=== PATIENT | female | born 1945 | race Caucasian/White ===

== ENCOUNTER → 2017-12-12 16:00 | Outpatient (CLI) | payer MEDICARE, OTHER, SELFPAY ==
--- NOTE | 2017-12-12 16:06 | RAD_ITS ---
STUDY: X-RAY CHEST REASON FOR EXAM: Female, 72 years old. Flulike symptoms. TECHNIQUE: PA and lateral views of the chest. COMPARISON: CT of the chest dated March 25, 2013. FINDINGS: The lungs are expanded. There is mild prominence of bronchovascular markings. There is no demonstrated pleural abnormality. There is mild cardiac enlargement. Normal mediastinum and maria a. There is prominence of the pulmonary hilar arteries with peripheral pulmonary vascular congestion. There is atherosclerotic tortuosity of the aortic arch and descending thoracic aorta. There is an increased kyphosis of the thoracic spine. There is multilevel spondylosis of the thoracic spine. Normal visualized ribs, clavicles, and shoulders. There is no demonstrated abnormality of the visualized soft tissue structures of the upper abdomen. RAD/Chest PA and Lateral IMPRESSION: Mild cardiomegaly and pulmonary congestion. Electronically Signed: Dulce Maria Wills MD at 10:31 EST , Service support ,
== END ==
PROVIDERS: Family Provider Family Medicine; PCP Family Medicine; Visit Provider Family Medicine
DX: R68.89 Other general symptoms and signs (principal)
CPT/HCPCS: 71046

== ENCOUNTER → 2017-12-22 16:36 | Outpatient (CLI) | payer MEDICARE, OTHER, SELFPAY ==
[2017-12-22 18:41] LABS: Absolute Lymphocyte Count 1.14 X10^3/ul (0.83-4.51); Absolute Neutrophil Count 6.1 X10^3/uL (2.0-7.7); Basophil% 1.2 % (0-1); Eosinophil# 0.29 X10^3/uL; Eosinophils% 3.5 % (0-5); Hematocrit 37.8 % (37-47); Hemoglobin 12.3 g/dl (12.0-15.0); Lymphocyte # 1.14 X10^3/ul (4.0); Lymphocyte % 13.7 % (19-41); Mean Corp Hgb Conc 32.5 g/gl (32-36); Mean Corpuscular Hgb 29.2 pg (27.0-32.0); Mean Corpuscular Volume 89.8 fL (81-99); Mean Platelet Vol. 11.1 fl (6.2-12.0); Monocyte# 0.72 X10^3/uL; Monocyte% 8.7 % (0-10); Neutrophil # 6.05 X10^3/uL (2.7-7.7); Neutrophil % 72.7 % (47-70); Platelet Count 285 K/mm3 (150-450); RBC Distribution Width CV 12.8 % (11.6-14.6); RBC Distribution Width SD 41.3 fl (35.1-43.9); Red Blood Count 4.21 M/mm3 (4.2-5.4); White Blood Count 8.3 K/mm3 (4.4-11.0)
[2017-12-22 18:54] LABS: ALB/GLOB Ratio 0.9 RATIO (0.9-2.4); AST(SGOT) 26 U/L (15-37); Alanine Aminotransfer ALT/SGPT 28 U/L (13-56); Albumin, Serum 3.5 g/dL (3.2-5.0); Alkaline Phosphatase 69 U/L (45-117); Anion Gap 8 (5-15); BUN 22 mg/dL (7-18); CRP 6.82 mg/L (0.0-3.0); Calcium,Total 9.1 mg/dL (8.5-10.1); Chloride 102 mmol/L (98-107); Creatinine, Serum 1.47 mg/dL (0.55-1.02); EST Glomerular Filtration Rate 37 mL/min (>60); Est Glom Filt Rate - Afr Amer 45 mL/min (>60); Globulin 3.8 g/dL (2.2-4.2); Glucose 110 mg/dL (74-106); Potassium 4.2 mmol/L (3.5-5.1); Protein, Total 7.3 g/dL (6.4-8.2); Sodium Level 138 mmol/L (136-145)
[2017-12-22 18:55] LABS: POSITIVE COUNT NO; POSITIVE DIFFERENTIAL NO; POSITIVE MORPHOLOGY NO
[2017-12-22 19:12] LABS: Erythrocyte Sedimentation Rate 68 mm/hr (0-30)
== END ==
PROVIDERS: Family Provider Family Medicine; PCP Family Medicine; Visit Provider Internal Medicine Rheumatology
DX: L40.59 Other psoriatic arthropathy (principal); M79.7 Fibromyalgia; L40.8 Other psoriasis; M15.9 Polyosteoarthritis, unspecified; K21.0 Gastro-esophageal reflux disease with esophagitis; M47.892 Other spondylosis, cervical region; E11.9 Type 2 diabetes mellitus without complications; I10 Essential (primary) hypertension; E78.5 Hyperlipidemia, unspecified; E03.9 Hypothyroidism, unspecified; J45.909 Unspecified asthma, uncomplicated; I89.0 Lymphedema, not elsewhere classified; L71.9 Rosacea, unspecified
CPT/HCPCS: 36415; 80053; 85025; 85652; 86140

== ENCOUNTER → 2018-01-07 13:07 | Outpatient (CLI) | payer MEDICARE, OTHER, SELFPAY ==
--- NOTE | 2018-01-07 14:32 | NEURO ---
NCS and/or EMG Patient Report Ordering Doctor: Randee Driver DATE OF SERVICE: 01/07/18 Tanisha Rutherford is a 72-year-old female presents for electrodiagnostic testing of the right upper limb. She has chief complaint of numbness and tingling in the right hand radiating to the elbow. Electrodiagnostic findings: Significant prolongation of right median motor distal latency with reduced amplitude and conduction velocity. Normal right ulnar motor response, including conduction across the elbow. Prolonged right median F wave. Prolonged right median sensory distal latency. Normal right ulnar and radial sensory responses. On needle EMG, all muscles tested in the right upper limb show no evidence of denervation with normal motor unit action potentials. Electrodiagnostic impression: This is an abnormal study in the right upper limb. 1. Electrodiagnostic findings demonstrate right-sided median mononeuropathy. This is consistent with a severe right carpal tunnel syndrome. 2. No electrodiagnostic evidence for cervical radiculopathy. If there are any further questions, please do not hesitate to contact me.
== END ==
PROVIDERS: Family Provider Family Medicine; PCP Family Medicine; Visit Provider Internal Medicine Rheumatology
DX: M06.4 Inflammatory polyarthropathy (principal); M79.7 Fibromyalgia; M15.9 Polyosteoarthritis, unspecified; K21.0 Gastro-esophageal reflux disease with esophagitis; M47.892 Other spondylosis, cervical region; E11.9 Type 2 diabetes mellitus without complications; I10 Essential (primary) hypertension; E78.5 Hyperlipidemia, unspecified; E03.9 Hypothyroidism, unspecified; H40.9 Unspecified glaucoma; J45.909 Unspecified asthma, uncomplicated; G47.33 Obstructive sleep apnea (adult) (pediatric); I89.0 Lymphedema, not elsewhere classified; L71.9 Rosacea, unspecified
CPT/HCPCS: 95886; 95909

== ENCOUNTER → 2018-01-07 15:12 | Outpatient (CLI) | payer MEDICARE, OTHER, SELFPAY ==
[2018-01-07 17:36] LABS: Absolute Lymphocyte Count 1.04 X10^3/ul (0.83-4.51); Absolute Neutrophil Count 4.3 X10^3/uL (2.0-7.7); Basophil# 0.12 X10^3/uL; Basophil% 1.9 % (0-1); Eosinophil# 0.39 X10^3/uL; Eosinophils% 6.2 % (0-5); Hematocrit 37.4 % (37-47); Hemoglobin 12.1 g/dl (12.0-15.0); Lymphocyte # 1.04 X10^3/ul (4.0); Lymphocyte % 16.5 % (19-41); Mean Corp Hgb Conc 32.4 g/gl (32-36); Mean Corpuscular Hgb 28.7 pg (27.0-32.0); Mean Corpuscular Volume 88.8 fL (81-99); Mean Platelet Vol. 11.2 fl (6.2-12.0); Monocyte# 0.47 X10^3/uL; Monocyte% 7.5 % (0-10); Neutrophil # 4.26 X10^3/uL (2.7-7.7); Neutrophil % 67.7 % (47-70); Platelet Count 259 K/mm3 (150-450); RBC Distribution Width CV 12.7 % (11.6-14.6); RBC Distribution Width SD 40.9 fl (35.1-43.9); Red Blood Count 4.21 M/mm3 (4.2-5.4); White Blood Count 6.3 K/mm3 (4.4-11.0)
[2018-01-07 17:37] LABS: POSITIVE COUNT NO; POSITIVE DIFFERENTIAL NO; POSITIVE MORPHOLOGY NO
[2018-01-07 17:47] LABS: AST(SGOT) 22 U/L (15-37); Alanine Aminotransfer ALT/SGPT 25 U/L (13-56); Albumin, Serum 3.5 g/dL (3.2-5.0); Alkaline Phosphatase 65 U/L (45-117); Anion Gap 9 (5-15); BUN 25 mg/dL (7-18); BUN/Creat Ratio 21.7 RATIO (10-20); Calcium,Total 9.1 mg/dL (8.5-10.1); Chloride 104 mmol/L (98-107); Creatinine, Serum 1.15 mg/dL (0.55-1.02); EST Glomerular Filtration Rate 49 mL/min (>60); Est Glom Filt Rate - Afr Amer 60 mL/min (>60); Globulin 3.5 g/dL (2.2-4.2); Glucose 105 mg/dL (74-106); Potassium 4.4 mmol/L (3.5-5.1); Sodium Level 138 mmol/L (136-145)
== END ==
PROVIDERS: Family Provider Family Medicine; PCP Family Medicine; Visit Provider Internal Medicine Rheumatology
DX: M06.4 Inflammatory polyarthropathy (principal); M79.7 Fibromyalgia; M15.9 Polyosteoarthritis, unspecified; K21.0 Gastro-esophageal reflux disease with esophagitis; M47.892 Other spondylosis, cervical region; E11.9 Type 2 diabetes mellitus without complications; I10 Essential (primary) hypertension; E78.5 Hyperlipidemia, unspecified; E03.9 Hypothyroidism, unspecified; H40.9 Unspecified glaucoma; J45.909 Unspecified asthma, uncomplicated; G47.33 Obstructive sleep apnea (adult) (pediatric); I89.0 Lymphedema, not elsewhere classified; L71.9 Rosacea, unspecified
CPT/HCPCS: 36415; 80053; 85025; 95886; 95909

== ENCOUNTER → 2018-01-15 12:40 | Outpatient (CLI) | payer MEDICARE, OTHER, SELFPAY ==
--- NOTE | 2018-01-15 12:44 | ECHOCS_ITS ---
Reason For Study: CHF Procedure This was a 2D Doppler, Color Flow transthoracic echocardiogram. The study was technically difficult. The study was technically limited. Due to body habitus. Contrast injection was performed. Exam performed in department. Left Ventricle Normal LV size. Mild concentric left ventricular hypertrophy. Left ventricular systolic function is normal. The estimated ejection fraction is 55 %. No regional wall motion abnormalities noted. Right Ventricle Normal RV size. Normal systolic function. Atria The left atrium is mildly enlarged. Normal right atrium. Mitral Valve Mitral valve not well visualized. Tricuspid Valve The tricuspid valve is not well visualized. Mild (1+) tricuspid valve insufficiency. Pulmonary artery systolic pressure is 34 mmHg. Aortic Valve The aortic valve is not well visualized. Pulmonic Valve The pulmonic valve is not well visualized. Great Vessels Normal aortic root. The pulmonary artery is normal size. Normal inferior vena cava. Medication 22 gauge I.V. with prn adaptor inserted into right arm. Diluted definity 4.0ml given slow IV push to enhance endocardial definition. MMode/2D Measurements & Calculations LVIDd: 5.5 cm IVSd: 1.4 cm Ao root diam: 3.1 cm LVIDs: 3.7 cm LVPWd: 1.4 cm LA dimension: 4.5 cm RVDd: 3.1 cm FS: 32.2 % LAV(MOD-bp): 74.4 ml LA A4 area: 22.4 cm2 RA A4 area: 17.9 cm2 LAV(MOD-bp) Indexed: 31.6 ml/m2 LAV(MOD-sp2): 79.5 ml LAV(MOD-sp4): 68.9 ml Time Measurements MV dec time: 0.23 sec Doppler Measurements & Calculations MV E max dionicio: 110.0 cm/sec Lat Peak E' Dionicio: 12.2 cm/sec Med Peak E' Dionicio: 11.1 cm/sec MV A max dionicio: 124.5 cm/sec E/E' lat: 9.1 E/E' med: 9.9 MV E/A: 0.88 Ao V2 max: 168.7 cm/sec LV V1 max: 134.8 cm/sec PA V2 max: 119.4 cm/sec Ao max P.4 mmHg LV V1 max P.3 mmHg TR max dionicio: 267.9 cm/sec TR max P.3 mmHg Interpretation Summary Normal LV size. Mild concentric left ventricular hypertrophy. Left ventricular systolic function is normal. The estimated ejection fraction is 55 %. Mild (1+) tricuspid valve insufficiency. Pulmonary artery systolic pressure is 34 mmHg. Contrast injection was performed. Ordering Physician: Coral Lima Referring Physician: Coral Lima Performed By: Lou Govea RDCS, RVT
== END ==
PROVIDERS: Family Provider Family Medicine; PCP Family Medicine; Visit Provider Family Medicine
DX: I50.9 Heart failure, unspecified (principal); Z79.899 Other long term (current) drug therapy
CPT/HCPCS: 93306; Q9957; A4216; C8929

== ENCOUNTER 2018-02-11 06:31 | Day surgery (SDC) | payer MEDICARE, OTHER, SELFPAY ==
--- NOTE | 2018-02-05 10:58 | HP.PCM_ITS ---
History and Physical DATE OF SURGERY: 02/11/2018 SCHEDULED PROCEDURE: Right carpal tunnel release, trigger release right small finger HISTORY OF PRESENT ILLNESS: This is a 72-year-old female who is been having ongoing bilateral hand pain for approximately 4-5 months. Patient is right-hand dominant. She states the right is greater than the left. Patient reports numbness and tingling into the right index, middle, and ring fingers. She also complains of triggering and catching in the right small finger. She has difficulty with gripping objects. Patient states she drops things secondary to the pain and numbness and tingling. She cannot put on earrings due to this. Patient states the numbness and tingling does wake her up at night. She has tried bracing which has not been helpful. The numbness and tingling is now constant. She reports the left side is mostly at night and this seems to be exacerbated by increased used of the left hand. Patient denies any trauma or injury. After failing conservative measures and discussing all treatment options with Dr. Begum, the patient would like to proceed with a right carpal tunnel release and trigger finger release of the right small finger. Patient currently denies any chest pain, shortness of breath, fevers chills, recent infections. Patient has medical history pertinent for psoriatic arthritis, fibromyalgia, sleep apnea, diabetes. She has currently been taking Otezla in which she has been in a study. She states this is been helping her rheumatoid and psoriatic arthritis. 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 REVIEW OF SYSTEMS: ROS: Const: Denies change in appetite, fever,or weight change. CV: Denies chest pain, heart murmur and irregular heartbeat. Resp: Reports cough, pneumonia, SOB and wheezing, but denies tuberculosis. GI: Reports constipation, but denies diarrhea, difficulty swallowing, heartburn , nausea, bloody stools and vomiting. : . (F Genital Sx) Urinary: denies incontinence. Musculo: Reports limp, trouble walking and weakness, but denies leg swelling. Skin: Denies Raynaud's, history of shingles and tattoo. Neuro: Reports numbness/tingling but denies ambulatory dysfunction, dizziness and tremor. Psych: Reports insomnia, but denies anxiety and stress. Tate/Lymph: Reports anemia, bleeding/bruising tendency and past transfusion. Reviewed and updated. PAST MEDICAL HISTORY: Advance Care Plan: No Advance Directives Effective Date: 01/19/2018 PMH: Medical Problems: Arthritis - Osteo and rheumatoid Asthma, Fibromyalgia Psoriasis - psoriatic arthritis Sleep Apnea, Thyroid Disease, Vision Problems/Blind, Diabetes, Glaucoma Accidents: None Surgical Hx: Appendectomy, Gallbladder, Hysterectomy, Tubal Ligation, Tonsillectomy Anesthesia Complications: Nausea Assistive Devices: Glasses, Contacts, Cane Reviewed and updated. SOCIAL HISTORY: SH: Marital: .Occupation: Not Currently Working Retired.Work Status: Retired.Hand Dominance: Right-handed. Personal Habits: Cigarette Use: Former Cigarette Smoker.Alcohol: Occasionally.Drug Use: Denies Use.Enjoy Exercising: Exercises 1-3 x/month. Reviewed, no changes. VITALS: Ht: 64 Wt: 292lb Wt k.451 BMI: 50.1 BP: 130/80 Pulse: 78 Resp: 16 T: 98.2 T: 36.8C ALLERGIES: Penicillin Ketek MEDICATIONS: Levocetirizine Dihydrochloride 5 mg 1 by mouth every day, Omeprazole 40 mg 1 by mouth every day, Tramadol HCL 50 mg 1-2 by mouth every 6 hours as needed pain, Plaquenil 200 mg 1po bid, Calcium 600 600 mg 1 by mouth QDAY, Januvia 100 mg 1 by mouth every day, Cetirizine HCL 10 mg 1po qday, Montelukast Sodium 10 mg 1 by mouth every day, Co Q10 100 mg 1po qday, Pravastatin Sodium 20 mg daily, Gabapentin 400 mg 1po qday, Synthroid 175 mcg one PO daily except on friday, Otezla 30 mg 1 by mouth every day, Nexium 40 mg 1 by mouth every day, Enalapril Maleate 20 mg one PO daily PRE-OP EXAM: General appearance:NORMAL Other: Eyes: Conjunctivae and lids: NORMAL Pupils: ERR Ears, Nose, Mouth, and Throat: NORMAL Other: Inspection of lips, teeth and gums: NORMAL Other: Neck: Examination of neck: no masses noted. Respiratory: Assessment of respiratory effort: NORMAL Other: Auscultation of lungs: clear to auscultation no wheezes, rhonchi or rales. Cardiovascular: Auscultation of heart: regular rate and rhythm, no murmurs, gallops or rubs. Exam of carotid arteries: NORMAL Other: Gastrointestinal: Exam of abdomen: soft, nontender, nondistended bowel sounds present. PHYSICAL EXAMINATION: Evaluation of the right hand reveals tenderness to palpation over the A1 arturo of the right small finger. She does have active triggering. Remaining A1 pulleys are nontender palpation. She does have some mild thenar atrophy on the right. She has a positive failings, positive Tinel's, and positive carpal compression exam on the right. There is decreased sensation throughout the median nerve distribution. She has good range of motion of the right wrist. IMAGING STUDIES: EMG nerve conduction study exam was performed on January 07, 2018 which does reveal severe carpal tunnel syndrome on the right IMPRESSION: 1. Severe right carpal tunnel syndrome 2. Left carpal tunnel syndrome 3. Type 2 diabetes mellitus 4. Psoriatic and rheumatoid arthritis 5. Asthma 6. Sleep apnea: Currently uses BPAP 7. Thyroid disease 8. Fibromyalgia 9. Glaucoma PLAN: Dr. Begum did discuss and review with the patient all treatment options including surgical versus nonsurgical. Patient wishes to proceed with above- stated procedure. Potential risks, benefits, and complications of this procedure were discussed in detail including but not limited to , infection , nerve and blood vessel damage, persistent pain, numbness, tingling, paresthesias, blood clot, pulmonary embolism, and requirement for further surgery. The patient expressed full understanding has no further questions for the doctor. Patient does agree to proceed with the above-stated procedure and has signed the surgery consent form. ___ I have re-examined the patient. There are no clinical changes since date of exam. ___ See progress notes for changes. ___ Dictated on admission Date: Time: Signature:
[2018-02-11 06:58] VITALS: BP 153/52; PULSE 66; RESP 18; TEMP 36.9; O2SAT 96; BMI 51.2
[2018-02-11 07:15] LABS: Bedside Glucose 89 mg/dL (70-110)
[2018-02-11] MEDS: Clindamycin 900 MG/50 ML BAG 75 MG IV (07:57)
[2018-02-11] MEDS: Bupivacaine Mpf 0.5% 30 ML VIAL (08:15)
[2018-02-11 08:29] VITALS: BP 116/52; BP 153/52; PULSE 72; RESP 16; TEMP 36.9; O2SAT 97
[2018-02-11 08:35] VITALS: BP 119/53; BP 153/52; PULSE 71; RESP 18; O2SAT 97
--- NOTE | 2018-02-11 08:35 | PCM.OPRPT ---
Report of Operation Date of Procedure: 02/11/18 Pre-Operative Diagnosis: Right carpal tunnel syndrome. Right fifth digit trigger finger Post-Operative Diagnosis: Right carpal tunnel syndrome. Right fifth digit trigger finger Surgery/Procedure Performed:: 1. Right carpal tunnel release. 2. 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 After discussing risks and benefits including but not limited to blood loss, DVTs, PEs, neurovascular damage, infection, hematoma and general risk of anesthesia, the patient demonstrated understanding wish to proceed with right open carpal tunnel release Procedure: On the date of the procedure, the patient's right upper extremity was marked in the preoperative area. Patient was taken back to the operating room, where the tourniquet was placed on the right upper extremity. Patient was given light sedation. All bony prominences are identified well-padded. Anesthesia assumed control C-spine and airway and remained in control throughout the remainder the procedure. Abdullahi block was administered by anesthesia. The right upper extremity was prepped in sterile fashion. Surgeon then scrub. Upon reentering the room, the right upper extremity was prepped in a standard orthopedic fashion. A timeout was called and everyone agreed upon the side, the site, the procedure to be performed, patient identity and antibiotics given. The incision was marked out. Incision was taken at the skin subtenons tissue fat down to fascia. Fascia was then lightly tethered until the median nerve was visible. A [place] was placed proximally and distally, and then scissors were placed proximally and distally to release the transverse carpal ligament. During the release the others were never completely closed. The [place] was then placed proximally and distally once more to verify the transverse carpal ligament had been adequately released. The wound was then copiously irrigated out with normal saline. Wound was then closed using 3-0 nylon suture. Attention was then directed towards the fifth digit where the palmar crease was noted. A transverse incision was made in the palmar crease to the skin. Blunt dissection was taken down to subcutaneous tissues fat down to the A1 arturo. Once the A1 arturo was identified it was split longitudinally and a portion of the radial flap was dissected. Once it was completely released finger was taken through range of motion no active triggering was noted. 14 cc of 50-50 mixture of 1% lidocaine and 0.5% Sensorcaine without epinephrine injection was given at the 2 surgical sites. Xeroform dressing was placed, sterile dressing was placed, compressive dressing was placed. Tourniquet was let down. Volar splint was placed. Patient was awakened by anesthesia and transferred to the PACU for recovery. Postoperative plan: The patient will follow up in 2 weeks for removal splint removal sutures. At that time if they are doing well they will follow-up as needed. - Complications none - Admit VTE Documentation VTE Present on Admission: No VTE Mechan Device Prophylaxis: SCD's, Thigh High HARLEY Hose Reason prophylaxis not ordered:: Treatment Not Indicated
[2018-02-11 08:40] VITALS: BP 118/58; BP 153/52; PULSE 85; RESP 16; O2SAT 95
[2018-02-11 08:46] VITALS: BP 121/55; BP 153/52; PULSE 67; RESP 18; TEMP 36.9; O2SAT 94
[2018-02-11 09:30] VITALS: BP 153/52
== END 2018-02-11 09:37 | disposition home or self-care (01) ==
LOC: SDC 06:32 → AC 06:35
PROVIDERS: Family Provider Family Medicine; PCP Family Medicine; Visit Provider Specialist
PROC: (CPT 64721; principal; 2018-02-11 07:45)
DX: G56.01 Carpal tunnel syndrome, right upper limb (principal); M65.351 Trigger finger, right little finger; E11.9 Type 2 diabetes mellitus without complications; Z79.4 Long term (current) use of insulin; E78.00 Pure hypercholesterolemia, unspecified; K21.9 Gastro-esophageal reflux disease without esophagitis; Z79.899 Other long term (current) drug therapy; I10 Essential (primary) hypertension; G47.30 Sleep apnea, unspecified; Z87.891 Personal history of nicotine dependence; J45.909 Unspecified asthma, uncomplicated; M79.7 Fibromyalgia; M19.90 Unspecified osteoarthritis, unspecified site; E07.89 Other specified disorders of thyroid; E66.8 Other obesity; Z68.43 Body mass index [BMI] 50.0-59.9, adult; Z71.3 Dietary counseling and surveillance
CPT/HCPCS: 26055; 64721; 82962; J7120

== ENCOUNTER → 2018-03-11 16:00 | Outpatient (CLI) | payer MEDICARE, OTHER, SELFPAY ==
--- NOTE | 2018-03-11 16:10 | RAD_ITS ---
STUDY: X-RAY - LUMBAR SPINE REASON FOR EXAM: Female, 72 years old. Chronic back pain TECHNIQUE: 3 view(s) of the lumbar spine were obtained. COMPARISON: May 18, 2015 FINDINGS: Normal lumbar lordosis. There is no substantial scoliosis. There is a normal alignment of the vertebrae. There is multilevel endplate spondylosis of the lumbar vertebrae. There is multilevel facet hypertrophy. Normal disc space heights. There is atherosclerotic calcification of the abdominal aorta without a demonstrated aneurysm. RAD/Lumbar Spine 2 or 3 Views IMPRESSION: Degenerative changes of the spine, as detailed above. Electronically Signed: Marimar Heard MD at 23:25 EDT Tel , Service support ,
== END ==
PROVIDERS: Family Provider Family Medicine; PCP Family Medicine; Visit Provider Anesthesiology Pain Medicine
DX: M54.9 Dorsalgia, unspecified (principal); G89.29 Other chronic pain
CPT/HCPCS: 72100

== ENCOUNTER → 2018-04-02 13:09 | Outpatient (CLI) | payer MEDICARE, OTHER, SELFPAY ==
[2018-04-02 14:29] LABS: Absolute Lymphocyte Count 0.93 X10^3/ul (0.83-4.51); Absolute Neutrophil Count 5.4 X10^3/uL (2.0-7.7); Basophil# 0.09 X10^3/uL; Basophil% 1.3 % (0-1); Eosinophil# 0.22 X10^3/uL; Eosinophils% 3.1 % (0-5); Hematocrit 34.3 % (37-47); Hemoglobin 10.8 g/dl (12.0-15.0); Lymphocyte # 0.93 X10^3/ul (4.0); Lymphocyte % 13.1 % (19-41); Mean Corp Hgb Conc 31.5 g/gl (32-36); Mean Corpuscular Hgb 27.7 pg (27.0-32.0); Mean Corpuscular Volume 87.9 fL (81-99); Monocyte# 0.47 X10^3/uL; Monocyte% 6.6 % (0-10); Neutrophil # 5.39 X10^3/uL (2.7-7.7); Neutrophil % 75.8 % (47-70); POSITIVE COUNT NO; POSITIVE DIFFERENTIAL NO; POSITIVE MORPHOLOGY NO; Platelet Count 235 K/mm3 (150-450); RBC Distribution Width SD 44.5 fl (35.1-43.9); White Blood Count 7.1 K/mm3 (4.4-11.0)
[2018-04-02 14:51] LABS: Hemoglobin A1c 5.6 % (4.2-6.3)
[2018-04-02 15:03] LABS: AST(SGOT) 25 U/L (15-37); Alanine Aminotransfer ALT/SGPT 23 U/L (13-56); Albumin, Serum 3.4 g/dL (3.2-5.0); Alkaline Phosphatase 63 U/L (45-117); Anion Gap 6 (5-15); BUN 30 mg/dL (7-18); BUN/Creat Ratio 21.3 RATIO (10-20); Calcium,Total 8.6 mg/dL (8.5-10.1); Chloride 111 mmol/L (98-107); Creatinine, Serum 1.41 mg/dL (0.55-1.02); EST Glomerular Filtration Rate 39 mL/min (>60); Est Glom Filt Rate - Afr Amer 47 mL/min (>60); Globulin 3.3 g/dL (2.2-4.2); Glucose 122 mg/dL (74-106); Protein, Total 6.7 g/dL (6.4-8.2); Sodium Level 143 mmol/L (136-145)
== END ==
PROVIDERS: Family Provider Family Medicine; PCP Family Medicine; Visit Provider Family Medicine
DX: L40.59 Other psoriatic arthropathy (principal); M79.7 Fibromyalgia; L40.8 Other psoriasis; G56.01 Carpal tunnel syndrome, right upper limb; M15.9 Polyosteoarthritis, unspecified; K21.0 Gastro-esophageal reflux disease with esophagitis; M47.892 Other spondylosis, cervical region; E11.9 Type 2 diabetes mellitus without complications; I10 Essential (primary) hypertension; E78.5 Hyperlipidemia, unspecified; E03.9 Hypothyroidism, unspecified; H40.9 Unspecified glaucoma; J45.909 Unspecified asthma, uncomplicated
CPT/HCPCS: 36415; 80053; 83036; 84443; 85025

== ENCOUNTER → 2018-05-25 15:50 | Outpatient (CLI) | payer MEDICARE, OTHER, SELFPAY ==
[2018-05-25 18:07] LABS: Absolute Lymphocyte Count 1.09 X10^3/ul (0.83-4.51); Absolute Neutrophil Count 4.1 X10^3/uL (2.0-7.7); Basophil# 0.12 X10^3/uL; Eosinophil# 0.34 X10^3/uL; Eosinophils% 5.6 % (0-5); Hemoglobin 10.8 g/dl (12.0-15.0); Lymphocyte # 1.09 X10^3/ul (4.0); Lymphocyte % 17.8 % (19-41); Mean Corp Hgb Conc 31.8 g/gl (32-36); Mean Corpuscular Hgb 27.8 pg (27.0-32.0); Mean Corpuscular Volume 87.4 fL (81-99); Mean Platelet Vol. 11.1 fl (6.2-12.0); Monocyte% 8.2 % (0-10); Neutrophil # 4.06 X10^3/uL (2.7-7.7); Neutrophil % 66.2 % (47-70); Platelet Count 236 K/mm3 (150-450); RBC Distribution Width CV 12.4 % (11.6-14.6); RBC Distribution Width SD 38.8 fl (35.1-43.9); Red Blood Count 3.89 M/mm3 (4.2-5.4); White Blood Count 6.1 K/mm3 (4.4-11.0)
[2018-05-25 18:09] LABS: AST(SGOT) 22 U/L (15-37); Alanine Aminotransfer ALT/SGPT 28 U/L (13-56); Albumin, Serum 3.5 g/dL (3.2-5.0); Alkaline Phosphatase 67 U/L (45-117); Anion Gap 10 (5-15); BUN 24 mg/dL (7-18); BUN/Creat Ratio 18.6 RATIO (10-20); Calcium,Total 9.1 mg/dL (8.5-10.1); Chloride 105 mmol/L (98-107); Creatinine, Serum 1.29 mg/dL (0.55-1.02); EST Glomerular Filtration Rate 43 mL/min (>60); Est Glom Filt Rate - Afr Amer 52 mL/min (>60); Globulin 3.4 g/dL (2.2-4.2); Glucose 183 mg/dL (74-106); POSITIVE COUNT NO; POSITIVE DIFFERENTIAL NO; POSITIVE MORPHOLOGY NO; Potassium 4.6 mmol/L (3.5-5.1); Protein, Total 6.9 g/dL (6.4-8.2); Sodium Level 142 mmol/L (136-145)
== END ==
PROVIDERS: Family Provider Family Medicine; PCP Family Medicine; Visit Provider Family Medicine
DX: L40.59 Other psoriatic arthropathy (principal); M79.7 Fibromyalgia; L40.8 Other psoriasis; G56.01 Carpal tunnel syndrome, right upper limb; M15.9 Polyosteoarthritis, unspecified; K21.0 Gastro-esophageal reflux disease with esophagitis; M47.892 Other spondylosis, cervical region; E11.9 Type 2 diabetes mellitus without complications; E78.5 Hyperlipidemia, unspecified; E03.9 Hypothyroidism, unspecified; H40.9 Unspecified glaucoma; J45.909 Unspecified asthma, uncomplicated; I89.0 Lymphedema, not elsewhere classified
CPT/HCPCS: 36415; 80053; 85025

== ENCOUNTER → 2018-07-27 08:46 | Outpatient (CLI) | payer MEDICARE, OTHER, SELFPAY ==
[2018-07-27 10:11] LABS: Absolute Lymphocyte Count 1.24 X10^3/ul (0.83-4.51); Absolute Neutrophil Count 3.7 X10^3/uL (2.0-7.7); Basophil# 0.13 X10^3/uL; Basophil% 2.1 % (0-1); Eosinophil# 0.63 X10^3/uL; Eosinophils% 10.1 % (0-5); Hematocrit 35.8 % (37-47); Hemoglobin 11.4 g/dl (12.0-15.0); Lymphocyte # 1.24 X10^3/ul (4.0); Lymphocyte % 19.8 % (19-41); Mean Corp Hgb Conc 31.8 g/gl (32-36); Mean Corpuscular Hgb 27.1 pg (27.0-32.0); Mean Platelet Vol. 10.8 fl (6.2-12.0); Monocyte# 0.57 X10^3/uL; Monocyte% 9.1 % (0-10); Neutrophil # 3.66 X10^3/uL (2.7-7.7); Neutrophil % 58.6 % (47-70); Platelet Count 271 K/mm3 (150-450); RBC Distribution Width CV 12.5 % (11.6-14.6); RBC Distribution Width SD 38.1 fl (35.1-43.9); Red Blood Count 4.21 M/mm3 (4.2-5.4); White Blood Count 6.3 K/mm3 (4.4-11.0)
[2018-07-27 10:17] LABS: POSITIVE COUNT NO; POSITIVE DIFFERENTIAL NO; POSITIVE MORPHOLOGY NO
== END ==
PROVIDERS: Family Provider Family Medicine; PCP Family Medicine; Visit Provider Dermatology Pediatric Dermatology
DX: D69.2 Other nonthrombocytopenic purpura (principal); L40.59 Other psoriatic arthropathy; L29.8 Other pruritus; L30.9 Dermatitis, unspecified
CPT/HCPCS: 36415; 85025

== ENCOUNTER → 2018-09-30 10:36 | Outpatient (CLI) | payer MEDICARE, OTHER, SELFPAY ==
--- NOTE | 2018-09-30 10:40 | MRI_ITS ---
STUDY: MRI LUMBAR SPINE WITHOUT CONTRAST REASON FOR EXAM: Female, 72 years old. back pain, radiates down both legs. TECHNIQUE: Standardized fat and water weighted pulse sequences were obtained in the sagittal and axial planes. COMPARISON: July 26, 2009 FINDINGS: T12-L1: There is mild disc space narrowing and endplate spondylosis. There is no significant disc herniation, central canal or foraminal stenosis. Normal lumbar lordosis. There is no substantial scoliosis. Normal conus medullaris that terminates at the L1 L1-2: Normal endplates. Normal disc height, hydration and morphology. Normal bilateral facet joints. Normal central canal and bilateral lateral recesses. Normal bilateral intervertebral neural foramina. L2-3: There is minimal disc space narrowing and endplate spondylosis. There is no significant disc herniation, central canal or foraminal stenosis. L3-4: There is minimal disc space narrowing and endplate spondylosis. There is minimal disc bulge and increased moderate facet arthropathy without significant central canal or foraminal stenosis. L4-5: There is now minimal disc space narrowing and endplates spondylosis. There is minimal disc bulge and increased moderate facet arthropathy without significant central canal stenosis. There is mild bilateral foraminal stenosis now. L5-S1: Normal endplates. Normal disc height, hydration and morphology. There is increased now moderate facet thrombus. Normal central canal and bilateral lateral recesses. Normal bilateral intervertebral neural foramina. Normal visualized sacral ala. Normal visualized paraspinous soft tissue structures. MRI/Spine Lumbar (Routine) IMPRESSION: Increased multilevel degenerative changes with facet arthropathy Electronically Signed: Cedrick Dean MD at 11:54 EST Tel , Service support ,
== END ==
PROVIDERS: Family Provider Family Medicine; PCP Family Medicine; Referring Provider Anesthesiology Pain Medicine; Visit Provider Anesthesiology Pain Medicine
DX: M54.9 Dorsalgia, unspecified (principal); M79.606 Pain in leg, unspecified
CPT/HCPCS: 72148

== ENCOUNTER → 2018-12-01 12:53 | Outpatient (CLI) | payer MEDICARE, OTHER, SELFPAY ==
[2018-12-01 15:04] LABS: Amphetamine Urine VISTA NEGATIVE (<1000 ng/mL); Barbiturate Urine VISTA NEGATIVE (< 200 ng/mL); Benzodiazepine Urine VISTA NEGATIVE (< 200 ng/mL); Cocaine Urine VISTA NEGATIVE (< 300 ng/mL); Ecstacy Urine VISTA NEGATIVE (< 500 ng/mL); Methadone Urine VISTA NEGATIVE (< 300 ng/mL); PCP Urine VISTA NEGATIVE (< 25 ng/mL); THC Urine VISTA NEGATIVE (< 50 ng/mL); Vista UDS pH Range 6
--- OUTSIDE RECORDS SUMMARY | 2019-02-02 17:04 | XMS RPT_ITS ---
:1945 Author Organization [place] Support Name Relationship Address Phone R Unavailable Unavailable Unavailable CRISTINA BEATTY Unavailable [address] + [place] [address] R Unavailable Unavailable Unavailable CRISTINA BEATTY Unavailable [address] + [place] [address] R Unavailable Unavailable Unavailable CRISTINA BEATTY Unavailable [address] + [place] [address] R Unavailable Unavailable Unavailable CRISTINA BEATTY Unavailable [address] + [place] [address] R Unavailable Unavailable Unavailable CRISTINA BEATTY Unavailable [address] + [place] [address] R Unavailable Unavailable Unavailable CRISTINA BEATTY Unavailable [address] + [place] [address] R Unavailable Unavailable Unavailable CRISTINA BEATTY Unavailable [address] + [place] [address] R Unavailable Unavailable Unavailable CRISTINA BEATTY Unavailable [address] + [place] [address] R Unavailable Unavailable Unavailable CRISTINA BEATTY Unavailable [address] + [place] [address] R Unavailable Unavailable Unavailable CRISTINA BEATTY Unavailable [address] + [place] [address] R Unavailable Unavailable Unavailable ARTHUR BEATTYE Unavailable [address] + [place] [address] R Unavailable Unavailable Unavailable ARTHUR BEATTYE Unavailable [address] + [place] [address] R Unavailable Unavailable Unavailable ARTHUR BEATTYE Unavailable [address] + [place] [address] Care Team Providers Name Role Phone Basali, Ayman Attending Unavailable Basali, Ayman Referring Unavailable Jolliff, Coral Primary Care Unavailable Jolliff, Coral Attending Unavailable Jolliff, Coral Referring Unavailable Jolliff, Coral Primary Care Unavailable Vellanki, Randee Attending Unavailable Jolliff, Coral Primary Care Unavailable Vellanki, Randee Attending Unavailable Jolliff, Coral Primary Care Unavailable Vellanki, Randee Attending Unavailable Jolliff, Coral Primary Care Unavailable Jolliff, Coral Attending Unavailable Jolliff, Coral Referring Unavailable Jolliff, Coral Primary Care Unavailable Shy, Po Attending Unavailable Jolliff, Ocral Primary Care Unavailable Shy, Po Referring Unavailable Lis, Alexis Attending Unavailable Basali, Ayman Attending Unavailable Basali, Ayman Referring Unavailable Jolliff, Coral Primary Care Unavailable Jolliff, Coral Attending Unavailable Jolliff, Coral Referring Unavailable Jolliff, Coral Primary Care Unavailable Vellanki, Randee Consulting Unavailable Jolliff, Coral Attending Unavailable Jolliff, Coral Referring Unavailable Jolliff, Coral Primary Care Unavailable Vellanki, Randee Consulting Unavailable Chinyere, Kimberlee Attending Unavailable Jolliff, Coral Primary Care Unavailable Basali, Ayman Attending Unavailable Basali, Ayman Referring Unavailable Jolliff, Coral Primary Care Unavailable PROBLEMS PROBLEMS DATE TYPE CONDITION / CODE ATTENDING STATUS SOURCE Unknown F11.20 - Opioid BasalDuarte bui Active [facility] dependence, Community uncomplicated / Hospital F11.20(ICD-10) Repository Unknown D69.2 - Other Kimberlee Whitlock Active [facility] 8 nonthrombocytopenic Community purpura / D69.2(ICD-10) Hospital Repository Unknown M79.7 - Fibromyalgia / Coral Lima Active [facility] M79.7(ICD-10) Community Hospital Repository Unknown K21.0 - Coral Lima Active [facility] 8 Gastro-esophageal reflux Community disease with esophagitis Hospital / K21.0(ICD-10) Repository Unknown M15.9 - Coral Lima Active [facility] 8 Polyosteoarthritis, Community unspecified / Hospital M15.9(ICD-10) Repository Unknown L40.59 - Other psoriatic Coral Lima Active [facility] 8 arthropathy / Community L40.59(ICD-10) Hospital Repository Unknown L40.8 - Other psoriasis Clarence, Coral Active [facility] 8 / L40.8(ICD-10) [facility] Hospital Repository Unknown G56.01 - Carpal tunnel Clarence, Coral Active [facility] 8 syndrome, right upper Community limb / G56.01(ICD-10) Hospital Repository Unknown M47.892 - Other Jolliff, Coral Active [facility] 8 spondylosis, cervical Community region / M47.892(ICD-10) Hospital Repository Unknown E11.9 - Type 2 diabetes Clarence, Coral Active [facility] 8 mellitus without Community complications / Hospital E11.9(ICD-10) Repository Unknown E78.5 - Hyperlipidemia, Clarence, Coral Active [facility] 8 unspecified / Community E78.5(ICD-10) Hospital Repository Unknown E03.9 - Hypothyroidism, Clarence, Coral Active [facility] 8 unspecified / Community E03.9(ICD-10) Hospital Repository Unknown H40.9 - Unspecified Jolliff, Coral Active [facility] 8 glaucoma / H40.9(ICD-10) [facility] Hospital Repository Unknown J45.909 - Unspecified Jolliff, Coral Active [facility] 8 asthma, uncomplicated / Community J45.909(ICD-10) Hospital Repository Unknown I89.0 - Lymphedema, not Jolliff, Coral Active [facility] 8 elsewhere classified / Community I89.0(ICD-10) Hospital Repository Unknown I10 - Essential Jolliff, Coral Active [facility] 8 (primary) hypertension / Community I10(ICD-10) Hospital Repository Unknown M06.4 - Inflammatory Vellanki, 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 UNK TYPE CODE TESTS RESULT OUT OF RANGE REFERENCE UNITS LAB L505.0075 TO BE Normal CONFIRMED Result Comment: CONFIRMATORY TESTING FOR ALL POSITIVE URINE DRUG SCREEN RESULTS WILL ONLY BE SENT OUT UPON PHYSICIAN ORDER. VISTA Urine Drug Screen methods provide only preliminary analytical test results. A more specific alternate chemical method must be used in order to obtain a confirmed analytical result. Gas chromatography/mass spectrometery (GC/MS) is the preferred confirmatory method. Clinical consideration and professional judgement should be applied to any drug of abuse test result, particularly when preliminary positive results are used. URINE TCA TESTING MUST BE ORDERED SEPARATELY. USE TEST MNEMONIC: [facility] LAB L505.5005 VISTA UDS PH 6 Normal LAB L505.5015 <1000 ng/mL AMPHETAMINES Normal NEGATIVE LAB L505.5025 < 200 ng/mL BARBITIURATES Normal NEGATIVE LAB L505.5035 < 200 ng/mL BENZODIAZIPINE Normal NEGATIVE LAB L505.5045 < 300 ng/mL COCAINE Normal NEGATIVE LAB L505.5055 < 500 ng/mL ECSTACY Normal NEGATIVE LAB L505.5065 < 300 ng/mL METHADONE Normal NEGATIVE LAB L505.5075 < 300 ng/mL OPIATES Normal NEGATIVE LAB L505.5085 < 25 ng/mL PCP Normal NEGATIVE LAB L505.5095 < 50 ng/mL THC Normal NEGATIVE Performed By: #### L505.5000 #### [facility] [address] [place], [address] SPINE LUMBAR Observed: 09/30/2018 Status: F Source: [place] (ROUTINE) 10:41 AM [facility] Imaging Services [address] [place] [address] Spine Lumbar (Routine) MR#: [id number] Acct: [id number] Name: TANISHA BEATTY Rep #: [id number] : 1945 F 72 From: Cedrick Dean PCP: Coral Lima MD Status: REG CLI Study: Spine Lumbar (Routine) Date of Exam: 09/30/18 Exam# [id number] Ordering Dr: Duarte Espinal MD STUDY: MRI LUMBAR SPINE WITHOUT CONTRAST REASON FOR EXAM: Female, 72 years old. back pain, radiates down both legs. TECHNIQUE: Standardized fat and water weighted pulse sequences were obtained in the sagittal and axial planes. COMPARISON: July 26, 2009 FINDINGS: T12-L1: There is mild disc space narrowing and endplate spondylosis. There is no significant disc herniation, central canal or foraminal stenosis. Normal lumbar lordosis. There is no substantial scoliosis. Normal conus medullaris that terminates at the L1 L1-2: Normal endplates. Normal disc height, hydration and morphology. Normal bilateral facet joints. Normal central canal and bilateral lateral recesses. Normal bilateral intervertebral neural foramina. L2-3: There is minimal disc space narrowing and endplate spondylosis. There is no significant disc herniation, central canal or foraminal stenosis. L3-4: There is minimal disc space narrowing and endplate spondylosis. There is minimal disc bulge and increased moderate facet arthropathy without significant central canal or foraminal stenosis. L4-5: There is now minimal disc space narrowing and endplates spondylosis. There is minimal disc bulge and increased moderate facet arthropathy without significant central canal stenosis. There is mild bilateral foraminal stenosis now. L5-S1: Normal endplates. Normal disc height, hydration and morphology. There is increased now moderate facet thrombus. Normal central canal and bilateral lateral recesses. Normal bilateral intervertebral neural foramina. Normal visualized sacral ala. Normal visualized paraspinous soft tissue structures. MRI/Spine Lumbar (Routine) IMPRESSION: Increased multilevel degenerative changes with facet arthropathy Electronically Signed: Cedrick Dean MD at 11:54 EST Tel , Service support , CC: Coral Lima MD; Duarte Espinal MD Wharf Hand: Signed CBC W/DIFF, AUTOMATED Collected: 07/27/2018 Status: F Source: [place] 8:47 AM [facility] TYPE CODE TESTS RESULT OUT OF RANGE REFERENCE UNITS LAB L100.1000 4.4-11.0 K/mm3 Normal WBC 6.3 LAB L100.1200 4.2-5.4 M/mm3 Normal RBC 4.21 LAB L100.1300 12.0-15.0 g/dl Low HGB 11.4 LAB L100.1400 37-47 % Low HCT 35.8 LAB L100.1500 81-99 fL Normal MCV 85.0 LAB L100.1600 27.0-32.0 pg Normal MCH 27.1 LAB L100.1700 32-36 g/gl Low MCHC 31.8 LAB L100.1810 11.6-14.6 % Normal RDW CV 12.5 LAB L100.1820 35.1-43.9 fl Normal RDW SD 38.1 LAB L100.1900 150-450 K/mm3 Normal PLT 271 LAB L100.2000 6.2-12.0 fl Normal MPV 10.8 LAB L100.2100 47-70 % Normal NEUT% 58.6 LAB L100.2200 19-41 % Normal LY% 19.8 LAB L100.2300 0-10 % Normal MONO% 9.1 LAB L100.2400 0-5 % High EO% 10.1 LAB L100.2500 0-1 % High BASO% 2.1 LAB L100.2550 0.0-0.9 % Normal IM GRAN % 0.300 Result Comment: IG% - Immature Granulocytes (promyelocytes, myelocytes and metamyelocytes) > 1% indicates that a LEFT SHIFT is Present. LAB L100.2620 2.0-7.7 X10 3/uL Normal Absolute Neut 3.7 LAB L100.2720 0.83-4.51 X10 3/ul Normal Absolute Lymph 1.24 Performed By: #### L100.0100 #### [facility] [address] [place], [place], [id number] COMPREHENSIVE METABOLIC Collected: 05/25/2018 Status: F Source: [place] [facility] 3:57 PM [facility] TYPE CODE TESTS RESULT OUT OF RANGE REFERENCE UNITS LAB L501.0100 74-106 mg/dL High GLU 183 Result Comment: Fasting Glucose result greater than or equal to 126 mg/dL suggests DIABETES MELLITUS per A.D.A. criteria. Please note revised GLUCOSE reference range effective 2017. LAB L501.1000 7-18 mg/dL High BUN 24 LAB L501.1100 0.55-1.02 mg/dL High CREAT,SERUM 1.29 Result Comment: The validity of the calculated GFR AND GFRAA in patients over 70 years has not been determined. Clinical correlation is essential. LAB L501.1110 >60 mL/min Low EST GFR 43 Result Comment: Non- GFR Calc LAB L501.1115 >60 mL/min Low EST GFR - AA 52 Result Comment: GFR Calc LAB L501.1300 10-20 RATIO Normal BUN/CRE 18.6 LAB L501.1500 6.4-8.2 g/dL T Normal PROT 6.9 LAB L501.1800 3.2-5.0 g/dL Normal ALB 3.5 LAB L501.1950 2.2-4.2 g/dL Normal GLOB 3.4 LAB L501.2000 0.9-2.4 RATIO Normal A/G 1.0 LAB L501.2200 8.5-10.1 mg/dL CA Normal 9.1 LAB L501.4100 15-37 U/L Normal AST 22 LAB L501.4305 45-117 U/L Normal ALK P 67 LAB L501.4405 13-56 U/L Normal ALT 28 LAB L501.4600 0.20-1.00 mg/dL T Normal BILI 0.40 LAB L501.5300 136-145 mmol/L NA Normal 142 LAB L501.5600 3.5-5.1 mmol/L K Normal 4.6 LAB L501.5900 98-107 mmol/L CL Normal 105 LAB L501.6100 21.0-32.0 mmol/L Normal CO2 27.0 LAB L501.6200 5-15 Normal GAP 10 Performed By: #### L500.4050 #### [facility] [address] [place], [address] CBC W/DIFF, AUTOMATED Collected: 05/25/2018 Status: F Source: [place] 3:57 PM [facility] TYPE CODE TESTS RESULT OUT OF RANGE REFERENCE UNITS LAB L100.1000 4.4-11.0 K/mm3 Normal WBC 6.1 LAB L100.1200 4.2-5.4 M/mm3 Low RBC 3.89 LAB L100.1300 12.0-15.0 g/dl Low HGB 10.8 LAB L100.1400 37-47 % Low HCT 34.0 LAB L100.1500 81-99 fL Normal MCV 87.4 LAB L100.1600 27.0-32.0 pg Normal MCH 27.8 LAB L100.1700 32-36 g/gl Low MCHC 31.8 LAB L100.1810 11.6-14.6 % Normal RDW CV 12.4 LAB L100.1820 35.1-43.9 fl Normal RDW SD 38.8 LAB L100.1900 150-450 K/mm3 Normal PLT 236 LAB L100.2000 6.2-12.0 fl Normal MPV 11.1 LAB L100.2100 47-70 % Normal NEUT% 66.2 LAB L100.2200 19-41 % Low LY% 17.8 LAB L100.2300 0-10 % Normal MONO% 8.2 LAB L100.2400 0-5 % High EO% 5.6 LAB L100.2500 0-1 % High BASO% 2.0 LAB L100.2550 0.0-0.9 % Normal IM GRAN % 0.200 Result Comment: IG% - Immature Granulocytes (promyelocytes, myelocytes and metamyelocytes) > 1% indicates that a LEFT SHIFT is Present. LAB L100.2620 2.0-7.7 X10 3/uL Normal Absolute Neut 4.1 LAB L100.2720 0.83-4.51 X10 3/ul Normal Absolute Lymph 1.09 Performed By: #### L100.0100 #### [facility] [address] [place], [place], [id number] CBC W/DIFF, AUTOMATED Collected: 04/02/2018 Status: F Source: [place] 1:28 PM [facility] Order Comment: DR. DRIVER ORDERED CMP, CBCD TYPE CODE TESTS RESULT OUT OF RANGE REFERENCE UNITS LAB L100.1000 4.4-11.0 K/mm3 Normal WBC 7.1 LAB L100.1200 4.2-5.4 M/mm3 Low RBC 3.90 LAB L100.1300 12.0-15.0 g/dl Low HGB 10.8 LAB L100.1400 37-47 % Low HCT 34.3 LAB L100.1500 81-99 fL Normal MCV 87.9 LAB L100.1600 27.0-32.0 pg Normal MCH 27.7 LAB L100.1700 32-36 g/gl Low MCHC 31.5 LAB L100.1810 11.6-14.6 % Normal RDW CV 14.0 LAB L100.1820 35.1-43.9 fl High RDW SD 44.5 LAB L100.1900 150-450 K/mm3 Normal PLT 235 LAB L100.2000 6.2-12.0 fl Normal MPV 10.0 LAB L100.2100 47-70 % High NEUT% 75.8 LAB L100.2200 19-41 % Low LY% 13.1 LAB L100.2300 0-10 % Normal MONO% 6.6 LAB L100.2400 0-5 % Normal EO% 3.1 LAB L100.2500 0-1 % High BASO% 1.3 LAB L100.2550 0.0-0.9 % Normal IM GRAN % 0.100 Result Comment: IG% - Immature Granulocytes (promyelocytes, myelocytes and metamyelocytes) > 1% indicates that a LEFT SHIFT is Present. LAB L100.2620 2.0-7.7 X10 3/uL Normal Absolute Neut 5.4 LAB L100.2720 0.83-4.51 X10 3/ul Normal Absolute Lymph 0.93 Performed By: #### L100.0100 #### [facility] [address] [place], [place], [id number] HEMOGLOBIN A1C Collected: 04/02/2018 Status: F Source: [place] 1:25 PM [facility] Order Comment: Order Date: 03/31/18 Order Info: 4548-4 - A1C TYPE CODE TESTS RESULT OUT OF RANGE REFERENCE UNITS LAB L501.9985 4.2-6.3 % Normal HGB A1C 5.6 Performed By: #### L501.9985, L501.9520 #### [facility] [address] [place], [place], [address] THYROID STIM HORMONE Collected: 04/02/2018 Status: F Source: [place] (TSH) 1:25 PM [facility] Order Comment: Order Date: 03/31/18 Order Info: 3016-3 - TSH TYPE CODE TESTS RESULT OUT OF RANGE REFERENCE UNITS LAB L501.9520 0.358-3.74 uIU/mL High TSH 14.70 Performed By: #### L501.9985, L501.9520 #### [facility] [place], [address] COMPREHENSIVE METABOLIC Collected: 04/02/2018 Status: F Source: [place] PROFIL 1:25 PM [facility] Order Comment: Order Date: 03/31/18 Order Info: 3016-3 - TSH TYPE CODE TESTS RESULT OUT OF RANGE REFERENCE UNITS LAB L501.0100 74-106 mg/dL High GLU 122 Result Comment: Fasting Glucose result from 100 to 125 mg/dL suggests IMPAIRED HOMEOSTASIS per A.D.A. criteria. Please note revised GLUCOSE reference range effective 2017. LAB L501.1000 7-18 mg/dL High BUN 30 LAB L501.1100 0.55-1.02 mg/dL High CREAT,SERUM 1.41 Result Comment: The validity of the calculated GFR AND GFRAA in patients over 70 years has not been determined. Clinical correlation is essential. LAB L501.1110 >60 mL/min Low EST GFR 39 Result Comment: Non- GFR Calc LAB L501.1115 >60 mL/min Low EST GFR - AA 47 Result Comment: GFR Calc LAB L501.1300 10-20 RATIO High BUN/CRE 21.3 LAB L501.1500 6.4-8.2 g/dL T Normal PROT 6.7 LAB L501.1800 3.2-5.0 g/dL Normal ALB 3.4 LAB L501.1950 2.2-4.2 g/dL Normal GLOB 3.3 LAB L501.2000 0.9-2.4 RATIO Normal A/G 1.0 LAB L501.2200 8.5-10.1 mg/dL CA Normal 8.6 LAB L501.4100 15-37 U/L Normal AST 25 Result Comment: Slight Hemolysis, Result may be falsely increased. LAB L501.4305 45-117 U/L Normal ALK P 63 LAB L501.4405 13-56 U/L Normal ALT 23 LAB L501.4600 0.20-1.00 mg/dL Normal T BILI 0.40 LAB L501.5300 136-145 mmol/L Normal NA 143 LAB L501.5600 3.5-5.1 mmol/L Normal K 5.0 Result Comment: Slight Hemolysis, Result may be falsely increased. LAB L501.5900 98-107 mmol/L High CL 111 LAB L501.6100 21.0-32.0 mmol/L Normal CO2 26.0 LAB L501.6200 5-15 Normal 6 GAP Performed By: #### L500.4050 #### [facility] [address] [place], [address] LUMBAR SPINE 2 OR 3 Observed: 03/11/2018 Status: F Source: [place] VIEWS 4:03 PM [facility] Imaging Services [address] [place] [address] Lumbar Spine 2 or 3 Views MR#: [id number] Acct: [id number] Name: TANISHA BEATTY Rep #: [id number] : 1945 F 72 From: Marimar Heard MD PCP: Coral Lima MD Status: REG CLI Study: Lumbar Spine 2 or 3 Views Date of Exam: 03/11/18 Exam# [id number] Ordering Dr: Duarte Espinal MD STUDY: X-RAY - LUMBAR SPINE REASON FOR EXAM: Female, 72 years old. Chronic back pain TECHNIQUE: 3 view(s) of the lumbar spine were obtained. COMPARISON: May 18, 2015 FINDINGS: Normal lumbar lordosis. There is no substantial scoliosis. There is a normal alignment of the vertebrae. There is multilevel endplate spondylosis of the lumbar vertebrae. There is multilevel facet hypertrophy. Normal disc space heights. There is atherosclerotic calcification of the abdominal aorta without a demonstrated aneurysm. RAD/Lumbar Spine 2 or 3 Views IMPRESSION: Degenerative changes of the spine, as detailed above. Electronically Signed: Marimar Heard MD at 23:25 EDT Tel , Service support , CC: Coral Lima MD; Duarte Espinal MD Wharf Hand: Signed OPERATIVE REPORT Observed: 02/11/2018 Status: F Source: [place] 8:39 AM [facility] Medical Records Department [address] [place] [address] Operative Report 02/11/18 0835 MR#: [id number] Acct: [id number] Name: TANISHA BEATTY Rep #: [id number] : 1945 72 From: Po Begum MD PCP: Coral Lima MD Status: REG [facility] Y Location: [place] [address] Report of Operation Date of Procedure: 02/11/18 Pre-Operative Diagnosis: Right carpal tunnel syndrome. Right fifth digit trigger finger Post-Operative Diagnosis: Right carpal tunnel syndrome. Right fifth digit trigger finger Surgery/Procedure Performed:: 1. Right carpal tunnel release. 2. 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 After discussing risks and benefits including but not limited to blood loss, DVTs, PEs, neurovascular damage, infection, hematoma and general risk of anesthesia, the patient demonstrated understanding wish to proceed with right open carpal tunnel release Procedure: On the date of the procedure, the patient's right upper extremity was marked in the preoperative area. Patient was taken back to the operating room, where the tourniquet was placed on the right upper extremity. Patient was given light sedation. All bony prominences are identified well-padded. Anesthesia assumed control C- spine and airway and remained in control throughout the remainder the procedure. Abdullahi block was administered by anesthesia. The right upper extremity was prepped in sterile fashion. Surgeon then scrub. Upon reentering the room, the right upper extremity was prepped in a standard orthopedic fashion. A timeout was called and everyone agreed upon the side, the site, the procedure to be performed, patient identity and antibiotics given. The incision was marked out. Incision was taken at the skin subtenons tissue fat down to fascia. Fascia was then lightly tethered until the median nerve was visible. A Cameron was placed proximally and distally, and then scissors were placed proximally and distally to release the transverse carpal ligament. During the release the others were never completely closed. The Cameron was then placed proximally and distally once more to verify the transverse carpal ligament had been adequately released. The wound was then copiously irrigated out with normal saline. Wound was then closed using 3-0 nylon suture. Attention was then directed towards the fifth digit where the palmar crease was noted. A transverse incision was made in the palmar crease to the skin. Blunt dissection was taken down to subcutaneous tissues fat down to the A1 arturo. Once the A1 arturo was identified it was split longitudinally and a portion of the radial flap was dissected. Once it was completely released finger was taken through range of motion no active triggering was noted. 14 cc of 50-50 mixture of 1% lidocaine and 0.5% Sensorcaine without epinephrine injection was given at the 2 surgical sites. Xeroform dressing was placed, sterile dressing was placed, compressive dressing was placed. Tourniquet was let down. Volar splint was placed. Patient was awakened by anesthesia and transferred to the PACU for recovery. Postoperative plan: The patient will follow up in 2 weeks for removal splint removal sutures. At that time if they are doing well they will follow-up as needed. - Complications none - Admit VTE Documentation VTE Present on Admission: No VTE Mechan Device Prophylaxis: SCD's, Thigh High HARLEY Hose Reason prophylaxis not ordered:: Treatment Not Indicated 02/11/18 0839 <Electronically signed by Po Begum MD> Date Po Begum MD CC: Coral Lima MD; Po Begum MD Signed BEDSIDE GLUCOSE Collected: 02/11/2018 Status: F Source: [place] 7:08 AM [facility] TYPE CODE TESTS RESULT OUT OF RANGE REFERENCE UNITS LAB L501.080 70-110 mg/dL Normal BEDSIDE GLU 89 Result Comment: MANAGEMENT OF PATIENT CARE PER NURSING PROTOCOL Performed By: #### L501.080 #### [facility] Point of Care [address] [place] [address] HISTORY AND PHYSICAL Observed: 02/05/2018 Status: F Source: [place] EXAM 11:12 AM [facility] Medical Records Department [address] [place] [address] History and Physical 02/05/18 1057 MR#: [id number] Acct: [id number] Name: TANISHA BEATTY Rep #: [id number] : 1945 72 From: Chapito Borrero PA-C PCP: Coral Lima MD Status: PRE [facility] Location: [facility] History and Physical DATE OF SURGERY: 02/11/2018 SCHEDULED PROCEDURE: Right carpal tunnel release, trigger release right small finger HISTORY OF PRESENT ILLNESS: This is a 72-year-old female who is been having ongoing bilateral hand pain for approximately 4-5 months. Patient is right-hand dominant. She states the right is greater than the left. Patient reports numbness and tingling into the right index, middle, and ring fingers. She also complains of triggering and catching in the right small finger. She has difficulty with gripping objects. Patient states she drops things secondary to the pain and numbness and tingling. She cannot put on earrings due to this. Patient states the numbness and tingling does wake her up at night. She has tried bracing which has not been helpful. The numbness and tingling is now constant. She reports the left side is mostly at night and this seems to be exacerbated by increased used of the left hand. Patient denies any trauma or injury. After failing conservative measures and discussing all treatment options with Dr. Begum, the patient would like to proceed with a right carpal tunnel release and trigger finger release of the right small finger. Patient currently denies any chest pain, shortness of breath, fevers chills, recent infections. Patient has medical history pertinent for psoriatic arthritis, fibromyalgia, sleep apnea, diabetes. She has currently been taking Otezla in which she has been in a study. She states this is been helping her rheumatoid and psoriatic arthritis. We are getting recommendations from her legislative aide with regards to stopping her medication prior to surgery. REVIEW OF SYSTEMS: ROS: Const: Denies change in appetite, fever,or weight change. CV: Denies chest pain, heart murmur and irregular heartbeat. Resp: Reports cough, pneumonia, SOB and wheezing, but denies tuberculosis. GI: Reports constipation, but denies diarrhea, difficulty swallowing, heartburn, nausea, bloody stools and vomiting. : . (F Genital Sx) Urinary: denies incontinence. Musculo: Reports limp, trouble walking and weakness, but denies leg swelling. Skin: Denies Raynaud's, history of shingles and tattoo. Neuro: Reports numbness/tingling but denies ambulatory dysfunction, dizziness and tremor. Psych: Reports insomnia, but denies anxiety and stress. Tate/Lymph: Reports anemia, bleeding/bruising tendency and past transfusion. Reviewed and updated. PAST MEDICAL HISTORY: Advance Care Plan: No Advance Directives Effective Date: 01/19/2018 PMH: Medical Problems: Arthritis - Osteo and rheumatoid Asthma, Fibromyalgia Psoriasis - psoriatic arthritis Sleep Apnea, Thyroid Disease, Vision Problems/Blind, Diabetes, Glaucoma Accidents: None Surgical Hx: Appendectomy, Gallbladder, Hysterectomy, Tubal Ligation, Tonsillectomy Anesthesia Complications: Nausea Assistive Devices: Glasses, Contacts, Cane Reviewed and updated. SOCIAL HISTORY: SH: Marital: .Occupation: Not Currently Working Retired.Work Status: Retired.Hand Dominance: Right-handed. Personal Habits: Cigarette Use: Former Cigarette Smoker.Alcohol: Occasionally.Drug Use: Denies Use.Enjoy Exercising: Exercises 1-3 x/month. Reviewed, no changes. VITALS: Ht: 64 Wt: 292lb Wt k.451 BMI: 50.1 BP: 130/80 Pulse: 78 Resp: 16 T: 98.2 T: 36.8C ALLERGIES: Penicillin Ketek MEDICATIONS: Levocetirizine Dihydrochloride 5 mg 1 by mouth every day, Omeprazole 40 mg 1 by mouth every day, Tramadol HCL 50 mg 1-2 by mouth every 6 hours as needed pain, Plaquenil 200 mg 1po bid, Calcium 600 600 mg 1 by mouth QDAY, Januvia 100 mg 1 by mouth every day, Cetirizine HCL 10 mg 1po qday, Montelukast Sodium 10 mg 1 by mouth every day, Co Q10 100 mg 1po qday, Pravastatin Sodium 20 mg daily, Gabapentin 400 mg 1po qday, Synthroid 175 mcg one PO daily except on friday, Otezla 30 mg 1 by mouth every day, Nexium 40 mg 1 by mouth every day, Enalapril Maleate 20 mg one PO daily PRE-OP EXAM: General appearance:NORMAL Other: Eyes: Conjunctivae and lids: NORMAL Pupils: ERR Ears, Nose, Mouth, and Throat: NORMAL Other: Inspection of lips, teeth and gums: NORMAL Other: Neck: Examination of neck: no masses noted. Respiratory: Assessment of respiratory effort: NORMAL Other: Auscultation of lungs: clear to auscultation no wheezes, rhonchi or rales. Cardiovascular: Auscultation of heart: regular rate and rhythm, no murmurs, gallops or rubs. Exam of carotid arteries: NORMAL Other: Gastrointestinal: Exam of abdomen: soft, nontender, nondistended bowel sounds present. PHYSICAL EXAMINATION: Evaluation of the right hand reveals tenderness to palpation over the A1 arturo of the right small finger. She does have active triggering. Remaining A1 pulleys are nontender palpation. She does have some mild thenar atrophy on the right. She has a positive failings, positive Tinel's, and positive carpal compression exam on the right. There is decreased sensation throughout the median nerve distribution. She has good range of motion of the right wrist. IMAGING STUDIES: EMG nerve conduction study exam was performed on January 07, 2018 which does reveal severe carpal tunnel syndrome on the right IMPRESSION: 1. Severe right carpal tunnel syndrome 2. Left carpal tunnel syndrome 3. Type 2 diabetes mellitus 4. Psoriatic and rheumatoid arthritis 5. Asthma 6. Sleep apnea: Currently uses BPAP 7. Thyroid disease 8. Fibromyalgia 9. Glaucoma PLAN: Dr. Begum did discuss and review with the patient all treatment options including surgical versus nonsurgical. Patient wishes to proceed with above- stated procedure. Potential risks, benefits, and complications of this procedure were discussed in detail including but not limited to , infection, nerve and blood vessel damage, persistent pain, numbness, tingling, paresthesias, blood clot, pulmonary embolism, and requirement for further surgery. The patient expressed full understanding has no further questions for the doctor. Patient does agree to proceed with the above-stated procedure and has signed the surgery consent form. ___ I have re-examined the patient. There are no clinical changes since date of exam. ___ See progress notes for changes. ___ Dictated on admission Date: Time: Signature: 02/05/18 1112 <Electronically signed by Chapito Borrero PA-C> Date Chapito Borrero PA-C [facility] Signature: Date (if applicable) CC: Coral Lima MD; Chapito HERNANDEZ Signed ECHO, COMPLETE W/ Observed: 01/15/2018 Status: F Source: [place] CONTRAST 3:52 PM [facility] Cardiovascular Services [address] [place] [address] Echo Complete W/ Contrast 01/15/18 1253 MR#: [id number] Acct: [id number] Name: TANISHA BEATTY Rep #: [id number] : 1945 72 From: Alexis Hays MD Attending Dr: Coral Lima MD Status: REG CLI Ordering Dr: Coral Lima MD Date: 01/15/18 Location: [facility] Sex: F C Admitted: Reason For Study: CHF Procedure This was a 2D Doppler, Color Flow transthoracic echocardiogram. The study was technically difficult. The study was technically limited. Due to body habitus. Contrast injection was performed. Exam performed in department. Left Ventricle Normal LV size. Mild concentric left ventricular hypertrophy. Left ventricular systolic function is normal. The estimated ejection fraction is 55 %. No regional wall motion abnormalities noted. Right Ventricle Normal RV size. Normal systolic function. Atria The left atrium is mildly enlarged. Normal right atrium. Mitral Valve Mitral valve not well visualized. Tricuspid Valve The tricuspid valve is not well visualized. Mild (1+) tricuspid valve insufficiency. Pulmonary artery systolic pressure is 34 mmHg. Aortic Valve The aortic valve is not well visualized. Pulmonic Valve The pulmonic valve is not well visualized. Great Vessels Normal aortic root. The pulmonary artery is normal size. Normal inferior vena cava. Medication 22 gauge I.V. with prn adaptor inserted into right arm. Diluted definity 4.0ml given slow IV push to enhance endocardial definition. MMode/2D Measurements AND Calculations LVIDd: 5.5 cm IVSd: 1.4 cm Ao root diam: 3.1 cm LVIDs: 3.7 cm LVPWd: 1.4 cm LA dimension: 4.5 cm RVDd: 3.1 cm FS: 32.2 % LAV(MOD-bp): 74.4 ml LA A4 area: 22.4 cm2 RA A4 area: 17.9 cm2 LAV(MOD-bp) Indexed: 31.6 ml/m2 LAV(MOD-sp2): 79.5 ml LAV(MOD-sp4): 68.9 ml Time Measurements MV dec time: 0.23 sec Doppler Measurements AND Calculations MV E max dionicio: 110.0 cm/sec Lat Peak E' Dionicio: 12.2 cm/sec Med Peak E' Dionicio: 11.1 cm/sec MV A max dionicio: 124.5 cm/sec E/E' lat: 9.1 E/E' med: 9.9 MV E/A: 0.88 Ao V2 max: 168.7 cm/sec LV V1 max: 134.8 cm/sec PA V2 max: 119.4 cm/sec Ao max P.4 mmHg LV V1 max P.3 mmHg TR max dionicio: 267.9 cm/sec TR max P.3 mmHg Interpretation Summary Normal LV size. Mild concentric left ventricular hypertrophy. Left ventricular systolic function is normal. The estimated ejection fraction is 55 %. Mild (1+) tricuspid valve insufficiency. Pulmonary artery systolic pressure is 34 mmHg. Contrast injection was performed. Ordering Physician: Coral Lima Referring Physician: Coral Lima Performed By: Lou Govea RDCS, RVT 01/15/18 1551 Date Alexis Hays MD CC: Coral Lima MD Date Dictated: 01/15/18 1253 Date Transcribed: 01/15/18 1551 Wharf Hand: Signed NCS AND/OR EMG Observed: 01/07/2018 Status: F Source: [place] PATIENT 3:50 PM [facility] Pulmonary Services/Neurology [address] [place] [address] MR#: [id number] Acct: [id number] Name: TANISHA BEATTY Rep #: [id number] : 1945 72 From: Delmy Wilson MD Referring Dr: Randee Driver MD Status: REG CLI Ordering Dr: Date: Location: [facility] Sex: F C NCS and/or EMG Patient Report Ordering Doctor: Randee Driver DATE OF SERVICE: 01/07/18 Tanisha Beatty is a 72-year-old female presents for electrodiagnostic testing of the right upper limb. She has chief complaint of numbness and tingling in the right hand radiating to the elbow. Electrodiagnostic findings: Significant prolongation of right median motor distal latency with reduced amplitude and conduction velocity. Normal right ulnar motor response, including conduction across the elbow. Prolonged right median F wave. Prolonged right median sensory distal latency. Normal right ulnar and radial sensory responses. On needle EMG, all muscles tested in the right upper limb show no evidence of denervation with normal motor unit action potentials. Electrodiagnostic impression: This is an abnormal study in the right upper limb. 1. Electrodiagnostic findings demonstrate right-sided median mononeuropathy. This is consistent with a severe right carpal tunnel syndrome. 2. No electrodiagnostic evidence for cervical radiculopathy. If there are any further questions, please do not hesitate to contact me. 01/07/18 1550 <Electronically signed by Delmy Wilson MD> Date Delmy Wilson MD CC: Coral Lima MD; Delmy Wilson Date Dictated: 01/07/18 1432 Date Transcribed: 01/07/18 143 Wharf Hand: AA Signed CBC W/DIFF, AUTOMATED Collected: 01/07/2018 Status: F Source: [place] 3:16 PM [facility] TYPE CODE TESTS RESULT OUT OF RANGE REFERENCE UNITS LAB L100.1000 4.4-11.0 K/mm3 Normal WBC 6.3 LAB L100.1200 4.2-5.4 M/mm3 Normal RBC 4.21 LAB L100.1300 12.0-15.0 g/dl Normal HGB 12.1 LAB L100.1400 37-47 % Normal HCT 37.4 LAB L100.1500 81-99 fL Normal MCV 88.8 LAB L100.1600 27.0-32.0 pg Normal MCH 28.7 LAB L100.1700 32-36 g/gl Normal MCHC 32.4 LAB L100.1810 11.6-14.6 % Normal RDW CV 12.7 LAB L100.1820 35.1-43.9 fl Normal RDW SD 40.9 LAB L100.1900 150-450 K/mm3 Normal PLT 259 LAB L100.2000 6.2-12.0 fl Normal MPV 11.2 LAB L100.2100 47-70 % Normal NEUT% 67.7 LAB L100.2200 19-41 % Low LY% 16.5 LAB L100.2300 0-10 % Normal MONO% 7.5 LAB L100.2400 0-5 % High EO% 6.2 LAB L100.2500 0-1 % High BASO% 1.9 LAB L100.2550 0.0-0.9 % Normal IM GRAN % 0.200 Result Comment: IG% - Immature Granulocytes (promyelocytes, myelocytes and metamyelocytes) > 1% indicates that a LEFT SHIFT is Present. LAB L100.2620 2.0-7.7 X10 3/uL Normal Absolute Neut 4.3 LAB L100.2720 0.83-4.51 X10 3/ul Normal Absolute Lymph 1.04 Performed By: #### L100.0100 #### [facility] [address] [place], [address] COMPREHENSIVE METABOLIC Collected: 01/07/2018 Status: F Source: [place] PROFIL 3:16 PM [facility] TYPE CODE TESTS RESULT OUT OF RANGE REFERENCE UNITS LAB L501.0100 74-106 mg/dL Normal GLU 105 Result Comment: Fasting Glucose result from 100 to 125 mg/dL suggests IMPAIRED HOMEOSTASIS per A.D.A. criteria. Please note revised GLUCOSE reference range effective 2017. LAB L501.1000 7-18 mg/dL High BUN 25 LAB L501.1100 0.55-1.02 mg/dL High CREAT,SERUM 1.15 Result Comment: The validity of the calculated GFR AND GFRAA in patients over 70 years has not been determined. Clinical correlation is essential. LAB L501.1110 >60 mL/min Low EST GFR 49 Result Comment: Non- GFR Calc LAB L501.1115 >60 mL/min Normal EST GFR - AA 60 Result Comment: GFR Calc LAB L501.1300 10-20 RATIO High BUN/CRE 21.7 LAB L501.1500 6.4-8.2 g/dL T Normal PROT 7.0 LAB L501.1800 3.2-5.0 g/dL Normal ALB 3.5 LAB L501.1950 2.2-4.2 g/dL Normal GLOB 3.5 LAB L501.2000 0.9-2.4 RATIO Normal A/G 1.0 LAB L501.2200 8.5-10.1 mg/dL CA Normal 9.1 LAB L501.4100 15-37 U/L Normal AST 22 LAB L501.4305 45-117 U/L Normal ALK P 65 LAB L501.4405 13-56 U/L Normal ALT 25 Result Comment: Please note revised ALT reference range effective 2017. LAB L501.4600 0.20-1.00 mg/dL Normal T BILI 0.40 LAB L501.5300 136-145 mmol/L Normal NA 138 LAB L501.5600 3.5-5.1 mmol/L Normal K 4.4 LAB L501.5900 98-107 mmol/L Normal CL 104 LAB L501.6100 21.0-32.0 mmol/L Normal CO2 25.0 LAB L501.6200 5-15 Normal GAP 9 Performed By: #### L500.4050 #### [facility] [address] [place], [place], [id number] COMPREHENSIVE METABOLIC Collected: 12/22/2017 Status: F Source: [facility] 4:40 PM [facility] TYPE CODE TESTS RESULT OUT OF RANGE REFERENCE UNITS LAB L501.0100 74-106 mg/dL High GLU 110 Result Comment: Fasting Glucose result from 100 to 125 mg/dL suggests IMPAIRED HOMEOSTASIS per A.D.A. criteria. Please note revised GLUCOSE reference range effective 2017. LAB L501.1000 7-18 mg/dL High BUN 22 LAB L501.1100 0.55-1.02 mg/dL High CREAT,SERUM 1.47 Result Comment: The validity of the calculated GFR AND GFRAA in patients over 70 years has not been determined. Clinical correlation is essential. LAB L501.1110 >60 mL/min Low EST GFR 37 Result Comment: Non- GFR Calc LAB L501.1115 >60 mL/min Low EST GFR - AA 45 Result Comment: GFR Calc LAB L501.1300 10-20 RATIO Normal BUN/CRE 15.0 LAB L501.1500 6.4-8.2 g/dL T Normal PROT 7.3 LAB L501.1800 3.2-5.0 g/dL Normal ALB 3.5 LAB L501.1950 2.2-4.2 g/dL Normal GLOB 3.8 LAB L501.2000 0.9-2.4 RATIO Normal A/G 0.9 LAB L501.2200 8.5-10.1 mg/dL CA Normal 9.1 LAB L501.4100 15-37 U/L Normal AST 26 LAB L501.4305 45-117 U/L Normal ALK P 69 LAB L501.4405 13-56 U/L Normal ALT 28 Result Comment: Please note revised ALT reference range effective 2017. LAB L501.4600 0.20-1.00 mg/dL Normal T BILI 0.50 LAB L501.5300 136-145 mmol/L Normal NA 138 LAB L501.5600 3.5-5.1 mmol/L Normal K 4.2 LAB L501.5900 98-107 mmol/L Normal CL 102 LAB L501.6100 21.0-32.0 mmol/L Normal CO2 28.0 LAB L501.6200 5-15 Normal GAP 8 Performed By: #### L500.4050, L501.6710 #### [facility] [address] [place], [address] CRP Collected: 12/22/2017 Status: F Source: [place] 4:40 PM [facility] TYPE CODE TESTS RESULT OUT OF RANGE REFERENCE UNITS LAB L501.6710 0.0-3.0 mg/L High 6.82 C-REACTIVE PROT Result Comment: C-Reactive Protein (CRP) provides useful information for the diagnosis, therapy and monitoring of inflammatory processes and associated diseases. For the evaluation of Relative Risk for Cardiovascular Disease, a High Sensitivity CRP (HSCRP) should be ordered. Performed By: #### L500.4050, L501.6710 #### [facility] [address] [facility] [place], [address] CBC W/DIFF, AUTOMATED Collected: 12/22/2017 Status: F Source: [place] 4:40 PM [facility] TYPE CODE TESTS RESULT OUT OF RANGE REFERENCE UNITS LAB L100.1000 4.4-11.0 K/mm3 Normal WBC 8.3 LAB L100.1200 4.2-5.4 M/mm3 Normal RBC 4.21 LAB L100.1300 12.0-15.0 g/dl Normal HGB 12.3 LAB L100.1400 37-47 % Normal HCT 37.8 LAB L100.1500 81-99 fL Normal MCV 89.8 LAB L100.1600 27.0-32.0 pg Normal MCH 29.2 LAB L100.1700 32-36 g/gl Normal MCHC 32.5 LAB L100.1810 11.6-14.6 % Normal RDW CV 12.8 LAB L100.1820 35.1-43.9 fl Normal RDW SD 41.3 LAB L100.1900 150-450 K/mm3 Normal PLT 285 LAB L100.2000 6.2-12.0 fl Normal MPV 11.1 LAB L100.2100 47-70 % High NEUT% 72.7 LAB L100.2200 19-41 % Low LY% 13.7 LAB L100.2300 0-10 % Normal MONO% 8.7 LAB L100.2400 0-5 % Normal EO% 3.5 LAB L100.2500 0-1 % High BASO% 1.2 LAB L100.2550 0.0-0.9 % Normal IM GRAN % 0.200 Result Comment: IG% - Immature Granulocytes (promyelocytes, myelocytes and metamyelocytes) > 1% indicates that a LEFT SHIFT is Present. LAB L100.2620 2.0-7.7 X10 3/uL Normal Absolute Neut 6.1 LAB L100.2720 0.83-4.51 X10 3/ul Normal Absolute Lymph 1.14 Performed By: #### L100.0100, L101.9900 #### [facility] [address] [place], [address] ERYTHROCYTE SED RATE Collected: 12/22/2017 Status: F Source: [place] 4:40 PM [facility] TYPE CODE TESTS RESULT OUT OF RANGE REFERENCE UNITS LAB L102.0000 0-30 mm/hr High SED RATE 68 Performed By: #### L100.0100, L101.9900 #### [facility] [address] [place], [address] CHEST PA AND LATERAL Observed: 12/12/2017 Status: F Source: [place] 4:06 PM [facility] Imaging Services [address] [place] [address] Chest PA and Lateral MR#: [id number] Acct: [id number] Name: TANISHA BEATTY Rep #: [id number] : 1945 F 72 From: Dulce Maria Wills MD PCP: Coral Lima MD Status: [facility] CLI Study: Chest PA and Lateral Date of Exam: 12/12/17 Exam# [id number] Ordering Dr: Coral Lima MD STUDY: X-RAY CHEST REASON FOR EXAM: Female, 72 years old. Flulike symptoms. TECHNIQUE: PA and lateral views of the chest. COMPARISON: CT of the chest dated March 25, 2013. FINDINGS: The lungs are expanded. There is mild prominence of bronchovascular markings. There is no demonstrated pleural abnormality. There is mild cardiac enlargement. Normal mediastinum and maria a. There is prominence of the pulmonary hilar arteries with peripheral pulmonary vascular congestion. There is atherosclerotic tortuosity of the aortic arch and descending thoracic aorta. There is an increased kyphosis of the thoracic spine. There is multilevel spondylosis of the thoracic spine. Normal visualized ribs, clavicles, and shoulders. There is no demonstrated abnormality of the visualized soft tissue structures of the upper abdomen. RAD/Chest PA and Lateral IMPRESSION: Mild cardiomegaly and pulmonary congestion. Electronically Signed: Dulce Maria Wills MD at 10:31 EST , Service support , CC: Coral Lima MD Wharf Hand: Signed ALLERGIES ALLERGIES DATE TYPE / CODE NAME / CODE REACTION SEVERITY SOURCE 02/05/2018 Drug Penicillins/ Swelling Unknown [facility] Allergy/4160 [id number]([place] [address](SNOMED XNORM) Repository CT) 02/05/2018 Drug telithromyci Nausea/[facility] n/[id number] [place] [address](SNOMED (RXNORM) Repository CT) ENCOUNTERS ENCOUNTERS ADMIT/DISCHARGE ACCOUNT ADMITTING ENCOUNTER LOCATION SOURCE NUMBER CLASS 12/01/2018 [id number] Ambulatory [place] [facility] ing:LAB Repository 09/30/2018 [id number] Ambulatory [place] 9 [facility] ing:MRI Repository 07/27/2018 [id number] Ambulatory [place] 6 [facility] ing:MFPLAB Repository 05/25/2018 [id number] Ambulatory [place] 7 [facility] ing:MTLAB Repository 04/02/2018 [id number] Ambulatory [place] 8 [facility] ing:MTLAB Repository 03/11/2018 [id number] Ambulatory [place] 9 [facility] ing:RAD Repository 02/11/2018/ [id number] Ambulatory [place] 8 9 [facility] ing:SDC Repository 01/15/2018 [id number] Ambulatory [place] 5 [facility] ing:CVS Repository 01/15/2018 [id number] Ambulatory BMSBuilding:W [place] 5 [facility] Repository 01/07/2018 [id number] Ambulatory [place] 4 [facility] ing:MFPLAB Repository 01/07/2018 [id number] Ambulatory [place] 3 [facility] ing:PSN Repository 12/22/2017 [id number] Ambulatory [place] 7 [facility] ing:MFPLAB Repository 12/12/2017 [id number] Ambulatory [place] 7 [facility] ing:MTRAD Repository PAYERS PAYERS ENCOUNTER GUARANTOR PAYER SUBSCRIBER SOURCE 12/01/2018 TANISHA L Primary TANISHA L [place] [id number] Insurance:MEDICARE YURICKDOB: [facility] [id number] Number: Repository [id number]: 330 [id number] [phone] (HP) Date:2018-12-01 12/01/2018 Secondary CRISTINA A [place] Insurance:[facility] [id number] Hospital Number: Repository [id number] Date:[id number] [address] [address]MO: 12/01/2018 Tertiary NOT GIVENUNK [place] Insurance:SELF PAY [facility] Number: Effective Repository Date:2018-12-01 09/30/2018 TANISHA L Primary TANISHA L [place] [id number] Insurance:MEDICARE YURICKDOB: [facility] [id number] Number: Repository [id number]: 330 [id number] [phone] (HP) Date:2018-09-24 09/30/2018 Secondary CRISTINA A [place] Insurance:[facility] YURICKDOB: [facility] [id number] Hospital Number: Repository [id number] Date:0833-77-73[address] [address]FX: 09/30/2018 Tertiary NOT GIVENUNK [place] Insurance:SELF PAY [facility] Number: Effective Repository Date:2018-09-24 07/27/2018 Tanisha L Primary Tanisha L [place] [id number] Insurance:MEDICARE YurickDOB: Community [facility] PART A [facility] [id number] Number: Repository [id number]: 330 [id number] [phone] () Date:2018-07-27 07/27/2018 Secondary CRISTINA A [place] Insurance:WPS YURICKDOB: [facility] FOR [facility] [id number] Hospital Number: Repository [id number] Date:1919-31-43TP [address] [address]MQ: 07/27/2018 Tertiary NOT GIVENUNK [place] Insurance:SELF PAY [facility] Hospital Number: Effective Repository Date:2018-07-27 05/25/2018 Tanisha L Primary Tanisha L [place] [id number] Insurance:MEDICARE YurickDOB: [facility] PART A [facility] [id number] Number: Repository [id number]: 330 [id number] [phone] () Date:2018-05-25 05/25/2018 Secondary CRISTINA A [place] Insurance:WPS YURICKDOB: [facility] FOR [facility] [id number] Hospital Number: Repository [id number] Date:6264-06-34BL [address] [address]QJ: 05/25/2018 Tertiary NOT GIVENUNK [place] Insurance:SELF PAY [facility] Hospital Number: Effective Repository Date:2018-05-25 04/02/2018 Tanisha L Primary Tanisha L [place] [id number] Insurance:MEDICARE YurickDOB: Community [facility] PART A [facility] [id number] Number: Repository [id number]: 330 [id number] [phone] (HP) Date:2018-04-02 04/02/2018 Secondary CRISTINA A Grec[place] Insurance:WPS YURICKDOB: [facility] [id number] Hospital Number: Repository [id number] Date:4434-05-22[address], [place] [address]PW: 04/02/2018 Tertiary NOT GIVENUNK [place] Insurance:SELF PAY [facility] Number: Effective Repository Date:2018-04-02 03/11/2018 Tanisha L Primary Tanisha L [place] [id number] Insurance:MEDICARE YurickDOB: Community [facility] PART A [facility] [id number] Number: Repository [id number]: 330 [id number] [phone] () Date:2018-03-11 03/11/2018 Secondary Cristina A [place] Insurance:WPS YurickDOB: [facility] [id number] Hospital Number: Repository [id number] Date:7526-57-27EE [address], [place] [address]CP: 03/11/2018 Tertiary NOT GIVENUNK [place] Insurance:SELF PAY [facility] Effective Repository Date:2018-03-11 02/11/2018 Tanisha L Primary Tanisha L Grecia [id number] Insurance:MEDICARE YurickDOB: Community Roger PART A [facility] [id number] Number: Repository [id number]: 330 [id number] [phone] () Date:2018-01-20 02/11/2018 Secondary Cristina A Grecia Insurance:WPS YurickDOB: [facility] FOR [facility] [id number] Hospital Number: Repository [id number] Date:[id number], [place] [address]HX: 02/11/2018 Tertiary NOT GIVENUNK Grecia Insurance:SELF PAY Community [facility] Number: Effective Repository Date:2018-01-20 01/15/2018 Tanisha L Primary Tanisha L Peebles [id number] Insurance:MEDICARE YurickDOB: Community Roger PART A [facility] [id number] Number: Repository [id number]: 330 [id number] [phone] (HP) Date:2017-12-30 01/15/2018 Secondary Cristina A Peebles Insurance:WPS YurickDOB: [facility] [id number] Hospital Number: Repository [id number] Date:1489-37-62XZ [address] [address]DD: 01/15/2018 Tertiary NOT GIVENUNK [place]eebles Insurance:SELF PAY [facility] Hospital Number: Effective Repository Date:2017-12-30 01/15/2018 Tanisha L Primary Tanisha L Peebles [id number] Insurance:MEDICARE YurickDOB: Community Roger PART A [id number] [place] [facility] [id number]: 330 [id number] [phone] (HP) Date:2017-12-30 01/15/2018 Secondary Cristina A Peebles Insurance:WPS YurickDOB: [facility] [id number] Hospital Number: Repository [id number] Date:8976-73-52HM [address] [address]SL: 01/15/2018 Tertiary NOT GIVENUNK [place]eebles Insurance:SELF PAY [facility] Hospital Number: Effective Repository Date:2018-01-15 01/07/2018 Tanisha L Primary Tanisha L Grecia [id number] Insurance:MEDICARE YurickDOB: Community Roger PART A [facility] [id number] [place] Number[facility] Repository [id number]: 330 [id number] [phone] (HP) Date:2018-01-07 01/07/2018 Secondary Cristina A Grecia Insurance:WPS YurickDOB: [facility] [id number] Hospital Number: Repository [id number] Date:[id number] [address] [address]NM: 01/07/2018 Tertiary NOT GIVENUNK [place]ee[place] Insurance:SELF PAY [facility] Number: Effective Repository Date:2018-01-07 01/07/2018 Tanisha L Primary Tanisha L Peebles [id number] Insurance:MEDICARE YurickDOB: Community Roger PART A [facility] [id number] Number[place]ository [id number]: 330 [id number] [phone] () Date:2017-10-20 01/07/2018 Secondary Cristina A Grecia Insurance:WPS YurickDOB: [facility] [id number] Hospital Number: Repository [id number] Date:0090-19-39BM [address] [address]RG: 01/07/2018 Tertiary NOT GIVENUNK Grecia Insurance:SELF PAY [facility] Hospital Number: Effective Repository Date:2017-10-20 12/22/2017 Tanisha L Primary Tanisha L Grecia [id number] Insurance:MEDICARE YurickDOB: Community Roger PART A [facility] [id number] [id number]: 330 [id number] [phone] () Date:2017-12-22 12/22/2017 Secondary Cristina A Peebles Insurance:WPS YurickDOB: [facility] [id number] Hospital Number: Repository [id number] Date:0925-64-53BJ [address] [address]GX: 12/22/2017 Tertiary NOT GIVENUNK Grecia Insurance:SELF PAY [facility] Number: Effective Repository Date:2017-12-22 12/12/2017 Tanisha L Primary Tanisha L Peebles [id number] Insurance:MEDICARE YurickDOB: Community Roger PART A olicy [id number] [place] Number: Repository [id number]: [phone] [id number] [phone] () Date:2017-12-12 12/12/2017 Secondary Cristina A Peebles Insurance:WPS JOHN BeattyDOB: [facility] [id number] Hospital Number: Repository [id number] Date:9010-50-04LN [address] [address]NI: 12/12/2017 Tertiary NOT GIVENUNK Grecia Insurance:SELF PAY [facility] Hospital Number: Effective Repository Date:2017-12-12
== END ==
PROVIDERS: Family Provider Family Medicine; PCP Family Medicine; Referring Provider Anesthesiology Pain Medicine; Visit Provider Anesthesiology Pain Medicine
DX: F11.20 Opioid dependence, uncomplicated (principal)
CPT/HCPCS: 80307

== ENCOUNTER → 2018-12-17 13:34 | Outpatient (CLI) | payer MEDICARE, OTHER, SELFPAY ==
[2018-12-17 16:54] LABS: AST(SGOT) 16 U/L (15-37); Alanine Aminotransfer ALT/SGPT 21 U/L (13-56); Albumin, Serum 3.4 g/dL (3.2-5.0); Alkaline Phosphatase 66 U/L (45-117); Anion Gap 9 (5-15); BUN 18 mg/dL (7-18); BUN/Creat Ratio 18.1 RATIO (10-20); Bilirubin, Direct 0.15 mg/dL (0.00-0.30); Calcium,Total 8.8 mg/dL (8.5-10.1); Chloride 106 mmol/L (98-107); Cholesterol 158 mg/dL (200); Creatinine, Serum 0.99 mg/dL (0.55-1.02); EST Glomerular Filtration Rate 58 mL/min (>60); Est Glom Filt Rate - Afr Amer 71 mL/min (>60); Globulin 2.8 g/dL (2.2-4.2); Glucose 135 mg/dL (74-106); High Density Lipoprotein 57 mg/dL; Potassium 4.5 mmol/L (3.5-5.1); Protein, Total 6.2 g/dL (6.4-8.2); Sodium Level 141 mmol/L (136-145); Thyroid Stim Hormone (TSH) 1.51 uIU/mL (0.358-3.74); Triglycerides 117 mg/dL; Very Low Density Lipoprotein 23 mg/dL (5-40)
[2018-12-17 20:31] LABS: Hemoglobin A1c 8.3 % (4.2-6.3)
== END ==
PROVIDERS: Family Provider Family Medicine; PCP Family Medicine; Visit Provider Family Medicine
DX: E11.69 Type 2 diabetes mellitus with other specified complication (principal)
CPT/HCPCS: 36415; 80048; 80061; 80076; 83036; 84443

== ENCOUNTER → 2018-12-18 14:49 | Outpatient (CLI) | payer MEDICARE, OTHER, SELFPAY ==
[2018-12-18 17:22] LABS: Absolute Lymphocyte Count 1.05 X10^3/ul (0.83-4.51); Absolute Neutrophil Count 4.7 X10^3/uL (2.0-7.7); Basophil# 0.08 X10^3/uL; Basophil% 1.2 % (0-1); Eosinophil# 0.43 X10^3/uL; Eosinophils% 6.4 % (0-5); Hematocrit 35.1 % (37-47); Hemoglobin 11.2 g/dl (12.0-15.0); Lymphocyte # 1.05 X10^3/ul (4.0); Lymphocyte % 15.6 % (19-41); Mean Corp Hgb Conc 31.9 g/gl (32-36); Mean Corpuscular Hgb 27.1 pg (27.0-32.0); Mean Platelet Vol. 10.7 fl (6.2-12.0); Monocyte# 0.48 X10^3/uL; Monocyte% 7.1 % (0-10); Neutrophil # 4.67 X10^3/uL (2.7-7.7); Neutrophil % 69.4 % (47-70); Platelet Count 232 K/mm3 (150-450); RBC Distribution Width CV 12.7 % (11.6-14.6); RBC Distribution Width SD 39.1 fl (35.1-43.9); Red Blood Count 4.13 M/mm3 (4.2-5.4); White Blood Count 6.7 K/mm3 (4.4-11.0)
[2018-12-18 17:23] LABS: POSITIVE COUNT NO; POSITIVE DIFFERENTIAL NO; POSITIVE MORPHOLOGY NO
[2018-12-18 17:51] LABS: ALB/GLOB Ratio 1.2 RATIO (0.9-2.4); AST(SGOT) 15 U/L (15-37); Alanine Aminotransfer ALT/SGPT 21 U/L (13-56); Albumin, Serum 3.4 g/dL (3.2-5.0); Alkaline Phosphatase 73 U/L (45-117); Anion Gap 11 (5-15); BUN 15 mg/dL (7-18); BUN/Creat Ratio 13.6 RATIO (10-20); Calcium,Total 8.8 mg/dL (8.5-10.1); Chloride 105 mmol/L (98-107); EST Glomerular Filtration Rate 52 mL/min (>60); Est Glom Filt Rate - Afr Amer 63 mL/min (>60); Globulin 2.8 g/dL (2.2-4.2); Glucose 225 mg/dL (74-106); Potassium 4.4 mmol/L (3.5-5.1); Protein, Total 6.2 g/dL (6.4-8.2); Sodium Level 141 mmol/L (136-145)
== END ==
PROVIDERS: Internal Medicine Rheumatology; Family Provider Family Medicine; PCP Family Medicine; Visit Provider Family Medicine
DX: L40.59 Other psoriatic arthropathy (principal); M79.7 Fibromyalgia; G56.01 Carpal tunnel syndrome, right upper limb; M15.9 Polyosteoarthritis, unspecified; K21.0 Gastro-esophageal reflux disease with esophagitis; M47.892 Other spondylosis, cervical region; E11.9 Type 2 diabetes mellitus without complications; I10 Essential (primary) hypertension; E78.5 Hyperlipidemia, unspecified; E03.9 Hypothyroidism, unspecified; H40.9 Unspecified glaucoma; J45.909 Unspecified asthma, uncomplicated; G47.33 Obstructive sleep apnea (adult) (pediatric); I89.0 Lymphedema, not elsewhere classified; L71.9 Rosacea, unspecified; M65.842 Other synovitis and tenosynovitis, left hand; M65.841 Other synovitis and tenosynovitis, right hand
CPT/HCPCS: 36415; 80053; 82043; 82570; 85025

== ENCOUNTER → 2018-12-29 13:31 | Outpatient (CLI) | payer MEDICARE, OTHER, SELFPAY ==
--- NOTE | 2018-12-29 13:35 | RAD_ITS ---
STUDY: X-RAY - RIGHT KNEE REASON FOR EXAM: Female, 73 years old. Chronic pain. TECHNIQUE: 2 view(s) of the knee. COMPARISON: December 27, 2016 FINDINGS: Normal visualized distal femur. Normal visualized proximal tibia and fibula. Normal proximal tibiofibular articulation. There is moderate degenerative arthrosis of the medial femorotibial compartment with moderate joint space narrowing. There is mild degenerative arthrosis of the lateral femorotibial compartment. There is moderate degenerative arthrosis of the patellofemoral articulation. The soft tissue structures are unremarkable. RAD/Knee 1 or 2 Views IMPRESSION: Moderate degenerative changes. Electronically Signed: Marimar Heard MD at 14:32 EST Tel , Service support ,
--- NOTE | 2018-12-29 13:35 | RAD_ITS ---
STUDY: X-RAY - LEFT KNEE REASON FOR EXAM: Female, 73 years old. Chronic pain. TECHNIQUE: 2 view(s) of the knee. COMPARISON: December 27, 2016 FINDINGS: Normal visualized distal femur. Normal visualized proximal tibia and fibula. Normal proximal tibiofibular articulation. There is moderate degenerative arthrosis of the medial femorotibial compartment with moderate joint space narrowing. Normal lateral femorotibial compartment. There is moderate degenerative arthrosis of the patellofemoral articulation. The soft tissue structures are unremarkable. RAD/Knee 1 or 2 Views IMPRESSION: Moderate degenerative changes. Electronically Signed: Marimar Heard MD at 14:42 EST Tel , Service support ,
== END ==
PROVIDERS: Family Provider Family Medicine; PCP Family Medicine; Referring Provider Anesthesiology Pain Medicine; Visit Provider Anesthesiology Pain Medicine
DX: M25.561 Pain in right knee (principal); M25.562 Pain in left knee; G89.29 Other chronic pain
CPT/HCPCS: 73560

== ENCOUNTER → 2019-04-26 | Outpatient (CLI) | payer MEDICARE, OTHER, SELFPAY ==
[2019-04-26 17:59] LABS: Anion Gap 8 (5-15); BUN 17 mg/dL (7-18); BUN/Creat Ratio 16.5 RATIO (10-20); Calcium,Total 9.1 mg/dL (8.5-10.1); Chloride 104 mmol/L (98-107); Creatinine, Serum 1.03 mg/dL (0.55-1.02); EST Glomerular Filtration Rate 56 mL/min (>60); Est Glom Filt Rate - Afr Amer 68 mL/min (>60); Glucose 169 mg/dL (74-106); Potassium 4.4 mmol/L (3.5-5.1); Sodium Level 138 mmol/L (136-145)
[2019-04-27 08:42] LABS: Absolute Lymphocyte Count 1.24 X10^3/ul (0.83-4.51); Absolute Neutrophil Count 5.2 X10^3/uL (2.0-7.7); Basophil% 1.4 % (0-1); Eosinophil# 0.37 X10^3/uL; Hematocrit 34.8 % (37-47); Hemoglobin 11.1 g/dl (12.0-15.0); Lymphocyte # 1.24 X10^3/ul (4.0); Lymphocyte % 16.8 % (19-41); Mean Corp Hgb Conc 31.9 g/gl (32-36); Mean Corpuscular Hgb 27.3 pg (27.0-32.0); Mean Corpuscular Volume 85.5 fL (81-99); Mean Platelet Vol. 10.6 fl (6.2-12.0); Monocyte# 0.47 X10^3/uL; Monocyte% 6.4 % (0-10); Neutrophil # 5.19 X10^3/uL (2.7-7.7); Neutrophil % 70.1 % (47-70); POSITIVE COUNT NO; POSITIVE DIFFERENTIAL NO; POSITIVE MORPHOLOGY NO; Platelet Count 263 K/mm3 (150-450); RBC Distribution Width CV 12.9 % (11.6-14.6); RBC Distribution Width SD 40.2 fl (35.1-43.9); Red Blood Count 4.07 M/mm3 (4.2-5.4); White Blood Count 7.4 K/mm3 (4.4-11.0)
[2019-04-27 08:56] LABS: Thyroid Stim Hormone (TSH) 0.26 uIU/mL (0.358-3.74)
[2019-04-27 09:06] LABS: Hemoglobin A1c 7.5 % (4.2-6.3)
== END | disposition home or self-care (01) ==
LOC: MFPLAB 15:57
PROVIDERS: Family Provider Family Medicine; PCP Family Medicine; Referring Provider Family Medicine; Visit Provider Family Medicine
DX: E11.69 Type 2 diabetes mellitus with other specified complication (principal); E11.65 Type 2 diabetes mellitus with hyperglycemia; E03.9 Hypothyroidism, unspecified; I10 Essential (primary) hypertension
CPT/HCPCS: 36415; 80048; 83036; 84443; 85025

== ENCOUNTER → 2019-05-17 | Outpatient (CLI) | payer MEDICARE, OTHER, SELFPAY ==
--- NOTE | 2019-05-17 15:32 | RAD_ITS ---
STUDY: X-RAY - RIGHT RADIUS AND ULNA REASON FOR EXAM: Female, 73 years old. Right wrist and forearm pain. TECHNIQUE: 2 view(s) of the forearm. COMPARISON: None. FINDINGS: Chondrocalcinosis. Generalized osteopenia. Normal visualized radius. Normal visualized ulna. Incidental slight widening of the scapholunate articulation and arthrosis of the radiocarpal row and first CMC joint. RAD/Forearm 2 Views IMPRESSION: Osteopenia with osteoarthritic changes. No acute finding. Electronically Signed: Kelton Goldstein MD at 16:00 EDT , Service support ,
== END | disposition home or self-care (01) ==
LOC: MTLAB 15:28 → MTRAD 15:31
PROVIDERS: Family Provider Family Medicine; PCP Family Medicine; Referring Provider Family Medicine; Visit Provider Family Medicine
DX: M25.531 Pain in right wrist (principal)
CPT/HCPCS: 73090

== ENCOUNTER → 2019-06-07 | Outpatient (CLI) | payer MEDICARE, OTHER, SELFPAY ==
[2019-06-07 15:34] LABS: Absolute Neutrophil Count 4.6 X10^3/uL (2.0-7.7); Basophil# 0.08 X10^3/uL; Basophil% 1.2 % (0-1); Eosinophil# 0.42 X10^3/uL; Eosinophils% 6.3 % (0-5); Hematocrit 33.3 % (37-47); Hemoglobin 10.6 g/dL (12.0-15.0); Mean Corp Hgb Conc 31.8 g/dL (32-36); Mean Corpuscular Hgb 27.3 pg (27.0-32.0); Mean Corpuscular Volume 85.8 fL (81-99); Mean Platelet Vol. 10.8 fl (6.2-12.0); Monocyte# 0.54 X10^3/uL; Monocyte% 8.1 % (0-10); NRBC Flagged by Analyzer 0 % (0-5); Neutrophil # 4.59 X10^3/uL (2.7-7.7); Neutrophil % 69.1 % (47-70); Platelet Count 213 K/mm3 (150-450); RBC Distribution Width CV 12.9 % (11.6-14.6); RBC Distribution Width SD 39.8 fl (35.1-43.9); Red Blood Count 3.88 M/mm3 (4.2-5.4); White Blood Count 6.7 K/mm3 (4.4-11.0)
[2019-06-07 16:26] LABS: ALB/GLOB Ratio 1.1 RATIO (0.9-2.4); AST(SGOT) 17 U/L (15-37); Alanine Aminotransfer ALT/SGPT 20 U/L (13-56); Alkaline Phosphatase 69 U/L (45-117); Anion Gap 9 (5-15); BUN 17 mg/dL (7-18); Calcium,Total 8.8 mg/dL (8.5-10.1); Chloride 108 mmol/L (98-107); Creatinine, Serum 1.06 mg/dL (0.55-1.02); EST Glomerular Filtration Rate 54 mL/min (>60); Est Glom Filt Rate - Afr Amer 65 mL/min (>60); Globulin 2.8 g/dL (2.2-4.2); Glucose 172 mg/dL (74-106); Potassium 4.3 mmol/L (3.5-5.1); Protein, Total 5.8 g/dL (6.4-8.2); Sodium Level 143 mmol/L (136-145)
== END | disposition home or self-care (01) ==
LOC: MFPLAB 14:24
PROVIDERS: Family Provider Family Medicine; PCP Family Medicine; Referring Provider Family Medicine; Visit Provider Internal Medicine Rheumatology
DX: L40.59 Other psoriatic arthropathy (principal); M79.7 Fibromyalgia; L40.8 Other psoriasis; G56.01 Carpal tunnel syndrome, right upper limb; M15.9 Polyosteoarthritis, unspecified; K21.0 Gastro-esophageal reflux disease with esophagitis; M47.892 Other spondylosis, cervical region
CPT/HCPCS: 36415; 80053; 85025

== ENCOUNTER → 2019-11-17 11:56 | Outpatient (CLI) | payer MEDICARE, OTHER, SELFPAY ==
[2019-11-17 14:33] LABS: Anion Gap 6 (5-15); BUN 25 mg/dL (7-18); BUN/Creat Ratio 23.4 RATIO (10-20); Calcium,Total 8.7 mg/dL (8.5-10.1); Chloride 105 mmol/L (98-107); Creatinine, Serum 1.07 mg/dL (0.55-1.02); EST Glomerular Filtration Rate 53 mL/min (>60); Est Glom Filt Rate - Afr Amer 65 mL/min (>60); Glucose 114 mg/dL (74-106); Sodium Level 138 mmol/L (136-145); T4 Total, Thyroxin 12.5 ug/dL (4.8-13.9); Thyroid Stim Hormone (TSH) 0.82 uIU/mL (0.358-3.74)
== END ==
PROVIDERS: Family Provider Family Medicine; PCP Family Medicine; Referring Provider Family Medicine; Visit Provider Family Medicine
DX: E03.9 Hypothyroidism, unspecified (principal); I10 Essential (primary) hypertension
CPT/HCPCS: 36415; 80048; 84436; 84443

== ENCOUNTER 2019-12-08 14:35 | Emergency (ER) | payer MEDICARE, OTHER, SELFPAY ==
[2019-12-08 14:37] VITALS: BP 141/75; PULSE 76; RESP 16; TEMP 36.8; O2SAT 97; BMI 49.0
--- NOTE | 2019-12-08 14:58 | ED.DCSUM_ITS ---
History of Present Illness Chief Complaint: Cellulitis Detail of Chief Complaint: Redness anterior right and left leg Onset: Days - Onset 3 days ago Context: Sudden Onset Timing: Continuous Quality: Redness anterior right leg and redness anterior left leg and posterior Location: Right and left leg Current Severity: Mild Maximum Severity: Mild Worsened by: Nothing Relieved by: Nothing Associated Symptoms: No constitutional symptoms or associated symptoms Narrative: Patient is a 74-year-old woman with multiple medical problems who presents because of cellulitis right and left leg. She completed a course of antibiotics. She initially was on azithromycin. She then was prescribed Bactrim. She has anaphylactic reaction to penicillin. She states her legs have been red for years. No redness is greater right leg. She denies fever, chills night sweats. She denies dysuria, frequency, urgency or hematuria. She denies polyuria, polydipsia or nocturia. She states her blood sugar has not been elevated. There is no history of trauma. She also noted discoloration dorsal mid right forearm. The area is purple and pruritic. She states she is rubbed it. She states she is not on an antiplatelet or anticoagulant. Prior similar symptoms: Yes Recent Illness/Hospitalization: Yes - Past Medical History (1) History of type 1 diabetes mellitus Status: Acute (2) History of hypothyroidism Status: Acute (3) History of diabetic neuropathy Status: Acute (4) History of asthma Status: Acute Past Medical History - Allergies and Home Meds Allergies/Adverse Reactions: Allergies telithromycin [From Ketek] Allergy (Severe, Verified 12/08/19 14:39) Nausea/Vom/Diarrhea Penicillins [PCN] Allergy (Verified 12/08/19 14:39) Swelling Primary Care Physician: Coral Lima MD [Primary Care Provider] - Prior records reviewed: Yes Surgical History: noncontributory Lives: Spouse/ Significant Other Smoking Status: Former smoker Alcohol: None Drugs: None Review of Systems General: Denies: Chills, Fever, Sweats Eyes: Denies: Visual changes - bilaterally, Blurred Vision - bilaterally, Dipl opia Cardiovascular: Denies: Chest pain, Palpitations Respiratory: Denies: Dyspnea, Cough, Dyspnea on exertion Gastrointestinal: Denies: Abdominal pain, Nausea, Vomiting, Diarrhea Musculoskeletal: Reports: Swelling - Lean of her right and left lower extremity are chronic. Denies: Myalgias, Arthralgias, Neck pain, Back pain, Extremity Pain Skin: Reports: Rash. Denies: Abscess, Abrasions, Wounds Neurological: Denies: Headache, Weakness, Parasthesia Hematologic: Denies: Easy bruising, Easy bleeding Physical Exam Vital Signs/Narrative: Vital Signs Temp Pulse Resp BP Pulse Ox 12/08/19 14:37 98.3 F 76 16 141/75 H 97 Inital Vital Signs reviewed: Yes General: Well nourished, Well developed, Obese, No Acute Distress Head: Normocephalic, Atraumatic Eyes: Perrl, EOMI Neck: Supple, Nontender Cardiovascular: Regular rate, Regular rhythm, No murmurs, Normal S1, Normal S2 Respiratory: No distress, CTA bilaterally, Chest nontender Abdomen: Soft, Nontender, Nondistended, Normal bowel sounds Extremities: Nontender, Edema - There is pitting edema bilaterally.. Negative for: No edema Skin: Normal color, Rash - There is evidence of venous stasis dermatitis bilaterally. The anterior left leg is redder with warmth. There is no induration. There is no lymphangitis. There is no popliteal or inguinal lymphadenopathy.. Negative for: Cyanosis, Diaphoresis, Jaundice, No Trauma Diagnostic/Tx/Re-eval Laboratory Results 12/08/19 12/08/19 15:15 15:15 WBC 8.1 RBC 3.47 L Hgb 9.5 L Hct 30.3 L MCV 87.3 MCH 27.4 MCHC 31.4 L RDW Std Deviation 42.6 RDW Coeff of Za 13.5 Plt Count 187 MPV 10.0 Immature Gran % (Auto) 0.600 Neut % (Auto) 61.2 Lymph % (Auto) 14.6 L [place] % (Auto) 7.5 Eos % (Auto) 15.0 H Baso % (Auto) 1.1 H Absolute Neuts (auto) 5.0 Absolute Lymphs (auto) 1.19 Nucleated RBC % 0 Sodium 139 Potassium 4.5 Chloride 108 H Carbon Dioxide 27.0 Anion Gap 4 L BUN 23 H Creatinine 1.12 H Estim Creat Clear Calc 37.01 Est GFR (MDRD) Af Amer 61 Est GFR (MDRD) Non-Af 51 L BUN/Creatinine Ratio 20.5 H Glucose 148 H Calcium 9.3 White count is normal. Hemoglobin has slowly declined over the past 12 to 24 months. Renal function is unchanged. Blood sugar is slightly elevated. Since patient has no sirs criteria plan is to discharge to home with clindamycin. She was instructed to follow-up with Dr. Carvajal who she is seen for the anemia and Dr. Lima for wound check in 3 days - Medical Decision Making Since patient is diabetic basic metabolic panel was obtained to assess renal function and glucose. CBC was obtained to assess white count. Patient's vitals are unremarkable. She did does not have a fever nor is she tachycardic or tachypneic. Because she has an anaphylactic reaction to penicillin we will tessy t with clindamycin for strep and staph coverage. Scription for clindamycin based on patient's allergies and concern for cellulitis and follow-up with Dr. Rolo Carvajal ED Disposition - Plan for ED Patient: Disposition: Home or Assisted Living Diagnosis: Cellulitis of leg without foot, left, Anemia Instructions: Cellulitis, ANEMIA, Type Not Specified (Adult) Prescriptions: Clindamycin HCl [Cleocin] 300 mg PO Q6H #28 cap Prescription Printed Referrals: Coral Lima MD [Primary Care Provider] - 2 Days for wound check Rolo Carvajal MD [NON-STAFF] - 1-2 Weeks
[2019-12-08 15:23] LABS: Absolute Lymphocyte Count 1.19 X10^3/uL (0.83-4.51); Basophil# 0.09 X10^3/uL; Basophil% 1.1 % (0-1); Eosinophil# 1.22 X10^3/uL; Hematocrit 30.3 % (37-47); Hemoglobin 9.5 g/dL (12.0-15.0); Lymphocyte # 1.19 X10^3/ul (4.0); Lymphocyte % 14.6 % (19-41); Mean Corp Hgb Conc 31.4 g/dL (32-36); Mean Corpuscular Hgb 27.4 pg (27.0-32.0); Mean Corpuscular Volume 87.3 fL (81-99); Monocyte# 0.61 X10^3/uL; Monocyte% 7.5 % (0-10); NRBC Flagged by Analyzer 0 % (0-5); Neutrophil # 4.98 X10^3/uL (2.7-7.7); Neutrophil % 61.2 % (47-70); Platelet Count 187 K/mm3 (150-450); RBC Distribution Width CV 13.5 % (11.6-14.6); RBC Distribution Width SD 42.6 fl (35.1-43.9); Red Blood Count 3.47 M/mm3 (4.2-5.4); White Blood Count 8.1 K/mm3 (4.4-11.0)
[2019-12-08 15:38] LABS: Anion Gap 4 (5-15); BUN 23 mg/dL (7-18); BUN/Creat Ratio 20.5 RATIO (10-20); Calcium,Total 9.3 mg/dL (8.5-10.1); Chloride 108 mmol/L (98-107); Creatinine, Serum 1.12 mg/dL (0.55-1.02); EST Glomerular Filtration Rate 51 mL/min (>60); Est Glom Filt Rate - Afr Amer 61 mL/min (>60); Estimated Creatinine Clearance 37.01 ml/min; Glucose 148 mg/dL (74-106); Potassium 4.5 mmol/L (3.5-5.1); Sodium Level 139 mmol/L (136-145)
== END 2019-12-08 16:57 | disposition home or self-care (01) ==
PROVIDERS: Emergency Provider Emergency Medicine; PCP Family Medicine
DX: L03.116 Cellulitis of left lower limb (principal); D64.9 Anemia, unspecified; E66.9 Obesity, unspecified; E03.9 Hypothyroidism, unspecified; J45.909 Unspecified asthma, uncomplicated; E10.40 Type 1 diabetes mellitus with diabetic neuropathy, unspecified; Z79.4 Long term (current) use of insulin; Z79.899 Other long term (current) drug therapy; Z87.891 Personal history of nicotine dependence
CPT/HCPCS: 80048; 85025; 96365; 96366; 99282

== ENCOUNTER → 2019-12-16 14:53 | Outpatient (CLI) | payer MEDICARE, OTHER, SELFPAY ==
[2019-12-08 14:37] VITALS: BMI 49.0
--- NOTE | 2019-12-16 14:57 | RAD_ITS ---
STUDY: X-RAY - LUMBAR SPINE REASON FOR EXAM: Female, 74 years old. Radiating low back pain TECHNIQUE: 3 view(s) of the lumbar spine were obtained. COMPARISON: 03/11/2018 FINDINGS: Normal lumbar lordosis. There is no substantial scoliosis. There is a normal alignment of the vertebrae. There is multilevel endplate spondylosis of the lumbar vertebrae. There is multi-level degenerative disc disease with multi-level disc space narrowing. There is no demonstrated fracture. There is atherosclerotic calcification of the abdominal aorta without a demonstrated aneurysm. RAD/Lumbar Spine 2 or 3 Views IMPRESSION: Degenerative changes of the spine, as detailed above. Electronically Signed: Bobby Toth MD at 13:46 EST , Service support ,
== END ==
PROVIDERS: PCP Family Medicine; Referring Provider Anesthesiology Pain Medicine; Visit Provider Anesthesiology Pain Medicine
DX: M54.9 Dorsalgia, unspecified (principal)
CPT/HCPCS: 72100

== ENCOUNTER → 2019-12-16 16:28 | Outpatient (CLI) | payer MEDICARE, OTHER, SELFPAY ==
[2019-12-08 14:37] VITALS: BMI 49.0
[2019-12-16 18:25] LABS: Absolute Lymphocyte Count 1.32 X10^3/uL (0.83-4.51); Absolute Neutrophil Count 5.1 X10^3/uL (2.0-7.7); Basophil# 0.08 X10^3/uL; Basophil% 0.9 % (0-1); Eosinophils% 18.2 % (0-5); Hematocrit 30.9 % (37-47); Hemoglobin 9.7 g/dL (12.0-15.0); Lymphocyte # 1.32 X10^3/ul (4.0); Mean Corp Hgb Conc 31.4 g/dL (32-36); Mean Corpuscular Hgb 27.6 pg (27.0-32.0); Mean Platelet Vol. 10.7 fl (6.2-12.0); Monocyte# 0.66 X10^3/uL; Monocyte% 7.5 % (0-10); NRBC Flagged by Analyzer 0 % (0-5); Neutrophil # 5.08 X10^3/uL (2.7-7.7); Neutrophil % 57.7 % (47-70); Platelet Count 243 K/mm3 (150-450); RBC Distribution Width CV 14.6 % (11.6-14.6); RBC Distribution Width SD 46.5 fl (35.1-43.9); Red Blood Count 3.51 M/mm3 (4.2-5.4); White Blood Count 8.8 K/mm3 (4.4-11.0)
[2019-12-16 19:12] LABS: ALB/GLOB Ratio 0.9 RATIO (0.9-2.4); AST(SGOT) 13 U/L (15-37); Alanine Aminotransfer ALT/SGPT 22 U/L (13-56); Albumin, Serum 3.2 g/dL (3.2-5.0); Alkaline Phosphatase 70 U/L (45-117); Anion Gap 4 (5-15); BUN 19 mg/dL (7-18); BUN/Creat Ratio 17.6 RATIO (10-20); Calcium,Total 9.4 mg/dL (8.5-10.1); Chloride 107 mmol/L (98-107); Creatinine, Serum 1.08 mg/dL (0.55-1.02); EST Glomerular Filtration Rate 53 mL/min (>60); Est Glom Filt Rate - Afr Amer 64 mL/min (>60); Globulin 3.6 g/dL (2.2-4.2); Glucose 99 mg/dL (74-106); Potassium 4.4 mmol/L (3.5-5.1); Protein, Total 6.8 g/dL (6.4-8.2); Sodium Level 138 mmol/L (136-145)
== END ==
PROVIDERS: PCP Family Medicine; Referring Provider Family Medicine; Visit Provider Internal Medicine Rheumatology
DX: L40.59 Other psoriatic arthropathy (principal); M79.7 Fibromyalgia; L40.8 Other psoriasis; G56.01 Carpal tunnel syndrome, right upper limb; M15.9 Polyosteoarthritis, unspecified; K21.0 Gastro-esophageal reflux disease with esophagitis; M47.892 Other spondylosis, cervical region; M54.9 Dorsalgia, unspecified
CPT/HCPCS: 36415; 72100; 80053; 85025

== ENCOUNTER → 2020-06-02 15:47 | Outpatient (CLI) | payer MEDICARE, OTHER, SELFPAY ==
--- NOTE | 2020-06-02 16:05 | RAD_ITS ---
STUDY: X-RAY - ABDOMEN/PELVIS REASON FOR EXAM: Female, 74 years old. Generalized abdominal pain. TECHNIQUE: Two AP supine views of the abdomen and pelvis. COMPARISON: CT of the abdomen and pelvis, 03-20-16. FINDINGS: Normal visualized lung bases. There is a nonspecific bowel gas pattern. Gas and feces are seen in nondistended colon. There is mildly distended small bowel loops in left upper quadrant. There is no demonstrated free abdominal air. The visualized liver, spleen and kidneys are grossly normal in size and morphology. Normal soft tissue structures. There are diffuse degenerative changes of the visualized lumbar spine. RAD/Abdomen Single View IMPRESSION: 1. Nonspecific bowel gas pattern. Question localized left upper quadrant ileus. Electronically Signed: Gaston Portillo DO at 17:45 EDT Tel [phone], Service support ,
[2020-06-02 17:17] LABS: Absolute Lymphocyte Count 1.16 X10^3/uL (0.83-4.51); Basophil# 0.09 X10^3/uL; Basophil% 1.3 % (0-1); Eosinophil# 0.31 X10^3/uL; Eosinophils% 4.3 % (0-5); Hematocrit 36.3 % (37-47); Hemoglobin 11.6 g/dL (12.0-15.0); Lymphocyte # 1.16 X10^3/ul (4.0); Lymphocyte % 16.2 % (19-41); Mean Corpuscular Hgb 29.5 pg (27.0-32.0); Mean Corpuscular Volume 92.4 fL (81-99); Mean Platelet Vol. 10.5 fl (6.2-12.0); Monocyte% 8.4 % (0-10); NRBC Flagged by Analyzer 0 % (0-5); Neutrophil # 4.98 X10^3/uL (2.7-7.7); Neutrophil % 69.4 % (47-70); Platelet Count 241 K/mm3 (150-450); RBC Distribution Width CV 12.2 % (11.6-14.6); RBC Distribution Width SD 40.9 fl (35.1-43.9); Red Blood Count 3.93 M/mm3 (4.2-5.4); White Blood Count 7.2 K/mm3 (4.4-11.0)
[2020-06-02 17:45] LABS: Hemoglobin A1c 7.4 % (3.8-5.6)
[2020-06-02 17:51] LABS: ALB/GLOB Ratio 0.9 RATIO (0.9-2.4); AST(SGOT) 14 U/L (15-37); Alanine Aminotransfer ALT/SGPT 20 U/L (13-56); Albumin, Serum 3.3 g/dL (3.2-5.0); Alkaline Phosphatase 68 U/L (45-117); Anion Gap 3 (5-15); BUN 22 mg/dL (7-18); BUN/Creat Ratio 20.2 RATIO (10-20); Calcium,Total 9.3 mg/dL (8.5-10.1); Chloride 105 mmol/L (98-107); Creatinine, Serum 1.09 mg/dL (0.55-1.02); EST Glomerular Filtration Rate 52 mL/min (>60); Est Glom Filt Rate - Afr Amer 63 mL/min (>60); Globulin 3.6 g/dL (2.2-4.2); Glucose 137 mg/dL (74-106); Potassium 4.7 mmol/L (3.5-5.1); Protein, Total 6.9 g/dL (6.4-8.2); Sodium Level 137 mmol/L (136-145); T4 Total, Thyroxin 12.1 ug/dL (4.8-13.9); Thyroid Stim Hormone (TSH) 0.51 uIU/mL (0.358-3.74)
== END ==
PROVIDERS: PCP Family Medicine; Referring Provider Registered Nurse; Visit Provider Registered Nurse
DX: R10.84 Generalized abdominal pain (principal); E03.9 Hypothyroidism, unspecified; E11.9 Type 2 diabetes mellitus without complications; D64.9 Anemia, unspecified; K58.9 Irritable bowel syndrome, unspecified
CPT/HCPCS: 36415; 74018; 80053; 83036; 84436; 84443; 85025

== ENCOUNTER → 2020-06-16 14:41 | Outpatient (CLI) | payer MEDICARE, OTHER, SELFPAY ==
[2020-06-16 17:19] LABS: Absolute Lymphocyte Count 1.16 X10^3/uL (0.83-4.51); Absolute Neutrophil Count 4.9 X10^3/uL (2.0-7.7); Basophil# 0.08 X10^3/uL; Basophil% 1.1 % (0-1); Eosinophil# 0.47 X10^3/uL; Eosinophils% 6.6 % (0-5); Hemoglobin 11.8 g/dL (12.0-15.0); Lymphocyte # 1.16 X10^3/ul (4.0); Lymphocyte % 16.2 % (19-41); Mean Corp Hgb Conc 32.8 g/dL (32-36); Mean Corpuscular Hgb 29.6 pg (27.0-32.0); Mean Corpuscular Volume 90.2 fL (81-99); Mean Platelet Vol. 10.8 fl (6.2-12.0); NRBC Flagged by Analyzer 0 % (0-5); Neutrophil % 68.7 % (47-70); Platelet Count 249 K/mm3 (150-450); RBC Distribution Width CV 12.1 % (11.6-14.6); RBC Distribution Width SD 40.3 fl (35.1-43.9); Red Blood Count 3.99 M/mm3 (4.2-5.4); White Blood Count 7.1 K/mm3 (4.4-11.0)
[2020-06-16 17:27] LABS: ALB/GLOB Ratio 0.9 RATIO (0.9-2.4); AST(SGOT) 19 U/L (15-37); Alanine Aminotransfer ALT/SGPT 25 U/L (13-56); Albumin, Serum 3.3 g/dL (3.2-5.0); Alkaline Phosphatase 69 U/L (45-117); Anion Gap 7 (5-15); BUN 22 mg/dL (7-18); BUN/Creat Ratio 18.3 RATIO (10-20); Calcium,Total 8.9 mg/dL (8.5-10.1); Chloride 104 mmol/L (98-107); EST Glomerular Filtration Rate 47 mL/min (>60); Est Glom Filt Rate - Afr Amer 57 mL/min (>60); Globulin 3.5 g/dL (2.2-4.2); Glucose 187 mg/dL (74-106); Potassium 4.5 mmol/L (3.5-5.1); Protein, Total 6.8 g/dL (6.4-8.2); Sodium Level 138 mmol/L (136-145)
== END ==
PROVIDERS: PCP Family Medicine; Referring Provider Family Medicine; Visit Provider Internal Medicine Rheumatology
DX: L40.59 Other psoriatic arthropathy (principal); M79.7 Fibromyalgia; L40.8 Other psoriasis; G56.01 Carpal tunnel syndrome, right upper limb; M15.9 Polyosteoarthritis, unspecified; K21.0 Gastro-esophageal reflux disease with esophagitis; M47.892 Other spondylosis, cervical region; E11.9 Type 2 diabetes mellitus without complications; I10 Essential (primary) hypertension; E78.5 Hyperlipidemia, unspecified; E03.9 Hypothyroidism, unspecified; H40.9 Unspecified glaucoma; J45.909 Unspecified asthma, uncomplicated; G47.33 Obstructive sleep apnea (adult) (pediatric); I89.0 Lymphedema, not elsewhere classified; L71.9 Rosacea, unspecified
CPT/HCPCS: 36415; 80053; 85025

== ENCOUNTER → 2020-06-28 16:36 | Outpatient (CLI) | payer MEDICARE, OTHER, SELFPAY ==
[2020-06-26 14:11] VITALS: BMI 49.0
--- NOTE | 2020-06-28 16:37 | CT_ITS ---
STUDY: CT ABDOMEN AND PELVIS WITHOUT CONTRAST REASON FOR EXAM: Female, 74 years old. UPPER ABDOMINAL PAIN. PRIOR GB,TOTAL HYSTERECTOMY, APPENDECTOMY RADIATION DOSAGE (If Supplied By Facility): CTDIvol = ( 31.78 ) mGy, DLP = ( 1579.83 ) mGycm TECHNIQUE: Transaxial images were obtained from the dome of the diaphragm to the symphysis pubis with oral contrast, and without intravenous contrast. Sagittal and coronal images were reconstructed. Individualized dose optimization techniques were used for this CT. COMPARISON: 03/20/2016 FINDINGS: There are chronic interstitial fibrotic changes of the lung bases. The visualized portions of the heart are within normal limits. Normal liver. There is non-visualization of the gallbladder, which may be secondary to either contraction or a prior cholecystectomy. Normal spleen. Normal pancreas. There is a stable 1.7 cm smooth, low attenuation left adrenal mass, consistent with an adrenal adenoma. Normal right adrenal gland. Normal right kidney. When compared to the previous study, there is a new isodense to renal cortex lesion in the upper pole measuring 4.1 x 3.7 cm. This needs further evaluation. It could be with ultrasound, contrasted CT or MRI. There is no perinephric inflammatory stranding. Persistent filling defect noted within the proximal stomach. It may represent ingested food but it could represent a polyp. Normal small intestine. Normal colon. There is non-visualization of the appendix. There is diffuse atherosclerotic calcification of the abdominal aorta, without a demonstrated aneurysm. Normal inferior vena cava. Normal retroperitoneum. Normal urinary bladder. Normal visualized adnexa. There is a small umbilical hernia containing fat. There are diffuse degenerative changes of the visualized lumbar spine, and pelvis. CT/Abdomen/Pel W ORAL Cont Only IMPRESSION: When compared to the previous study, there is now a well-defined isodense to cortex mass in the upper pole of the right kidney measuring 4.1 x 3.7 cm. Further evaluation with contrasted study or ultrasound recommended Stable left adrenal adenoma No free intraperitoneal fluid, air, or suspicious adenopathy Persistent filling defect in the proximal stomach likely represents an ingested food but a polyp cannot be excluded Degenerative bony changes Electronically Signed: Bobby Toth MD at 17:33 EDT , Service support ,
== END ==
PROVIDERS: PCP Family Medicine; Referring Provider Surgery; Visit Provider Surgery
DX: R10.9 Unspecified abdominal pain (principal)
CPT/HCPCS: 74176

== ENCOUNTER → 2020-07-04 11:00 | Outpatient (CLI) | payer MEDICARE, OTHER, SELFPAY ==
[2020-06-26 14:11] VITALS: BMI 49.0
--- NOTE | 2020-07-04 11:00 | US_ITS ---
STUDY: RENAL ULTRASOUND - COMPLETE REASON FOR EXAM: Female, 74 years old. Left upper pole mass on CT. TECHNIQUE: Ultrasound evaluation of the kidneys was performed with real-time and static ayala-scale imaging. COMPARISON: CT abdomen and pelvis June 28, 2020. CT abdomen and pelvis March 20, 2016. FINDINGS: RIGHT KIDNEY: Normal location of the right kidney, which is normal in size. The right kidney measures 11.6 x 6.3 x 5.4 cm. There is a normal cortex of the right kidney. The renal cortex measures 1.7 cm. There is no right renal mass or cyst. There are no right renal calculi. There is no right hydronephrosis. DISTAL RIGHT URETER: There is non-visualization of the distal right ureter. There is no demonstrated right ureterovesical junction calculus. There is a visualized right ureteral jet. LEFT KIDNEY: Normal location of the left kidney, which is normal in size. The left kidney measures 11.5 x 5.1 x 7.5 cm. There is a normal cortex of the left kidney. The renal cortex measures 2.8 cm. Superior pole simple cyst measuring 5.0 x 3.7 x 3.7 cm or spine abnormality on the recent CT. There are no left renal calculi. There is no left hydronephrosis. DISTAL LEFT URETER: There is non-visualization of the distal left ureter. There is no demonstrated left ureterovesical junction calculus. There is a visualized left ureteral jet. BLADDER: Prevoid bladder volume 105 mL. There is a normal wall thickness of the distended urinary bladder. There is no demonstrated mass within the urinary bladder. There are no demonstrated bladder calculi. US/Kidney and Bladder IMPRESSION: 5.0 cm simple cyst superior pole left kidney corresponding to the abnormality on the recent CT of the abdomen and pelvis. This cyst requires no further evaluation. Study is otherwise normal. Electronically Signed: Kory Bocanegra MD at 3:28 EDT , Service support ,
== END ==
PROVIDERS: PCP Family Medicine; Referring Provider Surgery; Visit Provider Surgery
DX: R93.429 Abnormal radiologic findings on diagnostic imaging of unspecified kidney (principal)
CPT/HCPCS: 76770

== ENCOUNTER 2020-07-14 07:57 | Day surgery (SDC) | payer MEDICARE, OTHER, SELFPAY ==
[2020-06-26 14:11] VITALS: BMI 49.0
[2020-07-14] VITALS (8 sets, daily range): BP systolic 139–161; BP diastolic 56–73; PULSE 63–72; RESP 16–18; TEMP 36.1–36.3; O2SAT 97–100; BMI 48.4
--- NOTE | 2020-07-14 08:22 | HP.PCM_ITS ---
Problem List (1) Abdominal pain Status: Acute History and Physical Date of Admission: 07/14/20 Intake Visit Reasons: CSCOPE/ EGD Chief Complaint: Abdominal pain/constipation/anemia Surgical Coordinator Required: No Accompanied by: Is patient in pain?: No Allergies telithromycin [From Ketek] Allergy (Severe, Verified 12/08/19 14:39) Nausea/Vom/Diarrhea escitalopram Allergy (Intermediate, Verified 06/26/20 13:54) heart races Penicillins [PCN] Allergy (Verified 12/08/19 14:39) Swelling Medications Apremilast [Otezla] 30 mg PO BID 02/05/18 [History Confirmed 06/26/20] Calcium Carbonate [Calcium] 600 mg PO DAILY 02/05/18 [History Confirmed 06/26/20] Cetirizine HCl [Zyrtec] 10 mg PO DAILY 02/05/18 [History Confirmed 06/26/20] Cranberry Fruit Extract [Cranberry] 500 mg PO DAILY 02/05/18 [History Confirmed 06/26/20] Gabapentin [Neurontin] 400 mg PO QHS 02/05/18 [History Confirmed 06/26/20] Insulin Glargine [Lantus (BKC)] 50 units SUBCUT DAILY 02/05/18 [History Confirmed 06/26/20] Levocetirizine Dihydrochloride [Xyzal] 5 mg PO DAILY 02/05/18 [History Confirmed 06/26/20] Levothyroxine Sodium [Synthroid] 200 mcg PO QHS 02/05/18 [History Confirmed 06/26/20] Mometasone/Formoterol [Dulera 200 Mcg/5 Mcg Inhaler] 2 puff IH DAILY 02/05/18 [History Confirmed 06/26/20] Montelukast [Singulair] 10 mg PO DAILY 02/05/18 [History Confirmed 06/26/20] Multivitamin with Iron [Multivitamins with Iron] 1 ea PO DAILY 02/05/18 [History Confirmed 06/26/20] Potassium Chloride [Klor-Con M20] 20 meq PO LUNCH 02/05/18 [History Confirmed 06/26/20] Pravastatin [Pravachol] 20 mg PO QHS 02/05/18 [History Confirmed 06/26/20] Sitagliptin Phosphate [Januvia] 100 mg PO DAILY 02/05/18 [History Confirmed 06/26/20] Ubidecarenone/Vitamin E Mixed [Gcs45-Gfn E 100 mg-10 Unit Sfg] 1 ea PO DAILY 02/05/18 [History Confirmed 06/26/20] Albuterol Sulfate [Proventil Hfa] 6.7 gm IH Q4H PRN PRN 12/08/19 [History Confirmed 06/26/20] Amlodipine Besylate/Benazepril [Amlodipine-Benazepril 5-20 mg] 1 tab PO DAILY 12/08/19 [History Confirmed 06/26/20] Carvedilol Phosphate [Carvedilol ER] 20 mg PO DAILY 12/08/19 [History Confirmed 06/26/20] Methocarbamol [Robaxin] 500 mg PO TID PRN 12/08/19 [History Confirmed 06/26/20] Oxycodone HCl/Acetaminophen [Oxycodone-Acetaminophen 5-325] 1 tab PO BID 12/08/19 [History Confirmed 06/26/20] Tolterodine Tartrate [Detrol LA] 1 tab PO DAILY 12/08/19 [History Confirmed 06/26/20] cholecalciferol (vitamin D3) 125 mcg (5,000 unit) capsule 125 mcg PO DAILY 06/26/20 [History Confirmed 06/26/20] ferrous sulfate 325 mg (65 mg iron) tablet 325 mg PO BID 06/26/20 [History Confirmed 06/26/20] furosemide 40 mg tablet 40 mg PO DAILY PRN 06/26/20 [History Confirmed 06/26/20] omeprazole 40 mg capsule,delayed release 40 mg PO DAILY 06/26/20 [History Confirmed 06/26/20] [facility] Medical History (Updated 06/26/20 @ 14:[address] Dieter Schwarz MD) Abdominal pain (Acute) History of type 1 diabetes mellitus (Acute) History of hypothyroidism (Acute) History of diabetic neuropathy (Acute) History of asthma (Acute) Abdominal pain (Acute) Anemia (Acute) Arthritis (Acute) Asthma (Acute) Cervical spondylosis (Acute) Constipation (Acute) Depression (Acute) Fibromyalgia (Acute) History of back problems (Acute) IBS (irritable bowel syndrome) (Acute) Lipodermatosclerosis (Acute) Nausea (Acute) Obesity (Acute) Psoriatic arthritis (Acute) Rosacea (Acute) SOB (shortness of breath) (Acute) Sleep apnea (Acute) Surgical History (Updated 06/26/20 @ 13:50 by Lou Mojica) History of cholecystectomy (Acute) History of hysterectomy (Acute) History of tubal ligation (Acute) history bilateral cataract surgery (Acute) Family History (Updated 06/26/20 @ 13:50 by Lou Mojica) Grandfather Arthritis Father Diabetes Grandmother Heart disease Hypertension Social History (Updated 06/26/20 @ 14:[address] Dieter Schwarz MD) Smoking Status: Never smoker alcohol intake: never substance use type: does not use HPI HPI HPI: EVERTON BEATTY, is a 74 F who presents to the office today for surgical consultation regarding nonspecific abdominal pain. Weight gain. Personal history of colon polyps. Postprandial nausea. Upper abdominal discomfort. She is referred by Josy Cotton CNP for surgical consultation and a written copy of my surgical consult will be returned with recommendations. A specific request has been made to proceed with combined upper and lower endoscopy. She notes of chronic dyspnea. She has trouble lying supine in fact is not able to. She uses a BiPAP mask. She complains of lower extremity swelling. She is on a diuretic. She also has been newly identified as having an anemia. As of June 16, 2020 her white blood cell count 7.1 with a hemoglobin 9.8 hematocrit 36 platelet count 249,000. BUN is 22 and creatinine 1.2. Glucose 187. Estimated GFR is 47. Liver function tests were normal. The patient states she does not understand why she is gaining weight. She claims that anything she eats causes nausea. She has had a remote cholecystectomy through a long oblique right subcostal incision. She denies fever or chills or sweats. She denies bright red blood per rectum or melena. She complains of bilateral subcostal tenderness to touch. HPI HPI HPI: EVERTON BEATTY, is a 74 F who presents to the office today for ROS General General: Yes weight change and fatigue; no appetite, colon cancer, breast cancer or weakness HEENT HEENT: Yes difficulty swallowing and eye surgery; no eye injury, swollen glands or hoarseness Endo Endocrine: Yes thyroid disease and diabetes mellitus; no thyroid cancer, Hair loss, heat intolerance or cold intolerance Skin Skin: Yes rash; no changing moles Breast Breast: No left breast lump, right breast lump, nipple discharge, breast pain, abnormal mammogram, abnormal US or breast enlargement Musc Musculoskeletal: Yes back problems and arthritis; no rheumatoid arthritis, gout or joint pain Cardio Cardiovascular: No murmur, pacemaker, heart disease, atrial fibrillation, high blood pressure, heart attack, heart stent, palpitations, shortness of breat with exertion or chest pain Psych Psychiatric: Yes depression; no anxiety or hearing voices Resp Respiratory: Yes shortness of breath, Yes sleep apnea, No cough, No COPD, Yes asthma, No emphysema, No wheezing Gastro Gastrointestinal: Yes abdominal pain, Yes nausea or vomiting, Yes diarrhea, Yes constipation, No blood in stool, No acid reflux, No hemorrhoids, No ulcers, No gallbladder problem, No black,tarry stools Tate Hematologic: No blood thinners, No blood disorders, No bleeding, Yes anemia, No blood clots Neuro Neurologic: No system reviewed and no additional complaints, except as docu, No as per HPI, No abnormal walking, No abnormal hearing, No abnormal movements, No abnormal speech, No behavioral changes, No burning sensations, No confusion, No seizure-like activity, No unsteadiness, No dizziness, No localized weakness, No frequent falls, No headache(s), No lack of coordination, No loss of vision, No memory loss, No numbness, No other visual disturbances, No radiating pain, No restless legs, No sensory deficit, No fainting, No tingling, No tremor(s), No weakness, No other Exam Const General: cooperative, other (Dyspneic with minimal exertion) Nutritional Appearance: obese morbidly obese Orientation: alert, awake [facility] Head: normal to inspection Chest Breast Palpation: No nipple discharge Resp Auscultation: clear to auscultation bilaterally Other: Diminished respiratory excursion Cardio Rate: regular rate Rhythm: regular rhythm Heart Sounds: no murmurs GI Palpation: soft Auscultation: normal bowel sounds Other: Well-healed oblique right subcostal incision Musc Cervical Spine: normal cervical lordosis Neuro Cognition: normal cognition Extrem Other: 3+ bilateral lower extremity edema, support hose in place Psych Affect: normal affect Assessment & Plan Problems 1. Abdominal pain R10.9 Plan Patient has concerns about multiple features. Abdominal pain epigastrium bilateral subcostally. Distention. Immediate postprandial nausea. Despite that weight gain. There was question as to whether she could have a bowel obstruction. Abdominal x-rays were not remarkable except possible focal ileus left upper quadrant a specific request has been made for referral for combined upper and lower endoscopy. With this complexity of presentation. I think it is reasonable to get a CT scan abdomen pelvis with oral contrast prior to any intervention. I then have proposed for the patient a esophagogastroduodenoscopy with possible biopsy or polypectomy or colonoscopy with possible biopsy or polypectomy as indicated. She is aware that her medical comorbidities and BMI of 49 place her at increased risk. We would need to use an adult colonoscope. She is aware of the technique, benefit, risk of alternatives. I am hopeful to be able to provide the referring primary care with an etiology to some of her concerns. It may well be however that she does not have an acute surgical illness. The mild anemia may be simply anemia of chronic disease or related to her rheumatologic issues. She has had an opportunity to ask and have questions answered. I appreciate the opportunity of assisting with her surgical care. We will proceed with a CT scan then endoscopic evaluation is indicated. Copy: Dr. Jass Solo and Josy Cotton, [facility] Dieter Schwarz M.D., F.A.C.S. Orders Orders: Abdomen/Pel W ORAL Cont Only Today R10.9 Coding Level of Care Code 61434 Diagnoses Abdominal pain R10.9 I have re-examined the patient. There are no clinical changes since date of exam. Procedure Criteria Procedure Type: Elective COVID Risk Discussion: The surgeon/proceduralist and patient have discussed in detail the risk of exposure to and/or potential harm posed by the COVID-19 virus with having a surgery/procedure at this time versus the risk of delaying the surgery/procedure. It is not possible to know either the risk of delaying the surgery or procedure or chance of getting an infection with perfect accuracy, but a joint decision was made between the patient and the surgeon/proceduralist to proceed at this time with the scheduled surgery/procedure as indicated on the consent form.
--- NOTE | 2020-07-14 09:00 | IMM_PTH ---
PATIENT: EVERTON BEATTY LOC: [facility] U#:[id number] AGE/SX: 74/F ROOM: RE07/14/[address]: Dr. Dieter Schwarz MD : 1945 BED: DIS: 07/14/2020 SPEC #: [id number] RECD: 07/14/20 13:18 STATUS: JEWEL REBrenda #: [id number] ABDULKADIR: 07/14/20 09:[address]: Dieter Schwarz DEPT: IMMUNOHISTOCHEMISTRY RECD BY: Caty Wynn ENTERED: 07/14/20 13:19 SP TYPE: IMMUNO OTHR DR: Dr. Jass Solo MD Tissues: B - Stomach, NOS Procedures: H Pylori (initial) PHYSICIAN & INSTITUTION [place] [id number] SPECIMEN INFORMATION: Tissue Source: B - Antrum biopsy Clinical Info: Abdominal pain Specimen Number: [id number] CPT code: 47974 METHODOLOGY: Deparaffinized sections of prefer/formalin-fixed tissue or PAP/DQ stained slides are incubated with monoclonal/polyclonal antibodies/oligonucleotide probes. Localization is made via biotin free immunoperoxidase method. Appropriate controls are performed and reacted as expected. Results on target cell population are indicated in the following table: RESULTS: ANTIBODY / CLONE RESULT Block B H Pylori (polyclonal) negative These tests were developed and their performance characteristics determined by [facility]. They may not have been cleared or approved by the U.S. Food and Drug Administration. The FDA has determined that such clearance or approval is not necessary. INTERPRETATION: B. Antrum biopsy: Negative for Helicobacter pylori organisms. SJ:rick 07/18/20
--- NOTE | 2020-07-14 09:00 | EGD_PTH ---
[id number] LOC: [facility] U#:[id number] AGE/SX: 74/F ROOM: RE07/14/[address]: Dr. Dieter Schwarz MD : 1945 BED: DIS: 07/14/2020 SPEC #: [id number] RECD: 07/14/20 12:06 STATUS: JEWEL AMI #: [id number] ABDULKADIR: 07/14/20 09:[address]: Dieter Schwarz DEPT: SURGICAL PATHOLOGY RECD BY: Lucas Sheikh ENTERED: 07/14/20 13:04 SP TYPE: EGD BIOPSY OT DR: Dr. Jass Solo MD Tissues: A - Duodenum, NOS B - Gastric mucous membrane C - Stomach, NOS D - Esophageal mucous membrane E - Esophageal mucous membrane F - Ascending colon G - Ascending colon H - COLON BIOPSY I - Transverse colon Procedures: Surgery Specimen Level IV HEADER OPERATION: Colonoscopy, EGD ([facility]) PRE-OP DIAGNOSIS: Abdominal pain TISSUE SUBMITTED: A - Duodenum biopsy, B - Antrum biopsy for histo and H. pylori, C - Cardia biopsy, D - Distal esophagus biopsy, E - Mid esophagus biopsy, F - Proximal ascending polyp (cold snare), G - Distal ascending polyp (snare), H - Random colonic biopsy, I - Distal transverse polyp (snare) MICROSCOPIC DIAGNOSIS A. Duodenum, biopsy: A fragment of small intestine mucosa, no pathologic diagnosis. B. Antrum, biopsy: Mild gastritis. See microscopic description and comment. C. Cardia, biopsy: A fragment of gastric mucosa with minimal congestion and changes suggestive of fundic gland polyp. D. Distal esophagus, biopsy: A fragment of squamous epithelium with mild chronic inflammation. E. Mid esophagus, biopsy: A fragment of squamous epithelium, no pathologic diagnosis. F. Proximal ascending colon polyp, biopsy: Fragments of tubular adenoma. G. Distal ascending colon polyp, biopsy: Tubular adenoma. H. Colon, random biopsy: Fragments of colonic mucosa, no pathologic diagnosis. I. Distal transverse colon polyp, biopsy: Fragments of tubular adenoma. Fragments of fecal material. SJ:rick 07/18/20 COMMENT B. The results of immunohistochemistry for Helicobacter pylori will be reported separately ([id number]). MICROSCOPIC DESCRIPTION Slides are reviewed. B. The specimen shows fragments of gastric mucosa with chronic inflammatory cell infiltrates in the lamina propria consisting of lymphocytes and plasma cells, consistent with mild chronic gastritis. GROSS DESCRIPTION A - Received in fixative is one container labeled with the patient's name and designated duodenum biopsy. The specimen consists of one irregular fragment of light delgado soft tissue that measures 0.3 x 0.2 x 0.1 cm. The specimen is totally submitted in one cassette. B - Received in fixative is one container labeled with the patient's name and designated antrum biopsy. The specimen consists of one irregular fragment of light delgado soft tissue that measures 0.4 x 0.3 x 0.1 cm. The specimen is totally submitted in one cassette. C - Received in fixative is one container labeled with the patient's name and designated cardia. The specimen consists of one irregular fragment of light delgado soft tissue that measures 0.6 x 0.2 x 0.1 cm. The specimen is totally submitted in one cassette. D - Received in fixative is one container labeled with the patient's name and designated distal esophagus biopsy. The specimen consists of one irregular fragment of light delgado soft tissue that measures 0.3 x 0.3 x 0.1 cm. The specimen is totally submitted in one cassette. E - Received in fixative is one container labeled with the patient's name and designated mid esophagus biopsy. The specimen consists of one irregular fragment of light delgado soft tissue that measures 0.4 x 0.3 x 0.1 cm. The specimen is totally submitted in one cassette. F - Received in fixative is one container labeled with the patient's name and designated proximal ascending polyp. The specimen consists of two irregular fragments of light delgado soft tissue that in aggregate measure 0.6 x 0.5 x 0.1 cm. The specimen is totally submitted in one cassette. G - Received in fixative is one container labeled with the patient's name and designated distal ascending polyp. The specimen consists of a piece of delgado-pink polyp measuring 0.3 x 0.3 x 0.2 cm. The specimen is totally submitted in one cassette. H - Received in fixative is one container labeled with the patient's name and designated random colonic biopsy. The specimen consists of multiple irregular fragments of light delgado soft tissue that in aggregate measure 1 x 0.5 x 0.1 cm. The specimen is totally submitted in one cassette. I - Received in fixative is one container labeled with the patient's name and designated distal transverse polyp. The specimen consists of multiple irregular fragments of delgado soft tissue mixed with fecal material that in aggregate measure 2.5 x 0.3 x 0.1 cm. The specimen is totally submitted in one cassette. / SJ:rg 07/14/20 TC:1 CPT: 00626 x9
[2020-07-14] MEDS: Lactated Ringers 1,000 ML 100 ML IV (09:02)
[2020-07-14 09:21] LABS: Bedside Glucose 190 mg/dL (70-110)
--- NOTE | 2020-07-14 09:57 | OP.EGD_ITS ---
Patient Name: Tanisha Rutherford Procedure Date: 07/14/2020 9:04 AM Date of : 1945 Age: 74 Procedure: Upper GI endoscopy Indications: Epigastric abdominal pain Providers: Dieter Schwarz MD Referring MD: Jass Solo Md Medicines: See the Anesthesia note for documentation of the administered medications Complications: No immediate complications. Procedure: Pre-Anesthesia Assessment: - Prior to the procedure, a History and Physical was performed, and patient medications and allergies were reviewed. The patient's tolerance of previous anesthesia was also reviewed. The risks and benefits of the procedure and the sedation options and risks were discussed with the patient. All questions were answered, and informed consent was obtained. Prior Anticoagulants: The patient has taken no previous anticoagulant or antiplatelet agents. ASA Grade Assessment: III - A patient with severe systemic disease. After reviewing the risks and benefits, the patient was deemed in satisfactory condition to undergo the procedure. After obtaining informed consent, the endoscope was passed under direct vision. Throughout the procedure, the patient's blood pressure, pulse, and oxygen saturations were monitored continuously. The Endoscope was introduced through the mouth, and advanced to the second part of duodenum. The upper GI endoscopy was accomplished without difficulty. The patient tolerated the procedure well. Scope In: 9:26:44 AM Scope Out: 9:31:49 AM Total Procedure Duration Time 0 hours 5 minutes 5 seconds Findings: The mid esophagus was normal. Biopsies were taken with a cold forceps for histology. A medium-sized hiatal hernia was present. Esophagitis with no bleeding was found 38 cm from the incisors. Biopsies were taken with a cold forceps for histology. Patchy mildly erythematous mucosa without bleeding was found in the cardia. Biopsies were taken with a cold forceps for histology. Diffuse mildly erythematous mucosa without bleeding was found in the gastric antrum. Biopsies were taken with a cold forceps for histology. The examined duodenum was normal. Biopsies were taken with a cold forceps for histology. Impression: - Normal mid esophagus. Biopsied. - Medium-sized hiatal hernia. - Reflux esophagitis. Biopsied. - Erythematous mucosa in the cardia. Biopsied. - Erythematous mucosa in the antrum. Biopsied. - Normal examined duodenum. Biopsied. Recommendation: - Discharge patient to home. - Resume previous diet. - Continue present medications. - Await pathology results. - Telephone my office for pathology results in 1 week. Findings do not suggest a source of severe epigastric pain. Findings appear chronic Procedure Code(s): --- Professional --- 56965, Esophagogastroduodenoscopy, flexible, transoral; with biopsy, single or multiple Diagnosis Code(s): --- Professional --- K44.9, Diaphragmatic hernia without obstruction or gangrene K21.0, Gastro-esophageal reflux disease with esophagitis K31.89, Other diseases of stomach and duodenum R10.13, Epigastric pain CPT copyright 2017 [employer]. All rights reserved. The codes documented in this report are preliminary and upon music executive review may be revised to meet current compliance requirements. Dieter Schwarz MD 07/14/2020 9:56:48 AM This report has been signed electronically. Number of Addenda: 0 Note Initiated On: 07/14/2020 9:04 AM
--- NOTE | 2020-07-14 09:57 | OP.CCLET_ITS ---
07/14/2020 Jass Solo Md Re : Upper GI endoscopy procedure for Tanisha Rutherford Dear Edil This procedure was performed on Tuesday, July 14, 2020. My impressions and recommendations are as follows: Impressions : - Normal mid esophagus. Biopsied. - Medium-sized hiatal hernia. - Reflux esophagitis. Biopsied. - Erythematous mucosa in the cardia. Biopsied. - Erythematous mucosa in the antrum. Biopsied. - Normal examined duodenum. Biopsied. Recommendations : - Discharge patient to home. - Resume previous diet. - Continue present medications. - Await pathology results. - Telephone my office for pathology results in 1 week. Findings do not suggest a source of severe epigastric pain. Findings appear chronic My findings are described in the full procedure note, which is enclosed. If I can be of further assistance, please feel free to contact me at Doctor phone number(s): Work: . Sincerely, Dieter Schwarz MD 07/14/2020 9:56:48 AM This report has been signed electronically.
--- NOTE | 2020-07-14 10:01 | OP.CCLET_ITS ---
07/14/2020 Jass Solo Md Re : Colonoscopy procedure for Tanisha Allenr Edil This procedure was performed on Tuesday, July 14, 2020. My impressions and recommendations are as follows: Impressions : - Hemorrhoids found on perianal exam. - One 6 mm polyp in the proximal ascending colon, removed with a cold snare. Resected and retrieved. - One 8 mm polyp in the distal ascending colon, removed with a hot snare. Resected and retrieved. - One 10 mm polyp in the distal transverse colon, removed with a hot snare. Resected and retrieved. - Diverticulosis in the sigmoid colon and in the descending colon. - Biopsies were taken with a cold forceps from the entire colon for evaluation of microscopic colitis. Recommendations : - Discharge patient to home. - Resume previous diet. - Continue present medications. - Repeat colonoscopy in 5 years for surveillance. - Telephone my office for pathology results in 1 week. My findings are described in the full procedure note, which is enclosed. If I can be of further assistance, please feel free to contact me at Doctor phone number(s): Work: . Sincerely, Dieter Schwarz MD 07/14/2020 10:01:10 AM This report has been signed electronically.
--- NOTE | 2020-07-14 10:01 | OP.COLON_ITS ---
Patient Name: Tanisha Rutherford Procedure Date: 07/14/2020 9:32 AM Date of : 1945 Age: 74 Procedure: Colonoscopy Indications: Epigastric abdominal pain Providers: Dieter Schwarz MD Referring MD: Jass Solo Md Medicines: See the Anesthesia note for documentation of the administered medications Patient Profile: Last Colonoscopy: date unknown. Complications: No immediate complications. Procedure: Pre-Anesthesia Assessment: - Prior to the procedure, a History and Physical was performed, and patient medications and allergies were reviewed. The patient's tolerance of previous anesthesia was also reviewed. The risks and benefits of the procedure and the sedation options and risks were discussed with the patient. All questions were answered, and informed consent was obtained. Prior Anticoagulants: The patient has taken no previous anticoagulant or antiplatelet agents. ASA Grade Assessment: III - A patient with severe systemic disease. After reviewing the risks and benefits, the patient was deemed in satisfactory condition to undergo the procedure. After I obtained informed consent, the scope was passed under direct vision. Throughout the procedure, the patient's blood pressure, pulse, and oxygen saturations were monitored continuously. The colonoscope was introduced through the anus and advanced to the cecum, identified by appendiceal orifice and ileocecal valve. The colonoscopy was performed without difficulty. The patient tolerated the procedure well. The quality of the bowel preparation was adequate to identify polyps. The ileocecal valve and the appendiceal orifice were photographed. Scope In: 9:33:49 AM Scope Withdrawal Time 0 hours 12 minutes 27 seconds Scope Out: 9:50:32 AM Total Procedure Duration Time 0 hours 16 minutes 43 seconds Findings: Hemorrhoids were found on perianal exam. A 6 mm polyp was found in the proximal ascending colon. The polyp was sessile. The polyp was removed with a cold snare. Resection and retrieval were complete. A 8 mm polyp was found in the distal ascending colon. The polyp was sessile. The polyp was removed with a hot snare. Resection and retrieval were complete. A 10 mm polyp was found in the distal transverse colon. The polyp was semi-pedunculated. The polyp was removed with a hot snare. Resection and retrieval were complete. Biopsies for histology were taken with a cold forceps from the entire colon for evaluation of microscopic colitis. Scattered diverticula were found in the sigmoid colon and descending colon. Impression: - Hemorrhoids found on perianal exam. - One 6 mm polyp in the proximal ascending colon, removed with a cold snare. Resected and retrieved. - One 8 mm polyp in the distal ascending colon, removed with a hot snare. Resected and retrieved. - One 10 mm polyp in the distal transverse colon, removed with a hot snare. Resected and retrieved. - Diverticulosis in the sigmoid colon and in the descending colon. - Biopsies were taken with a cold forceps from the entire colon for evaluation of microscopic colitis. Recommendation: - Discharge patient to home. - Resume previous diet. - Continue present medications. - Repeat colonoscopy in 5 years for surveillance. - Telephone my office for pathology results in 1 week. Procedure Code(s): --- Professional --- 45148, Colonoscopy, flexible; with removal of tumor(s), polyp(s), or other lesion(s) by snare technique 00326, 59, Colonoscopy, flexible; with biopsy, single or multiple Diagnosis Code(s): --- Professional --- K64.9, Unspecified hemorrhoids D12.2, Benign neoplasm of ascending colon D12.3, Benign neoplasm of transverse colon (hepatic flexure or splenic flexure) R10.13, Epigastric pain K57.30, Diverticulosis of large intestine without perforation or abscess without bleeding CPT copyright 2017 [place] [employer]. All rights reserved. The codes documented in this report are preliminary and upon sales activity manager review may be revised to meet current compliance requirements. Dieter Schwarz MD 07/14/2020 10:01:10 AM This report has been signed electronically. Number of Addenda: 0 Note Initiated On: 07/14/2020 9:32 AM
== END 2020-07-14 10:45 | disposition home or self-care (01) ==
LOC: EN 07:58 → AC 08:00
PROVIDERS: Anesthesiology; PCP Family Medicine; Referring Provider Family Medicine; Visit Provider Surgery
PROC: 0DJD8ZZ Inspection of Lower Intestinal Tract, Via Natural or Artificial Opening Endoscopic (ICD-10-PCS; CPT 45378; principal; 2020-07-14 08:55)
DX: K29.70 Gastritis, unspecified, without bleeding (principal); K44.9 Diaphragmatic hernia without obstruction or gangrene; K21.0 Gastro-esophageal reflux disease with esophagitis; D12.2 Benign neoplasm of ascending colon; D12.3 Benign neoplasm of transverse colon; K57.30 Diverticulosis of large intestine without perforation or abscess without bleeding; K64.9 Unspecified hemorrhoids; Z11.59 Encounter for screening for other viral diseases; I10 Essential (primary) hypertension; E03.9 Hypothyroidism, unspecified; F32.9 Major depressive disorder, single episode, unspecified; M79.7 Fibromyalgia; K58.9 Irritable bowel syndrome, unspecified; E66.9 Obesity, unspecified; Z68.42 Body mass index [BMI] 45.0-49.9, adult; L40.50 Arthropathic psoriasis, unspecified; L71.9 Rosacea, unspecified; G47.30 Sleep apnea, unspecified; E10.40 Type 1 diabetes mellitus with diabetic neuropathy, unspecified; M06.9 Rheumatoid arthritis, unspecified; E78.00 Pure hypercholesterolemia, unspecified; J45.909 Unspecified asthma, uncomplicated; M47.812 Spondylosis without myelopathy or radiculopathy, cervical region; Z78.0 Asymptomatic menopausal state; Z86.2 Personal history of diseases of the blood and blood-forming organs and certain disorders involving the immune mechanism; Z86.010 Personal history of colon polyps; Z90.49 Acquired absence of other specified parts of digestive tract; Z79.4 Long term (current) use of insulin; Z79.899 Other long term (current) drug therapy; Z87.891 Personal history of nicotine dependence
CPT/HCPCS: 43239; 45380; 45385; 82962; 87635; 88305; 88342; 94799; J7120; J2405; U0003

== ENCOUNTER → 2020-08-23 13:10 | Outpatient (CLI) | payer MEDICARE, OTHER, SELFPAY ==
[2020-07-14 08:31] VITALS: BMI 48.4
--- NOTE | 2020-08-23 13:16 | RAD_ITS ---
HISTORY: chronic knee pain ADDITIONAL HISTORY: None provided. EXAMINATION/TECHNIQUE: XR Knee 1 or 2 Views Right Number of images including paperwork: 2 COMPARISON: 12/29/2018 FINDINGS: BONES: No acute fracture. JOINTS: No subluxation. Severe degenerative changes of the medial and patellofemoral compartments with mild degenerative changes of the lateral compartment. SOFT TISSUES: No distinct foreign body. RAD/Knee 1 or 2 Views IMPRESSION: Degenerative changes without acute osseous abnormality. at 0609 Reported and signed by: Stephanie Ruiz MD Electronically Signed: Stephanie Ruiz MD at 6:09 EDT Tel , Service support ,
== END ==
PROVIDERS: PCP Family Medicine; Referring Provider Anesthesiology Pain Medicine; Visit Provider Anesthesiology Pain Medicine
DX: M25.561 Pain in right knee (principal)
CPT/HCPCS: 73560

== ENCOUNTER → 2020-12-12 16:19 | Outpatient (CLI) | payer MEDICARE, OTHER, SELFPAY ==
[2020-07-14 08:31] VITALS: BMI 48.4
[2020-12-12 18:00] LABS: Absolute Lymphocyte Count 1.63 X10^3/uL (0.83-4.51); Absolute Neutrophil Count 4.8 X10^3/uL (2.0-7.7); Basophil% 1.3 % (0-1); Eosinophil# 0.36 X10^3/uL; Eosinophils% 4.8 % (0-5); Hematocrit 35.5 % (37-47); Hemoglobin 11.7 g/dL (12.0-15.0); Lymphocyte # 1.63 X10^3/ul (4.0); Lymphocyte % 21.6 % (19-41); Mean Corpuscular Hgb 29.5 pg (27.0-32.0); Mean Corpuscular Volume 89.4 fL (81-99); Mean Platelet Vol. 10.8 fl (6.2-12.0); Monocyte# 0.66 X10^3/uL; Monocyte% 8.8 % (0-10); NRBC Flagged by Analyzer 0 % (0-5); Neutrophil # 4.76 X10^3/uL (2.7-7.7); Neutrophil % 63.1 % (47-70); Platelet Count 267 K/mm3 (150-450); RBC Distribution Width SD 38.8 fl (35.1-43.9); Red Blood Count 3.97 M/mm3 (4.2-5.4); White Blood Count 7.5 K/mm3 (4.4-11.0)
[2020-12-12 18:28] LABS: Hemoglobin A1c 7.3 % (3.8-5.6)
[2020-12-12 19:22] LABS: AST(SGOT) 19 U/L (15-37); Alanine Aminotransfer ALT/SGPT 25 U/L (13-56); Albumin, Serum 3.5 g/dL (3.2-5.0); Alkaline Phosphatase 65 U/L (45-117); Anion Gap 4 (5-15); BUN 25 mg/dL (7-18); BUN/Creat Ratio 21.7 RATIO (10-20); Calcium,Total 9.6 mg/dL (8.5-10.1); Chloride 107 mmol/L (98-107); Cholesterol 159 mg/dL (200); Creatinine, Serum 1.15 mg/dL (0.55-1.02); EST Glomerular Filtration Rate 49 mL/min (>60); Est Glom Filt Rate - Afr Amer 59 mL/min (>60); Globulin 3.5 g/dL (2.2-4.2); Glucose 72 mg/dL (74-106); High Density Lipoprotein 58 mg/dL; Potassium 4.5 mmol/L (3.5-5.1); Sodium Level 139 mmol/L (136-145); Thyroid Stim Hormone (TSH) 0.34 uIU/mL (0.358-3.74); Triglycerides 128 mg/dL; Very Low Density Lipoprotein 26 mg/dL (5-40)
== END ==
PROVIDERS: PCP Family Medicine; Referring Provider Family Medicine; Visit Provider Family Medicine
DX: L40.59 Other psoriatic arthropathy (principal); M79.7 Fibromyalgia; L40.8 Other psoriasis; G56.01 Carpal tunnel syndrome, right upper limb; M15.9 Polyosteoarthritis, unspecified; K21.00 Gastro-esophageal reflux disease with esophagitis, without bleeding; M47.892 Other spondylosis, cervical region; E11.69 Type 2 diabetes mellitus with other specified complication; E03.9 Hypothyroidism, unspecified; I10 Essential (primary) hypertension
CPT/HCPCS: 36415; 80053; 80061; 83036; 84443; 85025

== ENCOUNTER → 2020-12-27 14:04 | Outpatient (CLI) | payer MEDICARE, OTHER, SELFPAY ==
[2020-07-14 08:31] VITALS: BMI 48.4
[2020-12-27 15:24] LABS: Amphetamine Urine VISTA NEGATIVE (<1000 ng/mL); Barbiturate Urine VISTA NEGATIVE (< 200 ng/mL); Benzodiazepine Urine VISTA NEGATIVE (< 200 ng/mL); Cocaine Urine VISTA NEGATIVE (< 300 ng/mL); Ecstacy Urine VISTA NEGATIVE (< 500 ng/mL); Methadone Urine VISTA NEGATIVE (< 300 ng/mL); PCP Urine VISTA NEGATIVE (< 25 ng/mL); THC Urine VISTA NEGATIVE (< 50 ng/mL); Vista UDS pH Range 5
== END ==
PROVIDERS: PCP Family Medicine; Referring Provider Anesthesiology Pain Medicine; Visit Provider Anesthesiology Pain Medicine
DX: F11.20 Opioid dependence, uncomplicated (principal)
CPT/HCPCS: 80307

== ENCOUNTER 2021-01-03 09:00 | Outpatient (RCR) | payer MEDICARE, OTHER, SELFPAY ==
[2020-07-14 08:31] VITALS: BMI 48.4
== END 2021-01-03 23:59 ==
LOC: IMMUN 09:00
PROVIDERS: PCP Family Medicine; Visit Provider Family Medicine
DX: Z23 Encounter for immunization (principal)
CPT/HCPCS: 0011A; 0012A

== ENCOUNTER → 2021-03-12 15:18 | Outpatient (CLI) | payer MEDICARE, OTHER, SELFPAY ==
[2020-07-14 08:31] VITALS: BMI 48.4
[2021-03-12 17:34] LABS: Absolute Neutrophil Count 4.4 X10^3/uL (2.0-7.7); Basophil# 0.09 X10^3/uL; Basophil% 1.3 % (0-1); Eosinophil# 0.52 X10^3/uL; Eosinophils% 7.6 % (0-5); Hemoglobin 11.3 g/dL (12.0-15.0); Lymphocyte % 18.9 % (19-41); Mean Corp Hgb Conc 31.4 g/dL (32-36); Mean Corpuscular Hgb 28.8 pg (27.0-32.0); Mean Corpuscular Volume 91.8 fL (81-99); Mean Platelet Vol. 10.8 fl (6.2-12.0); Monocyte# 0.55 X10^3/uL; NRBC Flagged by Analyzer 0 % (0-5); Neutrophil # 4.39 X10^3/uL (2.7-7.7); Neutrophil % 63.9 % (47-70); Platelet Count 235 K/mm3 (150-450); RBC Distribution Width CV 12.1 % (11.6-14.6); RBC Distribution Width SD 40.5 fl (35.1-43.9); Red Blood Count 3.92 M/mm3 (4.2-5.4); White Blood Count 6.9 K/mm3 (4.4-11.0)
[2021-03-12 17:52] LABS: Hemoglobin A1c 7.3 % (3.8-5.6)
[2021-03-12 17:57] LABS: AST(SGOT) 20 U/L (15-37); Alanine Aminotransfer ALT/SGPT 24 U/L (13-56); Albumin, Serum 3.4 g/dL (3.2-5.0); Alkaline Phosphatase 67 U/L (45-117); Anion Gap 6 (5-15); BUN 21 mg/dL (7-18); BUN/Creat Ratio 17.9 RATIO (10-20); Calcium,Total 9.1 mg/dL (8.5-10.1); Chloride 104 mmol/L (98-107); Creatinine, Serum 1.17 mg/dL (0.55-1.02); EST Glomerular Filtration Rate 48 mL/min (>60); Est Glom Filt Rate - Afr Amer 58 mL/min (>60); Globulin 3.3 g/dL (2.2-4.2); Glucose 206 mg/dL (74-106); Potassium 4.2 mmol/L (3.5-5.1); Protein, Total 6.7 g/dL (6.4-8.2); Sodium Level 139 mmol/L (136-145); Thyroid Stim Hormone (TSH) 2.23 uIU/mL (0.358-3.74)
== END ==
PROVIDERS: PCP Family Medicine; Visit Provider Family Medicine
DX: E03.9 Hypothyroidism, unspecified (principal); E11.69 Type 2 diabetes mellitus with other specified complication; E11.65 Type 2 diabetes mellitus with hyperglycemia
CPT/HCPCS: 36415; 80053; 83036; 84443; 85025

== ENCOUNTER → 2021-04-13 15:35 | Outpatient (CLI) | payer MEDICARE, OTHER, SELFPAY ==
[2020-07-14 08:31] VITALS: BMI 48.4
[2021-04-13 17:24] LABS: Absolute Lymphocyte Count 1.21 X10^3/uL (0.83-4.51); Absolute Neutrophil Count 5.3 X10^3/uL (2.0-7.7); Basophil# 0.09 X10^3/uL; Basophil% 1.2 % (0-1); Eosinophil# 0.35 X10^3/uL; Eosinophils% 4.6 % (0-5); Hematocrit 35.4 % (37-47); Hemoglobin 11.4 g/dL (12.0-15.0); Lymphocyte # 1.21 X10^3/ul (0.83-4.51); Mean Corp Hgb Conc 32.2 g/dL (32-36); Mean Corpuscular Hgb 29.2 pg (27.0-32.0); Mean Corpuscular Volume 90.5 fL (81-99); Mean Platelet Vol. 10.5 fl (6.2-12.0); Monocyte# 0.55 X10^3/uL; Monocyte% 7.3 % (0-10); NRBC Flagged by Analyzer 0 % (0-5); Neutrophil % 70.1 % (47-70); Platelet Count 290 K/mm3 (150-450); RBC Distribution Width CV 12.2 % (11.6-14.6); RBC Distribution Width SD 39.8 fl (35.1-43.9); Red Blood Count 3.91 M/mm3 (4.2-5.4); White Blood Count 7.6 K/mm3 (4.4-11.0)
[2021-04-13 17:40] LABS: Ferritin 46 ng/mL (8-252); Iron 66 ug/dL (50-170); Iron Binding Capacity,Total 271 ug/dL (250-450)
== END ==
PROVIDERS: PCP Family Medicine; Referring Provider Family Medicine; Visit Provider Family Medicine
DX: D64.9 Anemia, unspecified (principal)
CPT/HCPCS: 36415; 82728; 83540; 83550; 85025

== ENCOUNTER → 2021-05-28 | Outpatient (CLI) | payer MEDICARE, OTHER, SELFPAY ==
[2020-07-14 08:31] VITALS: BMI 48.4
== END | disposition home or self-care (01) ==
PROVIDERS: Visit Provider Nurse Practitioner Family
DX: N39.0 Urinary tract infection, site not specified (principal)
CPT/HCPCS: 87086; 87088

== ENCOUNTER → 2021-06-13 15:17 | Outpatient (CLI) | payer MEDICARE, OTHER, SELFPAY ==
[2020-07-14 08:31] VITALS: BMI 48.4
[2021-06-13 17:48] LABS: Absolute Lymphocyte Count 1.26 X10^3/uL (0.83-4.51); Absolute Neutrophil Count 5.6 X10^3/uL (2.0-7.7); Basophil# 0.11 X10^3/uL; Basophil% 1.4 % (0-1); Eosinophil# 0.39 X10^3/uL; Eosinophils% 4.9 % (0-5); Hematocrit 33.9 % (37-47); Hemoglobin 10.8 g/dL (12.0-15.0); Lymphocyte # 1.26 X10^3/ul (0.83-4.51); Lymphocyte % 15.8 % (19-41); Mean Corp Hgb Conc 31.9 g/dL (32-36); Mean Corpuscular Hgb 28.6 pg (27.0-32.0); Mean Corpuscular Volume 89.7 fL (81-99); Mean Platelet Vol. 10.9 fl (6.2-12.0); Monocyte# 0.55 X10^3/uL; Monocyte% 6.9 % (0-10); NRBC Flagged by Analyzer 0 % (0-5); Neutrophil # 5.63 X10^3/uL (2.7-7.7); Neutrophil % 70.6 % (47-70); Platelet Count 224 K/mm3 (150-450); RBC Distribution Width CV 12.3 % (11.6-14.6); RBC Distribution Width SD 40.2 fl (35.1-43.9); Red Blood Count 3.78 M/mm3 (4.2-5.4)
[2021-06-13 18:10] LABS: ALB/GLOB Ratio 1.1 RATIO (0.9-2.4); AST(SGOT) 15 U/L (15-37); Alanine Aminotransfer ALT/SGPT 24 U/L (13-56); Albumin, Serum 3.4 g/dL (3.2-5.0); Alkaline Phosphatase 62 U/L (45-117); Anion Gap 7 (5-15); BUN 19 mg/dL (7-18); BUN/Creat Ratio 17.8 RATIO (10-20); Chloride 104 mmol/L (98-107); Creatinine, Serum 1.07 mg/dL (0.55-1.02); EST Glomerular Filtration Rate 53 mL/min (>60); Est Glom Filt Rate - Afr Amer 64 mL/min (>60); Globulin 3.2 g/dL (2.2-4.2); Glucose 137 mg/dL (74-106); Potassium 4.8 mmol/L (3.5-5.1); Protein, Total 6.6 g/dL (6.4-8.2); Sodium Level 136 mmol/L (136-145)
== END ==
PROVIDERS: PCP Internal Medicine Rheumatology; Referring Provider Internal Medicine Rheumatology; Visit Provider Internal Medicine Rheumatology
DX: L40.59 Other psoriatic arthropathy (principal); M79.7 Fibromyalgia; L40.8 Other psoriasis; G56.01 Carpal tunnel syndrome, right upper limb; M15.9 Polyosteoarthritis, unspecified; K21.00 Gastro-esophageal reflux disease with esophagitis, without bleeding; M47.892 Other spondylosis, cervical region; E11.9 Type 2 diabetes mellitus without complications; I10 Essential (primary) hypertension; E78.5 Hyperlipidemia, unspecified; E03.9 Hypothyroidism, unspecified; H40.9 Unspecified glaucoma; J45.909 Unspecified asthma, uncomplicated; G47.33 Obstructive sleep apnea (adult) (pediatric); I89.0 Lymphedema, not elsewhere classified; L71.9 Rosacea, unspecified; I83.11 Varicose veins of right lower extremity with inflammation
CPT/HCPCS: 36415; 80053; 85025

== ENCOUNTER → 2021-07-11 15:08 | Outpatient (CLI) | payer MEDICARE, OTHER, SELFPAY ==
[2021-07-11 17:39] LABS: Amphetamine Urine VISTA NEGATIVE (<1000 ng/mL); Barbiturate Urine VISTA NEGATIVE (< 200 ng/mL); Benzodiazepine Urine VISTA NEGATIVE (< 200 ng/mL); Cocaine Urine VISTA NEGATIVE (< 300 ng/mL); Ecstacy Urine VISTA NEGATIVE (< 500 ng/mL); Methadone Urine VISTA NEGATIVE (< 300 ng/mL); PCP Urine VISTA NEGATIVE (< 25 ng/mL); THC Urine VISTA NEGATIVE (< 50 ng/mL); Vista UDS pH Range 5
[2021-07-11 18:02] LABS: Absolute Lymphocyte Count 1.23 X10^3/uL (0.83-4.51); Absolute Neutrophil Count 4.1 X10^3/uL (2.0-7.7); Basophil% 1.6 % (0-1); Eosinophil# 0.38 X10^3/uL; Hematocrit 33.9 % (37-47); Hemoglobin 11.4 g/dL (12.0-15.0); Lymphocyte # 1.23 X10^3/ul (0.83-4.51); Lymphocyte % 19.3 % (19-41); Mean Corp Hgb Conc 33.6 g/dL (32-36); Mean Corpuscular Hgb 29.6 pg (27.0-32.0); Mean Corpuscular Volume 88.1 fL (81-99); Mean Platelet Vol. 10.8 fl (6.2-12.0); Monocyte# 0.54 X10^3/uL; Monocyte% 8.5 % (0-10); NRBC Flagged by Analyzer 0 % (0-5); Neutrophil # 4.08 X10^3/uL (2.7-7.7); Neutrophil % 64.1 % (47-70); Platelet Count 223 K/mm3 (150-450); RBC Distribution Width CV 12.2 % (11.6-14.6); RBC Distribution Width SD 39.3 fl (35.1-43.9); Red Blood Count 3.85 M/mm3 (4.2-5.4); White Blood Count 6.4 K/mm3 (4.4-11.0)
[2021-07-11 18:26] LABS: Hemoglobin A1c 7.3 % (3.8-5.6)
[2021-07-11 18:38] LABS: AST(SGOT) 18 U/L (15-37); Alanine Aminotransfer ALT/SGPT 28 U/L (13-56); Albumin, Serum 3.3 g/dL (3.2-5.0); Alkaline Phosphatase 70 U/L (45-117); Anion Gap 6 (5-15); BUN 22 mg/dL (7-18); BUN/Creat Ratio 19.5 RATIO (10-20); Calcium,Total 8.9 mg/dL (8.5-10.1); Chloride 104 mmol/L (98-107); Creatinine, Serum 1.13 mg/dL (0.55-1.02); EST Glomerular Filtration Rate 50 mL/min (>60); Est Glom Filt Rate - Afr Amer 60 mL/min (>60); Ferritin 28 ng/mL (8-252); Globulin 3.4 g/dL (2.2-4.2); Glucose 220 mg/dL (74-106); Iron 91 ug/dL (50-170); Potassium 4.7 mmol/L (3.5-5.1); Protein, Total 6.7 g/dL (6.4-8.2); Sodium Level 135 mmol/L (136-145); Thyroid Stim Hormone (TSH) 7.74 uIU/mL (0.358-3.74)
== END ==
LOC: MFPLAB 15:10 → LAB 16:36
PROVIDERS: PCP Family Medicine; Referring Provider Family Medicine; Visit Provider Family Medicine
DX: E11.69 Type 2 diabetes mellitus with other specified complication (principal); D64.9 Anemia, unspecified; E03.9 Hypothyroidism, unspecified; F11.20 Opioid dependence, uncomplicated
CPT/HCPCS: 36415; 80053; 80307; 82728; 83036; 83540; 84443; 85025

== ENCOUNTER 2021-12-21 14:43 | Outpatient (CLI) | payer MEDICARE, OTHER, SELFPAY ==
[2021-12-21 17:32] LABS: Absolute Lymphocyte Count 1.32 X10^3/uL (0.83-4.51); Absolute Neutrophil Count 4.3 X10^3/uL (2.0-7.7); Basophil# 0.08 X10^3/uL; Basophil% 1.2 % (0-1); Eosinophil# 0.43 X10^3/uL; Eosinophils% 6.4 % (0-5); Hematocrit 34.2 % (37-47); Hemoglobin 11.1 g/dL (12.0-15.0); Lymphocyte # 1.32 X10^3/ul (0.83-4.51); Lymphocyte % 19.6 % (19-41); Mean Corp Hgb Conc 32.5 g/dL (32-36); Mean Corpuscular Hgb 28.5 pg (27.0-32.0); Mean Corpuscular Volume 87.7 fL (81-99); Mean Platelet Vol. 10.8 fl (6.2-12.0); Monocyte# 0.59 X10^3/uL; Monocyte% 8.8 % (0-10); NRBC Flagged by Analyzer 0 % (0-5); Neutrophil # 4.27 X10^3/uL (2.7-7.7); Neutrophil % 63.6 % (47-70); Platelet Count 236 K/mm3 (150-450); RBC Distribution Width CV 12.4 % (11.6-14.6); RBC Distribution Width SD 39.8 fl (35.1-43.9); White Blood Count 6.7 K/mm3 (4.4-11.0)
[2021-12-21 18:03] LABS: AST(SGOT) 20 U/L (15-37); Alanine Aminotransfer ALT/SGPT 25 U/L (13-56); Albumin, Serum 3.4 g/dL (3.2-5.0); Alkaline Phosphatase 69 U/L (45-117); Anion Gap 7 (5-15); BUN 22 mg/dL (7-18); BUN/Creat Ratio 21.8 RATIO (10-20); Calcium,Total 9.3 mg/dL (8.5-10.1); Chloride 106 mmol/L (98-107); Creatinine, Serum 1.01 mg/dL (0.55-1.02); EST Glomerular Filtration Rate 57 mL/min (>60); Est Glom Filt Rate - Afr Amer 69 mL/min (>60); Globulin 3.4 g/dL (2.2-4.2); Glucose 218 mg/dL (74-106); Potassium 4.7 mmol/L (3.5-5.1); Protein, Total 6.8 g/dL (6.4-8.2); Sodium Level 137 mmol/L (136-145)
== END 2021-12-21 23:59 | disposition home or self-care (01) ==
LOC: MFPLAB 14:44
PROVIDERS: PCP Family Medicine; Referring Provider Family Medicine; Visit Provider Internal Medicine Rheumatology
DX: L40.59 Other psoriatic arthropathy (principal); E11.9 Type 2 diabetes mellitus without complications; M79.7 Fibromyalgia; L40.8 Other psoriasis; G56.01 Carpal tunnel syndrome, right upper limb; M15.9 Polyosteoarthritis, unspecified; K21.00 Gastro-esophageal reflux disease with esophagitis, without bleeding; M47.892 Other spondylosis, cervical region; I10 Essential (primary) hypertension; E78.5 Hyperlipidemia, unspecified; E03.9 Hypothyroidism, unspecified; H40.9 Unspecified glaucoma; J45.909 Unspecified asthma, uncomplicated; G47.33 Obstructive sleep apnea (adult) (pediatric)
CPT/HCPCS: 36415; 80053; 85025

== ENCOUNTER 2021-12-31 16:20 | Outpatient (CLI) | payer MEDICARE, OTHER, SELFPAY ==
[2021-12-31 17:40] LABS: Absolute Lymphocyte Count 1.42 X10^3/uL (0.83-4.51); Absolute Neutrophil Count 5.3 X10^3/uL (2.0-7.7); Basophil# 0.11 X10^3/uL; Basophil% 1.4 % (0-1); Eosinophil# 0.46 X10^3/uL; Eosinophils% 5.8 % (0-5); Hematocrit 33.8 % (37-47); Hemoglobin 10.9 g/dL (12.0-15.0); Lymphocyte # 1.42 X10^3/ul (0.83-4.51); Lymphocyte % 17.8 % (19-41); Mean Corp Hgb Conc 32.2 g/dL (32-36); Mean Corpuscular Hgb 28.7 pg (27.0-32.0); Mean Corpuscular Volume 88.9 fL (81-99); Mean Platelet Vol. 10.6 fl (6.2-12.0); Monocyte# 0.66 X10^3/uL; Monocyte% 8.3 % (0-10); NRBC Flagged by Analyzer 0 % (0-5); Neutrophil # 5.33 X10^3/uL (2.7-7.7); Neutrophil % 66.4 % (47-70); Platelet Count 235 K/mm3 (150-450); RBC Distribution Width CV 12.4 % (11.6-14.6); RBC Distribution Width SD 40.5 fl (35.1-43.9)
[2021-12-31 17:59] LABS: Vitamin D,25 Hydroxy 63.4 ng/mL
[2021-12-31 18:08] LABS: ALB/GLOB Ratio 0.9 RATIO (0.9-2.4); AST(SGOT) 17 U/L (15-37); Alanine Aminotransfer ALT/SGPT 23 U/L (13-56); Albumin, Serum 3.2 g/dL (3.2-5.0); Alkaline Phosphatase 66 U/L (45-117); Anion Gap 4 (5-15); BUN 19 mg/dL (7-18); BUN/Creat Ratio 18.8 RATIO (10-20); Calcium,Total 9.4 mg/dL (8.5-10.1); Chloride 105 mmol/L (98-107); Cholesterol 141 mg/dL (200); Creatinine, Serum 1.01 mg/dL (0.55-1.02); EST Glomerular Filtration Rate 57 mL/min (>60); Est Glom Filt Rate - Afr Amer 69 mL/min (>60); Globulin 3.5 g/dL (2.2-4.2); Glucose 173 mg/dL (74-106); Hemoglobin A1c 7.3 % (3.8-5.6); High Density Lipoprotein 46 mg/dL; Phosphorus 3.5 mg/dL (2.5-4.9); Potassium 4.5 mmol/L (3.5-5.1); Protein, Total 6.7 g/dL (6.4-8.2); Sodium Level 137 mmol/L (136-145); T4 Free Direct 1.12 ng/dL (0.76-1.46); Thyroid Stim Hormone (TSH) 3.81 uIU/mL (0.358-3.74); Triglycerides 175 mg/dL; Very Low Density Lipoprotein 35 mg/dL (5-40)
[2022-01-01 08:35] LABS: PTHIN 35.5 pg/mL (18.4-80.1)
== END 2021-12-31 23:59 | disposition home or self-care (01) ==
LOC: MTLAB 16:27
PROVIDERS: PCP Family Medicine; Referring Provider Family Medicine; Visit Provider Family Medicine
DX: E11.22 Type 2 diabetes mellitus with diabetic chronic kidney disease (principal); N18.30 Chronic kidney disease, stage 3 unspecified; E03.9 Hypothyroidism, unspecified; E55.9 Vitamin D deficiency, unspecified
CPT/HCPCS: 80053; 80061; 82306; 83036; 83970; 84100; 84439; 84443; 85025

== ENCOUNTER 2022-01-07 15:08 | Outpatient (CLI) | payer MEDICARE, OTHER, SELFPAY ==
[2022-01-07 15:15] LABS: Mucous, Urine 0 SEEN /hpf (<or=2+); Red Blood Cells-Urine 0 SEEN /hpf (0-5)
[2022-01-07 18:07] LABS: Color, Urine Yellow (Yellow); Glucose, Dipstick Normal (Normal); Ketone-Dipstick Negative (Negative); Leukocyte Esterase-Dipstick 25 /ul (Negative); Nitrite-Dipstick Negative (Negative); Occult Blood-Urine Negative /ul (Negative); Protein-Dipstick 30 mg/dl (Negative); Urine Bilirubin Dipstick Negative (Negative); Urine Clarity Sl. Cloudy (Clear); Urine Urobilinogen Normal (Normal); Urine pH 6.5 (5.0 - 8.0)
[2022-01-07 18:18] LABS: Bacteria 2+ /hpf (None Seen); Squamous Epithelial Cells - UA 0-5 SEEN /hpf (5-10); White Blood Cells 5-10 SEEN /hpf (0-5)
[2022-01-07 18:40] LABS: Microalbumin:Creatinine Ratio 237.8 mg/g CRE (<30 mg/g CRE); Protein, Urine (Random) 29.5 mg/dL (<11.9); Protein:Creat Ratio 401 mg/g CRE (0-200)
== END 2022-01-07 23:59 | disposition home or self-care (01) ==
LOC: LABSPEC 15:11
PROVIDERS: PCP Family Medicine; Referring Provider Family Medicine; Visit Provider Family Medicine
DX: E11.22 Type 2 diabetes mellitus with diabetic chronic kidney disease (principal); N18.30 Chronic kidney disease, stage 3 unspecified; E03.9 Hypothyroidism, unspecified; E55.9 Vitamin D deficiency, unspecified
CPT/HCPCS: 81001; 82043; 82570; 84156

== ENCOUNTER 2022-01-24 15:47 | Outpatient (CLI) | payer MEDICARE, OTHER, SELFPAY ==
[2022-01-24 18:11] LABS: Vitamin B12 553 pg/mL (211-911)
[2022-01-24 18:49] LABS: Ferritin 16 ng/mL (8-252); Iron 86 ug/dL (50-170); Iron Binding Capacity,Total 337 ug/dL (250-450)
== END 2022-01-24 23:59 | disposition home or self-care (01) ==
LOC: MFPLAB 15:49
PROVIDERS: PCP Family Medicine; Referring Provider Family Medicine; Visit Provider Family Medicine
DX: D64.9 Anemia, unspecified (principal)
CPT/HCPCS: 36415; 82607; 82728; 82746; 83540; 83550

== ENCOUNTER 2022-02-07 11:36 | Outpatient (CLI) | payer MEDICARE, OTHER, SELFPAY ==
--- NOTE | 2022-02-07 11:38 | NM_ITS ---
CLINICAL: 76-year-old diabetic female with reported history of nausea and early satiety. SEMI-SOLID PHASE 99m Tc SULFUR COLLOID GASTRIC EMPTYING STUDY COMPARISON: None available FINDINGS: The patient was administered 1.0 mCi of 99m Tc sulfur colloid mixed with oatmeal and consumed per os. Image acquisitions in the anterior-posterior projections for a total of 50 minutes. There is prompt visualization of the stomach. There is no gastroesophageal reflux identified. The T ? emptying was calculated to be approximately 11.1 minutes, (Normal: 12-56 minutes). NM/Gastric Emptying Study IMPRESSION: 1. There is mildly accelerated semi-solid phase gastric emptying compared to normal controls. (Beverley et al, J Nucl Med Tech 38: 186, 2010). Electronically Signed: Patric Bautista DO at 22:27 EDT ,
== END 2022-02-07 23:59 | disposition home or self-care (01) ==
LOC: NM 11:36
PROVIDERS: PCP Family Medicine; Referring Provider Family Medicine; Visit Provider Family Medicine
DX: R68.81 Early satiety (principal)
CPT/HCPCS: 78264; A9541

== ENCOUNTER 2022-02-19 13:03 | Outpatient (CLI) | payer MEDICARE, OTHER, SELFPAY ==
--- NOTE | 2022-02-19 13:13 | ECHOCS_ITS ---
Reason For Study: PHTN Procedure This was a 2D Doppler, Color Flow transthoracic echocardiogram. The study was technically difficult. Contrast injection was performed. All images taken with patient supine. Exam performed in department. Left Ventricle Based upon the 2D echocardiographic and contrast enhanced images obtained there appears to be grossly normal left ventricular size, wall motion, and systolic function. The estimated ejection fraction is 65 %. Diastolic function is indeterminate. Right Ventricle Normal RV size. Normal systolic function. Atria The left atrium is mildly enlarged. Normal right atrium. No doppler evidence for ASD. Mitral Valve There is no mitral annular calcification. Normal mitral valve. Trivial mitral valve insufficiency. Tricuspid Valve Normal tricuspid valve. Trivial tricuspid valve insufficiency. Unable to estimate RV systolic pressure/pulmonary artery pressure due to technically difficult study. Aortic Valve The aortic valve is not well visualized. Pulmonic Valve The pulmonic valve is not well visualized. Great Vessels The aortic root is not well visualized. Pericardium/Pleural No pericardial effusion. Medication 22 gauge I.V. with prn adaptor inserted into right arm. Diluted definity 2.5ml given slow IV push to enhance endocardial definition. MMode/2D Measurements & Calculations LVIDd: 5.5 cm IVSd: 1.5 cm LA dimension: 4.4 cm LVIDs: 3.3 cm LVPWd: 1.6 cm FS: 40.2 % LAV(MOD-bp): 70.1 ml LA A4 area: 23.7 cm2 RA A4 area: 25.1 cm2 LAV(MOD-bp) Indexed: 33.0 ml/m2 LAV(MOD-sp2): 59.4 ml LAV(MOD-sp4): 72.4 ml Time Measurements MV dec time: 0.26 sec Doppler Measurements & Calculations MV E max dionicio: 90.0 cm/sec Lat Peak E' Dionicio: 8.5 cm/sec Med Peak E' Dionicio: 7.6 cm/sec MV A max dionicio: 115.6 cm/sec E/E' lat: 10.6 E/E' med: 11.9 MV E/A: 0.78 MV V2 max: 116.5 cm/sec MV P1/2t max dionicio: 105.9 cm/sec Ao V2 max: 157.9 cm/sec MV max P.4 mmHg MV P1/2t: 69.8 msec Ao max P.0 mmHg MV V2 mean: 61.5 cm/sec MV dec slope: 444.6 cm/sec2 MV mean P.8 mmHg MV V2 VTI: 33.7 cm MVA(P1/2t): 3.2 cm2 LV V1 max: 125.5 cm/sec LV V1 max P.3 mmHg ECHO/Echo Complete W/ Contrast Interpretation Summary The study was technically difficult. Contrast injection was performed. Based upon the 2D echocardiographic and contrast enhanced images obtained there appears to be grossly normal left ventricular size, wall motion, and systolic function. The estimated ejection fraction is 65 %. The left atrium is mildly enlarged. Trivial mitral valve insufficiency. Trivial tricuspid valve insufficiency. Unable to estimate RV systolic pressure/pulmonary artery pressure due to techni joselo difficult study. Diastolic function is indeterminate. Ordering Physician: Jass Koehler Referring Physician: Jass Koehler Performed By: Sourav Nair RCS
== END 2022-02-19 23:59 | disposition home or self-care (01) ==
LOC: CVS 13:04
PROVIDERS: PCP Family Medicine; Visit Provider Family Medicine
DX: I27.20 Pulmonary hypertension, unspecified (principal)
CPT/HCPCS: 93306; Q9957; A4216; C8929

== ENCOUNTER → 2022-03-28 | Outpatient (CLI) | payer MEDICARE, OTHER, SELFPAY ==
[2022-03-28 13:19] LABS: Amphetamine Urine VISTA NEGATIVE (<1000 ng/mL); Barbiturate Urine VISTA NEGATIVE (< 200 ng/mL); Benzodiazepine Urine VISTA NEGATIVE (< 200 ng/mL); Cocaine Urine VISTA NEGATIVE (< 300 ng/mL); Ecstacy Urine VISTA NEGATIVE (< 500 ng/mL); Methadone Urine VISTA NEGATIVE (< 300 ng/mL); PCP Urine VISTA NEGATIVE (< 25 ng/mL); THC Urine VISTA NEGATIVE (< 50 ng/mL); Vista UDS pH Range 6
== END | disposition home or self-care (01) ==
LOC: LAB 12:04
PROVIDERS: PCP Family Medicine; Referring Provider Anesthesiology Pain Medicine; Visit Provider Anesthesiology Pain Medicine
DX: F11.20 Opioid dependence, uncomplicated (principal)
CPT/HCPCS: 80307

== ENCOUNTER 2022-04-02 10:57 | Outpatient (CLI) | payer MEDICARE, OTHER, SELFPAY ==
[2022-04-02 12:34] LABS: Absolute Lymphocyte Count 1.15 X10^3/uL (0.83-4.51); Absolute Neutrophil Count 4.9 X10^3/uL (2.0-7.7); Basophil# 0.12 X10^3/uL; Basophil% 1.7 % (0-1); Eosinophil# 0.39 X10^3/uL; Eosinophils% 5.5 % (0-5); Hematocrit 31.6 % (37-47); Hemoglobin 10.2 g/dL (12.0-15.0); Lymphocyte # 1.15 X10^3/ul (0.83-4.51); Lymphocyte % 16.2 % (19-41); Mean Corp Hgb Conc 32.3 g/dL (32-36); Mean Corpuscular Hgb 28.7 pg (27.0-32.0); Mean Platelet Vol. 10.6 fl (6.2-12.0); Monocyte# 0.55 X10^3/uL; Monocyte% 7.7 % (0-10); NRBC Flagged by Analyzer 0 % (0-5); Neutrophil # 4.88 X10^3/uL (2.7-7.7); Neutrophil % 68.5 % (47-70); Platelet Count 261 K/mm3 (150-450); RBC Distribution Width CV 12.1 % (11.6-14.6); RBC Distribution Width SD 39.8 fl (35.1-43.9); Red Blood Count 3.55 M/mm3 (4.2-5.4); White Blood Count 7.1 K/mm3 (4.4-11.0)
[2022-04-02 13:29] LABS: Hemoglobin A1c 6.6 % (3.8-5.6)
[2022-04-02 13:30] LABS: PTHIN 47.9 pg/mL (18.4-80.1)
[2022-04-02 13:34] LABS: BUN 22 mg/dL (7-18); Creatinine, Serum 1.06 mg/dL (0.55-1.02); EST Glomerular Filtration Rate 54 mL/min (>60); Glucose 152 mg/dL (74-106)
[2022-04-02 13:35] LABS: ALB/GLOB Ratio 0.9 RATIO (0.9-2.4); AST(SGOT) 20 U/L (15-37); Alanine Aminotransfer ALT/SGPT 24 U/L (13-56); Albumin, Serum 3.2 g/dL (3.2-5.0); Alkaline Phosphatase 64 U/L (45-117); Anion Gap 7 (5-15); BUN/Creat Ratio 20.8 RATIO (10-20); Chloride 105 mmol/L (98-107); Cholesterol 142 mg/dL (200); Est Glom Filt Rate - Afr Amer 65 mL/min (>60); Globulin 3.4 g/dL (2.2-4.2); High Density Lipoprotein 45 mg/dL; Phosphorus 3.5 mg/dL (2.5-4.9); Potassium 4.6 mmol/L (3.5-5.1); Protein, Total 6.6 g/dL (6.4-8.2); Sodium Level 137 mmol/L (136-145); T4 Free Direct 1.37 ng/dL (0.76-1.46); Thyroid Stim Hormone (TSH) 1.94 uIU/mL (0.358-3.74); Triglycerides 144 mg/dL; Very Low Density Lipoprotein 29 mg/dL (5-40)
== END 2022-04-02 23:59 | disposition home or self-care (01) ==
LOC: MFPLAB 11:02
PROVIDERS: PCP Family Medicine; Referring Provider Family Medicine; Visit Provider Internal Medicine Rheumatology
DX: E11.22 Type 2 diabetes mellitus with diabetic chronic kidney disease (principal); L40.59 Other psoriatic arthropathy; N18.30 Chronic kidney disease, stage 3 unspecified; E03.9 Hypothyroidism, unspecified; I12.9 Hypertensive chronic kidney disease with stage 1 through stage 4 chronic kidney disease, or unspecified chronic kidney disease; Z79.899 Other long term (current) drug therapy; M79.7 Fibromyalgia; L40.8 Other psoriasis; M65.331 Trigger finger, right middle finger; G56.01 Carpal tunnel syndrome, right upper limb; M15.9 Polyosteoarthritis, unspecified; K21.00 Gastro-esophageal reflux disease with esophagitis, without bleeding; M47.892 Other spondylosis, cervical region
CPT/HCPCS: 36415; 80053; 80061; 83036; 83970; 84100; 84439; 84443; 85025

== ENCOUNTER → 2022-04-05 | Outpatient (CLI) | payer MEDICARE, OTHER, SELFPAY ==
[2022-04-05 15:35] LABS: Mucous, Urine 0 SEEN /hpf (<or=2+); Red Blood Cells-Urine 0 SEEN /hpf (0-5)
[2022-04-05 18:06] LABS: Color, Urine Yellow (Yellow); Glucose, Dipstick Normal (Normal); Ketone-Dipstick Negative (Negative); Leukocyte Esterase-Dipstick Negative /ul (Negative); Nitrite-Dipstick Negative (Negative); Occult Blood-Urine 10 /ul (Negative); Protein-Dipstick Negative (Negative); Specific Gravity, Urine 1.015 (1.002-1.030); Urine Bilirubin Dipstick Negative (Negative); Urine Clarity Sl. Cloudy (Clear); Urine Urobilinogen Normal (Normal)
[2022-04-05 18:38] LABS: White Blood Cells 5-10 SEEN /hpf (0-5)
[2022-04-05 18:39] LABS: Bacteria 4+ /hpf (None Seen); Squamous Epithelial Cells - UA 0-5 SEEN /hpf (5-10)
[2022-04-05 19:21] LABS: Microalbumin,Random Urine 61.1 mg/L (NO RANGE EST.); Microalbumin:Creatinine Ratio 154.7 mg/g CRE (<30 mg/g CRE); Protein, Urine (Random) 14.1 mg/dL (<11.9); Protein:Creat Ratio 357 mg/g CRE (0-200)
== END | disposition home or self-care (01) ==
LOC: MFPLAB 15:32
PROVIDERS: PCP Family Medicine; Referring Provider Family Medicine; Visit Provider Family Medicine
DX: E11.22 Type 2 diabetes mellitus with diabetic chronic kidney disease (principal); N18.30 Chronic kidney disease, stage 3 unspecified; E03.9 Hypothyroidism, unspecified
CPT/HCPCS: 81001; 82043; 82570; 84156

== ENCOUNTER 2022-09-26 14:12 | Outpatient (CLI) | payer MEDICARE, OTHER, SELFPAY ==
[2022-09-26 18:02] LABS: Absolute Neutrophil Count 4.6 X10^3/uL (2.0-7.7); Basophil# 0.09 X10^3/uL; Basophil% 1.3 % (0-1); Eosinophil# 0.41 X10^3/uL; Eosinophils% 5.8 % (0-5); Hematocrit 34.5 % (37-47); Hemoglobin 11.1 g/dL (12.0-15.0); Lymphocyte % 18.5 % (19-41); Mean Corp Hgb Conc 32.2 g/dL (32-36); Mean Corpuscular Hgb 29.2 pg (27.0-32.0); Mean Corpuscular Volume 90.8 fL (81-99); Mean Platelet Vol. 11.1 fl (6.2-12.0); Monocyte# 0.58 X10^3/uL; Monocyte% 8.3 % (0-10); NRBC Flagged by Analyzer 0 % (0-5); Neutrophil # 4.62 X10^3/uL (2.7-7.7); Neutrophil % 65.7 % (47-70); Platelet Count 228 K/mm3 (150-450); RBC Distribution Width CV 12.6 % (11.6-14.6); RBC Distribution Width SD 41.5 fl (35.1-43.9)
[2022-09-26 18:19] LABS: ALB/GLOB Ratio 1.1 RATIO (0.9-2.4); AST(SGOT) 19 U/L (15-37); Alanine Aminotransfer ALT/SGPT 25 U/L (13-56); Albumin, Serum 3.2 g/dL (3.2-5.0); Alkaline Phosphatase 63 U/L (45-117); Anion Gap 7 (5-15); BUN 15 mg/dL (7-18); BUN/Creat Ratio 15.5 RATIO (10-20); Chloride 105 mmol/L (98-107); Creatinine, Serum 0.97 mg/dL (0.55-1.02); EST Glomerular Filtration Rate 60 mL/min (>60); Est Glom Filt Rate - Afr Amer 72 mL/min (>60); Globulin 2.9 g/dL (2.2-4.2); Glucose 114 mg/dL (74-106); Potassium 4.4 mmol/L (3.5-5.1); Protein, Total 6.1 g/dL (6.4-8.2); Sodium Level 139 mmol/L (136-145)
== END 2022-09-26 23:59 | disposition home or self-care (01) ==
LOC: MFPLAB 14:15
PROVIDERS: PCP Family Medicine; Visit Provider Internal Medicine Rheumatology
DX: L40.59 Other psoriatic arthropathy (principal); E11.9 Type 2 diabetes mellitus without complications; Z79.899 Other long term (current) drug therapy; M79.7 Fibromyalgia; I10 Essential (primary) hypertension; E78.5 Hyperlipidemia, unspecified; E03.9 Hypothyroidism, unspecified; H40.9 Unspecified glaucoma; L40.8 Other psoriasis; I83.11 Varicose veins of right lower extremity with inflammation; I89.0 Lymphedema, not elsewhere classified
CPT/HCPCS: 36415; 80053; 85025

== ENCOUNTER 2022-10-16 11:07 | Outpatient (CLI) | payer MEDICARE, OTHER, SELFPAY ==
[2022-10-16 11:23] LABS: Mucous, Urine 0 SEEN /hpf (<or=2+); Red Blood Cells-Urine 0 SEEN /hpf (0-5)
[2022-10-16 15:12] LABS: Absolute Lymphocyte Count 1.19 X10^3/uL (0.83-4.51); Absolute Neutrophil Count 4.7 X10^3/uL (2.0-7.7); Basophil# 0.11 X10^3/uL; Basophil% 1.5 % (0-1); Eosinophil# 0.73 X10^3/uL; Hematocrit 34.7 % (37-47); Hemoglobin 10.9 g/dL (12.0-15.0); Lymphocyte # 1.19 X10^3/ul (0.83-4.51); Lymphocyte % 16.3 % (19-41); Mean Corp Hgb Conc 31.4 g/dL (32-36); Mean Corpuscular Hgb 28.3 pg (27.0-32.0); Mean Corpuscular Volume 90.1 fL (81-99); Mean Platelet Vol. 11.3 fl (6.2-12.0); Monocyte# 0.59 X10^3/uL; Monocyte% 8.1 % (0-10); NRBC Flagged by Analyzer 0 % (0-5); Neutrophil # 4.66 X10^3/uL (2.7-7.7); Neutrophil % 63.8 % (47-70); Platelet Count 247 K/mm3 (150-450); RBC Distribution Width CV 12.6 % (11.6-14.6); RBC Distribution Width SD 40.8 fl (35.1-43.9); Red Blood Count 3.85 M/mm3 (4.2-5.4); White Blood Count 7.3 K/mm3 (4.4-11.0)
[2022-10-16 15:35] LABS: ALB/GLOB Ratio 1.2 RATIO (0.9-2.4); AST(SGOT) 15 U/L (15-37); Alanine Aminotransfer ALT/SGPT 21 U/L (13-56); Albumin, Serum 3.4 g/dL (3.2-5.0); Alkaline Phosphatase 61 U/L (45-117); Anion Gap 7 (5-15); BUN 23 mg/dL (7-18); BUN/Creat Ratio 25.3 RATIO (10-20); Calcium,Total 8.9 mg/dL (8.5-10.1); Chloride 108 mmol/L (98-107); Cholesterol 124 mg/dL (200); Creatinine, Serum 0.91 mg/dL (0.55-1.02); EST Glomerular Filtration Rate 64 mL/min (>60); Est Glom Filt Rate - Afr Amer 78 mL/min (>60); Globulin 2.8 g/dL (2.2-4.2); Glucose 103 mg/dL (74-106); High Density Lipoprotein 56 mg/dL; Phosphorus 3.9 mg/dL (2.5-4.9); Potassium 4.7 mmol/L (3.5-5.1); Protein, Total 6.2 g/dL (6.4-8.2); Sodium Level 140 mmol/L (136-145); T4 Free Direct 1.78 ng/dL (0.76-1.46); Thyroid Stim Hormone (TSH) 0.02 uIU/mL (0.358-3.74); Triglycerides 86 mg/dL; Very Low Density Lipoprotein 17 mg/dL (5-40)
[2022-10-16 15:38] LABS: PTHIN 67.7 pg/mL (18.4-80.1)
[2022-10-16 15:41] LABS: Microalbumin:Creatinine Ratio 488.2 mg/g CRE (<30 mg/g CRE); Protein, Urine (Random) 37.8 mg/dL (<11.9); Protein:Creat Ratio 809 mg/g CRE (0-200)
[2022-10-16 15:42] LABS: Color, Urine Yellow (Yellow); Glucose, Dipstick Normal (Normal); Ketone-Dipstick Negative (Negative); Leukocyte Esterase-Dipstick 25 /ul (Negative); Nitrite-Dipstick Negative (Negative); Occult Blood-Urine Negative /ul (Negative); Protein-Dipstick 30 mg/dl (Negative); Urine Bilirubin Dipstick Negative (Negative); Urine Clarity Clear (Clear); Urine Urobilinogen Normal (Normal); Urine pH 6.5 (5.0 - 8.0)
[2022-10-16 16:11] LABS: Squamous Epithelial Cells - UA 0-5 SEEN /hpf (5-10); White Blood Cells 0-5 SEEN /hpf (0-5)
[2022-10-16 16:12] LABS: Bacteria 3+ /hpf (None Seen)
== END 2022-10-16 23:59 | disposition home or self-care (01) ==
LOC: MFPLAB 11:17
PROVIDERS: PCP Family Medicine; Referring Provider Family Medicine; Visit Provider Family Medicine
DX: N18.31 Chronic kidney disease, stage 3a (principal); E11.22 Type 2 diabetes mellitus with diabetic chronic kidney disease; E03.9 Hypothyroidism, unspecified
CPT/HCPCS: 36415; 80053; 80061; 81001; 82043; 82306; 82570; 83036; 83970; 84100; 84156; 84439; 84443; 85025

== ENCOUNTER 2022-11-13 05:41 | Inpatient (IN) | payer MEDICARE, OTHER, SELFPAY ==
[2022-11-05 11:32] LABS: International Normalized Ratio 1.1; Prothrombin Time (Protime)PT. 14.1 SECONDS (11.7-14.9)
[2022-11-05 11:33] LABS: Partial Thromboplast Time 29.2 Seconds (24.1-36.2)
[2022-11-13] VITALS (15 sets, daily range): BP systolic 141–169; BP diastolic 48–83; PULSE 57–84; RESP 14–20; TEMP 36.1–37.3; O2SAT 86–100; BMI 39.2
[2022-11-13] MEDS: Lactated Ringers 1,000 ML 15 ML IV (06:47)
[2022-11-13 07:16] LABS: Bedside Glucose 115 mg/dL (74-106)
--- NOTE | 2022-11-13 07:30 | KID_PTH ---
PATIENT: EVERTON BEATTY LOC: MS3 U#:[id number] AGE/SX: 76/F ROOM: [facility] RE11/13/[address]: Dr. Matty Huizar MD : 1945 BED: 1 DIS: 11/15/2022 SPEC #: [id number] RECD: 11/13/22 11:25 STATUS: JEWEL MUELLER #: [id number] ABDULKADIR: 11/13/22 07:[address]: Matty Huizar DEPT: SURGICAL PATHOLOGY RECD BY: Mich Soto ENTERED: 11/13/22 12:05 SP TYPE: KIDNEY OTHR DR: Dr. Jass Koehler MD Tissues: Kidney, NOS Procedures: Surgery Specimen Level V HEADER OPERATION: Lap robotic radical nephrectomy PRE-OP DIAGNOSIS: Large renal mass in left kidney TISSUE SUBMITTED: Left kidney and lymph node MICROSCOPIC DIAGNOSIS Left kidney, radical nephrectomy: Clear cell carcinoma. See cancer synoptic report below. Adrenal gland, adrenalectomy: No pathologic change. No evidence of metastatic carcinoma. AM:rick 11/18/2022 COMMENT KIDNEY CANCER SUMMARY Procedure ? radical nephrectomy Specimen laterality ? left kidney Tumor size ? 5 cm in diameter Tumor focality ? 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 not identified Rhabdoid features - not identified Histologic grade - grade 1/3 (WHO/ISUP grade/Omid grade) Tumor necrosis ? not present Tumor extension ? tumor confined to kidney Margins ? uninvolved by invasive carcinoma Lymphvascular invasion - not identified Regional lymph nodes ? no lymph nodes found Non-neoplastic kidney ? mild arterionephrosclerosis and focal chronic inflammation PATHOLOGIC STAGE: T1b Nx Mx The above summary is in compliance with [employer] [place] [employer] (CAP) Cancer Protocols Checklist and [place] Joint Committee on Cancer (AJCC), Staging Manual, 8th Ed. Case has been reviewed in consultation with Dr. Tang who concurs with the above diagnosis. IDC:SJ MICROSCOPIC DESCRIPTION Slides are reviewed. GROSS DESCRIPTION Received in fixative is one container labeled with the patient's name and designated left kidney and lymph node. The specimen consists of left kidney containing a mass and is surrounded by an irregular envelope of adipose tissue. Neoplasm does not extend into perirenal fat which measures 10 cm in thickness and is not present at the soft tissue line of the specimen. The specimen weighs 1460 gm and measures 30 x 17 x 8 cm. The mass involves the mid to lower portion of kidney and measures 5 cm in diameter. The kidney itself measures 12 x 6 x 6 cm. Dissection of the renal veins, particularly those draining the area of the mass does not show any intravascular presence of neoplasm. On section, the tumorous mass is roughly spherical and measures 5 cm in diameter. It is composed of yellowish-red tissue with gelatinous cut surfaces. A focal area of hemorrhage is noted. Necrosis is not seen. The tumor appears to be pushing into the renal sinus; however, no invasion into the pelvocalyceal system or renal sinus is noted. The tumor is demarcated from the renal parenchyma which appears essentially unremarkable. Satellite nodules of tumor are not seen. The adrenal gland is present and measures 5 x 4 x 2 cm and is not involved by the tumor. A 7 cm segment of ureter is also present which is essentially unremarkable. Photoengraving Machine Operator/Tender sections are submitted in 12 cassettes as follows: 1 - vascular and ureteric resection margins, 2 - renal sinus tissue and more sections of ureter, 3-8 - tumor (cassettes 7 & 8 also contain the adjacent renal parenchyma tissue), 9 - uninvolved portion of renal parenchyma, 10 - perirenal adipose tissue including resection margin, 11 & 12 - adrenal gland. Sections are submitted after additional fixation. / SJ:rick 11/14/2022 TC:0 CPT: 11104 x2
[2022-11-13] MEDS: Cefazolin 2 GM in 0.9% Normal Saline 100 ML IV (07:33)
--- NOTE | 2022-11-13 07:51 | HP.PCM_ITS ---
HPI - General General Date of Admission: 11/13/22 Date of Service: 11/13/22 Chief Complaint: Left renal mass large HPI Narrative EVERTON BEATTY, is a 76 F who presents for a left radical nephrectomy for suspected renal cancer large renal mass in the left kidney [facility] Medical History (Updated 10/30/22 @ 13:33 by Aline Pham) Abdominal pain Abdominal pain Anemia Arthritis Asthma BiPAP (biphasic positive airway pressure) dependence Cervical spondylosis Constipation Depression Diabetes Fibromyalgia Former smoker GERD (gastroesophageal reflux disease) History of asthma History of back problems History of diabetic neuropathy History of hypothyroidism History of type 1 diabetes mellitus Hypertension IBS (irritable bowel syndrome) Lipodermatosclerosis Nausea Obesity Psoriatic arthritis Renal cell carcinoma Rosacea Sleep apnea SOB (shortness of breath) Wears glasses Home Medications calcium carbonate 600 mg calcium (1,500 mg) tablet 600 mg PO DAILY SUPPLEMENT 02/05/18 [History Last Taken Unknown] cetirizine 10 mg tablet 10 mg PO DAILY Check with primary doctor 02/05/18 [History Last Taken 11/13/22] coenzyme Q10 100 mg-vitamin E 10 unit capsule 1 ea PO DAILY Check with primary doctor 02/05/18 [History Last Taken Unknown] insulin glargine 100 unit/mL (3 mL) subcutaneous pen 45 units subcut 1000 Check with primary doctor 02/05/18 [History Last Taken Unknown] levocetirizine 5 mg tablet 5 mg PO DAILY Check with primary doctor 02/05/18 [History Last Taken Unknown] levothyroxine 175 mcg tablet 175 mcg PO SUTUWETHFRSA THYROID 02/05/18 [History Last Taken 07/14/20] mometasone-formoterol HFA 200 mcg-5 mcg/actuation aerosol inhaler 2 puff IH DAILY ASTHMA 02/05/18 [History Last Taken 11/13/22] montelukast 10 mg tablet 10 mg PO DAILY Check with primary doctor 02/05/18 [History Last Taken Unknown] multivitamin with iron 1 ea PO DAILY SUPPLEMENT 02/05/18 [History Last Taken Unknown] potassium chloride 20 mEq tablet,extended release(part/cryst) 20 meq PO LUNCH Check with primary doctor 02/05/18 [History Last Taken Unknown] pravastatin 20 mg tablet 20 mg PO QHS CHOLESTEROL 02/05/18 [History Last Taken Unknown] sitagliptin phosphate 100 mg tablet 100 mg PO DAILY DIABETES 02/05/18 [History Last Taken Unknown] albuterol sulfate 90 mcg/actuation aerosol inhaler 6.7 gm IH Q4H PRN PRN Wheezing 12/08/19 [History Last Taken Unknown] amlodipine 5 mg-benazepril 20 mg capsule 1 tab PO DAILY Check with primary doctor 12/08/19 [History Last Taken 11/13/22] carvedilol phosphate 20 mg capsule,[id number] multiphase 20 mg PO DAILY Check with primary doctor 12/08/19 [History Last Taken 11/13/22] furosemide 40 mg tablet 40 mg PO DAILY PRN WATER PILL 06/26/20 [History Last Taken Unknown] omeprazole 40 mg capsule,delayed release 40 mg PO DAILY Check with primary doctor 06/26/20 [History Last Taken 07/14/20] Miralax 1 dose OTHER DAILY Check with primary doctor 10/30/22 [History Last Taken Unknown] acetaminophen 650 mg tablet 650 mg PO BID Check with primary doctor 10/30/22 [History Last Taken Unknown] melatonin 10 mg capsule 10 mg PO DAILY Check with primary doctor 10/30/22 [History Last Taken Unknown] tramadol 50 mg tablet 50 mg PO BID Check with primary doctor 10/30/22 [History Last Taken Unknown] vortioxetine 10 mg tablet (Trintellix) 10 mg PO DAILY Check with primary doctor 10/30/22 [History Last Taken Unknown] docusate sodium 100 mg capsule (Colace) 100 mg PO BID #20 caps 11/13/22 [Rx Last Taken Unknown] oxycodone-acetaminophen 5 mg-325 mg tablet 1 tab PO Q6H PRN pain 7 days #14 tabs 11/13/22 [Rx Last Taken Unknown] Allergy/AdvReac Type Severity Reaction Status Date / Time telithromycin [From Ketek] Allergy Severe Nausea/Vom/ Verified 11/13/22 06:34 Diarrhea Penicillins [PCN] Allergy Swelling Verified 11/13/22 06:34 duloxetine [From Cymbalta] AdvReac Other Verified 11/13/22 06:34 Family History (Updated 06/26/20 @ 13:50 by Lou Mojica) Grandfather Arthritis Father Diabetes Grandmother Heart disease Hypertension Surgical History history bilateral cataract surgery History of cholecystectomy History of hysterectomy History of tubal ligation Social History (Updated 06/26/20 @ 14:[address] Dieter Schwarz MD) Smoking Status: Former smoker alcohol intake: never substance use type: does not use Vital Signs Vital Signs Vital Signs: 11/13/22 06:36 11/13/22 06:36 Temperature 97.3 F L Temperature Source Temporal Pulse Rate 57 L Respiratory Rate 18 Respiratory Pattern Normal Blood Pressure 167/61 H Blood Pressure Mean 96 Blood Pressure Source Monitor Blood Pressure Position Semi-Fowlers Blood Pressure Location Left Forearm Pulse Ox 100 Oxygen Delivery Method Room Air Weight Weight: 107 kg Body Mass Index (BMI) 39.2 Results Lab / Micro Data Labs: Laboratory Results - last 24 hr 11/13/22 06:26: POC Glucose 115 H
--- NOTE | 2022-11-13 10:41 | DCINST_ITS ---
Discharge Instructions Diet Discharge Diet: No restrictions, Light diet - advance as tolerated and Soft diet Activity Discharge Activity: May Not Drive Dressing / Incision Call your doctor if your incision/area has: Sudden Increased Bleeding Cleanse incision/area with: Soap & Water Follow Up Care Please Follow Up With: Matty Huizar MD When: 2 weeks Test Results: Test results from this visit will be discussed in further detail at your follow- up appointment, if applicable. Discharge Plan Admission Admit Date/Time: 11/13/22 05:41 Primary Reason for Your Visit: left nephrectomy Attending Provider: Matty Huizar Primary Care Provider: Jass Koehler Discharge Orders/Prescriptions Prescriptions: New oxycodone-acetaminophen 5-325 mg tablet 1 tab PO Q6H PRN (Reason: pain) 7 Days Qty: 14 0RF docusate sodium [Colace] 100 mg capsule 100 mg PO BID Qty: 20 0RF Continued omeprazole 40 mg capsule,delayed release(DR/EC) 40 mg PO DAILY levothyroxine 175 MCG tablet 175 mcg PO SUTUWETHFRSA cetirizine 10 MG tablet 10 mg PO DAILY calcium carbonate 600 MG tablet 600 mg PO DAILY potassium chloride 20 MEQ tablet,ER particles/crystals 20 meq PO LUNCH montelukast 10 MG tablet 10 mg PO DAILY pravastatin 20 MG tablet 20 mg PO QHS multivitamin with iron 1 EACH tablet 1 ea PO DAILY sitagliptin phosphate 100 MG tablet 100 mg PO DAILY insulin glargine 100 UNITS/ML insulin pen 45 units subcut 1000 levocetirizine 5 MG tablet 5 mg PO DAILY mometasone-formoterol 8.8 GM HFA aerosol inhaler 2 puff IH DAILY coenzyme [id number] 1 EACH capsule 1 ea PO DAILY furosemide 40 mg tablet 40 mg PO DAILY PRN (Reason: WATER PILL) amlodipine-benazepril 5 MG-20 MG capsule 1 tab PO DAILY albuterol sulfate 6.7 GM HFA aerosol inhaler 6.7 gm IH Q4H PRN PRN (Reason: Wheezing) carvedilol phosphate 20 MG capsule, ER multiphase 24 hr 20 mg PO DAILY acetaminophen 650 mg Tablet 650 mg PO BID tramadol 50 mg tablet 50 mg PO BID Label Comments: take 1 tablet by mouth twice a day melatonin 10 mg Capsule 10 mg PO DAILY Trintellix 10 mg tablet 10 mg PO DAILY Label Comments: take 1 tablet by mouth once daily Miralax 1 dose OTHER DAILY Other Ambulatory Orders: 12 Lead EKG (Routine) Timeframe: 20221105 Location: None Selected Ordered By: Dr. Bon Raines Referrals / Follow Up: Matty Huizar MD [Med Staff - Active Staff] - Jass Koehler MD [Primary Care Provider] -
--- NOTE | 2022-11-13 10:47 | OP.PCM_ITS ---
Report of Operation Date of Procedure: 11/13/22 Pre-Operative Diagnosis: Large left renal mass Post-Operative Diagnosis: The same Surgery/Procedure Performed:: Left radical nephrectomy laparoscopic, robotic assisted Description of Surgical Findings:: Patient presented to [facility] for a laparoscopic robotic assisted radical left nephrectomy. We talked about the options of management for the patient's renal mass. The patient had a renal mass. We discussed with the patient that there is always a possible metastatic disease development after this procedure and the patient understands that more treatments such as chemot herapy or oral chemotherapy may be necessary for further development of metastatic disease which may not be curable. We discussed the risks of the procedure including the risk of general anesthetic, bleeding, infection, blood transfusion, formation of hernias, recurrence of cancer in the local area, development of lymphoceles, chylous ascites, and lymph fluid collection in the renal bed. After full discussion with the patient, the patient was marked, and the patient was taken back to the operating room. Patient was taken back to the operating room was placed for supine on the table and underwent general endotracheal intubation. A Duron catheter was placed into the bladder. The patient side was recognized and marked. A timeout procedure was performed. I identified the patient the side of the surgery and the surgery that was planned to be performed. Once the patient was under general anesthetic then the patient was placed in modified lateral flank position on the patient and I had the patient's Left side up was going to proceed with a radical nephrectomy. I then infiltrated the skin with 1/2 percent Marcaine and a small incision in the skin and use a Veress needle to introduce the Veress needle into the peritoneal cavity and filled the peritoneal cavity with CO2 gas. I then placed the camera trocar under direct visualization. I then placed a right arm robotic trocar. Then if necessary scissors were used to dissect any adhesions. And then the left arm trocar was placed and a fourth robotic trocar was placed. After the trochars were placed I placed an air seal port between the #1 arm and the camera for the assistant prosecuting attorney to use during the case. Then the robot was docked and I placed scissors and prograsp and the robotic arms and proceeded first by incising the white line of Toldt and reflecting the colon off the kidney I started superiorly above the kidney reflecting the spleen of the kidney and worked all the way inferiorly after the colon was completely reflected off the kidneys fascia was grabbed and elevated and we started reflecting the mesentery of the colon off the kidney until I was able to get underneath the kidney and the inferior tail of the Gerota's fascia and I could see the gonadal vein and the ureter I went underneath the gonadal vein and the ureter and then start tracing up towards the hilum of the kidney. At this point then the fourth arm was docked and used the long Fenestrated grasper on the fourth arm to allow retraction of the kidney superiorly this allowed me to use the right and left arm to then continue the meticulous dissection toward the renal hilum it came across the gonadal vein and this was taken with clips. I dissected until I encounted the renal vein and saw bound pulse of the renal aretery. A cross lumbar vein was then transected and ligated with clips. Then behind the renal vein I dissected extensive and meticulous dissection was done to identify the main renal artery and several branches these were taken with clips with 2 clips down and one clip up and transected. After this meticulous dissection I made sure all the arterial inflow was taken and then the renal vein was nice and lax and then I placed 2 clips down to 1 clips up in the renal vein and transected the vein, then went superiorly and dissected between the spleen and the Gerota's fascia all the way superiorly. I then reflected the kidney off the lateral wall with electrocautery using such sharp dissection all the way down to the tail of the Gerota's fascia then came across the Gerota's fascia with an Endo AHMET staple to staple the gonadal vein and the ureter and the fat and the inferior portion of the tail of the driver license reviewing officer's fascia then the kidney was further reflected off the lateral sidewall working away all the way superiorly until I reached the upper part of the kidney and used clips generously to control lymphatics and any small perforating blood vessels. Then finally the entire kidney within the throat fascia was free. At this point the robot was undocked. I then scrubbed in at the bedside and via the inferior fourth arm robotic trocar I placed a 15 mm Endo Catch bag and placed the specimen within the Endo Catch bag we then and made the extraction site larger around the port site and then extracted the specimen within the bag. The extraction site was then closed with 0 Vicryl in 2 layers. I then reinspected the hilum of the dissection and there was no bleeding and no significant accumulation of blood within the abdominal cavity I irrigated the abdomen copiously to ensure no bleeding. Then I closed our camera trocar with a Teja Schaffer stitch and then a closer air seal port trocar with a Teaj Schaffer stitch. Then the pneumoperitoneum was released and the and all the incisions were closed in 2 layers with 4-0 Monocryl stitches. Sponges and needles were accounted for. Patient's anesthetic was reversed and extubated and taken to the PACU in stable condition blood loss was minimal. Surgeon: Matty Huizar Type of Anesthesia: General Drains: Duron Estimated Blood Loss (mL): 200 cc Admit VTE Documentation VTE Present on Admission: No VTE Mechan Device Prophylaxis: SCD's VTE Pharm Prophylaxis ordered?: No
[2022-11-13 11:45] LABS: Bedside Glucose 168 mg/dL (74-106)
[2022-11-13] MEDS: 0.9% Normal Saline 1,000 ML 125 ML IV ×2 (13:29→21:17)
[2022-11-13] MEDS: Morphine 2 MG/ML Syringe IV ×4 (13:30→20:12)
[2022-11-13] MEDS: Ondansetron 4 MG/2 ML Vial IV ×2 (13:37→22:11)
[2022-11-13] MEDS: Metoclopramide 10 MG/2 ML Vial IV (20:12)
[2022-11-13] MEDS: Docusate Sodium 100 MG Capsule 200 MG PO (22:58)
[2022-11-14] VITALS (9 sets, daily range): BP systolic 155–173; BP diastolic 42–67; PULSE 70–80; RESP 18–22; TEMP 2.9–37.6; O2SAT 93–97
[2022-11-14] MEDS: HYDROcodone Bitartrate/Apap 5/325 Tablet PO ×4 (00:03→20:02)
[2022-11-14] MEDS: Morphine 2 MG/ML Syringe IV (02:52)
[2022-11-14] MEDS: 0.9% Normal Saline 1,000 ML 125 ML IV (05:00)
[2022-11-14] MEDS: Levothyroxine 175 MCG Tablet PO (05:00)
[2022-11-14 05:49] LABS: Hematocrit 32.3 % (37-47); Hemoglobin 10.6 g/dL (12.0-15.0); Mean Corp Hgb Conc 32.8 g/dL (32-36); Mean Corpuscular Hgb 29.2 pg (27.0-32.0); Mean Platelet Vol. 10.9 fl (6.2-12.0); Platelet Count 174 K/mm3 (150-450); RBC Distribution Width CV 12.3 % (11.6-14.6); RBC Distribution Width SD 39.9 fl (35.1-43.9); Red Blood Count 3.63 M/mm3 (4.2-5.4); White Blood Count 7.9 K/mm3 (4.4-11.0)
[2022-11-14 06:05] LABS: Anion Gap 7 (5-15); BUN 16 mg/dL (7-18); BUN/Creat Ratio 12.5 RATIO (10-20); Calcium,Total 8.3 mg/dL (8.5-10.1); Chloride 108 mmol/L (98-107); Creatinine, Serum 1.28 mg/dL (0.55-1.02); EST Glomerular Filtration Rate 43 mL/min (>60); Est Glom Filt Rate - Afr Amer 52 mL/min (>60); Estimated Creatinine Clearance 34.17 ml/min; Glucose 137 mg/dL (74-106); Potassium 4.2 mmol/L (3.5-5.1); Sodium Level 139 mmol/L (136-145)
[2022-11-14] MEDS: Ondansetron 4 MG/2 ML Vial IV (07:57)
[2022-11-14] MEDS: amLODIPine 5 MG Tablet PO (07:58)
[2022-11-14] MEDS: Loratadine 10 MG Tablet PO (07:58)
[2022-11-14] MEDS: Carvedilol 6.25 MG Tablet PO ×2 (07:58→20:04)
[2022-11-14] MEDS: 0.9% Saline Lock 10 ML Syringe IV (07:58)
[2022-11-14] MEDS: Docusate Sodium 100 MG Capsule 200 MG PO ×2 (07:58→20:04)
[2022-11-14] MEDS: Pantoprazole Sodium 40 MG Tablet PO (07:59)
[2022-11-14] MEDS: Lisinopril 20 MG Tablet PO (07:59)
[2022-11-14] MEDS: LINAGLIPTIN 5 MG TABLET PO (08:00)
[2022-11-14] MEDS: Montelukast 10 MG Tablet PO (08:00)
[2022-11-14] MEDS: BENZOCAINE/MENTHOL 1 LOZENGE MUCOUS MEM (08:13)
--- NOTE | 2022-11-14 10:25 | EKG12_ITS ---
Test Reason : CHEST PAIN Blood Pressure : / mmHG Vent. Rate : 065 BPM Atrial Rate : 065 BPM P-R Int : 156 ms QRS Dur : 076 ms QT Int : 388 ms P-R-T Axes : 055 062 034 degrees QTc Int : 403 ms Normal sinus rhythm Normal ECG When compared with ECG of 05-NOV-2022 11:35, Questionable change in QRS axis Confirmed by ERIC GILMAN, CHAGO ([id number]), offline editor ERIC PRICE ([id number]) on 11/18/2022 11:11:33 AM Referred By: Matty Huizar Confirmed By:JOVITA REYES MD
--- NOTE | 2022-11-14 10:28 | NURSING ---
continues with chest pain, states it comes and goes. doing ekg now.
[2022-11-14 10:46] LABS: Bedside Glucose 172 mg/dL (74-106)
--- NOTE | 2022-11-14 12:02 | CASEMGMT ---
CHRISTIAN VILLA Assessment: Face to Face with pt for initial transition planning/care coordination assessment. RN DAISY introduced self and role at [facility], pt voices understanding and consents to assessment. Pt is A/O x4 and answers all questions appropriately at this time. Pt sitting up in chair stating she is having pain. Pt states her nurse is aware and verified with nurse. Care providers, pharmacy, and demographics verified/updated. Admitting Dx: left lap robotic radical nephrectomy PCP:Zakia Specialists:Bhupendra, uro; Chinyere, derm; Villa, rheum- pt states she does not want to return Preferred Pharmacy: [facility]. Pt states will pickle sorter meds, declines need for meds to be brought to the room. Insurance: [facility], [employer] Prescription Benefit: yes LNOK: Jose Rutherford, Living Arrangements: Pt lives with in a single story home with 3 steps to enter with grab bars. Pt reports she was I in ADL's prior to surgery. She denies concerns at home. She is anxious to dc as she states her is home and he has Parkinsons. Transportation: Pt drives self and denies concerns with transportation. Pt does not drive. Pt dtr is able to transport her post surgery until she is cleared to drive again. DME/HHC/SNF: Pt has a quad cane that she keeps with her at all times. Pt uses a FWW at home. She also has a rollator and walk in shower at home. Pt denies hx of HHC or SNF stays. Pt states no concerns with going home at time of dc. She initially declined therapy. Discussed with her importance of therapy to verify safety in the home. Pt agreeable. 6 clicks= 12. Discussed this with pt nurse as well. Pt states she ordered her lunch approx an hour ago. Per dietary, tray should arrive within 15 min and pt aware. Pt would like to stay up in chair to eat then return to bed. Pt nurse aware. Pt currently declines any need for HHC and states she has the phone numbers to call if she needs to obtain services. Pt states no further concerns/needs. CM to follow. Advised pt to ask CM if any further question/concerns/needs arise, voices understanding. Pt Goal: Home Plan:Home, will follow for any therapy needs.
[2022-11-14] MEDS: Potassium Chloride Oral Tablet 20 MEQ PO (12:33)
--- NOTE | 2022-11-14 12:36 | NURSING ---
1100 Dr Santos has not called.
[2022-11-14] MEDS: MELATONIN 10 MG TABLET PO (20:04)
[2022-11-14] MEDS: Pravastatin 20 MG Tablet PO (20:05)
[2022-11-15 03:05] VITALS: BP 169/47; PULSE 72; RESP 18; TEMP 36.9; O2SAT 96
[2022-11-15] MEDS: HYDROcodone Bitartrate/Apap 5/325 Tablet PO ×2 (03:10→09:44)
[2022-11-15] MEDS: Levothyroxine 175 MCG Tablet PO (03:13)
[2022-11-15 06:52] VITALS: O2SAT 94
[2022-11-15 08:58] VITALS: BP 173/59; PULSE 88; RESP 18; TEMP 37.2; O2SAT 96
[2022-11-15] MEDS: Loratadine 10 MG Tablet PO (09:07)
[2022-11-15] MEDS: Pantoprazole Sodium 40 MG Tablet PO (09:08)
[2022-11-15] MEDS: amLODIPine 5 MG Tablet PO (09:08)
[2022-11-15] MEDS: Docusate Sodium 100 MG Capsule 200 MG PO (09:08)
[2022-11-15] MEDS: Lisinopril 20 MG Tablet PO (09:08)
[2022-11-15] MEDS: Carvedilol 6.25 MG Tablet PO (09:08)
[2022-11-15] MEDS: Montelukast 10 MG Tablet PO (09:08)
[2022-11-15] MEDS: LINAGLIPTIN 5 MG TABLET PO (09:09)
[2022-11-15] MEDS: VORTIOXETINE HYDROBROMIDE 10 MG TABLET PO (09:09)
[2022-11-15 10:00] VITALS: RESP 18
--- NOTE | 2022-11-15 12:48 | CASEMGMT ---
Addendum entered by Katja Prado 11/15/22 14:33: TC to [facility], set pt up with an appt on 11/22/22 at 10:30am. Pt aware of the information of [facility] and appt. Addendum entered by Katja Prado 11/15/22 14:19: Received tc back from Cor[facility] at [facility], they are able to accept pt but she needs an appt with PCP prior. Original Note: Spoke with therapy, recommending C. RN CM in to pt room, pt sitting up in chair, discussed dc planning. Pt is agreeable to [facility]. Patient was provided a list of [facility] providers including quality and resource use data and consistent with the patient?s preferred geographic region, medical needs, and insurance network were provided from the [employer] Guide. Pt chose [facility]. TC to Coral, referral made at this time.
[2022-11-15] MEDS: Potassium Chloride Oral Tablet 20 MEQ PO (12:50)
--- NOTE | 2022-11-15 13:21 | PCM.DC.SUM ---
Providers Date of Admission: 11/13/22 Primary Care Physician: Dr. Jass Koehler MD Reason For Visit: LT LAP ROBOTIC RADICAL NEPHRECTOMY Medications at Discharge Home Medications calcium carbonate 600 mg calcium (1,500 mg) tablet 600 mg PO DAILY SUPPLEMENT 02/05/18 cetirizine 10 mg tablet 10 mg PO DAILY Check with primary doctor 02/05/18 coenzyme Q10 100 mg-vitamin E 10 unit capsule 1 ea PO DAILY Check with primary doctor 02/05/18 insulin glargine 100 unit/mL (3 mL) subcutaneous pen 45 units subcut 1000 Check with primary doctor 02/05/18 levocetirizine 5 mg tablet 5 mg PO DAILY Check with primary doctor 02/05/18 levothyroxine 175 mcg tablet 175 mcg PO SUTUWETHFRSA THYROID 02/05/18 mometasone-formoterol HFA 200 mcg-5 mcg/actuation aerosol inhaler 2 puff IH DAILY ASTHMA 02/05/18 montelukast 10 mg tablet 10 mg PO DAILY Check with primary doctor 02/05/18 multivitamin with iron 1 ea PO DAILY SUPPLEMENT 02/05/18 potassium chloride 20 mEq tablet,extended release(part/cryst) 20 meq PO LUNCH Check with primary doctor 02/05/18 pravastatin 20 mg tablet 20 mg PO QHS CHOLESTEROL 02/05/18 sitagliptin phosphate 100 mg tablet 100 mg PO DAILY DIABETES 02/05/18 albuterol sulfate 90 mcg/actuation aerosol inhaler 6.7 gm IH Q4H PRN PRN Wheezing 12/08/19 amlodipine 5 mg-benazepril 20 mg capsule 1 tab PO DAILY Check with primary doctor 12/08/19 carvedilol phosphate 20 mg capsule,[id number] multiphase 20 mg PO DAILY Check with primary doctor 12/08/19 furosemide 40 mg tablet 40 mg PO DAILY PRN WATER PILL 06/26/20 omeprazole 40 mg capsule,delayed release 40 mg PO DAILY Check with primary doctor 06/26/20 Miralax 1 dose OTHER DAILY Check with primary doctor 10/30/22 acetaminophen 650 mg tablet 650 mg PO BID Check with primary doctor 10/30/22 melatonin 10 mg capsule 10 mg PO DAILY Check with primary doctor 10/30/22 tramadol 50 mg tablet 50 mg PO BID Check with primary doctor 10/30/22 vortioxetine 10 mg tablet (Trintellix) 10 mg PO DAILY Check with primary doctor 10/30/22 docusate sodium 100 mg capsule (Colace) 100 mg PO BID #20 caps 11/13/22 oxycodone-acetaminophen 5 mg-325 mg tablet 1 tab PO Q6H PRN pain 7 days #14 tabs 11/13/22 Hospital Course Summary of Care Provided Hospital Course: Status post nephrectomy tolerating regular food diet walking and while ambulating doing well Home with home care Physical Exam Const alert and oriented x3 General Appearance: cooperative HEENT normocephalic, head/scalp atraumatic, EAC's normal and TM's normal bilaterally Eyes PERRL and EOMs intact bilaterally Pupil: sluggish Neck no lymphadenopathy, supple and no JVD General: trachea midline Lymph Lymphatic: no lymphadenopathy noted, lymphedema and lymphadenopathy Resp normal respiratory effort, normal air movement and clear to auscultation bilaterally Cardio regular rate, regular rhythm and peripheral pulses 2+ throughout GI soft to palpation, non-tender and non-distended Extremity normal capillary refill and no clubbing, cyanosis or edema General Extremity: no tenderness to palpation of joints or extremities Skin no rashes or lesions noted General Skin Exam: turgor normal Lesions: no lesions Rashes: no rashes Neuro CN's II-XII intact bilaterally Speech: speech normal Motor Exam: strength 5/5 throughout; Negative for general weakness Psych thought process normal, cooperative and affect normal Appearance: appropriate Weight / BMI Weight Weight: 107 kg Body Mass Index (BMI) 39.2 ABG / Lab / Microbiology Data Result Diagrams: 11/14/22 04:22 11/14/22 04:22 D/C Instructions Discharge Diet: No restrictions, Light diet - advance as tolerated and Soft diet Call your doctor if your incision/area has: Sudden Increased Bleeding Cleanse incision/area with: Soap & Water Please Follow Up With: Matty Huizar MD When: 2 weeks Meaningful Use Info Meaningful Use Diagnoses (Choose all that apply): None applicable Discharge Plan Admission Admit Date/Time: 11/13/22 05:41 Primary Reason for Your Visit: left nephrectomy Attending Provider: Matty Huizar Primary Care Provider: Jass Koehler Discharge Orders/Prescriptions Prescriptions: New oxycodone-acetaminophen 5-325 mg tablet 1 tab PO Q6H PRN (Reason: pain) 7 Days Qty: 14 0RF docusate sodium [Colace] 100 mg capsule 100 mg PO BID Qty: 20 0RF Continued omeprazole 40 mg capsule,delayed release(DR/EC) 40 mg PO DAILY levothyroxine 175 MCG tablet 175 mcg PO SUTUWETHFRSA cetirizine 10 MG tablet 10 mg PO DAILY calcium carbonate 600 MG tablet 600 mg PO DAILY potassium chloride 20 MEQ tablet,ER particles/crystals 20 meq PO LUNCH montelukast 10 MG tablet 10 mg PO DAILY pravastatin 20 MG tablet 20 mg PO QHS multivitamin with iron 1 EACH tablet 1 ea PO DAILY sitagliptin phosphate 100 MG tablet 100 mg PO DAILY insulin glargine 100 UNITS/ML insulin pen 45 units subcut 1000 levocetirizine 5 MG tablet 5 mg PO DAILY mometasone-formoterol 8.8 GM HFA aerosol inhaler 2 puff IH DAILY coenzyme [id number] 1 EACH capsule 1 ea PO DAILY furosemide 40 mg tablet 40 mg PO DAILY PRN (Reason: WATER PILL) amlodipine-benazepril 5 MG-20 MG capsule 1 tab PO DAILY albuterol sulfate 6.7 GM HFA aerosol inhaler 6.7 gm IH Q4H PRN PRN (Reason: Wheezing) carvedilol phosphate 20 MG capsule, ER multiphase 24 hr 20 mg PO DAILY acetaminophen 650 mg Tablet 650 mg PO BID tramadol 50 mg tablet 50 mg PO BID Label Comments: take 1 tablet by mouth twice a day melatonin 10 mg Capsule 10 mg PO DAILY Trintellix 10 mg tablet 10 mg PO DAILY Label Comments: take 1 tablet by mouth once daily Miralax 1 dose OTHER DAILY Other Ambulatory Orders: 12 Lead EKG (Routine) Timeframe: 20221105 Location: None Selected Ordered By: Dr. Bon Raines Referrals / Follow Up: Matty Huizar MD [Med Staff - Active Staff] - Jass Koehler MD [Primary Care Provider] - Disposition Discharge Orders: Discharge Patient (Routine); Ordered 11/15/22 Ordered By: Dr. Matty Huizar
== END 2022-11-15 15:20 | disposition home health service (06) | DRG 658 ==
LOC: ACINP 05:44 → MS3 12:54
PROVIDERS: Anesthesiology; Admitting Provider Urology; PCP Family Medicine; Referring Provider Urology; Visit Provider Urology
PROC: 0TT14ZZ Resection of Left Kidney, Percutaneous Endoscopic Approach (ICD-10-PCS; CPT 50546; principal; 2022-11-13 07:10)
DX: C64.2 Malignant neoplasm of left kidney, except renal pelvis (principal); E10.40 Type 1 diabetes mellitus with diabetic neuropathy, unspecified; Z79.4 Long term (current) use of insulin; I10 Essential (primary) hypertension; K58.9 Irritable bowel syndrome, unspecified; M79.7 Fibromyalgia; Z87.891 Personal history of nicotine dependence
CPT/HCPCS: 36415; 80048; 82962; 85027; 85610; 85730; 88307; 93005; 97162; 97166; 99252; J7030; J7120; A4216; G0463; J2405

== ENCOUNTER → 2022-12-09 | Outpatient (CLI) | payer MEDICARE, OTHER, SELFPAY ==
[2022-12-09 15:35] LABS: Absolute Lymphocyte Count 1.33 X10^3/uL (0.83-4.51); Absolute Neutrophil Count 3.7 X10^3/uL (2.0-7.7); Basophil# 0.08 X10^3/uL; Basophil% 1.3 % (0-1); Eosinophil# 0.74 X10^3/uL; Eosinophils% 11.6 % (0-5); Hematocrit 34.5 % (37-47); Hemoglobin 10.8 g/dL (12.0-15.0); Lymphocyte # 1.33 X10^3/ul (0.83-4.51); Lymphocyte % 20.8 % (19-41); Mean Corp Hgb Conc 31.3 g/dL (32-36); Mean Corpuscular Hgb 27.9 pg (27.0-32.0); Mean Corpuscular Volume 89.1 fL (81-99); Mean Platelet Vol. 10.3 fl (6.2-12.0); Monocyte% 7.8 % (0-10); NRBC Flagged by Analyzer 0 % (0-5); Neutrophil # 3.72 X10^3/uL (2.7-7.7); Neutrophil % 58.2 % (47-70); Platelet Count 226 K/mm3 (150-450); RBC Distribution Width CV 13.2 % (11.6-14.6); RBC Distribution Width SD 42.7 fl (35.1-43.9); Red Blood Count 3.87 M/mm3 (4.2-5.4); White Blood Count 6.4 K/mm3 (4.4-11.0)
[2022-12-09 16:03] LABS: Erythrocyte Sedimentation Rate 9 mm/hr (0-30)
[2022-12-09 16:18] LABS: AST(SGOT) 13 U/L (15-37); Alanine Aminotransfer ALT/SGPT 16 U/L (13-56); Albumin, Serum 3.2 g/dL (3.2-5.0); Alkaline Phosphatase 69 U/L (45-117); Anion Gap 8 (5-15); BUN 20 mg/dL (7-18); BUN/Creat Ratio 12.2 RATIO (10-20); CRP < 2.90 mg/L (0.0-3.0); Calcium,Total 9.1 mg/dL (8.5-10.1); Chloride 105 mmol/L (98-107); Creatinine, Serum 1.64 mg/dL (0.55-1.02); EST Glomerular Filtration Rate 32 mL/min (>60); Est Glom Filt Rate - Afr Amer 39 mL/min (>60); Free T3 2.3 pg/mL (2.18-3.98); Globulin 3.2 g/dL (2.2-4.2); Glucose 83 mg/dL (74-106); Potassium 4.6 mmol/L (3.5-5.1); Protein, Total 6.4 g/dL (6.4-8.2); Sodium Level 138 mmol/L (136-145); T4 Free Direct 1.42 ng/dL (0.76-1.46); Thyroid Stim Hormone (TSH) 0.32 uIU/mL (0.358-3.74)
[2022-12-11 14:10] LABS: Anti-Centromere B Ab <0.2 AI (0.0-0.9); Anti-Chromatin <0.2 AI (0.0-0.9); Anti-Jo <0.2 AI (0.0-0.9); Anti-Scleroderma-70 AB <0.2 AI (0.0-0.9); RNP Ab <0.2 AI (0.0-0.9); SJOGREN'S Anti-SS-A test < 0.2 AI (0.0-0.9); SJOGREN'S Anti-SS-B test < 0.2 AI (0.0-0.9); Smith Ab <0.2 AI (0.0-0.9)
[2022-12-11 15:08] LABS: Endomysial Antibody IgA Negative (Negative)
[2022-12-11 16:34] LABS: Anti-dsDNA Ab 1 IU/mL (0-9)
[2022-12-11 16:40] LABS: Immunoglobulin A 137 mg/dL (64-422); t-Transglutaminase IgA <2 U/mL (0-3)
[2022-12-14 14:08] LABS: Albumin 3.5 g/dL (2.9-4.4); Alpha-1-Globulins 0.2 g/dL (0.0-0.4); Alpha-2-Globulins 0.9 g/dL (0.4-1.0); Cytoplasmic Ab (C-ANCA) <1:20 titer (Neg:<1:20); Gamma Globulin 0.7 g/dL (0.4-1.8); Immunoglobulin A 138 mg/dL (64-422); Immunoglobulin G 739 mg/dL (586-1602); Immunoglobulin M 75 mg/dL (26-217); PROEL- TOTAL PROTEIN 6.2 g/dL (6.0-8.5)
[2022-12-16 19:52] LABS: Anti-Parietal Cell AB, QN 4.3 Units (0.0-20.0); Gastrin, Serum 467 pg/mL (0-115); Immunoglobulin E 629 IU/mL (6-495); Perinuclear Ab (P-ANCA) <1:20 titer (Neg:<1:20)
== END | disposition home or self-care (01) ==
PROVIDERS: PCP Family Medicine; Referring Provider Internal Medicine Gastroenterology; Visit Provider Internal Medicine Gastroenterology
DX: Z86.39 Personal history of other endocrine, nutritional and metabolic disease (principal); R63.4 Abnormal weight loss; R11.2 Nausea with vomiting, unspecified; R10.9 Unspecified abdominal pain
CPT/HCPCS: 36415; 80053; 82784; 82785; 82941; 83516; 84165; 84439; 84443; 84481; 85025; 85652; 86140; 86225; 86235; 86255; 86256; 86334

== ENCOUNTER → 2022-12-16 | Outpatient (CLI) | payer MEDICARE, OTHER, SELFPAY ==
[2022-12-18 18:51] LABS: Fats, Neutral Normal (.); Fats, Total Increased (.)
[2022-12-19 19:09] LABS: Pancreatic Elastase, Fecal 191 (>200)
== END | disposition home or self-care (01) ==
PROVIDERS: PCP Family Medicine; Referring Provider Internal Medicine Gastroenterology; Visit Provider Internal Medicine Gastroenterology
DX: R11.2 Nausea with vomiting, unspecified (principal); R63.4 Abnormal weight loss; R10.9 Unspecified abdominal pain
CPT/HCPCS: 82653; 82705

== ENCOUNTER → 2023-01-16 | Outpatient (CLI) | payer MEDICARE, OTHER, SELFPAY ==
[2023-01-16 15:54] LABS: AST(SGOT) 18 U/L (15-37); Alanine Aminotransfer ALT/SGPT 18 U/L (13-56); Albumin, Serum 3.1 g/dL (3.2-5.0); Alkaline Phosphatase 61 U/L (45-117); Anion Gap 6 (5-15); BUN 26 mg/dL (7-18); BUN/Creat Ratio 13.9 RATIO (10-20); Calcium,Total 8.8 mg/dL (8.5-10.1); Chloride 109 mmol/L (98-107); Cholesterol 115 mg/dL (200); Creatinine, Serum 1.87 mg/dL (0.55-1.02); EST Glomerular Filtration Rate 28 mL/min (>60); Est Glom Filt Rate - Afr Amer 34 mL/min (>60); Globulin 3.1 g/dL (2.2-4.2); Glucose 98 mg/dL (74-106); High Density Lipoprotein 44 mg/dL; Phosphorus 3.3 mg/dL (2.5-4.9); Potassium 5.5 mmol/L (3.5-5.1); Protein, Total 6.2 g/dL (6.4-8.2); Sodium Level 139 mmol/L (136-145); T4 Free Direct 1.61 ng/dL (0.76-1.46); Thyroid Stim Hormone (TSH) 0.11 uIU/mL (0.358-3.74); Triglycerides 87 mg/dL; Very Low Density Lipoprotein 17 mg/dL (5-40)
[2023-01-16 15:57] LABS: Vitamin D,25 Hydroxy 57.6 ng/mL
[2023-01-16 16:19] LABS: Hemoglobin A1c 5.5 % (3.8-5.6)
== END | disposition home or self-care (01) ==
PROVIDERS: PCP Family Medicine; Referring Provider Family Medicine; Visit Provider Family Medicine
DX: E11.22 Type 2 diabetes mellitus with diabetic chronic kidney disease (principal); N18.30 Chronic kidney disease, stage 3 unspecified; E03.9 Hypothyroidism, unspecified
CPT/HCPCS: 36415; 80053; 80061; 82306; 83036; 83970; 84100; 84439; 84443

== ENCOUNTER 2023-01-17 20:47 | Inpatient (IN) | payer MEDICARE, OTHER, SELFPAY ==
[2023-01-17 20:48] VITALS: BP 142/43; PULSE 71; RESP 18; TEMP 36.7; O2SAT 97; BMI 41.1
[2023-01-17 21:19] LABS: Absolute Lymphocyte Count 1.56 X10^3/uL (0.83-4.51); Absolute Neutrophil Count 4.4 X10^3/uL (2.0-7.7); Basophil# 0.05 X10^3/uL; Basophil% 0.7 % (0-1); Eosinophil# 0.55 X10^3/uL; Eosinophils% 7.6 % (0-5); Hematocrit 31.2 % (37-47); Hemoglobin 9.8 g/dL (12.0-15.0); Lymphocyte # 1.56 X10^3/ul (0.83-4.51); Lymphocyte % 21.5 % (19-41); Mean Corp Hgb Conc 31.4 g/dL (32-36); Mean Corpuscular Hgb 28.7 pg (27.0-32.0); Mean Corpuscular Volume 91.5 fL (81-99); Mean Platelet Vol. 11.2 fl (6.2-12.0); Monocyte# 0.65 X10^3/uL; NRBC Flagged by Analyzer 0 % (0-5); Neutrophil # 4.43 X10^3/uL (2.7-7.7); Neutrophil % 61.1 % (47-70); Platelet Count 187 K/mm3 (150-450); RBC Distribution Width CV 13.5 % (11.6-14.6); RBC Distribution Width SD 45.8 fl (35.1-43.9); Red Blood Count 3.41 M/mm3 (4.2-5.4); White Blood Count 7.3 K/mm3 (4.4-11.0)
--- NOTE | 2023-01-17 21:24 | EKG12_ITS ---
Test Reason : Blood Pressure : / mmHG Vent. Rate : 073 BPM Atrial Rate : 073 BPM P-R Int : 166 ms QRS Dur : 086 ms QT Int : 374 ms P-R-T Axes : 040 012 040 degrees QTc Int : 412 ms Normal sinus rhythm Normal ECG When compared with ECG of 17-JAN-2023 21:12, MANUAL COMPARISON REQUIRED, DATA IS UNCONFIRMED Confirmed by MONI GILMAN, ELISEO ([id number]), index editor ERIC PRICE ([id number]) on 01/21/2023 10:44:20 AM Referred By: CHRIS Confirmed By:ELISEO MONTENEGRO MD
--- NOTE | 2023-01-17 21:25 | EX.ED.DYSGE1 ---
HPI History of Present Illness Chief Complaint: Abn Labs Detail of Chief Complaint: Hyperkalemia and increased creatinine Informant: patient, spouse/S.O., family and PCP Onset/Context/Timing Onset: Today and Yesterday Context: Sudden Onset Timing: Continuous Quality: Elevated potassium Location: Renal Current Severity: Mild Maximum Severity: Mild Worsened by: Uncertain Relieved by: Nothing Associated Symptoms Associated Symptoms: Decreased urine output Narrative Narrative: Patient is a 77-year-old woman with reported nausea yesterday with decreased urine output. Was seen by PCP. Blood work yesterday revealed a potassium of 5.5. Repeat BMP reveals creatinine of 5.7. Yesterday creatinine was 1.87 with a GFR of 28. Today creatinine is 2.22 with a GFR of 22. Patient BUN and creatinine was 16 and 1.28 with a GFR of 43 on November 14, 2022. Patient denies use of salt substitutes. Patient is on no potassium sparing diuretic. She is on Lasix. She has had no change in her diet. Patient denies fever, chills night sweats. Patient denies headache, visual, ocular auditory symptoms. Patient denies cardiac respiratory symptoms. Patient denies dysuria, frequency, urgency or hematuria. Patient admits to 105 pound weight loss due to renal cell carcinoma. She is status post nephrectomy by Dr. Huizar for renal cell carcinoma. Prior similar symptoms: Yes Recent Illness/Hospitalization: No PFSH PFSH Medical History Anemia Arthritis Asthma BiPAP (biphasic positive airway pressure) dependence Cervical spondylosis Constipation Depression Diabetes Fibromyalgia Former smoker GERD (gastroesophageal reflux disease) History of asthma History of back problems History of diabetic neuropathy History of hypothyroidism History of type 1 diabetes mellitus Hypertension IBS (irritable bowel syndrome) Lipodermatosclerosis Nausea Obesity Psoriatic arthritis Renal cell carcinoma Rosacea Sleep apnea SOB (shortness of breath) Wears glasses Home Medications calcium carbonate 600 mg calcium (1,500 mg) tablet 600 mg PO DAILY SUPPLEMENT 02/05/18 [History Last Taken Unknown] cetirizine 10 mg tablet 10 mg PO DAILY Check with primary doctor 02/05/18 [History Last Taken 11/13/22] coenzyme Q10 100 mg-vitamin E 10 unit capsule 1 ea PO DAILY Check with primary doctor 02/05/18 [History Last Taken Unknown] insulin glargine 100 unit/mL (3 mL) subcutaneous pen 45 units subcut 1000 Check with primary doctor 02/05/18 [History Last Taken Unknown] levocetirizine 5 mg tablet 5 mg PO DAILY Check with primary doctor 02/05/18 [History Last Taken Unknown] levothyroxine 175 mcg tablet 175 mcg PO SUTUWETHFRSA THYROID 02/05/18 [History Last Taken 07/14/20] mometasone-formoterol HFA 200 mcg-5 mcg/actuation aerosol inhaler 2 puff IH DAILY ASTHMA 02/05/18 [History Last Taken 11/13/22] montelukast 10 mg tablet 10 mg PO DAILY Check with primary doctor 02/05/18 [History Last Taken Unknown] multivitamin with iron 1 ea PO DAILY SUPPLEMENT 02/05/18 [History Last Taken Unknown] potassium chloride 20 mEq tablet,extended release(part/cryst) 20 meq PO LUNCH Check with primary doctor 02/05/18 [History Last Taken Unknown] pravastatin 20 mg tablet 20 mg PO QHS CHOLESTEROL 02/05/18 [History Last Taken Unknown] sitagliptin phosphate 100 mg tablet 100 mg PO DAILY DIABETES 02/05/18 [History Last Taken Unknown] albuterol sulfate 90 mcg/actuation aerosol inhaler 6.7 gm IH Q4H PRN PRN Wheezing 12/08/19 [History Last Taken Unknown] amlodipine 5 mg-benazepril 20 mg capsule 1 tab PO DAILY Check with primary doctor 12/08/19 [History Last Taken 11/13/22] carvedilol phosphate 20 mg capsule,ext.[id number] multiphase 20 mg PO DAILY Check with primary doctor 12/08/19 [History Last Taken 11/13/22] furosemide 40 mg tablet 40 mg PO DAILY PRN WATER PILL 06/26/20 [History Last Taken Unknown] omeprazole 40 mg capsule,delayed release 40 mg PO DAILY Check with primary doctor 06/26/20 [History Last Taken 07/14/20] Miralax 1 dose OTHER DAILY Check with primary doctor 10/30/22 [History Last Taken Unknown] acetaminophen 650 mg tablet 650 mg PO BID Check with primary doctor 10/30/22 [History Last Taken Unknown] melatonin 10 mg capsule 10 mg PO DAILY Check with primary doctor 10/30/22 [History Last Taken Unknown] tramadol 50 mg tablet 50 mg PO BID Check with primary doctor 10/30/22 [History Last Taken Unknown] vortioxetine 10 mg tablet (Trintellix) 10 mg PO DAILY Check with primary doctor 10/30/22 [History Last Taken Unknown] docusate sodium 100 mg capsule (Colace) 100 mg PO BID #20 caps 11/13/22 [Rx Last Taken Unknown] oxycodone-acetaminophen 5 mg-325 mg tablet 1 tab PO Q6H PRN pain 7 days #14 tabs 11/13/22 [Rx Last Taken Unknown] [id number] 36,000-114,000-180,000 unit capsule,delay rel (Creon) See Rx Instructions PO .COMPLEX #320 caps 12/25/22 [Rx Last Taken Unknown] scopolamine base 1 mg over 3 days transdermal patch 1 patch transdermal Q3D PRN nausea and vomiting #10 ea 01/06/23 [Rx Last Taken Unknown] ondansetron HCl 4 mg tablet 4 mg PO Q6H #60 tabs 01/09/23 [Rx Last Taken Unknown] promethazine 25 mg rectal suppository 25 mg WI Q6H PRN nausea and vomiting #12 ea 01/09/23 [Rx Last Taken Unknown] Allergy/AdvReac Type Severity Reaction Status Date / Time telithromycin [From Ketek] Allergy Severe Nausea/Vom/ Verified 01/17/23 20:50 Diarrhea Penicillins [PCN] Allergy Swelling Verified 01/17/23 20:50 duloxetine [From Cymbalta] AdvReac Other Verified 01/17/23 20:50 Family History Grandfather Arthritis Father Diabetes Grandmother Heart disease Hypertension Surgical History history bilateral cataract surgery History of cholecystectomy History of hysterectomy History of tubal ligation Social History Smoking Status: Former smoker alcohol intake: never substance use type: does not use ROS ROS ED Constitutional Constitutional ED: Reports sweats and weight loss; Denies chills or fever(s) Eyes Eyes: Denies blurry vision, change in vision or diplopia ENT ENT ED: Denies ear pain, rhinorrhea or sore throat Cardiovascular Cardiovascular: Denies chest pain, orthopnea, palpitations or paroxysmal nocturnal dyspnea Respiratory/Chest Respiratory/Chest: Denies cough, dyspnea, dyspnea on exertion, orthopnea or paroxysmal nocturnal dyspnea Gastrointestinal Gastrointestinal: Reports nausea; Denies abdominal pain, constipation, diarrhea or melena Genitourinary Genitourinary ED: Reports other Details: Patient admits to decreased urine output. ; Denies dysuria, hematuria or urinary frequency Musculoskeletal Musculoskeletal: Reports back pain; Denies arthralgias, myalgias or neck pain Integumentary Denies Abrasions or rash Neurologic Neurologic: Reports weakness; Denies headache(s) or paresthesias Endocrine Endocrinology: Denies cold intolerance or heat intolerance Hematologic/Lymphatic Hematologic/Lymphatic: Reports systems reviewed and no addt'l complaints, except as documented EXAM Physical Exam Const Vital Signs: 01/17/23 20:48 01/17/23 20:53 Temperature 98.1 F Temperature Source Temporal Pulse Rate 71 Respiratory Rate 18 Respiratory Effort Normal Non-Labored Respiratory Pattern Normal Blood Pressure 142/43 H Blood Pressure Mean 76 Pulse Ox 97 Oxygen Delivery Method Room Air Positive well nourished, well developed and obese General Appearance ED: well developed, NAD and pallor; Negative for cyanotic or diaphoretic Nutritional Appearance: obese HEENT Reports moist mucous membranes HEENT Narrative: Head is atraumatic normocephalic. Ears normal. Nares patent. Posterior pharynx is normal. Uvula is midline Eyes PERRL and EOMs intact bilaterally General Eye ED: Negative for pale conjunctiva or scleral icterus Neck no lymphadenopathy, supple and no JVD Chest Wall inspection of chest normal and palpation of chest normal Resp normal respiratory effort and clear to auscultation bilaterally Cardio regular rate, regular rhythm, S1 normal heart sound, S2 normal heart sound and no murmurs GI normal to inspection, nondistended, normoactive bowel sounds, non-tender, non-distended and no masses; Negative for hepatosplenomegaly GI Narrative: No palpable pulsatile mass. Back/Spine no CVA tenderness Extremity Negative for normal to inspection Extremity Narrative: Pedal edema that is pitting in nature with minimal changes consistent with venous stasis dermatitis. Swelling is about baseline per patient and family. General Extremety ED: Yes edema General Extremity: edema Neuro oriented x3, CN's II-XII intact bilaterally and no sensory deficits noted Sensorium / Orientation: alert Motor Exam: strength 5/5 throughout Psych mental status grossly normal Skin No no rashes or lesions noted, no wounds and skin turgor normal General Skin Exam: pallor; Negative for elasticity normal or jaundice MDM MDM MDM Narrative Medical decision making narrative: Prior records reviewed. Patient's prior renal function tests were reviewed in the HPI. Patient has acute kidney injury with hyperkalemia. EKG reveals slightly prominent T waves when compared to prior and has a junctional rhythm with a rate of 45. We will treat for hyperkalemia with calcium gluconate, albuterol, 225 and 6 units of insulin. The hyperkalemia order set was initiated. Patient appears pale will obtain CBC to assess for anemia. PGT was obtained and is 137. History & Record Review Discussion w/independent historian: Patient, Significant other and Other (Dr. Dudley who called in prior to patient's arrival.) Additional record(s) reviewed:: Prior inpatient record (Operative note and hospitalization note for nephrectomy for renal cell carcinoma.), Prior outpatient record and Prior labs Lab Data Attestation: I reviewed the patient's lab results. Lab results narrative: BMP was not repeated since it was done several hours at [facility] lab. CBC does reveal anemia with an H&H of 9.8 and 31.2 with normal indices. Patient's H&H on November 14 was 10.6 and 32.3. This is not a significant difference. Patient does have proteinuria based on laboratory test done earlier today. Labs: Laboratory Results - last 24 hr 01/17/23 21:10 WBC 7.3 RBC 3.41 L Hgb 9.8 L Hct 31.2 L MCV 91.5 MCH 28.7 MCHC 31.4 L RDW Std Deviation 45.8 H RDW Coeff of Za 13.5 Plt Count 187 MPV 11.2 Immature Gran % (Auto) 0.100 Neut % (Auto) 61.1 Lymph % (Auto) 21.5 [place] % (Auto) 9.0 Eos % (Auto) 7.6 H Baso % (Auto) 0.7 Absolute Neuts (auto) 4.4 Absolute Lymphs (auto) 1.56 Nucleated RBC % 0 EKG Initial EKG: Attestation: I personally reviewed and interpreted this EKG as follows: Interpretation: - (Junctional rhythm with a rate of 45. T waves are slightly prominent. This is compared to EKG that was obtained November 14, 2022. 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
[2023-01-17] MEDS: Dextrose 50%-Water 25 GM/50 ML DISP.SYRIN IV (21:48)
[2023-01-17] MEDS: Insulin Lispro 10 UNIT in Syringe 0 ML 6 UNIT IV (21:48)
[2023-01-17] MEDS: Calcium Gluconate IV 3 GM in Syringe 1 EACH IV (21:48)
[2023-01-17 21:50] LABS: Bedside Glucose 135 mg/dL (74-106)
[2023-01-17 21:52] VITALS: BP 141/47; PULSE 59; RESP 18; TEMP 36.2; O2SAT 97
--- NOTE | 2023-01-17 22:15 | PCM.HP.STD ---
HPI - General General Date of Admission: 01/17/23 Date of Service: 01/17/23 Chief Complaint: Nausea, decreased UOP, worsening renal function with elevated K, referred per PCP to ED. HPI Narrative The patient is a 77 y/o F w/ PMHx: Former tobacco use, Asthma, KARMA on BIPAP q HS, Hypothyroidism, HTN, HLD, Anxiety and Depression, Chronic normocytic anemia, IBS following with Dr. Chin, Diabetes mellitus type II, Psoriatic arthritis, Morbid obesity, Hx renal cell carcinoma s/p 11/13/22 left radical nephrectomy who presents to the [facility] ED on 01/17/23 with history of onset of nausea without emesis and decreased urine output over the last 48 hours with PCP evaluation secondary to the symptoms and blood work obtained with potassium level the day prior noted to be 5.5 with a repeat BMP on day of presentation noted to be 5.7 with additionally acute kidney injury with creatinine the day prior 1.87 with a GFR of 28 and upon current presentation increased further to 2.22 notably worsened since her unilateral nephrectomy with at the time of discharge 11/14/2022 BUN/creatinine 16/1.28 prompting PCP referral to the ED for significant concerns for hyperkalemia and acute kidney injury. Patient denies any recent acute illnesses, emesis or diarrhea nor any abdominal cramping or urinary type symptoms. She does report a significant weight loss with her diagnosis of cancer. Work-up in the ED included T98.1, heart rate 71, BP 142/43, respiratory rate 18, 97% on room air, CBC with WC 7.3, hemoglobin 9.8, MCV 91.5, platelet 187 without marked shift, BMP with sodium 137, potassium 5.7, BUN/M[place] 32/2.22, glucose 154, EKG with prominent T waves compared to previous with a junctional rhythm with rate 45. In the ED patient administered hyperkalemia protocol with calcium gluconate, albuterol, dextrose and insulin. [facility] Medical History (Updated 01/18/23 @ 01:[address] Brandi Castellon MD) Anemia Arthritis Asthma BiPAP (biphasic positive airway pressure) dependence Cervical spondylosis Constipation Depression Diabetes Diabetes mellitus, type 2 Fibromyalgia Former smoker GERD (gastroesophageal reflux disease) History of back problems Hypertension IBS (irritable bowel syndrome) Lipodermatosclerosis Psoriatic arthritis Renal cell carcinoma Rosacea Sleep apnea Wears glasses Home Medications calcium carbonate 600 mg calcium (1,500 mg) tablet 600 mg PO DAILY SUPPLEMENT 02/05/18 [History Last Taken Unknown] cetirizine 10 mg tablet 10 mg PO DAILY Check with primary doctor 02/05/18 [History Last Taken 11/13/22] coenzyme Q10 100 mg-vitamin E 10 unit capsule 1 ea PO DAILY Check with primary doctor 02/05/18 [History Last Taken Unknown] insulin glargine 100 unit/mL (3 mL) subcutaneous pen 35 units subcut 1000 diabetes 02/05/18 [History Last Taken Unknown] levocetirizine 5 mg tablet 5 mg PO DAILY Check with primary doctor 02/05/18 [History Last Taken Unknown] levothyroxine 175 mcg tablet 175 mcg PO SUTUWETHFRSA THYROID 02/05/18 [History Last Taken 07/14/20] mometasone-formoterol HFA 200 mcg-5 mcg/actuation aerosol inhaler 2 puff IH DAILY ASTHMA 02/05/18 [History Last Taken 11/13/22] montelukast 10 mg tablet 10 mg PO DAILY Check with primary doctor 02/05/18 [History Last Taken Unknown] multivitamin with iron 1 ea PO DAILY SUPPLEMENT 02/05/18 [History Last Taken Unknown] potassium chloride 20 mEq tablet,extended release(part/cryst) 20 meq PO LUNCH Check with primary doctor 02/05/18 [History Last Taken Unknown] pravastatin 20 mg tablet 20 mg PO QHS CHOLESTEROL 02/05/18 [History Last Taken Unknown] sitagliptin phosphate 100 mg tablet 100 mg PO DAILY DIABETES 02/05/18 [History Last Taken Unknown] albuterol sulfate 90 mcg/actuation aerosol inhaler 6.7 gm IH Q4H PRN PRN Wheezing 12/08/19 [History Last Taken Unknown] amlodipine 5 mg-benazepril 20 mg capsule 1 tab PO DAILY Check with primary doctor 12/08/19 [History Last Taken 11/13/22] carvedilol phosphate 20 mg capsule,ext.[id number] multiphase 20 mg PO DAILY Check with primary doctor 12/08/19 [History Last Taken 11/13/22] furosemide 40 mg tablet 40 mg PO DAILY PRN WATER PILL 06/26/20 [History Last Taken Unknown] omeprazole 40 mg capsule,delayed release 40 mg PO DAILY Check with primary doctor 06/26/20 [History Last Taken 07/14/20] Miralax 1 dose OTHER DAILY Check with primary doctor 10/30/22 [History Last Taken Unknown] acetaminophen 650 mg tablet 650 mg PO BID Check with primary doctor 10/30/22 [History Last Taken Unknown] melatonin 10 mg capsule 10 mg PO DAILY Check with primary doctor 10/30/22 [History Last Taken Unknown] tramadol 50 mg tablet 50 mg PO BID Check with primary doctor 10/30/22 [History Last Taken Unknown] vortioxetine 10 mg tablet (Trintellix) 10 mg PO DAILY Check with primary doctor 10/30/22 [History Last Taken Unknown] docusate sodium 100 mg capsule (Colace) 100 mg PO BID #20 caps 11/13/22 [Rx Last Taken Unknown] oxycodone-acetaminophen 5 mg-325 mg tablet 1 tab PO Q6H PRN pain 7 days #14 tabs 11/13/22 [Rx Last Taken Unknown] [id number]-[id number] 36,000-114,000-180,000 unit capsule,delay rel (Creon) See Rx Instructions PO .COMPLEX #320 caps 12/25/22 [Rx Last Taken Unknown] scopolamine base 1 mg over 3 days transdermal patch 1 patch transdermal Q3D PRN nausea and vomiting #10 ea 01/06/23 [Rx Last Taken Unknown] ondansetron HCl 4 mg tablet 4 mg PO Q6H #60 tabs 01/09/23 [Rx Last Taken Unknown] promethazine 25 mg rectal suppository 25 mg IA Q6H PRN nausea and vomiting #12 ea 01/09/23 [Rx Last Taken Unknown] Allergy/AdvReac Type Severity Reaction Status Date / Time telithromycin [From Ketek] Allergy Severe Nausea/Vom/ Verified 01/17/23 20:50 Diarrhea Penicillins [PCN] Allergy Swelling Verified 01/17/23 20:50 duloxetine [From Cymbalta] AdvReac Other Verified 01/17/23 20:50 Family History Grandfather Arthritis Father Diabetes Grandmother Heart disease Hypertension Surgical History history bilateral cataract surgery History of cholecystectomy History of hysterectomy History of nephrectomy, left History of tubal ligation Social History household members: spouse Smoking Status: Former smoker alcohol intake: never substance use type: does not use ROS ROS Narrative Admission Review of Systems: CONSTITUTIONAL: No weight loss, fever, chills, + weakness or fatigue. HEENT: Eyes: No visual loss, blurred vision, double vision or yellow sclerae. Ears, Nose, Throat: No hearing loss, sneezing, congestion, runny nose or sore throat. SKIN: No rash or itching, lesions, wounds. CARDIOVASCULAR: No chest pain, chest pressure or chest discomfort, palpitations, edema, orthopnea, syncopal events. RESPIRATORY: No shortness of breath, cough or sputum, wheezing, hemoptysis. GASTROINTESTINAL: + anorexia, nausea without vomiting or diarrhea, abdominal pain, melena, BRBPR. GENITOURINARY: + Decreased urine output. No dysuria, frequency, urgency or retention. NEUROLOGICAL: No headache, dizziness, syncope, paralysis, ataxia, numbness or tingling in the extremities, focal weakness, change in bowel or bladder control, seizure. MUSCULOSKELETAL: + muscle, back pain, joint pain or stiffness. HEMATOLOGIC: + anemia, bleeding or bruising. LYMPHATICS: No enlarged nodes. No history of splenectomy. PSYCHIATRIC: No history of depression or anxiety. ENDOCRINOLOGIC: No reports of sweating, cold or heat intolerance. No polyuria or polydipsia. ALLERGIES: + history of asthma, rhinitis. Vital Signs Vital Signs Vital Signs: 01/17/23 20:48 01/17/23 20:53 01/17/23 21:52 Temperature 98.1 F 97.2 F L Temperature Source Temporal Oral Pulse Rate 71 59 L Respiratory Rate 18 18 Respiratory Effort Normal Non-Labored Respiratory Pattern Normal Blood Pressure 142/43 H 141/47 H Blood Pressure Mean 76 78 Pulse Ox 97 97 Oxygen Delivery Method Room Air Room Air Weight Weight: 232 lb Body Mass Index (BMI) 41.1 Physical Exam Narrative Physical Examination: General: Awake, alert, oriented x 3 and cooperative, seated upright in the ED bed, fatigued but no acute distress. Skin: Normal color, normal turgor, no icterus, no cyanosis except bilateral lower extremity distal stasis skin changes. HEENT: AT/NC, EOMI, PERRLA, moderately dry MM, no carotid bruits or JVD noted; however thickened neck makes evaluation difficult. Lungs: Diminished, greater bases, proper effort, no rales, ronchi or wheezing. Heart: Bradycardic with regular rhythm; no gallop, rub audible. Abdomen: Soft, morbidly obese, NTTP, no obvious distention, mildly hyperactive BS, no obvious HSM however habitus makes evaluation difficult. Extremities: No cyanosis, no clubbing, see skin, pedal to mid kearns chronic edema, pitting. Neurological: Patient awake, alert, oriented as noted, cognitive function intact; pupils equally reactive to light and accommodation, cranial nerves II-XII grossly normal, moving all 4 extremities, no focal deficits, strength moderately global decrease secondary to acute presentation complaints. Psychiatric: Affect appears fatigued, no acute evidence of depressive or anxiety feelings. Results Lab / Micro Data Result Diagrams: 01/17/23 21:10 01/17/23 21:10 Labs: Laboratory Results - last 24 hr 01/17/23 21:10: WBC 7.3, RBC 3.41 L, Hgb 9.8 L, Hct 31.2 L, MCV 91.5, MCH 28.7, MCHC 31.4 L, RDW Std Deviation 45.8 H, RDW Coeff of Za 13.5, Plt Count 187, MPV 11.2, Immature Gran % (Auto) 0.100, Neut % (Auto) 61.1, Lymph % (Auto) 21.5, Sequoyah % (Auto) 9.0, Eos % (Auto) 7.6 H, Baso % (Auto) 0.7, Absolute Neuts (auto) 4.4, Absolute Lymphs (auto) 1.56, Nucleated RBC % 0 01/17/23 21:30: POC Glucose 135 H Assessment & Plan Assessment/Plan (1) Acute kidney injury: PLAN: Plan The patient is a 77 y/o F w/ PMHx: Former tobacco use, Asthma, KARMA on BIPAP q HS, Hypothyroidism, HTN, HLD, Anxiety and Depression, Chronic normocytic anemia, IBS following with Dr. Chin, Diabetes mellitus type II, Psoriatic arthritis, Morbid obesity, Hx renal cell carcinoma s/p 11/13/22 left radical nephrectomy who presents to the [facility] ED on 01/17/23 with history of onset of nausea and decreased urine output over the last 48 hours with PCP evaluation secondary to the symptoms and blood work obtained with potassium level the day prior noted to be 5.5 with a repeat BMP on day of presentation noted to be 5.7 with additionally acute kidney injury with creatinine the day prior 1.87 with a GFR of 28 and upon current presentation increased further to 2.22 notably worsened since her unilateral nephrectomy with at the time of discharge 11/14/2022 BUN/creatinine 16/1.28 prompting PCP referral to the ED for significant concerns for hyperkalemia and acute kidney injury. #1. Acute kidney injury: Unclear specific etiology but patient is status post unilateral nephrectomy 11/13/2022 with steadily worsening renal function since, suspect this is multifactorial, admission BUN/Cr 32/2.22, prior baseline creatinine noted to be 1.28 on 11/14/2022 following nephrectomy and noted to steadily be increasing with 12/09/2022 creatinine 1.64 and most recently 01/17/2023 just prior to admission per PCP 2.2. Will admit to PCU given associated hyperkalemia, will continue to judiciously hydrate, hold nephrotoxic medications, obtain renal US, FeNa, consult Dr. Helen Torre Nephrology. #2. Acute Hyperkalemia: In the setting of acute kidney injury likely the etiology, PCP 01/16/2023 potassium 5.5 steadily increasing and upon ED presentation potassium 5.7, patient administered calcium gluconate with EKG not severe appearing, IV insulin with dextrose as well as albuterol inhalation, will maintain on telemetry monitoring, trend potassium function and will dose x1 now with Kayexalate regimen. Nephrology consulted as noted. #3. Bradycardia with AV junctional rhythm: In the ED rhythm and EKG noted to be junctional rhythm with rate 45 with T wave slightly prominent with sinus rhythm noted on prior 11/14/2022 EKG, suspect associated with current electrolyte and function abnormality, will maintain on telemetry, magnesium level pending, holding home Coreg regimen, continue to attempt to correct hyperkalemia and acute kidney injury with interventions as noted above, patient with no associated chest discomfort or dyspnea. #4. Hypothyroidism with recent abnormal thyroid studies outpatient: Upon review of labs PCP did obtain 01/16/2023 TSH noted to be 0.11 with free T4 1.61 consistent with mild hyperthyroidism, possibly iatrogenic, will decrease levothyroxine to 150 mcg daily with recommended follow-up repeat thyroid function studies in 4 to 6 weeks. #5. History renal cell carcinoma: Patient with left renal cell carcinoma status post radical nephrectomy 11/13/2022, progressive worsening of patient's renal function since the nephrectomy, cancer currently considered in remission, encourage continued follow-up with urology/oncology. #6. Chronic normocytic anemia: Admission hemoglobin 9.8, MCV 91.5, baseline hemoglobin appears primarily 10-11 range, will repeat level in a.m. and if trends downward we will investigate further. #7. Diabetes mellitus type II: Hold oral home regimen, continue home insulin regimen however we will continue adjusted dose given recent decreased intake with nausea to avoid hypoglycemia, ADA diet, accu checks w/ ISS. #8. Hypertension: We will continue patient home Norvasc but holding all other nephrotoxic regimen at this time including Lasix and benazepril, as needed IV hydralazine. #9. Hyperlipidemia: We will continue patient on statin therapy. #10. Asthma with allergic rhinitis: We will temporally hold home inhaler and transition the interim to budesonide ATC with as needed albuterol, continue montelukast home regimen. #11. IBS: Patient following with Dr. Chin, will continue Creon as well as bowel regimen. #12. Morbid Obesity: Weight loss and lifestyle changes encourage. #13. GERD: We will maintain on home omeprazole regimen. #14. Psoriatic arthritis: Noted history, not on any chronic steroids or medications per current list, encourage continued outpatient follow-up with rheumatology. #15. Former tobacco use: Encourage continued tobacco cessation. #16. KARMA: BiPAP nightly. #17. DVT prophylaxis: Heparin. #18. CODE status: Patient IK is her and her daughter who are present and living will is currently in place. Discussed CODE status at length including difference between FULL code, DNR-CCA and DNR-CC status. Following discussions about the differences in these status, requested DNR-CCA, on intubation status. She notes that she very specifically does not have her son as her HCPOA as he would not honor her DNR-CCA, no intubation status preference. Advanced Care Planning Face to Face Time: 17 minutes. Admission Evaluation Time spent evaluating chart, patient history, patient evaluation, care planning and discussion with specialists: 75 minutes. Charges/Coding Visit Charges Inpatient E&M: 86859 Init Hosp L3 Procedures Hospitalists Procedures: 37584 Advncd Care Plan 30 Min
[2023-01-17 22:43] LABS: Magnesium 2.2 mg/dL (1.6-2.6); Phosphorus 3.3 mg/dL (2.5-4.9)
[2023-01-17 23:00] VITALS: BP 177/54; PULSE 62; RESP 17; TEMP 36.9; O2SAT 100
[2023-01-17 23:09] VITALS: BMI 40.1
[2023-01-17 23:24] LABS: Anion Gap 6 (5-15); BUN 35 mg/dL (7-18); BUN/Creat Ratio 14.5 RATIO (10-20); Calcium,Total 9.1 mg/dL (8.5-10.1); Chloride 109 mmol/L (98-107); Creatinine, Serum 2.42 mg/dL (0.55-1.02); EST Glomerular Filtration Rate 21 mL/min (>60); Est Glom Filt Rate - Afr Amer 25 mL/min (>60); Estimated Creatinine Clearance 16.36 ml/min; Glucose 141 mg/dL (74-106); Sodium Level 138 mmol/L (136-145)
[2023-01-17] MEDS: 0.9% Normal Saline 1,000 ML 999 ML IV (23:39)
[2023-01-17] MEDS: Sodium Polystyrene Sulfonate 15 GM/60 ML UDC PO (23:41)
[2023-01-17] MEDS: 0.9% Saline Lock 10 ML Syringe IV (23:45)
[2023-01-17] MEDS: MELATONIN 10 MG TABLET PO (23:57)
[2023-01-18] VITALS (7 sets, daily range): BP systolic 153–170; BP diastolic 34–57; PULSE 51–96; RESP 16–18; TEMP 36.7–37.2; O2SAT 97–98; BMI 40.1
[2023-01-18] MEDS: 0.9% Normal Saline 1,000 ML 125 ML IV ×3 (00:46→17:16)
[2023-01-18] MEDS: Insulin Lispro 10 UNIT in Syringe 0 ML 6 UNIT IV (02:12)
[2023-01-18] MEDS: Dextrose 50%-Water 25 GM/50 ML DISP.SYRIN IV ×2 (02:13→03:49)
[2023-01-18] MEDS: Albuterol *CONC* 2.5mg/0.5mL VIAL.NEB. 10 MG INHALATION (02:21)
[2023-01-18] MEDS: 0.9% Saline Lock 10 ML Syringe IV (02:25)
[2023-01-18 04:22] LABS: Anion Gap 6 (5-15); BUN 34 mg/dL (7-18); BUN/Creat Ratio 15.5 RATIO (10-20); Calcium,Total 9.1 mg/dL (8.5-10.1); Chloride 112 mmol/L (98-107); EST Glomerular Filtration Rate 23 mL/min (>60); Est Glom Filt Rate - Afr Amer 28 mL/min (>60); Glucose 46 mg/dL (74-106); Potassium 5.3 mmol/L (3.5-5.1); Sodium Level 141 mmol/L (136-145)
[2023-01-18] MEDS: Levothyroxine 150 MCG Tablet PO (05:37)
--- NOTE | 2023-01-18 05:55 | US_ITS ---
EXAM: US RETROPERITONEAL LIMITED, RENAL CLINICAL INDICATION: MICHAEL. Status post left nephrectomy. TECHNIQUE: Limited grayscale and color Doppler sonographic evaluation of the retroperitoneum was performed. This report was created using [employer] report [employer] technology. COMPARISON: None. FINDINGS: RIGHT KIDNEY: Unremarkable. No hydronephrosis. No shadowing calculus. No perinephric collection is demonstrated. The right kidney measures 10.6 cm in length. LEFT KIDNEY: Left kidney not visualized. Status post left nephrectomy. BLADDER: Bladder is normal. US/Kidney and Bladder IMPRESSION: Normal right kidney. Electronically Signed: Jae Saini MD at 9:09 EST ,
[2023-01-18 06:35] LABS: Urine Sodium 106 mmol/L (Not Establ.)
[2023-01-18 07:01] LABS: Bedside Glucose 85 mg/dL (74-106)
[2023-01-18 08:05] LABS: Absolute Lymphocyte Count 1.29 X10^3/uL (0.83-4.51); Absolute Neutrophil Count 3.3 X10^3/uL (2.0-7.7); Basophil# 0.05 X10^3/uL; Basophil% 0.9 % (0-1); Eosinophil# 0.41 X10^3/uL; Eosinophils% 7.3 % (0-5); Hematocrit 30.5 % (37-47); Hemoglobin 9.6 g/dL (12.0-15.0); Lymphocyte # 1.29 X10^3/ul (0.83-4.51); Mean Corp Hgb Conc 31.5 g/dL (32-36); Mean Corpuscular Hgb 28.9 pg (27.0-32.0); Mean Corpuscular Volume 91.9 fL (81-99); Mean Platelet Vol. 11.4 fl (6.2-12.0); Monocyte# 0.54 X10^3/uL; Monocyte% 9.6 % (0-10); NRBC Flagged by Analyzer 0 % (0-5); Platelet Count 161 K/mm3 (150-450); RBC Distribution Width SD 47.7 fl (35.1-43.9); Red Blood Count 3.32 M/mm3 (4.2-5.4); White Blood Count 5.6 K/mm3 (4.4-11.0)
[2023-01-18 08:36] LABS: AST(SGOT) 14 U/L (15-37); Alanine Aminotransfer ALT/SGPT 19 U/L (13-56); Albumin, Serum 2.8 g/dL (3.2-5.0); Alkaline Phosphatase 56 U/L (45-117); Anion Gap 6 (5-15); BUN 33 mg/dL (7-18); BUN/Creat Ratio 14.9 RATIO (10-20); Calcium,Total 9.4 mg/dL (8.5-10.1); Chloride 109 mmol/L (98-107); Creatinine, Serum 2.21 mg/dL (0.55-1.02); EST Glomerular Filtration Rate 23 mL/min (>60); Est Glom Filt Rate - Afr Amer 28 mL/min (>60); Estimated Creatinine Clearance 17.91 ml/min; Globulin 2.8 g/dL (2.2-4.2); Glucose 140 mg/dL (74-106); Potassium 5.7 mmol/L (3.5-5.1); Protein, Total 5.6 g/dL (6.4-8.2); Sodium Level 138 mmol/L (136-145)
[2023-01-18] MEDS: Glucerna Shake 120 ML LIQUID PO ×2 (09:43→17:20)
[2023-01-18] MEDS: Creon 12,000 unit DR CapSULE PO ×2 (09:43→17:09)
[2023-01-18] MEDS: Pantoprazole Sodium 40 MG Tablet PO (09:49)
[2023-01-18] MEDS: Docusate Sodium 100 MG Capsule PO ×2 (09:49→21:30)
[2023-01-18] MEDS: Montelukast 10 MG Tablet PO (09:49)
[2023-01-18] MEDS: amLODIPine 5 MG Tablet PO (09:49)
[2023-01-18] MEDS: Heparin Injection (Vial) 5,000 UNIT/ML VIAL 5000 UNIT SC ×2 (09:49→21:29)
[2023-01-18] MEDS: Polyethylene Glycol 3350 17 GM PACKET PO (09:57)
[2023-01-18] MEDS: Loratadine 10 MG Tablet PO (09:57)
--- NOTE | 2023-01-18 09:59 | CON.PCM.RE_ITS ---
Assessment & Plan Assessment/Plan (1) Acute kidney injury superimposed on CKD: PLAN: due to prerenal event, poor intake, ACEI. Creatinine 1.2 to 1.6 post nephrectomy. Creatinine on admit 1.8 eGFR 28cc/min. Hold benazepril. (2) CKD (chronic kidney disease) stage 4, GFR 15-29 ml/min: PLAN: Creatinine 1.8 to 2.2 eGFR 24-28cc/min in solitary kidney. Discussed dialysis when eGFR <15cc/min. Follow up in office 1-2 wks (3) Solitary kidney, acquired: PLAN: s/p left nephrectomy 11/13/22 for cancer. Follow up with (4) Clear cell carcinoma of left kidney: PLAN: s/p left nephrectomy (5) Acute hyperkalemia: PLAN: avoid NSAIDs, stop KCL. Hold ACEI,. Dietary counselling for low potassium diet. Kayexalate as needed (6) Weight loss, unintentional: (7) Hypertension: PLAN: optimize BP (8) Diabetes mellitus, type 2: PLAN: resume with ARB therapy when K stable. Stop ACEI for high potassium (9) Pancreatic insufficiency: PLAN: on creon managed by GI (10) Psoriatic arthritis: PLAN: hx tremfya use, off since September 2022. Managed by rheumatology (11) Anemia: PLAN: adequate iron stores, hgb 9.6g HPI Consult Data Date of Consult: 01/19/23 HPI Narrative Reason for Consultation: CKD, hyperkalemia HPI Narrative: EVERTON BEATTY, is a 77 F who presents to ED on 01/17/23 with chronic nausea without emesis and decreased urine output over the last 48 hours. She is admitted for hyperkalemia, bradycardia, MICHAEL on CKD. She has solitary kidney diease with hx renal cell carcinoma s/p left radical nephrectomy on 11/13/22. Creatinine baseline appears to be in the 2 range after nephrectomy with prior creatinine at 0.9 in 2021, 1.28 on 11/14/22, 1.64 on 12/09/22 post nephrectomy. Creatinine on admission 1.87 eGFR 28cc/min peaked at 2.4 now 2.2 EGFR 23cc/min with iv fluids. She has hyperkalemia on potassium supplements at home along with ACEI therapy. She is on lasix prn for leg edema. She admits to eating foods high in potassium. Has not been placed on a diet restriction in the past. Shee has hypertension not well controlled. She has longstanding diabetes for 26 years, on insulin past several years. Sugars have been running low with poor appetite. She has a 100# weight loss history over 1 year and was recently started on creon for pancreatic insufficiency by GI. She has IBS-C. She had bradyarrhythmia with pulse in the 40's to 50's. Potassium 5.7 to 6.0 treated medically. [facility] Medical History (Updated 01/19/23 @ 13:[address] Helen Torre, ) Anemia Arthritis Asthma BiPAP (biphasic positive airway pressure) dependence Cervical spondylosis Constipation Depression Diabetes Diabetes mellitus, type 2 Fibromyalgia Former smoker GERD (gastroesophageal reflux disease) History of back problems Hypertension IBS (irritable bowel syndrome) Lipodermatosclerosis Psoriatic arthritis Renal cell carcinoma Rosacea Sleep apnea Wears glasses Home Medications calcium carbonate 600 mg calcium (1,500 mg) tablet 600 mg PO DAILY SUPPLEMENT 02/05/18 [History Last Taken Unknown] cetirizine 10 mg tablet 10 mg PO DAILY Check with primary doctor 02/05/18 [History Last Taken 11/13/22] coenzyme Q10 100 mg-vitamin E 10 unit capsule 1 ea PO DAILY Check with primary doctor 02/05/18 [History Last Taken Unknown] insulin glargine 100 unit/mL (3 mL) subcutaneous pen 35 units subcut 1000 diabetes 02/05/18 [History Last Taken Unknown] levocetirizine 5 mg tablet 5 mg PO DAILY Check with primary doctor 02/05/18 [History Last Taken Unknown] levothyroxine 175 mcg tablet 175 mcg PO SUTUWETHFRSA THYROID 02/05/18 [History Last Taken 07/14/20] mometasone-formoterol HFA 200 mcg-5 mcg/actuation aerosol inhaler 2 puff IH DAILY ASTHMA 02/05/18 [History Last Taken 11/13/22] montelukast 10 mg tablet 10 mg PO DAILY Check with primary doctor 02/05/18 [History Last Taken Unknown] multivitamin with iron 1 ea PO DAILY SUPPLEMENT 02/05/18 [History Last Taken Unknown] potassium chloride 20 mEq tablet,extended release(part/cryst) 20 meq PO LUNCH Check with primary doctor 02/05/18 [History Last Taken Unknown] pravastatin 20 mg tablet 20 mg PO QHS CHOLESTEROL 02/05/18 [History Last Taken Unknown] sitagliptin phosphate 100 mg tablet 100 mg PO DAILY DIABETES 02/05/18 [History Last Taken Unknown] albuterol sulfate 90 mcg/actuation aerosol inhaler 6.7 gm IH Q4H PRN PRN Wheezing 12/08/19 [History Last Taken Unknown] carvedilol phosphate 20 mg capsule,ext.[id number] multiphase 20 mg PO DAILY Check with primary doctor 12/08/19 [History Last Taken 11/13/22] furosemide 40 mg tablet 40 mg PO DAILY PRN WATER PILL 06/26/20 [History Last Taken Unknown] omeprazole 40 mg capsule,delayed release 40 mg PO DAILY Check with primary doctor 06/26/20 [History Last Taken 07/14/20] Miralax 1 dose OTHER DAILY Check with primary doctor 10/30/22 [History Last Taken Unknown] acetaminophen 650 mg tablet 650 mg PO BID Check with primary doctor 10/30/22 [History Last Taken Unknown] melatonin 10 mg capsule 10 mg PO DAILY Check with primary doctor 10/30/22 [History Last Taken Unknown] tramadol 50 mg tablet 50 mg PO BID Check with primary doctor 10/30/22 [History Last Taken Unknown] vortioxetine 10 mg tablet (Trintellix) 10 mg PO DAILY Check with primary doctor 10/30/22 [History Last Taken Unknown] docusate sodium 100 mg capsule (Colace) 100 mg PO BID #20 caps 11/13/22 [Rx Last Taken Unknown] oxycodone-acetaminophen 5 mg-325 mg tablet 1 tab PO Q6H PRN pain 7 days #14 tabs 11/13/22 [Rx Last Taken Unknown] bczqgt-bcijszni-yczitql 36,000-114,000-180,000 unit capsule,delay rel (Creon) See Rx Instructions PO .COMPLEX #320 caps 12/25/22 [Rx Last Taken Unknown] scopolamine base 1 mg over 3 days transdermal patch 1 patch transdermal Q3D PRN nausea and vomiting #10 ea 01/06/23 [Rx Last Taken Unknown] ondansetron HCl 4 mg tablet 4 mg PO Q6H #60 tabs 01/09/23 [Rx Last Taken Unknown] promethazine 25 mg rectal suppository 25 mg IA Q6H PRN nausea and vomiting #12 ea 01/09/23 [Rx Last Taken Unknown] amlodipine 5 mg tablet 5 mg PO DAILY #30 tabs 01/19/23 [Rx Last Taken Unknown] cefdinir 300 mg capsule 300 mg PO BID #10 caps 01/19/23 [Rx Last Taken Unknown] Allergy/AdvReac Type Severity Reaction Status Date / Time telithromycin [From Ketek] Allergy Severe Nausea/Vom/ Verified 01/17/23 20:50 Diarrhea Penicillins [PCN] Allergy Swelling Verified 01/17/23 20:50 duloxetine [From Cymbalta] AdvReac Other Verified 01/17/23 20:50 Family History Grandfather Arthritis Father Diabetes Grandmother Heart disease Hypertension Surgical History history bilateral cataract surgery History of cholecystectomy History of hysterectomy History of nephrectomy, left History of tubal ligation Social History household members: spouse Smoking Status: Former smoker alcohol intake: never substance use type: does not use ROS Constitutional Constitutional: Reports malaise and weakness; Denies chills or fever(s) Eyes Eyes: Denies loss of vision ENT HEENT: Denies nasal congestion Cardiovascular Cardiovascular: Reports leg edema; Denies diaphoresis or syncope Respiratory/Chest Respiratory/Chest: Denies dry cough or dyspnea on exertion Gastrointestinal Gastrointestinal: Reports anorexia, nausea, weight changes and other Details: weight loss 100#, pancreatic insufficiency, IBS-c ; Denies abdominal pain, diarrhea, hematemesis, hematochezia or melena Genitourinary Genitourinary: Reports change in urinary stream; Denies dysuria or flank pain Neurologic Neurologic: Reports weakness; Denies tremor(s) Psychiatric Psychiatric: Denies anxiety or confusion Endocrine Endocrinology: Reports cold intolerance and fatigue Hematologic/Lymphatic Hematologic/Lymphatic: Denies easy bruising Physical Exam Const alert and oriented x3 General Appearance: well developed Nutritional Appearance: morbidly obese HEENT normocephalic Cardio regular rate GI non-tender and non-distended Auscultation: normoactive bowel sounds Palpation: soft no CVA tenderness Skin Skin Narrative: diabeticorum Neuro CN's II-XII intact bilaterally Psych cooperative Lab / Micro Data Result Diagrams: 01/18/23 07:26 01/19/23 05:20 Labs: Laboratory Results - last 24 hr 01/17/23 21:10: WBC 7.3, RBC 3.41 L, Hgb 9.8 L, Hct 31.2 L, MCV 91.5, MCH 28.7, MCHC 31.4 L, RDW Std Deviation 45.8 H, RDW Coeff of Za 13.5, Plt Count 187, MPV 11.2, Immature Gran % (Auto) 0.100, Neut % (Auto) 61.1, Lymph % (Auto) 21.5, [place] % (Auto) 9.0, Eos % (Auto) 7.6 H, Baso % (Auto) 0.7, Absolute Neuts (auto) 4.4, Absolute Lymphs (auto) 1.56, Nucleated RBC % 0 01/17/23 21:10: Phosphorus 3.3, Magnesium 2.2 01/17/23 21:10: Sodium 138, Potassium 6.0 H*, Chloride 109 H, Carbon Dioxide 23.0, Anion Gap 6, BUN 35 H, Creatinine 2.42 H, Estim Creat Clear Calc 16.36, Est GFR (MDRD) Af Amer 25 L, Est GFR (MDRD) Non-Af 21 L, BUN/Creatinine Ratio 14.5, Glucose 141 H, Calcium 9.1 01/17/23 21:30: POC Glucose 135 H 01/18/23 03:40: Sodium 141, Potassium 5.3 H, Chloride 112 H, Carbon Dioxide 23.0, Anion Gap 6, BUN 34 H, Creatinine 2.20 H, Estim Creat Clear Calc 18.00, Est GFR (MDRD) Af Amer 28 L, Est GFR (MDRD) Non-Af 23 L, BUN/Creatinine Ratio 15.5, Glucose 46 L, Calcium 9.1 01/18/23 05:31: Ur Random Sodium 106, Urine Creatinine 129.00 01/18/23 06:35: POC Glucose 85 01/18/23 07:26: WBC 5.6, RBC 3.32 L, Hgb 9.6 L, Hct 30.5 L, MCV 91.9, MCH 28.9, MCHC 31.5 L, RDW Std Deviation 47.7 H, RDW Coeff of Za 14.0, Plt Count 161, MPV 11.4, Immature Gran % (Auto) 0.200, Neut % (Auto) 59.0, Lymph % (Auto) 23.0, [place] % (Auto) 9.6, Eos % (Auto) 7.3 H, Baso % (Auto) 0.9, Absolute Neuts (auto) 3.3, Absolute Lymphs (auto) 1.29, Nucleated RBC % 0 01/18/23 07:26: Sodium 138, Potassium 5.7 H, Chloride 109 H, Carbon Dioxide 23.0, Anion Gap 6, BUN 33 H, Creatinine 2.21 H, Estim Creat Clear Calc 17.91, Est GFR (MDRD) Af Amer 28 L, Est GFR (MDRD) Non-Af 23 L, BUN/Creatinine Ratio 14.9, Glucose 140 H, Calcium 9.4, Total Bilirubin 0.50, AST 14 L, ALT 19, Alkaline Phosphatase 56, Total Protein 5.6 L, Albumin 2.8 L, Globulin 2.8, Albumin/Globulin Ratio 1.0 Radiology Impression Renal Ultrasound 01/18/23 05:55 IMPRESSION: Normal right kidney. Electronically Signed: Jae Saini MD at 9:09 EST ,
--- NOTE | 2023-01-18 12:13 | PN_ITS ---
Subjective Subjective Patient seen and examined. She had no active complaints today but says she was not able to get enough sleep because her bed is uncomfortable. Review of systems otherwise negative. She has remained hemodynamically stable. Potassium is trended down to 5.3 this morning. Objective Data Objective Data Vital Signs: Vital Signs Temp Pulse Resp BP Pulse Ox O2 Del Method 98.3 F 61 16 157/43 H 98 Room Air 01/18/23 09:38 01/18/23 09:38 01/18/23 09:38 01/18/23 09:38 01/18/23 09:38 01/18/23 09:38 Oxygen Delivery Method Room Air Weight: 226 lb 13.69 oz Body Mass Index (BMI) 40.1 Intake & Output: Intake and Output for Last 24 Hours 01/16/23 01/17/23 01/18/23 23:59 23:59 23:59 Intake Total 2240 / 2240 Output Total 150 / 150 Balance 2089 / 2089 Lab / Micro Data Result Diagrams: 01/18/23 07:26 01/18/23 07:26 Labs: Laboratory Results - last 24 hr 01/17/23 21:10: WBC 7.3, RBC 3.41 L, Hgb 9.8 L, Hct 31.2 L, MCV 91.5, MCH 28.7, MCHC 31.4 L, RDW Std Deviation 45.8 H, RDW Coeff of Za 13.5, Plt Count 187, MPV 11.2, Immature Gran % (Auto) 0.100, Neut % (Auto) 61.1, Lymph % (Auto) 21.5, Mon o % (Auto) 9.0, Eos % (Auto) 7.6 H, Baso % (Auto) 0.7, Absolute Neuts (auto) 4.4, Absolute Lymphs (auto) 1.56, Nucleated RBC % 0 01/17/23 21:10: Phosphorus 3.3, Magnesium 2.2 01/17/23 21:10: Sodium 138, Potassium 6.0 H*, Chloride 109 H, Carbon Dioxide 23.0, Anion Gap 6, BUN 35 H, Creatinine 2.42 H, Estim Creat Clear Calc 16.36, Est GFR (MDRD) Af Amer 25 L, Est GFR (MDRD) Non-Af 21 L, BUN/Creatinine Ratio 14.5, Glucose 141 H, Calcium 9.1 01/17/23 21:30: POC Glucose 135 H 01/18/23 03:40: Sodium 141, Potassium 5.3 H, Chloride 112 H, Carbon Dioxide 23.0 , Anion Gap 6, BUN 34 H, Creatinine 2.20 H, Estim Creat Clear Calc 18.00, Est GFR (MDRD) Af Amer 28 L, Est GFR (MDRD) Non-Af 23 L, BUN/Creatinine Ratio 15.5, Glucose 46 L, Calcium 9.1 01/18/23 05:31: Ur Random Sodium 106, Urine Creatinine 129.00 01/18/23 06:35: POC Glucose 85 01/18/23 07:26: WBC 5.6, RBC 3.32 L, Hgb 9.6 L, Hct 30.5 L, MCV 91.9, MCH 28.9, MCHC 31.5 L, RDW Std Deviation 47.7 H, RDW Coeff of Za 14.0, Plt Count 161, MPV 11.4, Immature Gran % (Auto) 0.200, Neut % (Auto) 59.0, Lymph % (Auto) 23.0, [place] % (Auto) 9.6, Eos % (Auto) 7.3 H, Baso % (Auto) 0.9, Absolute Neuts (auto) 3.3, Absolute Lymphs (auto) 1.29, Nucleated RBC % 0 01/18/23 07:26: Sodium 138, Potassium 5.7 H, Chloride 109 H, Carbon Dioxide 23.0, Anion Gap 6, BUN 33 H, Creatinine 2.21 H, Estim Creat Clear Calc 17.91, Est GFR (MDRD) Af Amer 28 L, Est GFR (MDRD) Non-Af 23 L, BUN/Creatinine Ratio 14.9, Glucose 140 H, Calcium 9.4, Total Bilirubin 0.50, AST 14 L, ALT 19, Alkaline Phosphatase 56, Total Protein 5.6 L, Albumin 2.8 L, Globulin 2.8, Albumin/Globulin Ratio 1.0 Radiography Diagnostic Testing: Radiology Impression Renal Ultrasound 01/18/23 05:55 IMPRESSION: Normal right kidney. Electronically Signed: Jae Saini MD at 9:09 EST , Physical Exam Const alert, oriented x3 and no apparent distress Constitutional Narrative: obese General Appearance: cooperative HEENT normocephalic, head/scalp atraumatic and moist oral mucous membranes Eyes EOMs intact bilaterally Neck supple Lymph Lymphatic: no lymphadenopathy noted Resp normal respiratory effort, normal air movement and clear to auscultation bilaterally Cardio regular rate, regular rhythm, S1 normal heart sound, S2 normal heart sound and no murmurs GI normal to inspection, nondistended, normoactive bowel sounds, soft to palpation, non-tender and non-distended Extremity normal capillary refill, no clubbing, cyanosis or edema and no calf tenderness Skin General Skin Exam: no breakdown Neuro CN's II-XII intact bilaterally, no focal motor deficits and no sensory deficits noted Motor Exam: strength 5/5 throughout Psych thought process normal Appearance: appropriate Assessment & Plan Assessment/Plan (1) Acute kidney injury: (2) Acute hyperkalemia: PLAN: Plan #Hyperkalemia * improving. Potassium down to 5.7 this morning. It was 6 on admission. * Will give Kayexalate. Hold all nephrotoxic medications. * Nephrology on board. * #MICHAEL on CKD * Creatinine is 2.21. Was 2.42 on admission. Continue gentle hydration with IV fluids and trend. * #History of left renal carcinoma s/p left nephrectomy * Now has solitary kidney. Will monitor. * #Type 2 diabetes mellitus: * REESE inhibitor discontinued on account of elevated potassium. * Insulin sliding scale. Accu-Cheks ACHS. * Also on sitagliptin and Lantus 35 units daily. #Pancreatic insufficiency: On Creon #Hypothyroidism: * On Synthroid * TSH was low and normal free T4; Synthroid decreased to 150mcg daily. * to have follow up TFTs in 4-6 weeks #Hypertension: On carvedilol; this was held due to bradycardia #Bradycardia: had bradycardia in the ED with HR of 45. coreg on hold. Will monitor. #Hyperlipidemia: On statin #GERD: On PPI #Asthma: on breathing treatment with bronchodilators. On montelukast #KARMA; on BIPAP DVT prophylaxis: heparin Charges/Coding Visit Charges Inpatient E&M: 10339 Subs Hosp L2
--- NOTE | 2023-01-18 12:30 | NURSING ---
This RN went in to give pt creon and pt stated she had already taken her creon from home. Pt stated her family had been in and brought in her bottle of creon from home. Pt educated on the importance of not taking own meds from home when in the hospital. Pt apologetic and voiced understanding. Pts home creon locked up.
--- NOTE | 2023-01-18 12:40 | CASEMGMT ---
CHRISTIAN VILLA DC Planning Assessment: Face to Face with patient for initial transition planning/care coordination assessment.? CHRISTIAN VILLA introduced self and role at [facility], pt voices understanding. Pt alert, oriented x4 and agreeable to participating in assessment.? Care providers, pharmacy,?and demographics verified. Admitting Dx: MICHAEL, hyperkalemia PCP: Zakia Specialists: Giuseppe (GI), Bhupendra (nephrology), Monika (dermatology) Preferred Pharmacy: [facility] Insurance: [facility] A/B, [employer] Prescription Benefit:?yes Living Will/HPOA: Yes, HPOA Jose (spouse), Daughter Char (HPOA #2), and Tish (HPOA #3) LNOK: spouse Jose Living Arrangements: Pt lives in a single story home with three steps to enter with bilat handrail with her spouse. Pt states she is independent with ADLs including selfcare and household tasks but does state she has difficulty preparing meals when she does not feel well. States he is not able to cook and her children do not live close enough to provide routine assistance. Pt expressed interest in [facility] and a pamphlet was provided to her. Transportation: Pt drives. Her spouse does not but her daughter is able to assist if needed DME: uses a cane routinely to ambulate, uses a walker to get up and down the one step between her kitchen and living room. Bathroom is equiped with a built in bench and is a walk in shower with a hand held shower head and with grab bars. Toilet is a high rise toilet. Pt also has a lift chair, bipap (from [email or web address]), and a glucometer but pt states she does not check her glucose regularly due to not wanting to prick her fingers. States she does not qualify for the continuous glucose monitoring system due to her glucose being controlled. SNF/HHC: Pt denies any previous providers. Plan: Pt plans to return home at discharge with family support. Pt denies any further needs or concerns at this time. Will continue to monitor and assist with further dc needs as identified. Rocio Ponce RN CM
[2023-01-18] MEDS: Insulin Glargine-YFGN 100 UNIT/ML Pen 35 UNIT SC (12:54)
[2023-01-18 13:15] LABS: Bedside Glucose 167 mg/dL (74-106)
[2023-01-18] MEDS: Sodium Polystyrene Sulfonate 15 GM/60 ML UDC 30 GM PO (15:23)
[2023-01-18] MEDS: Ondansetron 4 MG/2 ML Vial IV (17:15)
[2023-01-18 17:46] LABS: Bedside Glucose 143 mg/dL (74-106)
[2023-01-18] MEDS: Budesonide Respules 0.5 MG/2 ML AMPUL.NEB. INHALATION (20:06)
[2023-01-18] MEDS: MELATONIN 10 MG TABLET PO (21:30)
[2023-01-18 22:06] LABS: Bedside Glucose 156 mg/dL (74-106)
[2023-01-19] MEDS: 0.9% Normal Saline 1,000 ML 125 ML IV (00:23)
[2023-01-19 03:25] VITALS: BP 169/63; PULSE 79; RESP 18; TEMP 36.6; O2SAT 100
[2023-01-19 03:30] VITALS: BP 169/63; PULSE 79
[2023-01-19] MEDS: 0.9% Saline Lock 10 ML Syringe IV (03:30)
[2023-01-19] MEDS: hydrALAZINE 20 MG/ML Vial 10 MG IV (03:30)
[2023-01-19 05:15] VITALS: BMI 41.5
[2023-01-19] MEDS: Levothyroxine 150 MCG Tablet PO (06:37)
[2023-01-19 06:55] LABS: Bedside Glucose 82 mg/dL (74-106)
[2023-01-19 07:47] VITALS: PULSE 82; RESP 16; O2SAT 94
[2023-01-19] MEDS: Budesonide Respules 0.5 MG/2 ML AMPUL.NEB. INHALATION (07:47)
[2023-01-19 07:58] LABS: AST(SGOT) 21 U/L (15-37); Alanine Aminotransfer ALT/SGPT 21 U/L (13-56); Albumin, Serum 2.7 g/dL (3.2-5.0); Alkaline Phosphatase 56 U/L (45-117); Anion Gap 7 (5-15); BUN 24 mg/dL (7-18); BUN/Creat Ratio 14.2 RATIO (10-20); Calcium,Total 8.5 mg/dL (8.5-10.1); Chloride 113 mmol/L (98-107); Creatinine, Serum 1.69 mg/dL (0.55-1.02); EST Glomerular Filtration Rate 31 mL/min (>60); Est Glom Filt Rate - Afr Amer 38 mL/min (>60); Estimated Creatinine Clearance 23.43 ml/min; Ferritin 27 ng/mL (8-252); Globulin 2.8 g/dL (2.2-4.2); Glucose 71 mg/dL (74-106); Iron 96 ug/dL (50-170); Potassium 4.7 mmol/L (3.5-5.1); Protein, Total 5.5 g/dL (6.4-8.2); Sodium Level 143 mmol/L (136-145)
[2023-01-19 08:21] VITALS: BP 188/53; PULSE 107; RESP 16; TEMP 36.9; O2SAT 99
[2023-01-19] MEDS: Glucerna Shake 120 ML LIQUID PO (08:35)
[2023-01-19] MEDS: Creon 12,000 unit DR CapSULE PO (08:35)
[2023-01-19] MEDS: amLODIPine 5 MG Tablet PO (08:37)
[2023-01-19] MEDS: Pantoprazole Sodium 40 MG Tablet PO (08:38)
[2023-01-19] MEDS: Docusate Sodium 100 MG Capsule PO (08:38)
[2023-01-19] MEDS: Montelukast 10 MG Tablet PO (08:38)
[2023-01-19] MEDS: Insulin Glargine-YFGN 100 UNIT/ML Pen 35 UNIT SC (08:39)
[2023-01-19] MEDS: Loratadine 10 MG Tablet PO (08:47)
[2023-01-19] MEDS: Polyethylene Glycol 3350 17 GM PACKET PO (08:48)
[2023-01-19] MEDS: Ondansetron 4 MG/2 ML Vial IV (08:50)
--- NOTE | 2023-01-19 11:04 | DS.PCM_ITS ---
Providers Date of Admission: 01/17/23 Date of Discharge: 01/19/23 Primary Care Physician: Dr. Jass Koehler MD Consultations 01/17/23 22:53 Consult: Nephrology Routine Consulting Provider: Helen Torre Reason for Consult: MICHAEL, worsening fx since Nephrectomy for CA EMERGENT Consult: No MD Notified: Yes Date Notified: 01/17/23 Time Notified: 22:23 Method of Notification: Text Reason For Visit: HYPERKALEMIA, MICHAEL, JUNCTIONAL RHYTHM Diagnosis Discharge Diagnosis (1) Acute kidney injury: Status: Acute Code(s): N17.9 - Acute kidney failure, unspecified (2) Acute hyperkalemia: Status: Acute Code(s): E87.5 - Hyperkalemia Plan #Hyperkalemia * improving. Potassium down to 5.7 this morning. It was 6 on admission. * Will give Kayexalate. Hold all nephrotoxic medications. * Nephrology on board. * #MICHAEL on CKD * Creatinine is 2.21. Was 2.42 on admission. Continue gentle hydration with IV fluids and trend. * #History of left renal carcinoma s/p left nephrectomy * Now has solitary kidney. Will monitor. * #Type 2 diabetes mellitus: * REESE inhibitor discontinued on account of elevated potassium. * Insulin sliding scale. Accu-Cheks ACHS. * Also on sitagliptin and Lantus 35 units daily. #Pancreatic insufficiency: On Creon #Hypothyroidism: * On Synthroid * TSH was low and normal free T4; Synthroid decreased to 150mcg daily. * to have follow up TFTs in 4-6 weeks #Hypertension: On carvedilol; this was held due to bradycardia #Bradycardia: had bradycardia in the ED with HR of 45. coreg on hold. Will monitor. #Hyperlipidemia: On statin #GERD: On PPI #Asthma: on breathing treatment with bronchodilators. On montelukast #KARMA; on BIPAP DVT prophylaxis: heparin Medications at Discharge Home Medications calcium carbonate 600 mg calcium (1,500 mg) tablet 600 mg PO DAILY SUPPLEMENT 02/05/18 cetirizine 10 mg tablet 10 mg PO DAILY Check with primary doctor 02/05/18 coenzyme Q10 100 mg-vitamin E 10 unit capsule 1 ea PO DAILY Check with primary doctor 02/05/18 insulin glargine 100 unit/mL (3 mL) subcutaneous pen 35 units subcut 1000 diabetes 02/05/18 levocetirizine 5 mg tablet 5 mg PO DAILY Check with primary doctor 02/05/18 levothyroxine 175 mcg tablet 175 mcg PO SUTUWETHFRSA THYROID 02/05/18 mometasone-formoterol HFA 200 mcg-5 mcg/actuation aerosol inhaler 2 puff IH DAILY ASTHMA 02/05/18 montelukast 10 mg tablet 10 mg PO DAILY Check with primary doctor 02/05/18 multivitamin with iron 1 ea PO DAILY SUPPLEMENT 02/05/18 potassium chloride 20 mEq tablet,extended release(part/cryst) 20 meq PO LUNCH Check with primary doctor 02/05/18 pravastatin 20 mg tablet 20 mg PO QHS CHOLESTEROL 02/05/18 sitagliptin phosphate 100 mg tablet 100 mg PO DAILY DIABETES 02/05/18 albuterol sulfate 90 mcg/actuation aerosol inhaler 6.7 gm IH Q4H PRN PRN Wheezing 12/08/19 carvedilol phosphate 20 mg capsule,[id number] multiphase 20 mg PO DAILY Check with primary doctor 12/08/19 furosemide 40 mg tablet 40 mg PO DAILY PRN WATER PILL 06/26/20 omeprazole 40 mg capsule,delayed release 40 mg PO DAILY Check with primary doctor 06/26/20 Miralax 1 dose OTHER DAILY Check with primary doctor 10/30/22 acetaminophen 650 mg tablet 650 mg PO BID Check with primary doctor 10/30/22 melatonin 10 mg capsule 10 mg PO DAILY Check with primary doctor 10/30/22 tramadol 50 mg tablet 50 mg PO BID Check with primary doctor 10/30/22 vortioxetine 10 mg tablet (Trintellix) 10 mg PO DAILY Check with primary doctor 10/30/22 docusate sodium 100 mg capsule (Colace) 100 mg PO BID #20 caps 11/13/22 oxycodone-acetaminophen 5 mg-325 mg tablet 1 tab PO Q6H PRN pain 7 days #14 tabs 11/13/22 [id number] 36,000-114,000-180,000 unit capsule,delay rel (Creon) See Rx Instructions PO .COMPLEX #320 caps 12/25/22 scopolamine base 1 mg over 3 days transdermal patch 1 patch transdermal Q3D PRN nausea and vomiting #10 ea 01/06/23 ondansetron HCl 4 mg tablet 4 mg PO Q6H #60 tabs 03/02/23 promethazine 25 mg rectal suppository 25 mg [place] Q6H PRN nausea and vomiting #12 ea 01/09/23 amlodipine 5 mg tablet 5 mg PO DAILY #30 tabs 01/19/23 cefdinir 300 mg capsule 300 mg PO BID #10 caps 01/19/23 Hospital Course Operations None Procedures None Summary of Care Provided Minutes Spent on Discharge: 45 Hospital Course: Patient is a 77-year-old female with past medical history as outlined was admitted through the ED on account of abnormal labs. She had can see her PCP with nausea and decreased urine output the day before admission and labs done showed potassium of 5.5 with elevated creatinine. She was therefore called by her PCP to come into the ED. When she came into the ED repeat potassium was 5.7 and a creatinine had gone up to 2.2. She had a history of renal cell carcinoma and is s/p nephrectomy. She was admitted and managed for hyperkalemia and MICHAEL on CKD. She was hydrated with IV fluids. She was also given Kayexalate. Nephrology reviewed her. She had an ultrasound which showed normal right kidney and s/p left nephrectomy. Her creatinine trended downwards and hyperkalemia resolved. She remained stable and was discharged home on 01/19/2023. She is follow-up with her primary care doctor and with nephrology. Of note her REESE inhibitor was discontinued on account of hyperkalemia. Patient seen and examined prior to discharge. She felt well and had no active complaints. Review of systems otherwise negative. Labs and vitals reviewed. Medication reviewed and reconciled. Physical Exam Const alert, oriented x3 and no apparent distress Constitutional Narrative: obese General Appearance: cooperative, comfortable and well kempt Orientation / Consciousness: awake Exam Limitations: no limitations HEENT normocephalic, head/scalp atraumatic, hearing grossly normal bilaterally and moist oral mucous membranes Mouth: oral and palatal mucosa normal Eyes PERRL, EOMs intact bilaterally and conjunctivae normal Neck no lymphadenopathy, supple and no JVD Lymph Lymphatic: no lymphadenopathy noted Resp normal respiratory effort, normal air movement and clear to auscultation bilaterally Cardio regular rate, regular rhythm, S1 normal heart sound, S2 normal heart sound and no murmurs GI normal to inspection, nondistended, normoactive bowel sounds, soft to palpation, non-tender and non-distended Extremity normal to inspection, full ROM, normal capillary refill, no clubbing, cyanosis or edema and no calf tenderness Skin no rashes or lesions noted General Skin Exam: no breakdown Neuro oriented x3, CN's II-XII intact bilaterally, moves all extremities, no focal motor deficits and no sensory deficits noted Sensorium / Orientation: awake and alert Motor Exam: strength 5/5 throughout Psych thought process normal Appearance: appropriate Medical Records Data Medical Nutrition Assessment Dietitian: Malnutrition Criteria Met Start: 01/18/23 12:37 Freq: Status: Active Protocol: Document 01/18/23 12:37 AG (Rec: 01/18/23 12:37 [id number]) Nutrition Malnutrition Evidence of Malnutrition Exists Yes Malnutrition (severe): Chronic Evidenced By Suboptimal Energy Intake ( Severe),Weight Loss (Severe) Clinical Problem Chronic Disease or Condition Related Malnutrition Etiology chronic severe malnutrition related to inadequate energy intake w/ increased energy needs d/t renal cell carcinoma Signs/Symptoms as evidenced by unintentional 105#/31% wt loss < 1 year; estimated PO intake meeting < 75% of estimated energy needs> 3 months Status Active Problem Recommendation Dietitian Recommendations/Changes Will adjust diet to cardiac, 1800 calorie controlled, potassium restricted; okay to offer Glucerna 120mL TID if PO intake is poor at meals. Will monitor renal labs and PO intake and adjust diet as indicated. Weight / BMI Weight Weight: 234 lb 12.677 oz Body Mass Index (BMI) 41.5 ABG / Lab / Microbiology Data Result Diagrams: 01/18/23 07:26 01/19/23 05:20 Laboratory: Laboratory Results - last 24 hr 01/18/23 12:53: POC Glucose 167 H 01/18/23 17:12: POC Glucose 143 H 01/18/23 21:28: POC Glucose 156 H 01/19/23 05:20: Sodium 143, Potassium 4.7, Chloride 113 H, Carbon Dioxide 23.0, Anion Gap 7, BUN 24 H, Creatinine 1.69 H, Estim Creat Clear Calc 23.43, Est GFR (MDRD) Af Amer 38 L, Est GFR (MDRD) Non-Af 31 L, BUN/Creatinine Ratio 14.2, Glucose 71 L, Calcium 8.5, Iron 96, Ferritin 27, Total Bilirubin 0.60, AST 21, ALT 21, Alkaline Phosphatase 56, Total Protein 5.5 L, Albumin 2.7 L, Globulin 2.8, Albumin/Globulin Ratio 1.0 01/19/23 06:36: POC Glucose 82 D/C Instructions Discharge Diet: Low fat / Low cholesterol Discharge Activity: Return to Normal Activity Weight Bearing Status: Weight bearing as tolerated Call your doctor if you observe: Fever of 101 or Higher, Shortness of breath, Dizziness, Swelling in the ankles, Chest pain and Increased palpitations (irregular heartbeat) Meaningful Use Info Meaningful Use Diagnoses (Choose all that apply): None applicable Discharge Plan Admission Admit Date/Time: 01/17/23 22:20 Primary Reason for Your Visit: hyperkalemia Attending Provider: Miryam Lacey Primary Care Provider: Jass Koehler Consulting Providers: Helen Torre ; Brandi Castellon Instructions Patient Instructions: Hyperkalemia Ch Dc, ED Hyperkalemia Discharge Orders/Prescriptions Prescriptions: New amlodipine 5 mg Tablet 5 mg PO DAILY Qty: 30 2RF cefdinir 300 mg capsule 300 mg PO BID Qty: 10 0RF Continued omeprazole 40 mg capsule,delayed release(DR/EC) 40 mg PO DAILY levothyroxine 175 MCG tablet 175 mcg PO SUTUWETHFRSA cetirizine 10 MG tablet 10 mg PO DAILY calcium carbonate 600 MG tablet 600 mg PO DAILY potassium chloride 20 MEQ tablet,ER particles/crystals 20 meq PO LUNCH montelukast 10 MG tablet 10 mg PO DAILY pravastatin 20 MG tablet 20 mg PO QHS multivitamin with iron 1 EACH tablet 1 ea PO DAILY sitagliptin phosphate 100 MG tablet 100 mg PO DAILY insulin glargine 100 UNITS/ML insulin pen 35 units subcut 1000 levocetirizine 5 MG tablet 5 mg PO DAILY mometasone-formoterol 8.8 GM HFA aerosol inhaler 2 puff IH DAILY coenzyme [id number] 1 EACH capsule 1 ea PO DAILY furosemide 40 mg tablet 40 mg PO DAILY PRN (Reason: WATER PILL) albuterol sulfate 6.7 GM HFA aerosol inhaler 6.7 gm IH Q4H PRN PRN (Reason: Wheezing) carvedilol phosphate 20 MG capsule, ER multiphase 24 hr 20 mg PO DAILY acetaminophen 650 mg Tablet 650 mg PO BID tramadol 50 mg tablet 50 mg PO BID Label Comments: take 1 tablet by mouth twice a day melatonin 10 mg Capsule 10 mg PO DAILY Trintellix 10 mg tablet 10 mg PO DAILY Label Comments: take 1 tablet by mouth once daily Miralax 1 dose OTHER DAILY oxycodone-acetaminophen 5-325 mg tablet 1 tab PO Q6H PRN (Reason: pain) 7 Days Qty: 14 0RF docusate sodium [Colace] 100 mg capsule 100 mg PO BID Qty: 20 0RF Creon 36,000-114,000- 180,000 unit capsule,delayed release(DR/EC) See Rx Instructions PO .COMPLEX Qty: 320 0RF Rx Instructions: take 1-2 with snacks and 2-3 with meals scopolamine base 1 mg over 3 days patch 3 day 1 patch transdermal Q3D PRN (Reason: nausea and vomiting) Qty: 10 0RF promethazine 25 mg suppository 25 mg [place] Q6H PRN (Reason: nausea and vomiting) Qty: 12 2RF ondansetron HCl 4 mg tablet 4 mg PO Q6H Qty: 60 2RF Discontinued amlodipine-benazepril 5 MG-20 MG capsule 1 tab PO DAILY Referrals / Follow Up: Helen Torre DO [Med Staff - Consulting] - Within 1 Week Jass Koehler MD [Primary Care Provider] - Within 2 Weeks Disposition Disposition (needs filled in before D/C Order can be placed): Home, Self Care Charges/Coding Visit Charges Inpatient E&M: 13161 Disch Hosp >30min
[2023-01-19 11:49] VITALS: BP 142/79; PULSE 96
[2023-01-19] MEDS: Cefdinir 300 MG Capsule PO (13:24)
[2023-01-20 08:05] LABS: Bedside Glucose 137 mg/dL (74-106)
[2023-01-20 08:05] LABS: Bedside Glucose 37 mg/dL (74-106)
== END 2023-01-19 14:29 | disposition home or self-care (01) | DRG 684 ==
LOC: ED 22:01 → PCU 23:41
PROVIDERS: Internal Medicine Nephrology; Admitting Provider Family Medicine; Emergency Provider Emergency Medicine; PCP Family Medicine; Visit Provider Student in an Organized Health Care Education/Training Program
DX: N17.9 Acute kidney failure, unspecified (principal); E10.40 Type 1 diabetes mellitus with diabetic neuropathy, unspecified; E10.22 Type 1 diabetes mellitus with diabetic chronic kidney disease; N18.4 Chronic kidney disease, stage 4 (severe); Z79.4 Long term (current) use of insulin; L40.50 Arthropathic psoriasis, unspecified; K21.9 Gastro-esophageal reflux disease without esophagitis; E05.90 Thyrotoxicosis, unspecified without thyrotoxic crisis or storm; M79.7 Fibromyalgia; J45.909 Unspecified asthma, uncomplicated; K58.9 Irritable bowel syndrome, unspecified; I12.9 Hypertensive chronic kidney disease with stage 1 through stage 4 chronic kidney disease, or unspecified chronic kidney disease; E87.5 Hyperkalemia; G47.33 Obstructive sleep apnea (adult) (pediatric); E78.5 Hyperlipidemia, unspecified; E03.9 Hypothyroidism, unspecified; R00.1 Bradycardia, unspecified; Z87.891 Personal history of nicotine dependence; Z90.5 Acquired absence of kidney; Z85.528 Personal history of other malignant neoplasm of kidney
CPT/HCPCS: 36415; 76770; 80048; 80053; 80061; 81001; 82043; 82306; 82570; 82728; 82962; 83036; 83540; 83735; 83970; 84100; 84156; 84300; 84439; 84443; 85025; 93005; 94640; 94668; 97802; 99285; J7030; A4216; J0610; J2405

== ENCOUNTER → 2023-01-17 | Outpatient (CLI) | payer MEDICARE, OTHER, SELFPAY ==
[2023-01-17 16:38] LABS: Mucous, Urine 0 SEEN /hpf (<or=2+); Squamous Epithelial Cells - UA 0 SEEN /hpf (5-10)
[2023-01-17 17:52] LABS: Color, Urine Yellow (Yellow); Glucose, Dipstick Normal (Normal); Ketone-Dipstick Negative (Negative); Leukocyte Esterase-Dipstick 500 /ul (Negative); Nitrite-Dipstick Negative (Negative); Occult Blood-Urine 25 /ul (Negative); Protein-Dipstick 30 mg/dl (Negative); Urine Bilirubin Dipstick Negative (Negative); Urine Clarity Cloudy (Clear); Urine Urobilinogen Normal (Normal)
[2023-01-17 18:01] LABS: Bacteria 3+ /hpf (None Seen); Red Blood Cells-Urine 0-5 SEEN /hpf (0-5); White Blood Cells 10-25 SEEN /hpf (0-5)
[2023-01-17 18:16] LABS: Anion Gap 6 (5-15); BUN 32 mg/dL (7-18); BUN/Creat Ratio 14.4 RATIO (10-20); Calcium,Total 9.2 mg/dL (8.5-10.1); Chloride 107 mmol/L (98-107); Creatinine, Serum 2.22 mg/dL (0.55-1.02); EST Glomerular Filtration Rate 23 mL/min (>60); Est Glom Filt Rate - Afr Amer 28 mL/min (>60); Glucose 154 mg/dL (74-106); Potassium 5.7 mmol/L (3.5-5.1); Sodium Level 137 mmol/L (136-145)
[2023-01-17 18:28] LABS: Microalbumin:Creatinine Ratio 188.1 mg/g CRE (<30 mg/g CRE); Protein, Urine (Random) 33.6 mg/dL (<11.9); Protein:Creat Ratio 378 mg/g CRE (0-200)
== END | disposition home or self-care (01) ==
PROVIDERS: PCP Family Medicine; Referring Provider Family Medicine; Visit Provider Family Medicine
DX: E11.22 Type 2 diabetes mellitus with diabetic chronic kidney disease (principal); N18.30 Chronic kidney disease, stage 3 unspecified; E87.5 Hyperkalemia
CPT/HCPCS: 36415; 80048; 81001; 82043; 82570; 84156

== ENCOUNTER → 2023-01-21 | Outpatient (CLI) | payer MEDICARE, OTHER, SELFPAY ==
[2023-01-21 15:25] LABS: Albumin, Serum 2.9 g/dL (3.2-5.0); BUN 25 mg/dL (7-18); Chloride 109 mmol/L (98-107); Creatinine, Serum 1.78 mg/dL (0.55-1.02); EST Glomerular Filtration Rate 29 mL/min (>60); Est Glom Filt Rate - Afr Amer 36 mL/min (>60); Glucose 104 mg/dL (74-106); Phosphorus 3.8 mg/dL (2.5-4.9); Potassium 4.9 mmol/L (3.5-5.1); Sodium Level 140 mmol/L (136-145)
== END | disposition home or self-care (01) ==
LOC: LAB.FUTURE 12:19 → MFPLAB 13:32
PROVIDERS: PCP Family Medicine; Visit Provider Internal Medicine Nephrology
DX: N17.9 Acute kidney failure, unspecified (principal)
CPT/HCPCS: 36415; 80069

== ENCOUNTER → 2023-02-11 | Outpatient (CLI) | payer MEDICARE, OTHER, SELFPAY ==
[2023-02-11 18:56] LABS: Anion Gap 7 (5-15); BUN 32 mg/dL (7-18); Calcium,Total 8.9 mg/dL (8.5-10.1); Chloride 107 mmol/L (98-107); Creatinine, Serum 2.29 mg/dL (0.55-1.02); EST Glomerular Filtration Rate 22 mL/min (>60); Est Glom Filt Rate - Afr Amer 27 mL/min (>60); Glucose 144 mg/dL (74-106); Potassium 5.6 mmol/L (3.5-5.1); Sodium Level 136 mmol/L (136-145)
== END | disposition home or self-care (01) ==
LOC: MFPLAB 16:28
PROVIDERS: PCP Family Medicine; Referring Provider Family Medicine; Visit Provider Family Medicine
DX: I10 Essential (primary) hypertension (principal); E87.5 Hyperkalemia
CPT/HCPCS: 36415; 80048

== ENCOUNTER → 2023-02-12 | Outpatient (CLI) | payer MEDICARE, OTHER, SELFPAY ==
[2023-02-12 15:58] LABS: Anion Gap 2 (5-15); BUN 33 mg/dL (7-18); Calcium,Total 9.1 mg/dL (8.5-10.1); Chloride 110 mmol/L (98-107); Creatinine, Serum 2.35 mg/dL (0.55-1.02); EST Glomerular Filtration Rate 21 mL/min (>60); Est Glom Filt Rate - Afr Amer 26 mL/min (>60); Glucose 91 mg/dL (74-106); Potassium 5.5 mmol/L (3.5-5.1); Sodium Level 137 mmol/L (136-145)
== END | disposition home or self-care (01) ==
LOC: MFPLAB 13:36
PROVIDERS: PCP Family Medicine; Referring Provider Family Medicine; Visit Provider Family Medicine
DX: N17.9 Acute kidney failure, unspecified (principal)
CPT/HCPCS: 36415; 80048

== ENCOUNTER → 2023-02-14 | Outpatient (CLI) | payer MEDICARE, OTHER, SELFPAY ==
[2023-02-14 18:11] LABS: Potassium 5.5 mmol/L (3.5-5.1)
== END | disposition home or self-care (01) ==
LOC: MTLAB 12:51
PROVIDERS: PCP Family Medicine; Referring Provider Family Medicine; Visit Provider Family Medicine
DX: E87.5 Hyperkalemia (principal)
CPT/HCPCS: 36415; 84132

== ENCOUNTER → 2023-02-18 | Outpatient (CLI) | payer MEDICARE, OTHER, SELFPAY ==
[2023-02-18 19:01] LABS: Anion Gap 7 (5-15); BUN 32 mg/dL (7-18); BUN/Creat Ratio 15.2 RATIO (10-20); Chloride 106 mmol/L (98-107); EST Glomerular Filtration Rate 24 mL/min (>60); Est Glom Filt Rate - Afr Amer 29 mL/min (>60); Glucose 137 mg/dL (74-106); Sodium Level 135 mmol/L (136-145)
== END | disposition home or self-care (01) ==
LOC: MFPLAB 14:03
PROVIDERS: PCP Family Medicine; Referring Provider Family Medicine; Visit Provider Family Medicine
DX: N18.30 Chronic kidney disease, stage 3 unspecified (principal)
CPT/HCPCS: 36415; 80048

== ENCOUNTER → 2023-02-26 | Outpatient (CLI) | payer MEDICARE, OTHER, SELFPAY ==
[2023-02-26 15:37] LABS: Absolute Lymphocyte Count 1.34 X10^3/uL (0.83-4.51); Basophil% 1.7 % (0-1); Eosinophil# 0.91 X10^3/uL; Eosinophils% 15.4 % (0-5); Hematocrit 32.9 % (37-47); Hemoglobin 10.3 g/dL (12.0-15.0); Lymphocyte # 1.34 X10^3/ul (0.83-4.51); Lymphocyte % 22.7 % (19-41); Mean Corp Hgb Conc 31.3 g/dL (32-36); Mean Corpuscular Hgb 29.5 pg (27.0-32.0); Mean Corpuscular Volume 94.3 fL (81-99); Mean Platelet Vol. 11.6 fl (6.2-12.0); Monocyte# 0.53 X10^3/uL; NRBC Flagged by Analyzer 0 % (0-5); Neutrophil # 3.01 X10^3/uL (2.7-7.7); Neutrophil % 50.9 % (47-70); Platelet Count 193 K/mm3 (150-450); RBC Distribution Width CV 12.9 % (11.6-14.6); RBC Distribution Width SD 44.2 fl (35.1-43.9); Red Blood Count 3.49 M/mm3 (4.2-5.4); White Blood Count 5.9 K/mm3 (4.4-11.0)
[2023-02-26 16:24] LABS: Vitamin B12 659 pg/mL (211-911); Vitamin D,25 Hydroxy 55.9 ng/mL
[2023-02-26 17:07] LABS: AST(SGOT) 18 U/L (15-37); Alanine Aminotransfer ALT/SGPT 21 U/L (13-56); Albumin, Serum 3.3 g/dL (3.2-5.0); Alkaline Phosphatase 73 U/L (45-117); Anion Gap 4 (5-15); BUN 38 mg/dL (7-18); BUN/Creat Ratio 15.3 RATIO (10-20); Calcium,Total 9.3 mg/dL (8.5-10.1); Chloride 108 mmol/L (98-107); Cholesterol 123 mg/dL (200); Creatinine, Serum 2.48 mg/dL (0.55-1.02); EST Glomerular Filtration Rate 20 mL/min (>60); Est Glom Filt Rate - Afr Amer 24 mL/min (>60); Ferritin 23 ng/mL (8-252); Globulin 3.3 g/dL (2.2-4.2); Glucose 78 mg/dL (74-106); High Density Lipoprotein 52 mg/dL; Iron 60 ug/dL (50-170); Iron Binding Capacity,Total 298 ug/dL (250-450); Phosphorus 3.8 mg/dL (2.5-4.9); Potassium 5.5 mmol/L (3.5-5.1); Protein, Total 6.6 g/dL (6.4-8.2); Sodium Level 135 mmol/L (136-145); T4 Free Direct 1.44 ng/dL (0.76-1.46); Thyroid Stim Hormone (TSH) 0.18 uIU/mL (0.358-3.74); Triglycerides 92 mg/dL; Very Low Density Lipoprotein 18 mg/dL (5-40)
[2023-02-27 08:14] LABS: PTHIN 62.8 pg/mL (18.4-80.1)
== END | disposition home or self-care (01) ==
LOC: MFPLAB 12:11
PROVIDERS: PCP Family Medicine; Visit Provider Internal Medicine Nephrology
DX: N17.9 Acute kidney failure, unspecified (principal); E11.65 Type 2 diabetes mellitus with hyperglycemia; E11.22 Type 2 diabetes mellitus with diabetic chronic kidney disease; N18.4 Chronic kidney disease, stage 4 (severe); E55.9 Vitamin D deficiency, unspecified; D63.8 Anemia in other chronic diseases classified elsewhere; E03.9 Hypothyroidism, unspecified
CPT/HCPCS: 36415; 80053; 80061; 82306; 82607; 82728; 82746; 83036; 83540; 83550; 83970; 84100; 84439; 84443; 85025

== ENCOUNTER → 2023-02-27 | Outpatient (CLI) | payer MEDICARE, OTHER, SELFPAY ==
[2023-02-27 17:58] LABS: Potassium 5.1 mmol/L (3.5-5.1)
[2023-02-27 18:43] LABS: Microalbumin:Creatinine Ratio 375.9 mg/g CRE (<30 mg/g CRE); Protein, Urine (Random) 33.3 mg/dL (<11.9); Protein:Creat Ratio 787 mg/g CRE (0-200)
== END | disposition home or self-care (01) ==
LOC: MFPLAB 16:53
PROVIDERS: PCP Family Medicine; Visit Provider Family Medicine
DX: E11.22 Type 2 diabetes mellitus with diabetic chronic kidney disease (principal); N17.9 Acute kidney failure, unspecified; E11.65 Type 2 diabetes mellitus with hyperglycemia; N18.4 Chronic kidney disease, stage 4 (severe); E87.5 Hyperkalemia
CPT/HCPCS: 36415; 82043; 82570; 84132; 84156

== ENCOUNTER → 2023-03-05 | Outpatient (CLI) | payer MEDICARE, OTHER, SELFPAY ==
[2023-03-05 15:51] LABS: Potassium 5.2 mmol/L (3.5-5.1)
== END | disposition home or self-care (01) ==
LOC: MFPLAB 12:05
PROVIDERS: PCP Family Medicine; Visit Provider Family Medicine
DX: E87.5 Hyperkalemia (principal)
CPT/HCPCS: 36415; 84132

== ENCOUNTER → 2023-03-25 | Outpatient (CLI) | payer MEDICARE, OTHER, SELFPAY ==
[2023-03-25 18:19] LABS: Anion Gap 5 (5-15); BUN 39 mg/dL (7-18); BUN/Creat Ratio 16.8 RATIO (10-20); Calcium,Total 9.2 mg/dL (8.5-10.1); Chloride 110 mmol/L (98-107); Creatinine, Serum 2.32 mg/dL (0.55-1.02); EST Glomerular Filtration Rate 22 mL/min (>60); Est Glom Filt Rate - Afr Amer 26 mL/min (>60); Glucose 99 mg/dL (74-106); Potassium 5.3 mmol/L (3.5-5.1); Sodium Level 139 mmol/L (136-145)
== END | disposition home or self-care (01) ==
LOC: MFPLAB 16:00
PROVIDERS: PCP Family Medicine; Visit Provider Family Medicine
DX: N18.4 Chronic kidney disease, stage 4 (severe) (principal)
CPT/HCPCS: 36415; 80048

== ENCOUNTER → 2023-03-28 | Outpatient (CLI) | payer MEDICARE, OTHER, SELFPAY ==
[2023-03-28 18:27] LABS: Potassium 5.5 mmol/L (3.5-5.1)
== END | disposition home or self-care (01) ==
LOC: MFPLAB 14:03
PROVIDERS: PCP Family Medicine; Visit Provider Family Medicine
DX: E87.5 Hyperkalemia (principal)
CPT/HCPCS: 36415; 84132

== ENCOUNTER → 2023-04-01 | Outpatient (CLI) | payer MEDICARE, OTHER, SELFPAY ==
[2023-04-01 15:32] LABS: Potassium 5.4 mmol/L (3.5-5.1)
== END | disposition home or self-care (01) ==
LOC: MFPLAB 11:44
PROVIDERS: PCP Family Medicine; Visit Provider Family Medicine
DX: E87.5 Hyperkalemia (principal)
CPT/HCPCS: 36415; 84132

== ENCOUNTER → 2023-04-09 | Outpatient (CLI) | payer MEDICARE, OTHER, SELFPAY ==
--- NOTE | 2023-04-09 07:52 | RDU_ITS ---
Reason For Study: Chronic Kidney Disease Right Renal Artery Left Renal Dimensions Right renal artery ostium 151.8/27.5 History of Left Nephrectomy. RSV/EDV. Right renal artery proximal 136.3/22.3 PSV/EDV. Right renal artery mid 154.4/19.7 PSV/EDV. Right renal artery distal 72.7/15.9 PSV/EDV. Right RAR 1.51. RAR may be underestimated due to high aortic velocities. Right Renal Parenchyma Upper Pole Medula 40.9/9.8 PSV/EDV. Right upper pole medulla EDR 0.20 . Right upper pole medulla R.I. 0.76 . Upper Benedict Cortx 17.4/4.2 PSV/EDV. Right upper pole cortex EDR 0.20 . Right upper pole cortex R.I. 0.76 . Right lower Pole medulla 37.2/7.6 PSV/EDV . Right lower pole medulla EDR 0.20 . Right lower pole medulla R.I. 0.78 . Lower Pole Cortex 24.5/5.3 PSV/EDV. Right lower pole cortex EDR 0.20 . Right lower pole cortex R.I. 0.78 . Right Renal Hilar Right Hilar avg 102.6/17.1 PSV/EDV. Right hilar acceleration time 40 m/sec. Right Renal Dimensions Right kidney size 11.13 cm . Right cortical dimension 1.52 cm . Aorta Proximal abdominal aorta 2.07 x 2.05 cm . Proximal abdominal aorta peak systolic velocity is 139.6 cm/sec . Distal abdominal aorta 2.37 x 2.37 cm . Distal abdominal aorta peak systolic velocity is 102.2 cm/sec . VL/Renal Artery Duplex Ultrasound Interpretation Summary Right renal artery patent with normal velocities and no evidence of stenosis Right renal vein patent Right kidney normal in size History of prior left nephrectomy. Ordering Physician: Pasha Vargas Referring Physician: Jass Koehler Performed By: Ag Wynn RVT
[2023-04-09 09:37] LABS: Anion Gap 5 (5-15); BUN 40 mg/dL (7-18); BUN/Creat Ratio 17.5 RATIO (10-20); Calcium,Total 9.3 mg/dL (8.5-10.1); Chloride 109 mmol/L (98-107); Creatinine, Serum 2.29 mg/dL (0.55-1.02); EST Glomerular Filtration Rate 22 mL/min (>60); Est Glom Filt Rate - Afr Amer 27 mL/min (>60); Glucose 96 mg/dL (74-106); Potassium 4.8 mmol/L (3.5-5.1); Sodium Level 140 mmol/L (136-145)
[2023-04-10 13:08] LABS: Anti-dsDNA Ab <1 IU/mL (0-9)
[2023-04-11 14:10] LABS: Complement C3 109 mg/dL (82-167); Cytoplasmic Ab (C-ANCA) <1:20 titer (Neg:<1:20)
== END | disposition home or self-care (01) ==
PROVIDERS: PCP Family Medicine; Referring Provider Internal Medicine Nephrology; Visit Provider Internal Medicine Nephrology
DX: N18.4 Chronic kidney disease, stage 4 (severe) (principal)
CPT/HCPCS: 36415; 80048; 86160; 86225; 86256; 93975

== ENCOUNTER → 2023-05-28 | Outpatient (CLI) | payer MEDICARE, OTHER, SELFPAY ==
[2023-05-28 18:08] LABS: Absolute Lymphocyte Count 1.46 X10^3/uL (0.83-4.51); Absolute Neutrophil Count 3.3 X10^3/uL (2.0-7.7); Basophil# 0.09 X10^3/uL; Basophil% 1.5 % (0-1); Eosinophil# 0.42 X10^3/uL; Eosinophils% 7.2 % (0-5); Hematocrit 34.7 % (37-47); Hemoglobin 10.9 g/dL (12.0-15.0); Lymphocyte # 1.46 X10^3/ul (0.83-4.51); Mean Corp Hgb Conc 31.4 g/dL (32-36); Mean Corpuscular Hgb 29.5 pg (27.0-32.0); Mean Corpuscular Volume 93.8 fL (81-99); Mean Platelet Vol. 11.3 fl (6.2-12.0); Monocyte# 0.53 X10^3/uL; Monocyte% 9.1 % (0-10); NRBC Flagged by Analyzer 0 % (0-5); Neutrophil # 3.33 X10^3/uL (2.7-7.7); Neutrophil % 56.9 % (47-70); Platelet Count 202 K/mm3 (150-450); RBC Distribution Width CV 12.9 % (11.6-14.6); RBC Distribution Width SD 44.3 fl (35.1-43.9); White Blood Count 5.9 K/mm3 (4.4-11.0)
[2023-05-28 18:35] LABS: AST(SGOT) 18 U/L (15-37); Alanine Aminotransfer ALT/SGPT 24 U/L (13-56); Albumin, Serum 3.2 g/dL (3.2-5.0); Alkaline Phosphatase 87 U/L (45-117); Anion Gap 8 (5-15); BUN 46 mg/dL (7-18); BUN/Creat Ratio 17.5 RATIO (10-20); Calcium,Total 8.5 mg/dL (8.5-10.1); Chloride 110 mmol/L (98-107); Cholesterol 122 mg/dL (200); Creatinine, Serum 2.63 mg/dL (0.55-1.02); EST Glomerular Filtration Rate 19 mL/min (>60); Est Glom Filt Rate - Afr Amer 23 mL/min (>60); Globulin 3.2 g/dL (2.2-4.2); Glucose 131 mg/dL (74-106); High Density Lipoprotein 49 mg/dL; Potassium 5.3 mmol/L (3.5-5.1); Protein, Total 6.4 g/dL (6.4-8.2); Sodium Level 140 mmol/L (136-145); T4 Free Direct 1.13 ng/dL (0.76-1.46); Thyroid Stim Hormone (TSH) 0.79 uIU/mL (0.358-3.74); Triglycerides 173 mg/dL; Very Low Density Lipoprotein 35 mg/dL (5-40)
[2023-05-28 18:37] LABS: Hemoglobin A1c 5.7 % (3.8-5.6)
== END | disposition home or self-care (01) ==
LOC: MFPLAB 16:56
PROVIDERS: PCP Family Medicine; Visit Provider Family Medicine
DX: E03.9 Hypothyroidism, unspecified (principal); E11.69 Type 2 diabetes mellitus with other specified complication
CPT/HCPCS: 36415; 80053; 80061; 83036; 84439; 84443; 85025

== ENCOUNTER → 2023-07-01 | Outpatient (CLI) | payer MEDICARE, OTHER, SELFPAY ==
[2023-07-01 18:11] LABS: Anion Gap 7 (5-15); BUN 44 mg/dL (7-18); Calcium,Total 8.8 mg/dL (8.5-10.1); Chloride 110 mmol/L (98-107); Creatinine, Serum 2.31 mg/dL (0.55-1.02); EST Glomerular Filtration Rate 22 mL/min (>60); Est Glom Filt Rate - Afr Amer 26 mL/min (>60); Glucose 191 mg/dL (74-106); Potassium 4.7 mmol/L (3.5-5.1); Sodium Level 141 mmol/L (136-145)
[2023-07-01 19:06] LABS: Protein, Urine (Random) 56.6 mg/dL (<11.9); Protein:Creat Ratio 1192 mg/g CRE (0-200)
[2023-07-03 05:07] LABS: Complement C3 118 mg/dL (82-167)
[2023-07-03 13:08] LABS: Anti-dsDNA Ab 1 IU/mL (0-9)
== END | disposition home or self-care (01) ==
PROVIDERS: PCP Family Medicine; Visit Provider Internal Medicine Nephrology
DX: N18.4 Chronic kidney disease, stage 4 (severe) (principal)
CPT/HCPCS: 36415; 80048; 82570; 84156; 86160; 86225; 86376

== ENCOUNTER → 2023-07-28 | Outpatient (CLI) | payer MEDICARE, OTHER, SELFPAY | END | disposition home or self-care (01) | LOC: LABSPEC 16:14 | PROVIDERS: PCP Family Medicine; Referring Provider Urology; Visit Provider Urology | DX: R10.9 Unspecified abdominal pain (principal) | CPT/HCPCS: 87077; 87086; 87088; 87186 ==

== ENCOUNTER → 2023-08-01 | Outpatient (CLI) | payer MEDICARE, OTHER, SELFPAY ==
[2023-08-01 18:09] LABS: Potassium 4.4 mmol/L (3.5-5.1)
== END | disposition home or self-care (01) ==
LOC: MFPLAB 15:27
PROVIDERS: PCP Family Medicine; Visit Provider Family Medicine
DX: E87.5 Hyperkalemia (principal)
CPT/HCPCS: 36415; 84132

== ENCOUNTER → 2023-10-09 | Outpatient (CLI) | payer MEDICARE, OTHER, SELFPAY ==
[2023-10-09 17:49] LABS: Absolute Lymphocyte Count 1.06 X10^3/uL (0.83-4.51); Absolute Neutrophil Count 4.2 X10^3/uL (2.0-7.7); Basophil# 0.12 X10^3/uL; Basophil% 1.8 % (0-1); Eosinophil# 0.54 X10^3/uL; Eosinophils% 8.3 % (0-5); Hematocrit 34.9 % (37-47); Hemoglobin 10.9 g/dL (12.0-15.0); Lymphocyte # 1.06 X10^3/ul (0.83-4.51); Lymphocyte % 16.2 % (19-41); Mean Corp Hgb Conc 31.2 g/dL (32-36); Mean Corpuscular Hgb 28.6 pg (27.0-32.0); Mean Corpuscular Volume 91.6 fL (81-99); Mean Platelet Vol. 11.4 fl (6.2-12.0); Monocyte% 9.2 % (0-10); NRBC Flagged by Analyzer 0 % (0-5); Neutrophil # 4.19 X10^3/uL (2.7-7.7); Neutrophil % 64.2 % (47-70); Platelet Count 205 K/mm3 (150-450); RBC Distribution Width CV 12.9 % (11.6-14.6); RBC Distribution Width SD 43.3 fl (35.1-43.9); Red Blood Count 3.81 M/mm3 (4.2-5.4); White Blood Count 6.5 K/mm3 (4.4-11.0)
[2023-10-09 18:01] LABS: Hemoglobin A1c 5.7 % (3.8-5.6)
[2023-10-09 18:10] LABS: Vitamin D,25 Hydroxy 48.8 ng/mL
[2023-10-09 18:17] LABS: ALB/GLOB Ratio 0.9 RATIO (0.9-2.4); AST(SGOT) 18 U/L (15-37); Alanine Aminotransfer ALT/SGPT 18 U/L (13-56); Albumin, Serum 3.1 g/dL (3.2-5.0); Alkaline Phosphatase 75 U/L (45-117); Anion Gap 7 (5-15); BUN 30 mg/dL (7-18); BUN/Creat Ratio 14.6 RATIO (10-20); Calcium,Total 8.6 mg/dL (8.5-10.1); Chloride 109 mmol/L (98-107); Cholesterol 125 mg/dL (200); Creatinine, Serum 2.06 mg/dL (0.55-1.02); EST Glomerular Filtration Rate 25 mL/min (>60); Est Glom Filt Rate - Afr Amer 30 mL/min (>60); Globulin 3.5 g/dL (2.2-4.2); Glucose 96 mg/dL (74-106); High Density Lipoprotein 53 mg/dL; Potassium 4.9 mmol/L (3.5-5.1); Protein, Total 6.6 g/dL (6.4-8.2); Sodium Level 140 mmol/L (136-145); T4 Free Direct 1.28 ng/dL (0.76-1.46); Thyroid Stim Hormone (TSH) 2.08 uIU/mL (0.358-3.74); Triglycerides 84 mg/dL; Very Low Density Lipoprotein 17 mg/dL (5-40)
== END | disposition home or self-care (01) ==
LOC: MFPLAB 15:34
PROVIDERS: PCP Family Medicine; Visit Provider Family Medicine
DX: E03.9 Hypothyroidism, unspecified (principal); E11.8 Type 2 diabetes mellitus with unspecified complications; E55.9 Vitamin D deficiency, unspecified
CPT/HCPCS: 36415; 80053; 80061; 82306; 83036; 84439; 84443; 85025

== ENCOUNTER → 2023-10-10 | Outpatient (CLI) | payer MEDICARE, OTHER, SELFPAY ==
[2023-10-10 19:01] LABS: Microalbumin:Creatinine Ratio 1099.1 mg/g CRE (<30 mg/g CRE)
== END | disposition home or self-care (01) ==
LOC: LABSPEC 15:36
PROVIDERS: PCP Family Medicine; Visit Provider Family Medicine
DX: E11.8 Type 2 diabetes mellitus with unspecified complications (principal)
CPT/HCPCS: 82043; 82570

== ENCOUNTER → 2023-11-05 | Outpatient (CLI) | payer MEDICARE, OTHER, SELFPAY ==
[2023-11-05 17:34] LABS: Hematocrit 33.8 % (37-47); Hemoglobin 10.6 g/dL (12.0-15.0); Mean Corp Hgb Conc 31.4 g/dL (32-36); Mean Corpuscular Hgb 28.6 pg (27.0-32.0); Mean Corpuscular Volume 91.1 fL (81-99); Mean Platelet Vol. 11.4 fl (6.2-12.0); Platelet Count 200 K/mm3 (150-450); RBC Distribution Width CV 13.4 % (11.6-14.6); RBC Distribution Width SD 44.7 fl (35.1-43.9); Red Blood Count 3.71 M/mm3 (4.2-5.4); White Blood Count 7.2 K/mm3 (4.4-11.0)
[2023-11-05 17:55] LABS: Protein, Urine (Random) 89.5 mg/dL (<11.9); Protein:Creat Ratio 1403 mg/g CRE (0-200)
[2023-11-05 18:08] LABS: Albumin, Serum 3.1 g/dL (3.2-5.0); BUN 31 mg/dL (7-18); BUN/Creat Ratio 13.9 RATIO (10-20); Calcium,Total 8.4 mg/dL (8.5-10.1); Chloride 111 mmol/L (98-107); Creatinine, Serum 2.23 mg/dL (0.55-1.02); EST Glomerular Filtration Rate 23 mL/min (>60); Est Glom Filt Rate - Afr Amer 27 mL/min (>60); Glucose 210 mg/dL (74-106); Phosphorus 4.2 mg/dL (2.5-4.9); Potassium 4.9 mmol/L (3.5-5.1); Sodium Level 140 mmol/L (136-145)
[2023-11-05 18:09] LABS: Vitamin D,25 Hydroxy 53.2 ng/mL
[2023-11-06 08:15] LABS: PTHIN 112.5 pg/mL (18.4-80.1)
== END | disposition home or self-care (01) ==
LOC: MFPLAB 15:27
PROVIDERS: PCP Family Medicine; Visit Provider Internal Medicine Nephrology
DX: N18.4 Chronic kidney disease, stage 4 (severe) (principal)
CPT/HCPCS: 36415; 80069; 82306; 82570; 83970; 84156; 85027

== ENCOUNTER → 2024-01-23 | Outpatient (CLI) | payer MEDICARE, OTHER, SELFPAY ==
--- NOTE | 2024-01-23 15:56 | CT_ITS ---
EXAM: CT ABDOMEN AND PELVIS WITH INTRAVENOUS CONTRAST CLINICAL INDICATION: Malignant neoplasm of left kidney, except renal pe TECHNIQUE: Helically acquired images were obtained of the abdomen and pelvis with intravenous contrast. This CT exam was performed using one or more of the following dose reduction techniques: automated exposure control, adjustment of the mA and/or kV according to patient size, and/or use of iterative reconstruction technique. CONTRAST: IV 75mL [id number]-300 COMPARISON: 03/20/2016 FINDINGS: LOWER THORAX: Unremarkable. Lung bases are clear. No cardiomegaly. No significant pericardial effusion. ABDOMEN: LIVER: Unremarkable. Homogeneous. No focal mass. GALLBLADDER AND BILE DUCTS: Unremarkable. No calcified gallstones. No gallbladder distention or wall edema. No intra- or extrahepatic biliary ductal dilation. PANCREAS: Unremarkable. No focal cystic or solid mass. SPLEEN: Unremarkable. Normal size without focal cystic or solid mass. ADRENALS: Unremarkable. No nodules. KIDNEYS AND URETERS: Patient has had a left nephrectomy. STOMACH AND BOWEL: Unremarkable. No stomach or bowel distention. No focal inflammatory change. PELVIS: APPENDIX: No evidence of acute appendicitis. BLADDER: Unremarkable. REPRODUCTIVE: Unremarkable as visualized. No mass. ABDOMEN and PELVIS: INTRAPERITONEAL SPACE: Unremarkable. No ascites or other fluid collection. No free air. BONES/JOINTS: Unremarkable. No suspicious lytic or blastic abnormality. SOFT TISSUES: There are small cystic structure in the subcutaneous tissues at the level of the umbilicus that measures 1.9 x 2.5 cm. VASCULATURE: Unremarkable. Abdominal aorta is non-dilated. LYMPH NODES: Unremarkable. No enlarged lymph nodes. TUBES, LINES AND DEVICES: There is mechanical device in subcutaneous tissues posterior to the lower lumbar spine with a lead extending into the thoracic canal. CT/Abdomen/Pelvis W IV Cont ONLY IMPRESSION: Status post left nephrectomy. There is no acute abnormality in the abdomen or pelvis. Electronically Signed: Cesar Heard MD at 0:13 EDT ,
[2024-01-23 16:22] LABS: CREATININE FINGERSTICK 1.5 mg/dL (0.55-1.02)
== END | disposition home or self-care (01) ==
PROVIDERS: PCP Family Medicine; Referring Provider Urology; Visit Provider Urology
DX: C64.2 Malignant neoplasm of left kidney, except renal pelvis (principal); D41.02 Neoplasm of uncertain behavior of left kidney
CPT/HCPCS: 74177; Q9967

== ENCOUNTER → 2024-01-23 | Outpatient (CLI) | payer MEDICARE, OTHER, SELFPAY ==
[2024-01-23 17:36] LABS: Hematocrit 37.7 % (37-47); Hemoglobin 12.2 g/dL (12.0-15.0); Mean Corp Hgb Conc 32.4 g/dL (32-36); Mean Corpuscular Hgb 29.8 pg (27.0-32.0); Mean Platelet Vol. 11.5 fl (6.2-12.0); Platelet Count 178 K/mm3 (150-450); RBC Distribution Width CV 13.7 % (11.6-14.6); RBC Distribution Width SD 46.2 fl (35.1-43.9); White Blood Count 5.7 K/mm3 (4.4-11.0)
[2024-01-23 17:55] LABS: Protein, Urine (Random) 37.6 mg/dL (<11.9); Protein:Creat Ratio 512 mg/g CRE (0-200)
[2024-01-23 17:58] LABS: ALB/GLOB Ratio 1.4 RATIO (0.9-2.4); AST(SGOT) 22 U/L (15-37); Alanine Aminotransfer ALT/SGPT 33 U/L (13-56); Albumin, Serum 3.4 g/dL (3.2-5.0); Alkaline Phosphatase 67 U/L (45-117); Anion Gap 4 (5-15); BUN 37 mg/dL (7-18); BUN/Creat Ratio 16.4 RATIO (10-20); Calcium,Total 8.5 mg/dL (8.5-10.1); Chloride 109 mmol/L (98-107); Creatinine, Serum 2.25 mg/dL (0.55-1.02); EST Glomerular Filtration Rate 22 mL/min (>60); Est Glom Filt Rate - Afr Amer 27 mL/min (>60); Globulin 2.5 g/dL (2.2-4.2); Glucose 87 mg/dL (74-106); Potassium 4.8 mmol/L (3.5-5.1); Protein, Total 5.9 g/dL (6.4-8.2); Sodium Level 140 mmol/L (136-145)
[2024-01-23 17:59] LABS: Amphetamine Urine VISTA NEGATIVE (<1000 ng/mL); Barbiturate Urine VISTA NEGATIVE (< 200 ng/mL); Benzodiazepine Urine VISTA NEGATIVE (< 200 ng/mL); Cocaine Urine VISTA NEGATIVE (< 300 ng/mL); Ecstacy Urine VISTA NEGATIVE (< 500 ng/mL); Methadone Urine VISTA NEGATIVE (< 300 ng/mL); PCP Urine VISTA NEGATIVE (< 25 ng/mL); THC Urine VISTA NEGATIVE (< 50 ng/mL); Vista UDS pH Range 5
--- OUTSIDE RECORDS SUMMARY | 2024-01-23 19:21 | XMS RPT_ITS | CCD ---
Author Name Unknown Address [id number] [place] [address] Organization [facility] Care Team Providers Care Tariff Counsel Name Role Phone Jass Solo DO Primary Care Provider 1( [phone] Coral Lima Primary Care Provider Jass Lloyd Primary Care Provider PATRIC TORRES Referring Unavailable GABINO [facility] Unavailabl PATRIC Parsons Referring [facility]available [facility] LLOYD [facility] Primary [facility] UnavailCÉSAR Valles Attending Unavailable PATRIC TORRES Referring Unavailable PATRIC TORRES Referring Unavailable [facility] Unavailaniya LLOYD, [facility] Primary [facility] UnavailPATRIC Mojica Attending Unavailable PATRIC TORRES Attending Unavailable DANICA SMITH Referring Un[facility] UnavailJOSE JUAN Maradiaga Referring Unavailable [facility] PATRIC TORRES Referring Unavailable [facility] Unavailabl PATRIC Parsons Referring Unavailable [facility] Unavailaniya Lloyd [facility] Primary Care Provider Gabino GILMAN, Jass Cheng Primary Care Provider Allergies Allergy Classification Reported Allergen(s) Allergy Type Date of Onset Reaction(s) Facility Penicillins (antibiotic) (1 source) Penicillins Drug Allergy 1 [facility] (3 sources) Penicillins; Translations: [PENICILLINS] Propensity to adverse reactions 0 [facility] Work Phone: (16 sources) telithromycin; Translations: [TELITHROMYCIN] Drug Allergy 0 [facility] Work Phone: (16 sources) Bee Sting; Translations: [BEE STING] Propensity to adverse reactions 0 [facility] Work Phone: (14 sources) environmental [Other] Propensity to adverse reactions 0 [facility] Work Phone: (16 sources) Soap; Translations: [SOAP] Propensity to adverse reactions 0 Hives [facility] Work Phone: (13 sources) Penicillins Propensity to adverse reactions 0 [facility] Work Phone: (5 sources) DULoxetine; Translations: [DULOXETINE] Drug Allergy 2 Mental Status Change [facility] (2 sources) OTHER; Translations: [OTHER] Propensity to adverse reactions (disorder) 0 [facility] Other [place] [facility] Medications Current Medications Medication Drug Class(es) Dates Sig (Normalized) Sig (Original) acetaminophen 500 mg oral tablet (2 sources) Start: 04-04-2021 End: 04-04-2021 acetaminophen (TYLENOL) tablet 1,000 mg acetaminophen 325 mg / oxyCODONE hydrochloride 5 mg oral tablet (1 source) Opioid Agonist take 1 tablet by mouth three times daily as needed for pain oxyCODONE-acetamin ophen (PERCOCET) 5-325 MG per tablet Take 1 tablet by mouth 3 times daily as needed for Pain. 0 Active amLODIPine (1 source) Dihydropyridine Calcium Channel [place] Start: 04-04-2021 amLODIPine (NORVASC) tablet 5 mg bisacodyl 5 mg delayed release oral tablet (1 source) Stimulant Laxative Start: 04-04-2021 take 5 mg by mouth once daily 5 mg, Oral, DAILY, First dose on Fri04/04/21 at 1500 Do not crush or break. Post-op calcium carbonate 1250 mg oral tablet (2 sources) Start: 04-04-2021 take 500 mg by mouth once daily 500 mg, Oral, DAILY, First dose on Fri04/04/21 at 1500 Completed/Discontinued Medications Medication Drug Class(es) Dates Sig (Normalized) Sig (Original) acetaminophen 500 mg / HYDROcodone bitartrate 5 mg oral capsule (14 sources) Opioid Agonist Hydrocodone-Acet aminop hen 5-500 mg cap Take by mouth. 0 Active Problems Problem Classification Problem Date Documented Da te Episodic/Chronic Abdominal pain (8 sources) Abdominal pain; Translations: [Unspecified abdominal pain] Onset: 09-05-2022 Episodic Diabetes mellitus with complications (14 sources) Type 2 diabetes mellitus; Translations: [Type II or unspecified type diabetes mellitus without mention of complication, uncontrolled] Onset: 05-28-2010 05-28-2010 Chronic Menopausal disorders (14 sources) Atrophic vaginitis; Translations: [Postmenopausal atrophic vaginitis] Onset: 04-09-2011 04-09-2011 Chronic Nausea and vomiting (2 sources) Nausea and vomiting; Translations: [Nausea with vomiting, unspecified] Onset: 09-19-2022 Episodic Other connective tissue disease (2 sources) Pain in lower limb; Translations: [Pain in leg, unspecified] Onset: 04-04-2021 Episodic Other diseases of kidney and ureters (2 sources) Renal mass; Translations: [Other specified disorders of kidney and ureter] Chronic Other diseases of kidney and ureters (1 source) Disorder of kidney and/or ureter; Translations: [Other specified disorders of kidney and ureter] Chronic Other diseases of kidney and ureters (1 source) Other specified disorders of kidney and ureter; Translations: [Renal mass, left] Onset: 09-20-2022 Chronic Other gastrointestinal disorders (1 source) Alteration in bowel elimination; Translations: [Change in bowel habit] Episodic Other gastrointestinal disorders (1 source) Change in bowel habit; Translations: [Change in bowel habits] Onset: 09-19-2022 Episodic Other inflammatory condition of skin (2 sources) Psoriatic arthritis; Translations: [Arthropathic psoriasis, unspecified] Onset: 04-04-2021 Chronic Other nutritional; endocrine; and metabolic disorders (5 sources) Abnormal weight loss; Translations: [Abnormal weight loss] Episodic Other nutritional; endocrine; and metabolic disorders (1 source) Weight loss; Translations: [Abnormal weight loss] Episodic Other nutritional; endocrine; and metabolic disorders (3 sources) Abnormal weight loss; Translations: [Weight loss] Onset: 09-05-2022 Episodic Thyroid disorders (14 sources) Hypothyroidism; Translations: [Hypothyroidism, unspecified] Onset: 12-18-2009 12-18-2009 Chronic Results Test Name Value Interpretation Reference Range Facil ity Vital Signs Date Time Vital Sign Value Performing Clinician Facility 09-19-2022 11:10-0500 Diastolic blood pressure 62 mm[Hg] Danica Smith MD Work Phone: [facility] 09-19-2022 11:10-0500 Heart rate 67 /min Danica Smith MD Work Phone: [facility] 09-19-2022 11:10-0500 Respiratory rate 18 /min Danica Smith MD Work Phone: [facility] 09-19-2022 11:10-0500 SaO2% (BldA) [Mass fraction] 100 % Danica Smith MD Work Phone: [facility] 09-19-2022 11:10-0500 Systolic blood pressure 157 mm[Hg] Danica Smith MD Work Phone: [facility] 09-19-2022 10:54-0500 Body temperature 97.3 [degF] Danica Smith MD Work Phone: [facility] 09-19-2022 10:00-0500 Body height 160 cm Danica Smith MD Work Phone: [facility] 09-19-2022 10:00-0500 Body weight 106.59 kg Danica Smith MD Work Phone: [facility] 08-29-2022 11:20-0400 Body height 160 cm Patric Torres MD Work Phone: [facility] 08-29-2022 11:20-0400 Body temperature 97.81 [degF] Patric Torres MD Work Phone: [facility] 08-29-2022 11:20-0400 Body weight 109.32 kg Patric Torres MD Work Phone: [facility] 08-29-2022 11:20-0400 Diastolic blood pressure 62 mm[Hg] Patric Torres MD Work Phone: [facility] 08-29-2022 11:20-0400 Heart rate 75 /min Patric Torres MD Work Phone: [facility] 08-29-2022 11:20-0400 SaO2% (BldA) [Mass fraction] 95 % Patric Torres MD Work Phone: [facility] 08-29-2022 11:20-0400 Systolic blood pressure 136 mm[Hg] Patric Torres MD Work Phone: [facility] 04-05-2021 09:43-0400 Body temperature 98.29 [degF] Garret Rowley MD Work Phone: [facility] Work Phone: 04-05-2021 09:43-0400 Diastolic blood pressure 67 mm[Hg] Garret Rowley MD Work Phone: [facility] Work Phone: 04-05-2021 09:43-0400 Heart rate 75 /min Garret Rowley MD Work Phone: [facility] Work Phone: 04-05-2021 09:43-0400 Respiratory rate 18 /min Garret Rowley MD Work Phone: [facility] Work Phone: 04-05-2021 09:43-0400 SaO2% (BldA) [Mass fraction] 98 % Garret Rowley MD Work Phone: [facility] Work Phone: 04-05-2021 09:43-0400 Systolic blood pressure 172 mm[Hg] Garret Rowley MD Work Phone: [facility] Work Phone: 04-04-2021 08:32-0400 Body height 160 cm Garret Rowley MD Work Phone: [facility] Work Phone: 04-04-2021 08:32-0400 Body mass index (BMI) [Ratio] 48.01 kg/m2 Garret Rowley MD Work Phone: [facility] Work Phone: 04-04-2021 08:32-0400 Body weight 122.92 kg Garret Rowley MD Work Phone: [facility] Work Phone: Encounters Encounter Date Encounter Type Care Provider Facility Start: 10-24-2022 Telephone encounter Patric Torres MD Work Phone: General Surgery Procedures Date Procedure Procedure Detail Performing Clinician Start: 09-20-2022 Ct abdomen & pelvis w/o contrst 1/> body re Patric Torres MD Work Phone: Start: 09-19-2022 Gluc bld gluc mntr d ev cleared fda spec home use César Valenzuela [employer]ODUCTION WORKER.[employer] CR[employer] OPERATOR Work Phone: Start: 09-13-2022 Us retroperitoneal r eal time w/image complete Patric Torres MD Work Phone: Start: 04-05-2021 Gluc bld gluc mntr d ev cleared fda spec home use Garret Rowley MD Work Phone: Start: 04-05-2021 Gluc bld gluc mntr d ev cleared fda spec home use Garret Rowley MD Work Phone: Start: 04-05-2021 OPERATIVE REPORT 3m Sca nning Start: 04-04-2021 Gluc bld gluc mntr d ev cleared fda spec home use Garret Rowley MD Work Phone: Start: 04-04-2021 Gluc bld gluc mntr d ev cleared fda spec home use Garret Rowley MD Work Phone: Start: 04-04-2021 Gluc bld gluc mntr d ev cleared fda spec home use Garret Rowley MD Work Phone: Start: 04-04-2021 Gluc bld gluc mntr d ev cleared fda spec home use Garret Rowley MD Work Phone: Start: 04-04-2021 Gluc bld gluc mntr d ev cleared fda spec home use Garret Rowley MD Work Phone: Start: 04-04-2021 Gluc bld gluc mntr d ev cleared fda spec home use Garret Rowley MD Work Phone: Plan of Treatment Date Care Activity Detail Author Start: 07-11-2023 Covid-19 Vaccine ( season) Covid-19 Vaccine ( season) [facility] Start: 07-11-2023 Influenza vaccination Influenza Vacc ine (#1) [facility] Start: 11-10-2022 ADVANCE DIRECTIVE DISCUSSION ADVANCE DIRECTIVE DISCUSSION [facility] Start: 11-10-2022 DEPRESSION ASSESSMENT DEPRESSION ASS ESSMENT [facility] Start: 09-24-2022 End: 10-17-2023 Ct abdomen w/o & w/contrast material CT KIDNEY WO/W IVCON Radiology Routine Other specified disorders of kidney and ureter Expected: 09/24/2022 (Approximate), Expires: 10/17/2023 [facility] Work Phone: Immunizations Immunization Date Immunization Notes Care Provider Judi palmer 09-06-2022 influenza virus vaccine, unspecified formulation Ct (I-Stat) Work Phone: [facility] 08-17-2010 influenza virus vaccine, unspecified formulation Kelly Fields MD Work Phone: [facility] Work Phone: Payers Date Payer Category Payer Unknown [id number] 2021 [employer] ( and others) [id number] 2011 Medicare [id number] 2011 Medicare MEDICARE MEDICAR E A AND B [id number] 2011-Present [phone] [place] [address] Medicare [id number] 2011 Medicare MEDICARE MEDICAR E A AND B [id number] 2011-Present [phone] [place] [address] Medicare [id number] 2011 Unknown FOR LIFE [id number] 2011-Present [phone] [address] [place] [address] Indemnity [id number] Social History Date Type Detail Facility Start: 08-26-2011 End: 04-05-2021 Tobacco smoking status NVIS Former smoker [facility] Start: 11-10-1968 End: 02-12-1997 History of tobacco use Current smoker [facility] Start: 11-10-1968 End: 02-12-1997 History of tobacco use Cigarette Smoker [facility] Start: 10-18-2020 End: 04-05-2021 Cigarettes smoked current (pack per day) - Reported [facility] Work Phone: Start: 08-26-2011 End: 04-05-2021 Tobacco use and exposure Never used [facility] Start: 04-05-2021 Alcohol intake Ex-drinker (finding) [facility] Work Phone: Start: 1945 Sex Assigned At Not on file [facility] Work Phone: Start: 08-19-2022 End: 09-26-2022 Exposure to SARS-CoV-2 (event) Not sure [facility] Start: 04-30-2019 End: 08-29-2022 Alcohol intake Current drinker of alcohol (finding) [facility] Start: 12-18-2009 History SDOH Alcohol Comment rarely [facility] Start: 10-18-2020 End: 08-29-2022 Tobacco use panel [facility] National Score (1-10 0), lower number is lower risk Not on file [facility] Medical Equipment Procedure Code Equipment Code Equipment Origin al Text Equipment Identifier Dates TEST BLOOD SUGAR S once daily Start: 08-26-2011 Clinical Notes 04-05-2021 to 10-29-2022 Telephone Encounter - Opal Donahue RN - 10/29/2022 9:59 AM ESTTelephone Encounter - Isha Albarado RN - 10/29/2022 8:07 AM ESTTelephone Encounter - Isha Albarado RN - 10/24/2022 10:37 AM EST Note Date & Type Note Facility 10-29-2022 Miscellaneous Notes Tanisha called. Reviewed Dr. Torres's message with her. She advised that she has already been evaluated by Dr. Huizar and will be having surgery on 11/13/2022. Looked in [facility] and Dr. Huizar's notes are not available. Will send a request for notes. Opal Donahue RN Images from the original note were not included. Call to pt to notify of below. LVM with spouse for pt to call back. Patric Torres MD You 4 days ago I unfortunately found nothing that would answer her questions on endoscopy in the GI tract. She does have what is most likely a renal cancer. She should be following up with urology for that. Pt called in with reports of worsening n/v. Is down 95lbs and states the medications she started at [facility] have not been helping. N/V worse in the morning and then feels exhausted the rest of the day. Pt states emesis is clear and sometimes consists of bile. Pt states she is able to eat light meals for lunch and dinner and feels okay and is able to tolerate sprite and propel. Pt states she notified pcp as well and he is suggesting a gastric emptying evaluation. Pt is worried about her upcoming surgery in November for her kidney mass that if her n/v does not improve she will not do well with the surgery. Pt is diabetic but does not check BS at home. Suggested for pt to check BS tomorrow AM since her n/v seems to happen only in the AM and pt states it's usually after her Lantus dose. Pt states she will check BS in the morning and if out of range will contact PCP. Please advise pt for any recommendations regarding n/v. documented in this encounter [facility] 09-26-2022 Note HNO ID: [id number] Author: Patric Torres MD Service: ? Author Type: Physician Type: Progress Notes Filed: 09/26/2022 4:39 PM Note Text: FOLLOW UP VISIT - ENDOSCOPY NAME: Tanisha Rutherford [facility] NO.: [id number] DATE OF SERVICE: 09/26/2022 : 1945 REFERRING PHYSICIAN: Jass Lloyd MD Tanisha is a patient I am following for abnormal weight loss. The patient is a 76 year old female referred for endoscopy. Tanisha notes issues related to alternating between constipation and diarrhea. She states she never has normal bowel movements. She states she has lots of bowel mucus and during diarrhea no significant cramping. The patient notes that when she coughs or has a gagging sensation she then gets reflux and starts heaving. She will vomit this may or may not be related to nausea. She notes lots of gas and distention especially in her mid to upper abdomen notes worsening discomfort if she bends from the waist. She notes that as a result she has been afraid to eat food as when she does this because her abdominal cramping and diarrhea. She also notes that all food now taste relatively bad to her. She notes that she can drink sugar-based bright but all other liquids are a challenge and even she notes nausea with drinking water. She notes fatigue. Her weight is decreased from 270 to 241 pounds. She is happy with her weight loss she feels that this is due to the above symptoms. She was started on Pepcid 20 mg and Nexium 40 mg. She has this was initially helping but then a week ago all her symptoms returned. Tanisha has undergone prior endoscopy. There went colonoscopy she does not quite remember when this happened. She has never had upper endoscopy. The patient is being seen by me at the request of Dr. Jass Lloyd MD for my opinion and advice regarding weight loss, abdominal bloating constipation diarrhea abdominal complaints. Since I was somewhat scheduled out for endoscopy and the patient was anxious about her symptoms we also elected to obtain a CT scan of the abdomen pelvis to assess for any obvious abnormalities prior to endoscopy. CT scan of the abdomen pelvis was obtained on September 06, 2022. This demonstrated: IMPRESSION: 5 cm hypodense mass at the upper pole of the left kidney. This could be a solid mass versus complex cystic lesion. Renal ultrasound recommended to differentiate these possibilities. Minimal sigmoid colonic diverticulosis without acute diverticulitis. No bowel wall inflammatory changes. Was followed by renal ultrasound which demonstrated: IMPRESSION: 5.8 cm left renal mass suspicious for a renal cell carcinoma. Unremarkable appearance of the right kidney and bladder. Contacted urology they recommended a renal CT scan. This demonstrated: IMPRESSION: Enhancing mass in the upper pole of the left kidney likely represents renal cell carcinoma Danica Smith performed upper and lower endoscopy on September 19, 2022. The patient was found to have mild gastritis, small hiatal hernia, small fundic area polyps and minimal irritation of the GE junction. Colonoscopy demonstrated a transverse colon polyp smaller than 1 cm and she also had random colon biopsies obtained. Pathology demonstrated: FINAL DIAGNOSIS A. Gastric antrum, biopsies: - Features of reactive gastropathy with minimal chronic inflammation. Negative for the Helicobacter pylori pattern of gastritis. B. Gastric polyp, biopsies: - Hyperplastic polyp. C. Esophagogastric junction, biopsies: - Gastric-type glandular mucosa with chronic inflammation and reactive changes. Negative for Reynolds's esophagus. Squamous epithelium is not represented. D. Transverse colon, biopsies: - Tubular adenoma. E. Colon, random biopsies: - Unremarkable colonic mucosa. The patient notes continued complaints of vomiting up clear mucus not food sometimes when she gets up in the morning other times throughout the day. She denies throwing up food or blood but occasionally notes some bilious spitting up . VITALS: There were no vitals taken for this visit. On examination, the abdomen is benign. Assessment IMPRESSION: Mild gastritis, mild distal esophagitis, tubular adenoma PLAN: If the patient notes any problems or changes in bowel function, the patient should contact me immediately. Otherwise I recommend follow up endoscopy as needed. At this time I recommend she increase her Nexium to twice a day to see if this improves her symptoms. The patient is not throwing up solid food and this does not seem to happen prolonged after eating. She states she had a gastric emptying study performed at [facility] which was normal. If her symptoms persist I would consider referring her to the upper GI physiology lab at [facility] to evaluate for esophageal motility issues. You were found to have an adenomatous colon polyp. I recommend you undergo repeat endoscopy in 5 years. If you note bleedi (more content not included)... [facility] 09-20-2022 Note HNO ID: [id number] Author: RT Brittnee(R) Service: ? Author Type: Road Contractor Type: Progress Notes Filed: 09/20/2022 3:58 PM Note Text: Radiology Service Progress Note DATE OF SERVICE: September 20, 2022 TIME: 3:57 PM PATIENT IDENTITY VERIFICATION COMPLETED USING TWO (2) STANDARD IDENTIFIERS: Name and Date of confirmed by patient verbally. FALL SCREENING: Has the patient had 2 falls in the last year or 1 fall with injury or currently using an Ambulatory Assistive Device (Walker, Cane, Wheelchair, Crutches, etc.)? No PATIENT GENDER DATA: Female. status: : No status: NO. PATIENT RELEVANT IMPLANT DATA REVIEWED: Yes ALLERGIES: Reviewed and unchanged CONTRAST ALLERGY: NO. EXAM: CT -CONTRAST INDUCED NEPHROPATHY RISK FACTORS: Patient age > 60 years CREATININE: Creatinine Date Value Ref Range Status 09/20/2022 0.96 0.58 - 0.96 mg/dL Final Estimated Glomerular Filtration Rate Date Value Ref Range Status 09/20/2022 62 >=60 mL/min/1.73m? Final Comment: Estimated Glomerular Filtration Rate (eGFR) is calculated using the 2020 CKD-EPI creatinine equation. This equation utilizes serum creatinine, sex, and age as parameters. The creatinine assay has traceable calibration to isotope dilution-mass spectrometry. Refer to KDIGO guidelines for clinical interpretation. In patients with unstable renal function, e.g. those with acute kidney injury, the eGFR may not accurately reflect actual GFR. P.O.C.T. RESULTS: POC done: Yes, See Lab Tab September 20, 2022 TREATMENT: N/A PERIPHERAL IV DATA: Ambulatory: A peripheral IV was started in the Left antecubital site with a Angio cath: 18 gauge. RADIOLOGY DEPARTMENT: CT; Exam(s) Completed: Kidney and Pelvis SIGNATURE: RT Inocencia(R) PATIENT NAME: Tanisha Rutherford DATE: September 20, 2022 TIME: 3:57 PM [facility] 09-20-2022 History of Presen t illness Narrative Radiology Service Progress Note DATE OF SERVICE: September 20, 2022 TIME: 3:57 PM PATIENT IDENTITY VERIFICATION COMPLETED USING TWO (2) STANDARD IDENTIFIERS: Name and Date of confirmed by patient verbally. FALL SCREENING: Has the patient had 2 falls in the last year or 1 fall with injury or currently using an Ambulatory Assistive Device (Walker, Cane, Wheelchair, Crutches, etc.)? No PATIENT GENDER DATA: Female. status: : No status: NO. PATIENT RELEVANT IMPLANT DATA REVIEWED: Yes ALLERGIES: Reviewed and unchanged CONTRAST ALLERGY: NO. EXAM: CT -CONTRAST INDUCED NEPHROPATHY RISK FACTORS: Patient age > 60 years CREATININE: Creatinine Date Value Ref Range Status 09/20/2022 0.96 0.58 - 0.96 mg/dL Final Estimated Glomerular Filtration Rate Date Value Ref Range Status 09/20/2022 62 >=60 mL/min/1.73m Final Comment: Estimated Glomerular Filtration Rate (eGFR) is calculated using the 2020 CKD-EPI creatinine equation. This equation utilizes serum creatinine, sex, and age as parameters. The creatinine assay has traceable calibration to isotope dilution-mass spectrometry. Refer to KDIGO guidelines for clinical interpretation. In patients with unstable renal function, e.g. those with acute kidney injury, the eGFR may not accurately reflect actual GFR. P.O.C.T. RESULTS: POC done: Yes, See Lab Tab September 20, 2022 TREATMENT: N/A PERIPHERAL IV DATA: Ambulatory: A peripheral IV was started in the Left antecubital site with a Angio cath: 18 gauge. RADIOLOGY DEPARTMENT: CT; Exam(s) Completed: Kidney and Pelvis SIGNATURE: RT Inocencia(R) PATIENT NAME: Tanisha Rutherford DATE: September 20, 2022 TIME: 3:57 PM documented in this encounter [facility] 09-19-2022 History and physical note UPDATED HISTORY AND PHYSICAL EXAMINATION SERVICE DATE: 09/19/2022 SERVICE TIME: 9:39 PHYSICAL EXAM MUST BE COMPLETED ON ADMISSION The History and Physical (completed in the past 30 days) has been reviewed and the patient has been examined. The contents accurately reflect the patient's condition with the following additions or revisions since the H&P was completed. Examination indicates no changes. This H&P can be found in the Electronic Medical Record . SIGNATURE: Danica Smith MD PATIENT NAME: Tanisha Rutherford DATE: September 19, 2022 TIME: 9:39 AM Source Note - Danica Smith MD - 09/19/2022 10:30 AM EST Images from the original note were not included. HISTORY AND PHYSICAL Tanisha Rutherford 1945 REFERRING PHYSICIAN: No ref. provider found CHIEF COMPLAINT: Consult (Vomiting, diarrhea, constipation for months ) HPI: The patient is a 76 year old female referred for endoscopy. Tanisha notes issues related to alternating between constipation and diarrhea. She states she never has normal bowel movements. She states she has lots of bowel mucus and during diarrhea no significant cramping. The patient notes that when she coughs or has a gagging sensation she then gets reflux and starts heaving. She will vomit this may or may not be related to nausea. She notes lots of gas and distention especially in her mid to upper abdomen notes worsening discomfort if she bends from the waist. She notes that as a result she has been afraid to eat food as when she does this because her abdominal cramping and diarrhea. She also notes that all food now taste relatively bad to her. She notes that she can drink sugar-based bright but all other liquids are a challenge and even she notes nausea with drinking water. She notes fatigue. Her weight is decreased from 270 to 241 pounds. She is happy with her weight loss she feels that this is due to the above symptoms. She was started on Pepcid 20 mg and Nexium 40 mg. She has this was initially helping but then a week ago all her symptoms returned. Tanisha has undergone prior endoscopy. There went colonoscopy she does not quite remember when this happened. She has never had upper endoscopy. The patient is being seen by me today at the request of Dr. Jass Lloyd MD for my opinion and advice regarding weight loss, abdominal bloating constipation diarrhea abdominal complaints. PAST MEDICAL HISTORY PAST MEDICAL HISTORY Diagnosis Date Diabetes mellitus (HCC) Fibromyalgia Hypothyroid Psoriatic arthritis (HCC) Rheumatoid arthritis (HCC) PAST SURGICAL HISTORY PAST SURGICAL HISTORY Procedure Laterality Date CATARACT EXTRACTION HX bilateral eyes CHOLECYSTECTOMY 1968 and appendectomy LIG/TRNSXJ FLP TUBE ABDL/VAG APPR UNI/BI PAST SURGICAL HISTORY OF cervical core PAST SURGICAL HISTORY OF D & C x3 PAST SURGICAL HISTORY OF hysterectomy PAST SURGICAL HISTORY OF carpal tunnel surgery on right wrist and trigger finger surgery CURRENT MEDICATIONS Current Outpatient Medications Medication Sig famotidine (PEPCID) 20 mg tablet take 1 tablet by mouth once daily 30 TO 45 MINUTES BEFORE DINNER melatonin 10 mg cap Take 10 mg by mouth once daily. levocetirizine dihydrochloride (XYZAL ORAL) Take by mouth once daily. levothyroxine sodium (SYNTHROID ORAL) Take 200 mcg by mouth once daily. apremilast (OTEZLA ORAL) Take 30 mg by mouth twice daily. MULTIVITAMIN ORAL Take by mouth. sitagliptin phosphate (JANUVIA ORAL) Take 100 mg by mouth once daily. cetirizine HCl (ZYRTEC ORAL) Take by mouth. montelukast sodium (SINGULAIR ORAL) Take 10 mg by mouth once daily. ubidecarenone (COQ-10 ORAL) Take 100 mg by mouth once daily. pravastatin sodium (PRAVASTATIN ORAL) Take 20 mg by mouth once daily. amLODIPine-benazepril (LOTREL) 2.5-10 mg per capsule Take 1 capsule by mouth once daily. mometasone/formoterol (DULERA INHALATION) Inhale as instructed once daily. linaclotide (LINZESS ORAL) Take 290 mg by mouth as needed. metronidazole (METROGEL TOPICAL) Apply to affected area. acyclovir (ZOVIRAX ORAL) Take by mouth as needed. beclomethasone dipropionate (QNASL NASAL) Use in the nose. potassium chloride ER (K-DUR, KLOR-CON) 20 mEq tablet Take 20 mEq by mouth as needed. insulin glargine (LANTUS) 100 unit/mL SUBCUTANEOUS injection Inject subcutaneously. Inject 44 units in the AM (Patient taking differently: Inject 50 Units subcutaneously. Inject 44 units in the AM) calcium carbonate 600 mg-cholecalciferol 200 units 600 mg-5 mcg (200 unit) tab Take 2 tablets by mouth once daily. furosemide 40 mg ORAL tablet Take 40 mg by mouth as needed. CETIRIZINE 10 MG TAB Take by mouth once daily. loratadine(CLARITIN 10 MG TAB) Take one(1) tablet daily as needed for allergy symptoms. esomeprazole mag trihydrate(NEXIUM 40 MG CAP) Take one(1) capsule daily. ALBUTEROL 90 MCG/ACTUATION AEROSOL INHALER Inhale 2 Puffs as instructed as needed. SHAKE WELL BEFORE USING ondansetron orally disintegrating (ZOFRAN ODT) 4 mg disintegrating tablet dissolve 1 tablet ON TONGUE every 8 hours if needed (Patient not taking: Reported on 08/29/2022) peg 3350-Electrolytes (GOLYTELY) 236-22.74-6.74 -5.86 gram suspension Take 4,000 mL by mouth one time only for 1 dose. Refer to printed prep instructions from your provider. enteric contrast (will be provided with radiology test) Take 1 Each by mouth one time only for [address] ABD/PEL WO Routine order Administer, As Directed One Time Only, via Oral, Rectal, both Oral and Rectal, Enteric Tube, Stoma or Indwelling Catheter, Enteric Contrast as designated per enteric contrast guidelines DETROL LA 4 mg 24 hr capsule TAKE 1 CAPSULE DAILY (Patient not taking: Reported on 08/29/2022) esomeprazole magnesium (NEXIUM ORAL) Take by mouth. (Patient not taking: Reported on 08/29/2022) furosemide (LASIX ORAL) Take by mouth. (Patient not taking: Reported on 08/29/2022) methocarbamol (ROBAXIN ORAL) Take by mouth. (Patient not taking: Reported on 08/29/2022) insulin glargine,hum.rec.anlog (LANTUS SUBCUTANEOUS) Inject subcutaneously. (Patient not taking: Reported on 08/29/2022) CALCIUM ORAL Take by mouth. (Patient not taking: Reported on 08/29/2022) POTASSIUM CHLORIDE ORAL Take by mouth. (Patient not taking: Reported on 08/29/2022) glucosamine sulfate (GLUCOSAMINE ORAL) Take by mouth. (Patient not taking: Reported on 08/29/2022) GABAPENTIN ORAL Take by mouth. (Patient not taking: Reported on 08/29/2022) albuterol sulfate (PROVENTIL INHALATION) Inhale as instructed. (Patient not taking: Reported on 08/29/2022) ACYCLOVIR ORAL Take by mouth. (Patient not taking: Reported on 08/29/2022) hydrocortisone (PROCTOSOL HC RECTAL) by RECTAL route. (Patient not taking: Reported on 08/29/2022) nystatin (MYCOSTATIN) cream Apply to affected area twice daily. (Patient not taking: Reported on 08/29/2022) METHOCARBAMOL ORAL Take by mouth. (Patient not taking: Reported on 08/29/2022) MEDICATION, NON-DATABASE Medical Marijuana (Patient not taking: Reported on 08/29/2022) mirabegron (MYRBETRIQ) 25 mg Tb24 Take 1 tablet by mouth once daily. (Patient not taking: Reported on 08/29/2022) beclomethasone dipropionate 80 mcg/actuation Use in the nose. (Patient not taking: Reported on 08/29/2022) Hydrocodone-Acetaminophen 5-500 mg cap Take by mouth. (Patient not taking: Reported on 08/29/2022) niacin sustained release (SLO-NIACIN) 500 mg ORAL tablet Take 1 tablet by mouth twice daily with meals. (Patient not taking: Reported on 04/30/2019 ) levothyroxine 175 mcg ORAL tablet Take by mouth. 8.5 tabs per week (Patient not taking: Reported on 08/29/2022) glimepiride (AMARYL) 4 mg ORAL tablet Take 1 tablet by mouth twice daily with meals. (Patient not taking: Reported on 04/30/2019 ) pioglitazone (ACTOS) 45 mg ORAL tablet Take 1 tablet by mouth once daily. (Patient not taking: Reported on 04/30/2019 ) enalapril (VASOTEC) 20 mg ORAL tablet Take 1 tablet by mouth once daily. (Patient not taking: Reported on 04/30/2019 ) Insulin Syringe-Needle U-100 0.5 mL 31 x 3/8 Misc Syrg once a day (Patient not taking: Reported on 04/30/2019 ) blood sugar diagnostic (FREESTYLE LITE STRIPS) Misc test strip TEST BLOOD SUGARS once daily (Patient not taking: Reported on 04/30/2019 ) Azelastine HCl (OPTIVAR) 0.05 % ophthalmic solution 1 Drop as needed. (Patient not taking: Reported on 08/29/2022) celecoxib (CELEBREX) 200 mg capsule one tablet twice daily (Patient not taking: Reported on 08/29/2022) ranitidine 150 mg ORAL TbEF Take one(1) tablet daily. (Patient not taking: Reported on 08/29/2022) Insulin Syringe-Needle U-100 0.5 mL 31 x 3/8 Misc Syrg use as directed (Patient not taking: No sig reported) Fish Oil-DHA-EPA 1,200-144-216 mg ORAL Cap Take one(1) tablet daily. (Patient not taking: Reported on 08/29/2022) montelukast sodium(SINGULAIR 10 MG TAB) Take one(1) tablet daily at bedtime. (Patient not taking: Reported on 08/29/2022) latanoprost(XALATAN 0.005 % EYE DROPS) Place one(1) drop in the affected eye(s) once daily at bedtime. (Patient not taking: Reported on 08/29/2022) aspirin(ECOTRIN LOW STRENGTH 81 MG TAB) Take one(1) tablet daily. (Patient not taking: Reported on 08/29/2022) MULTIVITAMIN TAB Take one(1) tablet daily. (Patient not taking: Reported on 08/29/2022) No current facility-administered medications for this visit. ALLERGIES: Bee Sting, Environmental [Other], Ketek [Telithromycin], Penicillins, and Soap PERSONAL HISTORY: SOCIAL HISTORY Social History Tobacco Use Smoking status: Former Smokeless tobacco: Never Vaping Use Vaping Use: Never used Substance Use Topics Alcohol use: Yes Comment: rarely Drug use: No FAMILY HISTORY: FAMILY HISTORY FAMILY HISTORY Problem Relation Age of Onset Diabetes Father Heart Paternal Grandmother REVIEW OF SYMPTOMS: The review of systems data was entered by the nurse and reviewed by nm Nursing Notes: Ciara Kennedy LPN 08/29/2022 11:24 AM Signed REVIEW OF SYSTEMS: General: The patient denies fatigue, notes weight loss, denies weight gain, denies feeling hot, and denies feelings of cold. Eyes: The patient denies glaucoma, denies eye injury/surgery, wears glasses or contacts. Ear/Nose/Throat: The patient notes allergies, denies hayfever, denies ear infections, and notes bloody noses. Cardiovascular: The patient denies chest pain, denies heart disease, denies high blood pressure,denies cardiac stent, denies prior heart attack, denies irregular heart beat, denies high cholesterol, denies poor circulation, denies heart failure, other cardiac issues, denies claudication, denies cold feet, denies peripheral arterial stent. Respiratory: The patient denies tuberculosis, denies pneumonia, notes frequent cough, denies pulmonary embolism, denies shortness of breath, and denies coughing up blood. Gastrointestinal: The patient denies difficulty swallowing, notes acid reflux, denies ulcers, notes vomiting, denies jaundice/hepatitis, denies gallbladder problems, notes black or tarry stools, notes hemorrhoids, denies bleeding from rectum, denies diverticulitis, notes constipation, notes diarrhea, notes loss of stool control, and denies hernias. Kidney/Bladder: The patient denies kidney stones, denies urine infections, and denies bloody urine. Skin: The patient denies a history of skin cancer, denies bleeding/changing moles, and denies a history of skin rash. Neurologic: The patient denies a history of epilepsy/convulsions, denies headaches, denies head/spinal injuries, and denies stroke/TIA. Psychiatric: The patient denies psychiatric medications, denies depression, and denies voices, denies substance abuse. Endocrine: The patient notes thyroid disorders, notes diabetes, and denies hormonal problems. Hematologic: The patient notes a history of bruising, notes bleeding, and denies anemia, denies blood clots. Infections: The patient notes a history of measles and mumps, denies rheumatic fever, and denies sexually transmitted diseases. Musculoskeletal: The patient notes back pain/injury, denies back problems, denies sciatica, denies knee/foot trouble, denies arthritis, or denies gout. When was patient's last Mammogram screening? Unknown Last Colonoscopy: unknown Ciara Kennedy LPN PHYSICAL EXAMINATION: General: The patient is 76 year old female, well nourished, well hydrated in no acute distress. The patient is oriented to time, place, and person. VITALS: Blood pressure 136/62, pulse 75, temperature 36.6 C (97.8 F), height 160 cm (5' 3 ), weight 109.3 kg (241 lb), SpO2 95 %. Body mass index is 42.69 kg/m . HEENT: Normal cephalic, ataumatic, pupils are equally round, sclera are anicteric, mucous membranes are moist, oropharynx is clear. Neck has no masses, asymmetry or lymphadenopathy. Thyroid is unremarkable. Respiratory: Clear to auscultation and percussion. Normal respiratory excursion and pattern. Cardiac: Examination is regular rate and rhythm. Abdominal exam: Soft, nontender, with no palpable masses. No hepatosplenomegaly. No palpable hernias. Rectal exam: exam deferred Extremities: no clubbing, cyanosis or edema. No adenopathy. Other: LABORATORY VALUES: As Noted RADIOLOGIC STUDIES: As Noted Assessment IMPRESSION: Weight loss, bloating, abdominal discomfort, diarrhea vomiting constipation IBS symptoms PLAN: I plan to perform upper and lower endoscopy. We discussed the risks and benefits of the planned endoscopy. I have informed the patient that complications can occur including failure to complete the endoscopy and perforation. The patient had the opportunity to ask questions concerning the planned endoscopy. My staff has also explained the procedure to the patient in understandable terms and has given the patient printed material concerning the procedure. The patient freely consents to surgery. I plan to use golytely bowel preparation for endoscopy I plan for monitored anesthetic care. Discussed with the patient that I am currently somewhat scheduled out for endoscopy at [facility] with moderate anesthetic care. Due to the patient anxiety and her concern for malignancy given a friend who had similar presentation I plan obtain a CT scan of the abdomen pelvis to assess for obvious abnormalities prior to endoscopy Diagnoses: (R63.4) Abnormal weight loss (primary encounter diagnosis) (R10.9) Abdominal pain, unspecified abdominal location A letter was sent to Dr. Jass Lloyd MD indicating the above finding for this patient. Return to Clinic: The patient is instructed to follow-up with me after the testing has been completed. Patric Torres MD Images from the original note were not included. HISTORY AND PHYSICAL Tanisha Rutherford 1945 REFERRING PHYSICIAN: No ref. provider found CHIEF COMPLAINT: Consult (Vomiting, diarrhea, constipation for months ) HPI: The patient is a 76 year old female referred for endoscopy. Tanisha notes issues related to alternating between constipation and diarrhea. She states she never has normal bowel movements. She states she has lots of bowel mucus and during diarrhea no significant cramping. The patient notes that when she coughs or has a gagging sensation she then gets reflux and starts heaving. She will vomit this may or may not be related to nausea. She notes lots of gas and distention especially in her mid to upper abdomen notes worsening discomfort if she bends from the waist. She notes that as a result she has been afraid to eat food as when she does this because her abdominal cramping and diarrhea. She also notes that all food now taste relatively bad to her. She notes that she can drink sugar-based bright but all other liquids are a challenge and even she notes nausea with drinking water. She notes fatigue. Her weight is decreased from 270 to 241 pounds. She is happy with her weight loss she feels that this is due to the above symptoms. She was started on Pepcid 20 mg and Nexium 40 mg. She has this was initially helping but then a week ago all her symptoms returned. Tanisha has undergone prior endoscopy. There went colonoscopy she does not quite remember when this happened. She has never had upper endoscopy. The patient is being seen by me today at the request of Dr. Jass Lloyd MD for my opinion and advice regarding weight loss, abdominal bloating constipation diarrhea abdominal complaints. PAST MEDICAL HISTORY PAST MEDICAL HISTORY Diagnosis Date Diabetes mellitus (HCC) Fibromyalgia Hypothyroid Psoriatic arthritis (HCC) Rheumatoid arthritis (HCC) PAST SURGICAL HISTORY PAST SURGICAL HISTORY Procedure Laterality Date CATARACT EXTRACTION HX bilateral eyes CHOLECYSTECTOMY 1968 and appendectomy LIG/TRNSXJ FLP TUBE ABDL/VAG APPR UNI/BI PAST SURGICAL HISTORY OF cervical core PAST SURGICAL HISTORY OF D & C x3 PAST SURGICAL HISTORY OF hysterectomy PAST SURGICAL HISTORY OF carpal tunnel surgery on right wrist and trigger finger surgery CURRENT MEDICATIONS Current Outpatient Medications Medication Sig famotidine (PEPCID) 20 mg tablet take 1 tablet by mouth once daily 30 TO 45 MINUTES BEFORE DINNER melatonin 10 mg cap Take 10 mg by mouth once daily. levocetirizine dihydrochloride (XYZAL ORAL) Take by mouth once daily. levothyroxine sodium (SYNTHROID ORAL) Take 200 mcg by mouth once daily. apremilast (OTEZLA ORAL) Take 30 mg by mouth twice daily. MULTIVITAMIN ORAL Take by mouth. sitagliptin phosphate (JANUVIA ORAL) Take 100 mg by mouth once daily. cetirizine HCl (ZYRTEC ORAL) Take by mouth. montelukast sodium (SINGULAIR ORAL) Take 10 mg by mouth once daily. ubidecarenone (COQ-10 ORAL) Take 100 mg by mouth once daily. pravastatin sodium (PRAVASTATIN ORAL) Take 20 mg by mouth once daily. amLODIPine-benazepril (LOTREL) 2.5-10 mg per capsule Take 1 capsule by mouth once daily. mometasone/formoterol (DULERA INHALATION) Inhale as instructed once daily. linaclotide (LINZESS ORAL) Take 290 mg by mouth as needed. metronidazole (METROGEL TOPICAL) Apply to affected area. acyclovir (ZOVIRAX ORAL) Take by mouth as needed. beclomethasone dipropionate (QNASL NASAL) Use in the nose. potassium chloride ER (K-DUR, KLOR-CON) 20 mEq tablet Take 20 mEq by mouth as needed. insulin glargine (LANTUS) 100 unit/mL SUBCUTANEOUS injection Inject subcutaneously. Inject 44 units in the AM (Patient taking differently: Inject 50 Units subcutaneously. Inject 44 units in the AM) calcium carbonate 600 mg-cholecalciferol 200 units 600 mg-5 mcg (200 unit) tab Take 2 tablets by mouth once daily. furosemide 40 mg ORAL tablet Take 40 mg by mouth as needed. CETIRIZINE 10 MG TAB Take by mouth once daily. loratadine(CLARITIN 10 MG TAB) Take one(1) tablet daily as needed for allergy symptoms. esomeprazole mag trihydrate(NEXIUM 40 MG CAP) Take one(1) capsule daily. ALBUTEROL 90 MCG/ACTUATION AEROSOL INHALER Inhale 2 Puffs as instructed as needed. SHAKE WELL BEFORE USING ondansetron orally disintegrating (ZOFRAN ODT) 4 mg disintegrating tablet dissolve 1 tablet ON TONGUE every 8 hours if needed (Patient not taking: Reported on 08/29/2022) peg 3350-Electrolytes (GOLYTELY) 236-22.74-6.74 -5.86 gram suspension Take 4,000 mL by mouth one time only for 1 dose. Refer to printed prep instructions from your provider. enteric contrast (will be provided with radiology test) Take 1 Each by mouth one time only for [address] ABD/PEL WO Routine order Administer, As Directed One Time Only, via Oral, Rectal, both Oral and Rectal, Enteric Tube, Stoma or Indwelling Catheter, Enteric Contrast as designated per enteric contrast guidelines DETROL LA 4 mg 24 hr capsule TAKE 1 CAPSULE DAILY (Patient not taking: Reported on 08/29/2022) esomeprazole magnesium (NEXIUM ORAL) Take by mouth. (Patient not taking: Reported on 08/29/2022) furosemide (LASIX ORAL) Take by mouth. (Patient not taking: Reported on 08/29/2022) methocarbamol (ROBAXIN ORAL) Take by mouth. (Patient not taking: Reported on 08/29/2022) insulin glargine,hum.rec.anlog (LANTUS SUBCUTANEOUS) Inject subcutaneously. (Patient not taking: Reported on 08/29/2022) CALCIUM ORAL Take by mouth. (Patient not taking: Reported on 08/29/2022) POTASSIUM CHLORIDE ORAL Take by mouth. (Patient not taking: Reported on 08/29/2022) glucosamine sulfate (GLUCOSAMINE ORAL) Take by mouth. (Patient not taking: Reported on 08/29/2022) GABAPENTIN ORAL Take by mouth. (Patient not taking: Reported on 08/29/2022) albuterol sulfate (PROVENTIL INHALATION) Inhale as instructed. (Patient not taking: Reported on 08/29/2022) ACYCLOVIR ORAL Take by mouth. (Patient not taking: Reported on 08/29/2022) hydrocortisone (PROCTOSOL HC RECTAL) by RECTAL route. (Patient not taking: Reported on 08/29/2022) nystatin (MYCOSTATIN) cream Apply to affected area twice daily. (Patient not taking: Reported on 08/29/2022) METHOCARBAMOL ORAL Take by mouth. (Patient not taking: Reported on 08/29/2022) MEDICATION, NON-DATABASE Medical Marijuana (Patient not taking: Reported on 08/29/2022) mirabegron (MYRBETRIQ) 25 mg Tb24 Take 1 tablet by mouth once daily. (Patient not taking: Reported on 08/29/2022) beclomethasone dipropionate 80 mcg/actuation Use in the nose. (Patient not taking: Reported on 08/29/2022) Hydrocodone-Acetaminophen 5-500 mg cap Take by mouth. (Patient not taking: Reported on 08/29/2022) niacin sustained release (SLO-NIACIN) 500 mg ORAL tablet Take 1 tablet by mouth twice daily with meals. (Patient not taking: Reported on 04/30/2019 ) levothyroxine 175 mcg ORAL tablet Take by mouth. 8.5 tabs per week (Patient not taking: Reported on 08/29/2022) glimepiride (AMARYL) 4 mg ORAL tablet Take 1 tablet by mouth twice daily with meals. (Patient not taking: Reported on 04/30/2019 ) pioglitazone (ACTOS) 45 mg ORAL tablet Take 1 tablet by mouth once daily. (Patient not taking: Reported on 04/30/2019 ) enalapril (VASOTEC) 20 mg ORAL tablet Take 1 tablet by mouth once daily. (Patient not taking: Reported on 04/30/2019 ) Insulin Syringe-Needle U-100 0.5 mL 31 x 3/8 Misc Syrg once a day (Patient not taking: Reported on 04/30/2019 ) blood sugar diagnostic (FREESTYLE LITE STRIPS) Misc test strip TEST BLOOD SUGARS once daily (Patient not taking: Reported on 04/30/2019 ) Azelastine HCl (OPTIVAR) 0.05 % ophthalmic solution 1 Drop as needed. (Patient not taking: Reported on 08/29/2022) celecoxib (CELEBREX) 200 mg capsule one tablet twice daily (Patient not taking: Reported on 08/29/2022) ranitidine 150 mg ORAL TbEF Take one(1) tablet daily. (Patient not taking: Reported on 08/29/2022) Insulin Syringe-Needle U-100 0.5 mL 31 x 3/8 Misc Syrg use as directed (Patient not taking: No sig reported) Fish Oil-DHA-EPA 1,200-144-216 mg ORAL Cap Take one(1) tablet daily. (Patient not taking: Reported on 08/29/2022) montelukast sodium(SINGULAIR 10 MG TAB) Take one(1) tablet daily at bedtime. (Patient not taking: Reported on 08/29/2022) latanoprost(XALATAN 0.005 % EYE DROPS) Place one(1) drop in the affected eye(s) once daily at bedtime. (Patient not taking: Reported on 08/29/2022) aspirin(ECOTRIN LOW STRENGTH 81 MG TAB) Take one(1) tablet daily. (Patient not taking: Reported on 08/29/2022) MULTIVITAMIN TAB Take one(1) tablet daily. (Patient not taking: Reported on 08/29/2022) No current facility-administered medications for this visit. ALLERGIES: Bee Sting, Environmental [Other], Ketek [Telithromycin], Penicillins, and Soap PERSONAL HISTORY: SOCIAL HISTORY Social History Tobacco Use Smoking status: Former Smokeless tobacco: Never Vaping Use Vaping Use: Never used Substance Use Topics Alcohol use: Yes Comment: rarely Drug use: No FAMILY HISTORY: FAMILY HISTORY FAMILY HISTORY Problem Relation Age of Onset Diabetes Father Heart Paternal Grandmother REVIEW OF SYMPTOMS: The review of systems data was entered by the nurse and reviewed by nm Nursing Notes: Ciara Kennedy LPN 08/29/2022 11:24 AM Signed REVIEW OF SYSTEMS: General: The patient denies fatigue, notes weight loss, denies weight gain, denies feeling hot, and denies feelings of cold. Eyes: The patient denies glaucoma, denies eye injury/surgery, wears glasses or contacts. Ear/Nose/Throat: The patient notes allergies, denies hayfever, denies ear infections, and notes bloody noses. Cardiovascular: The patient denies chest pain, denies heart disease, denies high blood pressure,denies cardiac stent, denies prior heart attack, denies irregular heart beat, denies high cholesterol, denies poor circulation, denies heart failure, other cardiac issues, denies claudication, denies cold feet, denies peripheral arterial stent. Respiratory: The patient denies tuberculosis, denies pneumonia, notes frequent cough, denies pulmonary embolism, denies shortness of breath, and denies coughing up blood. Gastrointestinal: The patient denies difficulty swallowing, notes acid reflux, denies ulcers, notes vomiting, denies jaundice/hepatitis, denies gallbladder problems, notes black or tarry stools, notes hemorrhoids, denies bleeding from rectum, denies diverticulitis, notes constipation, notes diarrhea, notes loss of stool control, and denies hernias. Kidney/Bladder: The patient denies kidney stones, denies urine infections, and denies bloody urine. Skin: The patient denies a history of skin cancer, denies bleeding/changing moles, and denies a history of skin rash. Neurologic: The patient denies a history of epilepsy/convulsions, denies headaches, denies head/spinal injuries, and denies stroke/TIA. Psychiatric: The patient denies psychiatric medications, denies depression, and denies voices, denies substance abuse. Endocrine: The patient notes thyroid disorders, notes diabetes, and denies hormonal problems. Hematologic: The patient notes a history of bruising, notes bleeding, and denies anemia, denies blood clots. Infections: The patient notes a history of measles and mumps, denies rheumatic fever, and denies sexually transmitted diseases. Musculoskeletal: The patient notes back pain/injury, denies back problems, denies sciatica, denies knee/foot trouble, denies arthritis, or denies gout. When was patient's last Mammogram screening? Unknown Last Colonoscopy: unknown Ciara Kennedy LPN PHYSICAL EXAMINATION: General: The patient is 76 year old female, well nourished, well hydrated in no acute distress. The patient is oriented to time, place, and person. VITALS: Blood pressure 136/62, pulse 75, temperature 36.6 C (97.8 F), height 160 cm (5' 3 ), weight 109.3 kg (241 lb), SpO2 95 %. Body mass index is 42.69 kg/m . HEENT: Normal cephalic, ataumatic, pupils are equally round, sclera are anicteric, mucous membranes are moist, oropharynx is clear. Neck has no masses, asymmetry or lymphadenopathy. Thyroid is unremarkable. Respiratory: Clear to auscultation and percussion. Normal respiratory excursion and pattern. Cardiac: Examination is regular rate and rhythm. Abdominal exam: Soft, nontender, with no palpable masses. No hepatosplenomegaly. No palpable hernias. Rectal exam: exam deferred Extremities: no clubbing, cyanosis or edema. No adenopathy. Other: LABORATORY VALUES: As Noted RADIOLOGIC STUDIES: As Noted Assessment IMPRESSION: Weight loss, bloating, abdominal discomfort, diarrhea vomiting constipation IBS symptoms PLAN: I plan to perform upper and lower endoscopy. We discussed the risks and benefits of the planned endoscopy. I have informed the patient that complications can occur including failure to complete the endoscopy and perforation. The patient had the opportunity to ask questions concerning the planned endoscopy. My staff has also explained the procedure to the patient in understandable terms and has given the patient printed material concerning the procedure. The patient freely consents to surgery. I plan to use golytely bowel preparation for endoscopy I plan for monitored anesthetic care. Discussed with the patient that I am currently somewhat scheduled out for endoscopy at [facility] with moderate anesthetic care. Due to the patient anxiety and her concern for malignancy given a friend who had similar presentation I plan obtain a CT scan of the abdomen pelvis to assess for obvious abnormalities prior to endoscopy Diagnoses: (R63.4) Abnormal weight loss (primary encounter diagnosis) (R10.9) Abdominal pain, unspecified abdominal location A letter was sent to Dr. Jass Lloyd MD indicating the above finding for this patient. Return to Clinic: The patient is instructed to follow-up with me after the testing has been completed. Patric Torres MD documented in this encounter [facility] 09-19-2022 Surgical operatio n note BRIEF OPERATIVE NOTE SURGERY DATE: 09/19/2022 Incision/Procedure Start Time: 10:20 cecal intubation time: 10:38 Incision Close/Procedure End Time: 10:51 Surgeon(s)/Proceduralist(s) and Shear Operator Helper(s): Luis Procedures: EGD with biopsies Colonoscopy with polypectomy Anesthesia: MAC Findings: transverse colon polyp, very small hiatal hernia, minimally irregular GE junction, small < 1 cm gastric fundic polyps, hemorrhoids Estimated Blood Loss: minimal Specimens: antral mucosal biopsies, gastric fundic polyp biopsy, GE junction mucosal bipsies, random mucosal biposies of colon, transverse colon polyp Complications: None Preop Diagnosis: abnormal weight loss, abdominal pain, kidney mass, change in bowel habits Postop Diagnosis: abnormal weight loss, abdominal pain, kidney mass, change in bowel habits, transverse colon polyp, hemorrhoids SIGNATURE: Danica Smith MD PATIENT NAME: Tanisha Rutherford DATE: September 19, 2022 TIME: 10:52 AM Acct: [id number] documented in this encounter [facility] 09-17-2022 Miscellaneous Notes Renal ultrasound demonstrated suspicion of solid mass worrisome for renal cell carcinoma. Attempted to call patient with results. Got voicemail. We will plan to refer patient to urology for evaluation. We will have office staff try to let patient know that there was a solid mass in the kidney and that I would refer to urology if unable to get hold of her. Thanks-Rich documented in this encounter [facility] 09-17-2022 Miscellaneous Notes Patient called back, updated per Dr Torres to go ahead with colonoscopy prep and Dr Torres will call patient later this evening. Patient voiced understanding. Ciara Kennedy LPN Brandi Rm 14 minutes ago (1:48 PM) PT calling in because she received results from her US via her [facility] today. Pt is concerned about her upcoming procedure on 09/19. She needs to start drinking the prep this afternoon. Pt wants to know, given the results of the US if she should still have the procedure as scheduled and if she should go ahead and begin her prep. Pt needs a call AURELIA so she can start her prep if needed. Please call pt and advise. Thank you! Brandi Rm Spoke with Tanisha. Reviewed Dr. Torres's message. Tanisha advised that she had the renal ultrasound completed on September 13, showing 5.8 cm left renal mass suspicious for a renal cell carcinoma . Tanisha is to start her bowel prep this afternoon for her colonoscopy tomorrow. She has concerns about proceeding with the colonoscopy and wants to you if you think it is okay. Opal Donahue RN Images from the original note were not included. Patric Torres MD You Please let the patient know that they did see her likely renal cyst on the CAT scan and they are recommending a renal ultrasound. I ordered a left renal ultrasound. Please call the patient to let her know that she should get this scheduled but its not an emergency and this does not need to happen before her colonoscopy.-Rich Called Tanisha, she was not available, left message with her to please return our call. Opal Donahue RN Images from the original note were not included. Danica Smith MD You 1 hour ago (3:34 PM) I didn't order the CT scan, so whomever ordered it - is obligated to follow up with that, thanks It does not have to be done prior to endoscopy. The anesthesia provider for the endoscopy will address the nausea issue. Called Tanisha. Reviewed Dr. Smith's message with Tanisha. Tanisha advised that Dr. Torres ordered the CT scan and she would like him to review it and advise regarding an ultrasound. Also, she has a spinal stimulator on her left posterior/flank, would that interfere with an ultrasound? Please advise. Opal Donahue RN Patient calling stating she was told by doctor who read her CT scan that patient should have an US of Kidney/Bladder done. Patient asking if this needs done prior to Colonoscopy on 09/19. Also patient states she will need some medication so she doesn't get sick from being put under. documented in this encounter [facility] 09-13-2022 Note HNO ID: [id number] Author: Lisa Carreon RDMS Service: ? Author Type: Road Contractor Type: Progress Notes Filed: 09/13/2022 1:35 PM Note Text: Radiology Service Progress Note PATIENT NAME: Tanisha Rutherford DATE OF SERVICE: September 13, 2022 TIME: 1:34 PM PATIENT IDENTITY VERIFICATION COMPLETED USING TWO (2) IDENTIFIERS: Name and Date of confirmed by patient verbally. FALL SCREENING: Has the patient had 2 falls in the last year or 1 fall with injury or currently using an Ambulatory Assistive Device (Walker, Cane, Wheelchair, Crutches, etc.)? Yes, Patient High Risk for Falls What interventions were put in place to prevent falls during this visit? Offered Assistance with Transfers/Clothing and Increased Observations by Caregivers PATIENT GENDER DATA: Female. status: : No status: NO. PATIENT RELEVANT IMPLANT DATA REVIEWED: Not Applicable RADIOLOGY DEPARTMENT: Ultrasound PERIPHERAL IV DATA: Not applicable SIGNED BY: Lisa Carreon RDMS September 13, 2022 1:34 PM [facility] 09-13-2022 Note HNO ID: [id number] Author: Lisa Carreon RDMS Service: ? Author Type: Road Contractor Type: Progress Notes Filed: 09/13/2022 1:33 PM Note Text: Radiology Service Progress Note PATIENT NAME: Tanisha Rutherford DATE OF SERVICE: September 13, 2022 TIME: 1:33 PM PATIENT IDENTITY VERIFICATION COMPLETED USING TWO (2) IDENTIFIERS: Name and Date of confirmed by patient verbally. FALL SCREENING: Has the patient had 2 falls in the last year or 1 fall with injury or currently using an Ambulatory Assistive Device (Walker, Cane, Wheelchair, Crutches, etc.)? No PATIENT GENDER DATA: Female. status: : No status: NO. PATIENT RELEVANT IMPLANT DATA REVIEWED: Not Applicable RADIOLOGY DEPARTMENT: Ultrasound PERIPHERAL IV DATA: Not applicable SIGNED BY: Lisa Carreon RDMS September 13, 2022 1:33 PM [facility] 09-13-2022 History of Presen t illness Narrative Radiology Service Progress Note PATIENT NAME: Tanisha Rutherford DATE OF SERVICE: September 13, 2022 TIME: 1:34 PM PATIENT IDENTITY VERIFICATION COMPLETED USING TWO (2) IDENTIFIERS: Name and Date of confirmed by patient verbally. FALL SCREENING: Has the patient had 2 falls in the last year or 1 fall with injury or currently using an Ambulatory Assistive Device (Walker, Cane, Wheelchair, Crutches, etc.)? Yes, Patient High Risk for Falls What interventions were put in place to prevent falls during this visit? Offered Assistance with Transfers/Clothing and Increased Observations by Caregivers PATIENT GENDER DATA: Female. status: : No status: NO. PATIENT RELEVANT IMPLANT DATA REVIEWED: Not Applicable RADIOLOGY DEPARTMENT: Ultrasound PERIPHERAL IV DATA: Not applicable SIGNED BY: Lisa Carreon RDMS September 13, 2022 1:34 PM documented in this encounter [facility] 09-13-2022 Miscellaneous Notes Encounter addended by: Lisa Carreon RDMS on: 09/13/2022 1:35 PM Actions taken: Delete clinical note, Clinical Note Signed documented in this encounter [facility] 09-05-2022 Miscellaneous Notes Radiology Service Progress Note DATE OF SERVICE: September 05, 2022 TIME: 3:09 PM PATIENT IDENTITY VERIFICATION COMPLETED USING TWO (2) STANDARD IDENTIFIERS: Name and Date of confirmed by patient verbally. FALL SCREENING: Has the patient had 2 falls in the last year or 1 fall with injury or currently using an Ambulatory Assistive Device (Walker, Cane, Wheelchair, Crutches, etc.)? No PATIENT GENDER DATA: Female. status: : No status: NO. PATIENT RELEVANT IMPLANT DATA REVIEWED: Not Applicable ALLERGIES: Reviewed and unchanged CONTRAST ALLERGY: NO. EXAM: CT -CONTRAST INDUCED NEPHROPATHY RISK FACTORS: Not applicable CREATININE: No results found for: CREAT, EGFROTH, EGFRAA P.O.C.T. RESULTS: POC done: Yes, See Lab Tab September 05, 2022 TREATMENT: N/A PERIPHERAL IV DATA: Ambulatory: Not applicable RADIOLOGY DEPARTMENT: CT; Exam(s) Completed: Abdomen/Pelvis SIGNATURE: RT Mildred(Wojciech) PATIENT NAME: Tanisha Rutherford DATE: September 05, 2022 TIME: 3:09 PM documented in this encounter [facility] 08-30-2022 Miscellaneous Notes 09/19/2022 COLON/EGD JEREMIAH Patient called in to schedule upper and lower scopes. Per patient stated she cannot wait till Dr. Perez first opening which is Dec 2022. Patient stated she will take the first opening with the next provider. Stated that was with Dr. Smith in [place] and patient was okay with that. Patient scheduled 09/[address] Smith in [place]. Amairani Hoang Skin Drier Dr Torres can you please change order location to [place] documented in this encounter [facility] 08-29-2022 Note HNO ID: [id number] Author: Patric Torres MD Service: ? Author Type: Physician Type: Progress Notes Filed: 08/29/2022 8:03 PM Note Text: HISTORY AND PHYSICAL Tanisha Rutherford 1945 REFERRING PHYSICIAN: No ref. provider found CHIEF COMPLAINT: Consult (Vomiting, diarrhea, constipation for months ) HPI: The patient is a 76 year old female referred for endoscopy. Tanisha notes issues related to alternating between constipation and diarrhea. She states she never has normal bowel movements. She states she has lots of bowel mucus and during diarrhea no significant cramping. The patient notes that when she coughs or has a gagging sensation she then gets reflux and starts heaving. She will vomit this may or may not be related to nausea. She notes lots of gas and distention especially in her mid to upper abdomen notes worsening discomfort if she bends from the waist. She notes that as a result she has been afraid to eat food as when she does this because her abdominal cramping and diarrhea. She also notes that all food now taste relatively bad to her. She notes that she can drink sugar-based bright but all other liquids are a challenge and even she notes nausea with drinking water. She notes fatigue. Her weight is decreased from 270 to 241 pounds. She is happy with her weight loss she feels that this is due to the above symptoms. She was started on Pepcid 20 mg and Nexium 40 mg. She has this was initially helping but then a week ago all her symptoms returned. Tanisha has undergone prior endoscopy. There went colonoscopy she does not quite remember when this happened. She has never had upper endoscopy. The patient is being seen by me today at the request of Dr. Jass Lloyd MD for my opinion and advice regarding weight loss, abdominal bloating constipation diarrhea abdominal complaints. PAST MEDICAL HISTORY Diagnosis Date Diabetes mellitus (HCC) Fibromyalgia Hypothyroid Psoriatic arthritis (HCC) Rheumatoid arthritis (HCC) PAST SURGICAL HISTORY Procedure Laterality Date CATARACT EXTRACTION HX bilateral eyes CHOLECYSTECTOMY 1968 and appendectomy LIG/TRNSXJ FLP TUBE ABDL/VAG APPR UNI/BI PAST SURGICAL HISTORY OF cervical core PAST SURGICAL HISTORY OF D AND C x3 PAST SURGICAL HISTORY OF hysterectomy PAST SURGICAL HISTORY OF carpal tunnel surgery on right wrist and trigger finger surgery Current Outpatient Medications Medication Sig famotidine (PEPCID) 20 mg tablet take 1 tablet by mouth once daily 30 TO 45 MINUTES BEFORE DINNER melatonin 10 mg cap Take 10 mg by mouth once daily. levocetirizine dihydrochloride (XYZAL ORAL) Take by mouth once daily. levothyroxine sodium (SYNTHROID ORAL) Take 200 mcg by mouth once daily. apremilast (OTEZLA ORAL) Take 30 mg by mouth twice daily. MULTIVITAMIN ORAL Take by mouth. sitagliptin phosphate (JANUVIA ORAL) Take 100 mg by mouth once daily. cetirizine HCl (ZYRTEC ORAL) Take by mouth. montelukast sodium (SINGULAIR ORAL) Take 10 mg by mouth once daily. ubidecarenone (COQ-10 ORAL) Take 100 mg by mouth once daily. pravastatin sodium (PRAVASTATIN ORAL) Take 20 mg by mouth once daily. amLODIPine-benazepril (LOTREL) 2.5-10 mg per capsule Take 1 capsule by mouth once daily. mometasone/formoterol (DULERA INHALATION) Inhale as instructed once daily. linaclotide (LINZESS ORAL) Take 290 mg by mouth as needed. metronidazole (METROGEL TOPICAL) Apply to affected area. acyclovir (ZOVIRAX ORAL) Take by mouth as needed. beclomethasone dipropionate (QNASL NASAL) Use in the nose. potassium chloride ER (K-DUR, KLOR-CON) 20 mEq tablet Take 20 mEq by mouth as needed. insulin glargine (LANTUS) 100 unit/mL SUBCUTANEOUS injection Inject subcutaneously. Inject 44 units in the AM (Patient taking differently: Inject 50 Units subcutaneously. Inject 44 units in the AM) calcium carbonate 600 mg-cholecalciferol 200 units 600 mg-5 mcg (200 unit) tab Take 2 tablets by mouth once daily. furosemide 40 mg ORAL tablet Take 40 mg by mouth as needed. CETIRIZINE 10 MG TAB Take by mouth once daily. loratadine(CLARITIN 10 MG TAB) Take one(1) tablet daily as needed for allergy symptoms. esomeprazole mag trihydrate(NEXIUM 40 MG CAP) Take one(1) capsule daily. ALBUTEROL 90 MCG/ACTUATION AEROSOL INHALER Inhale 2 Puffs as instructed as needed. SHAKE WELL BEFORE USING ondansetron orally disintegrating (ZOFRAN ODT) 4 mg disintegrating tablet dissolve 1 tablet ON TONGUE every 8 hours if needed (Patient not taking: Reported on 08/29/2022) peg 3350-Electrolytes (GOLYTELY) 236-22.74-6.74 -5.86 gram suspension Take 4,000 mL by mouth one time only for 1 dose. Refer to printed prep instructions from your provider. enteric contrast (will be provided with radiology test) Take 1 Each by mouth one time only for [address] ABD/PEL WO Routine order Administer, As Directed One Time Only, via Oral, Rectal, both Oral and Rectal, Enteric Tube, St (more content not included)... [facility] 08-29-2022 History of Presen t illness Narrative HISTORY AND PHYSICAL Tanisha Rutherford 1945 REFERRING PHYSICIAN: No ref. provider found CHIEF COMPLAINT: Consult (Vomiting, diarrhea, constipation for months ) HPI: The patient is a 76 year old female referred for endoscopy. Tanisha notes issues related to alternating between constipation and diarrhea. She states she never has normal bowel movements. She states she has lots of bowel mucus and during diarrhea no significant cramping. The patient notes that when she coughs or has a gagging sensation she then gets reflux and starts heaving. She will vomit this may or may not be related to nausea. She notes lots of gas and distention especially in her mid to upper abdomen notes worsening discomfort if she bends from the waist. She notes that as a result she has been afraid to eat food as when she does this because her abdominal cramping and diarrhea. She also notes that all food now taste relatively bad to her. She notes that she can drink sugar-based bright but all other liquids are a challenge and even she notes nausea with drinking water. She notes fatigue. Her weight is decreased from 270 to 241 pounds. She is happy with her weight loss she feels that this is due to the above symptoms. She was started on Pepcid 20 mg and Nexium 40 mg. She has this was initially helping but then a week ago all her symptoms returned. Tanisha has undergone prior endoscopy. There went colonoscopy she does not quite remember when this happened. She has never had upper endoscopy. The patient is being seen by me today at the request of Dr. Jass Lloyd MD for my opinion and advice regarding weight loss, abdominal bloating constipation diarrhea abdominal complaints. PAST MEDICAL HISTORY Diagnosis Date Diabetes mellitus (HCC) Fibromyalgia Hypothyroid Psoriatic arthritis (HCC) Rheumatoid arthritis (HCC) PAST SURGICAL HISTORY Procedure Laterality Date CATARACT EXTRACTION HX bilateral eyes CHOLECYSTECTOMY 1968 and appendectomy LIG/TRNSXJ FLP TUBE ABDL/VAG APPR UNI/BI PAST SURGICAL HISTORY OF cervical core PAST SURGICAL HISTORY OF D & C x3 PAST SURGICAL HISTORY OF hysterectomy PAST SURGICAL HISTORY OF carpal tunnel surgery on right wrist and trigger finger surgery Current Outpatient Medications Medication Sig famotidine (PEPCID) 20 mg tablet take 1 tablet by mouth once daily 30 TO 45 MINUTES BEFORE DINNER melatonin 10 mg cap Take 10 mg by mouth once daily. levocetirizine dihydrochloride (XYZAL ORAL) Take by mouth once daily. levothyroxine sodium (SYNTHROID ORAL) Take 200 mcg by mouth once daily. apremilast (OTEZLA ORAL) Take 30 mg by mouth twice daily. MULTIVITAMIN ORAL Take by mouth. sitagliptin phosphate (JANUVIA ORAL) Take 100 mg by mouth once daily. cetirizine HCl (ZYRTEC ORAL) Take by mouth. montelukast sodium (SINGULAIR ORAL) Take 10 mg by mouth once daily. ubidecarenone (COQ-10 ORAL) Take 100 mg by mouth once daily. pravastatin sodium (PRAVASTATIN ORAL) Take 20 mg by mouth once daily. amLODIPine-benazepril (LOTREL) 2.5-10 mg per capsule Take 1 capsule by mouth once daily. mometasone/formoterol (DULERA INHALATION) Inhale as instructed once daily. linaclotide (LINZESS ORAL) Take 290 mg by mouth as needed. metronidazole (METROGEL TOPICAL) Apply to affected area. acyclovir (ZOVIRAX ORAL) Take by mouth as needed. beclomethasone dipropionate (QNASL NASAL) Use in the nose. potassium chloride ER (K-DUR, KLOR-CON) 20 mEq tablet Take 20 mEq by mouth as needed. insulin glargine (LANTUS) 100 unit/mL SUBCUTANEOUS injection Inject subcutaneously. Inject 44 units in the AM (Patient taking differently: Inject 50 Units subcutaneously. Inject 44 units in the AM) calcium carbonate 600 mg-cholecalciferol 200 units 600 mg-5 mcg (200 unit) tab Take 2 tablets by mouth once daily. furosemide 40 mg ORAL tablet Take 40 mg by mouth as needed. CETIRIZINE 10 MG TAB Take by mouth once daily. loratadine(CLARITIN 10 MG TAB) Take one(1) tablet daily as needed for allergy symptoms. esomeprazole mag trihydrate(NEXIUM 40 MG CAP) Take one(1) capsule daily. ALBUTEROL 90 MCG/ACTUATION AEROSOL INHALER Inhale 2 Puffs as instructed as needed. SHAKE WELL BEFORE USING ondansetron orally disintegrating (ZOFRAN ODT) 4 mg disintegrating tablet dissolve 1 tablet ON TONGUE every 8 hours if needed (Patient not taking: Reported on 08/29/2022) peg 3350-Electrolytes (GOLYTELY) 236-22.74-6.74 -5.86 gram suspension Take 4,000 mL by mouth one time only for 1 dose. Refer to printed prep instructions from your provider. enteric contrast (will be provided with radiology test) Take 1 Each by mouth one time only for [address] ABD/PEL WO Routine order Administer, As Directed One Time Only, via Oral, Rectal, both Oral and Rectal, Enteric Tube, Stoma or Indwelling Catheter, Enteric Contrast as designated per enteric contrast guidelines DETROL LA 4 mg 24 hr capsule TAKE 1 CAPSULE DAILY (Patient not taking: Reported on 08/29/2022) esomeprazole magnesium (NEXIUM ORAL) Take by mouth. (Patient not taking: Reported on 08/29/2022) furosemide (LASIX ORAL) Take by mouth. (Patient not taking: Reported on 08/29/2022) methocarbamol (ROBAXIN ORAL) Take by mouth. (Patient not taking: Reported on 08/29/2022) insulin glargine,hum.rec.anlog (LANTUS SUBCUTANEOUS) Inject subcutaneously. (Patient not taking: Reported on 08/29/2022) CALCIUM ORAL Take by mouth. (Patient not taking: Reported on 08/29/2022) POTASSIUM CHLORIDE ORAL Take by mouth. (Patient not taking: Reported on 08/29/2022) glucosamine sulfate (GLUCOSAMINE ORAL) Take by mouth. (Patient not taking: Reported on 08/29/2022) GABAPENTIN ORAL Take by mouth. (Patient not taking: Reported on 08/29/2022) albuterol sulfate (PROVENTIL INHALATION) Inhale as instructed. (Patient not taking: Reported on 08/29/2022) ACYCLOVIR ORAL Take by mouth. (Patient not taking: Reported on 08/29/2022) hydrocortisone (PROCTOSOL HC RECTAL) by RECTAL route. (Patient not taking: Reported on 08/29/2022) nystatin (MYCOSTATIN) cream Apply to affected area twice daily. (Patient not taking: Reported on 08/29/2022) METHOCARBAMOL ORAL Take by mouth. (Patient not taking: Reported on 08/29/2022) MEDICATION, NON-DATABASE Medical Marijuana (Patient not taking: Reported on 08/29/2022) mirabegron (MYRBETRIQ) 25 mg Tb24 Take 1 tablet by mouth once daily. (Patient not taking: Reported on 08/29/2022) beclomethasone dipropionate 80 mcg/actuation Use in the nose. (Patient not taking: Reported on 08/29/2022) Hydrocodone-Acetaminophen 5-500 mg cap Take by mouth. (Patient not taking: Reported on 08/29/2022) niacin sustained release (SLO-NIACIN) 500 mg ORAL tablet Take 1 tablet by mouth twice daily with meals. (Patient not taking: Reported on 04/30/2019 ) levothyroxine 175 mcg ORAL tablet Take by mouth. 8.5 tabs per week (Patient not taking: Reported on 08/29/2022) glimepiride (AMARYL) 4 mg ORAL tablet Take 1 tablet by mouth twice daily with meals. (Patient not taking: Reported on 04/30/2019 ) pioglitazone (ACTOS) 45 mg ORAL tablet Take 1 tablet by mouth once daily. (Patient not taking: Reported on 04/30/2019 ) enalapril (VASOTEC) 20 mg ORAL tablet Take 1 tablet by mouth once daily. (Patient not taking: Reported on 04/30/2019 ) Insulin Syringe-Needle U-100 0.5 mL 31 x 3/8 Misc Syrg once a day (Patient not taking: Reported on 04/30/2019 ) blood sugar diagnostic (FREESTYLE LITE STRIPS) Misc test strip TEST BLOOD SUGARS once daily (Patient not taking: Reported on 04/30/2019 ) Azelastine HCl (OPTIVAR) 0.05 % ophthalmic solution 1 Drop as needed. (Patient not taking: Reported on 08/29/2022) celecoxib (CELEBREX) 200 mg capsule one tablet twice daily (Patient not taking: Reported on 08/29/2022) ranitidine 150 mg ORAL TbEF Take one(1) tablet daily. (Patient not taking: Reported on 08/29/2022) Insulin Syringe-Needle U-100 0.5 mL 31 x 3/8 Misc Syrg use as directed (Patient not taking: No sig reported) Fish Oil-DHA-EPA 1,200-144-216 mg ORAL Cap Take one(1) tablet daily. (Patient not taking: Reported on 08/29/2022) montelukast sodium(SINGULAIR 10 MG TAB) Take one(1) tablet daily at bedtime. (Patient not taking: Reported on 08/29/2022) latanoprost(XALATAN 0.005 % EYE DROPS) Place one(1) drop in the affected eye(s) once daily at bedtime. (Patient not taking: Reported on 08/29/2022) aspirin(ECOTRIN LOW STRENGTH 81 MG TAB) Take one(1) tablet daily. (Patient not taking: Reported on 08/29/2022) MULTIVITAMIN TAB Take one(1) tablet daily. (Patient not taking: Reported on 08/29/2022) No current facility-administered medications for this visit. ALLERGIES: Bee Sting, Environmental [Other], Ketek [Telithromycin], Penicillins, and Soap PERSONAL HISTORY: Social History Tobacco Use Smoking status: Former Smokeless tobacco: Never Vaping Use Vaping Use: Never used Substance Use Topics Alcohol use: Yes Comment: rarely Drug use: No FAMILY HISTORY: FAMILY HISTORY Problem Relation Age of Onset Diabetes Father Heart Paternal Grandmother REVIEW OF SYMPTOMS: The review of systems data was entered by the nurse and reviewed by nm Nursing Notes: Ciara Kennedy LPN 08/29/2022 11:24 AM Signed REVIEW OF SYSTEMS: General: The patient denies fatigue, notes weight loss, denies weight gain, denies feeling hot, and denies feelings of cold. Eyes: The patient denies glaucoma, denies eye injury/surgery, wears glasses or contacts. Ear/Nose/Throat: The patient notes allergies, denies hayfever, denies ear infections, and notes bloody noses. Cardiovascular: The patient denies chest pain, denies heart disease, denies high blood pressure,denies cardiac stent, denies prior heart attack, denies irregular heart beat, denies high cholesterol, denies poor circulation, denies heart failure, other cardiac issues, denies claudication, denies cold feet, denies peripheral arterial stent. Respiratory: The patient denies tuberculosis, denies pneumonia, notes frequent cough, denies pulmonary embolism, denies shortness of breath, and denies coughing up blood. Gastrointestinal: The patient denies difficulty swallowing, notes acid reflux, denies ulcers, notes vomiting, denies jaundice/hepatitis, denies gallbladder problems, notes black or tarry stools, notes hemorrhoids, denies bleeding from rectum, denies diverticulitis, notes constipation, notes diarrhea, notes loss of stool control, and denies hernias. Kidney/Bladder: The patient denies kidney stones, denies urine infections, and denies bloody urine. Skin: The patient denies a history of skin cancer, denies bleeding/changing moles, and denies a history of skin rash. Neurologic: The patient denies a history of epilepsy/convulsions, denies headaches, denies head/spinal injuries, and denies stroke/TIA. Psychiatric: The patient denies psychiatric medications, denies depression, and denies voices, denies substance abuse. Endocrine: The patient notes thyroid disorders, notes diabetes, and denies hormonal problems. Hematologic: The patient notes a history of bruising, notes bleeding, and denies anemia, denies blood clots. Infections: The patient notes a history of measles and mumps, denies rheumatic fever, and denies sexually transmitted diseases. Musculoskeletal: The patient notes back pain/injury, denies back problems, denies sciatica, denies knee/foot trouble, denies arthritis, or denies gout. When was patient's last Mammogram screening? Unknown Last Colonoscopy: unknown Ciara Kennedy LPN PHYSICAL EXAMINATION: General: The patient is 76 year old female, well nourished, well hydrated in no acute distress. The patient is oriented to time, place, and person. VITALS: Blood pressure 136/62, pulse 75, temperature 36.6 C (97.8 F), height 160 cm (5' 3 ), weight 109.3 kg (241 lb), SpO2 95 %. Body mass index is 42.69 kg/m . HEENT: Normal cephalic, ataumatic, pupils are equally round, sclera are anicteric, mucous membranes are moist, oropharynx is clear. Neck has no masses, asymmetry or lymphadenopathy. Thyroid is unremarkable. Respiratory: Clear to auscultation and percussion. Normal respiratory excursion and pattern. Cardiac: Examination is regular rate and rhythm. Abdominal exam: Soft, nontender, with no palpable masses. No hepatosplenomegaly. No palpable hernias. Rectal exam: exam deferred Extremities: no clubbing, cyanosis or edema. No adenopathy. Other: LABORATORY VALUES: As Noted RADIOLOGIC STUDIES: As Noted Assessment IMPRESSION: Weight loss, bloating, abdominal discomfort, diarrhea vomiting constipation IBS symptoms PLAN: I plan to perform upper and lower endoscopy. We discussed the risks and benefits of the planned endoscopy. I have informed the patient that complications can occur including failure to complete the endoscopy and perforation. The patient had the opportunity to ask questions concerning the planned endoscopy. My staff has also explained the procedure to the patient in understandable terms and has given the patient printed material concerning the procedure. The patient freely consents to surgery. I plan to use golytely bowel preparation for endoscopy I plan for monitored anesthetic care. Discussed with the patient that I am currently somewhat scheduled out for endoscopy at [facility] with moderate anesthetic care. Due to the patient anxiety and her concern for malignancy given a friend who had similar presentation I plan obtain a CT scan of the abdomen pelvis to assess for obvious abnormalities prior to endoscopy Diagnoses: (R63.4) Abnormal weight loss (primary encounter diagnosis) (R10.9) Abdominal pain, unspecified abdominal location A letter was sent to Dr. Jass Lloyd MD indicating the above finding for this patient. Return to Clinic: The patient is instructed to follow-up with me after the testing has been completed. Patric Torres MD documented in this encounter [facility] 08-29-2022 Instructions Patric Torres MD - 08/29/2022 12:51 PM EDT Images from the original note were not included. Bowel Preparation Instructions for: Golytely, Nulytely, Trilyte or Colyte (polyethylene glycol 3350 and electrolytes) IF YOU DO NOT FOLLOW THESE DIRECTIONS, YOUR COLONOSCOPY WILL BE CANCELLED. Gerard Instructions: Your bowel must be empty so that your doctor can clearly view your colon. Follow all of the instructions in this handout EXACTLY as they are written. Do NOT eat any solid food the ENTIRE day before your colonoscopy. Drink only clear liquids. Buy your bowel preparation at least 5 days before your colonoscopy. TRANSPORTATION on the Day of Your Exam A responsible person MUST be present with you at Check In prior to your colonoscopy and REMAIN in the endoscopy area until you are discharged. You are NOT ALLOWED to drive, take a taxi or bus, or leave the Endoscopy Center ALONE. If you do not have a responsible tow car driver (family member or friend) with you to take you home, your exam cannot be done with sedation and will be cancelled. Please bring a list of all of your current medications, including any Over-the Counter medications with you. Medications If you take insulin, diabetic medications or blood thinners such as Coumadin (warfarin), Plavix (clopidogrel), Ticlid (ticlopidine hydrochloride), Agrylin (anagrelide), Xarelto (Rivaroxaban), Pradaxa (Dabigatran), Eliquis (Apixaban), and Effient (Prasugrel). You MUST call the doctors who orders those medicines for instructions on altering the dosage before your colonoscopy. All other medications should be taken the day of the exam with a sip of water including ASPIRIN. Five (5) Days Before Your Colonoscopy Do NOT take medicines that stop diarrhea - such as Imodium, Kaopectate, or Pepto Bismol. Do NOT take fiber supplements - such as Metamucil, Citrucel, or Perdiem. Do NOT take products that contain iron - such as multi-vitamins (the label lists what is in the products). Do NOT take Vitamin E. Buy the prescription bowel preparation solution at your local pharmacy or drugstore pharmacy. 1 10/2019 Bowel Preparation Instructions for: Golytely, Nulytely, Trilyte or Colyte (polyethylene glycol 3350 and electrolytes) Three (3) Days Before Your Colonoscopy Do NOT eat high-fiber foods - such as popcorn, beans, seeds (flax, sunflower, quinoa), multigrain bread, nuts, salad/vegetables, or fresh and dried fruit. One (1) Day Before Your Colonoscopy Only drink clear liquids the ENTIRE DAY before your colonoscopy. Do NOT eat any solid foods. Drink at least 8 ounces of clear liquids every hour after waking up. The clear liquids you can drink include: Clear Liquid (NO RED LIQUIDS) DO NOT DRINK Gatorade, Pedialyte or Powerade Clear broth or bouillon Coffee or tea (no milk or non-dairy creamer) Carbonated and non-carbonated soft drinks Chilo-Aid or other fruit flavored drinks Strained fruit juices (no pulp) Jell-O, popsicles, hard candy Water Alcohol Milk or non-dairy creamers Noodles or vegetables in soup Juice with pulp Liquid you cannot see through Do not use tobacco/vaping products The bowel preparation solution will be consumed in two parts. Mix the solution the evening before your colonoscopy and refrigerate before drinking. You may add the flavor pack that came with the bowel preparation. Do NOT add ice, sugar or any other flavorings to the solution. Part 1 At 6:00 PM - 2 Evenings before your colonoscopy Drink an 8-oz glass of bowel preparation every 10 minutes for a total of 8 glasses. Part 2 At 6:00 PM - Evening before your colonoscopy Drink an 8-oz glass of bowel preparation every 10 minutes for a total of 8 glasses. You may continue to drink clear liquids until midnight. 2 10/2019 documented in this encounter [facility] 08-29-2022 Nurse Note REVIEW OF SYSTEMS: General: The patient denies fatigue, notes weight loss, denies weight gain, denies feeling hot, and denies feelings of cold. Eyes: The patient denies glaucoma, denies eye injury/surgery, wears glasses or contacts. Ear/Nose/Throat: The patient notes allergies, denies hayfever, denies ear infections, and notes bloody noses. Cardiovascular: The patient denies chest pain, denies heart disease, denies high blood pressure,denies cardiac stent, denies prior heart attack, denies irregular heart beat, denies high cholesterol, denies poor circulation, denies heart failure, other cardiac issues, denies claudication, denies cold feet, denies peripheral arterial stent. Respiratory: The patient denies tuberculosis, denies pneumonia, notes frequent cough, denies pulmonary embolism, denies shortness of breath, and denies coughing up blood. Gastrointestinal: The patient denies difficulty swallowing, notes acid reflux, denies ulcers, notes vomiting, denies jaundice/hepatitis, denies gallbladder problems, notes black or tarry stools, notes hemorrhoids, denies bleeding from rectum, denies diverticulitis, notes constipation, notes diarrhea, notes loss of stool control, and denies hernias. Kidney/Bladder: The patient denies kidney stones, denies urine infections, and denies bloody urine. Skin: The patient denies a history of skin cancer, denies bleeding/changing moles, and denies a history of skin rash. Neurologic: The patient denies a history of epilepsy/convulsions, denies headaches, denies head/spinal injuries, and denies stroke/TIA. Psychiatric: The patient denies psychiatric medications, denies depression, and denies voices, denies substance abuse. Endocrine: The patient notes thyroid disorders, notes diabetes, and denies hormonal problems. Hematologic: The patient notes a history of bruising, notes bleeding, and denies anemia, denies blood clots. Infections: The patient notes a history of measles and mumps, denies rheumatic fever, and denies sexually transmitted diseases. Musculoskeletal: The patient notes back pain/injury, denies back problems, denies sciatica, denies knee/foot trouble, denies arthritis, or denies gout. When was patient's last Mammogram screening? Unknown Last Colonoscopy: unknown Ciara Kennedy LPN documented in this encounter [facility] 02-05-2022 Miscellaneous Notes PSS: Please contact patient to schedule an exam. Thank you. Amalia Cowan RN Has not been seen since 2019. Will not refill until seen in the office for yearly exam. Ok to schedule with any provider. See pharmacy generated refill request. Pt was last seen in the office on 04/30/19. Please advise. Constance Garcia LPN documented in this encounter [facility] 04-05-2021 Note Discharge Summary Tanisha Nash Rutherford : 1945 ADMIT DATE: 04/04/2021 DISCHARGE DATE: 04/05/2021 PRIMARY CARE PHYSICIAN: Jass Solo DO VISIT STATUS: Observation CODE STATUS: Full Code DISCHARGE DIAGNOSES: Active Problems: Psoriatic arthritis (HCC) Leg pain Resolved Problems: * No resolved hospital problems. * SURGICAL PROCEDURES: THORACIC LAMINECTOMY FOR IMPLANTATION OF PADDLE LEAD SPINE STIMULATOR, USE OF [employer] DEVICE by Dr Rowley on 04/04/2021. HOSPITAL COURSE: The patient was admitted to the hospital on the day of surgery and underwent the above noted procedure. Post-operatively, the patient was transferred to the PACU in stable condition and then to [facility]. They received 24 hours of prophylactic intravenous antibiotics. DVT prophylaxis included SCDs and early ambulation. Diet was advanced, patient was ambulated and able to urinate, and pain was reasonably controlled. The patient progressed well throughout the hospitalization and was deemed stable for discharge to home on the above listed date. CONSULTANTS: Internal Medicine Acute pain service PT/OT DISCHARGE MEDICATIONS: Tanisha Rutherford Home Medication Instructions PURVI:[id number] Printed on:04/05/21 1241 Medication Information acyclovir (ZOVIRAX) 5 % ointment Apply topically Apply topically every 3 hours.prn acyclovir (ZOVIRAX) 800 MG tablet Take 800 mg by mouth 2 times daily FOR HERPES , prn Albuterol (PROVENTIL IN) Inhale into the lungs prn amLODIPine-benazepril (LOTREL) 5-20 MG per capsule Take 1 capsule by mouth daily Apremilast (OTEZLA) 30 MG TABS Take 30 mg by mouth 2 times daily calcium carbonate 600 MG TABS tablet Take 1 tablet by mouth daily CARVEDILOL PO Take 20 mg by mouth daily cetirizine (ZYRTEC) 10 MG tablet Take 10 mg by mouth daily Cholecalciferol (VITAMIN D) 50 MCG (2000 UT) CAPS capsule Take by mouth daily Coenzyme Q10 (COQ10) 100 MG CAPS Take by mouth daily 200 mg Ferrous Sulfate (IRON PO) Take 65 mg by mouth daily furosemide (LASIX) 40 MG tablet Take 40 mg by mouth as needed gabapentin (NEURONTIN) 400 MG capsule Take 400 mg by mouth daily. Glucosamine HCl (GLUCOSAMINE PO) Take by mouth 2 1 TIME A DAY hydrocortisone (PROCTOSOL HC) 2.5 % CREA rectal cream Place rectally 2 times daily insulin glargine (LANTUS) 100 UNIT/ML injection vial Inject 50 Units into the skin daily levocetirizine (XYZAL) 5 MG tablet Take 5 mg by mouth daily levothyroxine (SYNTHROID) 200 MCG tablet Take 200 mcg by mouth daily -friday linaclotide (LINZESS) 290 MCG CAPS capsule Take 290 mcg by mouth every morning (before breakfast) prn methocarbamol (ROBAXIN) 500 MG tablet Take 500 mg by mouth 2 times daily metroNIDAZOLE (METROGEL EX) Apply topically daily mometasone-formoterol (DULERA) 200-5 MCG/ACT inhaler Inhale 2 puffs into the lungs every 12 hours montelukast (SINGULAIR) 10 MG tablet Take 10 mg by mouth nightly Multiple Vitamin (MULTIVITAMIN ADULT PO) Take by mouth daily With iron and calcium oxyCODONE-acetaminophen (PERCOCET) 5-325 MG per tablet Take 1 tablet by mouth 3 times daily as needed for Pain. POTASSIUM CHLORIDE PO Take 10 mEq by mouth daily 2 tabs pravastatin (PRAVACHOL) 20 MG tablet Take 20 mg by mouth daily SITagliptin (JANUVIA) 100 MG tablet Take 100 mg by mouth daily tolterodine (DETROL LA) 4 MG extended release capsule Take 4 mg by mouth daily DIET: DIET GENERAL; ACTIVITY: No heavy lifting. up with assist SIGNIFICANT DIAGNOSTIC STUDIES: None COMPLEXITY OF FOLLOW UP: [x] Moderate Complexity: follow up within 7-14 calendar days (77967) [] Severe Complexity: follow up within 7 calendar days (43562) FOLLOW UP TESTING, PENDING RESULTS OR REFERRALS AT TRANSITIONAL CARE VISIT: [] Yes [x] No PENDING STUDIES: @LABRRPENDINGTESTS@ RECOMMENDED NEXT STEPS: Follow up with PCP and Dr Rowley DISPOSITION: Home Follow up with Dr. Rowley in 10-14 days for suture removal Follow up with Jass Solo DO , call to make appointment INSTRUCTIONS TO MA/SW: Please call patient on day after discharge (must document patient contacted within 2 business days of discharge). FOLLOW UP QUESTIONS FOR MA/SW: 1. Did you get medications filled and taking them as instructed from discharge? 2. Are you following your discharge instructions from your hospital stay? 3. Please confirm patient is scheduled for a follow up appointment within the above time frame. DISCHARGE TIME: < 30 minutes SIGNED: Jeffery Montero PA-C 04/05/2021, 12:41 PM [facility] 04-05-2021 History of Presen t illness Narrative Patient tolerating diet, ambulating independently with cane and voiding well. Discharge instructions reviewed with patient and her spouse. Patient expressed understanding, all questions were answered. Subjective: Doing well overall. No significant pain. Ambulating, tolerating PO intake, able to void. Wants to go home. Physical Exam: Alert and oriented Motor strength 5/5 UE and LE Sensation intact to light touch Incisions C/D/I with paras Assessment/Plan: POD1 s/p Thoracic laminectomy for implantation of spinal cord stimulator. She is recovering as expected. Will discharge to home, patient agreeable. Follow up with Dr Rowley in 10-14 days for staple removal. Jeffery Montero PA-C Physical Therapy Facility/Department: [facility] MED SURG Initial Assessment NAME: Tanisha Rutherford : 1945 Date of Service: 04/05/2021 *N95 mask and gloves worn by this PT throughout pt encounter* Discharge Recommendations: Home with assist PRN PT Equipment Recommendations Equipment Needed: No Assessment Body structures, Functions, Activity limitations: Decreased endurance Assessment: pt w/ baseline decr endurance. Noted mild SOB w/ exertion and long distance gait. No LOB. Good safety awareness w/ SBQC. Indep w/ functional mobility. No further PT needs indicated. Rec home w/ assist PRN. Prognosis: Good Decision Making: Low Complexity REQUIRES PT FOLLOW UP: No Activity Tolerance Activity Tolerance: Patient Tolerated treatment well Patient Diagnosis(es): There were no encounter diagnoses. has a past medical history of Asthma, Diabetes mellitus (HCC), Fibromyalgia, History of blood transfusion, Hyperlipidemia, Hypertension, Hypothyroidism, Lipodermatosclerosis, KARMA treated with BiPAP, Psoriatic arthritis ([facility]), Purpura ([facility]), and Rosacea. has a past surgical history that includes Gallbladder surgery; Hysterectomy; Cholecystectomy; Tubal ligation; Dilation and curettage of uterus; Colonoscopy; Intracapsular cataract extraction (Bilateral); and Spinal Cord Stimulator Surgery. Vision/Hearing Vision: Impaired Vision Exceptions: Wears glasses at all times Subjective General Chart Reviewed: Yes Patient assessed for rehabilitation services?: Yes Family / Caregiver Present: Yes (spouse) Diagnosis: psoriatic arthritis s/p thoracic lami for spine stimulator placement 04/04 Follows Commands: Within Functional Limits Subjective Subjective: pt seated EOB, agrees to PT. Has been up to bathroom indep and got self ready. Pain Screening Patient Currently in Pain: Yes (5/10 back, knees and abdomen (from lying on stomach)) Pre Treatment Pain Screening Intervention List: Patient able to continue with treatment Social/Functional History Social/Functional History Lives With: Spouse Type of Home: House Home Layout: One level Home Access: Stairs to enter with rails Entrance Stairs - Number of Steps: 3 Entrance Stairs - Rails: Both Home Equipment: Rolling walker, Quad cane Receives Help From: Family ADL Assistance: Independent Homemaking Assistance: Needs assistance Homemaking Responsibilities: No Ambulation Assistance: Independent (FWW) Transfer Assistance: Independent Active [employer] [place]: Yes Cognition Cognition Overall Cognitive Status: WFL Objective AROM RLE (degrees) RLE AROM: WFL RLE General AROM: except lacks 10 deg ankle DF AROM LLE (degrees) LLE AROM : WFL LLE General AROM: except lacks 10 deg ankle DF Strength RLE Comment: hip flex 4/5, rest WFL given range Strength LLE Comment: hip 4/5, knee 3+/5, ankle WFL given range Sensation Overall Sensation Status: WFL Transfers Sit to Stand: Modified independent Stand to sit: Modified independent Ambulation Ambulation?: Yes More Ambulation?: No Ambulation 1 Surface: level tile Device: Small Base Quad Cane Assistance: Modified Independent Gait Deviations: Slow Celine;Decreased step length Distance: 80' x2 Stairs/Curb Stairs?: Yes Stairs # Steps : 3 Stairs Height: 6 Rails: Left ascending Device: Small Base Quad Cane Assistance: Contact guard assistance Comment: cues for sequencing Balance Posture: Fair Sitting - Static: Good Sitting - Dynamic: Good Standing - Static: Good;- Standing - Dynamic: Fair;+ Plan Plan Plan Comment: disch PT Safety Devices Type of devices: All fall risk precautions in place, Left in chair, Gait belt, Call light within reach AM-PAC Score [facility] Inpatient Mobility Raw Score : 23 (04/05/21 1054) AM-[facility] Inpatient T-Scale Score : 56.93 (04/05/21 1054) Mobility Inpatient CMS 0-100% Score: 11.2 (04/05/21 1054) Mobility Inpatient CMS G-Code Modifier : CI (04/05/21 1054) Therapy Time Individual Concurrent Group Co-treatment Time In 1029 Time Out 1043 Minutes 14 Nga Arias, PT Having reviewed the physical therapy treatment plan and goals for this patient, I certify that the attached plan is medically necessary and appropriate. Again, attempt made to contact family regarding room number assignment, no answer. Attempt made to contact family regarding room number assignment, no answer. Patient sleeping, vss. Will continue to monitor Family to bedside. [employer] rep at bedside, stated stomach pain is to be expected Pt states not ready for family to be at bedside Family updated via [facility] @ [phone] Anesthesia notified pt took percocet at 0600 tylenol dose changed from 1000mg to 500mg [facility]: [facility]: Evaluation note* Diagnosis Abnormal weight loss- Primary Loss of weight Abdominal pain, unspecified abdominal location [facility] Renal mass- Primary Unspecified disorder of kidney and ureter [facility] Diagnosis Other specified disorders of kidney and ureter- Primary Renal mass, left Unspecified disorder of kidney and ureter [facility] Diagnosis Abnormal weight loss- Primary Loss of weight [facility] Diagnosis Generalized abdominal pain- Primary Abdominal pain, generalized Nausea and vomiting, unspecified vomiting type Change in bowel habits Other symptoms involving digestive system Weight loss Loss of weight Abnormal weight loss Loss of weight Abdominal pain, unspecified abdominal location [facility] Diagnosis Abnormal weight loss Loss of weight [facility] Diagnosis Abnormal weight loss Loss of weight Abdominal pain, unspecified abdominal location documented in this encounter [facility] Discharge instructions* Instructions* Jeffery Montero PA-C - 04/05/2021 Wound care: Keep incision open to air, do not apply creams or lotions to incision You may shower, but do not soak in a tub or pool Call the office immediately if you notice any drainage, pus, or signs of infection General Instructions: No lifting greater than 10 pounds for [address] while using opioid pain medications or muscle relaxants Use caution with twisting, turning, and bending motions at the waist Avoid NSAIDs such as Ibuprofen, Advil, Aleve, Naproxen, and Mobic Follow up with Dr. Rowley in 10-14 days for suture removal Call the office with any questions or concerns, documented in this [facility] Work Phone: Reason for referral (narrative)* Outpatient Procedure (Routine) - Pending Review Specialty Diagnoses / Procedures Referred By Patricia mejía Referred To Contact [facility] [place] Diagnoses Abnormal weight loss Abdominal pain, unspecified abdominal location Procedures COLONOSCOPY DIAGNOSTIC COLONOSCOPY FLX DX W/COLLJ SPEC WHEN PFRMD Patric Torres MD [address] [place] [address] [facility] [address] [address] Referral ID Status Reason Start Date Expiration Date Visits Requested Visits Authorized [id number] Pending Review Auto-Generat ed Referral 2 08/29/2023 1 1 * Outpatient Procedure (Routine) - Pending Review Specialty Diagnoses / Procedures Referred By Patricia mejía Referred To Contact [facility] [place] Diagnoses Abnormal weight loss Abdominal pain, unspecified abdominal location Procedures EGD DIAGNOSTIC ESOPHAGOGASTRODUODENOSC OPY TRANSORAL DIAGNOSTIC Patric Torres MD [address] [place] [address] [facility] [address] [address] Referral ID Status Reason Start Date Expiration Date Visits Requested Visits Authorized [id number] Pending Review Auto-Generat ed Referral 2 08/29/2023 1 1 * MRI/CT (Routine) - Authorized Specialty Diagnoses / Procedures Referred By Patricia mejía Referred To Contact CT IMAGING Diagnoses Abnormal weight loss Abdominal pain, unspecified abdominal location Procedures CT ABD/PEL WO IVCON CT ABD & PELVIS W/O CONTRAST Patric Torres MD [address] [place] [address] Ct Imaging Referral ID Status Reason Start Date Expiration Date Visits Requested Visits Authorized [id number] Authorized Auto-Generat ed Referral 09/28/2023 1 1 [facility] for referral (narrative)* Outpatient Procedure (Routine) - Closed Specialty Diagnoses / Procedures Referred By Patricia mejía Referred To Contact [facility] [place] Diagnoses Abnormal weight loss Abdominal pain, unspecified abdominal location Procedures COLONOSCOPY DIAGNOSTIC COLONOSCOPY FLX DX W/COLLJ SPEC WHEN PFRMD Patric Torres MD [address] [place] [address] [place] [address] Referral ID Status Reason Start Date Expiration Date V isits Requested Visits Authorized [id number] Closed Auto-Generate d Referral 08/29/2022 08/29/2023 1 1 * Outpatient Procedure (Routine) - Closed Specialty Diagnoses / Procedures Referred By Patricia mejía Referred To Contact [facility] [place] Diagnoses Abnormal weight loss Abdominal pain, unspecified abdominal location Procedures EGD DIAGNOSTIC ESOPHAGOGASTRODUODENOSC OPY TRANSORAL DIAGNOSTIC Patric Torres MD [address] [place] [address] [facility] [place] [id number] Referral ID Status Reason Start Date Expiration Date V isits Requested Visits Authorized [id number] Closed Auto-Generate d Referral 08/29/2022 08/29/2023 1 1 [facility] for referral (narrative)* Diagnostic Procedure Only (Routine) - Closed Specialty Diagnoses / Procedures Referred By Patricia mejía Referred To Contact [facility] Diagnoses Abnormal weight loss Abdominal pain, unspecified abdominal location Procedures US KIDNEY/BLADDER US RETROPERITONEAL REAL TIME W/IMAGE COMPLETE Patric Torres MD [address] [place] [address] [place] [address] Referral ID Status Reason Start Date Expiration Date V isits Requested Visits Authorized [id number] Closed Auto-Generate d Referral 09/11/2022 10/11/2023 1 1 [facility] for visit Narrative* Outpatient Procedure (Routine) - Closed Specialty Diagnoses / Procedures Referred By Patricia mejía Referred To Contact [facility] Diagnoses Abnormal weight loss Abdominal pain, unspecified abdominal location Procedures COLONOSCOPY DIAGNOSTIC COLONOSCOPY FLX DX W/COLLJ SPEC WHEN PFRMD Patric Torres MD [address] [place] [address] [facility] [place] [address] [place] [address] Referral ID Status Reason Start Date Expiration Date V isits Requested Visits Authorized [id number] Closed Auto-Generate d Referral 08/29/2022 08/29/2023 1 1 [facility] Advance Directives Latest Code Status on File Code Status Date Activated Date Inactivated Comments Full Code 04/04/2021 2:42 PM Full Code 04/04/2021 8:32 AM 04/04/2021 2:36 PM Summary Purpose Family History No Family History Records FoundNo Family History Records FoundNo Family History Records Found Reason for Referral Specialty Diagnoses / Procedures Referred By Patricia mejía Referred To Contact Urology Diagnoses Renal mass Procedures CONSULT TO UROLOGY Patric Torres MD [address] [place] [address] [facility] [address] [place] [address] Referral ID Status Reason Start Date Expiration Date Visits Requested Visits Authorized [id number] Ref Not Required PCP Requested Referral 09/17/2022 09/17/2023 1 1 Specialty Diagnoses / Procedures Referred By Patricia mejía Referred To Contact CT IMAGING Diagnoses Other specified disorders of kidney and ureter Procedures CT KIDNEY WO/W IVCON CT ABDOMEN W & W/O CONTRAST Jose Juan Rocha, [address] [place] [address] Ct Imaging Referral ID Status Reason Start Date Expiration Date Visits Requested Visits Authorized [id number] Pending Review Auto-Generat ed Referral 10/17/2023 1 1 Specialty Diagnoses / Procedures Referred By Patricia mejía Referred To Contact CT IMAGING Diagnoses Abnormal weight loss Procedures CT KIDNEY/PELVIS WO/W IVCON CT ABD & PELVIS W/O CONTRST 1+ BODY Patric Rodriguez MD [address] [place] [address] Ct Imaging Referral ID Status Reason Start Date Expiration Date Visits Requested Visits Authorized [id number] Pending Review Auto-Generat ed Referral 09/18/2022 10/18/2023 1 1 Specialty Diagnoses / Procedures Referred By Patricia mejía Referred To Contact CT IMAGING Diagnoses Abnormal weight loss Procedures CT KIDNEY/PELVIS WO/W IVCON CT ABD & PELVIS W/O CONTRST 1+ BODY Patric Rodriguez MD [address] [place] [address] Ct Imaging [id number] Referral ID Status Reason Start Date Expiration Date V isits Requested Visits Authorized [id number] Closed Auto-Generate d Referral 09/18/2022 10/18/2023 1 1 Medications Administered Section Inactive Administered Medications - up to 3 most recent administrations Medication Order MAR Action Action Date Dose Rate Site benzocaine 20 % mucosal spray (HURRICAINE ONE) MUCOUS MEMBRANE (TOPICAL MOUTH & THROAT), ONCE, 1 dose, On Ann 09/19/22 at 1030, Intraprocedure Given 09/19/2022 10:20 AM EST lactated ringers iv infusion 75 mL/hr, INTRAVENOUS, CONTINUOUS, Starting on Ann 09/19/22 at 1000, Until Ann 09/19/22 at 1139, Preprocedure Continued by Anesthesia 09/19/2022 10:15 AM EST 75 mL/hr Additional Source Comments Scheduled Active and Recently Administ ered Medications (unrecognized section and content) Continuous Medication Order 04/03/2021 04/04/2021 04/05/2021 lactated ringers infusion (CANCELED) Intravenous, at 50 mL/hr, CONTINUOUS, Starting on Fri04/04/21 at 0900, Upon admission to sameday - please start iv if patient does not have iv access. Use 500ml NS for patients on dialysis., Pre-op (day of surgery) 0920 (New Bag - Provider: Vargas, RN)1256 (New Bag - Provider: Donna Last, CHRISTIAN)1638 (Stopped - Provider: Marisol Taylor RN) PRN Medication Order 04/03/2021 04/04/2021 04/05/2021 0.9 % sodium chloride infusion 25 mL, Intravenous, at 100 mL/hr, PRN, If patient receiving piggyback infusions without ordered maintenance IV fluids or with frequent/long duration piggyback infusions, Starting on Fri04/04/21 at 1442, Administer at the same rate as the piggyback being infused., Post-op dextrose 5 % solution 100 mL/hr, Intravenous, at 100 mL/hr, PRN, Low blood sugar, Starting on Fri04/04/21 at 1442, Start infusion following administration of dextrose 50% or glucagon. dextrose 50 % IV solution 12.5 g, Intravenous, PRN, Low blood sugar, Blood glucose less than 70 mg/dL and patient NOT ALERT or NPO., Starting on Fri04/04/21 at 1442, If patient does not respond within 5 minutes, repeat dose x1. Start D5W at 100 mL/hour until ordering provider can be reached. Repeat blood glucose in 15 minutes. If blood glucose is less than 70 mg/dL, repeat treatment and recheck blood glucose in 15 minutes x2. If using Glucostabilizer, dose as instructed per system. furosemide (LASIX) tablet 40 mg 40 mg, Oral, PRN, leg edema, Starting on Fri04/04/21 at 1442 glucagon (rDNA) injection 1 mg 1 mg, Intramuscular, PRN, Low blood sugar, Blood glucose less than 70 mg/dL and patient NOT ALERT or NPO and does not have IV access., Starting on Fri04/04/21 at 1442, After administration, attempt intravenous access and start D5W at 100 mL/hr. Repeat blood glucose in 15 minutes x2 and notify provider. glucose (GLUTOSE) 40 % oral gel 15 g 15 g, Oral, PRN, Low blood sugar, Starting on Fri04/04/21 at 1442, If blood glucose less than 50 mg/dL and patient ALERT and TOLERATING PO, give 2 tubes glucose gel. If blood glucose less than 70 mg/dL and patient ALERT and TOLERATING PO, give 1 tube glucose gel. Repeat blood glucose in 15 minutes. If blood glucose is less than 70 mg/dL, repeat treatment and recheck blood glucose in 15 minutes x2 and notify provider. hydrALAZINE (APRESOLINE) injection 10 mg 10 mg, Intravenous, EVERY 6 HOURS PRN, High Blood Pressure, IF SBP GREATER THAN 150, Starting on Ann 04/05/21 at 0955 HYDROmorphone (DILAUDID) injection 0.25 mg(Linked Group 2) 0.25 mg, Intravenous, EVERY 4 HOURS PRN, Pain Moderate (4-6), Starting on Fri04/04/21 at 1418, If oral and IV narcotics ordered, use oral first and only use IV if oral is ineffective or cannot take oral. Do Not give oral and IV within 1 hour of each other unless specifically ordered., PACU & Post-op 1712 (Given - Provider: Marisol Taylor RN - Comment: ok to give by MACHINE [employer]ATH[employer] TRIMMER Paige) HYDROmorphone (DILAUDID) injection 0.5 mg (CANCELED) 0.5 mg, Intravenous, EVERY 5 MIN PRN, Pain Severe (7-10), Starting on Fri04/04/21 at 0942, For 4 doses, Phase I - Secondary therapy to be used after all initial severe pain medication doses have been administered., PACU only 1131 (Given - Provider: Carmen August RN)1146 (Given - Provider: Carmen August RN)1222 (Given - Provider: Carmen August RN) HYDROmorphone (DILAUDID) injection 0.5 mg(Linked Group 2) 0.5 mg, Intravenous, EVERY 4 HOURS PRN, Pain Severe (7-10), Starting on Fri04/04/21 at 1418, If oral and IV narcotics ordered, use oral first and only use IV if oral is ineffective or cannot take oral. Do Not give oral and IV within 1 hour of each other unless specifically ordered., PACU & Post-op 1712 (See Alternative - Provider: Marisol Taylor RN) insulin lispro (HUMALOG) injection vial 0-28 Units (CANCELED) 0-28 Units, Subcutaneous, PRN, based on glucose results., Starting on Fri04/04/21 at 1141, For 3 doses, High Dose Corrective Algorithm Glucose: Dose: If <180 No Insulin 181-240 8 Units 241-300 16 Units 300-350 20 Units 351-400 24 Units Over 400 28 Units, Pre-op (day of surgery) 1141 (Given - Provider: Carmen August RN - Comment: sugar 191) LORazepam (ATIVAN) injection 0.5 mg (CANCELED) 0.5 mg, Intravenous, EVERY 10 MIN PRN, Anxiety, Starting on Fri04/04/21 at 1223, For 2 doses, PACU only 1228 (Given - Provider: Carmen August RN) ondansetron (ZOFRAN) injection 4 mg(Linked Group 3) 4 mg, Intravenous, EVERY 6 HOURS PRN, Nausea, Vomiting, Starting on Fri04/04/21 at 1442, Administer if oral route cannot be used., Post-op oxyCODONE (ROXICODONE) immediate release tablet 10 mg(Linked Group 4) 10 mg, Oral, EVERY 4 HOURS PRN, Pain Severe (7-10), Starting on Fri04/04/21 at 1442, Post-op 1646 (See Alternative - Provider: Marisol Taylor RN) 1024 (See Alternative - Provider: Ciara Garcia RN) oxyCODONE (ROXICODONE) immediate release tablet 5 mg(Linked Group 4) 5 mg, Oral, EVERY 4 HOURS PRN, Pain Moderate (4-6), Starting on Fri04/04/21 at 1442, Post-op 1646 (Given - Provider: Marisol Taylor RN) 1024 (Given - Provider: Ciara Garcia RN) promethazine (PHENERGAN) tablet 12.5 mg(Linked Group 3) 12.5 mg, Oral, EVERY 6 HOURS PRN, Nausea, Vomiting, Starting on Fri04/04/21 at 1442, Post-op sodium chloride flush 0.9 % injection 5-40 mL 5-40 mL, Intravenous, PRN, Line Care, Starting on Fri04/04/21 at 1442, After every IV line use, Post-op Linked Groups Order Group 1: amLODIPine (NORVASC) tablet 5 mgJump to med 5 mg, Oral, DAILY, First dose on Fri04/04/21 at 1515 And lisinopril (PRINIVIL;ZESTRIL) tablet 20 mgJump to med 20 mg, Oral, DAILY, First dose on Fri04/04/21 at 1515 Group 2: HYDROmorphone (DILAUDID) injection 0.25 mgJump to med 0.25 mg, Intravenous, EVERY 4 HOURS PRN, Pain Moderate (4-6), Starting on Fri04/04/21 at 1418
If oral and IV narcotics ordered, use oral first and only use IV if oral is ineffective or cannot take oral. Do Not give oral and IV within 1 hour of each other unless specifically ordered.
PACU & Post-op Or HYDROmorphone (DILAUDID) injection 0.5 mgJump to med 0.5 mg, Intravenous, EVERY 4 HOURS PRN, Pain Severe (7-10), Starting on Fri04/04/21 at 1418
If oral and IV narcotics ordered, use oral first and only use IV if oral is ineffective or cannot take oral. Do Not give oral and IV within 1 hour of each other unless specifically ordered.
PACU & Post-op Group 3: promethazine (PHENERGAN) tablet 12.5 mgJump to med 12.5 mg, Oral, EVERY 6 HOURS PRN, Nausea, Vomiting, Starting on Fri04/04/21 at 1442, Post-op Or ondansetron (ZOFRAN) injection 4 mgJump to med 4 mg, Intravenous, EVERY 6 HOURS PRN, Nausea, Vomiting, Starting on Fri04/04/21 at 1442
Administer if oral route cannot be used.
Post-op Group 4: oxyCODONE (ROXICODONE) immediate release tablet 5 mgJump to med 5 mg, Oral, EVERY 4 HOURS PRN, Pain Moderate (4-6), Starting on Fri04/04/21 at 1442, Post-op Or oxyCODONE (ROXICODONE) immediate release tablet 10 mgJump to med 10 mg, Oral, EVERY 4 HOURS PRN, Pain Severe (7-10), Starting on Fri04/04/21 at 1442, Post-op INFORMATION SOURCE (unrecogn ized section and content) DATE CREATED AUTHOR AUTHOR'S ORGANIZ ATION 09/25/2022 [facility] DATE CREATED AUTHOR AUTHOR'S ORGANIZ ATION 09/27/2022 [facility] Source Comments (unrecognize d section and content) In the event this informatio n is protected by the Federal Confidentiality of Alcohol and Drug Abuse Patient Records regulations: The Federal rules restrict any use of the information to criminally investigate or prosecute any alcohol or drug abuse patient.[facility] the event this information is protected by the Federal Confidentiality of Alcohol and Drug Abuse Patient Records regulations: The Federal rules restrict any use of the information to criminally investigate or prosecute any alcohol or drug abuse patient.[facility] the event this information is protected by the Federal Confidentiality of Alcohol and Drug Abuse Patient Records regulations: The Federal rules restrict any use of the information to criminally investigate or prosecute any alcohol or drug abuse patient.[facility] the event this information is protected by the Federal Confidentiality of Alcohol and Drug Abuse Patient Records regulations: The Federal rules restrict any use of the information to criminally investigate or prosecute any alcohol or drug abuse patient.[facility] the event this information is protected by the Federal Confidentiality of Alcohol and Drug Abuse Patient Records regulations: The Federal rules restrict any use of the information to criminally investigate or prosecute any alcohol or drug abuse patient.[facility] the event this information is protected by the Federal Confidentiality of Alcohol and Drug Abuse Patient Records regulations: The Federal rules restrict any use of the information to criminally investigate or prosecute any alcohol or drug abuse patient.[facility] the event this information is protected by the Federal Confidentiality of Alcohol and Drug Abuse Patient Records regulations: The Federal rules restrict any use of the information to criminally investigate or prosecute any alcohol or drug abuse patient.[facility] the event this information is protected by the Federal Confidentiality of Alcohol and Drug Abuse Patient Records regulations: The Federal rules restrict any use of the information to criminally investigate or prosecute any alcohol or drug abuse patient.[facility] the event this information is protected by the Federal Confidentiality of Alcohol and Drug Abuse Patient Records regulations: The Federal rules restrict any use of the information to criminally investigate or prosecute any alcohol or drug abuse patient.[facility] the event this information is protected by the Federal Confidentiality of Alcohol and Drug Abuse Patient Records regulations: The Federal rules restrict any use of the information to criminally investigate or prosecute any alcohol or drug abuse patient.[facility] the event this information is protected by the Federal Confidentiality of Alcohol and Drug Abuse Patient Records regulations: The Federal rules restrict any use of the information to criminally investigate or prosecute any alcohol or drug abuse patient.[facility] the event this information is protected by the Federal Confidentiality of Alcohol and Drug Abuse Patient Records regulations: The Federal rules restrict any use of the information to criminally investigate or prosecute any alcohol or drug abuse patient.[facility] the event this information is protected by the Federal Confidentiality of Alcohol and Drug Abuse Patient Records regulations: The Federal rules restrict any use of the information to criminally investigate or prosecute any alcohol or drug abuse patient.[facility] Hospital[facility] the event this information is protected by the Federal Confidentiality of Alcohol and Drug Abuse Patient Records regulations: The Federal rules restrict any use of the information to criminally investigate or prosecute any alcohol or drug abuse patient.[facility] Reason for Visit (unrecogniz ed section and content) Reason Comments Consult Vomiting, diarrhea, constipation for months Specialty Diagnoses / Procedures Referred By Contac t Referred To Contact CT IMAGING Diagnoses Abnormal weight loss Abdominal pain, unspecified abdominal location Procedures CT ABD/PEL WO IVCON CT ABD & PELVIS W/O CONTRAST Patric Torres MD [address] [place] [address] Ct Imaging Referral ID Status Reason Start Date Expiration Date V isits Requested Visits Authorized [id number] Closed Auto-Generate d Referral 08/29/2022 09/28/2023 1 1 Reason Comments Patient Question Colonoscopy prep Reason Comments Results Reason Comments 09/19/2022 COLON/EGD LODI Reason Comments Patient Update N/V Reason Comments Radiology CT Specialty Diagnoses / Procedures Referred By Contac t Referred To Contact CT IMAGING Diagnoses Abnormal weight loss Procedures CT KIDNEY/PELVIS WO/W IVCON CT ABD & PELVIS W/O CONTRST 1+ BODY REGNS Patric Torres MD [address] [place] [address] [place] [address] Referral ID Status Reason Start Date Expiration Date V isits Requested Visits Authorized [id number] Closed Auto-Generate d Referral 09/18/2022 10/18/2023 1 1 Specialty Diagnoses / Procedures Referred By Contac t Referred To Contact CT IMAGING Diagnoses Abnormal weight loss Abdominal pain, unspecified abdominal location Procedures CT ABD/PEL WO IVCON CT ABD & PELVIS W/O CONTRAST Patric Torres MD [address] [place] [address] [place] [address] Reason Comments Radiology US Specialty Diagnoses / Procedures Referred By Contac t Referred To Contact US IMAGING Diagnoses Abnormal weight loss Abdominal pain, unspecified abdominal location Procedures US KIDNEY/BLADDER US RETROPERITONEAL REAL TIME W/IMAGE COMPLETE Patric Torres MD [address] [place] [address] [place] [address] Referral ID Status Reason Start Date Expiration Date V isits Requested Visits Authorized [id number] Closed Auto-Generate d Referral 09/11/2022 10/11/2023 1 1 Care Teams (unrecognized sec tion and content) Tariff Counsel Relationship Specialty Start Date End Date Jass Lloyd Edmartine [address] [place] [address] PCP - General Family Medicine 03/21/22 Tariff Counsel Relationship Specialty Start Date End Date Jass Lloyd Edmartine [address] [place] [address] PCP - General Family Medicine 03/21/22 Tariff Counsel Relationship Specialty Start Date End Date Jass Lloyd [address] [place] [address] PCP - General Family Medicine 03/21/22 Tariff Counsel Relationship Specialty Start Date End Date Jass Lloyd [address] [place] [address] PCP - General Family Medicine 03/21/22 Tariff Counsel Relationship Specialty Start Date End Date Jass Lloyd [address] [place] [address] PCP - General Family Medicine 03/21/22 Tariff Counsel Relationship Specialty Start Date End Date Jass Lloyd [address] [place] [address] PCP - General Family Medicine 03/21/22 Tariff Counsel Relationship Specialty Start Date End Date Jass Lloyd [address] [place] [address] PCP - General Family Medicine 03/21/22 Tariff Counsel Relationship Specialty Start Date End Date Jass Lloyd [address] [place] [address] PCP - General Family Medicine 03/21/22 Tariff Counsel Relationship Specialty Start Date End Date Jass Lloyd [address] [place] [address] PCP - General Family Medicine 03/21/22 [place] Counsel Relationship Specialty Start Date End Date Jass Lloyd [address] [place] [address] PCP - General Family Medicine 03/21/22 [place] Counsel Relationship Specialty Start Date End Date Jass Lloyd MD [address] [place] [address] PCP - General Family Medicine 03/21/22 [place] Counsel Relationship Specialty Start Date End Date Jass Lloyd MD [address] [place] [address] PCP - General Family Medicine 03/21/22 [place] Counsel Relationship Specialty Start Date End Date Jass Lloyd MD [address] [place] [address] PCP - General Family Medicine 03/21/22 FOR RECORDS PERTAINING TO PATIENTS WHO ARE OR HAVE BEEN ENROLLED IN A CHEMICAL DEPENDENCY/SUBSTANCEABUSE PROGRAM, SOME INFORMATION MAY BE OMITTED. This clinical summary was aggregated from multiple sources. Caution should be exercised in using it in the provision of clinical care. This summary normalizes information from multiple sources, and as a consequence, information in this document may materially change the coding, format and clinical context of patient data. In addition, data may be omitted in some cases. CLINICAL DECISIONS SHOULD BE BASED ON THE PRIMARY CLINICAL RECORDS. [facility]. provides no warranty or guarantee of the accuracy or completeness of information in this document.
== END | disposition home or self-care (01) ==
PROVIDERS: PCP Family Medicine; Referring Provider Urology; Visit Provider Urology
DX: C64.2 Malignant neoplasm of left kidney, except renal pelvis (principal); F11.20 Opioid dependence, uncomplicated; N18.4 Chronic kidney disease, stage 4 (severe)
CPT/HCPCS: 36415; 80053; 80307; 82570; 84156; 85027

== ENCOUNTER → 2024-02-13 | Outpatient (CLI) | payer MEDICARE, OTHER, SELFPAY ==
[2024-02-13 17:28] LABS: Absolute Lymphocyte Count 1.09 X10^3/uL (0.83-4.51); Absolute Neutrophil Count 4.6 X10^3/uL (2.0-7.7); Basophil# 0.13 X10^3/uL; Basophil% 1.9 % (0-1); Eosinophil# 0.49 X10^3/uL; Eosinophils% 7.1 % (0-5); Hematocrit 37.3 % (37-47); Hemoglobin 11.8 g/dL (12.0-15.0); Lymphocyte # 1.09 X10^3/ul (0.83-4.51); Lymphocyte % 15.8 % (19-41); Mean Corp Hgb Conc 31.6 g/dL (32-36); Mean Corpuscular Hgb 29.4 pg (27.0-32.0); Mean Platelet Vol. 11.7 fl (6.2-12.0); Monocyte# 0.57 X10^3/uL; Monocyte% 8.2 % (0-10); NRBC Flagged by Analyzer 0 % (0-5); Neutrophil # 4.61 X10^3/uL (2.7-7.7); Neutrophil % 66.6 % (47-70); Platelet Count 182 K/mm3 (150-450); RBC Distribution Width CV 13.6 % (11.6-14.6); RBC Distribution Width SD 46.5 fl (35.1-43.9); Red Blood Count 4.01 M/mm3 (4.2-5.4); White Blood Count 6.9 K/mm3 (4.4-11.0)
[2024-02-13 17:48] LABS: Hemoglobin A1c 5.7 % (3.8-5.6); Vitamin D,25 Hydroxy 55.7 ng/mL
[2024-02-13 17:56] LABS: ALB/GLOB Ratio 0.9 RATIO (0.9-2.4); AST(SGOT) 20 U/L (15-37); Alanine Aminotransfer ALT/SGPT 25 U/L (13-56); Alkaline Phosphatase 63 U/L (45-117); Anion Gap 4 (5-15); BUN 27 mg/dL (7-18); BUN/Creat Ratio 13.2 RATIO (10-20); Calcium,Total 8.4 mg/dL (8.5-10.1); Chloride 109 mmol/L (98-107); Creatinine, Serum 2.05 mg/dL (0.55-1.02); EST Glomerular Filtration Rate 25 mL/min (>60); Est Glom Filt Rate - Afr Amer 30 mL/min (>60); Globulin 3.3 g/dL (2.2-4.2); Glucose 139 mg/dL (74-106); Phosphorus 2.8 mg/dL (2.5-4.9); Potassium 4.6 mmol/L (3.5-5.1); Protein, Total 6.3 g/dL (6.4-8.2); Sodium Level 139 mmol/L (136-145); T4 Free Direct 1.06 ng/dL (0.76-1.46); Thyroid Stim Hormone (TSH) 1.96 uIU/mL (0.358-3.74)
== END | disposition home or self-care (01) ==
LOC: MTLAB 16:22
PROVIDERS: PCP Family Medicine; Referring Provider Family Medicine; Visit Provider Family Medicine
DX: E11.22 Type 2 diabetes mellitus with diabetic chronic kidney disease (principal); N18.4 Chronic kidney disease, stage 4 (severe); E03.9 Hypothyroidism, unspecified
CPT/HCPCS: 80053; 82306; 83036; 83970; 84100; 84439; 84443; 85025

== ENCOUNTER → 2024-02-19 | Outpatient (CLI) | payer MEDICARE, OTHER, SELFPAY ==
[2024-02-19 17:13] LABS: Amphetamine Urine VISTA NEGATIVE (<1000 ng/mL); Barbiturate Urine VISTA NEGATIVE (< 200 ng/mL); Benzodiazepine Urine VISTA NEGATIVE (< 200 ng/mL); Cocaine Urine VISTA NEGATIVE (< 300 ng/mL); Ecstacy Urine VISTA NEGATIVE (< 500 ng/mL); Methadone Urine VISTA NEGATIVE (< 300 ng/mL); PCP Urine VISTA NEGATIVE (< 25 ng/mL); THC Urine VISTA NEGATIVE (< 50 ng/mL); Vista UDS pH Range 6
[2024-02-19 18:46] LABS: Anion Gap 2 (5-15); BUN 30 mg/dL (7-18); BUN/Creat Ratio 14.9 RATIO (10-20); Calcium,Total 8.7 mg/dL (8.5-10.1); Chloride 108 mmol/L (98-107); Creatinine, Serum 2.01 mg/dL (0.55-1.02); EST Glomerular Filtration Rate 26 mL/min (>60); Est Glom Filt Rate - Afr Amer 31 mL/min (>60); Glucose 135 mg/dL (74-106); Potassium 4.4 mmol/L (3.5-5.1); Sodium Level 137 mmol/L (136-145)
[2024-02-19 18:50] LABS: Protein, Urine (Random) 61.4 mg/dL (<11.9); Protein:Creat Ratio 1607 mg/g CRE (0-200)
== END | disposition home or self-care (01) ==
PROVIDERS: PCP Family Medicine; Referring Provider Anesthesiology Pain Medicine; Visit Provider Anesthesiology Pain Medicine
DX: F11.20 Opioid dependence, uncomplicated (principal); N18.4 Chronic kidney disease, stage 4 (severe)
CPT/HCPCS: 36415; 80048; 80307; 82570; 84156

== ENCOUNTER → 2024-04-28 | Outpatient (CLI) | payer MEDICARE, OTHER, SELFPAY ==
[2024-04-28 18:09] LABS: Absolute Lymphocyte Count 1.04 X10^3/uL (0.83-4.51); Absolute Neutrophil Count 3.9 X10^3/uL (2.0-7.7); Basophil# 0.09 X10^3/uL; Basophil% 1.5 % (0-1); Eosinophil# 0.53 X10^3/uL; Eosinophils% 8.8 % (0-5); Hematocrit 37.9 % (37-47); Hemoglobin 12.2 g/dL (12.0-15.0); Lymphocyte # 1.04 X10^3/ul (0.83-4.51); Lymphocyte % 17.3 % (19-41); Mean Corp Hgb Conc 32.2 g/dL (32-36); Mean Corpuscular Hgb 30.1 pg (27.0-32.0); Mean Corpuscular Volume 93.6 fL (81-99); Mean Platelet Vol. 11.4 fl (6.2-12.0); Monocyte# 0.43 X10^3/uL; Monocyte% 7.2 % (0-10); NRBC Flagged by Analyzer 0 % (0-5); Neutrophil % 64.9 % (47-70); Platelet Count 187 K/mm3 (150-450); RBC Distribution Width CV 12.2 % (11.6-14.6); RBC Distribution Width SD 42.3 fl (35.1-43.9); Red Blood Count 4.05 M/mm3 (4.2-5.4)
[2024-04-28 18:25] LABS: PTHIN 88.9 pg/mL (18.4-80.1)
[2024-04-28 18:28] LABS: Vitamin D,25 Hydroxy 45.9 ng/mL
[2024-04-28 18:30] LABS: Hemoglobin A1c 5.7 % (3.8-5.6)
[2024-04-28 18:37] LABS: ALB/GLOB Ratio 1.1 RATIO (0.9-2.4); AST(SGOT) 17 U/L (15-37); Alanine Aminotransfer ALT/SGPT 18 U/L (13-56); Albumin, Serum 3.4 g/dL (3.2-5.0); Alkaline Phosphatase 59 U/L (45-117); Anion Gap 5 (5-15); BUN 28 mg/dL (7-18); BUN/Creat Ratio 12.1 RATIO (10-20); Chloride 108 mmol/L (98-107); Creatinine, Serum 2.32 mg/dL (0.55-1.02); EST Glomerular Filtration Rate 22 mL/min (>60); Est Glom Filt Rate - Afr Amer 26 mL/min (>60); Globulin 3.2 g/dL (2.2-4.2); Glucose 94 mg/dL (74-106); Phosphorus 3.4 mg/dL (2.5-4.9); Protein, Total 6.6 g/dL (6.4-8.2); Sodium Level 137 mmol/L (136-145)
== END | disposition home or self-care (01) ==
LOC: MFPLAB 15:26
PROVIDERS: PCP Family Medicine; Visit Provider Family Medicine
DX: E11.8 Type 2 diabetes mellitus with unspecified complications (principal); N18.4 Chronic kidney disease, stage 4 (severe); E11.22 Type 2 diabetes mellitus with diabetic chronic kidney disease
CPT/HCPCS: 36415; 80053; 82306; 83036; 83970; 84100; 85025

== ENCOUNTER → 2024-05-25 | Outpatient (CLI) | payer MEDICARE, OTHER, SELFPAY ==
--- NOTE | 2024-05-25 11:28 | NM_ITS ---
CLINICAL: 78-year-old female with history of clinical gastroparesis. SEMI-SOLID PHASE 99m Tc SULFUR COLLOID GASTRIC EMPTYING STUDY COMPARISON: Previous gastric emptying imaging examination report dated 02/07/2022 FINDINGS: The patient was administered 1.0 mCi of 99m Tc sulfur colloid mixed with oatmeal and consumed per os. Image acquisitions in the anterior-posterior projections were obtained for 60 minutes. There is prompt visualization of the stomach. There is no gastroesophageal reflux identified. The T ? raw data emptying was calculated to be 22.36 minutes, (Normal: 12-56 minutes) compared to 11.1 minutes defined on the prior examination dated 02/07/2022. NM/Gastric Emptying Study IMPRESSION: 1. NORMAL 99m Tc sulfur colloid semi-solid phase (oatmeal) gastric emptying imaging examination. A. There is normal and preserved semi-solid phase gastric emptying compared to normal controls. (Beverley et al, J Nucl Med Tech 38: 186, 2010). B. Overall compared to the previous semisolid phase gastric emptying examination dated 02/07/2022, there is current normal semisolid phase emptying as defined above. Electronically Signed: Patric Bautista DO at 12:02 EDT ,
== END | disposition home or self-care (01) ==
LOC: NM 11:25
PROVIDERS: PCP Family Medicine; Referring Provider Internal Medicine Gastroenterology; Visit Provider Internal Medicine Gastroenterology
DX: K86.81 Exocrine pancreatic insufficiency (principal)
CPT/HCPCS: 78264; A9541

== ENCOUNTER → 2024-06-01 | Outpatient (CLI) | payer MEDICARE, OTHER, SELFPAY ==
--- NOTE | 2024-06-01 13:06 | ECHOD_ITS ---
Reason For Study: BRADYCARDIA Procedure This was a 2D Doppler, Color Flow transthoracic echocardiogram. The study was technically difficult. Exam performed in department. Left Ventricle Normal LV size. Mild concentric left ventricular hypertrophy. Left ventricular systolic function is normal. The left ventricular ejection fraction is 60 %. Stage 1 diastolic dysfunction. No regional wall motion abnormalities noted. Right Ventricle Normal RV size. Normal systolic function. Atria Normal left atrium. Normal right atrium. Mitral Valve There is mild to moderate mitral annular calcification. Tricuspid Valve Normal tricuspid valve. Aortic Valve Trisinus/trileaflet aortic valve. Pulmonic Valve Normal pulmonic valve. Great Vessels Normal aortic root. The pulmonary artery is normal size. Normal inferior vena cava. Pericardium/Pleural No pericardial effusion. MMode/2D Measurements & Calculations LVIDd: 5.3 cm IVSd: 1.4 cm LVOT diam: 2.0 cm LVIDs: 2.8 cm LVPWd: 1.3 cm LVOT area: 3.1 cm2 RVDd: 3.7 cm FS: 47.3 % Ao root diam: 3.1 cm LAV(MOD-bp): 42.1 ml LVAd ap4: 20.5 cm2 LAV(MOD-bp) Indexed: 20.7 ml/m2 LVLd ap4: 6.8 cm LAV(MOD-sp2): 47.8 ml EDV(MOD-sp4): 52.9 ml LAV(MOD-sp4): 36.1 ml EDV(sp4-el): 52.6 ml LVAs ap4: 9.6 cm2 LVLs ap4: 6.2 cm ESV(MOD-sp4): 13.6 ml ESV(sp4-el): 12.6 ml EF(MOD-sp4): 74.2 % EF(sp4-el): 75.9 % LVAd ap2: 24.2 cm2 SV(MOD-sp4): 39.3 ml SV(MOD-sp2): 45.7 ml LVLd ap2: 7.2 cm EDV(MOD-sp2): 67.1 ml EDV(sp2-el): 69.0 ml LVAs ap2: 12.4 cm2 LVLs ap2: 6.3 cm ESV(MOD-sp2): 21.3 ml ESV(sp2-el): 20.7 ml EF(MOD-sp2): 68.2 % SV(sp4-el): 39.9 ml LA dimension(2D): 4.9 cm LA A4 area: 16.4 cm2 RA A4 area: 11.2 cm2 TAPSE: 2.1 cm Time Measurements MV dec time: 0.22 sec Doppler Measurements & Calculations MV E max dionicio: 72.3 cm/sec Lat Peak E' Dionicio: 10.3 cm/sec Med Peak E' Dionicio: 7.7 cm/sec MV A max dionicio: 96.8 cm/sec E/E' lat: 7.0 E/E' med: 9.4 MV E/A: 0.75 Ao V2 max: 156.7 cm/sec LV V1 max: 116.1 cm/sec MV dec slope: 332.3 cm/sec2 Ao max P.8 mmHg LV V1 max P.4 mmHg Ao V2 mean: 113.0 cm/sec LV V1 mean P.7 mmHg Ao mean P.6 mmHg LV V1 mean: 79.1 cm/sec Ao V2 VTI: 38.4 cm LV V1 VTI: 25.5 cm AV (velocity ratio): 0.66 HAYLEE(I,D): 2.1 cm2 HAYLEE(V,D): 2.3 cm2 SV(LVOT): 79.5 ml PA V2 max: 88.2 cm/sec ECHO/Echo Complete Interpretation Summary Normal LV size. Left ventricular systolic function is normal. The left ventricular ejection fraction is 60 %. Mild concentric left ventricular hypertrophy. Stage 1 diastolic dysfunction. Ordering Physician: Alexis Hays Referring Physician: Jass Koehler Performed By: Tessa Hurley RDCS and Student
== END | disposition home or self-care (01) ==
LOC: CVS 13:00
PROVIDERS: PCP Family Medicine; Referring Provider Internal Medicine Cardiovascular Disease; Visit Provider Internal Medicine Cardiovascular Disease
DX: R94.31 Abnormal electrocardiogram [ECG] [EKG] (principal); R00.1 Bradycardia, unspecified
CPT/HCPCS: 93306

== ENCOUNTER → 2024-06-04 | Outpatient (CLI) | payer MEDICARE, OTHER, SELFPAY ==
[2024-06-04 18:00] LABS: BUN 35 mg/dL (7-18); BUN/Creat Ratio 15.4 RATIO (10-20); Calcium,Total 8.8 mg/dL (8.5-10.1); Chloride 111 mmol/L (98-107); Creatinine, Serum 2.28 mg/dL (0.55-1.02); EST Glomerular Filtration Rate 22 mL/min (>60); Est Glom Filt Rate - Afr Amer 27 mL/min (>60); Glucose 120 mg/dL (74-106); Phosphorus 3.6 mg/dL (2.5-4.9); Potassium 5.2 mmol/L (3.5-5.1); Sodium Level 139 mmol/L (136-145)
[2024-06-04 18:02] LABS: Protein, Urine (Random) 47.6 mg/dL (<11.9); Protein:Creat Ratio 517 mg/g CRE (0-200)
[2024-06-08 07:08] LABS: Cytoplasmic Ab (C-ANCA) <1:20 titer (Neg:<1:20); Perinuclear Ab (P-ANCA) <1:20 titer (Neg:<1:20)
== END | disposition home or self-care (01) ==
LOC: MFPLAB 15:53
PROVIDERS: PCP Family Medicine; Visit Provider Internal Medicine Nephrology
DX: N18.4 Chronic kidney disease, stage 4 (severe) (principal)
CPT/HCPCS: 36415; 80069; 82570; 84156; 86256

== ENCOUNTER → 2024-06-29 | Outpatient (CLI) | payer MEDICARE, OTHER, SELFPAY ==
[2024-06-29 17:29] LABS: Absolute Lymphocyte Count 1.06 X10^3/uL (0.83-4.51); Absolute Neutrophil Count 4.5 X10^3/uL (2.0-7.7); Basophil% 1.5 % (0-1); Eosinophil# 0.49 X10^3/uL; Eosinophils% 7.3 % (0-5); Hematocrit 34.4 % (37-47); Lymphocyte # 1.06 X10^3/ul (0.83-4.51); Lymphocyte % 15.9 % (19-41); Mean Corpuscular Hgb 30.5 pg (27.0-32.0); Mean Corpuscular Volume 95.3 fL (81-99); Monocyte# 0.48 X10^3/uL; Monocyte% 7.2 % (0-10); NRBC Flagged by Analyzer 0 % (0-5); Neutrophil # 4.53 X10^3/uL (2.7-7.7); Neutrophil % 67.8 % (47-70); Platelet Count 216 K/mm3 (150-450); RBC Distribution Width CV 12.8 % (11.6-14.6); RBC Distribution Width SD 44.2 fl (35.1-43.9); Red Blood Count 3.61 M/mm3 (4.2-5.4); White Blood Count 6.7 K/mm3 (4.4-11.0)
[2024-06-29 17:49] LABS: Protein:Creat Ratio 689 mg/g CRE (0-200)
[2024-06-29 18:16] LABS: PTHIN 96.6 pg/mL (18.4-80.1)
[2024-06-29 18:23] LABS: ALB/GLOB Ratio 1.1 RATIO (0.9-2.4); AST(SGOT) 19 U/L (15-37); Alanine Aminotransfer ALT/SGPT 18 U/L (13-56); Albumin, Serum 3.2 g/dL (3.2-5.0); Alkaline Phosphatase 68 U/L (45-117); Anion Gap 5 (5-15); BUN 32 mg/dL (7-18); BUN/Creat Ratio 16.5 RATIO (10-20); Calcium,Total 9.2 mg/dL (8.5-10.1); Chloride 109 mmol/L (98-107); Cholesterol 125 mg/dL (200); Creatinine, Serum 1.94 mg/dL (0.55-1.02); EST Glomerular Filtration Rate 27 mL/min (>60); Est Glom Filt Rate - Afr Amer 32 mL/min (>60); Glucose 168 mg/dL (74-106); High Density Lipoprotein 59 mg/dL; Phosphorus 3.7 mg/dL (2.5-4.9); Protein, Total 6.2 g/dL (6.4-8.2); Sodium Level 140 mmol/L (136-145); T4 Free Direct 1.23 ng/dL (0.76-1.46); Thyroid Stim Hormone (TSH) 0.486 uIU/mL (0.358-3.740); Triglycerides 72 mg/dL; Very Low Density Lipoprotein 14 mg/dL (5-40)
[2024-06-29 18:25] LABS: Vitamin B12 510 pg/mL (211-911); Vitamin D,25 Hydroxy 60.9 ng/mL
[2024-06-29 20:00] LABS: Hemoglobin A1c 5.8 % (3.8-5.6)
== END | disposition home or self-care (01) ==
LOC: MFPLAB 14:19
PROVIDERS: PCP Family Medicine; Visit Provider Family Medicine
DX: E11.22 Type 2 diabetes mellitus with diabetic chronic kidney disease (principal); N18.4 Chronic kidney disease, stage 4 (severe); E11.69 Type 2 diabetes mellitus with other specified complication; E11.59 Type 2 diabetes mellitus with other circulatory complications; R41.3 Other amnesia; E03.9 Hypothyroidism, unspecified
CPT/HCPCS: 80053; 80061; 82306; 82570; 82607; 83036; 83970; 84100; 84156; 84439; 84443; 85025

== ENCOUNTER → 2024-07-29 | Outpatient (CLI) | payer MEDICARE, OTHER, SELFPAY | END | disposition home or self-care (01) | LOC: LABSPEC 15:44 | PROVIDERS: PCP Family Medicine; Referring Provider Urology; Visit Provider Urology | DX: N30.01 Acute cystitis with hematuria (principal) | CPT/HCPCS: 87077; 87086; 87088; 87186 ==

== ENCOUNTER → 2024-09-16 | Outpatient (CLI) | payer MEDICARE, OTHER, SELFPAY ==
[2024-09-16 16:13] LABS: Absolute Neutrophil Count 3.9 X10^3/uL (2.0-7.7); Basophil# 0.13 X10^3/uL; Eosinophil# 0.36 X10^3/uL; Eosinophils% 5.6 % (0-5); Hemoglobin 11.2 g/dL (12.0-15.0); Lymphocyte % 20.3 % (19-41); Mean Corpuscular Hgb 28.5 pg (27.0-32.0); Mean Corpuscular Volume 89.1 fL (81-99); Mean Platelet Vol. 10.9 fl (6.2-12.0); Monocyte# 0.66 X10^3/uL; Monocyte% 10.3 % (0-10); NRBC Flagged by Analyzer 0 % (0-5); Neutrophil # 3.93 X10^3/uL (2.7-7.7); Neutrophil % 61.3 % (47-70); Platelet Count 233 K/mm3 (150-450); RBC Distribution Width SD 39.1 fl (35.1-43.9); Red Blood Count 3.93 M/mm3 (4.2-5.4); White Blood Count 6.4 K/mm3 (4.4-11.0)
[2024-09-16 16:27] LABS: Anion Gap 4 (5-15); BUN 26 mg/dL (7-18); BUN/Creat Ratio 14.4 RATIO (10-20); Calcium,Total 9.4 mg/dL (8.5-10.1); Chloride 107 mmol/L (98-107); EST Glomerular Filtration Rate 29 mL/min (>60); Est Glom Filt Rate - Afr Amer 35 mL/min (>60); Glucose 154 mg/dL (74-106); Potassium 4.3 mmol/L (3.5-5.1); Sodium Level 137 mmol/L (136-145)
[2024-09-16 17:55] LABS: BNP,B-Type NATRIURETIC PEPTIDE 120.8 pg/mL (0-100)
== END | disposition home or self-care (01) ==
LOC: LAB 15:24
PROVIDERS: PCP Family Medicine; Referring Provider Nurse Practitioner Gerontology; Visit Provider Nurse Practitioner Gerontology
DX: R06.09 Other forms of dyspnea (principal)
CPT/HCPCS: 36415; 80048; 83880; 85025

== ENCOUNTER → 2024-09-27 | Outpatient (CLI) | payer MEDICARE, OTHER, SELFPAY ==
[2024-09-27 15:42] LABS: LDH 135 U/L (84-246)
[2024-09-30 17:07] LABS: Albumin 3.4 g/dL (2.9-4.4); Alpha-1-Globulins 0.2 g/dL (0.0-0.4); Alpha-2-Globulins 0.9 g/dL (0.4-1.0); Gamma Globulin 0.8 g/dL (0.4-1.8); Gastrin, Serum 590 pg/mL (0-115); Immunoglobulin A 190 mg/dL (64-422); Immunoglobulin G 824 mg/dL (586-1602); Immunoglobulin M 88 mg/dL (26-217); PROEL- TOTAL PROTEIN 6.1 g/dL (6.0-8.5)
== END | disposition home or self-care (01) ==
LOC: MFPLAB 13:38
PROVIDERS: PCP Family Medicine; Visit Provider Nurse Practitioner Acute Care
DX: K21.9 Gastro-esophageal reflux disease without esophagitis (principal); K86.89 Other specified diseases of pancreas; R11.2 Nausea with vomiting, unspecified; K59.00 Constipation, unspecified
CPT/HCPCS: 36415; 82784; 82941; 83615; 84165; 86334

== ENCOUNTER → 2024-09-29 | Outpatient (CLI) | payer MEDICARE, OTHER, SELFPAY ==
--- NOTE | 2024-09-29 18:18 | STRESSREP ---
Stress Test Report Pharmacologic myocardial perfusion stress test. 78-year-old lady with a history of chest pain Resting EKG demonstrates sinus rhythm with a rate of 60 bpm. Resting blood pressure is 148/82 mmHg. 0.4 mg of regadenoson was infused per usual protocol followed by rapid intravenous saline flush injection. Continuous EKG monitoring was performed. The maximum heart rate was 107 bpm which was 74% of max impacted heart rate the maximum workload was 1 metabolic equivalent. At rest there were no ST or T wave changes noted to suggest ischemia and at peak infusion nonspecific ST changes were noted which did not meet the criteria for ischemia. No clinical angina is noted. The final blood pressure was 142/78 mmHg. Myocardial perfusion protocol. 14.4 mCi of technetium 99m sestamibi was injected at rest. 0.4 mg of regadenoson was infused per usual protocol. At peak infusion 44.8 mCi of technetium 99m sestamibi was injected stress images were obtained stress and rest images were reconstructed and compared in the short axis vertical long and horizontal long axis. Gated images were also obtained. Perfusion SPECT analysis: Review of the stress images demonstrate normal uptake of tracer noted in all areas of the myocardium. The resting images similar demonstrated normal uptake of tracer noted in all areas of the myocardium. No areas of reversibility are noted to suggest ischemia and no previous infarct is noted. Gated SPECT analysis: The gated ejection fraction is 74%. Conclusion: Normal pharmacologic myocardial perfusion stress test. Preserved ejection fraction.
== END | disposition home or self-care (01) ==
LOC: CVS 06:54
PROVIDERS: PCP Family Medicine; Referring Provider Nurse Practitioner Gerontology; Visit Provider Nurse Practitioner Gerontology
DX: R06.09 Other forms of dyspnea (principal)
CPT/HCPCS: 78452; 93017; A9500; A4216; J2785

== ENCOUNTER → 2024-10-05 | Outpatient (CLI) | payer MEDICARE, OTHER, SELFPAY ==
[2024-10-05 17:47] LABS: Absolute Lymphocyte Count 1.08 X10^3/uL (0.83-4.51); Absolute Neutrophil Count 4.4 X10^3/uL (2.0-7.7); Basophil# 0.08 X10^3/uL; Basophil% 1.3 % (0-1); Eosinophil# 0.22 X10^3/uL; Eosinophils% 3.5 % (0-5); Hematocrit 35.5 % (37-47); Hemoglobin 11.4 g/dL (12.0-15.0); Lymphocyte # 1.08 X10^3/ul (0.83-4.51); Lymphocyte % 17.1 % (19-41); Mean Corp Hgb Conc 32.1 g/dL (32-36); Mean Corpuscular Hgb 28.4 pg (27.0-32.0); Mean Corpuscular Volume 88.5 fL (81-99); Mean Platelet Vol. 11.1 fl (6.2-12.0); Monocyte# 0.54 X10^3/uL; Monocyte% 8.6 % (0-10); NRBC Flagged by Analyzer 0 % (0-5); Neutrophil # 4.37 X10^3/uL (2.7-7.7); Neutrophil % 69.2 % (47-70); Platelet Count 207 K/mm3 (150-450); RBC Distribution Width CV 12.5 % (11.6-14.6); RBC Distribution Width SD 40.4 fl (35.1-43.9); Red Blood Count 4.01 M/mm3 (4.2-5.4); White Blood Count 6.3 K/mm3 (4.4-11.0)
[2024-10-05 18:36] LABS: AST(SGOT) 15 U/L (15-37); Alanine Aminotransfer ALT/SGPT 19 U/L (13-56); Albumin, Serum 3.4 g/dL (3.2-5.0); Alkaline Phosphatase 64 U/L (45-117); Anion Gap 7 (5-15); BUN 28 mg/dL (7-18); BUN/Creat Ratio 13.8 RATIO (10-20); Calcium,Total 9.4 mg/dL (8.5-10.1); Chloride 106 mmol/L (98-107); Creatinine, Serum 2.03 mg/dL (0.55-1.02); EST Glomerular Filtration Rate 25 mL/min (>60); Est Glom Filt Rate - Afr Amer 31 mL/min (>60); Globulin 3.3 g/dL (2.2-4.2); Glucose 145 mg/dL (74-106); Potassium 4.7 mmol/L (3.5-5.1); Protein, Total 6.7 g/dL (6.4-8.2); Sodium Level 136 mmol/L (136-145)
== END | disposition home or self-care (01) ==
LOC: MFPLAB 14:56
PROVIDERS: PCP Family Medicine; Visit Provider Family Medicine
DX: E11.59 Type 2 diabetes mellitus with other circulatory complications (principal)
CPT/HCPCS: 36415; 80053; 85025

== ENCOUNTER → 2024-10-19 | Outpatient (CLI) | payer MEDICARE, OTHER, SELFPAY ==
--- NOTE | 2024-10-19 09:00 | RAD_ITS ---
EXAMINATION: Air contrast UPPER GI SERIES INDICATION: Female, 78 years nausea and vomiting. Weight loss. FLUOROSCOPY TIME (if supplied): (1:31) minutes/seconds 34 mGy. TECHNIQUE: Radiographic and fluoroscopic images of the distal esophagus, stomach, and proximal small intestine were obtained following the oral ingestion of barium. COMPARISON: None. FINDINGS: There is no evidence for organomegaly, abnormal calcifications, or abnormal bowel gas pattern. The psoas margins and flank stripes are normal. Degenerative changes of the thoracic spine. The mucosa of the esophagus, stomach and duodenum is normal in appearance without evidence for stricture, ulceration, mass or diverticulum. Small hiatal hernia with gastroesophageal reflux. RAD/Upper GI Dual Contrast IMPRESSION: Small hiatal hernia with gastroesophageal reflux. Electronically Signed: Kosta England MD at 15:01 EST ,
== END | disposition home or self-care (01) ==
PROVIDERS: PCP Family Medicine; Referring Provider Nurse Practitioner Acute Care; Visit Provider Nurse Practitioner Acute Care
DX: K21.9 Gastro-esophageal reflux disease without esophagitis (principal); K86.89 Other specified diseases of pancreas; R11.2 Nausea with vomiting, unspecified; K59.00 Constipation, unspecified
CPT/HCPCS: 74240; 74246

== ENCOUNTER → 2024-10-25 | Outpatient (CLI) | payer MEDICARE, OTHER, SELFPAY ==
[2024-10-27 13:07] LABS: Adrenocorticotropic Hormone 12.5 pg/mL (7.2-63.3)
== END | disposition home or self-care (01) ==
LOC: LAB 14:32
PROVIDERS: PCP Family Medicine; Referring Provider Nurse Practitioner Acute Care; Visit Provider Nurse Practitioner Acute Care
DX: R11.2 Nausea with vomiting, unspecified (principal)
CPT/HCPCS: 36415; 82024

== ENCOUNTER → 2024-11-24 | Outpatient (CLI) | payer MEDICARE, OTHER, SELFPAY ==
[2024-11-24 17:37] LABS: Absolute Neutrophil Count 3.5 X10^3/uL (2.0-7.7); Basophil# 0.09 X10^3/uL; Basophil% 1.7 % (0-1); Eosinophil# 0.22 X10^3/uL; Eosinophils% 4.1 % (0-5); Hematocrit 36.4 % (37-47); Hemoglobin 11.3 g/dL (12.0-15.0); Lymphocyte % 20.4 % (19-41); Mean Corpuscular Hgb 27.8 pg (27.0-32.0); Mean Corpuscular Volume 89.4 fL (81-99); Mean Platelet Vol. 11.8 fl (6.2-12.0); Monocyte# 0.41 X10^3/uL; Monocyte% 7.6 % (0-10); NRBC Flagged by Analyzer 0 % (0-5); Neutrophil # 3.54 X10^3/uL (2.7-7.7); Neutrophil % 65.8 % (47-70); Platelet Count 198 K/mm3 (150-450); RBC Distribution Width SD 45.4 fl (35.1-43.9); Red Blood Count 4.07 M/mm3 (4.2-5.4); White Blood Count 5.4 K/mm3 (4.4-11.0)
[2024-11-24 19:07] LABS: AST(SGOT) 15 U/L (15-37); Alanine Aminotransfer ALT/SGPT 16 U/L (13-56); Albumin, Serum 3.3 g/dL (3.2-5.0); Alkaline Phosphatase 68 U/L (45-117); Anion Gap 8 (5-15); BUN 31 mg/dL (7-18); BUN/Creat Ratio 14.5 RATIO (10-20); Calcium,Total 9.2 mg/dL (8.5-10.1); Chloride 107 mmol/L (98-107); Cholesterol 143 mg/dL (200); Creatinine, Serum 2.14 mg/dL (0.55-1.02); EST Glomerular Filtration Rate 24 mL/min (>60); Est Glom Filt Rate - Afr Amer 29 mL/min (>60); Globulin 3.2 g/dL (2.2-4.2); Glucose 127 mg/dL (74-106); High Density Lipoprotein 53 mg/dL; Potassium 4.8 mmol/L (3.5-5.1); Protein, Total 6.5 g/dL (6.4-8.2); Sodium Level 138 mmol/L (136-145); T4 Free Direct 1.22 ng/dL (0.76-1.46); Triglycerides 128 mg/dL; Very Low Density Lipoprotein 26 mg/dL (5-40)
[2024-11-24 19:12] LABS: Hemoglobin A1c 6.9 % (3.8-5.6)
== END | disposition home or self-care (01) ==
LOC: MFPLAB 14:17
PROVIDERS: PCP Family Medicine; Referring Provider Family Medicine; Visit Provider Family Medicine
DX: E03.9 Hypothyroidism, unspecified (principal); N18.4 Chronic kidney disease, stage 4 (severe); E11.22 Type 2 diabetes mellitus with diabetic chronic kidney disease
CPT/HCPCS: 36415; 80053; 80061; 83036; 83970; 84439; 84443; 85025

== ENCOUNTER → 2024-11-30 | Outpatient (CLI) | payer MEDICARE, OTHER, SELFPAY ==
[2024-11-30 11:20] LABS: Mucous, Urine 0 SEEN /hpf (<or=2+)
[2024-11-30 12:24] LABS: Color, Urine Yellow (Yellow); Glucose, Dipstick 1000 mg/dl (Normal); Ketone-Dipstick Negative (Negative); Leukocyte Esterase-Dipstick 25 /ul (Negative); Nitrite-Dipstick Negative (Negative); Occult Blood-Urine 10 /ul (Negative); Protein-Dipstick 100 mg/dl (Negative); Urine Bilirubin Dipstick Negative (Negative); Urine Clarity Cloudy (Clear); Urine Urobilinogen Normal (Normal)
[2024-11-30 12:56] LABS: Bacteria 4+ /hpf (None Seen); White Blood Cells 10-25 SEEN /hpf (0-5); Yeast-Urine 2+ /hpf (None Seen)
[2024-11-30 12:57] LABS: Red Blood Cells-Urine 0-5 SEEN /hpf (0-5); Squamous Epithelial Cells - UA 0-5 SEEN /hpf (5-10)
[2024-11-30 13:28] LABS: Microalbumin:Creatinine Ratio 553.6 mg/g CRE (<30 mg/g CRE); Protein, Urine (Random) 65.9 mg/dL (<11.9); Protein:Creat Ratio 776 mg/g CRE (0-200)
== END | disposition home or self-care (01) ==
LOC: LABSPEC 11:18
PROVIDERS: PCP Family Medicine; Referring Provider Family Medicine; Visit Provider Family Medicine
DX: E11.22 Type 2 diabetes mellitus with diabetic chronic kidney disease (principal); N18.4 Chronic kidney disease, stage 4 (severe)
CPT/HCPCS: 81001; 82043; 82570; 84156

== ENCOUNTER 2024-12-01 08:26 | Outpatient (CLI) | payer MEDICARE, OTHER, SELFPAY ==
[2024-12-01 08:51] VITALS: BP 154/61; PULSE 61; RESP 16; TEMP 35.9; O2SAT 97; BMI 39.8
[2024-12-01] MEDS: Cosyntropin 0.25 MG Vial IM (08:59)
[2024-12-01 10:05] VITALS: BP 182/62; PULSE 58; RESP 16; TEMP 36.3
== END 2024-12-01 23:59 | disposition home or self-care (01) ==
LOC: MEDOUTP 08:27
PROVIDERS: PCP Family Medicine; Referring Provider Nurse Practitioner Acute Care; Visit Provider Nurse Practitioner Acute Care
DX: K59.01 Slow transit constipation (principal); K86.89 Other specified diseases of pancreas; K21.9 Gastro-esophageal reflux disease without esophagitis
CPT/HCPCS: 36415; 82533; 96372; J0834

== ENCOUNTER → 2024-12-09 | Outpatient (CLI) | payer MEDICARE, OTHER, SELFPAY ==
[2024-12-09 18:24] LABS: Albumin, Serum 3.1 g/dL (3.2-5.0); BUN 26 mg/dL (7-18); BUN/Creat Ratio 13.4 RATIO (10-20); Calcium,Total 9.2 mg/dL (8.5-10.1); Chloride 106 mmol/L (98-107); Creatinine, Serum 1.94 mg/dL (0.55-1.02); EST Glomerular Filtration Rate 27 mL/min (>60); Est Glom Filt Rate - Afr Amer 32 mL/min (>60); Glucose 170 mg/dL (74-106); Phosphorus 3.3 mg/dL (2.5-4.9); Potassium 4.7 mmol/L (3.5-5.1); Sodium Level 137 mmol/L (136-145)
[2024-12-09 19:18] LABS: Protein:Creat Ratio 832 mg/g CRE (0-200)
== END | disposition home or self-care (01) ==
LOC: MFPLAB 16:22
PROVIDERS: PCP Family Medicine; Visit Provider Internal Medicine Nephrology
DX: N18.4 Chronic kidney disease, stage 4 (severe) (principal)
CPT/HCPCS: 36415; 80069; 82570; 84156

== ENCOUNTER → 2025-01-11 | Outpatient (CLI) | payer MEDICARE, OTHER, SELFPAY ==
--- NOTE | 2025-01-11 11:36 | RAD_ITS ---
EXAM: XR Chest, 2 Views CLINICAL INDICATION: TECHNIQUE: Frontal and lateral views of the chest. COMPARISON: No relevant prior studies available. FINDINGS: LUNGS AND PLEURAL SPACES: Unremarkable. No consolidation. No pneumothorax. HEART: Unremarkable. No cardiomegaly. MEDIASTINUM: Unremarkable. Normal mediastinal contour. BONES/JOINTS: Unremarkable. No acute fracture. RAD/Chest PA and Lateral IMPRESSION: No acute cardiopulmonary process. Reading Location: [facility]
== END | disposition home or self-care (01) ==
LOC: MTRAD 11:35
PROVIDERS: PCP Family Medicine
DX: J20.9 Acute bronchitis, unspecified (principal)
CPT/HCPCS: 71046

== ENCOUNTER → 2025-02-16 | Outpatient (CLI) | payer MEDICARE, OTHER, SELFPAY ==
[2025-02-16 16:22] LABS: Amphetamine Urine NEGATIVE (<1000 ng/mL); Barbiturate Urine NEGATIVE (< 200 ng/mL); Benzodiazepine Urine NEGATIVE (< 200 ng/mL); Buprenorphine Urine NEGATIVE (< 200 ng/mL); Cocaine Urine NEGATIVE (< 300 ng/mL); Fentanyl, Urine NEGATIVE; Methadone Urine PRESUMPTIVE POSITIVE (< 300 ng/mL); Opiates Urine NEGATIVE (< 300 ng/mL); Oxycodone, Urine NEGATIVE (< 100 ng/mL); PCP Urine NEGATIVE (< 25 ng/mL); THC Urine NEGATIVE (< 50 ng/mL)
== END | disposition home or self-care (01) ==
LOC: LAB 14:18
PROVIDERS: PCP Family Medicine; Referring Provider Anesthesiology Pain Medicine; Visit Provider Anesthesiology Pain Medicine
DX: F11.20 Opioid dependence, uncomplicated (principal)
CPT/HCPCS: 36415; 80307

== ENCOUNTER 2025-03-03 14:28 | Outpatient (CLI) | payer MEDICARE, OTHER, SELFPAY ==
[2025-03-03 17:56] LABS: Absolute Neutrophil Count 3.6 X10^3/uL (2.0-7.7); Basophil# 0.09 X10^3/uL; Basophil% 1.6 % (0-1); Eosinophil# 0.46 X10^3/uL; Eosinophils% 8.1 % (0-5); Hemoglobin 11.7 g/dL (12.0-15.0); Lymphocyte % 17.5 % (19-41); Mean Corp Hgb Conc 32.5 g/dL (32-36); Mean Corpuscular Hgb 29.7 pg (27.0-32.0); Mean Corpuscular Volume 91.4 fL (81-99); Mean Platelet Vol. 11.5 fl (6.2-12.0); Monocyte% 8.8 % (0-10); NRBC Flagged by Analyzer 0 % (0-5); Neutrophil # 3.64 X10^3/uL (2.7-7.7); Neutrophil % 63.6 % (47-70); Platelet Count 202 K/mm3 (150-450); RBC Distribution Width CV 12.6 % (11.6-14.6); RBC Distribution Width SD 41.6 fl (35.1-43.9); Red Blood Count 3.94 M/mm3 (4.2-5.4); White Blood Count 5.7 K/mm3 (4.4-11.0)
[2025-03-03 18:39] LABS: ALB/GLOB Ratio 1.4 RATIO (0.9-2.4); AST(SGOT) 22 U/L (<=31); Alanine Aminotransfer ALT/SGPT 13 U/L (<=34); Albumin, Serum 3.7 g/dL (3.4-4.8); Alkaline Phosphatase 65 U/L (35-104); Anion Gap 11 (5-15); BUN 20 mg/dL (4-19); BUN/Creat Ratio 12.1 RATIO (10-20); Calcium,Total 9.3 mg/dL (7.6-11.0); Carbon Dioxide 20.1 mmol/L (21.0-32.0); Chloride 104 mmol/L (98-108); Cholesterol 147 mg/dL (<=200); Creatinine, Serum 1.65 mg/dL (0.70-1.20); EST Glomerular Filtration Rate 32 (>60); Globulin 2.6 g/dL (2.2-4.2); Glucose 142 mg/dL (70-99); High Density Lipoprotein 47 mg/dL; Low Density Lipoprotein Calc. 70 mg/dL; Potassium 4.6 mmol/L (3.3-5.1); Protein, Total 6.3 g/dL (5.9-8.4); Sodium Level 136 mmol/L (133-145); Total Bilirubin 0.43 mg/dL (0.00-1.30); Triglycerides 153 mg/dL; Very Low Density Lipoprotein 31 mg/dL (5-40); cholesterol:hdl ratio screen 3.14
[2025-03-03 18:46] LABS: PTHIN 67 pg/mL (11-61)
[2025-03-03 19:02] LABS: Hemoglobin A1c 6.9 % (<=5.6)
[2025-03-03 19:10] LABS: Iron 87 ug/dL (50-170); Iron Binding Capacity,Total 279 ug/dL (250-450); Iron Binding Capacity,Unsat 192 ug/dL (228-428)
[2025-03-03 19:14] LABS: Ferritin 26 ng/mL (22-378); Vitamin B12 608 pg/mL (180-914); Vitamin D,25 Hydroxy 36.7 ng/mL (30-100)
== END 2025-03-03 23:59 | disposition home or self-care (01) ==
LOC: MFPLAB 14:29
PROVIDERS: PCP Family Medicine; Referring Provider Family Medicine; Visit Provider Family Medicine
DX: E03.9 Hypothyroidism, unspecified (principal); N18.4 Chronic kidney disease, stage 4 (severe); E11.69 Type 2 diabetes mellitus with other specified complication; E11.59 Type 2 diabetes mellitus with other circulatory complications; E11.22 Type 2 diabetes mellitus with diabetic chronic kidney disease; D63.8 Anemia in other chronic diseases classified elsewhere
CPT/HCPCS: 36415; 80053; 80061; 82306; 82607; 82728; 82746; 83036; 83540; 83550; 83970; 84439; 84443; 85025

== ENCOUNTER 2025-06-01 21:45 | Emergency (ER) | payer MEDICARE, OTHER, SELFPAY ==
[2025-06-01 21:45] VITALS: BP 151/101; PULSE 57; RESP 20; TEMP 36.2; O2SAT 100; BMI 40.4
--- OUTSIDE RECORDS SUMMARY | 2025-06-01 22:28 | XMS RPT_ITS | CCD ---
Author Organization [facility] Care Team Providers Care Supervisor [employer] Name Role Phone Marta Solo DO Primary Care Provider Coral Lima Primary Care Provider Dr. Marta Koehler Primary Care Provider Dr. Sunny Landin Attending Provider Marta Koehler Primary Care Provider RAJESH GARCIA Referring Unavailable SCHWILLIAM [facility] Unavailabl e RAJESH GARCIA Referring Unavailable [facility] ZAKIA, [facility] UnavailCÉSAR Valles Attending Unavailable RAJESH GARCIA Referring Unavailable RAJESH GARCIA Referring [facility]available [facility] ZAKIA, [facility] Unavailabl e RAJESH GARCIA Attending Unavailable RAJESH GARCIA Attending Unavailable DANICA SMITH Referring Unavailable [facility], [facility] UnavailOMARI Maradiaga Referring Unavailable [facility], [facility] Unavailabl e RAJESH GARCIA Referring Unavailable [facility] RAJESH GARCIA Referring Unavailable [facility] UnavailMarta Braun martine Primary Care Provider [phone] Dr. Marta Koehler Primary Care Provider [phone] Dr. Sunny Landin Attending Provider Dr. Bon Raines Referring Provider Dr. Alla De Anda Attending Provider Dr. Matty Huizar Referring Provider [phone] Dr. Marta Koehler Referring Provider Dr. Marco Chin Attending Provider [phone] Marta Koehler Primary Care Provider [phone] Dr. Sunny Landin Attending Provider Dr. Bon Raines Referring Provider Dr. Alla De Anda Attending Provider Dr. Matty Huizar Referring Provider [phone] Dr. Marta Koehler Referring Provider Dr. Marco Chin Attending Provider Dr. Mitchell Frazier Emergency Provider [phone] Brandi Castellon Admit Provider Dr. Brandi Castellon Other Provider Dr. Helen Torre Other Provider [phone] Dr. Miryam Lacey Attending Provider Dr. Miryam Lacey Other Provider Dr. Alexis Hays Attending Provider Dr. Miryam Lacey Referring Provider Dr. Marta Koehler Primary Care Provider [phone] Dr. Marta Koehler Primary Care Provider [phone] Dr. Marta Koehler Referring Provider Dr. Marco Chin Attending Provider [phone] Giorgio Dillon Attending Provider Dr. Pasha Vargas Referring Provider Dr. Marta Koehler Primary Care Provider [phone] Marta Koehler MD Primary Care Provider Dr. Marta Koehler Primary Care Provider [phone] Dr. Marta Koehler Referring Provider Dr. Marco Chin Attending Provider Zakia GILMAN, Dr. Marta Cheng Primary Care Provider [phone] Zakia GILMAN, Dr. Marta Cheng Referring Provider Ronnell TRUCK MECHANIC APPRENTICE-C, Irma Attending Provider Shabbir TRUCK MECHANIC APPRENTICE-C, Abeba Attending Provider Shabbir TRUCK MECHANIC APPRENTICE-C, Abeba Referring Provider Shabbir TRUCK MECHANIC APPRENTICE-C, Abeba Other Provider Lis GILMNA, Dr. Espinoza Attending Provider Zakia GILMAN, Dr. Marta Cheng Attending Provider Ronnell TRUCK MECHANIC APPRENTICE-C, Irma Referring Provider Oliver GILMAN, Dr. Pak Attending Provider Shankel TRUCK MECHANIC APPRENTICE-C, Carlita Attending Provider Shankel TRUCK MECHANIC APPRENTICE-C, Carlita Referring Provider Zakia GILMAN, Dr. Marta Cheng Primary Care Provider Ronnell TRUCK MECHANIC APPRENTICE-C, Irma Attending Provider Ronnell TRUCK MECHANIC APPRENTICE-C, Irma Referring Provider Zakia GILMAN, Dr. Marta Cheng Attending Provider [phone] Zakia GILMAN, Dr. Marta Cheng Referring Provider [phone] Dr. Duarte Espinal MD Attending Provider Dr. Duarte Espinal MD Referring Provider Dr. Marta Koehler MD Primary Care Provider [phone] Ronnell TRUCK MECHANIC APPRENTICE-C, Irma Attending Provider Ronnell TRUCK MECHANIC APPRENTICE-C, Irma Referring Provider Amalia Powers Attending Unavailable Marta Koehler Primary Care Unavailable Marco Chin Attending Unavailable Marta Koehler Primary Care Unavailable Irma Reynaga Attending Unavailable Schinner, Marta E Primary Care Unavailable Irma Reynaga Referring Unavailable Schinner, Marta E Referring Unavailable Schinner, Marta E Primary Care Unavailable Schinner, Marta E Attending Unavailable Schinner, Marta E Attending Unavailable Schinner, Marta E Primary Care Unavailable Pasha Vargas Attending Unavailable Schinner, Marta E Primary Care Unavailable Marco Chin Attending Unavailable Schinner, Marta E Referring Unavailable Schinner, Marta E Primary Care Unavailable Irma Reynaga Attending Unavailable Irma Reynaga Referring Unavailable Schinner, Marta E Primary Care Unavailable Shabbir HINES, Abeba Attending Unavailable Schinner, Marta E Primary Care Unavailable Lis, Tolna Attending Unavailable Lis, Tolna Referring Unavailable Schinner, Marta E Primary Care Unavailable Schinner, Marta E Primary Care Unavailable Schinner, Marta E Attending Unavailable Matty Huizar Attending Unavailable Matty Huizar Referring Unavailable Schinner, Marta E Primary Care Unavailable Shabbir HINES, Abeba Attending Unavailable Abeba Shea NP Referring Unavailable Schinner, Marta E Primary Care Unavailable Abeba Shea NP Referring Unavailable Abeba Shea NP Attending Unavailable Schinner, Marta E Primary Care Unavailable Irma Reynaga Attending Unavailable Schinner, Marta E Primary Care Unavailable Irma Reynaga Attending Unavailable Irma Reynaga Referring Unavailable Schinner, Marta E Primary Care Unavailable Schinner Marta E Attending Unavailable Schinner, Marta E Primary Care Unavailable Lis, Tolna Attending Unavailable Schinner, Marta E Primary Care Unavailable Lis, Alexis Attending Unavailable Abeba Shea NP Referring Unavailable Shabbir HINES, Abeba Consulting Unavailable Schinner, Marta E Primary Care Unavailable Schinner, Marta E Primary Care Unavailable Duarte Espinal Attending Unavailable Duarte Espinal Referring Unavailable Schinner, Marta E Referring Unavailable Schinner, Marta E Attending Unavailable Schinner, Marta E Primary Care Unavailable Schinner, Marta E Primary Care Unavailable Schinner, Marta E Attending Unavailable Schinner, Marta E Referring Unavailable Pasha Vargas Attending Unavailable Schinner, Marta E Primary Care Unavailable Schinner, Marta E Primary Care Unavailable Carlita Bowman NP Attending Unavailable Carlita Bowman NP Referring Unavailable Abeba Shea NP Attending Unavailable Schinner, Marta E Primary Care Unavailable Schinner, Marta E Referring Unavailable Shabbir HINES, Abeba Attending Unavailable Schinner, Marta E Primary Care Unavailable Friend, Marco Attending Unavailable Schinner Marta E Referring Unavailable Alexis Hays Attending Unavailable Irma Reynaga Attending Unavailable Schinner, Marta E Primary Care Unavailable Schinner, Marta E Referring Unavailable Schinner, Marta E Referring Unavailable Alicia Dumont Attending Unavail able Schinner, Marta E Primary Care Unavailable Schinner Marta E Referring Unavailable Irma Reynaga Attending Unavailable Piyushinpaola Marta E Primary Care Unavailable Friend, Marco Attending Unavailable Friend, Marco Referring Unavailable Schinner, Marta E Primary Care Unavailable Allergies Allergy Classification Reported Allergen(s) Allergy Type Date of Onset Reaction(s) Facility Penicillins (antibiotic) (1 source) Penicillins Drug Allergy 1 [facility] (20 sources) Penicillins; Translations: [PENICILLINS] Allergy to substance 0 Swelling [facility] Work Phone: (20 sources) telithromycin; Translations: [TELITHROMYCIN] Drug Allergy 0 Nausea/Vom/Madiha rrhea [facility] Work Phone: (16 sources) Bee Sting; Translations: [BEE STING] Propensity to adverse reactions 0 [facility] Work Phone: (14 sources) environmental [Other] Propensity to adverse reactions 0 [facility] Work Phone: (16 sources) Soap; Translations: [SOAP] Propensity to adverse reactions 0 Hives [facility] Work Phone: (20 sources) DULoxetine; Translations: [DULOXETINE] Drug Allergy 2 Mental Status Change [facility] (2 sources) OTHER; Translations: [OTHER] Propensity to adverse reactions (disorder) 0 [facility] Other [place] [facility] (1 source) DULoxetine Drug Allergy 3 [facility] (1 source) telithromycin Drug Allergy 5 [facility] Medications Current Medications Medication Drug Class(es) Dates Sig (Normalized) Sig (Original) acetaminophen 650 mg oral tablet (20 sources) Start: 10-30-2022 take 1 tablet by mouth twice daily Acetaminophen 650 mg Tablet Active 650 mg PO TWICE A DAY October 30, 2022 1:00am Start: 04-04-2021 End: 04-04-2021 acetaminophen (TYLENOL) tabl et 1,000 mg [id number] 200 actuat albuterol 0.09 mg/actuat metered dose inhaler (20 sources) beta2-Adrenergic Agonist Start: 12-08-2019 Albut kedar Sulfate 6.7 GM HFA aerosol inhaler Active 6.7 g IH EVERY 4 HOURS NEEDED as needed for Wheezing December 08, 2019 1:00am Start: 12-18-2009 ALBUTEROL 90 M CG/ACTUATION AEROSOL INHALER Inhale 2 Puffs as instructed as needed. SHAKE WELL BEFORE USING 0 12/18/2009 Active Start: 12-18-2009 take 1 puff(s) by in halation once daily as needed for wheezing ALBUTEROL 90 MCG/ACTUATION AEROSOL INHALER Inhale one(1) - two(2) puffs four(4) times a day as needed for wheezing and shortness of breath. 0 12/18/2009 Active albuterol sulfat e (PROVENTIL INHALATION) Inhale as instructed. 0 Active Albuterol (PROVE NTIL IN) Inhale into the lungs prn 0 Active Comment on above: Inhale one(1) - two( 2) puffs four(4) times a day as needed for wheezing and shortness of breath. Inhale as instructed . Inhale 2 Puffs as in structed as needed. SHAKE WELL BEFORE USING amLODIPine 10 mg oral tablet (20 sources) Dihydropyridine Calcium Channel Trav Start: take 1 tablet by mouth once daily Amlodipine 10 mg tablet Active 10 mg PO daily May 10, 2024 12:00am Start: 01-19-2023 End: 05-10-2024 take 1 tablet by mouth once daily Amlodipine 5 mg Tablet Discontinued 5 mg PO DAILY January 19, 2023 1:00am May 10, 2024 9:07am Start: 04-04-2021 amLODIPine (NO RVASC) tablet 5 mg apremilast 30 mg oral tablet (20 sources) Start: 02-05-2018 take 30 mg by mouth twice daily Apremilast Active 30 MG PO TWICE A DAY February 05, 2018 10:12am apremilast (OTEZ LA ORAL) Take by mouth. 0 Active Comment on above: Take by mouth. Take 30 mg by mouth twice daily. bisacodyl 5 mg delayed release oral tablet (1 source) Stimulant Laxative Start: 04-04-2021 take 5 mg by mouth once daily 5 mg, Oral, DAILY, First dose on Fri04/04/21 at 1500 Do not crush or break. Post-op calcium carbonate 1250 mg oral tablet (20 sources) Start: 04-04-2021 take 500 mg by mouth once daily 500 mg, Oral, DAILY, First dose on Fri04/04/21 at 1500 Start: 02-05-2018 take 1 tablet by ana th once daily Calcium Carbonate 600 MG tablet Active 600 mg PO DAILY February 05, 2018 12:00am carvedilol 6.25 mg oral tablet (20 sources) alpha-Adrenergic Trav, beta-Adrenergic Trav Start: 05-14-2024 take 1 tablet by mouth twice daily at mealtime Carvedilol 6.25 mg tablet Active 6.25 mg PO TWICE A DAY 180 May 14, 2024 12:00am must administer with a meal/food Start: 04-04-2021 carvedilol (CO REG) tablet 6.25 mg Start: 12-08-2019 End: 05-14-2024 take 1 capsule by mouth once daily Carvedilol Phosphate 20 MG capsule, ER multiphase 24 hr Discontinued 20 mg PO DAILY December 08, 2019 1:00am May 14, 2024 11:54am cholecalciferol 0.05 mg oral tablet (10 sources) Vitamin D Start: 04-04-2021 take 2000 [IU] by mouth once daily 2,000 Units, Oral, DAILY, First dose on Fri04/04/21 at 1500 Start: 06-26-2020 take 125 ug by mouth once daily Cholecalciferol (Vitamin D3) Active 125 MCG PO DAILY June 26, 2020 2:08pm Cholecalciferol (VITAMIN D) 50 MCG (2000 UT) CAPS capsule Take by mouth daily 0 Active Coenzyme B88-Wcnhogf E (20 sources) Start: 02-05-2018 Coenzyme Q10-V itamin E Active 1 EACH PO DAILY February 05, 2018 10:12am Start: 02-05-2018 Coenzyme Q10-V itamin E Active 1 EACH PO DAILY February 05, 2018 12:00am Start: 02-05-2018 Coenzyme Q10-V itamin E Active 1 EACH PO DAILY February 04, 2018 11:00pm Coenzyme N31-Hbvnmhw E 1 EACH capsule (3 sources) Start: 02-05-2018 take 1 capsule by mouth once daily Coenzyme K28-Ghiiwbu E 1 EACH capsule Active 1 NMA PO DAILY February 05, 2018 12:00am docusate sodium 100 mg oral capsule (20 sources) Start: 11-13-2022 take 1 capsule by mouth twice daily Docusate Sodium (Colace) 100 mg capsule Active 100 mg PO TWICE A DAY November 13, 2022 1:00am empagliflozin 25 mg oral tablet (3 sources) Sodium-Glucose Cotransporter 2 Inhibitor Start: 05-10-2024 take 1 tablet by mouth once daily Empagliflozin (Jardiance) 25 mg tablet Active 25 mg PO DAILY May 10, 2024 12:00am ferrous sulfate 325 mg oral tablet (9 sources) Start: 06-26-2020 Ferrous Sulfate (Ferrousul) 325 mg (65 mg iron) tablet Active 65 MG PO TWICE A DAY June 26, 2020 2:04pm take 65 mg by mouth once daily F errous Sulfate (IRON PO) Take 65 mg by mouth daily 0 Active 60 actuat formoterol fumarate 0.005 mg/actuat / mometasone furoate 0.2 mg/actuat metered dose inhaler (10 sources) Corticosteroid, beta2-Adrenergic Agonist Start: 04-04-2021 take 2 puff(s) by inhalation every twelve hours 2 puff, Inhalation, EVERY 12 HOURS, First dose on Fri04/04/21 at 1500 Rinse mouth out with water (without swallowing) after every dose. Start: 02-05-2018 take 1 puff(s) by in halation once daily Mometasone-Formoterol Active 2 PUFF IH DAILY February 05, 2018 10:12am gabapentin 400 mg oral capsule (20 sources) Anti-epileptic Agent Start: 02-05-2018 take 400 mg by mouth at bedtime Gabapentin Active 400 MG PO AT BEDTIME February 05, 2018 10:12am GABAPENTIN ORAL Take by mouth. 0 Active Comment on above: Take by mouth. glucagon (rdna) 1 mg injection (1 source) Antihypoglycemic Agent Start: 04-04-20 take 1 mL intravenously every hour 1 mg, Intramuscular, PRN, Low blood sugar, Blood glucose less than 70 mg/dL and patient NOT ALERT or NPO and does not have IV access., Starting on Fri04/04/21 at 1442 After administration, attempt intravenous access and start D5W at 100 mL/hr. Repeat blood glucose in 15 minutes x2 and notify provider. 150 ml glucose 50 mg/ml injection (3 sources) Start: 04-04-20 15 g, Oral, PRN, Low blood sugar, Starting on Fri04/04/21 at 1442 If blood glucose less than 50 mg/dL and patient ALERT and TOLERATING PO, give 2 tubes glucose gel. If blood glucose less than 70 mg/dL and patient ALERT and TOLERATING PO, give 1 tube glucose gel. Repeat blood glucose in 15 minutes. If blood glucose is less than 70 mg/dL, repeat treatment and recheck blood glucose in 15 minutes x2 and notify provider. Start: 04-04-2021 12.5 g, Intrav enous, PRN, Low blood sugar, Blood glucose less than 70 mg/dL and patient NOT ALERT or NPO., Starting on Fri04/04/21 at 1442 If patient does not respond within 5 minutes, repeat dose x1. Start D5W at 100 mL/hour until ordering provider can be reached. Repeat blood glucose in 15 minutes. If blood glucose is less than 70 mg/dL, repeat treatment and recheck blood glucose in 15 minutes x2. If using Glucostabilizer, dose as instructed per system. Start: 04-04-2021 100 mL/hr, Int ravenous, at 100 mL/hr, PRN, Low blood sugar, Starting on Fri04/04/21 at 1442 Start infusion following administration of dextrose 50% or glucagon. 1 ml hydrALAZINE hydrochloride 20 mg/ml injection (1 source) Arteriolar Vasodilator Start: 04-05-2021 hydrALAZINE (APRESOLINE) injection 10 mg HYDROmorphone (DILAUDID) injection 0.25 mg (1 source) Start: 04-04-2021 HYDROmorphone (DILAUDID) injection 0.25 mg insulin glargine 100 unt/ml injectable solution (20 sources) Insulin Analog Start: 04-04-2021 insulin glargi ne (LANTUS) injection vial 12 Units Start: 04-04-2021 inject 50 [IU] by bee bcutaneous injection once daily 50 Units, Subcutaneous, DAILY, First dose on Fri04/04/21 at 1500 Start: 02-05-2018 Insulin Glargi ne 100 UNITS/ML insulin pen Active 35 U SC 1000 February 05, 2018 12:00am Start: 02-05-2018 Insulin Glargi ne Active 35 UNITS subcut 1000 February 05, 2018 12:00am Start: 02-05-2018 Insulin Glargi ne Active 45 UNITS subcut 1000 February 04, 2018 11:00pm Start: 02-05-2018 Insulin Glargi ne Active 50 UNITS subcut 1000 February 05, 2018 10:12am Start: 08-26-2011 inject 44 [IU] by bee bcutaneous injection in the morning insulin glargine (LANTUS) 100 unit/mL SUBCUTANEOUS injection Inject subcutaneously. Inject 44 units in the AM 4 Vial 4 08/26/2011 Active insulin glargine (LANTUS) 100 UNIT/ML injection vial Inject 50 Units into the skin daily 0 Active Comment on above: Inject subcutaneousl y. Inject 44 units in the AM insulin lispro 100 unt/ml injectable solution (3 sources) Insulin Analog Start: 04-04-20 End: 04-04-20 insulin lispro (HUMALOG) injection vial 0-6 Units levothyroxine sodium 0.15 mg oral tablet (20 sources) l-Thyroxine Start: 05-10-20 take 1 tablet by mouth once daily Levothyroxine 150 mcg tablet Active 150 ug PO daily May 10, 2024 12:00am Start: 04-04-2021 take 200 ug by mouth once sarah y 200 mcg, Oral, DAILY, First dose on Fri04/04/21 at 1500 Tube feeding (TF) interaction, obtain physician order to manage, recommend holding TF for 30 minutes before and after dose. Start: 02-05-2018 End: 05-10-2024 Levothyroxine 175 MCG tablet Discontinued 175 ug PO SUTUWETHFRSA February 05, 2018 12:00am May 10, 2024 9:04am Start: 02-05-2018 Levothyroxine Active 200 MCG PO SUTUWETHFRSA February 05, 2018 10:12am Start: 11-05-2011 take 8.5 tablets by mouth every week levothyroxine 175 mcg ORAL tablet Take by mouth. 8.5 tabs per week 90 tablet 4 11/05/2011 Active take 200 ug by mouth once daily levothyroxine sodium (SYNTHROID ORAL) Take 200 mcg by mouth once daily. 0 Active levothyroxine so dium (SYNTHROID ORAL) Take by mouth. 0 Active take 1 tablet by ana th once daily levothyroxine (SYNTHROID) 200 MCG tablet Take 200 mcg by mouth daily -friday 0 Active Comment on above: Take by mouth. 8.5 t abs per week Take by mouth. Take 200 mcg by mout h once daily. lidocaine 0.04 mg/mg medicated patch (1 source) Antiarrhythmic, Amide Local Anesthetic Start: 04-04-20 lidocaine 4 % external patch 1 patch linaclotide 0.29 mg oral capsule (20 sources) Guanylate Cyclase-C Agonist Start: 05-10-20 take 1 capsule by mouth once daily as needed for constipation Linaclotide (Linzess) 290 mcg capsule Active 290 ug PO DAILY as needed for constipation May 10, 2024 12:00am Start: 12-08-2019 End: 06-26-2020 take 1 capsule by mouth once daily Linaclotide 290 MCG capsule Discontinued 1 {tbl} PO DAILY December 08, 2019 1:00am June 26, 2020 2:09pm End: 09-19-2022 linaclotide (LINZESS ORAL) T jorje 290 mg by mouth as needed. 0 09/19/2022 Discontinued linaclotide (MILAN ZESS ORAL) Take 290 mg by mouth as needed. 0 Active linaclotide (MILAN ZESS ORAL) Take by mouth. 0 Active Comment on above: Take by mouth. Take 290 mg by mouth as needed. linagliptin 5 mg oral tablet (1 source) Dipeptidyl Peptidase 4 Inhibitor Start: 1 linagliptin (TRADJENTA) tablet 5 mg methocarbamol 500 mg oral tablet (20 sources) Muscle Relaxant Start: 1 take 500 mg by mouth twice daily 500 mg, Oral, 2 TIMES DAILY, First dose on Fri04/04/21 at 2100 Start: 12-08-2019 take 500 mg by mouth three times daily Methocarbamol Active 500 MG PO THREE TIMES A DAY December 08, 2019 4:28pm End: 09-19-2022 methocarbamol (ROBAXIN ORAL) Take by mouth. 0 09/19/2022 Discontinued End: 09-19-2022 METHOCARBAMOL ORAL Take by m outh. 0 09/19/2022 Discontinued methocarbamol (R OBAXIN ORAL) Take by mouth. 0 Active METHOCARBAMOL OR AL Take by mouth. 0 Active Comment on above: Take by mouth. Mometasone-Formoter ol (20 sources) Start: 02-05-2018 take 1 puff(s) by inhalation once daily Mometasone-Formot kedar Active 2 PUFF IH DAILY February 05, 2018 12:00am Start: 02-05-2018 take 1 puff(s) by in halation once daily Mometasone-Formoterol Active 2 PUFF IH DAILY February 04, 2018 11:00pm Mometasone-Formoterol 8.8 GM HFA aerosol inhaler (3 sources) Start: 02-05-2018 Mometasone-Formoterol 8.8 GM HFA aerosol inhaler Active 2 NMA IH DAILY February 05, 2018 12:00am montelukast 10 mg oral tablet (20 sources) Leukotriene Receptor Antagonist Start: 12-18-2009 take 1 tablet by mouth once daily Montelukast 10 MG tablet Active 10 mg PO DAILY February 05, 2018 12:00am montelukast sodi um (SINGULAIR ORAL) Take by mouth. 0 Active Comment on above: Take one(1) tablet d aily at bedtime. Take by mouth. Take 10 mg by mouth once daily. Multiple Vitamin (MULTIVITAMIN ADULT PO) (1 source) Multiple Vitamin (MULTIVITAMIN ADULT PO) Take by mouth daily With iron and calcium 0 Active multivitamin 1 tablet (1 source) Start: 1 take 1 tablet by mouth once daily 1 tablet, Oral, DAILY, First dose on Fri04/04/21 at 1500 Multivitamin With Iron (20 sources) Start: 8 Multivitamin With Iron Active 1 EACH PO DAILY February 05, 2018 10:12am Start: 02-05-2018 Multivitamin W ith Iron Active 1 EACH PO DAILY February 05, 2018 12:00am Start: 02-05-2018 Multivitamin W ith Iron Active 1 EACH PO DAILY February 04, 2018 11:00pm Multivitamin With Iron 1 EACH tablet (3 sources) Start: 02-05-2018 take 1 tablet by mouth once daily Multivitamin With Iron 1 EACH tablet Active 1 NMA PO DAILY February 05, 2018 12:00am omeprazole 40 mg delayed release oral capsule (20 sources) Proton Pump Inhibitor Start: 12-08-2019 End: 06-26-2020 take 1 capsule by mouth once daily Omeprazole 40 mg capsule,delayed release(DR/EC) Active 40 mg PO DAILY June 26, 2020 12:00am ondansetron 4 mg oral tablet (20 sources) Serotonin-3 Receptor Antagonist Start: 09-27-2024 take 1 tablet by mouth every eight hours as needed for nausea and vomiting Ondansetron Hcl 4 mg tablet Active 4 mg PO Q8H as needed for nausea and vomiting September 27, 2024 1:00am Start: 01-09-2023 End: 07-24-2023 take 1 tablet by mouth every six hours as needed for nausea and vomiting Ondansetron Hcl 4 mg tablet Discontinued 4 mg PO EVERY 6 HOURS as needed for nausea and vomiting February 21, 2023 12:00am July 24, 2023 1:25pm Start: 08-21-2022 take 1 tablet by ana th every eight hours ondansetron orally disintegrating (ZOFRAN ODT) 4 mg disintegrating tablet dissolve 1 tablet ON TONGUE every 8 hours if needed 0 08/21/2022 Active Comment on above: dissolve 1 tablet ON TONGUE every 8 hours if needed oxyCODONE (1 source) Opioid Agonist Start: 04-04-2021 oxyCODONE (ROXICODONE) immediate release tablet 5 mg potassium chloride 20 meq powder for oral solution (20 sources) Start: 04-04-2021 10 mEq, Oral, DAILY, First dose on Fri04/04/21 at 1500 Dilute with at least 4 ounces of cold water. May further dilute if GI adverse effects occur. Start: 08-26-2011 End: 05-10-2024 take 1 tablet by mouth at lunch Potassium Chloride 20 MEQ tablet,ER particles/crystals Discontinued 20 meq PO WITH LUNCH February 05, 2018 12:00am May 10, 2024 9:09am Start: 08-26-2011 potassium chlo ride SR (K-DUR) 20 mEq ORAL tablet Take 0.5 tablets by mouth as needed. 0 08/26/2011 Active POTASSIUM CHLORI DE ORAL Take by mouth. 0 Active take 2 tablets by mo uth once daily POTASSIUM CHLORIDE PO Take 10 mEq by mouth daily 2 tabs 0 Active Comment on above: Take 0.5 tablets by mouth as needed. Take by mouth. Take 20 mEq by mouth as needed. pravastatin sodium 40 mg oral tablet (20 sources) HMG-CoA Reductase Inhibitor Start: 04-04-2021 take 20 mg by mouth once daily 20 mg, Oral, DAILY, First dose on Fri04/04/21 at 1500 Start: 02-05-2018 take 1 tablet by ana th at bedtime Pravastatin 20 MG tablet Active 20 mg PO AT BEDTIME February 05, 2018 12:00am pravastatin sodi um (PRAVASTATIN ORAL) Take by mouth. 0 Active Comment on above: Take by mouth. Take 20 mg by mouth once daily. prochlorperazine 10 mg oral tablet (8 sources) Phenothiazine Start: 2023 End: 2023 take 1 tablet by mouth every eight hours as needed for nausea and vomiting Prochlorperazine Maleate (Compazine) 10 mg tablet Active 10 mg PO Q8H as needed for nausea and vomiting August 05, 2024 8:31pm SITagliptin 100 mg oral tablet (20 sources) Dipeptidyl Peptidase 4 Inhibitor Start: 2017 take 1 tablet by mouth once daily Sitagliptin Phosphate 100 MG tablet Active 100 mg PO DAILY February 05, 2018 12:00am sitagliptin phos phate (JANUVIA ORAL) Take by mouth. 0 Active Comment on above: Take by mouth. Take 100 mg by mouth once daily. 3 ml sodium chloride 9 mg/ml injection (3 sources) Start: 1 take 1 dose intravenously twice daily 5-40 mL, Intravenous, EVERY 12 HOURS SCHEDULED (2 times per day), First dose on Fri04/04/21 at 2100 For Line Patency: Peripheral IV = 5 mL; Midline or Central Line = 10 mL/lumen. &nbs p;If following IV push medication, administer flush at same rate as the IV push. Flush volume is determined by type of infusion therapy being given. F or non-viscous solutions use: Periphera l IV = 5 mL Midline or Central Line = 10 mL/lumen &nbsp ;For viscous solutions (i.e. blood components, parenteral nutrition, contrast media, or after obtaining blood sample) use: Periphera l IV = 10 mL Midline or Central Line = 20 mL/lumen Post-op Start: 04-04-2021 take 5-40 mL intravenously onc e 5-40 mL, Intravenous, PRN, Line Care, Starting on Fri04/04/21 at 1442 After every IV line use Post-op Start: 04-04-2021 take 25 mL intraveno usly every hour as needed 25 mL, Intravenous, at 100 mL/hr, PRN, If patient receiving piggyback infusions without ordered maintenance IV fluids or with frequent/long duration piggyback infusions, Starting on Fri04/04/21 at 1442 Administer at the same rate as the piggyback being infused. Post-op traMADol hydrochloride 50 mg oral tablet (20 sources) Opioid Agonist Start: 10-30-2022 take 1 tablet by mouth twice daily Tramadol 50 mg tablet Active 50 mg PO TWICE A DAY October 30, 2022 1:00am trospium chloride 20 mg oral tablet (1 source) Cholinergic Muscarinic Antagonist Start: 04-04-2021 take 20 mg by mouth twice daily before mealtime 20 mg, Oral, 2 TIMES DAILY BEFORE MEALS, First dose on Fri04/04/21 at 1600 Give on empty stomach. Substituted for Tolterodine (DETROL). ubidecarenone 100 mg oral capsule (1 source) Coenzyme Q10 (COQ10) 100 MG CAPS Take by mouth daily 200 mg 0 Active vortioxetine 10 mg oral tablet (20 sources) Start: 10-30-2022 End: 09-27-2024 take 1 tablet by mouth once daily Vortioxetine (Trintellix) 10 mg tablet Active 20 mg PO DAILY September 27, 2024 12:17pm Completed/Discontinued Medications Medication Drug Class(es) Dates Sig (Normalized) Sig (Original) acetaminophen 500 mg / HYDROcodone bitartrate 5 mg oral capsule (14 sources) Opioid Agonist Hydrocodone-Acet ami nophen 5-500 mg cap Take by mouth. 0 Active Comment on above: Take by mouth. acetaminophen 325 mg / oxyCODONE hydrochloride 5 mg oral tablet (20 sources) Opioid Agonist Start: 11-13-2022 End: 09-16-2024 Oxycodone-Acetamino phen 5-325 mg tablet Discontinued 1 {tbl} PO EVERY 6 HOURS as needed for pain 14 November 13, 2022 September 16, 2024 3:52pm Start: 11-13-2022 take 1 tablet by ana th every six hours Oxycodone-Acetaminophen Active 1 TABLET PO EVERY 6 HOURS 14 November 13, 2022 Start: 12-08-2019 take 1 tablet by ana th twice daily Oxycodone-Acetaminophen Active 1 TABLET PO TWICE A DAY December 08, 2019 4:28pm take 1 tablet by ana th three times daily as needed for pain oxyCODONE-acetaminophen (PERCOCET) 5-325 MG per tablet Take 1 tablet by mouth 3 times daily as needed for Pain. 0 Active Acyclovir (20 sources) Herpesvirus Nucleoside Analog DNA Polymerase Inhibitor, Herpes Simplex Virus Nucleoside Analog DNA Polymerase Inhibitor, Herpes Zoster Virus Nucleoside Analog DNA Polymerase Inhibitor acyclovir (ZOVIRAX ORAL) Take by mouth as needed. 0 Active acyclovir (ZOVIR AX ORAL) Take by mouth. 0 Active ACYCLOVIR ORAL T jorje by mouth. 0 Active acyclovir (ZOVIR AX) 5 % ointment Apply topically Apply topically every 3 hours.prn 0 Active take 1 tablet by ana th twice daily as needed acyclovir (ZOVIRAX) 800 MG tablet Take 8 00 mg by mouth 2 times daily FOR HERPES , prn 0 Active Comment on above: Take by mouth. Take by mouth as nee ded. amLODIPine 5 mg / benazepril hydrochloride 20 mg oral capsule (20 sources) Dihydropyridine Calcium Channel Trav, Angiotensin Converting Enzyme Inhibitor Start: 12-08-2019 End: 01-19-2023 Amlodipine-Benazepril 5 MG-20 MG capsule Discontinued 1 {tbl} PO DAILY December 08, 2019 1:00am January 19, 2023 10:59am Start: 12-08-2019 End: 01-19-2023 take 1 tablet by mouth once daily Amlodipine-Benazepril Discontinued 1 TABLET PO DAILY December 08, 2019 1:00am January 19, 2023 10:59am take 1 capsule by mo [facility] once daily amLODIPine-benazepril (LOTREL) 2.5-10 mg per capsule Take 1 capsule by mouth once daily. 0 Active Comment on above: Take 1 capsule by [facility] once daily. amylase [id number] unt / lipase [id number] unt / protease [id number] unt delayed release oral capsule (20 sources) Start: 12-24-2022 End: 01-17-2025 Dnguyj-Kgheevqa-Loabahc (Creon) 36,000-114,000- 180,000 unit capsule,delayed release(DR/EC) Discontinued 0 PO .COMPLEX 1530 March 07, 2023 4:06pm January 17, 2025 12:52pm take 1-2 with snacks and 2-3 with meals, EPI K86.81 aprepitant 40 mg oral capsule (1 source) Substance P/Neurokinin-1 Receptor Antagonist Start: 04-04-2021 End: 04-04-2021 aprepitant (EMEND) capsule 40 mg Start: 04-04-2021 End: 04-04-2021 aprepitant (EMEND) capsule 4 0 mg aspirin 81 mg delayed release oral tablet (14 sources) Platelet Aggregation Inhibitor, Nonsteroidal Anti-inflammatory Drug Start: 12-18-2009 aspirin(ECOTRIN L OW STRENGTH 81 MG TAB) Take by mouth. 0 12/18/2009 Active Comment on above: Take one(1) tablet d aily. Take by mouth. azelastine hydrochloride 0.5 mg/ml ophthalmic solution (14 sources) Histamine-1 Receptor Antagonist Start: 03-14-2011 Azelastine HCl (OPTIVAR) 0.05 % ophthalmic solution 1 Drop as needed. 0 03/14/2011 Active Comment on above: 1 Drop as needed. beclomethasone dipropionate 0.08 mg/actuat metered dose nasal spray (20 sources) Corticosteroid beclomethasone dipropionate 80 mcg/actuation Use in the nose. 0 Active beclomethasone d ipropionate (QNASL NASAL) Use in the nose. 0 Active Comment on above: Use in the nose. Calcium (14 sources) Phosphate Binder, Calcium CALCIUM ORAL Take by mouth. 0 Active Comment on above: Take by mouth. calcium carbonate 1500 mg / cholecalciferol 200 unt oral tablet (14 sources) Vitamin D Start: 1 take 2 tablets by mouth once daily calcium carbonate 600 mg-cholecalciferol 200 units 600 mg-5 mcg (200 unit) tab Take 2 tablets by mouth once daily. 0 03/14/2011 Active Comment on above: Take 2 tablets by [facility] once daily. calcium chloride 0.0014 meq/ml / potassium chloride 0.004 meq/ml / sodium chloride 0.103 meq/ml / sodium lactate 0.028 meq/ml injectable solution (1 source) Start: 1 End: 1 lactated ringers infusion ceFAZolin (ANCEF) 3,000 mg in dextrose 5 % 100 mL IVPB (2 sources) Start: 1 End: 1 3,000 mg, Intravenous, EVERY 8 HOURS, 2 doses, First dose on Fri04/04/21 at 1800, Last dose on Fri04/05/21 at 0200, Post-op Start: 04-04-2021 End: 04-04-2021 ceFAZolin (ANCEF) 3,000 mg i n dextrose 5 % 100 mL IVPB cefdinir 300 mg oral capsule (20 sources) Cephalosporin Antibacterial Start: 01-19-2023 End: 02-02-2024 take 1 capsule by mouth twice daily Cefdinir 300 mg capsule Discontinued 300 mg PO TWICE A DAY January 19, 2023 1:00am February 02, 2024 4:12pm celecoxib 200 mg oral capsule (14 sources) Nonsteroidal Anti-inflammatory Drug celecoxib (CELEBREX) 200 mg capsule Indications: Hyperlipidemia Take by mouth. 0 Active Comment on above: one tablet twice bill ly Take by mouth. cetirizine hydrochloride 10 mg oral tablet (20 sources) Histamine-1 Receptor Antagonist Start: 12-18-2009 End: 09-27-2024 take 1 tablet by mouth once daily Cetirizine 10 MG tablet Discontinued 10 mg PO DAILY February 05, 2018 12:00am September 27, 2024 1:49pm cetirizine HCl ( ZYRTEC ORAL) Take by mouth. 0 Active Comment on above: Take one(1) tablet d aily. Take by mouth. Take by mouth once d aily. clindamycin 300 mg oral capsule (20 sources) Lincosamide Antibacterial Start: 12-08-19 End: 06-26-20 take 1 capsule by mouth every six hours Clindamycin Hcl 300 MG capsule Discontinued 300 mg PO EVERY 6 HOURS December 08, 2019 1:00am June 26, 2020 2:09pm enalapril maleate 20 mg oral tablet (14 sources) Angiotensin Converting Enzyme Inhibitor Start: 08-26-20 take 1 tablet by mouth once daily enalapril (VASOTEC) 20 mg ORAL tablet Take 1 tablet by mouth once daily. 90 tablet 4 08/26/2011 Active Comment on above: Take 1 tablet by ana th once daily. enteric contrast (will be provided with radiology test) (1 source) Start: 08-29-20 End: 08-29-20 take 1 dose by mouth once, then take 1 dose by mouth once enteric contrast (will be provided with radiology test) Take 1 Each by mouth one time only for [address] ABD/PEL WO Routine order Administer, As Directed One Time Only, via Oral, Rectal, both Oral and Rectal, Enteric Tube, Stoma or Indwelling Catheter, Enteric Contrast as designated per enteric contrast guidelines 1 Each 0 08/29/2022 08/29/2022 Comment on above: Take 1 Each by mouth one time only for [address] ABD/PEL WO Routine order Administer, As Directed One Time Only, via Oral, Rectal, both Oral and Rectal, Enteric Tube, Stoma or Indwelling Catheter, Enteric Contrast as designated per enteric contrast guidelines esomeprazole 40 mg delayed release oral capsule (20 sources) Proton Pump Inhibitor Start: 12-18-19 End: 06-26-20 take 1 capsule by mouth once daily Esomeprazole Magnesium 40 MG capsule Discontinued 40 mg PO DAILY February 05, 2018 12:00am June 26, 2020 1:55pm esomeprazole mag nesium (NEXIUM ORAL) Take by mouth. 0 Active Comment on above: Take one(1) capsule daily. Take by mouth. famotidine 20 mg oral tablet (14 sources) Histamine-2 Receptor Antagonist Start: 08-21-2022 take 1 tablet by mouth once daily before dinner famotidine (PEPCID) 20 mg tablet take 1 tablet by mouth once daily 30 TO 45 MINUTES BEFORE DINNER 0 08/21/2022 Active Start: 04-04-2021 End: 04-04-2021 famotidine (PEPCID) tablet 2 0 mg Comment on above: take 1 tablet by ana th once daily 30 TO 45 MINUTES BEFORE DINNER Fish Oil-DHA-EPA 1,200-144-216 mg ORAL Cap (14 sources) Fish Oil-DHA-EPA 1,200-144-216 mg ORAL Cap Indications: Type II or unspecified type diabetes mellitus without mention of complication, uncontrolled Take by mouth. 0 Active Fish Oil-DHA-EPA 1,200-144-216 mg ORAL Cap Indications: Type II or unspecified type diabetes mellitus without mention of complication, uncontrolled Take one(1) tablet daily. 0 Active Comment on above: Take one(1) tablet d aily. Take by mouth. furosemide 40 mg oral tablet (20 sources) Loop Diuretic Start: 09-16-2024 End: 09-27-2024 take 1 tablet by mouth once daily Furosemide 40 mg tablet Discontinued 40 mg PO DAILY September 23, 2024 2:18pm September 27, 2024 12:22pm Start: 05-10-2024 End: 09-16-2024 take 2 tablets by mouth once daily Furosemide 40 mg tablet Discontinued 80 mg PO DAILY May 10, 2024 9:03am September 16, 2024 3:53pm Start: 02-05-2018 End: 05-10-2024 take 1 tablet by mouth once daily as needed Furosemide 40 mg tablet Discontinued 40 mg PO DAILY as needed for WATER PILL June 26, 2020 1:56pm May 10, 2024 9:10am take 1 tablet by ana th twice daily furosemide 40 mg ORAL tablet Take one(1) tablet twice daily 0 Active furosemide (LASI X ORAL) Take by mouth. 0 Active Comment on above: Take one(1) tablet t wice daily Take by mouth. Take 40 mg by mouth as needed. glimepiride 4 mg oral tablet (14 sources) Sulfonylurea Start: 1 take 1 tablet by mouth twice daily at mealtime glimepiride (AMARYL) 4 mg ORAL tablet Take 1 tablet by mouth twice daily with meals. 180 tablet 4 08/26/2011 Active Comment on above: Take 1 tablet by ana th twice daily with meals. Glucosamine (15 sources) glucosamine sulf ate (GLUCOSAMINE ORAL) Take by mouth. 0 Active Glucosamine HCl (GLUCOSAMINE PO) Take by mouth 2 1 TIME A DAY 0 Active Comment on above: Take by mouth. Hydrocortisone (15 sources) Corticosteroid hydrocortisone ( PROCTOSOL HC RECTAL) by RECTAL route. 0 Active hydrocortisone ( PROCTOSOL HC) 2.5 % CREA rectal cream Place rectally 2 times daily 0 Active Comment on above: by RECTAL route. 1 ml HYDROmorphone hydrochloride 1 mg/ml cartridge (1 source) Opioid Agonist Start: 04-04-2021 End: 04-04-2021 HYDROmorphone (DILAUDID) injection 0.5 mg insulin glargine,hum.rec.anlog (LANTUS SUBCUTANEOUS) (14 sources) insulin glargine,hum.rec.anlog (LANTUS SUBCUTANEOUS) Inject subcutaneously. 0 Active Comment on above: Inject subcutaneousl y. Insulin Syringe-Needle U-100 0.5 mL 31 x 3/8" Misc Syrg (20 sources) Start: 08-26-2011 Insulin Syringe-Needle U-100 0.5 mL 31 x 3/8" Misc Syrg once a day 100 Syringe 11 08/26/2011 Active Start: 10-24-2010 Insulin Syring e-Needle U-100 0.5 mL 31 x 3/8" Misc Syrg use as directed 100 Syringe 11 10/24/2010 Active Comment on above: use as directed once a day iv contrast (will be provided with radiology test) (6 sources) Start: 09-18-2022 End: 09-19-2022 iv contrast (will be provided with radiology test) CT KIDNEY/PEL- Inject, intravenously, once for 1 dose.No IV access, insert saline lock prior to the beginning of sedation, infusion, injection of imaging exam. Discontinue saline lock post exam. If Pt. has a central line or IVAD, may access for administration according to line specific nursing protocol. Once exam is complete flush line and de-access according to line specific nursing protocol in the CT contrast administration guidelines link. 1 Each 0 09/18/2022 09/19/2022 Start: 09-18-2022 End: 09-19-2022 iv contrast (will be provide d with radiology test) CT KIDNEY/PEL- Inject, intravenously, once for 1 dose.No IV access, insert saline lock prior to the beginning of sedation, infusion, injection of imaging exam. Discontinue saline lock post exam. If Pt. has a central line or IVAD, may access for administration according to line specific nursing protocol. Once exam is complete flush line and de-access according to line specific nursing protocol in the CT contrast administration guidelines link. 1 Each 0 09/18/2022 09/19/2022 Active Start: 09-17-2022 iv contrast (w ill be provided with radiology test) CT kidney wow Inject, intravenously, once for 1 dose.No IV access, insert saline lock prior to the beginning of sedation, infusion, injection of imaging exam. Discontinue saline lock post exam. If Pt. has a central line or IVAD, may access for administration according to line specific nursing protocol. Once exam is complete flush line and de-access according to line specific nursing protocol in the CT contrast administration guidelines link. 1 Each 0 09/17/2022 Active Comment on above: CT kidney wow Inject , intravenously, once for 1 dose.No IV access, insert saline lock prior to the beginning of sedation, infusion, injection of imaging exam. Discontinue saline lock post exam. If Pt. has a central line or IVAD, may access for administration according to line specific nursing protocol. Once exam is complete flush line and de-access according to line specific nursing protocol in the CT contrast administration guidelines link. CT KIDNEY/PEL- Injec t, intravenously, once for 1 dose.No IV access, insert saline lock prior to the beginning of sedation, infusion, injection of imaging exam. Discontinue saline lock post exam. If Pt. has a central line or IVAD, may access for administration according to line specific nursing protocol. Once exam is complete flush line and de-access according to line specific nursing protocol in the CT contrast administration guidelines link. latanoprost 0.05 mg/ml ophthalmic solution (14 sources) Prostaglandin Analog Start: 12-18-2009 latanoprost(XALATAN 0.005 % EYE DROPS) Use in eyes. 0 12/18/2009 Active Start: 12-18-2009 take 1 drop(s) into the eye(s) once daily at bedtime latanoprost(XALATAN 0.005 % EYE DROPS) Place one(1) drop in the affected eye(s) once daily at bedtime. 0 12/18/2009 Active Comment on above: Place one(1) drop in the affected eye(s) once daily at bedtime. Use in eyes. levocetirizine dihydrochloride 5 mg oral tablet (20 sources) Histamine-1 Receptor Antagonist Start: 02-06-20 End: 09-27-20 24 take 1 tablet by mouth once daily Levocetirizine 5 MG tablet Discontinued 5 mg PO DAILY February 05, 2018 12:00am September 27, 2024 1:49pm levocetirizine d ihydrochloride (XYZAL ORAL) Take by mouth once daily. 0 Active levocetirizine d ihydrochloride (XYZAL ORAL) Take by mouth. 0 Active Comment on above: Take by mouth. Take by mouth once d aily. Wqmvvo-Zxzvltyf-Gxuehs e (Zenpep) 40,000-126,000- 168,000 unit capsule,delayed release(DR/EC) (20 sources) Start: 12-20-2022 End: 12-24-2022 Ghnveh-Mahkauiv-Fzuzyym (Zenpep) 40,000-126,000- 168,000 unit capsule,delayed release(DR/EC) Discontinued 0 PO .COMPLEX 320 December 20, 2022 1:00am December 24, 2022 1:40pm take 1-2 with snacks and 2-3 with meals Start: 12-20-2022 End: 12-24-2022 Inetpn-Itvoadwh-Gnmaaue (Gonzalez pep) 40,000-126,000- 168,000 unit capsule,delayed release(DR/EC) Discontinued 0 PO .COMPLEX 320 December 20, 2022 12:00am December 24, 2022 12:40pm take 1-2 with snacks and 2-3 with meals loratadine 10 mg oral tablet (14 sources) Start: 12-18-2009 loratadine(CLARITIN 10 MG TAB) Take one(1) tablet daily as needed for allergy symptoms. 0 12/18/2009 Active Comment on above: Take one(1) tablet d aily as needed for allergy symptoms. 1 ml LORazepam 2 mg/ml injection (1 source) Benzodiazepine Start: 04-04-2021 End: 04-04-2021 LORazepam (ATIVAN) injection 0.5 mg MEDICATION, NON-DATABASE (14 sources) MEDICATION, NON-DATABASE Medical Marijuana 0 Active Comment on above: Medical Marijuana melatonin 10 mg oral capsule (20 sources) Start: 10-30-2022 End: 09-16-2024 take 1 capsule by mouth once daily Melatonin 10 mg Capsule Discontinued 10 mg PO DAILY October 30, 2022 1:00am September 16, 2024 3:51pm Comment on above: Take 10 mg by mouth once daily. metroNIDAZOLE (15 sources) Nitroimidazole Antimicrobial metronidazole (METRO GEL TOPICAL) Apply to affected area. 0 Active metroNIDAZOLE (M ETROGEL EX) Apply topically daily 0 Active Comment on above: Apply to affected ar ea. 24 hr mirabegron 25 mg extended release oral tablet (14 sources) beta3-Adrenergic Agonist Start: 04-30-2019 take 1 tablet by mouth once daily mirabegron (MYRBETRIQ) 25 mg Tb24 Take 1 tablet by mouth once daily. 90 tablet 3 04/30/2019 Active Comment on above: Take 1 tablet by ana once daily. mometasone/formoterol (DULERA INHALATION) (14 sources) mometasone/formo tero l (DULERA INHALATION) Inhale as instructed once daily. 0 Active mometasone/formo terol (DULERA INHALATION) Inhale as instructed. 0 Active Comment on above: Inhale as instructed . Inhale as instructed once daily. MULTIVITAMIN ORAL (14 sources) MULTIVITAMIN ORA L Take by mouth. 0 Active Comment on above: Take by mouth. MULTIVITAMIN TAB (14 sources) Start: 12-18-2009 MULTIVITAMIN TAB Take by mouth. 0 12/18/2009 Active Start: 12-18-2009 MULTIVITAMIN T AB Take one(1) tablet daily. 0 12/18/2009 Active Comment on above: Take one(1) tablet d aily. Take by mouth. 24 hr niacin 500 mg extended release oral tablet (14 sources) Nicotinic Acid Start: 012 take 1 tablet by mouth twice daily at mealtime niacin sustained release (SLO-NIACIN) 500 mg ORAL tablet Take 1 tablet by mouth twice daily with meals. 180 tablet 4 11/21/2011 Active Comment on above: Take 1 tablet by ana twice daily with meals. nystatin [id number] unt/ml topical cream (14 sources) Polyene Antifungal nystatin (MYCOSTATIN) cream Apply to affected area twice daily. 0 Active Comment on above: Apply to affected ar ea twice daily. pioglitazone 45 mg oral tablet (14 sources) Peroxisome Proliferator Receptor alpha Agonist, Peroxisome Proliferator Receptor gamma Agonist, Thiazolidinedione Start: 011 take 1 tablet by mouth once daily pioglitazone (ACTOS) 45 mg ORAL tablet Take 1 tablet by mouth once daily. 90 tablet 4 08/26/2011 Active Comment on above: Take 1 tablet by ana once daily. POLYETHYLENE GLYCOL 3350 (20 sources) Osmotic Laxative Start: End: Miralax Discontinued 1 NMA OTHER DAILY October 30, 2022 1:00am September 27, 2024 12:20pm Start: 10-30-2022 Miralax Active 1 DOSE OTHER DAILY October 30, 2022 1:00am Start: 10-30-2022 Miralax Active 1 DOSE OTHER DAILY October 30, 2022 12:00am Start: 04-04-2021 17 g, Oral, DA NICOLÁS, First dose on Fri04/04/21 at 1500, Post-op polyethylene glycol 3350 [id number] mg / potassium chloride 2970 mg / sodium bicarbonate 6740 mg / sodium chloride 5860 mg / sodium sulfate 09145 mg powder for oral solution (1 source) Osmotic Laxative Start: 08-29-2022 End: 08-29-2022 peg 3350-Electrolytes (GOLYTELY) 236-22.74-6.74 -5.86 gram suspension Indications: Abnormal weight loss , Abdominal pain, unspecified abdominal location Take 4,000 mL by mouth one time only for 1 dose. Refer to printed prep instructions from your provider. 4000 mL 0 08/29/2022 08/29/2022 Comment on above: Take 4,000 mL by [facility] one time only for 1 dose. Refer to printed prep instructions from your provider. promethazine hydrochloride 25 mg rectal suppository (20 sources) Phenothiazine Start: 01-09-2023 End: 02-02-2024 Promethazine 25 mg suppository Discontinued 25 mg RC EVERY 6 HOURS as needed for nausea and vomiting January 09, 2023 1:00am February 02, 2024 4:23pm Start: 04-04-2021 promethazine ( PHENERGAN) tablet 12.5 mg raNITIdine 150 mg effervescent oral tablet (14 sources) Histamine-2 Receptor Antagonist ranitidine 150 mg OR AL TbEF Take by mouth. 0 Active Comment on above: Take one(1) tablet d aily. Take by mouth. 72 hr scopolamine 0.0139 mg/hr transdermal system (20 sources) Anticholinergic Start: 01-06-2023 End: 02-02-2024 Scopolamine Base 1 mg over 3 days patch 3 day Discontinued 1 NMA TD Every 3 Days as needed for nausea and vomiting January 06, 2023 1:00am February 02, 2024 4:16pm Start: 01-06-2023 End: 02-02-2024 Scopolamine Base Discontinue d 1 PATCH TD Every 3 Days January 06, 2023 1:00am February 02, 2024 4:16pm solifenacin succinate 10 mg oral tablet (3 sources) Cholinergic Muscarinic Antagonist Start: 05-10-2024 End: 09-27-2024 take 1 tablet by mouth once daily Solifenacin 10 mg tablet Discontinued 10 mg PO daily May 10, 2024 12:00am September 27, 2024 1:49pm sucralfate 100 mg/ml oral suspension (5 sources) Aluminum Complex Start: 02-02-2024 End: 09-27-2024 take 1 mL by mouth before mealtime Sucralfate 100 mg/mL suspension Discontinued 10 mL PO before meals 2726February 02, 2024 12:00am September 27, 2024 1:49pm Start: 02-02-2024 take 1 mL by mouth b efore mealtime Sucralfate Active 10 ML PO before meals 2726February 02, 2024 12:00am 24 hr tolterodine tartrate 4 mg extended release oral capsule (20 sources) Cholinergic Muscarinic Antagonist Start: 12-08-2019 DETROL LA 4 mg 24 hr capsule TAKE 1 CAPSULE DAILY 90 capsule 1 08/06/2021 Active Comment on above: TAKE 1 CAPSULE DAILY ubidecarenone (COQ-10 ORAL) (14 sources) take 100 mg by mouth once daily ubidecarenone (COQ-10 ORAL) Take 100 mg by mouth once daily. 0 Active ubidecarenone (C OQ-10 ORAL) Take by mouth. 0 Active Comment on above: Take by mouth. Take 100 mg by mouth once daily. Problems Active Problems Problem Classification Problem Date Documented Da te Episodic/Chronic Abdominal pain (20 sources) Abdominal pain; Translations: [Unspecified abdominal pain] Onset: Episodic Acute and unspecified renal failure (20 sources) Injury of kidney; Translations: [Acute kidney failure, unspecified] 01-17-2023 Episodic Acute bronchitis (1 source) Acute bronchitis, unspecified; Translations: [Acute bronchitis, unspecified] Onset: 5 Episodic Asthma (3 sources) Asthma; Translations: [Unspecified asthma, uncomplicated] 05-10-2024 Chronic Cancer of kidney and renal pelvis (20 sources) Clear cell carcinoma of kidney; 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, except renal pelvis] 01-18-2023 Chronic Cardiac dysrhythmias (20 sources) AV junctional rhythm; Translations: [Other specified cardiac arrhythmias] Onset: 4 01-17-2023 Chronic Chronic kidney disease (20 sources) Chronic kidney disease stage 4; Translations: [Chronic kidney disease, stage 4 (severe)] Onset: 5 01-18-2023 Chronic Deficiency and other anemia (20 sources) Anemia; Translations: [Anemia, unspecified] 12-09-2019 Episodic Deficiency and other anemia (9 sources) Anemia, unspecified; Translations: [Anemia, unspecified] 01-19-2023 Episodic Diabetes mellitus with complications (20 sources) Type 2 diabetes mellitus; Translations: [Type II or unspecified type diabetes mellitus without mention of complication, uncontrolled] Onset: 0 05-28-2010 Chronic Diabetes mellitus without complication (3 sources) Type 2 diabetes mellitus without complications; Translations: [Diabetes mellitus without mention of complication, type II or unspecified type, not stated as uncontrolled] 01-19-2023 Chronic Disorders of lipid metabolism (3 sources) Hyperlipidemia; Translations: [Hyperlipidemia, unspecified] 05-10-2024 Chronic Esophageal disorders (5 sources) Gastroesophageal reflux disease; Translations: [Gastro-esophageal reflux disease without esophagitis] Onset: 5 09-27-2024 Chronic Essential hypertension (20 sources) Hypertensive disorder; Translations: [Essential (primary) hypertension] 01-18-2023 Chronic Fluid and electrolyte disorders (20 sources) Acute hyperkalemia; Translations: [Hyperkalemia] 01-17-2023 Episodic Genitourinary congenital anomalies (20 sources) Absent kidney; Translations: [Solitary kidney] 01-18-2023 Chronic Menopausal disorders (14 sources) Atrophic vaginitis; Translations: [Postmenopausal atrophic vaginitis] Onset: 1 04-09-2011 Chronic Mood disorders (3 sources) Depressive disorder; Translations: [Depression] 05-10-2024 Chronic Other connective tissue disease (2 sources) Pain in lower limb; Translations: [Pain in leg, unspecified] Onset: 1 Episodic Other connective tissue disease (3 sources) Fibromyalgia; Translations: [Fibromyalgia] 05-10-2024 Episodic Other diseases of kidney and ureters (2 sources) Renal mass; Translations: [Other specified disorders of kidney and ureter] Chronic Other diseases of kidney and ureters (1 source) Disorder of kidney and/or ureter; Translations: [Other specified disorders of kidney and ureter] Chronic Other diseases of kidney and ureters (1 source) Other specified disorders of kidney and ureter; Translations: [Renal mass, left] Onset: 2 Chronic Other gastrointestinal disorders (3 sources) Irritable bowel syndrome; Translations: [Irritable bowel syndrome without diarrhea] 05-10-2024 Chronic Other gastrointestinal disorders (1 source) Alteration in bowel elimination; Translations: [Change in bowel habit] Episodic Other gastrointestinal disorders (1 source) Change in bowel habit; Translations: [Change in bowel habits] Onset: 2 Episodic Other gastrointestinal disorders (4 sources) Constipation; Translations: [Constipation, unspecified] 09-27-2024 Episodic Other gastrointestinal disorders (1 source) Slow transit constipation; Translations: [Slow transit constipation] Onset: 5 Episodic Other inflammatory condition of skin (20 sources) Psoriatic arthritis; Translations: [Arthropathic psoriasis, unspecified] Onset: 1 Chronic Other inflammatory condition of skin (9 sources) Arthropathic psoriasis, unspecified; Translations: [Psoriatic arthropathy] 01-19-2023 Chronic Other lower respiratory disease (20 sources) H/O: asthma; Translations: [Personal history of other diseases of the respiratory system] 06-26-2020 Episodic Other lower respiratory disease (3 sources) Dyspnea on exertion; Translations: [Other forms of dyspnea] 09-16-2024 Episodic Other nutritional; endocrine; and metabolic disorders (20 sources) H/O: Disorder; Translations: [Personal history of other endocrine, nutritional and metabolic disease] 06-26-2020 Episodic Other nutritional; endocrine; and metabolic disorders (20 sources) History of diabetes mellitus type 1; Translations: [Personal history of other endocrine, nutritional and metabolic disease] 06-26-2020 Episodic Other nutritional; endocrine; and metabolic disorders (20 sources) H/O: hypothyroidism; Translations: [Personal history of other endocrine, nutritional and metabolic disease] 06-26-2020 Episodic Other nutritional; endocrine; and metabolic disorders (5 sources) Abnormal weight loss; Translations: [Abnormal weight loss] Episodic Other nutritional; endocrine; and metabolic disorders (1 source) Weight loss; Translations: [Abnormal weight loss] Episodic Other nutritional; endocrine; and metabolic disorders (11 sources) Abnormal weight loss; Translations: [Loss of weight] Onset: 2 12-09-2022 Episodic Other nutritional; endocrine; and metabolic disorders (20 sources) Unintentional weight loss; Translations: [Abnormal weight loss] 12-09-2022 Episodic Other nutritional; endocrine; and metabolic disorders (5 sources) Personal history of other endocrine, nutritional and metabolic disease; Translations: [Personal history of other endocrine, metabolic, and immunity disorders] 01-17-2023 Episodic Pulmonary heart disease (4 sources) Pulmonary hypertension; Translations: [Pulmonary hypertension, unspecified] Onset: 4 05-10-2024 Chronic Residual codes; unclassified (3 sources) Dependence on biphasic positive airway pressure ventilation; Translations: [Dependence on other enabling machines and devices] 05-10-2024 Chronic Residual codes; unclassified (3 sources) Sleep apnea; Translations: [Sleep apnea, unspecified] 05-10-2024 Chronic Residual codes; unclassified (20 sources) Absent kidney; Translations: [Acquired absence of kidney] 01-18-2023 Episodic Residual codes; unclassified (3 sources) Acquired absence of kidney; Translations: [Acquired absence of kidney] 01-19-2023 Episodic Skin and subcutaneous tissue infections (20 sources) Cellulitis of leg, excluding foot; Translations: [Cellulitis of left lower limb] 12-09-2019 Episodic Spondylosis; intervertebral disc disorders; other back problems (3 sources) Cervical spondylosis; Translations: [Spondylosis without myelopathy or radiculopathy, cervical region] 05-10-2024 Chronic Substance-related disorders (1 source) Opioid dependence, uncomplicated; Translations: [Opioid dependence, uncomplicated] Onset: 5 Chronic Syncope (3 sources) Syncope; Translations: [Syncope and collapse] 05-14-2024 Episodic Thyroid disorders (15 sources) Hypothyroidism; Translations: [Hypothyroidism, unspecified] Onset: 0 12-18-2009 Chronic Past or Other Problems Problem Classification Problem Date Documented Da te Episodic/Chronic Cardiac dysrhythmias (20 sources) Bradycardia; Translations: [Bradycardia, unspecified] Onset: 4 01-17-2023 Episodic Cataract (20 sources) Cataract 05-31-2022 Nausea and vomiting (20 sources) Nausea and vomiting; Translations: [Nausea with vomiting, unspecified] Onset: 2 Episodic Other gastrointestinal disorders (1 source) Constipation, unspecified; Translations: [Constipation, unspecified] Onset: 4 Episodic Other lower respiratory disease (2 sources) Other forms of dyspnea; Translations: [Other forms of dyspnea] Onset: 4 Episodic Other screening for suspected conditions (not mental disorders or infectious disease) (1 source) Abnormal electrocardiogram [ECG] [EKG]; Translations: [Abnormal electrocardiogram [ECG] [EKG]] Onset: 4 Episodic Pancreatic disorders (not diabetes) (20 sources) Pancreatic insufficiency; Translations: [Other specified diseases of pancreas] Onset: 4 01-18-2023 Episodic Urinary tract infections (1 source) Acute cystitis with hematuria; Translations: [Acute cystitis with hematuria] Onset: 4 Episodic Results Test Name Value Interpretation Reference Range Facility [facility]on 03-18-2025 [facility] COMMENT Normal . [facility] Comment on above: Order Comment: [id number] 3URINE TOX Result Comment: TEST RESULTS LIMITS [id number]+SV2 Amphetamines Screen, Urine Negative ng/mL Eaqcyu=064 Amphetamine test includes Amphetamine and Methamphetamine. Barbiturates Negative ng/mL Bnumfr=707 Benzodiazepines Negative ng/mL Listxz=206 Cocaine (Metab.), Urine Negative ng/mL Vrefnh=316 Opiates Negative ng/mL Mqeakz=533 Opiate test includes Codeine, Morphine, Hydromorphone, Hydrocodone. 6-Acetylmorphine, Urine Negative ng/mL Cutoff=10 Oxycodone/Oxymorphone, Urine Negative ng/mL Yxocva=514 Test includes Oxycodone and Oxymorphone PCP, Urine Negative ng/mL Cutoff=25 Methadone Screen, Urine Negative ng/mL Bjzzze=657 Propoxyphene, Urine Negative ng/mL Kkfxzd=077 Fentanyl, Urine Negative ng/mL Cutoff=2.0 Test includes Fentanyl and Norfentanyl This test was developed and its performance characteristics determined by [facility]. It has not been cleared or approved by the Food and Drug Administration. Buprenorphine, Urine Negative ng/mL Cutoff=10 Creatinine, Urine 57.9 mg/dL 20.0-300.0 pH, Urine 5.4 4.5-8.9 TESTING PERFORMED AT [facility]. ORIGINAL REPORT ON FILE IN LAB CONTAINS ADDITIONAL TEST SITE INFORMATION. AMENDED REPORT 03/18/25 [address] [facility]4 previously reported as: COMMENT Performed By: #### L 500.2500, L503.6620, L100.0100 #### [facility] [place], [address] [facility] 4 [facility] Comment on above: Result Comment: TEST RESULTS LIMITS Tramadol Positive Brcqxl=492 Tramadol [place], [place], [place] 4503 ng/mL Cutoff=1 TESTING PERFORMED AT [facility]. ORIGINAL REPORT ON FILE IN LAB CONTAINS ADDITIONAL TEST SITE INFORMATION. Performed By: #### L 500.2500, L503.6620, L100.0100 #### [facility] [address] [place], [address] Cardiology Visit Reporton Cardiology Visit Report [facility] [address] [place] [address] OFFICE VISIT Date of Service: 03/15/25 MR#: [id number] Acct: [id number] Name: EVERTON BEATTY Rep #: [id number] : 1945 Provider: DAVID Angel Age/Sex: 79/F Location: [facility] [place] Status: Signed HPI HPI History of Present Illness Details: This is a 79-year-old lady who presents today for a cardiovascular follow-up visit. She has a history of hypertension, chronic kidney disease, pancreatic insufficiency, renal cell carcinoma status post nephrectomy left who apparently presented to see the pain doctor. She was noted to be bradycardic and so was sent to cardiology for further evaluation and management. She does continue to have positional dizziness. She has not had any syncope. She does not have any chest pain/heaviness. She does have SOB but this is no worse than before. She is in a WC. She does take care of her with Alzheimers. Intake Vital Signs 09/16/24 14:49 03/15/25 14:02 03/15/25 14:49 Height 5 ft 3 in 5 ft 3 in Weight: 230 lb BMI 40.7 BP 164/52 H 130/60 H Blood Pressure Location Lt brachial Position Sitting Respiration 16 Pulse 70 Pulse Source NIBP Intake Visit Reasons: 6 M FU [employer]ified [employer] Required: No Is patient in pain?: No Allergies telithromycin (From Ketek) Allergy (Severe, Verified 12/02/24 13:06) Nausea/Vom/Diarrhea Penicillins (PCN) Allergy (Verified 12/02/24 13:06) Swelling Medications ???Medication ???Instructions ???Recorded ???Confirmed ???Type calcium carbonate 600 mg PO DAILY SUPPLEMENT 8 03/15/25 History coenzyme Q10 100 mg-vitamin E 10 1 ea PO DAILY Check with primary 0 02/05/18 03/15/25 History unit capsule doctor mometasone-formoterol HFA 200 2 puff IH DAILY ASTHMA 02/05/18 History mcg-5 mcg/actuation aerosol inhaler montelukast 10 mg tablet 10 mg PO DAILY Check with primary 02/05/18 03/15/25 History doctor multivitamin with iron 1 ea PO DAILY SUPPLEMENT 02/05/18 03/15/25 History pravastatin 20 mg tablet 20 mg PO QHS CHOLESTEROL 02/05/18 03/15/25 History sitagliptin phosphate 100 mg tablet 100 mg PO DAILY DIABETES 03/15/25 History albuterol sulfate 90 mcg/actuation 6.7 g IH Q4H PRN PRN Wheezing 03/15/25 History aerosol inhaler omeprazole 40 mg capsule,delayed 40 mg PO DAILY Check with primary 06/26/20 03/15/25 History release doctor acetaminophen 650 mg tablet 650 mg PO BID Check with primary 1 12/31/21 03/15/25 History doctor docusate sodium 100 mg capsule 100 mg PO BID #20 caps 11/13/22 Rx (Colace) empagliflozin 25 mg tablet 25 mg PO DAILY 05/10/24 03/15/25 H istory (Jardiance) levothyroxine 150 mcg tablet 150 mcg PO QDAY 05/10/24 03/15/25 History linaclotide 290 mcg capsule 290 mcg PO DAILY PRN constipation 05/10/24 03/15/25 History (Linzess) carvedilol 6.25 mg tablet 6.25 mg PO BID #180 tabs 05/14/24 03/15/25 Rx furosemide 40 mg tablet 40 mg PO DAILY PRN WATER PILL 09/1003/15/25 History vortioxetine 10 mg tablet 20 mg PO DAILY Check with primary 09/27/24 03/15/25 History (Trintellix) doctor [id number] See Rx Instructions PO .COMPLEX 03/15/25 Rx 36,000-114,000-180,000 unit #1,530 caps capsule,delay rel (Creon) acyclovir 800 mg tablet 800 mg PO QDAY 03/15/25 03/15/25 H istory insulin glargine 100 unit/mL (3 14 unit subcut QDAY diabetes 03/1503/15/25 History mL) subcutaneous pen polyethylene glycol 3350 17 17 g PO QDAY 03/15/25 03/15/25 His tory gram/dose oral powder (Miralax) tramadol 50 mg tablet 50 mg PO TID Check with primary 03/15/25 History doctor Ejection fraction %: 60 Have you fallen in the past year?: Yes PFSH Medical History Hyperlipidemia Pulmonary hypertension Pancreatic insufficiency Hypertension Solitary kidney, acquired CKD (chronic kidney disease) stage 4, GFR 15-29 ml/min Diabetes mellitus, type 2 Bradycardia with 41-50 beats per minute AV junctional rhythm History of hypothyroidism History of diabetic neuropathy Nausea vomiting Acute kidney injury superimposed on CKD Anemia 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 Normal [facility] Absolute neutrophil countOrd ered By: Marta Koehler on 03-03-2025 Neutrophils (Bld) [#/Vol] 3.6 10*3/uL 2.0-7.7 [facility] Anion gap in Serum or Plasma Ordered By: Marta Koehler on 03-03-2025 Anion gap [Moles/Vol] 11 mmol/L 5-15 [facility] BUN/creatinine ratioOrdered By: Marta Koehler on 03-03-2025 Urea nitrogen/Creatinine [Mass ratio] 12.1 mg/mg 10-20 [facility] Basophil percentageOrdered B y: Marta Koehler on 03-03-2025 Basophils/100 WBC (Bld) 1.6 % High 0-1 [facility] Bilirubin, totalOrdered By: Marta Koehler on 03-03-2025 Bilirubin [Mass/Vol] 0.43 mg/dL 0.00-1.30 [facility] CBC W/Diff, Automatedon 02-09 Absolute Lymph 1.00 X10 3/uL Normal 0.83-4.51 [facility] Comment on above: Performed By: #### L 500.2500, L503.6620, L100.0100 #### [facility] [address] [place], [address] Absolute Neut 3.6 X10 3/uL Normal 2.0-7.7 [facility] Comment on above: Performed By: #### L 500.2500, L503.6620, L100.0100 #### [facility] [address] [place], [address] Basophils/100 WBC (Bld) 1.6 % High 0-1 [facility] Comment on above: Performed By: #### L 500.2500, L503.6620, L100.0100 #### [facility] [address] [place], [address] Eosinophils/100 WBC (Bld) 8.1 % High 0-5 [facility] Comment on above: Performed By: #### L 500.2500, L503.6620, L100.0100 #### [facility] [address] [place], [address] Erythrocyte distribution width (RBC) [Ratio] 12.6 % Normal 11.6-14.6 [facility] Comment on above: Performed By: #### L 500.2500, L503.6620, L100.0100 #### [facility] [address] [place], [address] Hematocrit (Bld) [Volume fraction] 36.0 % Low 37-47 [facility] Comment on above: Performed By: #### L 500.2500, L503.6620, L100.0100 #### [facility] [address] [place], [address] Hemoglobin (Bld) [Mass/Vol] 11.7 g/dL Low 12.0-15.0 [facility] Comment on above: Performed By: #### L 500.2500, L503.6620, L100.0100 #### [facility] [address] [place], [address] IG% 0.400 Normal 0.0-0.9 [facility] Comment on above: Result Comment: IG% - Immature Granulocytes (promyelocytes, myelocytes and metamyelocytes) > 1% indicates that a LEFT SHIFT is Present. Performed By: #### L 500.2500, L503.6620, L100.0100 #### [facility] [address] [place], [address] Lymphocytes/100 WBC (Bld) 17.5 % Low 19-41 [facility] Comment on above: Performed By: #### L 500.2500, L503.6620, L100.0100 #### [facility] [address] [place], [address] MCH (RBC) [Entitic mass] 29.7 pg Normal 27.0-32.0 [facility] Comment on above: Performed By: #### L 500.2500, L503.6620, L100.0100 #### [facility] [address] [place], [address] MCHC (RBC) [Mass/Vol] 32.5 g/dL Normal 32-36 [facility] Comment on above: Performed By: #### L 500.2500, L503.6620, L100.0100 #### [facility] [address] [place], [address] MCV (RBC) [Entitic vol] 91.4 fL Normal 81-99 [facility] Comment on above: Performed By: #### L 500.2500, L503.6620, L100.0100 #### [facility] [address] [place], [address] Monocytes/100 WBC (Bld) 8.8 % Normal 0-10 [facility] Comment on above: Performed By: #### L 500.2500, L503.6620, L100.0100 #### [facility] [address] [place], [address] Neutrophils/100 WBC (Bld) 63.6 % Normal 47-70 [facility] Comment on above: Performed By: #### L 500.2500, L503.6620, L100.0100 #### [facility] [address] [place], [address] Nucleated RBC (Bld) [#/Vol] 0 10*3/uL Normal 0-5 [facility] Comment on above: Performed By: #### L 500.2500, L503.6620, L100.0100 #### [facility] [address] [place], [address] Platelet mean volume (Bld) [Entitic vol] 11.5 fL Normal 6.2-12.0 [facility] Comment on above: Performed By: #### L 500.2500, L503.6620, L100.0100 #### [facility] [address] [place], [address] Platelets (Bld) [#/Vol] 202 10*3/uL Normal 150-450 [facility] Comment on above: Performed By: #### L 500.2500, L503.6620, L100.0100 #### [facility] [address] [place], [address] RBC (Bld) [#/Vol] 3.94 10*6/uL Low 4.2-5.4 [facility] Comment on above: Performed By: #### L 500.2500, L503.6620, L100.0100 #### [facility] [address] [place], [address] RDW SD 41.6 fl Normal 35.1-43.9 [facility] Comment on above: Performed By: #### L 500.2500, L503.6620, L100.0100 #### [facility] [address] [place], [address] WBC (Bld) [#/Vol] 5.7 10*3/uL Normal 4.4-11.0 [facility] Comment on above: Performed By: #### L 500.2500, L503.6620, L100.0100 #### [facility] [address] [place], [address] Calculated total iron bindin g capacityOrdered By: Marta Koehler on 03-03-2025 Total Iron Binding Capacity 279 ug/dL 250-450 [facility] Calculated very low density lipoprotein (VLDL) cholesterol measurementOrdered By: Marta Koehler on 03-03-2025 VLDL Cholesterol 31 mg/dL 5-40 [facility] Carbon dioxide, total [Moles /volume] in Central venous bloodOrdered By: Marta Koehler on 03-03-2025 CO2 [Moles/Vol] 20.1 mmol/L Low 21.0-32.0 [facility] Chloride assayOrdered By: Opal Koehler on 03-03-2025 Chloride [Moles/Vol] 104 mmol/L 98-108 [facility] Comprehensive Metabolic Prof ilon 03-03-2025 Albumin [Mass/Vol] 3.7 g/dL Normal 3.4-4.8 [facility] Comment on above: Performed By: #### L 500.2500, L503.6620, L100.0100 #### [facility] [address] [place], [address] Albumin/Globulin [Mass ratio] 1.4 {ratio} Normal 0.9-2.4 [facility] Comment on above: Performed By: #### L 500.2500, L503.6620, L100.0100 #### [facility] [address] [place], [address] ALK PHOS 65 U/L Normal 35-104 [facility] Comment on above: Performed By: #### L 500.2500, L503.6620, L100.0100 #### [facility] [address] [place], [address] ALT [Catalytic activity/Vol] 13 U/L Normal <=34 [facility] Comment on above: Performed By: #### L 500.2500, L503.6620, L100.0100 #### [facility] [address] [place], [address] AST [Catalytic activity/Vol] 22 U/L Normal <=31 [facility] Comment on above: Performed By: #### L 500.2500, L503.6620, L100.0100 #### [facility] [address] [place], [address] Bilirubin [Mass/Vol] 0.43 mg/dL Normal 0.00-1.30 [facility] Comment on above: Performed By: #### L 500.2500, L503.6620, L100.0100 #### [facility] [address] [place], [address] BUN/CRE 12.1 RATIO Normal 10-20 [facility] Comment on above: Performed By: #### L 500.2500, L503.6620, L100.0100 #### [facility] [address] [place], [address] Calcium [Mass/Vol] 9.3 mg/dL Normal 7.6-11.0 [facility] Comment on above: Performed By: #### L 500.2500, L503.6620, L100.0100 #### [facility] [address] [place], [address] Chloride [Moles/Vol] 104 mmol/L Normal 98-108 [facility] Comment on above: Performed By: #### L 500.2500, L503.6620, L100.0100 #### [facility] [address] [place], [address] CO2 [Moles/Vol] 20.1 mmol/L Low 21.0-32.0 [facility] Comment on above: Performed By: #### L 500.2500, L503.6620, L100.0100 #### [facility] [address] [place], [address] Creatinine [Mass/Vol] 1.65 mg/dL High 0.70-1.20 [facility] Comment on above: Performed By: #### L 500.2500, L503.6620, L100.0100 #### [facility] [address] [place], [address] GAP 11 Normal 5-15 [facility] Comment on above: Performed By: #### L 500.2500, L503.6620, L100.0100 #### [facility] [address] [place], [address] GFR/1.73 sq M.predicted among non-blacks MDRD (S/P/Bld) [Vol rate/Area] 32 mL/min/{1.73_m2} Low >60 [facility] Comment on above: Result Comment: mL/m in/1.73m2 CKD-EPI Creatinine Equation (2020) Performed By: #### L 500.2500, L503.6620, L100.0100 #### [facility] [address] [place], [address] Globulin (S) [Mass/Vol] 2.6 g/dL Normal 2.2-4.2 [facility] Comment on above: Performed By: #### L 500.2500, L503.6620, L100.0100 #### [facility] [address] [place], [address] Glucose [Mass/Vol] 142 mg/dL High 70-99 [facility] Comment on above: Performed By: #### L 500.2500, L503.6620, L100.0100 #### [facility] [address] [place], [address] Potassium [Moles/Vol] 4.6 mmol/L Normal 3.3-5.1 [facility] Comment on above: Performed By: #### L 500.2500, L503.6620, L100.0100 #### [facility] [address] [place], [address] Sodium [Moles/Vol] 136 mmol/L Normal 133-145 [facility] Comment on above: Performed By: #### L 500.2500, L503.6620, L100.0100 #### [facility] [address] [place], [address] T PROT 6.3 g/dL Normal 5.9-8.4 [facility] Comment on above: Performed By: #### L 500.2500, L503.6620, L100.0100 #### [facility] [address] [place], [address] Urea nitrogen [Mass/Vol] 20 mg/dL High 4-19 [facility] Comment on above: Performed By: #### L 500.2500, L503.6620, L100.0100 #### [facility] [address] [place], [address] Eosinophil percentageOrdered By: Marta Koehler on 03-03-2025 Eosinophils/100 WBC (Bld) 8.1 % High 0-5 [facility] Erythrocyte distribution wid th (RBC) [Ratio]Ordered By: Marta Koehler on 03-03-2025 Erythrocyte distribution width (RBC) [Entitic vol] 41.6 fL 35.1-43.9 [facility] Erythrocyte distribution wid th ratioOrdered By: Marta Koehler on 03-03-2025 Erythrocyte distribution width (RBC) [Ratio] 12.6 % 11.6-14.6 [facility] Ferritinon 03-03-2025 Ferritin [Mass/Vol] 26 ng/mL Normal 22-378 [facility] Comment on above: Performed By: #### L 500.2500, L503.6620, L100.0100 #### [facility] [address] [place], [place], [address] Folate [Moles/Vol]Ordered By : Marta Koehler on 03-03-2025 Serum Folate 26.10 ng/mL 4.60-34.80 [facility] Comment on above: Hemolysis, Results w ill be affected, Requires Recollection. Folates,Serum (Folic Acid)on 03-03-2025 FOLATES,SERUM 26.10 ng/mL Normal 4.60-34.80 [facility] Comment on above: Order Comment: N Result Comment: Hemo lysis, Results will be affected, Requires Recollection. Performed By: #### L 500.2500, L503.6620, L100.0100 #### [facility] [address] [place], [place], [id number] GFR/1.73 sq M.predicted sesar g non-blacks MDRD (S/P/Bld) [Vol rate/Area]Ordered By: Marta Koehler on 03-03-2025 Estimated GFR (MDRD) Non-Af Amer 32 Low >60 [facility] Comment on above: mL/min/1.73m2 CKD-EP I Creatinine Equation (2020) Hematocrit Auto (Bld) [Volum e fraction]Ordered By: Marta Koehler on 03-03-2025 Hematocrit (Bld) [Volume fraction] 36.0 % Low 37-47 [facility] Hemoglobin A1con 03-03-2025 HbA1c (Bld) [Mass fraction] 6.9 % High <=5.6 [facility] Comment on above: Result Comment: Norm al < 5.7 % Prediabetic 5.7 - 6.4 % Diabetic >or= 6.5 % Please note range changes. Performed By: #### L 500.2500, L503.6620, L100.0100 #### [facility] [address] [place], [address] Hemoglobin A1c percentageOrd ered By: Marta Koehler on 03-03-2025 HbA1c (Bld) [Mass fraction] 6.9 % High <5.7 [facility] Comment on above: Normal < 5.7 % Predi abetic 5.7 - 6.4 % Diabetic >or= 6.5 % Please note range changes. Hemoglobin measurementOrdere d By: Marta Koehler on 03-03-2025 Hemoglobin (Bld) [Mass/Vol] 11.7 g/dL Low 12.0-15.0 [facility] Immature granulocytes/100 WB C Auto (Bld)Ordered By: Marta Koehler on 03-03-2025 Immature granulocytes/100 WBC (Bld) 0.400 % 0.0-0.9 [facility] Comment on above: IG% - Immature Granu locytes (promyelocytes, myelocytes and metamyelocytes) > 1% indicates that a LEFT SHIFT is Present. Iron (Unsp spec) [Mass/Mass] Ordered By: Marta Koehler on 03-03-2025 Iron [Mass/Vol] 87 ug/dL 50-170 [facility] Iron saturation [Mass fracti on]Ordered By: Marta Koehler on 03-03-2025 Iron Saturation 31.0 % 13-59 [facility] Iron+Iron Binding Capacityon 03-03-2025 Iron [Mass/Vol] 87 ug/dL Normal 50-170 [facility] Comment on above: Performed By: #### L 500.2500, L503.6620, L100.0100 #### [facility] [address] [place], [address] IRON SATURATION 31.0 Normal 13-59 [facility] Comment on above: Performed By: #### L 500.2500, L503.6620, L100.0100 #### [facility] [address] [place], [address] TIBC 279 ug/dL Normal 250-450 [facility] Comment on above: Performed By: #### L 500.2500, L503.6620, L100.0100 #### [facility] [address] [place], [address] UIBC 192 ug/dL Low 228-428 [facility] Comment on above: Performed By: #### L 500.2500, L503.6620, L100.0100 #### [facility] [address] [place], [address] LDL calc ser/plasOrdered By: Marta Koehler on 03-03-2025 LDL Cholesterol, Calculated 70 mg/dL [facility] Comment on above: Amqjbltldk=943-417 m g/dL & Higher Hyzo=293 mg/dL or greater Laboratory - Chemistry and C hemistry - challengeOrdered By: Marta Koehler on 03-03-2025 AST [Catalytic activity/Vol] 22 U/L <32 [facility] Lipid Profileon 03-03-2025 CHOL:HDL 3.14 Normal [facility] Comment on above: Performed By: #### L 500.2500, L503.6620, L100.0100 #### [facility] [address] [place], [address] Cholesterol [Mass/Vol] 147 mg/dL Normal <=200 [facility] Comment on above: Result Comment: Chol esterol level, Desirable <200 mg/dL Borderline high cholesterol 200-239 mg/dL High cholesterol >=240 mg/dL Recommendations of the NCEP Adult Treatment Panel for the following risk-cutoff thresholds for the [place] population. Performed By: #### L 500.2500, L503.6620, L100.0100 #### [facility] [address] [place], [address] Cholesterol in HDL [Mass/Vol] 47 mg/dL Normal [facility] Comment on above: Result Comment: Karen onal Cholesterol Education Program (NCEP) guidelines: <40 mg/dL: Low HDL-cholesterol (major risk factor for CHD) >= 60 mg/dL: High HDL-cholesterol (negative risk factor for CHD) HDL-cholesterol is affected by a number of factors, e.g. smoking, exercise, hormones, sex and age. Performed By: #### L 500.2500, L503.6620, L100.0100 #### [facility] [address] [place], [address] Cholesterol in LDL [Mass/Vol] 70 mg/dL Normal [facility] Comment on above: Result Comment: Bord pzvwlo=066-595 mg/dL Higher Cduv=051 mg/dL or greater Performed By: #### L 500.2500, L503.6620, L100.0100 #### [facility] [address] [place], [address] Cholesterol in VLDL [Mass/Vol] 31 mg/dL Normal 5-40 [facility] Comment on above: Performed By: #### L 500.2500, L503.6620, L100.0100 #### [facility] [address] [place], [address] Triglyceride [Mass/Vol] 153 mg/dL Normal [facility] Comment on above: Result Comment: The drugs N-Acetylcysteine and Metamizole may falsely depress this assay. Normal range: <150 mg/dL Borderline High: 150-199 mg/dL High: 200-499 mg/dL Very High: >500 mg/dL Performed By: #### L 500.2500, L503.6620, L100.0100 #### [facility] [address] [place], [address] Lymphocytes Auto (Unsp spec) [#/Vol]Ordered By: Marta Koehler on 03-03-2025 Lymphocytes (Bld) [#/Vol] 1.00 10*3/uL 0.83-4.5 1 [facility] Lymphocytes/100 WBC Auto (Un sp spec)Ordered By: Marta Koehler on 03-03-2025 Lymphocytes/100 WBC (Bld) 17.5 % Low 19-41 [facility] MCV (mean corpuscular volume ) determinationOrdered By: Marta Koehler on 03-03-2025 MCV (RBC) [Entitic vol] 91.4 fL 81-99 [facility] Mean corpuscular hemoglobin (MCH) determinationOrdered By: Marta Koehler on 03-03-2025 MCH (RBC) [Entitic mass] 29.7 pg 27.0-32.0 [facility] Mean corpuscular hemoglobin concentration (MCHC) determinationOrdered By: Marta Koehler on 03-03-2025 MCHC (RBC) [Mass/Vol] 32.5 g/dL 32-36 [facility] Mean platelet volume determi nationOrdered By: Marta Koehler on 03-03-2025 Platelet mean volume (Bld) [Entitic vol] 11.5 fL 6.2-12.0 [facility] Monocyte percentageOrdered B y: Marta Koehler on 03-03-2025 Monocytes/100 WBC (Bld) 8.8 % 0-10 [facility] Neutrophil percentageOrdered By: Marta Koehler on 03-03-2025 Neutrophils/100 WBC (Bld) 63.6 % 47-70 [facility] No Panel InformationOrdered By: Marta Koehler on 03-03-2025 Unsaturated Iron Binding Capacity 192 ug/dL Low 228-428 [facility] Nucleated red blood cell per centageOrdered By: Marta Koehler on 03-03-2025 Nucleated RBC/100 WBC (Bld) [Ratio] 0 % 0-5 [facility] PTH intactOrdered By: Marta silva on 03-03-2025 Parathyroid Hormone (Intact) 67 pg/mL High [facility] PTHINon 03-03-2025 PTH 67 pg/mL High [facility] Comment on above: Performed By: #### L 500.2500, L503.6620, L100.0100 #### [facility] [address] [place], [address] Platelet countOrdered By: Opal Koehler on 03-03-2025 Platelets (Bld) [#/Vol] 202 10*3/uL 150-450 [facility] Potassium (Unsp spec) [Mass/ Vol]Ordered By: Marta Koehler on 03-03-2025 Potassium [Moles/Vol] 4.6 mmol/L 3.3-5.1 [facility] RBC Auto (Bld) [#/Vol]Ordere d By: Marta Koehler on 03-03-2025 RBC (Bld) [#/Vol] 3.94 10*6/uL Low 4.2-5.4 [facility] Screening total cholesterol/ high density lipoprotein (HDL) cholesterol ratioOrdered By: Marta Koehler on 03-03-2025 Cholesterol.total/Cholest kedar in HDL [Mass ratio] 3.14 {ratio} [facility] Serum creatinine measurement (mass/volume)Ordered By: Marta Koehler on 03-03-2025 Creatinine [Mass/Vol] 1.65 mg/dL High 0.70-1.20 [facility] Serum globulin measurementOr dered By: Marta Koehler on 03-03-2025 Globulin (S) [Mass/Vol] 2.6 g/dL 2.2-4.2 [facility] Serum glucose measurement (m ass/volume)Ordered By: Marta Koehler on 03-03-2025 Glucose [Mass/Vol] 142 mg/dL High 70-99 [facility] Serum or plasma alanine stephens otransferase (ALT) measurementOrdered By: Marta Koehler on 03-03-2025 ALT [Catalytic activity/Vol] 13 U/L <35 [facility] Serum or plasma albumin noemi urement (mass/volume)Ordered By: Marta Koehler on 03-03-2025 Albumin [Mass/Vol] 3.7 g/dL 3.4-4.8 [facility] Serum or plasma albumin/glob ulin mass ratioOrdered By: Marta Koehler on 03-03-2025 Albumin/Globulin [Mass ratio] 1.4 {ratio} 0.9-2.4 [facility] Serum or plasma alkaline que sphatase measurementOrdered By: Marta Koehler on 03-03-2025 ALP [Catalytic activity/Vol] 65 U/L 35-104 [facility] Serum or plasma calcium noemi urement (mass/volume)Ordered By: Marta Koehler on 03-03-2025 Calcium [Mass/Vol] 9.3 mg/dL 7.6-11.0 [facility] Serum or plasma cholesterol in HDL measurement (mass/volume)Ordered By: Marta Koehler on 03-03-2025 Cholesterol in HDL [Mass/Vol] 47 mg/dL >40 [facility] Comment on above: National Cholesterol Education Program (NCEP) guidelines:<40 mg/dL: Low HDL-cholesterol (major risk factor for CHD)>= 60 mg/dL: High HDL-cholesterol (negative risk factor for CHD)HDL-cholesterol is affected by a number of factors, e.g. smoking, exercise, hormones, sex and age. Serum or plasma cholesterol measurement (mass/volume)Ordered By: Marta Koehler on 03-03-2025 Cholesterol [Mass/Vol] 147 mg/dL <201 [facility] Comment on above: Cholesterol level, D esirable <200 mg/dLBorderline high cholesterol 200-239 mg/dLHigh cholesterol >=240 mg/dLRecommendations of the NCEP Adult Treatment Panel for the following risk-cutoff thresholds for the [place] population. Serum or plasma ferritin consuelo surement (mass/volume)Ordered By: Marta Koehler on 03-03-2025 Ferritin [Mass/Vol] 26 ng/mL 22-378 [facility] Serum or plasma urea nitroge n measurement (mass/volume)Ordered By: Marta Koehler on 03-03-2025 Urea nitrogen [Mass/Vol] 20 mg/dL High 4-19 [facility] Sodium levelOrdered By: Marta Koehler on 03-03-2025 Sodium [Moles/Vol] 136 mmol/L 133-145 [facility] T4 Free Directon 03-03-2025 T4 FREE DIRECT 1.50 ng/dL High 0.76-1.46 [facility] Comment on above: Performed By: #### L 500.2500, L503.6620, L100.0100 #### [facility] [address] [place], [address] T4 freeOrdered By: Marta figueroa on 03-03-2025 Free T4 [Mass/Vol] 1.50 ng/dL High 0.76-1.46 [facility] TSH DL <= 0.005 mIU/L QnOrde red By: Marta Koehler on 03-03-2025 Thyroid Stimulating Hormone (TSH) 1.210 uIU/mL 0.300-4.20 0 [facility] Thyroid Stim Hormone (TSH)on 03-03-2025 TSH 1.210 uIU/mL Normal 0.300-4.20 0 [facility] Comment on above: Performed By: #### L 500.2500, L503.6620, L100.0100 #### [facility] [address] [place], [place], [id number] Total proteinOrdered By: Daniel Koehler on 03-03-2025 Protein [Mass/Vol] 6.3 g/dL 5.9-8.4 [facility] Triglycerides measurementOrd ered By: Marta Koehler on 03-03-2025 Triglyceride [Mass/Vol] 153 mg/dL <199 [facility] Comment on above: The drugs N-Acetylcy steine and Metamizole may falsely depress this assay. Normal range: <150 mg/dLBorderline High: 150-199 mg/dLHigh: 200-499 mg/dLVery High: >500 mg/dL Vitamin B12on 03-03-2025 Cobalamin (Vitamin B12) [Mass/Vol] 608 pg/mL Normal 180-914 [facility] Comment on above: Performed By: #### L 500.2500, L503.6620, L100.0100 #### [facility] [address] [place], [place], [address] Vitamin B12 ser/plasOrdered By: Marta Koehler on 03-03-2025 Cobalamin (Vitamin B12) [Mass/Vol] 608 pg/mL 180-914 [facility] Vitamin D, 25-hydroxyOrdered By: Marta Koehler on 03-03-2025 Vitamin D 25-Hydroxy 36.7 ng/mL 30-100 [facility] Comment on above: Vitamin D StatusDefi ciency: <20 ng/mL (50nmol/L)Insufficiency: 20-30 ng/mL (50-75 nmol/L)Sufficiency: 30-100 ng/mL (75-250 nmol/L)Toxicity: >100 ng/mL (>250 nmol/L) Vitamin D,25 Hydroxyon 03-03 Vitamin D 25-OH 36.7 ng/mL Normal 30-100 [facility] Comment on above: Result Comment: Anne min D Status Deficiency: <20 ng/mL (50nmol/L) Insufficiency: 20-30 ng/mL (50-75 nmol/L) Sufficiency: 30-100 ng/mL (75-250 nmol/L) Toxicity: >100 ng/mL (>250 nmol/L) Performed By: #### L 500.2500, L503.6620, L100.0100 #### [facility] [address] [place], [place], [id number] White blood cell (WBC) count Ordered By: Marta Koehler on 03-03-2025 WBC (Bld) [#/Vol] 5.7 10*3/uL 4.4-11.0 [facility] Amphetamines Screen method > 1000 ng/mL Ql (U)Ordered By: Duarte Espinal on 02-16-2025 Amphetamines Ql (U) Negative <1000 ng/mL [facility] Urine Barbiturates Screen Negative < 200 ng/mL [facility] Methadone, urineOrdered By: Duarte Espinal on 02-16-2025 Urine Methadone Screen Positive < 300 ng/mL [facility] Comment on above: If confirmation test ing is needed, a separate order will be required to send out testing to the reference laboratory. No Panel InformationOrdered By: Duarte Espinal on 02-16-2025 Urine Buprenorphine Qualitative Negative < 200 ng/mL [facility] Urine Oxycodone Screen Negative < 100 ng/mL [facility] Quantitative urine opiates m easurementOrdered By: Duarte Espinal on 02-16-2025 Opiates Ql (U) Negative < 300 ng/mL [facility] Urine Drug Screen (VISTA)on 02-16-2025 AMPHETAMINES Negative Normal <1000 ng/mL [facility] Comment on above: Order Comment: UNK Performed By: #### L 500.2500, L503.6620, L100.0100 #### [facility] [address] [place], [address] BARBITIURATES Negative Normal < 200 ng/mL [facility] Comment on above: Order Comment: UNK Performed By: #### L 500.2500, L503.6620, L100.0100 #### [facility] [address] [place], [address] BENZODIAZIPINE Negative Normal < 200 ng/mL [facility] Comment on above: Order Comment: UNK Performed By: #### L 500.2500, L503.6620, L100.0100 #### [facility] [address] [place], [address] BUP Ur Drug Scr Negative Normal < 200 ng/mL [facility] Comment on above: Order Comment: UNK Performed By: #### L 500.2500, L503.6620, L100.0100 #### [facility] [address] [place], [address] COCAINE Negative Normal < 300 ng/mL [facility] Comment on above: Order Comment: UNK Performed By: #### L 500.2500, L503.6620, L100.0100 #### [facility] [address] [place], [address] Fentanyl Negative Normal [facility] Comment on above: Order Comment: UNK Performed By: #### L 500.2500, L503.6620, L100.0100 #### [facility] [address] [place], [address] METHADONE Positive Normal < 300 ng/mL [facility] Comment on above: Order Comment: UNK Result Comment: If c onfirmation testing is needed, a separate order will be required to send out testing to the reference laboratory. Performed By: #### L 500.2500, L503.6620, L100.0100 #### [facility] [address] [place], [address] OPIATES Negative Normal < 300 ng/mL [facility] Comment on above: Order Comment: UNK Performed By: #### L 500.2500, L503.6620, L100.0100 #### [facility] [address] [place], [address] OXYCODONE Negative Normal < 100 ng/mL [facility] Comment on above: Order Comment: UNK Performed By: #### L 500.2500, L503.6620, L100.0100 #### [facility] [address] [place], [address] PCP Negative Normal < 25 ng/mL [facility] Comment on above: Order Comment: UNK Performed By: #### L 500.2500, L503.6620, L100.0100 #### [facility] [address] [place], [address] THC Negative Normal < 50 ng/mL [facility] Comment on above: Order Comment: UNK Performed By: #### L 500.2500, L503.6620, L100.0100 #### [facility] [address] [place], [address] Urine benzodiazepine levelOr dered By: Duarte Basali on 02-16-2025 Benzodiazepines Ql (U) Negative < 200 ng/mL [facility] Urine cocaine levelOrdered B y: Abelardoman Basali on 02-16-2025 Cocaine Ql (U) Negative < 300 ng/mL [facility] Urine qnonz-3-rrpgbgukwqqvnf abinol (THC) measurementOrdered By: Duarte Basali on 02-16-2025 Cannabinoids Screen Ql (U) Negative < 50 ng/mL [facility] Urine phencyclidine (PCP) de tectionOrdered By: Duarte Basali on 02-16-2025 Phencyclidine Ql (U) Negative < 25 ng/mL [facility] fentaNYL Screen Ql (U)Ordere d By: Duarte Basali on 02-16-2025 Urine Fentanyl Screen Negative [facility] Chest PA and Lateralon 01-[address] [facility] [address] [place] [address] Chest PA and Lateral MR#: [id number] Acct: [id number] Name: EVERTON BEATTY Rep #: [id number] : [id number] F [id number] From: Jorge Alberto Gutierrez MD PCP: Dr. Marta Koehler MD Status: REG CLI Study: Chest PA and Lateral Date of Exam: 01/11/25 Exam# [id number] Ordering Dr: Carlita Bowman NP [employer] APPRENTICE -Jason EXAM: XR Chest, 2 Views CLINICAL INDICATION: TECHNIQUE: Frontal and lateral views of the chest. COMPARISON: No relevant prior studies available. FINDINGS: LUNGS AND PLEURAL SPACES: Unremarkable. No consolidation. No pneumothorax. HEART: Unremarkable. No cardiomegaly. MEDIASTINUM: Unremarkable. Normal mediastinal contour. BONES/JOINTS: Unremarkable. No acute fracture. RAD/Chest PA and Lateral IMPRESSION: No acute cardiopulmonary process. [facility] CC: Carlita HINES NP-C [place]; Dr. Marta Koehler MD Inventory Control Specialist: Signed Normal [facility] Blood urea nitrogen (BUN)/cr eatinine ratioOrdered By: Pasha Vargas on 12-09-2024 Urea nitrogen/Creatinine [Mass ratio] 13.4 mg/mg 10-20 [facility] Carbon dioxide measurementOr dered By: Pasha Vargas on 12-09-2024 CO2 [Moles/Vol] 25.0 mmol/L 21.0-32.0 [facility] Chloride measurementOrdered By: Pasha Vargas on 12-09-2024 Chloride [Moles/Vol] 106 mmol/L 98-107 [facility] Estimated glomerular filtrat ion rate (GFR) AmericanOrdered By: Pasha Vargas on 12-09-2024 Estimated GFR (MDRD) Amer 32 mL/min Low >60 [facility] Comment on above: GFR Calc Glomerular filtration rate ( GFR) estimationOrdered By: Pasha Vargas on 12-09-2024 Estimated GFR (MDRD) Non-Af Amer 27 mL/min Low >60 [facility] Comment on above: Non- GFR Calc Glucose measurementOrdered B y: Pasha Vargas on 12-09-2024 Glucose [Mass/Vol] 170 mg/dL High 74-106 [facility] Comment on above: Fasting Glucose resu lt greater than or equal to 126 mg/dL suggests DIABETES MELLITUS per A.D.A. criteria. Phosphorus measurementOrdere d By: Pasha Vargas on 12-09-2024 Phosphorus Level 3.3 mg/dL 2.5-4.9 [facility] Potassium measurementOrdered By: Pasha Vargas on 12-09-2024 Potassium [Moles/Vol] 4.7 mmol/L 3.5-5.1 [facility] Protein+Creatinine Ratio,Uri neon 12-09-2024 PROT:CRE RATIO 832 mg/g CRE High 0-200 [facility] Comment on above: Performed By: #### L 500.4050, L100.0100 #### [facility] [address] [place], [address] Protein (U) [Mass/Vol] 67.0 mg/dL High <11.9 [facility] Comment on above: Performed By: #### L 500.4050, L100.0100 #### [facility] [address] [place], [address] UR CREAT 80.50 mg/dL Normal NO RANGE EST. [facility] Comment on above: Performed By: #### L 500.4050, L100.0100 #### [facility] [address] [place], [address] Protein/Creatinine (U) [Mass ratio]Ordered By: Pasha Vargas on 12-09-2024 Urine Protein/Creatinine Ratio 832 mg/g CRE High 0-200 [facility] Random urine protein measure mentOrdered By: Pasha Vargas on 12-09-2024 Protein (U) [Mass/Vol] 67.0 mg/dL High 0.0-11.8 [facility] Renal Profileon 12-09-2024 Albumin [Mass/Vol] 3.1 g/dL Low 3.2-5.0 [facility] Comment on above: Order Comment: PER P T-JUST THIS ORDERW/EGFR Performed By: #### L 500.2500, L503.6620, L100.0100 #### [facility] [address] [place], [address] BUN/CRE 13.4 RATIO Normal 10-20 [facility] Comment on above: Order Comment: PER P T-JUST THIS ORDERW/EGFR Performed By: #### L 500.2500, L503.6620, L100.0100 #### [facility] [address] [place], [address] CA,Total 9.2 mg/dL Normal 8.5-10.1 [facility] Comment on above: Order Comment: PER P T-JUST THIS ORDERW/EGFR Performed By: #### L 500.2500, L503.6620, L100.0100 #### [facility] [address] [place], [address] Chloride [Moles/Vol] 106 mmol/L Normal 98-107 [facility] Comment on above: Order Comment: PER P T-JUST THIS ORDERW/EGFR Performed By: #### L 500.2500, L503.6620, L100.0100 #### [facility] [address] [place], [address] CO2 [Moles/Vol] 25.0 mmol/L Normal 21.0-32.0 [facility] Comment on above: Order Comment: PER P T-JUST THIS ORDERW/EGFR Performed By: #### L 500.2500, L503.6620, L100.0100 #### [facility] [address] [place], [address] Creatinine [Mass/Vol] 1.94 mg/dL High 0.55-1.02 [facility] Comment on above: Order Comment: PER P T-JUST THIS ORDERW/EGFR Result Comment: The validity of the calculated GFR GFRAA in patients over 70 years has not been determined. Clinical correlation is essential. Performed By: #### L 500.2500, L503.6620, L100.0100 #### [facility] [address] [place], [address] EST GFR - AA 32 mL/min Low >60 [facility] Comment on above: Order Comment: PER P T-JUST THIS ORDERW/EGFR Result Comment: Afri can [place] GFR Calc Performed By: #### L 500.2500, L503.6620, L100.0100 #### [facility] [address] [place], [address] GFR/1.73 sq M.predicted among non-blacks MDRD (S/P/Bld) [Vol rate/Area] 27 mL/min/{1.73_m2} Low >60 [facility] Comment on above: Order Comment: PER P T-JUST THIS ORDERW/EGFR Result Comment: Non- GFR Calc Performed By: #### L 500.2500, L503.6620, L100.0100 #### [facility] [address] [place], [address] Glucose [Mass/Vol] 170 mg/dL High 74-106 [facility] Comment on above: Order Comment: PER P T-JUST THIS ORDERW/EGFR Result Comment: Fast ing Glucose result greater than or equal to 126 mg/dL suggests DIABETES MELLITUS per A.D.A. criteria. Performed By: #### L 500.2500, L503.6620, L100.0100 #### [facility] [address] [place], [address] Phosphate [Mass/Vol] 3.3 mg/dL Normal 2.5-4.9 [facility] Comment on above: Order Comment: PER P T-JUST THIS ORDERW/EGFR Performed By: #### L 500.2500, L503.6620, L100.0100 #### [facility] [address] [place], [address] Potassium [Moles/Vol] 4.7 mmol/L Normal 3.5-5.1 [facility] Comment on above: Order Comment: PER P T-JUST THIS ORDERW/EGFR Performed By: #### L 500.2500, L503.6620, L100.0100 #### [facility] [address] [place], [address] Sodium [Moles/Vol] 137 mmol/L Normal 136-145 [facility] Comment on above: Order Comment: PER P T-JUST THIS ORDERW/EGFR Performed By: #### L 500.2500, L503.6620, L100.0100 #### [facility] [address] [place], [address] Urea nitrogen [Mass/Vol] 26 mg/dL High 7-18 [facility] Comment on above: Order Comment: PER P T-JUST THIS ORDERW/EGFR Performed By: #### L 500.2500, L503.6620, L100.0100 #### [facility] [address] [place], [address] Serum or plasma albumin noemi urement (mass/volume)Ordered By: Pasha Vargas on 12-09-2024 Albumin [Mass/Vol] 3.1 g/dL Low 3.2-5.0 [facility] Serum or plasma calcium noemi urement (mass/volume)Ordered By: Pasha Vargas on 12-09-2024 Calcium [Mass/Vol] 9.2 mg/dL 8.5-10.1 [facility] Serum or plasma creatinine m easurement (mass/volume)Ordered By: Pasha Vargas on 12-09-2024 Creatinine [Mass/Vol] 1.94 mg/dL High 0.55-1.02 [facility] Comment on above: The validity of the calculated GFR & GFRAA in patients over 70 years has not been determined. Clinical correlation is essential. Serum or plasma urea nitroge n measurement (mass/volume)Ordered By: Pasha Vargas on 12-09-2024 Urea nitrogen [Mass/Vol] 26 mg/dL High 7-18 [facility] Sodium levelOrdered By: Aba Vargas on 12-09-2024 Sodium [Moles/Vol] 137 mmol/L 136-145 [facility] Urine creatinine measurement (mass/volume)Ordered By: Pasha Vargas on 12-09-2024 Creatinine (U) [Mass/Vol] 80.50 mg/dL NO RANGE EST. [facility] Gastroenterology Visit Repor ton 12-02-2024 Gastroenterology Visit Report [facility]enter[facility] [address] [place] [address] OFFICE VISIT Date of Service: 12/02/24 MR#: [id number] Acct: [id number] Name: EVERTON BEATTY Rep #: [id number] : 1945 Provider: ISRAEL mallory Age/Sex: 78/F Location: [facility] [place] Status: Signed Intake Vital Signs 09/16/24 14:49 12/01/24 08:51 12/02/24 13:05 Height 5 ft 3 in 5 ft 3 in 5 ft 3 in Weight: 230 lb 2 oz BMI 40.7 BP 161/63 H Respiration 18 Pulse 56 L Pulse Oximetry (%) 98 Oxygen Delivery Method room air Intake Visit Reasons: 8 WK FU Chief Complaint: vomit is mostly saliva, occasionally gets to the bile Unified Communications Engineer Required: No Is patient in pain?: No Allergies telithromycin (From Ketek) Allergy (Severe, Verified 12/02/24 13:06) Nausea/Vom/Diarrhea Penicillins (PCN) Allergy (Verified 12/02/24 13:06) Swelling Medications ???Medication ???Instructions ???Recorded ???Confirmed ???Type calcium carbonate 600 mg PO DAILY SUPPLEMENT 02/05/18 12/02/24 History coenzyme Q10 100 mg-vitamin E 10 1 ea PO DAILY Check with primary 02/05/18 12/02/24 History unit capsule doctor insulin glargine 100 unit/mL (3 35 units subcut 1000 diabetes 03/29/18 01/23/25 History mL) subcutaneous pen mometasone-formoterol HFA 200 2 puff IH DAILY ASTHMA 02/05/18 12/02/24 History mcg-5 mcg/actuation aerosol inhaler montelukast 10 mg tablet 10 mg PO DAILY Check with primary 02/05/18 12/02/24 History doctor multivitamin with iron 1 ea PO DAILY SUPPLEMENT 02/05/18 12/02/24 History pravastatin 20 mg tablet 20 mg PO QHS CHOLESTEROL 02/05/18 12/02/24 History sitagliptin phosphate 100 mg tablet 100 mg PO DAILY DIABETES 02/05/18 12/02/24 History albuterol sulfate 90 mcg/actuation 6.7 g IH Q4H PRN PRN Wheezing 12/08/19 12/02/24 History aerosol inhaler omeprazole 40 mg capsule,delayed 40 mg PO DAILY Check with primary 06/26/20 12/02/24 History release doctor acetaminophen 650 mg tablet 650 mg PO BID Check with primary 10/30/22 12/02/24 History doctor tramadol 50 mg tablet 50 mg PO BID Check with primary 10/30/22 12/02/24 History doctor docusate sodium 100 mg capsule 100 mg PO BID #20 caps 11/13/22 12/02/24 Rx (Colace) [id number]-oiendcso-bisveth See Rx Instructions PO .COMPLEX 03/07/23 12/02/24 Rx 36,000-114,000-180,000 unit #1,530 caps capsule,delay rel (Creon) amlodipine 10 mg tablet 10 mg PO QDAY 05/10/24 12/02/24 History empagliflozin 25 mg tablet 25 mg PO DAILY 05/10/24 12/02/24 History (Jardiance) levothyroxine 150 mcg tablet 150 mcg PO QDAY 05/10/24 12/02/24 History linaclotide 290 mcg capsule 290 mcg PO DAILY PRN constipation 05/10/24 12/02/24 History (Linzess) carvedilol 6.25 mg tablet 6.25 mg PO BID #180 tabs 05/14/24 12/02/24 Rx prochlorperazine maleate 10 mg 10 mg PO Q8H PRN nausea and 08/05/24 12/02/24 Rx tablet (Compazine) vomiting #90 tabs furosemide 40 mg tablet 40 mg PO DAILY PRN WATER PILL 09/27/24 12/02/24 History ondansetron HCl 4 mg tablet 4 mg PO Q8H PRN nausea and 09/27/24 12/02/24 Rx vomiting #90 tabs vortioxetine 10 mg tablet 20 mg PO DAILY Check with primary 09/27/24 12/02/24 History (Trintellix) doctor Have you fallen in the past year?: No Nurse's Note: Nothing has changed. Still have vomiting and constipation. Had cortisol infusions yesterday. 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 Weight loss, unintentional GERD (gastroesophageal reflux disease) BiPAP (biphasic positive airway pressure) dependence Renal cell carcinoma Rosacea Lipodermatosclerosis Fibromyalgia Cervical spondylosis Psoriatic arthritis Constipation IBS (irritable bowel syndrome) Asthma Sleep apnea Depression Arthritis History of back problems Surgical History History of nephrectomy, left History of tubal ligation History of cholecystectomy History of hysterectomy history bilateral cataract surgery Family History Grandfather Arthritis Father Diabetes Grandmother Heart disease Hypertension Social History household members: spouse Smoking Status: Former smoker alcohol intake: current alcohol intake frequency: holidays/spe (more content not included)... Normal [facility] CORTISOL SERUMon 12-01-2024 CORTISOL 34.60 ug/dL High 3.44-22.45 [facility] Comment on above: Order Comment: POST [id number] MIN POST MEDICATION [id number] Result Comment: Adul t (AM) 5.27 - 22.45 ug/dL Adult (PM) 3.44 - 16.76 ug/dL Performed By: #### L 500.3600, L3300.1200, L501.0900 #### [facility] [address] [place], [address] CORTISOL 27.20 ug/dL High 3.44-22.45 [facility] Comment on above: Order Comment: POST [id number] MIN DRAW POST [id number] Result Comment: Adul t (AM) 5.27 - 22.45 ug/dL Adult (PM) 3.44 - 16.76 ug/dL Performed By: #### L 500.3600, L3300.1200, L501.0900 #### [facility] [address] [place], [address] CORTISOL 17.90 ug/dL Normal 3.44-22.45 [facility] Comment on above: Order Comment: Order Date: 10/05/24 Order Info: [id number] - CMP Result Comment: Adul t (AM) 5.27 - 22.45 ug/dL Adult (PM) 3.44 - 16.76 ug/dL Performed By: #### L 500.4050, L100.0100 #### [facility] [address] [place], [address] Cortisol [Mass/Vol]Ordered B y: Irma Reynaga on 12-01-2024 Cortisol 34.60 ug/dL High 3.44-22.45 [facility] Comment on above: Adult (AM) 5.27 - 22 .45 ug/dL Adult (PM) 3.44 - 16.76 ug/dL Bilirubin Test strip Ql (U)O rdered By: Marta Koehler on 11-30-2024 Bilirubin Ql (U) Negative Negative [facility] Epithelial cells.squamous LM Ql (Urine sed)Ordered By: Marta Koehler on 11-30-2024 Epithelial cells.squamous LM.HPF (Urine sed) [#/Area] 0 /[HPF] 5-10 [facility] Glucose Ql (U)Ordered By: Opal Koehler on 11-30-2024 Glucose (U) [Mass/Vol] 1000 mg/dL High Normal [facility] Ketones Test strip Ql (U)Ord ered By: Marta Koehler on 11-30-2024 Ketones Ql (U) Negative Negative [facility] Microalb:Creat Ratio,Random URon 11-30-2024 MALB:CRE 553.6 mg/g CRE High <30 mg/g CRE [facility] Comment on above: Order Comment: Order Date: 11/24/24Order Info: [id number] - MIACRE Performed By: #### L 500.2500, L503.6620, L100.0100 #### [facility] [address] [place], [address] MICROALBUMIN,UR 470.0 mg/L Normal NO RANGE EST. [facility] Comment on above: Order Comment: Order Date: 11/24/24Order Info: [id number] - MIACRE Performed By: #### L 500.2500, L503.6620, L100.0100 #### [facility] [address] [place], [address] Microscopic analysis of urin e for red blood cells (RBC)Ordered By: Marta Koehler on 11-30-2024 Urine RBC 0-5 SEEN /hpf 0-5 [facility] Mucus LM Ql (Urine sed)Order ed By: Marta Koehler on 11-30-2024 Mucus Ql (Urine sed) 0 SEEN /hpf [facility] Nitrite Test strip Ql (U)Ord ered By: Marta Koehler on 11-30-2024 Nitrite Ql (U) Negative Negative [facility] Protein Test strip Ql (U)Ord ered By: Marta Koehler on 11-30-2024 Protein Ql (U) 100 mg/dl High Negative [facility] Protein+Creatinine Ratio,Uri neon 11-30-2024 PROT:CRE RATIO 776 mg/g CRE High 0-200 [facility] Comment on above: Order Comment: Order Date: 10/05/24 Order Info: [id number] - CMP Performed By: #### L 500.4050, L100.0100 #### [facility] [address] [place], [address] Protein (U) [Mass/Vol] 65.9 mg/dL High <11.9 [facility] Comment on above: Order Comment: Order Date: 10/05/24 Order Info: [id number] - CMP Performed By: #### L 500.4050, L100.0100 #### [facility] [address] [place], [address] UR CREAT 84.90 mg/dL Normal NO RANGE EST. [facility] Comment on above: Order Comment: Order Date: 10/05/24 Order Info: [id number] - CMP Performed By: #### L 500.4050, L100.0100 #### [facility] [address] [place], [address] Protein/Creatinine (U) [Mass ratio]Ordered By: Marta Koehler on 11-30-2024 Urine Protein/Creatinine Ratio 776 mg/g CRE High 0-200 [facility] Random urine microalbumin me asurementOrdered By: Marta Koehler on 11-30-2024 Urine Random Microalbumin 470.0 mg/L NO RANGE EST. [facility] Random urine protein measure mentOrdered By: Marta Koehler on 11-30-2024 Protein (U) [Mass/Vol] 65.9 mg/dL High 0.0-11.8 [facility] Urinalysis, Completeon 11-30 EPI,SQUAMOUS 0-5 SEEN Normal 5-10 [facility] Comment on above: Order Comment: Order Date: 10/05/24 Order Info: [id number] - CMP Performed By: #### L 500.4050, L100.0100 #### [facility] [address] [place], [address] RBC 0-5 SEEN Normal 0-5 [facility] Comment on above: Order Comment: Order Date: 10/05/24 Order Info: 0786-1 - CMP Performed By: #### L 500.4050, L100.0100 #### [facility] [address] [place], [address] BACTERIA 4+ /hpf Normal None Seen [facility] Comment on above: Order Comment: Order Date: 10/05/24 Order Info: 0786-1 - CMP Performed By: #### L 500.4050, L100.0100 #### [facility] [address] [place], [address] WBC 10-25 SEEN Normal 0-5 [facility] Comment on above: Order Comment: Order Date: 10/05/24 Order Info: 0786-1 - CMP Performed By: #### L 500.4050, L100.0100 #### [facility] [address] [place], [address] YEAST 2+ /hpf Normal None Seen [facility] Comment on above: Order Comment: Order Date: 10/05/24 Order Info: [id number] - CMP Performed By: #### L 500.4050, L100.0100 #### [facility] [address] [place], [address] Mucus Ql (Urine sed) 0 SEEN Normal [facility] Comment on above: Order Comment: Order Date: 10/05/24 Order Info: 0786-1 - CMP Performed By: #### L 500.4050, L100.0100 #### [facility] [address] [place], [address] Urine albumin/creatinine rat io for detection of microalbuminuriaOrdered By: Marta Koehler on 11-30-2024 Urine Microalbumin/Creatinine Ratio 553.6 mg/g CRE High <30 [facility] Urine blood detectionOrdered By: Marta Koehler on 11-30-2024 Urine Occult Blood 10 /ul High Negative [facility] Urine clarityOrdered By: Daniel Koehler on 11-30-2024 Clarity (U) Cloudy Clear [facility] Urine color determinationOrd ered By: Marta Koehler on 11-30-2024 Color (U) Yellow Yellow [facility] Urine creatinine measurement (mass/volume)Ordered By: Marta Koehler on 11-30-2024 Creatinine (U) [Mass/Vol] 84.90 mg/dL NO RANGE EST. [facility] Urine leukocyte esterase det ection by dipstickOrdered By: Marta Koehler on 11-30-2024 Leukocyte esterase Test strip Ql (U) 25 /ul High Negative [facility] Urine pHOrdered By: Marta srivastava on 11-30-2024 pH (U) 5.0 [pH] 5.0 - 8.0 [facility] Urine sediment bacteria coun t by microscopy (number/high power field)Ordered By: Marta Koehler on 11-30-2024 Bacteria LM.HPF (Urine sed) [#/Area] 4 /[HPF] None Seen [facility] Urine specific gravity measu rementOrdered By: Marta Koehler on 11-30-2024 Specific gravity (U) [Rel density] 1.020 1.002-1.03 0 [facility] Urobilinogen Ql (U)Ordered B y: Marta Koehler on 11-30-2024 Urine Urobilinogen Normal mg/dl Normal [facility] White blood cell countOrdere d By: Marta Koehler on 11-30-2024 Urine WBC 10-25 SEEN /hpf 0-5 [facility] Yeast LM.HPF (Urine sed) [#/ Area]Ordered By: Marta Koehler on 11-30-2024 Urine Yeast 2+ /hpf None Seen [facility] Absolute neutrophil countOrd ered By: Marta Koehler on 11-24-2024 Neutrophils (Bld) [#/Vol] 3.5 10*3/uL 2.0-7.7 [facility] Albumin to globulin ratioOrd ered By: Marta Koehler on 11-24-2024 Albumin/Globulin [Mass ratio] 1.0 {ratio} 0.9-2.4 [facility] Basophil percentageOrdered B y: Marta Koehler on 11-24-2024 Basophils/100 WBC (Bld) 1.7 % High 0-1 [facility] Bilirubin, totalOrdered By: Marta Koehler on 11-24-2024 Bilirubin [Mass/Vol] 0.40 mg/dL 0.20-1.00 [facility] Comment on above: For patients on eltr ombopag therapy, use of Dimension [place] TBIL is not recommended. Blood urea nitrogen (BUN)/cr eatinine ratioOrdered By: Marta Koehler on 11-24-2024 Urea nitrogen/Creatinine [Mass ratio] 14.5 mg/mg 10-20 [facility] CBC W/Diff, Automatedon 11-10 Absolute Lymph 1.10 X10 3/uL Normal 0.83-4.51 [facility] Comment on above: Order Comment: Order Date: 11/24/24Order Info: [id number]- - CBCD Performed By: #### L 500.3600, L3300.1200, L501.0900 #### [facility] [address] [place], [address] Absolute Neut 3.5 X10 3/uL Normal 2.0-7.7 [facility] Comment on above: Order Comment: Order Date: 11/24/24Order Info: 018- - CBCD Performed By: #### L 500.3600, L3300.1200, L501.0900 #### [facility] [address] [place], [address] Basophils/100 WBC (Bld) 1.7 % High 0-1 [facility] Comment on above: Order Comment: Order Date: 11/24/24Order Info: 018- - CBCD Performed By: #### L 500.3600, L3300.1200, L501.0900 #### [facility] [address] [place], [address] Eosinophils/100 WBC (Bld) 4.1 % Normal 0-5 [facility] Comment on above: Order Comment: Order Date: 11/24/24Order Info: [id number] - CBCD Performed By: #### L 500.3600, L3300.1200, L501.0900 #### [facility] [address] [place], [address] Erythrocyte distribution width (RBC) [Ratio] 14.0 % Normal 11.6-14.6 [facility] Comment on above: Order Comment: Order Date: 11/24/24Order Info: [id number] - CBCD Performed By: #### L 500.3600, L3300.1200, L501.0900 #### [facility] [address] [place], [address] Hematocrit (Bld) [Volume fraction] 36.4 % Low 37-47 [facility] Comment on above: Order Comment: Order Date: 11/24/24Order Info: [id number] - CBCD Performed By: #### L 500.3600, L3300.1200, L501.0900 #### [facility] [address] [place], [address] Hemoglobin (Bld) [Mass/Vol] 11.3 g/dL Low 12.0-15.0 [facility] Comment on above: Order Comment: Order Date: 11/24/24Order Info: [id number]- - CBCD Performed By: #### L 500.3600, L3300.1200, L501.0900 #### [facility] [address] [place], [address] IG% 0.400 Normal 0.0-0.9 [facility] Comment on above: Order Comment: Order Date: 11/24/24Order Info: [id number] - CBCD Result Comment: IG% - Immature Granulocytes (promyelocytes, myelocytes and metamyelocytes) > 1% indicates that a LEFT SHIFT is Present. Performed By: #### L 500.3600, L3300.1200, L501.0900 #### [facility] [address] [place], [address] Lymphocytes/100 WBC (Bld) 20.4 % Normal 19-41 [facility] Comment on above: Order Comment: Order Date: 11/24/24Order Info: [id number] - CBCD Performed By: #### L 500.3600, L3300.1200, L501.0900 #### [facility] [address] [place], [address] MCH (RBC) [Entitic mass] 27.8 pg Normal 27.0-32.0 [facility] Comment on above: Order Comment: Order Date: 11/24/24Order Info: [id number] - CBCD Performed By: #### L 500.3600, L3300.1200, L501.0900 #### [facility] [address] [place], [address] MCHC (RBC) [Mass/Vol] 31.0 g/dL Low 32-36 [facility] Comment on above: Order Comment: Order Date: 11/24/24Order Info: [id number] - CBCD Performed By: #### L 500.3600, L3300.1200, L501.0900 #### [facility] [address] [place], [address] MCV (RBC) [Entitic vol] 89.4 fL Normal 81-99 [facility] Comment on above: Order Comment: Order Date: 11/24/24Order Info: [id number] - CBCD Performed By: #### L 500.3600, L3300.1200, L501.0900 #### [facility] [address] [place], [address] Monocytes/100 WBC (Bld) 7.6 % Normal 0-10 [facility] Comment on above: Order Comment: Order Date: 11/24/24Order Info: [id number] - CBCD Performed By: #### L 500.3600, L3300.1200, L501.0900 #### [facility] [address] [place], [address] Neutrophils/100 WBC (Bld) 65.8 % Normal 47-70 [facility] Comment on above: Order Comment: Order Date: 11/24/24Order Info: [id number] - CBCD Performed By: #### L 500.3600, L3300.1200, L501.0900 #### [facility] [address] [place], [address] Nucleated RBC (Bld) [#/Vol] 0 10*3/uL Normal 0-5 [facility] Comment on above: Order Comment: Order Date: 11/24/24Order Info: [id number] - CBCD Performed By: #### L 500.3600, L3300.1200, L501.0900 #### [facility] [address] [place], [address] Platelet mean volume (Bld) [Entitic vol] 11.8 fL Normal 6.2-12.0 [facility] Comment on above: Order Comment: Order Date: 11/24/24Order Info: [id number] - CBCD Performed By: #### L 500.3600, L3300.1200, L501.0900 #### [facility] [address] [place], [address] Platelets (Bld) [#/Vol] 198 10*3/uL Normal 150-450 [facility] Comment on above: Order Comment: Order Date: 11/24/24Order Info: [id number] - CBCD Performed By: #### L 500.3600, L3300.1200, L501.0900 #### [facility] [address] [place], [address] RBC (Bld) [#/Vol] 4.07 10*6/uL Low 4.2-5.4 [facility] Comment on above: Order Comment: Order Date: 11/24/24Order Info: [id number] - CBCD Performed By: #### L 500.3600, L3300.1200, L501.0900 #### [facility] [address] [place], [address] RDW SD 45.4 fl High 35.1-43.9 [facility] Comment on above: Order Comment: Order Date: 11/24/24Order Info: [id number] - CBCD Performed By: #### L 500.3600, L3300.1200, L501.0900 #### [facility] [address] [place], [address] WBC (Bld) [#/Vol] 5.4 10*3/uL Normal 4.4-11.0 [facility] Comment on above: Order Comment: Order Date: 11/24/24Order Info: [id number] - CBCD Performed By: #### L 500.3600, L3300.1200, L501.0900 #### [facility] [address] [place], [address] Carbon dioxide measurementOr dered By: Marta Koehler on 11-24-2024 CO2 [Moles/Vol] 23.0 mmol/L 21.0-32.0 [facility] Chloride measurementOrdered By: Marta Koehler on 11-24-2024 Chloride [Moles/Vol] 107 mmol/L 98-107 [facility] Comprehensive Metabolic Prof ilon 11-24-2024 Albumin [Mass/Vol] 3.3 g/dL Normal 3.2-5.0 [facility] Comment on above: Order Comment: Order Date: 11/24/24Order Info: [id number] - CMPOrder Info: [id number] - LIPIDOrder Info: [id number] - TSHOrder Info: [id number] - T4F Performed By: #### L 500.3600, L3300.1200, L501.0900 #### [facility] [address] [place], [address] Albumin/Globulin [Mass ratio] 1.0 {ratio} Normal 0.9-2.4 [facility] Comment on above: Order Comment: Order Date: 11/24/24Order Info: [id number] - CMPOrder Info: [id number] - LIPIDOrder Info: [id number] - TSHOrder Info: [id number] - T4F Performed By: #### L 500.3600, L3300.1200, L501.0900 #### [facility] [address] [place], [address] ALK P 68 U/L Normal 45-117 [facility] Comment on above: Order Comment: Order Date: 11/24/24Order Info: [id number] - CMPOrder Info: [id number] - LIPIDOrder Info: [id number] - TSHOrder Info: [id number] - T4F Performed By: #### L 500.3600, L3300.1200, L501.0900 #### [facility] [address] [place], [place], [address] ALT [Catalytic activity/Vol] 16 U/L Normal 13-56 [facility] Comment on above: Order Comment: Order Date: 11/24/24Order Info: [id number] - CMPOrder Info: [id number] - LIPIDOrder Info: 6-3 - TSHOrder Info: [id number] - T4F Performed By: #### L 500.3600, L3300.1200, L501.0900 #### [facility] [address] [facility] [place], [place], [address] AST [Catalytic activity/Vol] 15 U/L Normal 15-37 [facility] Comment on above: Order Comment: Order Date: 11/24/24Order Info: [id number] - CMPOrder Info: [id number] - LIPIDOrder Info: 6-3 - TSHOrder Info: [id number] - T4F Performed By: #### L 500.3600, L3300.1200, L501.0900 #### [facility] [address] [place], [place], [address] Bilirubin [Mass/Vol] 0.40 mg/dL Normal 0.20-1.00 [facility] Comment on above: Order Comment: Order Date: 11/24/24Order Info: [id number] - CMPOrder Info: [id number] - LIPIDOrder Info: [id number] - TSHOrder Info: [id number] - T4F Result Comment: For patients on eltrombopag therapy, use of Dimension [place] TBIL is not recommended. Performed By: #### L 500.3600, L3300.1200, L501.0900 #### [facility] [address] [place], [address] BUN/CRE 14.5 RATIO Normal 10-20 [facility] Comment on above: Order Comment: Order Date: 11/24/24Order Info: [id number] - CMPOrder Info: [id number] - LIPIDOrder Info: [id number] - TSHOrder Info: [id number] - T4F Performed By: #### L 500.3600, L3300.1200, L501.0900 #### [facility] [address] [place], [address] CA,Total 9.2 mg/dL Normal 8.5-10.1 [facility] Comment on above: Order Comment: Order Date: 11/24/24Order Info: [id number] - CMPOrder Info: [id number] - LIPIDOrder Info: 6-3 - TSHOrder Info: [id number] - T4F Performed By: #### L 500.3600, L3300.1200, L501.0900 #### [facility] [address] [place], [address] Chloride [Moles/Vol] 107 mmol/L Normal 98-107 [facility] Comment on above: Order Comment: Order Date: 11/24/24Order Info: [id number] - CMPOrder Info: [id number] - LIPIDOrder Info: [id number] - TSHOrder Info: [id number] - T4F Performed By: #### L 500.3600, L3300.1200, L501.0900 #### [facility] [address] [place], [address] CO2 [Moles/Vol] 23.0 mmol/L Normal 21.0-32.0 [facility] Comment on above: Order Comment: Order Date: 11/24/24Order Info: [id number] - CMPOrder Info: [id number] - LIPIDOrder Info: [id number] - TSHOrder Info: [id number] - T4F Performed By: #### L 500.3600, L3300.1200, L501.0900 #### [facility] [address] [place], [address] Creatinine [Mass/Vol] 2.14 mg/dL High 0.55-1.02 [facility] Comment on above: Order Comment: Order Date: 11/24/24Order Info: [id number] - CMPOrder Info: [id number] - LIPIDOrder Info: [id number] - TSHOrder Info: [id number] - T4F Result Comment: The validity of the calculated GFR GFRAA in patients over 70 years has not been determined. Clinical correlation is essential. Performed By: #### L 500.3600, L3300.1200, L501.0900 #### [facility] [address] [place], [address] EST GFR - AA 29 mL/min Low >60 [facility] Comment on above: Order Comment: Order Date: 11/24/24Order Info: [id number] - CMPOrder Info: [id number] - LIPIDOrder Info: [id number] - TSHOrder Info: [id number] - T4F Result Comment: Afri can [place] GFR Calc Performed By: #### L 500.3600, L3300.1200, L501.0900 #### [facility] [address] [place], [address] GAP 8 Normal 5-15 [facility] Comment on above: Order Comment: Order Date: 11/24/24Order Info: [id number] - CMPOrder Info: [id number] - LIPIDOrder Info: [id number] - TSHOrder Info: 3024-7 - T4F Performed By: #### L 500.3600, L3300.1200, L501.0900 #### [facility] [address] [place], [address] GFR/1.73 sq M.predicted among non-blacks MDRD (S/P/Bld) [Vol rate/Area] 24 mL/min/{1.73_m2} Low >60 [facility] Comment on above: Order Comment: Order Date: 11/24/24Order Info: [id number] - CMPOrder Info: [id number] - LIPIDOrder Info: 3 - TSHOrder Info: 7 - T4F Result Comment: Non- GFR Calc Performed By: #### L 500.3600, L3300.1200, L501.0900 #### [facility] [address] [place], [address] Globulin (S) [Mass/Vol] 3.2 g/dL Normal 2.2-4.2 [facility] Comment on above: Order Comment: Order Date: 11/24/24Order Info: [id number]- - CMPOrder Info: [id number] - LIPIDOrder Info: 3 - TSHOrder Info: [id number] - T4F Performed By: #### L 500.3600, L3300.1200, L501.0900 #### [facility] [address] [place], [address] Glucose [Mass/Vol] 127 mg/dL High 74-106 [facility] Comment on above: Order Comment: Order Date: 11/24/24Order Info: [id number]- - CMPOrder Info: [id number] - LIPIDOrder Info: 3 - TSHOrder Info: 7 - T4F Result Comment: Fast ing Glucose result greater than or equal to 126 mg/dL suggests DIABETES MELLITUS per A.D.A. criteria. Performed By: #### L 500.3600, L3300.1200, L501.0900 #### [facility] [address] [place], [address] Potassium [Moles/Vol] 4.8 mmol/L Normal 3.5-5.1 [facility] Comment on above: Order Comment: Order Date: 11/24/24Order Info: [id number] - CMPOrder Info: [id number] - LIPIDOrder Info: [id number] - TSHOrder Info: 3024-7 - T4F Performed By: #### L 500.3600, L3300.1200, L501.0900 #### [facility] [address] [place], [address] Sodium [Moles/Vol] 138 mmol/L Normal 136-145 [facility] Comment on above: Order Comment: Order Date: 11/24/24Order Info: [id number] - CMPOrder Info: [id number] - LIPIDOrder Info: [id number] - TSHOrder Info: [id number] - T4F Performed By: #### L 500.3600, L3300.1200, L501.0900 #### [facility] [address] [place], [address] T PROT 6.5 g/dL Normal 6.4-8.2 [facility] Comment on above: Order Comment: Order Date: 11/24/24Order Info: [id number] - CMPOrder Info: [id number] - LIPIDOrder Info: [id number] - TSHOrder Info: [id number] - T4F Performed By: #### L 500.3600, L3300.1200, L501.0900 #### [facility] [address] [place], [address] Urea nitrogen [Mass/Vol] 31 mg/dL High 7-18 [facility] Comment on above: Order Comment: Order Date: 11/24/24Order Info: [id number] - CMPOrder Info: [id number] - LIPIDOrder Info: [id number] - TSHOrder Info: [id number] - T4F Performed By: #### L 500.3600, L3300.1200, L501.0900 #### [facility] [address] [place], [address] Direct serum free thyroxine (FT4) measurementOrdered By: Marta Koehler on 11-24-2024 Free T4 [Mass/Vol] 1.22 ng/dL 0.76-1.46 [facility] Eosinophil percentageOrdered By: Marta Koehler on 11-24-2024 Eosinophils/100 WBC (Bld) 4.1 % 0-5 [facility] Erythrocyte distribution wid th ratioOrdered By: Marta Koehler on 11-24-2024 Erythrocyte distribution width (RBC) [Ratio] 14.0 % 11.6-14.6 [facility] Erythrocyte distribution wid th standard deviationOrdered By: Marta Koehler on 11-24-2024 Erythrocyte distribution width (RBC) [Entitic vol] 45.4 fL High 35.1-43.9 [facility] Estimated glomerular filtrat ion rate (GFR) AmericanOrdered By: Marta Koehler on 11-24-2024 Estimated GFR (MDRD) Amer 29 mL/min Low >60 [facility] Comment on above: GFR Calc Glomerular filtration rate ( GFR) estimationOrdered By: Marta Koehler on 11-24-2024 Estimated GFR (MDRD) Non-Af Amer 24 mL/min Low >60 [facility] Comment on above: Non- GFR Calc Glucose measurementOrdered B y: Marta Koehler on 11-24-2024 Glucose [Mass/Vol] 127 mg/dL High 74-106 [facility] Comment on above: Fasting Glucose resu lt greater than or equal to 126 mg/dL suggests DIABETES MELLITUS per A.D.A. criteria. Hematocrit Auto (Bld) [Volum e fraction]Ordered By: Marta Koehler on 11-24-2024 Hematocrit (Bld) [Volume fraction] 36.4 % Low 37-47 [facility] Hemoglobin A1con 11-24-2024 HbA1c (Bld) [Mass fraction] 6.9 % High 3.8-5.6 [facility] Comment on above: Order Comment: Order Date: 11/24/24Order Info: [id number] - A1C Result Comment: Norm al < 5.7 % Prediabetic 5.7 - 6.4 % Diabetic >or= 6.5 % Please note range changes. Performed By: #### L 500.3600, L3300.1200, L501.0900 #### [facility] [place], [address] Hemoglobin A1c percentageOrd ered By: Marta Koehler on 11-24-2024 HbA1c (Bld) [Mass fraction] 6.9 % High 3.8-5.6 [facility] Comment on above: Normal < 5.7 % Predi abetic 5.7 - 6.4 % Diabetic >or= 6.5 % Please note range changes. Hemoglobin measurementOrdere d By: Marta Koehler on 11-24-2024 Hemoglobin (Bld) [Mass/Vol] 11.3 g/dL Low 12.0-15.0 [facility] High density lipoprotein (HD L) measurementOrdered By: Marta Koehler on 11-24-2024 Cholesterol in HDL [Mass/Vol] 53 mg/dL >40 [facility] Comment on above: The drugs N-Acetylcy steine and Metamizole may falsely depress this assay. Reference Range HDL <40 mg/dL Low HDL Cholesterol HDL >or= 60 mg/dL High HDL Cholesterol Immature granulocytes/100 WB C Auto (Bld)Ordered By: Marta Koehler on 11-24-2024 Immature granulocytes/100 WBC (Bld) 0.400 % 0.0-0.9 [facility] Comment on above: IG% - Immature Granu locytes (promyelocytes, myelocytes and metamyelocytes) > 1% indicates that a LEFT SHIFT is Present. Intact parathyroid hormone ( iPTH) measurementOrdered By: Marta Koehler on 11-24-2024 Parathyroid Hormone (Intact) 110.0 pg/mL High 18.4-80.1 [facility] - Chemistry and C hemistry - challengeOrdered By: Marta Koehler on 11-24-2024 AST [Catalytic activity/Vol] 15 U/L 15-37 [facility] Lipid Profileon 11-24-2024 Cholesterol [Mass/Vol] 143 mg/dL Normal 200 [facility] Comment on above: Order Comment: Order Date: 11/24/24Order Info: [id number] - CMPOrder Info: [id number] - LIPIDOrder Info: [id number] - TSHOrder Info: [id number] - T4F Result Comment: <200 mg/dL Desirable 200-240 mg/dL Borderline >240 mg/dL High Risk Performed By: #### L 500.3600, L3300.1200, L501.0900 #### [facility] [address] [place], [address] Cholesterol in HDL [Mass/Vol] 53 mg/dL Normal [facility] Comment on above: Order Comment: Order Date: 11/24/24Order Info: [id number] - CMPOrder Info: [id number] - LIPIDOrder Info: [id number] - TSHOrder Info: [id number] - T4F Result Comment: The drugs N-Acetylcysteine and Metamizole may falsely depress this assay. Reference Range HDL <40 mg/dL Low HDL Cholesterol HDL >or= 60 mg/dL High HDL Cholesterol Performed By: #### L 500.3600, L3300.1200, L501.0900 #### [facility] [address] [place], [address] Cholesterol in LDL [Mass/Vol] 64 mg/dL Normal 0-130 [facility] Comment on above: Order Comment: Order Date: 11/24/24Order Info: [id number] - CMPOrder Info: [id number] - LIPIDOrder Info: [id number] - TSHOrder Info: 3024-7 - T4F Performed By: #### L 500.3600, L3300.1200, L501.0900 #### [facility] [address] [place], [address] Cholesterol in VLDL [Mass/Vol] 26 mg/dL Normal 5-40 [facility] Comment on above: Order Comment: Order Date: 11/24/24Order Info: [id number] - CMPOrder Info: [id number] - LIPIDOrder Info: [id number] - TSHOrder Info: [id number] - T4F Performed By: #### L 500.3600, L3300.1200, L501.0900 #### [facility] [address] [place], [address] Triglyceride [Mass/Vol] 128 mg/dL Normal [facility] Comment on above: Order Comment: Order Date: 11/24/24Order Info: [id number] - CMPOrder Info: [id number] - LIPIDOrder Info: [id number] - TSHOrder Info: [id number] - T4F Result Comment: The drugs N-Acetylcysteine and Metamizole may falsely depress this assay. Serum Triglycerides Reference Interval Normal <150 mg/dL Borderline high 150 - 199 mg/dL High 200 - 499 mg/dL Very High > or = 500 mg/dL Performed By: #### L 500.3600, L3300.1200, L501.0900 #### [facility] [place], [address] Low density lipoprotein (LDL ) cholesterol measurementOrdered By: Marta Koehler on 11-24-2024 Cholesterol in LDL [Mass/Vol] 64 mg/dL 0-130 [facility] Lymphocytes Auto (Unsp spec) [#/Vol]Ordered By: Marta Koehler on 11-24-2024 Lymphocytes (Bld) [#/Vol] 1.10 10*3/uL 0.83-4.5 1 [facility] Lymphocytes/100 WBC Auto (Un sp spec)Ordered By: Marta Koehler on 11-24-2024 Lymphocytes/100 WBC (Bld) 20.4 % 19-41 [facility] MCV (mean corpuscular volume ) determinationOrdered By: Marta Koehler on 11-24-2024 MCV (RBC) [Entitic vol] 89.4 fL 81-99 [facility] Mean corpuscular hemoglobin (MCH) determinationOrdered By: Marta Koehler on 11-24-2024 MCH (RBC) [Entitic mass] 27.8 pg 27.0-32.0 [facility] Mean corpuscular hemoglobin concentration (MCHC) determinationOrdered By: Marta Koehler on 11-24-2024 MCHC (RBC) [Mass/Vol] 31.0 g/dL Low 32-36 [facility] Mean platelet volume determi nationOrdered By: Marta Koehler on 11-24-2024 Platelet mean volume (Bld) [Entitic vol] 11.8 fL 6.2-12.0 [facility] Monocyte percentageOrdered B y: Marta Koehler on 11-24-2024 Monocytes/100 WBC (Bld) 7.6 % 0-10 [facility] Neutrophil percentageOrdered By: Marta Koehler on 11-24-2024 Neutrophils/100 WBC (Bld) 65.8 % 47-70 [facility] Nucleated red blood cell per centageOrdered By: Marta Koehler on 11-24-2024 Nucleated RBC/100 WBC (Bld) [Ratio] 0 % 0-5 [facility] PTHINon 11-24-2024 PTH 110.0 pg/mL High 18.4-80.1 [facility] Comment on above: Order Comment: Order Date: 11/24/24Order Info: [id number] - PTHIN Performed By: #### L 500.3600, L3300.1200, L501.0900 #### [facility] [address] [place], [address] Platelet countOrdered By: Opal Koehler on 11-24-2024 Platelets (Bld) [#/Vol] 198 10*3/uL 150-450 [facility] Potassium measurementOrdered By: Marta Koehler on 11-24-2024 Potassium [Moles/Vol] 4.8 mmol/L 3.5-5.1 [facility] RBC Auto (Bld) [#/Vol]Ordere d By: Marta Koehler on 11-24-2024 RBC (Bld) [#/Vol] 4.07 10*6/uL Low 4.2-5.4 [facility] Serum anion gap measurementO rdered By: Marta Koehler on 11-24-2024 Anion gap [Moles/Vol] 8 mmol/L 5-15 [facility] Serum globulin measurementOr dered By: Marta Koehler on 11-24-2024 Globulin (S) [Mass/Vol] 3.2 g/dL 2.2-4.2 [facility] Serum or plasma alanine stephens otransferase (ALT) measurementOrdered By: Marta Koehler on 11-24-2024 ALT [Catalytic activity/Vol] 16 U/L 13-56 [facility] Serum or plasma albumin noemi urement (mass/volume)Ordered By: Marta Koehler on 11-24-2024 Albumin [Mass/Vol] 3.3 g/dL 3.2-5.0 [facility] Serum or plasma alkaline que sphatase measurementOrdered By: Marta Koehler on 11-24-2024 ALP [Catalytic activity/Vol] 68 U/L 45-117 [facility] Serum or plasma calcium noemi urement (mass/volume)Ordered By: Marta Koehler on 11-24-2024 Calcium [Mass/Vol] 9.2 mg/dL 8.5-10.1 [facility] Serum or plasma cholesterol measurement (mass/volume)Ordered By: Marta Koehler on 11-24-2024 Cholesterol [Mass/Vol] 143 mg/dL <200 [facility] Comment on above: <200 mg/dL Desirable 200-240 mg/dL Borderline >240 mg/dL High Risk Serum or plasma creatinine m easurement (mass/volume)Ordered By: Marta Koehler on 11-24-2024 Creatinine [Mass/Vol] 2.14 mg/dL High 0.55-1.02 [facility] Comment on above: The validity of the calculated GFR & GFRAA in patients over 70 years has not been determined. Clinical correlation is essential. Serum or plasma urea nitroge n measurement (mass/volume)Ordered By: Marta Koehler on 11-24-2024 Urea nitrogen [Mass/Vol] 31 mg/dL High 7-18 [facility] Sodium levelOrdered By: Marta Koehler on 11-24-2024 Sodium [Moles/Vol] 138 mmol/L 136-145 [facility] T4 Free Directon 11-24-2024 T4 FREE DIRECT 1.22 ng/dL Normal 0.76-1.46 [facility] Comment on above: Order Comment: Order Date: 11/24/24Order Info: [id number] - CMPOrder Info: [id number] - LIPIDOrder Info: [id number] - TSHOrder Info: [id number] - T4F Performed By: #### L 500.3600, L3300.1200, L501.0900 #### [facility] [address] [place], [address] TSH QnOrdered By: Marta guevara on 11-24-2024 Thyroid Stimulating Hormone (TSH) 1.380 uIU/mL 0.358-3.74 0 [facility] Thyroid Stim Hormone (TSH)on 11-24-2024 TSH 1.380 uIU/mL Normal 0.358-3.74 0 [facility] Comment on above: Order Comment: Order Date: 11/24/24Order Info: [id number] - CMPOrder Info: [id number] - LIPIDOrder Info: [id number] - TSHOrder Info: [id number] - T4F Performed By: #### L 500.3600, L3300.1200, L501.0900 #### [facility] [address] [place], [place], [address] Total proteinOrdered By: Daniel Koehler on 11-24-2024 Protein [Mass/Vol] 6.5 g/dL 6.4-8.2 [facility] Triglycerides measurementOrd ered By: Marta Koehler on 11-24-2024 Triglyceride [Mass/Vol] 128 mg/dL <199 [facility] Comment on above: The drugs N-Acetylcy steine and Metamizole may falsely depress this assay.Serum Triglycerides Reference Interval Normal <150 mg/dL Borderline high 150 - 199 mg/dL High 200 - 499 mg/dL Very High > or = 500 mg/dL Very low density lipoprotein (VLDL) cholesterol measurementOrdered By: Marta Koehler on 11-24-2024 VLDL Cholesterol 26 mg/dL 5-40 [facility] White blood cell (WBC) count Ordered By: Marta Koehler on 11-24-2024 WBC (Bld) [#/Vol] 5.4 10*3/uL 4.4-11.0 [facility] Adrenocorticotropic Hormoneo n 10-27-2024 ACTH 12.5 pg/mL Normal 7.2-63.3 [facility] Comment on above: Order Comment: Order Date: 10/05/24 Order Info: [id number] - CMP Result Comment: ACTH reference interval for samples collected between 7 and 10 AM. Performed at: [address] [id number] Seo Specialist: Rolo Castle PhD, Phone: [phone] Performed By: #### L 500.4050, L100.0100 #### [facility] [address] [place], [place], [address] Adrenocorticotropic hormone (ACTH) measurementOrdered By: Irma Reynaga on 10-25-2024 Adrenocorticotropic Hormone 12.5 pg/mL 7.2-63.3 [facility] Comment on above: ACTH reference inter laya for samples collected between 7 and10 AM.Performed at: [facility] [address] [id number] Director: Rolo Castle PhD, Phone: [phone] Upper GI Dual Contraston Upper GI Dual Contrast [facility] Imaging Services [address] [place], [place] [address] Upper GI Dual Contrast MR#: [id number] Acct: [id number] Name: EVERTON BEATTY Rep #: [id number] : 1945 F 78 From: Kosta galo MD PCP: Dr. 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 Weight loss. FLUOROSCOPY TIME (if supplied): (1:31) minutes/seconds 34 mGy. TECHNIQUE: Radiographic and fluoroscopic images of the distal esophagus, stomach, and proximal small intestine were obtained following the oral ingestion of barium. COMPARISON: None. FINDINGS: There is no evidence for organomegaly, abnormal calcifications, or abnormal bowel gas pattern. The psoas margins and flank stripes are normal. Degenerative changes of the thoracic spine. The mucosa of the esophagus, stomach and duodenum is normal in appearance without evidence for stricture, ulceration, mass or diverticulum. Small hiatal hernia with gastroesophageal reflux. RAD/Upper GI Dual Contrast IMPRESSION: Small hiatal hernia with gastroesophageal reflux. Electronically Signed: Kosta England MD at 15:01 EST , CC: ISRAEL Reynaga; Dr. Marta Koehler MD Inventory Control Specialist: Signed Normal [facility] Absolute neutrophil countOrd ered By: Marta Koehler on 10-05-2024 Neutrophils (Bld) [#/Vol] 4.4 10*3/uL 2.0-7.7 [facility] Albumin to globulin ratioOrd ered By: Marta Koehler on 10-05-2024 Albumin/Globulin [Mass ratio] 1.0 {ratio} 0.9-2.4 [facility] Basophil percentageOrdered B y: Marta Koehler on 10-05-2024 Basophils/100 WBC (Bld) 1.3 % High 0-1 [facility] Bilirubin, totalOrdered By: Marta Koehler on 10-05-2024 Bilirubin [Mass/Vol] 0.40 mg/dL 0.20-1.00 [facility] Comment on above: For patients on eltr ombopag therapy, use of Dimension [place] TBIL is not recommended. Blood urea nitrogen (BUN)/cr eatinine ratioOrdered By: Marta Koehler on 10-05-2024 Urea nitrogen/Creatinine [Mass ratio] 13.8 mg/mg 10-20 [facility] CBC W/Diff, Automatedon 09-11 Absolute Lymph 1.08 X10 3/uL Normal 0.83-4.51 [facility] Comment on above: Order Comment: Order Date: 10/05/24 Order Info: 0184-1 - CBCD Performed By: #### L 500.4050, L100.0100 #### [facility] [address] [place], [address] Absolute Neut 4.4 X10 3/uL Normal 2.0-7.7 [facility] Comment on above: Order Comment: Order Date: 10/05/24 Order Info: 0184-1 - CBCD Performed By: #### L 500.4050, L100.0100 #### [facility] [address] [place], [address] Basophils/100 WBC (Bld) 1.3 % High 0-1 [facility] Comment on above: Order Comment: Order Date: 10/05/24 Order Info: 0184-1 - CBCD Performed By: #### L 500.4050, L100.0100 #### [facility] [address] [place], [address] Eosinophils/100 WBC (Bld) 3.5 % Normal 0-5 [facility] Comment on above: Order Comment: Order Date: 10/05/24 Order Info: 0184-1 - CBCD Performed By: #### L 500.4050, L100.0100 #### [facility] [address] [place], [address] Erythrocyte distribution width (RBC) [Ratio] 12.5 % Normal 11.6-14.6 [facility] Comment on above: Order Comment: Order Date: 10/05/24 Order Info: 0184-1 - CBCD Performed By: #### L 500.4050, L100.0100 #### [facility] [address] [place], [address] Hematocrit (Bld) [Volume fraction] 35.5 % Low 37-47 [facility] Comment on above: Order Comment: Order Date: 10/05/24 Order Info: 0184-1 - CBCD Performed By: #### L 500.4050, L100.0100 #### [facility] [address] [place], [address] Hemoglobin (Bld) [Mass/Vol] 11.4 g/dL Low 12.0-15.0 [facility] Comment on above: Order Comment: Order Date: 10/05/24 Order Info: 0184-1 - CBCD Performed By: #### L 500.4050, L100.0100 #### [facility] [address] [place], [address] IG% 0.300 Normal 0.0-0.9 [facility] Comment on above: Order Comment: Order Date: 10/05/24 Order Info: 018- - CBCD Result Comment: IG% - Immature Granulocytes (promyelocytes, myelocytes and metamyelocytes) > 1% indicates that a LEFT SHIFT is Present. Performed By: #### L 500.4050, L100.0100 #### [facility] [address] [place], [address] Lymphocytes/100 WBC (Bld) 17.1 % Low 19-41 [facility] Comment on above: Order Comment: Order Date: 10/05/24 Order Info: 018- - CBCD Performed By: #### L 500.4050, L100.0100 #### [facility] [address] [place], [address] MCH (RBC) [Entitic mass] 28.4 pg Normal 27.0-32.0 [facility] Comment on above: Order Comment: Order Date: 10/05/24 Order Info: 018- - CBCD Performed By: #### L 500.4050, L100.0100 #### [facility] [address] [place], [address] MCHC (RBC) [Mass/Vol] 32.1 g/dL Normal 32-36 [facility] Comment on above: Order Comment: Order Date: 10/05/24 Order Info: 018- - CBCD Performed By: #### L 500.4050, L100.0100 #### [facility] [address] [place], [address] MCV (RBC) [Entitic vol] 88.5 fL Normal 81-99 [facility] Comment on above: Order Comment: Order Date: 10/05/24 Order Info: 018- - CBCD Performed By: #### L 500.4050, L100.0100 #### [facility] [address] [place], [address] Monocytes/100 WBC (Bld) 8.6 % Normal 0-10 [facility] Comment on above: Order Comment: Order Date: 10/05/24 Order Info: 0184-1 - CBCD Performed By: #### L 500.4050, L100.0100 #### [facility] [address] [place], [address] Neutrophils/100 WBC (Bld) 69.2 % Normal 47-70 [facility] Comment on above: Order Comment: Order Date: 10/05/24 Order Info: 0184-1 - CBCD Performed By: #### L 500.4050, L100.0100 #### [facility] [address] [place], [address] Nucleated RBC (Bld) [#/Vol] 0 10*3/uL Normal 0-5 [facility] Comment on above: Order Comment: Order Date: 10/05/24 Order Info: 0184-1 - CBCD Performed By: #### L 500.4050, L100.0100 #### [facility] [address] [place], [address] Platelet mean volume (Bld) [Entitic vol] 11.1 fL Normal 6.2-12.0 [facility] Comment on above: Order Comment: Order Date: 10/05/24 Order Info: 0184-1 - CBCD Performed By: #### L 500.4050, L100.0100 #### [facility] [address] [place], [address] Platelets (Bld) [#/Vol] 207 10*3/uL Normal 150-450 [facility] Comment on above: Order Comment: Order Date: 10/05/24 Order Info: 0184-1 - CBCD Performed By: #### L 500.4050, L100.0100 #### [facility] [address] [place], [address] RBC (Bld) [#/Vol] 4.01 10*6/uL Low 4.2-5.4 [facility] Comment on above: Order Comment: Order Date: 10/05/24 Order Info: 018- - CBCD Performed By: #### L 500.4050, L100.0100 #### [facility] [address] [place], [address] RDW SD 40.4 fl Normal 35.1-43.9 [facility] Comment on above: Order Comment: Order Date: 10/05/24 Order Info: 0184- - CBCD Performed By: #### L 500.4050, L100.0100 #### [facility] [address] [place], [address] WBC (Bld) [#/Vol] 6.3 10*3/uL Normal 4.4-11.0 [facility] Comment on above: Order Comment: Order Date: 10/05/24 Order Info: 0184- - CBCD Performed By: #### L 500.4050, L100.0100 #### [facility] [address] [place], [address] Carbon dioxide measurementOr dered By: Marta Koehler on 10-05-2024 CO2 [Moles/Vol] 23.0 mmol/L 21.0-32.0 [facility] Chloride measurementOrdered By: Marta Koehler on 10-05-2024 Chloride [Moles/Vol] 106 mmol/L 98-107 [facility] Comprehensive Metabolic Prof ilon 10-05-2024 Albumin [Mass/Vol] 3.4 g/dL Normal 3.2-5.0 [facility] Comment on above: Order Comment: Order Date: 10/05/24 Order Info: 0786-1 - CMP Performed By: #### L 500.4050, L100.0100 #### [facility] [address] [place], [address] Albumin/Globulin [Mass ratio] 1.0 {ratio} Normal 0.9-2.4 [facility] Comment on above: Order Comment: Order Date: 10/05/24 Order Info: 0786-1 - CMP Performed By: #### L 500.4050, L100.0100 #### [facility] [address] [place], [address] ALK P 64 U/L Normal 45-117 [facility] Comment on above: Order Comment: Order Date: 10/05/24 Order Info: 0786-1 - CMP Performed By: #### L 500.4050, L100.0100 #### [facility] [address] [place], [address] ALT [Catalytic activity/Vol] 19 U/L Normal 13-56 [facility] Comment on above: Order Comment: Order Date: 10/05/24 Order Info: 0786-1 - CMP Performed By: #### L 500.4050, L100.0100 #### [facility] [address] [place], [address] AST [Catalytic activity/Vol] 15 U/L Normal 15-37 [facility] Comment on above: Order Comment: Order Date: 10/05/24 Order Info: 0786-1 - CMP Performed By: #### L 500.4050, L100.0100 #### [facility] [address] [place], [address] Bilirubin [Mass/Vol] 0.40 mg/dL Normal 0.20-1.00 [facility] Comment on above: Order Comment: Order Date: 10/05/24 Order Info: 0786-1 - CMP Result Comment: For patients on eltrombopag therapy, use of Dimension [place] TBIL is not recommended. Performed By: #### L 500.4050, L100.0100 #### [facility] [address] [place], [address] BUN/CRE 13.8 RATIO Normal 10-20 [facility] Comment on above: Order Comment: Order Date: 10/05/24 Order Info: 0786-1 - CMP Performed By: #### L 500.4050, L100.0100 #### [facility] [address] [place], [address] CA,Total 9.4 mg/dL Normal 8.5-10.1 [facility] Comment on above: Order Comment: Order Date: 10/05/24 Order Info: 0786-1 - CMP Performed By: #### L 500.4050, L100.0100 #### [facility] [address] [place], [address] Chloride [Moles/Vol] 106 mmol/L Normal 98-107 [facility] Comment on above: Order Comment: Order Date: 10/05/24 Order Info: 0786-1 - CMP Performed By: #### L 500.4050, L100.0100 #### [facility] [address] [place], [address] CO2 [Moles/Vol] 23.0 mmol/L Normal 21.0-32.0 [facility] Comment on above: Order Comment: Order Date: 10/05/24 Order Info: 0786-1 - CMP Performed By: #### L 500.4050, L100.0100 #### [facility] [address] [place], [address] Creatinine [Mass/Vol] 2.03 mg/dL High 0.55-1.02 [facility] Comment on above: Order Comment: Order Date: 10/05/24 Order Info: 0786-1 - CMP Result Comment: The validity of the calculated GFR GFRAA in patients over 70 years has not been determined. Clinical correlation is essential. Performed By: #### L 500.4050, L100.0100 #### [facility] [address] [place], [address] EST GFR - AA 31 mL/min Low >60 [facility] Comment on above: Order Comment: Order Date: 10/05/24 Order Info: 0786-1 - CMP Result Comment: Afri can [place] GFR Calc Performed By: #### L 500.4050, L100.0100 #### [facility] [address] [place], [address] GAP 7 Normal 5-15 [facility] Comment on above: Order Comment: Order Date: 10/05/24 Order Info: 0786-1 - CMP Performed By: #### L 500.4050, L100.0100 #### [facility] [address] [place], [address] GFR/1.73 sq M.predicted among non-blacks MDRD (S/P/Bld) [Vol rate/Area] 25 mL/min/{1.73_m2} Low >60 [facility] Comment on above: Order Comment: Order Date: 10/05/24 Order Info: 0786-1 - CMP Result Comment: Non- GFR Calc Performed By: #### L 500.4050, L100.0100 #### [facility] [address] [place], [address] Globulin (S) [Mass/Vol] 3.3 g/dL Normal 2.2-4.2 [facility] Comment on above: Order Comment: Order Date: 10/05/24 Order Info: 0786-1 - CMP Performed By: #### L 500.4050, L100.0100 #### [facility] [address] [place], [address] Glucose [Mass/Vol] 145 mg/dL High 74-106 [facility] Comment on above: Order Comment: Order Date: 10/05/24 Order Info: 0786-1 - CMP Result Comment: Fast ing Glucose result greater than or equal to 126 mg/dL suggests DIABETES MELLITUS per A.D.A. criteria. Performed By: #### L 500.4050, L100.0100 #### [facility] [address] [place], [address] Potassium [Moles/Vol] 4.7 mmol/L Normal 3.5-5.1 [facility] Comment on above: Order Comment: Order Date: 10/05/24 Order Info: 0786-1 - CMP Performed By: #### L 500.4050, L100.0100 #### [facility] [address] [place], [address] Sodium [Moles/Vol] 136 mmol/L Normal 136-145 [facility] Comment on above: Order Comment: Order Date: 10/05/24 Order Info: 0786-1 - CMP Performed By: #### L 500.4050, L100.0100 #### [facility] [address] [place], [address] T PROT 6.7 g/dL Normal 6.4-8.2 [facility] Comment on above: Order Comment: Order Date: 10/05/24 Order Info: 0786-1 - CMP Performed By: #### L 500.4050, L100.0100 #### [facility] [address] [place], [address] Urea nitrogen [Mass/Vol] 28 mg/dL High 7-18 [facility] Comment on above: Order Comment: Order Date: 10/05/24 Order Info: 0786-1 - CMP Performed By: #### L 500.4050, L100.0100 #### [facility] [address] [place], [address] Eosinophil percentageOrdered By: Marta Koehler on 10-05-2024 Eosinophils/100 WBC (Bld) 3.5 % 0-5 [facility] Erythrocyte distribution wid th ratioOrdered By: Marta Koehler on 10-05-2024 Erythrocyte distribution width (RBC) [Ratio] 12.5 % 11.6-14.6 [facility] Erythrocyte distribution wid th standard deviationOrdered By: Marta Koehler on 10-05-2024 Erythrocyte distribution width (RBC) [Entitic vol] 40.4 fL 35.1-43.9 [facility] Estimated glomerular filtrat ion rate (GFR) AmericanOrdered By: Marta Koehler on 10-05-2024 Estimated GFR (MDRD) Amer 31 mL/min Low >60 [facility] Comment on above: GFR Calc Glomerular filtration rate ( GFR) estimationOrdered By: Marta Koehler on 10-05-2024 Estimated GFR (MDRD) Non-Af Amer 25 mL/min Low >60 [facility] Comment on above: Non- GFR Calc Glucose measurementOrdered B y: Marta Koehler on 10-05-2024 Glucose [Mass/Vol] 145 mg/dL High 74-106 [facility] Comment on above: Fasting Glucose resu lt greater than or equal to 126 mg/dL suggests DIABETES MELLITUS per A.D.A. criteria. Hematocrit Auto (Bld) [Volum e fraction]Ordered By: Marta Koehler on 10-05-2024 Hematocrit (Bld) [Volume fraction] 35.5 % Low 37-47 [facility] Hemoglobin measurementOrdere d By: Marta Koehler on 10-05-2024 Hemoglobin (Bld) [Mass/Vol] 11.4 g/dL Low 12.0-15.0 [facility] Immature granulocytes/100 WB C Auto (Bld)Ordered By: Marta Koehler on 10-05-2024 Immature granulocytes/100 WBC (Bld) 0.300 % 0.0-0.9 [facility] Comment on above: IG% - Immature Granu locytes (promyelocytes, myelocytes and metamyelocytes) > 1% indicates that a LEFT SHIFT is Present. Laboratory - Chemistry and C hemistry - challengeOrdered By: Marta Koehler on 10-05-2024 AST [Catalytic activity/Vol] 15 U/L 15-37 [facility] Lymphocytes Auto (Unsp spec) [#/Vol]Ordered By: Marat Koehler on 10-05-2024 Lymphocytes (Bld) [#/Vol] 1.08 10*3/uL 0.83-4.5 1 [facility] Lymphocytes/100 WBC Auto (Un sp spec)Ordered By: Marta Koehler on 10-05-2024 Lymphocytes/100 WBC (Bld) 17.1 % Low 19-41 [facility] MCV (mean corpuscular volume ) determinationOrdered By: Marta Koehler on 10-05-2024 MCV (RBC) [Entitic vol] 88.5 fL 81-99 [facility] Mean corpuscular hemoglobin (MCH) determinationOrdered By: Marta Koehler on 10-05-2024 MCH (RBC) [Entitic mass] 28.4 pg 27.0-32.0 [facility] Mean corpuscular hemoglobin concentration (MCHC) determinationOrdered By: Marta Koehler on 10-05-2024 MCHC (RBC) [Mass/Vol] 32.1 g/dL 32-36 [facility] Mean platelet volume determi nationOrdered By: Marta Koehler on 10-05-2024 Platelet mean volume (Bld) [Entitic vol] 11.1 fL 6.2-12.0 [facility] Monocyte percentageOrdered B y: Marta Koehler on 10-05-2024 Monocytes/100 WBC (Bld) 8.6 % 0-10 [facility] Neutrophil percentageOrdered By: Marta Koehler on 10-05-2024 Neutrophils/100 WBC (Bld) 69.2 % 47-70 [facility] Nucleated red blood cell per centageOrdered By: Marta Koehler on 10-05-2024 Nucleated RBC/100 WBC (Bld) [Ratio] 0 % 0-5 [facility] Platelet countOrdered By: Opal Keohler on 10-05-2024 Platelets (Bld) [#/Vol] 207 10*3/uL 150-450 [facility] Potassium measurementOrdered By: Marta Koelher on 10-05-2024 Potassium [Moles/Vol] 4.7 mmol/L 3.5-5.1 [facility] RBC Auto (Bld) [#/Vol]Ordere d By: Marta Koehler on 10-05-2024 RBC (Bld) [#/Vol] 4.01 10*6/uL Low 4.2-5.4 [facility] Serum anion gap measurementO rdered By: Marta Koehler on 10-05-2024 Anion gap [Moles/Vol] 7 mmol/L 5-15 [facility] Serum globulin measurementOr dered By: Marta Koehler on 10-05-2024 Globulin (S) [Mass/Vol] 3.3 g/dL 2.2-4.2 [facility] Serum or plasma alanine stephens otransferase (ALT) measurementOrdered By: Marta Koehler on 10-05-2024 ALT [Catalytic activity/Vol] 19 U/L 13-56 [facility] Serum or plasma albumin noemi urement (mass/volume)Ordered By: Marta Koehler on 10-05-2024 Albumin [Mass/Vol] 3.4 g/dL 3.2-5.0 [facility] Serum or plasma alkaline que sphatase measurementOrdered By: Marta Koehler on 10-05-2024 ALP [Catalytic activity/Vol] 64 U/L 45-117 [facility] Serum or plasma calcium noemi urement (mass/volume)Ordered By: Marta Koehler on 10-05-2024 Calcium [Mass/Vol] 9.4 mg/dL 8.5-10.1 [facility] Serum or plasma creatinine m easurement (mass/volume)Ordered By: Marta Koehler on 10-05-2024 Creatinine [Mass/Vol] 2.03 mg/dL High 0.55-1.02 [facility] Comment on above: The validity of the calculated GFR & GFRAA in patients over 70 years has not been determined. Clinical correlation is essential. Serum or plasma urea nitroge n measurement (mass/volume)Ordered By: Marta Koehler on 10-05-2024 Urea nitrogen [Mass/Vol] 28 mg/dL High 7-18 [facility] Sodium levelOrdered By: Marta Koehler on 10-05-2024 Sodium [Moles/Vol] 136 mmol/L 136-145 [facility] Total proteinOrdered By: Daniel Koehler on 10-05-2024 Protein [Mass/Vol] 6.7 g/dL 6.4-8.2 [facility] White blood cell (WBC) count Ordered By: Marta Koehler on 10-05-2024 WBC (Bld) [#/Vol] 6.3 10*3/uL 4.4-11.0 [facility] Gastrin, Serumon 09-30-2024 GASTRIN 590 pg/mL High 0-115 [facility] Comment on above: Order Comment: NFAST ING Result Comment: Siem Immulite 2000 Immunochemiluminometric assay (ICMA) Values obtained with different assay methods or kits cannot be used interchangeably. Results cannot be interpreted as absolute evidence of the presence or absence of malignant disease. Performed at: [facility] Lab[address] [id number] Seo Specialist: Rolo Castle PhD, Phone: [phone] Performed at: [facility] Lab[address] [id number] Seo Specialist: Joceline Do MD, Phone: [phone] Performed By: #### L 500.2500, L503.7220, L100.0100 #### [facility] [address] [place], [address] MAURI + Protein Elect, Serumon 09-30-2024 Albumin [Mass/Vol] 3.4 g/dL Normal 2.9-4.4 [facility] Comment on above: Order Comment: N FASTING Performed By: #### L 3300.1800, L3100.3425, L504.2610 #### [facility] [address] [place], [address] Albumin/Globulin [Mass ratio] 1.3 {ratio} Normal 0.7-1.7 [facility] Comment on above: Order Comment: N FASTING Performed By: #### L 3300.1800, L3100.3425, L504.2610 #### [facility] [address] [place], [address] IUKJR-2-DSQR 0.2 g/dL Normal 0.0-0.4 [facility] Comment on above: Order Comment: N FASTING Performed By: #### L 3300.1800, L3100.3425, L504.2610 #### [facility] [address] [place], [address] KDRVL-3-YHQL 0.9 g/dL Normal 0.4-1.0 [facility] Comment on above: Order Comment: N FASTING Performed By: #### L 3300.1800, L3100.3425, L504.2610 #### [facility] [address] [place], [address] BETA GLOBULIN 0.9 g/dL Normal 0.7-1.3 [facility] Comment on above: Order Comment: N FASTING Performed By: #### L 3300.1800, L3100.3425, L504.2610 #### [facility] [address] [place], [address] GAMMA GLOBULIN 0.8 g/dL Normal 0.4-1.8 [facility] Comment on above: Order Comment: N FASTING Performed By: #### L 3300.1800, L3100.3425, L504.2610 #### [facility] [address] [place], [address] Globulin (S) [Mass/Vol] 2.7 g/dL Normal 2.2-3.9 [facility] Comment on above: Order Comment: N FASTING Performed By: #### L 3300.1800, L3100.3425, L504.2610 #### [facility] [address] [place], [address] MAURI RESULT,S Comment Normal . [facility] Comment on above: Order Comment: N FASTING Result Comment: No m onoclonality detected. Performed By: #### L 3300.1800, L3100.3425, L504.2610 #### [facility] [address] [place], [address] IMMUNOGLOB A QN 190 mg/dL Normal 64-422 [facility] Comment on above: Order Comment: N FASTING Performed By: #### L 3300.1800, L3100.3425, L504.2610 #### [facility] [address] [place], [address] IMMUNOGLOB G QN 824 mg/dL Normal 586-1602 [facility] Comment on above: Order Comment: N FASTING Performed By: #### L 3300.1800, L3100.3425, L504.2610 #### [facility] [address] [place], [address] IMMUNOGLOB M QN 88 mg/dL Normal 26-217 [facility] Comment on above: Order Comment: N FASTING Performed By: #### L 3300.1800, L3100.3425, L504.2610 #### [facility] [address] [place], [address] M-Ramesh Not Observed Normal Not Observed [facility] Comment on above: Order Comment: N FASTING Performed By: #### L 3300.1800, L3100.3425, L504.2610 #### [facility] [address] [place], [address] NOTE: Comment Normal . [facility] Comment on above: Order Comment: N FASTING Result Comment: Prot ein electrophoresis scan will follow via computer, mail, or printed circuit boards contact printer delivery. Performed By: #### L 3300.1800, L3100.3425, L504.2610 #### [facility] [address] [place], [address] Protein [Mass/Vol] 6.1 g/dL Normal 6.0-8.5 [facility] Comment on above: Order Comment: N FASTING Performed By: #### L 3300.1800, L3100.3425, L504.2610 #### [facility] [address] [place], [address] Stress Reporton 09-29-2024 Stress Report [facility] [address] [place] [address] MR#: [id number] Acct: [id number] Name: EVERTON BEATTY Nash Rep #: [id number] : 1945 78 From: Alexis Hays MD Primary Care: Dr. Marta Koehler MD Status: REG CLI Referring Dr: Abeba Shea NP Sex: F C Stress Test Report Pharmacologic myocardial perfusion stress test. 78-year-old lady with a history of chest pain Resting EKG demonstrates sinus rhythm with a rate of 60 bpm. Resting blood pressure is 148/82 mmHg. 0.4 mg of regadenoson was infused per usual protocol followed by rapid intravenous saline flush injection. Continuous EKG monitoring was performed. The maximum heart rate was 107 bpm which was 74% of max impacted heart rate the maximum workload was 1 metabolic equivalent. At rest there were no ST or T wave changes noted to suggest ischemia and at peak infusion nonspecific ST changes were noted which did not meet the criteria for ischemia. No clinical angina is noted. The final blood pressure was 142/78 mmHg. Myocardial perfusion protocol. 14.4 mCi of technetium 99m sestamibi was injected at rest. 0.4 mg of regadenoson was infused per usual protocol. At peak infusion 44.8 mCi of technetium 99m sestamibi was injected stress images were obtained stress and rest images were reconstructed and compared in the short axis vertical long and horizontal long axis. Gated images were also obtained. Perfusion SPECT analysis: Review of the stress images demonstrate normal uptake of tracer noted in all areas of the myocardium. The resting images similar demonstrated normal uptake of tracer noted in all areas of the myocardium. No areas of reversibility are noted to suggest ischemia and no previous infarct is noted. Gated SPECT analysis: The gated ejection fraction is 74%. Conclusion: Normal pharmacologic myocardial perfusion stress test. Preserved ejection fraction. 09/29/241821 Date Alexis Hays MD CC: ISRAEL Shea; Dr. Marta Koehler MD Date Dictated: 09/29/241817 Date Transcribed: 09/29/241817 Inventory Control Specialist: CO Signed Normal [facility] Addendum DocumentOrdered By: Irma Reynaga on 09-27-2024 Serum Immunofixation Comments Comment . [facility] Comment on above: Protein electrophore sis scan will follow via computer,mail, or printed circuit boards contact printer delivery. Albumin Elph [Mass/Vol]Order ed By: Irma Reynaga on 09-27-2024 Albumin [Mass/Vol] 3.4 g/dL 2.9-4.4 [facility] Alpha 1 globulin Elph [Mass/ Vol]Ordered By: Irma Reynaga on 09-27-2024 Febkt-5-Lrxjeqbvo (MAURI) 0.2 g/dL 0.0-0.4 [facility] Cxple-1-Fudbbfijf (MAURI) 0.9 g/dL 0.4-1.0 [facility] Beta globulin Elph [Mass/Vol ]Ordered By: Irma Reynaga on 09-27-2024 Beta-Globulins (MAURI) 0.9 g/dL 0.7-1.3 [facility] Gamma globulin Elph [Mass/Vo l]Ordered By: Irma Reynaga on 09-27-2024 Gamma Globulins (MAURI) 0.8 g/dL 0.4-1.8 [facility] Gastrin [Mass/Vol]Ordered By : Irma Reynaga on 09-27-2024 Gastrin 590 pg/mL High 0-115 [facility] Comment on above: Siemens Immulite 200 0 Immunochemiluminometric assay (ICMA)Values obtained with different assay methods or kits cannotbe used interchangeably. Results cannot be interpreted asabsolute evidence of the presence or absence of malignantdisease.Performed at: - [address] [id number] Director: Rolo Castle PhD, Phone: [phone] at: - [facility] [id number] Director: Joceline Do MD, Phone: [phone] Gastroenterology Visit Repor ton 09-27-2024 Gastroenterology Visit Report [facility] [address] [place] [address] OFFICE VISIT Date of Service: 09/27/24 MR#: [id number] Acct: [id number] Name: EVERTON BEATTY Nash Rep #: [id number] : 1945 Provider: ISRAEL mallory Age/Sex: 78/F Location: [facility] Status: Signed Intake Vital Signs 09/16/24 14:49 09/27/24 11:04 Height 5 ft 3 in Weight: 235 lb 234 lb 2 oz BMI 41.6 BP 124/67 H 157/64 H Blood Pressure Location Lt brachial Position Sitting Respiration 18 18 Pulse 67 59 L Pulse Source Monitor Temp 98.0 F Pulse Oximetry (%) 95 97 Oxygen Delivery Method room air Intake Visit Reasons: Vomiting after eating, vomiting in am and in middle of the night Chief Complaint: vomit is mostly saliva, occasionally gets to the bile Unified Communications Engineer Required: No Is patient in pain?: No Allergies telithromycin (From Ketek) Allergy (Severe, Verified 09/27/24 11:10) Nausea/Vom/Diarrhea Penicillins (PCN) Allergy (Verified 09/27/24 11:10) Swelling Medications ???Medication ???Instructions ???Recorded ???Confirmed ???Type calcium carbonate 600 mg PO DAILY SUPPLEMENT 02/05/18 09/27/24 History coenzyme Q10 100 mg-vitamin E 10 1 ea PO DAILY Check with primary 02/05/18 09/27/24 History unit capsule doctor insulin glargine 100 unit/mL (3 35 units subcut 1000 diabetes 02/05/18 09/27/24 History mL) subcutaneous pen mometasone-formoterol HFA 200 2 puff IH DAILY ASTHMA 02/05/18 09/27/24 History mcg-5 mcg/actuation aerosol inhaler montelukast 10 mg tablet 10 mg PO DAILY Check with primary 02/05/18 09/27/24 History doctor multivitamin with iron 1 ea PO DAILY SUPPLEMENT 02/05/18 09/27/24 History pravastatin 20 mg tablet 20 mg PO QHS CHOLESTEROL 02/05/18 09/27/24 History sitagliptin phosphate 100 mg tablet 100 mg PO DAILY DIABETES 02/05/18 09/27/24 History albuterol sulfate 90 mcg/actuation 6.7 g IH Q4H PRN PRN Wheezing 12/08/19 09/27/24 History aerosol inhaler omeprazole 40 mg capsule,delayed 40 mg PO DAILY Check with primary 06/26/20 09/27/24 History release doctor acetaminophen 650 mg tablet 650 mg PO BID Check with primary 10/30/22 09/27/24 History doctor tramadol 50 mg tablet 50 mg PO BID Check with primary 10/30/22 09/27/24 History doctor docusate sodium 100 mg capsule 100 mg PO BID #20 caps 11/13/22 09/27/24 Rx (Colace) mgbazb-tccleatx-rbsauph See Rx Instructions PO .COMPLEX 03/07/23 09/27/24 Rx 36,000-114,000-180,000 unit #1,530 caps capsule,delay rel (Creon) amlodipine 10 mg tablet 10 mg PO QDAY 05/10/24 09/27/24 History empagliflozin 25 mg tablet 25 mg PO DAILY 05/10/24 09/27/24 History (Jardiance) levothyroxine 150 mcg tablet 150 mcg PO QDAY 05/10/24 09/27/24 History linaclotide 290 mcg capsule 290 mcg PO DAILY PRN 05/10/24 09/27/24 History (Linzess) carvedilol 6.25 mg tablet 6.25 mg PO BID #180 tabs 05/14/24 09/27/24 Rx prochlorperazine maleate 10 mg 10 mg PO Q8H PRN nausea and 08/05/24 09/27/24 Rx tablet (Compazine) vomiting #90 tabs furosemide 40 mg tablet 40 mg PO DAILY PRN WATER PILL 09/27/24 09/27/24 History ondansetron HCl 4 mg tablet 4 mg PO Q8H PRN nausea and 09/27/24 09/27/24 Rx vomiting #90 tabs vortioxetine 10 mg tablet 20 mg PO DAILY Check with primary 09/27/24 09/27/24 History (Trintellix) doctor Have you fallen in the past year?: No (denies) 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 Weight loss, unintentional GERD (gastroesophageal reflux disease) BiPAP (biphasic positive airway pressure) dependence Renal cell carcinoma Rosacea Lipodermatosclerosis Fibromyalgia Cervical spondylosis Psoriatic arthritis Constipation IBS (irritable bowel syndrome) Asthma Sleep apnea Depression Arthritis History of back problems Surgical History (Reviewed 09/16/24 @ 14:55 by Abeba Shea TRUCK MECHANIC APPRENTICE, TRUCK MECHANIC APPRENTICE-C) History of nephrectomy, left History of tubal ligation History of cholecystectomy History of hysterectomy history bilateral cataract surgery Family History (Reviewed 09/16/24 @ 14:55 by Abeba Shea TRUCK MECHANIC APPRENTICE, TRUCK MECHANIC APPRENTICE-C) Grandfather Arthritis Father Diabetes Grandmother Heart disease Hypertension Social History (Reviewed 09/16/24 @ 14:55 by Abeba Shea TRUCK MECHANIC APPRENTICE, TRUCK MECHANIC APPRENTICE-C) household members: spouse Smoking Status: Former smoker alcohol intake: current alcoho (more content not included)... Normal [facility] IgA [Mass/Vol]Ordered By: Franck Reynaga on 09-27-2024 Immunoglobulin A 190 mg/dL 64-422 [facility] IgG [Mass/Vol]Ordered By: Franck Reynaga on 09-27-2024 Immunoglobulin G 824 mg/dL 586-1602 [facility] Immunoglobulin M measurement Ordered By: Irma Reynaga on 09-27-2024 Immunoglobulin M 88 mg/dL 26-217 [facility] Interpretation IEP [Interp]O rdered By: Irma Reynaga on 09-27-2024 Immunofixation Screen Comment . [facility] Comment on above: No monoclonality det ected. LDHon 09-27-2024 LDH 135 U/L Normal 84-246 [facility] Comment on above: Order Comment: GAB MILLER 1 Performed By: #### L 3300.1800, L3100.3425, L504.2610 #### [facility] [address] [place], [address] Lactate dehydrogenase (LDH) measurementOrdered By: Irma Reynaga on 09-27-2024 LDH [Catalytic activity/Vol] 135 U/L 84-246 [facility] Protein Fractions Immunofixa tion John [Interp]Ordered By: Irma Reynaga on 09-27-2024 M-Ramesh (MAURI) Not Observed g/dL Not Observed [facility] Serum albumin/globulin ratio Ordered By: Irma Reynaga on 09-27-2024 Albumin/Globulin (MAURI) 1.3 0.7-1.7 [facility] Serum globulin measurement ( mass/volume)Ordered By: Irma Reynaga on 09-27-2024 Globulin (S) [Mass/Vol] 2.7 g/dL 2.2-3.9 [facility] Serum or plasma protein noemi urement (mass/volume)Ordered By: Irma Reynaga on 09-27-2024 Protein [Mass/Vol] 6.1 g/dL 6.0-8.5 [facility] BNP,B-Type NATRIURETIC PEPTI [place] 09-16-2024 Natriuretic peptide B (Bld) [Mass/Vol] 120.8 pg/mL High 0-100 [facility] Comment on above: Performed By: #### L 500.2500, L503.6620, L100.0100 #### [facility] [address] [place], [address] Basic Metabolic Profile (BMP )on 09-16-2024 BUN/CRE 14.4 RATIO Normal 10-20 [facility] Comment on above: Performed By: #### L 500.2500, L503.6620, L100.0100 #### [facility] [address] [place], [address] CA,Total 9.4 mg/dL Normal 8.5-10.1 [facility] Comment on above: Performed By: #### L 500.2500, L503.6620, L100.0100 #### [facility] [address] [place], [address] Chloride [Moles/Vol] 107 mmol/L Normal 98-107 [facility] Comment on above: Performed By: #### L 500.2500, L503.6620, L100.0100 #### [facility] [address] [place], [address] CO2 [Moles/Vol] 26.0 mmol/L Normal 21.0-32.0 [facility] Comment on above: Performed By: #### L 500.2500, L503.6620, L100.0100 #### [facility] [address] [place], [address] Creatinine [Mass/Vol] 1.80 mg/dL High 0.55-1.02 [facility] Comment on above: Result Comment: The validity of the calculated GFR GFRAA in patients over 70 years has not been determined. Clinical correlation is essential. Performed By: #### L 500.2500, L503.6620, L100.0100 #### [facility] [address] [place], [address] EST GFR - AA 35 mL/min Low >60 [facility] Comment on above: Result Comment: Afri can [place] GFR Calc Performed By: #### L 500.2500, L503.6620, L100.0100 #### [facility] [address] [place], [address] GAP 4 Low 5-15 [facility] Comment on above: Performed By: #### L 500.2500, L503.6620, L100.0100 #### [facility] [address] [place], [address] GFR/1.73 sq M.predicted among non-blacks MDRD (S/P/Bld) [Vol rate/Area] 29 mL/min/{1.73_m2} Low >60 [facility] Comment on above: Result Comment: Non- GFR Calc Performed By: #### L 500.2500, L503.6620, L100.0100 #### [facility] [address] [place], [address] Glucose [Mass/Vol] 154 mg/dL High 74-106 [facility] Comment on above: Result Comment: Fast ing Glucose result greater than or equal to 126 mg/dL suggests DIABETES MELLITUS per A.D.A. criteria. Performed By: #### L 500.2500, L503.6620, L100.0100 #### [facility] [address] [place], [address] Potassium [Moles/Vol] 4.3 mmol/L Normal 3.5-5.1 [facility] Comment on above: Performed By: #### L 500.2500, L503.6620, L100.0100 #### [facility] [address] [place], [address] Sodium [Moles/Vol] 137 mmol/L Normal 136-145 [facility] Comment on above: Performed By: #### L 500.2500, L503.6620, L100.0100 #### [facility] [address] [place], [address] Urea nitrogen [Mass/Vol] 26 mg/dL High 7-18 [facility] Comment on above: Performed By: #### L 500.2500, L503.6620, L100.0100 #### [facility] [address] [place], [address] CBC W/Diff, Automatedon 11-0 7-2023 Absolute Lymph 1.30 X10 3/uL Normal 0.83-4.51 [facility] Comment on above: Performed By: #### L 500.2500, L503.6620, L100.0100 #### [facility] [address] [place], [address] Absolute Neut 3.9 X10 3/uL Normal 2.0-7.7 [facility] Comment on above: Performed By: #### L 500.2500, L503.6620, L100.0100 #### [facility] [address] [place], [address] Basophils/100 WBC (Bld) 2.0 % High 0-1 [facility] Comment on above: Performed By: #### L 500.2500, L503.6620, L100.0100 #### [facility] [address] [place], [address] Eosinophils/100 WBC (Bld) 5.6 % High 0-5 [facility] Comment on above: Performed By: #### L 500.2500, L503.6620, L100.0100 #### [facility] [address] [place], [address] Erythrocyte distribution width (RBC) [Ratio] 12.0 % Normal 11.6-14.6 [facility] Comment on above: Performed By: #### L 500.2500, L503.6620, L100.0100 #### [facility] [address] [place], [address] Hematocrit (Bld) [Volume fraction] 35.0 % Low 37-47 [facility] Comment on above: Performed By: #### L 500.2500, L503.6620, L100.0100 #### [facility] [address] [place], [address] Hemoglobin (Bld) [Mass/Vol] 11.2 g/dL Low 12.0-15.0 [facility] Comment on above: Performed By: #### L 500.2500, L503.6620, L100.0100 #### [facility] [address] [place], [address] IG% 0.500 Normal 0.0-0.9 [facility] Comment on above: Result Comment: IG% - Immature Granulocytes (promyelocytes, myelocytes and metamyelocytes) > 1% indicates that a LEFT SHIFT is Present. Performed By: #### L 500.2500, L503.6620, L100.0100 #### [facility] [address] [place], [address] Lymphocytes/100 WBC (Bld) 20.3 % Normal 19-41 [facility] Comment on above: Performed By: #### L 500.2500, L503.6620, L100.0100 #### [facility] [address] [place], [address] MCH (RBC) [Entitic mass] 28.5 pg Normal 27.0-32.0 [facility] Comment on above: Performed By: #### L 500.2500, L503.6620, L100.0100 #### [facility] [address] [place], [address] MCHC (RBC) [Mass/Vol] 32.0 g/dL Normal 32-36 [facility] Comment on above: Performed By: #### L 500.2500, L503.6620, L100.0100 #### [facility] [address] [place], [address] MCV (RBC) [Entitic vol] 89.1 fL Normal 81-99 [facility] Comment on above: Performed By: #### L 500.2500, L503.6620, L100.0100 #### [facility] [address] [place], [address] Monocytes/100 WBC (Bld) 10.3 % High 0-10 [facility] Comment on above: Performed By: #### L 500.2500, L503.6620, L100.0100 #### [facility] [address] [place], [address] Neutrophils/100 WBC (Bld) 61.3 % Normal 47-70 [facility] Comment on above: Performed By: #### L 500.2500, L503.6620, L100.0100 #### [facility] [address] [place], [address] Nucleated RBC (Bld) [#/Vol] 0 10*3/uL Normal 0-5 [facility] Comment on above: Performed By: #### L 500.2500, L503.6620, L100.0100 #### [facility] [address] [place], [address] Platelet mean volume (Bld) [Entitic vol] 10.9 fL Normal 6.2-12.0 [facility] Comment on above: Performed By: #### L 500.2500, L503.6620, L100.0100 #### [facility] [address] [place], [address] Platelets (Bld) [#/Vol] 233 10*3/uL Normal 150-450 [facility] Comment on above: Performed By: #### L 500.2500, L503.6620, L100.0100 #### [facility] [address] [place], [address] RBC (Bld) [#/Vol] 3.93 10*6/uL Low 4.2-5.4 [facility] Comment on above: Performed By: #### L 500.2500, L503.6620, L100.0100 #### [facility] [address] [place], [address] RDW SD 39.1 fl Normal 35.1-43.9 [facility] Comment on above: Performed By: #### L 500.2500, L503.6620, L100.0100 #### [facility] [address] [place], [address] WBC (Bld) [#/Vol] 6.4 10*3/uL Normal 4.4-11.0 [facility] Comment on above: Performed By: #### L 500.2500, L503.6620, L100.0100 #### [facility] [address] [place], [address] Cardiology Visit Reporton Cardiology Visit Report [facility] [address] [place] [address] OFFICE VISIT Date of Service: 09/16/24 MR#: [id number] Acct: [id number] Name: EVERTON BEATTY Rep #: [id number] : 1945 Provider: [place] [facility] Age/Sex: 78/F Location: [facility] [place] Status: Signed HPI HPI History of Present Illness Details: This is a 78-year-old lady who presents today for a cardiovascular follow-up visit. She has a history of hypertension, chronic kidney disease, pancreatic insufficiency, renal cell carcinoma status post nephrectomy left who apparently presented to see the pain doctor. She was noted to be bradycardic and so was sent to cardiology for further evaluation and management. She also had 1 episode where she was folding her laundry and she apparently passed out. She said that she had no premonition of the above. She generally does not have any dizziness she has been compliant with her antihypertensive medication which is the carvedilol as well as the amlodipine. From a cardiac standpoint, the patient is doing well. She presents to the office in a wheel chair. She does acknowledge occasional palpitations-she describes this as a strong heart beat. She denies any palpitations, chest pain, pressure or heaviness. She does acknowledge SOB with exertion. She states this is newer. She denies Orthopnea, and PND. She does not have bleeding issues; no blood in urine, stool or nosebleeds. She does acknowledge fatigue. She denies myalgias, or claudication. She does not have edema, or sudden weight gain. She does acknowledge occasional lightheadedness with quick positional changes. She denies dizziness, syncopal or near syncopal episodes, and headaches. Intake Vital Signs 05/14/24 11:21 09/16/24 14:49 Height 5 ft 3 in 5 ft 3 in Weight: 235 lb BMI 41.6 BP 124/67 H Blood Pressure Location Lt brachial Position Sitting Respiration 18 Pulse 67 Pulse Source Monitor Pulse Oximetry (%) 95 Intake Visit Reasons: 6 M FU Unified Communications Engineer Required: No Is patient in pain?: No Allergies telithromycin (From Ketek) Allergy (Severe, Verified 09/16/24 14:55) Nausea/Vom/Diarrhea Penicillins (PCN) Allergy (Verified 09/16/24 14:55) Swelling Medications ???Medication ???Instructions ???Recorded ???Confirmed ???Type calcium carbonate 600 mg PO DAILY SUPPLEMENT 02/05/18 09/16/24 History cetirizine 10 mg tablet 10 mg PO DAILY Check with primary 02/05/18 09/16/24 History doctor coenzyme Q10 100 mg-vitamin E 10 1 ea PO DAILY Check with primary 02/05/18 09/16/24 History unit capsule doctor insulin glargine 100 unit/mL (3 35 units subcut 1000 diabetes 02/05/18 09/16/24 History mL) subcutaneous pen levocetirizine 5 mg tablet 5 mg PO DAILY Check with primary 02/05/18 09/16/24 History doctor mometasone-formoterol HFA 200 2 puff IH DAILY ASTHMA 02/05/18 09/16/24 History mcg-5 mcg/actuation aerosol inhaler montelukast 10 mg tablet 10 mg PO DAILY Check with primary 02/05/18 09/16/24 History doctor multivitamin with iron 1 ea PO DAILY SUPPLEMENT 02/05/18 09/16/24 History pravastatin 20 mg tablet 20 mg PO QHS CHOLESTEROL 02/05/18 09/16/24 History sitagliptin phosphate 100 mg tablet 100 mg PO DAILY DIABETES 02/05/18 09/16/24 History albuterol sulfate 90 mcg/actuation 6.7 g IH Q4H PRN PRN Wheezing 12/08/19 09/16/24 History aerosol inhaler omeprazole 40 mg capsule,delayed 40 mg PO DAILY Check with primary 06/26/20 09/16/24 History release doctor Miralax 1 dose OTHER DAILY Check with 10/30/22 09/16/24 History primary doctor acetaminophen 650 mg tablet 650 mg PO BID Check with primary 10/30/22 09/16/24 History doctor tramadol 50 mg tablet 50 mg PO BID Check with primary 10/30/22 09/16/24 History doctor vortioxetine 10 mg tablet 10 mg PO DAILY Check with primary 10/30/22 09/16/24 History (Trintellix) doctor docusate sodium 100 mg capsule 100 mg PO BID #20 caps 11/13/22 09/16/24 Rx (Colace) [id number] See Rx Instructions PO .COMPLEX 03/07/23 09/16/24 Rx 36,000-114,000-180,000 unit #1,530 caps capsule,delay rel (Creon) sucralfate 100 mg/mL oral 10 ml PO QAC #2,727 mL 02/02/24 09/16/24 Rx suspension amlodipine 10 mg tablet 10 mg PO QDAY 05/10/24 09/16/24 History empagliflozin 25 mg tablet 25 mg PO DAILY 05/10/24 09/16/24 History (Jardiance) levothyroxine 150 mcg tablet 150 mcg PO QDAY 05/10/24 09/16/24 History linaclotide 290 mcg capsule 290 mcg PO DAILY PRN 05/10/24 09/16/24 History (Linzess) solifenacin 10 mg tablet 10 mg PO QDAY 05/10/24 09/16/24 History carvedilol 6.25 mg tablet 6.25 mg PO BID #180 tabs 05/14/24 09/16/24 Rx prochlorperazine maleate 10 mg 10 mg PO Q8H PRN nausea and 08/05/24 09/16/24 Rx tablet (Compazine) vomiting #90 tabs furosemide 40 mg tabl (more content not included)... Normal [facility] Urine Cultureon 08-02-2024 [facility] Citrobacter freundii [place] Count >100,000 Citrobacter freundii: REACTION ceFAZolin Islt ALLEN >=64 R Cefepime Islt ALLEN <=0.12 S cefTRIAXone Islt ALLEN <=0.25 S Ciprofloxacin Islt ALLEN <=0.25 S Ertapenem Islt ALLEN <=0.12 S Gentamicin Islt ALLEN <=1 S Imipenem Islt ALLEN <=0.25 S levoFLOXacin Islt ALLEN 0.5 S Nitrofurantoin Islt ALLEN <=16 S Tobramycin Islt ALLEN <=1 S TMP SMX Islt ALLEN <=20 S Normal [facility] Comment on above: Performed By: #### L 500.4050, L100.0100 #### [facility] [address] [place], [address] CBC W/Diff, Automatedon 06-11 Absolute Lymph 1.06 X10 3/uL Normal 0.83-4.51 [facility] Comment on above: Order Comment: Order Date: 10/05/24 Order Info: [id number] - CMP Performed By: #### L 500.4050, L100.0100 #### [facility] [address] [place], [address] Absolute Neut 4.5 X10 3/uL Normal 2.0-7.7 [facility] Comment on above: Order Comment: Order Date: 10/05/24 Order Info: [id number] - CMP Performed By: #### L 500.4050, L100.0100 #### [facility] [address] [place], [address] Basophils/100 WBC (Bld) 1.5 % High 0-1 [facility] Comment on above: Order Comment: Order Date: 10/05/24 Order Info: [id number] - CMP Performed By: #### L 500.4050, L100.0100 #### [facility] [address] [place], [address] Eosinophils/100 WBC (Bld) 7.3 % High 0-5 [facility] Comment on above: Order Comment: Order Date: 10/05/24 Order Info: [id number] - CMP Performed By: #### L 500.4050, L100.0100 #### [facility] [address] [place], [address] Erythrocyte distribution width (RBC) [Ratio] 12.8 % Normal 11.6-14.6 [facility] Comment on above: Order Comment: Order Date: 10/05/24 Order Info: [id number] - CMP Performed By: #### L 500.4050, L100.0100 #### [facility] [address] [place], [address] Hematocrit (Bld) [Volume fraction] 34.4 % Low 37-47 [facility] Comment on above: Order Comment: Order Date: 10/05/24 Order Info: [id number] - CMP Performed By: #### L 500.4050, L100.0100 #### [facility] [address] [place], [address] Hemoglobin (Bld) [Mass/Vol] 11.0 g/dL Low 12.0-15.0 [facility] Comment on above: Order Comment: Order Date: 10/05/24 Order Info: [id number] - CMP Performed By: #### L 500.4050, L100.0100 #### [facility] [address] [place], [address] IG% 0.300 Normal 0.0-0.9 [facility] Comment on above: Order Comment: Order Date: 10/05/24 Order Info: [id number] - CMP Result Comment: IG% - Immature Granulocytes (promyelocytes, myelocytes and metamyelocytes) > 1% indicates that a LEFT SHIFT is Present. Performed By: #### L 500.4050, L100.0100 #### [facility] [address] [place], [address] Lymphocytes/100 WBC (Bld) 15.9 % Low 19-41 [facility] Comment on above: Order Comment: Order Date: 10/05/24 Order Info: [id number] - CMP Performed By: #### L 500.4050, L100.0100 #### [facility] [address] [place], [address] MCH (RBC) [Entitic mass] 30.5 pg Normal 27.0-32.0 [facility] Comment on above: Order Comment: Order Date: 10/05/24 Order Info: [id number] - CMP Performed By: #### L 500.4050, L100.0100 #### [facility] [address] [place], [address] MCHC (RBC) [Mass/Vol] 32.0 g/dL Normal 32-36 [facility] Comment on above: Order Comment: Order Date: 10/05/24 Order Info: [id number] - CMP Performed By: #### L 500.4050, L100.0100 #### [facility] [address] [place], [address] MCV (RBC) [Entitic vol] 95.3 fL Normal 81-99 [facility] Comment on above: Order Comment: Order Date: 10/05/24 Order Info: [id number] - CMP Performed By: #### L 500.4050, L100.0100 #### [facility] [address] [place], [address] Monocytes/100 WBC (Bld) 7.2 % Normal 0-10 [facility] Comment on above: Order Comment: Order Date: 10/05/24 Order Info: 0786-1 - CMP Performed By: #### L 500.4050, L100.0100 #### [facility] [address] [place], [address] Neutrophils/100 WBC (Bld) 67.8 % Normal 47-70 [facility] Comment on above: Order Comment: Order Date: 10/05/24 Order Info: 0786-1 - CMP Performed By: #### L 500.4050, L100.0100 #### [facility] [address] [place], [address] Nucleated RBC (Bld) [#/Vol] 0 10*3/uL Normal 0-5 [facility] Comment on above: Order Comment: Order Date: 10/05/24 Order Info: [id number] - CMP Performed By: #### L 500.4050, L100.0100 #### [facility] [address] [place], [address] Platelet mean volume (Bld) [Entitic vol] 11.0 fL Normal 6.2-12.0 [facility] Comment on above: Order Comment: Order Date: 10/05/24 Order Info: 0786-1 - CMP Performed By: #### L 500.4050, L100.0100 #### [facility] [address] [place], [address] Platelets (Bld) [#/Vol] 216 10*3/uL Normal 150-450 [facility] Comment on above: Order Comment: Order Date: 10/05/24 Order Info: 0786-1 - CMP Performed By: #### L 500.4050, L100.0100 #### [facility] [address] [place], [address] RBC (Bld) [#/Vol] 3.61 10*6/uL Low 4.2-5.4 [facility] Comment on above: Order Comment: Order Date: 10/05/24 Order Info: 0786-1 - CMP Performed By: #### L 500.4050, L100.0100 #### [facility] [address] [place], [address] RDW SD 44.2 fl High 35.1-43.9 [facility] Comment on above: Order Comment: Order Date: 10/05/24 Order Info: 0786-1 - CMP Performed By: #### L 500.4050, L100.0100 #### [facility] [address] [place], [address] WBC (Bld) [#/Vol] 6.7 10*3/uL Normal 4.4-11.0 [facility] Comment on above: Order Comment: Order Date: 10/05/24 Order Info: [id number] - CMP Performed By: #### L 500.4050, L100.0100 #### [facility] [address] [place], [address] Comprehensive Metabolic Prof ilon 06-29-2024 Albumin [Mass/Vol] 3.2 g/dL Normal 3.2-5.0 [facility] Comment on above: Order Comment: Order Date: 06/29/24Order Info: [id number] - CMPOrder Info: [id number] - LIPIDOrder Info: [id number] - PHOSOrder Info: [id number] - TSHOrder Info: [id number] - T4F Performed By: #### L 500.3600, L3300.1200, L501.0900 #### [facility] [address] [place], [address] Albumin/Globulin [Mass ratio] 1.1 {ratio} Normal 0.9-2.4 [facility] Comment on above: Order Comment: Order Date: 06/29/24Order Info: [id number] - CMPOrder Info: [id number] - LIPIDOrder Info: [id number] - PHOSOrder Info: [id number] - TSHOrder Info: [id number] - T4F Performed By: #### L 500.3600, L3300.1200, L501.0900 #### [facility] [address] [place], [address] ALK P 68 U/L Normal 45-117 [facility] Comment on above: Order Comment: Order Date: 06/29/24Order Info: [id number] - CMPOrder Info: [id number] - LIPIDOrder Info: [id number] - PHOSOrder Info: [id number] - TSHOrder Info: [id number] - T4F Performed By: #### L 500.3600, L3300.1200, L501.0900 #### [facility] [address] [place], [address] ALT [Catalytic activity/Vol] 18 U/L Normal 13-56 [facility] Comment on above: Order Comment: Order Date: 06/29/24Order Info: [id number] - CMPOrder Info: [id number] - LIPIDOrder Info: [id number] - PHOSOrder Info: [id number] - TSHOrder Info: [id number] - T4F Performed By: #### L 500.3600, L3300.1200, L501.0900 #### [facility] [address] [place], [address] AST [Catalytic activity/Vol] 19 U/L Normal 15-37 [facility] Comment on above: Order Comment: Order Date: 06/29/24Order Info: [id number] - CMPOrder Info: [id number] - LIPIDOrder Info: [id number] - PHOSOrder Info: [id number] - TSHOrder Info: [id number] - T4F Performed By: #### L 500.3600, L3300.1200, L501.0900 #### [facility] [address] [place], [address] Bilirubin [Mass/Vol] 0.30 mg/dL Normal 0.20-1.00 [facility] Comment on above: Order Comment: Order Date: 06/29/24Order Info: [id number] - CMPOrder Info: [id number] - LIPIDOrder Info: [id number] - PHOSOrder Info: [id number] - TSHOrder Info: [id number] - T4F Result Comment: For patients on eltrombopag therapy, use of Dimension [place] TBIL is not recommended. Performed By: #### L 500.3600, L3300.1200, L501.0900 #### [facility] [address] [place], [address] BUN/CRE 16.5 RATIO Normal 10-20 [facility] Comment on above: Order Comment: Order Date: 06/29/24Order Info: [id number] - CMPOrder Info: [id number] - LIPIDOrder Info: [id number] - PHOSOrder Info: [id number] - TSHOrder Info: [id number] - T4F Performed By: #### L 500.3600, L3300.1200, L501.0900 #### [facility] [address] [place], [address] CA,Total 9.2 mg/dL Normal 8.5-10.1 [facility] Comment on above: Order Comment: Order Date: 06/29/24Order Info: [id number] - CMPOrder Info: [id number] - LIPIDOrder Info: [id number] - PHOSOrder Info: [id number] - TSHOrder Info: [id number] - T4F Performed By: #### L 500.3600, L3300.1200, L501.0900 #### [facility] [address] [place], [address] Chloride [Moles/Vol] 109 mmol/L High 98-107 [facility] Comment on above: Order Comment: Order Date: 06/29/24Order Info: [id number] - CMPOrder Info: [id number] - LIPIDOrder Info: [id number] - PHOSOrder Info: [id number] - TSHOrder Info: [id number] - T4F Performed By: #### L 500.3600, L3300.1200, L501.0900 #### [facility] [address] [place], [address] CO2 [Moles/Vol] 26.0 mmol/L Normal 21.0-32.0 [facility] Comment on above: Order Comment: Order Date: 06/29/24Order Info: [id number] - CMPOrder Info: [id number] - LIPIDOrder Info: [id number] - PHOSOrder Info: [id number] - TSHOrder Info: [id number] - T4F Performed By: #### L 500.3600, L3300.1200, L501.0900 #### [facility] [address] [place], [address] Creatinine [Mass/Vol] 1.94 mg/dL High 0.55-1.02 [facility] Comment on above: Order Comment: Order Date: 06/29/24Order Info: [id number] - CMPOrder Info: [id number] - LIPIDOrder Info: [id number] - PHOSOrder Info: [id number] - TSHOrder Info: [id number] - T4F Result Comment: The validity of the calculated GFR GFRAA in patients over 70 years has not been determined. Clinical correlation is essential. Performed By: #### L 500.3600, L3300.1200, L501.0900 #### [facility] [address] [place], [address] EST GFR - AA 32 mL/min Low >60 [facility] Comment on above: Order Comment: Order Date: 06/29/24Order Info: [id number] - CMPOrder Info: [id number] - LIPIDOrder Info: [id number] - PHOSOrder Info: [id number] - TSHOrder Info: [id number] - T4F Result Comment: Afri can [place] GFR Calc Performed By: #### L 500.3600, L3300.1200, L501.0900 #### [facility] [address] [place], [address] GAP 5 Normal 5-15 [facility] Comment on above: Order Comment: Order Date: 06/29/24Order Info: [id number] - CMPOrder Info: [id number] - LIPIDOrder Info: 7-1 - PHOSOrder Info: [id number] - TSHOrder Info: [id number] - T4F Performed By: #### L 500.3600, L3300.1200, L501.0900 #### [facility] [address] [place], [address] GFR/1.73 sq M.predicted among non-blacks MDRD (S/P/Bld) [Vol rate/Area] 27 mL/min/{1.73_m2} Low >60 [facility] Comment on above: Order Comment: Order Date: 06/29/24Order Info: [id number] - CMPOrder Info: [id number] - LIPIDOrder Info: [id number] - PHOSOrder Info: [id number] - TSHOrder Info: [id number] - T4F Result Comment: Non- GFR Calc Performed By: #### L 500.3600, L3300.1200, L501.0900 #### [facility] [address] [place], [address] Globulin (S) [Mass/Vol] 3.0 g/dL Normal 2.2-4.2 [facility] Comment on above: Order Comment: Order Date: 06/29/24Order Info: [id number] - CMPOrder Info: [id number] - LIPIDOrder Info: [id number] - PHOSOrder Info: [id number] - TSHOrder Info: [id number] - T4F Performed By: #### L 500.3600, L3300.1200, L501.0900 #### [facility] [address] [place], [address] Glucose [Mass/Vol] 168 mg/dL High 74-106 [facility] Comment on above: Order Comment: Order Date: 06/29/24Order Info: 07- - CMPOrder Info: [id number] - LIPIDOrder Info: [id number] - PHOSOrder Info: 3 - TSHOrder Info: 7 - T4F Result Comment: Fast ing Glucose result greater than or equal to 126 mg/dL suggests DIABETES MELLITUS per A.D.A. criteria. Performed By: #### L 500.3600, L3300.1200, L501.0900 #### [facility] [address] [place], [address] Potassium [Moles/Vol] 5.0 mmol/L Normal 3.5-5.1 [facility] Comment on above: Order Comment: Order Date: 06/29/24Order Info: [id number]- - CMPOrder Info: [id number] - LIPIDOrder Info: [id number]- - PHOSOrder Info: 3 - TSHOrder Info: [id number] - T4F Performed By: #### L 500.3600, L3300.1200, L501.0900 #### [facility] [address] [place], [address] Sodium [Moles/Vol] 140 mmol/L Normal 136-145 [facility] Comment on above: Order Comment: Order Date: 06/29/24Order Info: 0786- - CMPOrder Info: [id number] - LIPIDOrder Info: 7- - PHOSOrder Info: 3 - TSHOrder Info: [id number] - T4F Performed By: #### L 500.3600, L3300.1200, L501.0900 #### [facility] [address] [place], [address] T PROT 6.2 g/dL Low 6.4-8.2 [facility] Comment on above: Order Comment: Order Date: 06/29/24Order Info: [id number] - CMPOrder Info: [id number] - LIPIDOrder Info: [id number] - PHOSOrder Info: [id number] - TSHOrder Info: [id number] - T4F Performed By: #### L 500.3600, L3300.1200, L501.0900 #### [facility] [address] [place], [address] Urea nitrogen [Mass/Vol] 32 mg/dL High 7-18 [facility] Comment on above: Order Comment: Order Date: 06/29/24Order Info: [id number] - CMPOrder Info: [id number] - LIPIDOrder Info: [id number] - PHOSOrder Info: [id number] - TSHOrder Info: [id number] - T4F Performed By: #### L 500.3600, L3300.1200, L501.0900 #### [facility] [address] [place], [address] Hemoglobin A1con 06-29-2024 HbA1c (Bld) [Mass fraction] 5.8 % High 3.8-5.6 [facility] Comment on above: Order Comment: Order Date: 06/29/24Order Info: [id number] - A1C Result Comment: Norm al < 5.7 % Prediabetic 5.7 - 6.4 % Diabetic >or= 6.5 % Please note range changes. Performed By: #### L 500.3600, L3300.1200, L501.0900 #### [facility] [address] [place], [address] Lipid Profileon 06-29-2024 Cholesterol [Mass/Vol] 125 mg/dL Normal 200 [facility] Comment on above: Order Comment: Order Date: 06/29/24Order Info: 86-1 - CMPOrder Info: [id number] - LIPIDOrder Info: 7-1 - PHOSOrder Info: 6-3 - TSHOrder Info: [id number] - T4F Result Comment: <200 mg/dL Desirable 200-240 mg/dL Borderline >240 mg/dL High Risk Performed By: #### L 500.3600, L3300.1200, L501.0900 #### [facility] [address] [place], [address] Cholesterol in HDL [Mass/Vol] 59 mg/dL Normal [facility] Comment on above: Order Comment: Order Date: 06/29/24Order Info: 785- - CMPOrder Info: [id number] - LIPIDOrder Info: [id number]- - PHOSOrder Info: 3 - TSHOrder Info: 7 - T4F Result Comment: The drugs N-Acetylcysteine and Metamizole may falsely depress this assay. Reference Range HDL <40 mg/dL Low HDL Cholesterol HDL >or= 60 mg/dL High HDL Cholesterol Performed By: #### L 500.3600, L3300.1200, L501.0900 #### [facility] [address] [place], [address] Cholesterol in LDL [Mass/Vol] 52 mg/dL Normal 0-130 [facility] Comment on above: Order Comment: Order Date: 06/29/24Order Info: 785-1 - CMPOrder Info: [id number] - LIPIDOrder Info: [id number]- - PHOSOrder Info: 6-3 - TSHOrder Info: [id number] - T4F Performed By: #### L 500.3600, L3300.1200, L501.0900 #### [facility] [address] [place], [address] Cholesterol in VLDL [Mass/Vol] 14 mg/dL Normal 5-40 [facility] Comment on above: Order Comment: Order Date: 06/29/24Order Info: 785-1 - CMPOrder Info: [id number] - LIPIDOrder Info: [id number] - PHOSOrder Info: [id number] - TSHOrder Info: 3027 - T4F Performed By: #### L 500.3600, L3300.1200, L501.0900 #### [facility] [address] [place], [address] Triglyceride [Mass/Vol] 72 mg/dL Normal [facility] Comment on above: Order Comment: Order Date: 06/29/24Order Info: [id number]- - CMPOrder Info: [id number] - LIPIDOrder Info: 7- - PHOSOrder Info: 3 - TSHOrder Info: 7 - T4F Result Comment: The drugs N-Acetylcysteine and Metamizole may falsely depress this assay. Serum Triglycerides Reference Interval Normal <150 mg/dL Borderline high 150 - 199 mg/dL High 200 - 499 mg/dL Very High > or = 500 mg/dL Performed By: #### L 500.3600, L3300.1200, L501.0900 #### [facility] [address] [place], [address] PTHINon 06-29-2024 PTH 96.6 pg/mL High 18.4-80.1 [facility] Comment on above: Order Comment: Order Date: 10/05/24 Order Info: 0786- - CMP Performed By: #### L 500.4050, L100.0100 #### [facility] [address] [place], [address] Phosphoruson 06-29-2024 Phosphate [Mass/Vol] 3.7 mg/dL Normal 2.5-4.9 [facility] Comment on above: Order Comment: Order Date: 06/29/24Order Info: 0786- - CMPOrder Info: [id number] - LIPIDOrder Info: [id number] - PHOSOrder Info: 63 - TSHOrder Info: 7 - T4F Performed By: #### L 500.3600, L3300.1200, L501.0900 #### [facility] [address] [place], [address] Protein+Creatinine Ratio,Uri neon 06-29-2024 PROT:CRE RATIO 689 mg/g CRE High 0-200 [facility] Comment on above: Performed By: #### L 500.2500, L503.6620, L100.0100 #### [facility] [address] [place], [address] Protein (U) [Mass/Vol] 48.0 mg/dL High <11.9 [facility] Comment on above: Performed By: #### L 500.2500, L503.6620, L100.0100 #### [facility] [address] [place], [address] UR CREAT 69.70 mg/dL Normal NO RANGE EST. [facility] Comment on above: Performed By: #### L 500.2500, L503.6620, L100.0100 #### [facility] [address] [place], [address] T4 Free Directon 06-29-2024 T4 FREE DIRECT 1.23 ng/dL Normal 0.76-1.46 [facility] Comment on above: Order Comment: Order Date: 06/29/24Order Info: [id number] - CMPOrder Info: [id number] - LIPIDOrder Info: [id number] - PHOSOrder Info: [id number] - TSHOrder Info: 3027 - T4F Performed By: #### L 500.3600, L3300.1200, L501.0900 #### [facility] [address] [place], [address] Thyroid Stim Hormone (TSH)on 06-29-2024 TSH 0.486 uIU/mL Normal 0.358-3.74 0 [facility] Comment on above: Order Comment: Order Date: 06/29/24Order Info: [id number] - CMPOrder Info: [id number] - LIPIDOrder Info: [id number]- - PHOSOrder Info: [id number] - TSHOrder Info: 302-7 - T4F Performed By: #### L 500.3600, L3300.1200, L501.0900 #### [facility] [address] [place], [address] Vitamin B12on 06-29-2024 Cobalamin (Vitamin B12) [Mass/Vol] 510 pg/mL Normal 211-911 [facility] Comment on above: Order Comment: Order Date: 10/05/24 Order Info: [id number] - CMP Performed By: #### L 500.4050, L100.0100 #### [facility] [address] [place], [address] Vitamin D,25 Hydroxyon 06-29 Vitamin D 25-OH 60.9 ng/mL Normal [facility] Comment on above: Order Comment: Order Date: 06/29/24Order Info: [id number] - F36Ifnnj Info: [id number] - VITD25 Result Comment: Anne min D 25(OH) Status Range Deficiency <20 ng/mL (50nmol/L) Insufficiency 20 - 30 ng/mL (50 - 75 nmol/L) Sufficiency 30 - 100 ng/mL (75 - 250 nmol/L) Toxicity >100 ng/mL (>250 nmol/L) Performed By: #### L 500.3600, L3300.1200, L501.0900 #### [facility] [address] [place], [address] ANCAon 06-08-2024 Atypical pANCA <1:20 Normal Neg:<1:20 [facility] Comment on above: Result Comment: The atypical pANCA pattern has been observed in a significant percentage of patients with ulcerative colitis, primary sclerosing cholangitis and autoimmune hepatitis. Performed at: [address] [id number] Seo Specialist: Rolo Castle PhD, Phone: [phone] Performed By: #### L 500.3600, L3300.1200, L501.0900 #### [facility] [address] [place], [address] Cytoplasmic Ab <1:20 Normal Neg:<1:20 [facility] Comment on above: Performed By: #### L 500.3600, L3300.1200, L501.0900 #### [facility] [address] [place], [address] Perinuclear Ab. <1:20 Normal Neg:<1:20 [facility] Comment on above: Result Comment: The presence of positive fluorescence exhibiting P-ANCA or C-ANCA patterns alone is not specific for the diagnosis of Ratna's Granulomatosis (WG) or microscopic polyangiitis. Decisions about treatment should not be based solely on ANCA IFA results. The International ANCA Group Consensus recommends follow up testing of positive sera with both ME- 3 and MPO-ANCA enzyme immunoassays. As many as 5% serum samples are positive only by EIA. Ref. AM J Clin Pathol 1999;111:507-513. Performed By: #### L 500.3600, L3300.1200, L501.0900 #### [facility] [address] [place], [address] Protein+Creatinine Ratio,Uri neon 06-04-2024 PROT:CRE RATIO 517 mg/g CRE High 0-200 [facility] Comment on above: Performed By: #### L 500.3600, L3300.1200, L501.0900 #### [facility] [address] [place], [address] Protein (U) [Mass/Vol] 47.6 mg/dL High <11.9 [facility] Comment on above: Performed By: #### L 500.3600, L3300.1200, L501.0900 #### [facility] [address] [place], [address] UR CREAT 92.10 mg/dL Normal NO RANGE EST. [facility] Comment on above: Performed By: #### L 500.3600, L3300.1200, L501.0900 #### [facility] [address] [place], [address] Renal Profileon 06-04-2024 Albumin [Mass/Vol] 3.0 g/dL Low 3.2-5.0 [facility] Comment on above: Performed By: #### L 500.3600, L3300.1200, L501.0900 #### [facility] [address] [place], [address] BUN/CRE 15.4 RATIO Normal 10-20 [facility] Comment on above: Performed By: #### L 500.3600, L3300.1200, L501.0900 #### [facility] [address] [place], [address] CA,Total 8.8 mg/dL Normal 8.5-10.1 [facility] Comment on above: Performed By: #### L 500.3600, L3300.1200, L501.0900 #### [facility] [address] [place], [address] Chloride [Moles/Vol] 111 mmol/L High 98-107 [facility] Comment on above: Performed By: #### L 500.3600, L3300.1200, L501.0900 #### [facility] [address] [place], [address] CO2 [Moles/Vol] 23.0 mmol/L Normal 21.0-32.0 [facility] Comment on above: Performed By: #### L 500.3600, L3300.1200, L501.0900 #### [facility] [address] [place], [address] Creatinine [Mass/Vol] 2.28 mg/dL High 0.55-1.02 [facility] Comment on above: Result Comment: The validity of the calculated GFR GFRAA in patients over 70 years has not been determined. Clinical correlation is essential. Performed By: #### L 500.3600, L3300.1200, L501.0900 #### [facility] [address] [place], [address] EST GFR - AA 27 mL/min Low >60 [facility] Comment on above: Result Comment: Afri can [place] GFR Calc Performed By: #### L 500.3600, L3300.1200, L501.0900 #### [facility] [address] [place], [address] GFR/1.73 sq M.predicted among non-blacks MDRD (S/P/Bld) [Vol rate/Area] 22 mL/min/{1.73_m2} Low >60 [facility] Comment on above: Result Comment: Non- GFR Calc Performed By: #### L 500.3600, L3300.1200, L501.0900 #### [facility] [address] [place], [address] Glucose [Mass/Vol] 120 mg/dL High 74-106 [facility] Comment on above: Result Comment: Fast ing Glucose result from 100 to 125 mg/dL suggests IMPAIRED HOMEOSTASIS per A.D.A. criteria. Performed By: #### L 500.3600, L3300.1200, L501.0900 #### [facility] [address] [place], [address] Phosphate [Mass/Vol] 3.6 mg/dL Normal 2.5-4.9 [facility] Comment on above: Performed By: #### L 500.3600, L3300.1200, L501.0900 #### [facility] [address] [place], [address] Potassium [Moles/Vol] 5.2 mmol/L High 3.5-5.1 [facility] Comment on above: Performed By: #### L 500.3600, L3300.1200, L501.0900 #### [facility] [address] [place], [address] Sodium [Moles/Vol] 139 mmol/L Normal 136-145 [facility] Comment on above: Performed By: #### L 500.3600, L3300.1200, L501.0900 #### [facility] [address] [place], [address] Urea nitrogen [Mass/Vol] 35 mg/dL High 7-18 [facility] Comment on above: Performed By: #### L 500.3600, L3300.1200, L501.0900 #### [facility] [address] [place], [address] Echo Completeon 06-01-2024 Echo Complete [facility] [address] [place] [address] Echo Complete 06/01/24 1320 MR#: [id number] Acct: [id number] Name: EVERTON BEATTY Rep #: [id number] : 1945 78 From: Alexis Hays MD Attending Dr: Dr. Alexis Hays MD Status: BALA MOSQUERA Ordering Dr: Alexis Hays MD Date: 06/01/24 Location: [facility] Sex: F C Admitted: Reason For Study: BRADYCARDIA Procedure This was a 2D Doppler, Color Flow transthoracic echocardiogram. The study was technically difficult. Exam performed in department. Left Ventricle Normal LV size. Mild concentric left ventricular hypertrophy. Left ventricular systolic function is normal. The left ventricular ejection fraction is 60 %. Stage 1 diastolic dysfunction. No regional wall motion abnormalities noted. Right Ventricle Normal RV size. Normal systolic function. Atria Normal left atrium. Normal right atrium. Mitral Valve There is mild to moderate mitral annular calcification. Tricuspid Valve Normal tricuspid valve. Aortic Valve Trisinus/trileaflet aortic valve. Pulmonic Valve Normal pulmonic valve. Great Vessels Normal aortic root. The pulmonary artery is normal size. Normal inferior vena cava. Pericardium/Pleural No pericardial effusion. MMode/2D Measurements Calculations LVIDd: 5.3 cm IVSd: 1.4 cm LVOT diam: 2.0 cm LVIDs: 2.8 cm LVPWd: 1.3 cm LVOT area: 3.1 cm2 RVDd: 3.7 cm FS: 47.3 % Ao root diam: 3.1 cm LAV(MOD-bp): 42.1 ml LVAd ap4: 20.5 cm2 LAV(MOD-bp) Indexed: 20.7 ml/m2 LVLd ap4: 6.8 cm LAV(MOD-sp2): 47.8 ml EDV(MOD-sp4): 52.9 ml LAV(MOD-sp4): 36.1 ml EDV(sp4-el): 52.6 ml LVAs ap4: 9.6 cm2 LVLs ap4: 6.2 cm ESV(MOD-sp4): 13.6 ml ESV(sp4-el): 12.6 ml EF(MOD-sp4): 74.2 % EF(sp4-el): 75.9 % LVAd ap2: 24.2 cm2 SV(MOD-sp4): 39.3 ml SV(MOD-sp2): 45.7 ml LVLd ap2: 7.2 cm EDV(MOD-sp2): 67.1 ml EDV(sp2-el): 69.0 ml LVAs ap2: 12.4 cm2 LVLs ap2: 6.3 cm ESV(MOD-sp2): 21.3 ml ESV(sp2-el): 20.7 ml EF(MOD-sp2): 68.2 % SV(sp4-el): 39.9 ml LA dimension(2D): 4.9 cm LA A4 area: 16.4 cm2 RA A4 area: 11.2 cm2 TAPSE: 2.1 cm Time Measurements MV dec time: 0.22 sec Doppler Measurements Calculations MV E max ricky: 72.3 cm/sec Lat Peak E' Ricky: 10.3 cm/sec Med Peak E' Ricky: 7.7 cm/sec MV A max ricky: 96.8 cm/sec E/E' lat: 7.0 E/E' med: 9.4 MV E/A: 0.75 Ao V2 max: 156.7 cm/sec LV V1 max: 116.1 cm/sec MV dec slope: 332.3 cm/sec2 Ao max P.8 mmHg LV V1 max P.4 mmHg Ao V2 mean: 113.0 cm/sec LV V1 mean P.7 mmHg Ao mean P.6 mmHg LV V1 mean: 79.1 cm/sec Ao V2 VTI: 38.4 cm LV V1 VTI: 25.5 cm AV (velocity ratio): 0.66 HAYLEE(I,D): 2.1 cm2 HAYLEE(V,D): 2.3 cm2 SV(LVOT): 79.5 ml PA V2 max: 88.2 cm/sec ECHO/Echo Complete Interpretation Summary Normal LV size. Left ventricular systolic function is normal. The left ventricular ejection fraction is 60 %. Mild concentric left ventricular hypertrophy. Stage 1 diastolic dysfunction. ___ Ordering Physician: Alexis Hays Referring Physician: Marta Koehler Performed By: Tessa Hurley RDCS and Student 06/01/24 1359 Date Alexis Hays MD CC: Dr. Alexis Hays MD; Dr. Marta Koehler MD Date Dictated: 06/01/24 1320 Date Transcribed: 06/01/24 1359 Inventory Control Specialist: Signed Normal [facility] Gastric Emptying Studyon Gastric Emptying Study [facility] Imaging Services [address] [place] [id number] Gastric Emptying Study MR#: [id number] Acct: [id number] Name: EVERTON BEATTY Nash Rep #: [id number] : 1945 F 78 From: Rajesh Monzon PCP: Dr. Marta Koehler MD Status: REG CLI Study: Gastric Emptying Study Date of Exam: 05/25/24 Exam# [id number] Ordering Dr: Marco Chin DO [id number] CLINICAL: 78-year-old female with history of clinical gastroparesis. SEMI-SOLID PHASE 99m Tc SULFUR COLLOID GASTRIC EMPTYING STUDY COMPARISON: Previous gastric emptying imaging examination report dated 02/07/2022 FINDINGS: The patient was administered 1.0 mCi of 99m Tc sulfur colloid mixed with oatmeal and consumed per os. Image acquisitions in the anterior-posterior projections were obtained for 60 minutes. There is prompt visualization of the stomach. There is no gastroesophageal reflux identified. The T ? raw data emptying was calculated to be 22.36 minutes, (Normal: 12-56 minutes) compared to 11.1 minutes defined on the prior examination dated 02/07/2022. NM/Gastric Emptying Study IMPRESSION: 1. NORMAL 99m Tc sulfur colloid semi-solid phase (oatmeal) gastric emptying imaging examination. A. There is normal and preserved semi-solid phase gastric emptying compared to normal controls. (Beverley et al, J Nucl Med Tech 38: 186, 2010). B. Overall compared to the previous semisolid phase gastric emptying examination dated 02/07/2022, there is current normal semisolid phase emptying as defined above. Electronically Signed: Rajesh Bautista DO at 12:02 EDT , CC: Dr. Marta Koehler MD; Marco Chin DO Inventory Control Specialist: Signed Normal [facility] 12 Lead EKG performed by [facility] on 05-14-2024 12 Lead EKG performed by [facility] [address] [place] [address] 12 Lead EKG performed by [facility] 05/14/24 1121 MR#: [id number] Acct: [id number] Name: EVERTON BEATTY Rep #: [id number] : 1945 78 From: Alexis Hays MD Attending Dr: Dr. Alexis Hays MD Status: DEP A MB Ordering Dr: Alexis Hays MD Date: 05/14/24 Location: [facility] Sex: F C Admitted: BMS/12 Lead EKG performed by [facility] ECG Report Interpretation -Sinus Bradycardia -Left atrial enlargement. -Poor R-wave progression -may be secondary to pulmonary disease consider old anterior infarct. Low voltage -possible pulmonary disease. ABNORMAL Electronically signed on 05/16/2024 at 08:10 by Alexis Hays Software Version [id number] 05/16/2412 Date Alexis Hays MD CC: Date Dictated: 05/14/24 112 Date Transcribed: 05/14/241120 Inventory Control Specialist: CO Signed Normal [facility] Cardiology Visit Reporton Cardiology Visit Report [facility] [place] [address] OFFICE VISIT Date of Service: 05/14/24 MR#: [id number] Acct: [id number] Name: EVERTON BEATTY Rep #: [id number] : 1945 Provider: Dr. Alexis Hays MD Age/Sex: 78/F Location: [facility] Status: Signed HPI HPI History of Present Illness Details: 78-year-old lady with a history of hypertension, chronic kidney disease, pancreatic insufficiency, renal cell carcinoma status post nephrectomy left who apparently presented to see the pain doctor. She was noted to be bradycardic and so was sent to cardiology for further evaluation and management. She also had 1 episode where she was folding her laundry and she apparently passed out. She said that she had no premonition of the above. She generally does not have any dizziness she has been compliant with her antihypertensive medication which is the carvedilol as well as the amlodipine. She has not had any palpitations no paroxysmal nocturnal dyspnea she does have pedal edema for which she takes Lasix on an as-needed basis. Her physical exam demonstrates clear lung españa regular rate and rhythm and 1+ pitting edema her electrocardiogram demonstrates sinus bradycardia with a rate of 57 bpm. Intake Vital Signs 01/18/23 12:23 05/14/24 11:21 Height 5 ft 3 in 5 ft 3 in Weight: 236 lb 8 oz BMI 41.8 BP 160/70 H Blood Pressure Location Rt radial Position Sitting Respiration 16 Pulse 58 L Pulse Source Monitor Intake Visit Reasons: Low HR/ FATIGUE (BASALI) Unified Communications Engineer Required: No Accompanied by: Is patient in pain?: No Allergies telithromycin (From Ketek) Allergy (Severe, Verified 05/10/24 09:02) Nausea/Vom/Diarrhea Penicillins (PCN) Allergy (Verified 05/10/24 09:02) Swelling Medications ???Medication ???Instructions ???Recorded ???Confirmed ???Type calcium carbonate 600 mg PO DAILY SUPPLEMENT 02/05/18 05/10/24 History cetirizine 10 mg tablet 10 mg PO DAILY Check with primary 02/05/18 01/17/23 History doctor coenzyme Q10 100 mg-vitamin E 10 1 ea PO DAILY Check with primary 02/05/18 05/10/24 History unit capsule doctor insulin glargine 100 unit/mL (3 35 units subcut 1000 diabetes 02/05/18 05/10/24 History mL) subcutaneous pen levocetirizine 5 mg tablet 5 mg PO DAILY Check with primary 02/05/18 05/10/24 History doctor mometasone-formoterol HFA 200 2 puff IH DAILY ASTHMA 02/05/18 05/10/24 History mcg-5 mcg/actuation aerosol inhaler montelukast 10 mg tablet 10 mg PO DAILY Check with primary 02/05/18 05/10/24 History doctor multivitamin with iron 1 ea PO DAILY SUPPLEMENT 02/05/18 05/10/24 History pravastatin 20 mg tablet 20 mg PO QHS CHOLESTEROL 02/05/18 05/10/24 History sitagliptin phosphate 100 mg tablet 100 mg PO DAILY DIABETES 02/05/18 05/10/24 History albuterol sulfate 90 mcg/actuation 6.7 g IH Q4H PRN PRN Wheezing 12/08/19 05/10/24 History aerosol inhaler omeprazole 40 mg capsule,delayed 40 mg PO DAILY Check with primary 06/26/20 05/10/24 History release doctor Miralax 1 dose OTHER DAILY Check with 10/30/22 05/10/24 History primary doctor acetaminophen 650 mg tablet 650 mg PO BID Check with primary 10/30/22 05/10/24 History doctor melatonin 10 mg capsule 10 mg PO DAILY Check with primary 10/30/22 05/14/24 History doctor tramadol 50 mg tablet 50 mg PO BID Check with primary 10/30/22 05/10/24 History doctor vortioxetine 10 mg tablet 10 mg PO DAILY Check with primary 10/30/22 05/10/24 History (Trintellix) doctor docusate sodium 100 mg capsule 100 mg PO BID #20 caps 11/13/22 05/10/24 Rx (Colace) oxycodone-acetaminophen 5 mg-325 1 tab PO Q6H PRN pain 7 days #14 11/13/22 01/17/23 Rx mg tablet tabs [id number]-nsucsnkx-tdxylej See Rx Instructions PO .COMPLEX 03/07/23 05/10/24 Rx 36,000-114,000-180,000 unit #1,530 caps capsule,delay rel (Creon) prochlorperazine maleate 10 mg 10 mg PO Q8H PRN nausea and 02/02/24 Rx tablet (Compazine) vomiting #90 tabs sucralfate 100 mg/mL oral 10 ml PO QAC #2,727 mL 02/02/24 05/10/24 Rx suspension amlodipine 10 mg tablet 10 mg PO QDAY 05/10/24 05/10/24 History empagliflozin 25 mg tablet 25 mg PO DAILY 05/10/24 05/10/24 History (Jardiance) furosemide 40 mg tablet 80 mg PO DAILY WATER PILL 05/10/24 05/10/24 History levothyroxine 150 mcg tablet 150 mcg PO QDAY 05/10/24 05/10/24 History linaclotide 290 mcg capsule 290 mcg PO DAILY PRN 05/10/24 05/10/24 History (Linzess) solifenacin 10 mg tablet 10 mg PO QDAY 05/10/24 05/10/24 History Have you fallen in the past year?: Yes PFSH Medical History Hyperlipidemia Pulmonary hypertension Pancreatic insufficiency Hypertension Solitary kidney, acquired CKD (chronic kidne (more content not included)... Normal [facility] Gastroenterology Visit Repor ton 05-07-2024 Gastroenterology Visit Report [facility] [address] [place] [address] OFFICE VISIT Date of Service: 05/07/24 MR#: [id number] Acct: [id number] Name: EVERTON BEATTY Rep #: [id number] : 1945 Provider: Marco Chin DO Age/Sex: 78/F Location: [facility] [place] Status: Signed Intake Vital Signs 01/18/23 12:23 Height 5 ft 3 in Intake Visit Reasons: ongoing issues Allergies telithromycin (From Ketek) Allergy (Severe, Verified 01/17/23 20:50) Nausea/Vom/Diarrhea Penicillins (PCN) Allergy (Verified 01/17/23 20:50) Swelling duloxetine (From Cymbalta) Adverse Reaction (Verified 01/17/23 20:50) Other Have you fallen in the past year?: No PFSH Medical History (Updated 03/06/23 @ 14:21 by Stephanie Senior) Pancreatic insufficiency Hypertension Clear cell carcinoma of left kidney Solitary kidney, acquired CKD (chronic kidney disease) stage 4, GFR 15-29 ml/min Diabetes mellitus, type 2 Bradycardia with 41-50 beats per minute AV junctional rhythm Weight loss, unintentional Wears glasses Diabetes GERD (gastroesophageal reflux disease) Former smoker BiPAP (biphasic positive airway pressure) dependence Hypertension Renal cell carcinoma Rosacea Lipodermatosclerosis Fibromyalgia Cervical spondylosis Psoriatic arthritis Constipation Anemia IBS (irritable bowel syndrome) Asthma Sleep apnea Depression Arthritis History of back problems History of hypothyroidism Surgical History History of nephrectomy, left History of tubal ligation History of cholecystectomy History of hysterectomy history bilateral cataract surgery Family History Grandfather Arthritis Father Diabetes Grandmother Heart disease Hypertension Social History household members: spouse Smoking Status: Former smoker alcohol intake: never substance use type: does not use HPI HPI Details: EVERTON BEATTY, is a 78 F who presents to the office today for follow up. PMH DM 1 with neuropathy; asthma; depression; fibromyalgia; HTN; lipodermatosclerosis; renal cell carcinoma Prior workup EGD and colonoscopy ..20 EGD medium hiatal hernia; reflux esophagitis; erythematous mucosa of stomach, fundic gland polyp tissue (cardia) gastritis (antrum). H.Pylori negative Colonoscopy hemorrhoids; 6mm, 8mm, 10mm TA polyps removed; diverticulosis. Random biopsy without pathologic changes. ? GET 02.07.22 11.1 minutes (12-56). [facility] hospitalization .03.02-11.15.22 for laparoscopic radical nephrectomy to address renal cancer. During this time Dr. Huizar asked if GI could consult for N/V, however she was discharged prior to this happening. *[facility] established 12.09.22 N/V with early satiety starting mid 2020 with worsening in the fall and unintentional weight loss of 100lbs in the last three years with worsening in the last year. ? Biochemical workup CBC (hgb 10.8), ESR, CMP, CRP,ANCA, celiac, IgGAM, MAURI, T3, T4, JOSE comp, antiparietal cell without pertinent abnormality. ? TSH L0.32, IBD suggestive of Crohn???s (ACCA), gastrin H467, IgE H629 ? Stool fecal fat (total increased), elastase L191 ? Start [facility] hospitalization 3.10.02-01.19.23 where she was treated for MICHAEL, junctional rhythm and hyperkalemia. OV 4..23 feels she is doing very well since start of Zenpe[facility] and she is no longer having difficulty with BM, N/V and weight has stabilized. OV 9.14.23 Continues to be feeling much improved since last visit; she has had three episodes of nausea and/or vomiting; feels these were related to constipation which she feels caused hyperkalemia which caused N/V. BM occur typically daily with health evacuation; constipation difficulty is rare for her; MiraLAX and two Colace and Linzess 290mcg PRN and she is happy with her regimen. OV 6..24 pt reports daily nausea and vomiting; first thing when she wakes up she will cough and then vomit. pt reports loosing 12 lbs in the last 2 months. pt reports fecal incontinence while urinating for the past 2-3 weeks; denies blood in the stool. ROS Const Constitutional: Positive for fatigue and weight change (weight gain); No fever(s) ENT ENT: No difficulty swallowing Gastro GI: Positive for abdominal pain, bloating, change in bowel habits, excessive flatus, nausea/dyspepsia and vomiting; No belching, change in stool character, coffee ground emesis, constipation, cramping, diarrhea, heartburn, difficulty swallowing, feeling full early, incontinent of stools, Vomiting (more content not included)... Normal [facility] CBC W/Diff, Automatedon 04-10 Absolute Lymph 1.04 X10 3/uL Normal 0.83-4.51 [facility] Comment on above: Order Comment: Order Date: 04/28/24Order Info: [id number] - CBCD Performed By: #### L 500.3600, L3300.1200, L501.0900 #### [facility] [address] [place], [address] Absolute Neut 3.9 X10 3/uL Normal 2.0-7.7 [facility] Comment on above: Order Comment: Order Date: 04/28/24Order Info: [id number] - CBCD Performed By: #### L 500.3600, L3300.1200, L501.0900 #### [facility] [address] [place], [address] Basophils/100 WBC (Bld) 1.5 % High 0-1 [facility] Comment on above: Order Comment: Order Date: 04/28/24Order Info: [id number] - CBCD Performed By: #### L 500.3600, L3300.1200, L501.0900 #### [facility] [address] [place], [address] Eosinophils/100 WBC (Bld) 8.8 % High 0-5 [facility] Comment on above: Order Comment: Order Date: 04/28/24Order Info: 4-1 - CBCD Performed By: #### L 500.3600, L3300.1200, L501.0900 #### [facility] [address] [place], [address] Erythrocyte distribution width (RBC) [Ratio] 12.2 % Normal 11.6-14.6 [facility] Comment on above: Order Comment: Order Date: 04/28/24Order Info: [id number] - CBCD Performed By: #### L 500.3600, L3300.1200, L501.0900 #### [facility] [address] [place], [address] Hematocrit (Bld) [Volume fraction] 37.9 % Normal 37-47 [facility] Comment on above: Order Comment: Order Date: 04/28/24Order Info: [id number] - CBCD Performed By: #### L 500.3600, L3300.1200, L501.0900 #### [facility] [address] [place], [address] Hemoglobin (Bld) [Mass/Vol] 12.2 g/dL Normal 12.0-15.0 [facility] Comment on above: Order Comment: Order Date: 04/28/24Order Info: [id number] - CBCD Performed By: #### L 500.3600, L3300.1200, L501.0900 #### [facility] [address] [place], [address] IG% 0.300 Normal 0.0-0.9 [facility] Comment on above: Order Comment: Order Date: 04/28/24Order Info: 183- - CBCD Result Comment: IG% - Immature Granulocytes (promyelocytes, myelocytes and metamyelocytes) > 1% indicates that a LEFT SHIFT is Present. Performed By: #### L 500.3600, L3300.1200, L501.0900 #### [facility] [address] [place], [address] Lymphocytes/100 WBC (Bld) 17.3 % Low 19-41 [facility] Comment on above: Order Comment: Order Date: 04/28/24Order Info: 183- - CBCD Performed By: #### L 500.3600, L3300.1200, L501.0900 #### [facility] [address] [place], [address] MCH (RBC) [Entitic mass] 30.1 pg Normal 27.0-32.0 [facility] Comment on above: Order Comment: Order Date: 04/28/24Order Info: [id number]- - CBCD Performed By: #### L 500.3600, L3300.1200, L501.0900 #### [facility] [address] [place], [address] MCHC (RBC) [Mass/Vol] 32.2 g/dL Normal 32-36 [facility] Comment on above: Order Comment: Order Date: 04/28/24Order Info: 018- - CBCD Performed By: #### L 500.3600, L3300.1200, L501.0900 #### [facility] [address] [place], [address] MCV (RBC) [Entitic vol] 93.6 fL Normal 81-99 [facility] Comment on above: Order Comment: Order Date: 04/28/24Order Info: [id number] - CBCD Performed By: #### L 500.3600, L3300.1200, L501.0900 #### [facility] [address] [place], [address] Monocytes/100 WBC (Bld) 7.2 % Normal 0-10 [facility] Comment on above: Order Comment: Order Date: 04/28/24Order Info: [id number] - CBCD Performed By: #### L 500.3600, L3300.1200, L501.0900 #### [facility] [address] [place], [address] Neutrophils/100 WBC (Bld) 64.9 % Normal 47-70 [facility] Comment on above: Order Comment: Order Date: 04/28/24Order Info: [id number] - CBCD Performed By: #### L 500.3600, L3300.1200, L501.0900 #### [facility] [address] [place], [address] Nucleated RBC (Bld) [#/Vol] 0 10*3/uL Normal 0-5 [facility] Comment on above: Order Comment: Order Date: 04/28/24Order Info: [id number] - CBCD Performed By: #### L 500.3600, L3300.1200, L501.0900 #### [facility] [address] [place], [address] Platelet mean volume (Bld) [Entitic vol] 11.4 fL Normal 6.2-12.0 [facility] Comment on above: Order Comment: Order Date: 04/28/24Order Info: [id number] - CBCD Performed By: #### L 500.3600, L3300.1200, L501.0900 #### [facility] [address] [place], [address] Platelets (Bld) [#/Vol] 187 10*3/uL Normal 150-450 [facility] Comment on above: Order Comment: Order Date: 04/28/24Order Info: [id number] - CBCD Performed By: #### L 500.3600, L3300.1200, L501.0900 #### [facility] [address] [place], [address] RBC (Bld) [#/Vol] 4.05 10*6/uL Low 4.2-5.4 [facility] Comment on above: Order Comment: Order Date: 04/28/24Order Info: 018- - CBCD Performed By: #### L 500.3600, L3300.1200, L501.0900 #### [facility] [address] [place], [address] RDW SD 42.3 fl Normal 35.1-43.9 [facility] Comment on above: Order Comment: Order Date: 04/28/24Order Info: 018- - CBCD Performed By: #### L 500.3600, L3300.1200, L501.0900 #### [facility] [address] [place], [address] WBC (Bld) [#/Vol] 6.0 10*3/uL Normal 4.4-11.0 [facility] Comment on above: Order Comment: Order Date: 04/28/24Order Info: 018- - CBCD Performed By: #### L 500.3600, L3300.1200, L501.0900 #### [facility] [address] [place], [address] Comprehensive Metabolic Prof ilon 04-28-2024 Albumin [Mass/Vol] 3.4 g/dL Normal 3.2-5.0 [facility] Comment on above: Order Comment: Order Date: 04/28/24Order Info: [id number] - CMPOrder Info: [id number] - PHOS Performed By: #### L 500.3600, L3300.1200, L501.0900 #### [facility] [address] [place], [address] Albumin/Globulin [Mass ratio] 1.1 {ratio} Normal 0.9-2.4 [facility] Comment on above: Order Comment: Order Date: 04/28/24Order Info: [id number] - CMPOrder Info: [id number] - PHOS Performed By: #### L 500.3600, L3300.1200, L501.0900 #### [facility] [address] [place], [address] ALK P 59 U/L Normal 45-117 [facility] Comment on above: Order Comment: Order Date: 04/28/24Order Info: [id number] - CMPOrder Info: [id number] - PHOS Performed By: #### L 500.3600, L3300.1200, L501.0900 #### [facility] [address] [place], [address] ALT [Catalytic activity/Vol] 18 U/L Normal 13-56 [facility] Comment on above: Order Comment: Order Date: 04/28/24Order Info: [id number] - CMPOrder Info: [id number] - PHOS Performed By: #### L 500.3600, L3300.1200, L501.0900 #### [facility] [address] [place], [address] AST [Catalytic activity/Vol] 17 U/L Normal 15-37 [facility] Comment on above: Order Comment: Order Date: 04/28/24Order Info: [id number] - CMPOrder Info: [id number] - PHOS Performed By: #### L 500.3600, L3300.1200, L501.0900 #### [facility] [address] [place], [address] Bilirubin [Mass/Vol] 0.50 mg/dL Normal 0.20-1.00 [facility] Comment on above: Order Comment: Order Date: 04/28/24Order Info: [id number] - CMPOrder Info: [id number] - PHOS Result Comment: For patients on eltrombopag therapy, use of Dimension [place] TBIL is not recommended. Performed By: #### L 500.3600, L3300.1200, L501.0900 #### [facility] [address] [place], [address] BUN/CRE 12.1 RATIO Normal 10-20 [facility] Comment on above: Order Comment: Order Date: 04/28/24Order Info: [id number] - CMPOrder Info: [id number] - PHOS Performed By: #### L 500.3600, L3300.1200, L501.0900 #### [facility] [address] [place], [address] CA,Total 9.0 mg/dL Normal 8.5-10.1 [facility] Comment on above: Order Comment: Order Date: 04/28/24Order Info: [id number] - CMPOrder Info: [id number] - PHOS Performed By: #### L 500.3600, L3300.1200, L501.0900 #### [facility] [address] [place], [address] Chloride [Moles/Vol] 108 mmol/L High 98-107 [facility] Comment on above: Order Comment: Order Date: 04/28/24Order Info: [id number] - CMPOrder Info: [id number] - PHOS Performed By: #### L 500.3600, L3300.1200, L501.0900 #### [facility] [address] [place], [address] CO2 [Moles/Vol] 24.0 mmol/L Normal 21.0-32.0 [facility] Comment on above: Order Comment: Order Date: 04/28/24Order Info: [id number] - CMPOrder Info: [id number] - PHOS Performed By: #### L 500.3600, L3300.1200, L501.0900 #### [facility] [address] [place], [address] Creatinine [Mass/Vol] 2.32 mg/dL High 0.55-1.02 [facility] Comment on above: Order Comment: Order Date: 04/28/24Order Info: [id number] - CMPOrder Info: [id number] - PHOS Result Comment: The validity of the calculated GFR GFRAA in patients over 70 years has not been determined. Clinical correlation is essential. Performed By: #### L 500.3600, L3300.1200, L501.0900 #### [facility] [address] [place], [address] EST GFR - AA 26 mL/min Low >60 [facility] Comment on above: Order Comment: Order Date: 04/28/24Order Info: [id number] - CMPOrder Info: [id number] - PHOS Result Comment: Afri can [place] GFR Calc Performed By: #### L 500.3600, L3300.1200, L501.0900 #### [facility] [address] [place], [address] GAP 5 Normal 5-15 [facility] Comment on above: Order Comment: Order Date: 04/28/24Order Info: [id number] - CMPOrder Info: [id number] - PHOS Performed By: #### L 500.3600, L3300.1200, L501.0900 #### [facility] [address] [place], [address] GFR/1.73 sq M.predicted among non-blacks MDRD (S/P/Bld) [Vol rate/Area] 22 mL/min/{1.73_m2} Low >60 [facility] Comment on above: Order Comment: Order Date: 04/28/24Order Info: [id number] - CMPOrder Info: [id number] - PHOS Result Comment: Non- GFR Calc Performed By: #### L 500.3600, L3300.1200, L501.0900 #### [facility] [address] [place], [address] Globulin (S) [Mass/Vol] 3.2 g/dL Normal 2.2-4.2 [facility] Comment on above: Order Comment: Order Date: 04/28/24Order Info: [id number] - CMPOrder Info: 277- - PHOS Performed By: #### L 500.3600, L3300.1200, L501.0900 #### [facility] [address] [place], [address] Glucose [Mass/Vol] 94 mg/dL Normal 74-106 [facility] Comment on above: Order Comment: Order Date: 04/28/24Order Info: [id number]- - CMPOrder Info: 277- - PHOS Performed By: #### L 500.3600, L3300.1200, L501.0900 #### [facility] [address] [place], [address] Potassium [Moles/Vol] 5.0 mmol/L Normal 3.5-5.1 [facility] Comment on above: Order Comment: Order Date: 04/28/24Order Info: [id number]- - CMPOrder Info: 277- - PHOS Performed By: #### L 500.3600, L3300.1200, L501.0900 #### [facility] [address] [place], [address] Sodium [Moles/Vol] 137 mmol/L Normal 136-145 [facility] Comment on above: Order Comment: Order Date: 04/28/24Order Info: 07-1 - CMPOrder Info: 277- - PHOS Performed By: #### L 500.3600, L3300.1200, L501.0900 #### [facility] [address] [place], [address] T PROT 6.6 g/dL Normal 6.4-8.2 [facility] Comment on above: Order Comment: Order Date: 04/28/24Order Info: [id number] - CMPOrder Info: [id number] - PHOS Performed By: #### L 500.3600, L3300.1200, L501.0900 #### [facility] [address] [place], [address] Urea nitrogen [Mass/Vol] 28 mg/dL High 7-18 [facility] Comment on above: Order Comment: Order Date: 04/28/24Order Info: [id number] - CMPOrder Info: [id number] - PHOS Performed By: #### L 500.3600, L3300.1200, L501.0900 #### [facility] [address] [place], [address] Hemoglobin A1con 04-28-2024 HbA1c (Bld) [Mass fraction] 5.7 % High 3.8-5.6 [facility] Comment on above: Order Comment: Order Date: 04/28/24Order Info: [id number] - A1C Result Comment: Norm al < 5.7 % Prediabetic 5.7 - 6.4 % Diabetic >or= 6.5 % Please note range changes. Performed By: #### L 500.3600, L3300.1200, L501.0900 #### [facility] [address] [place], [address] PTHINon 04-28-2024 PTH 88.9 pg/mL High 18.4-80.1 [facility] Comment on above: Order Comment: Order Date: 04/28/24Order Info: [id number] - PTHIN Performed By: #### L 500.3600, L3300.1200, L501.0900 #### [facility] [address] [place], [address] Phosphoruson 04-28-2024 Phosphate [Mass/Vol] 3.4 mg/dL Normal 2.5-4.9 [facility] Comment on above: Order Comment: Order Date: 04/28/24Order Info: [id number] - CMPOrder Info: [id number] - PHOS Performed By: #### L 500.3600, L3300.1200, L501.0900 #### [facility] [address] [place], [address] Vitamin D,25 Hydroxyon 04-28 Vitamin D 25-OH 45.9 ng/mL Normal [facility] Comment on above: Order Comment: Order Date: 04/28/24Order Info: [id number] - [id number] Result Comment: Anne min D 25(OH) Status Range Deficiency <20 ng/mL (50nmol/L) Insufficiency 20 - 30 ng/mL (50 - 75 nmol/L) Sufficiency 30 - 100 ng/mL (75 - 250 nmol/L) Toxicity >100 ng/mL (>250 nmol/L) Performed By: #### L 500.3600, L3300.1200, L501.0900 #### [facility] [address] [place], [address] Basophil percentageOrdered B y: Duarte Espinal on 02-19-2024 Chloride [Moles/Vol] 108 mmol/L 98-107 [facility] Glucose [Mass/Vol] 135 mg/dL 74-106 [facility] Comment on above: Fasting Glucose resu lt greater than or equal to 126 mg/dL suggests DIABETES MELLITUS per A.D.A. criteria. Potassium [Moles/Vol] 4.4 mmol/L 3.5-5.1 [facility] Sodium [Moles/Vol] 137 mmol/L 136-145 [facility] - Chemistry and C hemistry - challengeOrdered By: Duarte Espinal on 02-19-2024 CO2 [Moles/Vol] 27.0 mmol/L 21.0-32.0 [facility] Urea nitrogen/Creatinine [Mass ratio] 14.9 mg/mg - [facility] - Drug toxicology Ordered By: Duarte Espinal on 02-19-2024 Amphetamines Ql (U) Negative <1000 ng/mL [facility] Benzodiazepines Ql (U) Negative < 200 ng/mL [facility] Cannabinoids Screen Ql (U) Negative < 50 ng/mL [facility] Cocaine Ql (U) Negative < 300 ng/mL [facility] Opiates Ql (U) Negative < 300 ng/mL [facility] No Panel InformationOrdered By: Duarte Espinal on 02-19-2024 Estimated GFR (MDRD) Amer 31 mL/min >60 [facility] Comment on above: GFR Calc Estimated GFR (MDRD) Non-Af Amer 26 mL/min >60 [facility] Comment on above: Non- GFR Calc MDMA (Ecstasy) Screen Negative < 500 ng/mL [facility] Urine Barbiturates Screen Negative < 200 ng/mL [facility] Urine Drug Screen Comment [facility] Comment on above: CONFIRMATORY TESTING FOR ALL POSITIVE URINE DRUG SCREENRESULTS WILL ONLY BE SENT OUT UPON PHYSICIAN ORDER. VISTA Urine Drug Screen methods provide only preliminaryanalytical test results. A more specific alternate chemicalmethod must be used in order to obtain a confirmedanalytical result. Gas chromatography/mass spectrometery(GC/MS) is the preferred confirmatory method. Clinicalconsideration and professional judgement should be appliedto any drug of abuse test result, particularly whenpreliminary positive results are used. URINE TCA TESTING MUST BE ORDERED SEPARATELY. USE TESTMNEMONIC: [facility] Urine Methadone Screen Negative < 300 ng/mL [facility] Serum or plasma calcium noemi urement (mass/volume)Ordered By: Duarte Espinal on 02-19-2024 Calcium [Mass/Vol] 8.7 mg/dL 8.5-10.1 [facility] Serum or plasma creatinine m easurement (mass/volume)Ordered By: Duarte Espinal on 02-19-2024 Creatinine [Mass/Vol] 2.01 mg/dL 0.55-1.02 [facility] Comment on above: The validity of the calculated GFR & GFRAA in patients over 70 years has not been determined. Clinical correlation is essential. Serum or plasma urea nitroge n measurement (mass/volume)Ordered By: Duarte Espinal on 02-19-2024 Urea nitrogen [Mass/Vol] 30 mg/dL 7-18 [facility] Thin prep Papanicolaou smear with manual screeningOrdered By: Duarte Espinal on 02-19-2024 Protein (U) [Mass/Vol] 61.4 mg/dL 0.0-11.8 [facility] Thin prep Papanicolaou smear with manual screening 2 5-15 [facility] Urine creatinine measurement (mass/volume)Ordered By: Duarte Espinal on 02-19-2024 Creatinine (U) [Mass/Vol] 38.20 mg/dL NO RANGE EST. [facility] Urine phencyclidine (PCP) de tectionOrdered By: Duarte Espinal on 02-19-2024 Phencyclidine Ql (U) Negative < 25 ng/mL [facility] Urine protein/creatinine mas s ratioOrdered By: Duarte Espinal on 02-19-2024 Protein/Creatinine (U) [Mass ratio] 1607 mg/g CRE 0-200 [facility] Absolute lymphocyte countOrd ered By: Marta Koehler on 02-13-2024 Lymphocytes Auto (Unsp spec) [#/Vol] 1.09 10*3/uL 0.83-4.51 [facility] Automated lymphocyte count a s percentage of total leukocytesOrdered By: Marta Koehler on 02-13-2024 Lymphocytes/100 WBC Auto (Unsp spec) 15.8 % 19-41 [facility] Basophil percentageOrdered B y: Marta Koehler on 02-13-2024 Basophil percentage 2.8 mg/dL 2.5-4.9 [facility] Basophils/100 WBC (Bld) 1.9 % 0-1 [facility] Bilirubin [Mass/Vol] 0.50 mg/dL 0.20-1.00 [facility] Comment on above: For patients on eltr ombopag therapy, use of Dimension [place] TBIL is not recommended. Chloride [Moles/Vol] 109 mmol/L 98-107 [facility] Eosinophils/100 WBC (Bld) 7.1 % 0-5 [facility] Glucose [Mass/Vol] 139 mg/dL 74-106 [facility] Comment on above: Fasting Glucose resu lt greater than or equal to 126 mg/dL suggests DIABETES MELLITUS per A.D.A. criteria. Hemoglobin (Bld) [Mass/Vol] 11.8 g/dL 12.0-15.0 [facility] Monocytes/100 WBC (Bld) 8.2 % 0-10 [facility] Neutrophils (Bld) [#/Vol] 4.6 10*3/uL 2.0-7.7 [facility] Neutrophils/100 WBC (Bld) 66.6 % 47-70 [facility] Potassium [Moles/Vol] 4.6 mmol/L 3.5-5.1 [facility] Protein [Mass/Vol] 6.3 g/dL 6.4-8.2 [facility] Sodium [Moles/Vol] 139 mmol/L 136-145 [facility] WBC (Bld) [#/Vol] 6.9 10*3/uL 4.4-11.0 [facility] Determination of erythrocyte mean corpuscular volume (MCV)Ordered By: Marta Koehler on 02-13-2024 MCV (RBC) [Entitic vol] 93.0 fL 81-99 [facility] Erythrocyte distribution wid th ratioOrdered By: Marta Koehler on 02-13-2024 Erythrocyte distribution width (RBC) [Ratio] 13.6 % 11.6-14.6 [facility] Erythrocyte distribution wid th standard deviationOrdered By: Marta Koehler on 02-13-2024 Erythrocyte distribution width (RBC) [Entitic vol] 46.5 fL 35.1-43.9 [facility] Hematocrit Auto (Bld) [Volum e fraction]Ordered By: Marta Koehler on 02-13-2024 Hematocrit (Bld) [Volume fraction] 37.3 % 37-47 [facility] Immature granulocytes/100 WB C Auto (Bld)Ordered By: Marta Koehler on 02-13-2024 Immature granulocytes/100 WBC (Bld) 0.400 % 0.0-0.9 [facility] Comment on above: IG% - Immature Granu locytes (promyelocytes, myelocytes and metamyelocytes) > 1% indicates that a LEFT SHIFT is Present. Laboratory - Chemistry and C hemistry - challengeOrdered By: Marta Koehler on 02-13-2024 Albumin/Globulin [Mass ratio] 0.9 {ratio} 0.9-2.4 [facility] ALP [Catalytic activity/Vol] 63 U/L 45-117 [facility] ALT [Catalytic activity/Vol] 25 U/L 13-56 [facility] CO2 [Moles/Vol] 26.0 mmol/L 21.0-32.0 [facility] Globulin (S) [Mass/Vol] 3.3 g/dL 2.2-4.2 [facility] Urea nitrogen/Creatinine [Mass ratio] 13.2 mg/mg 10-20 [facility] - Hematology and Cell countsOrdered By: Marta Koehler on 02-13-2024 MCH (RBC) [Entitic mass] 29.4 pg 27.0-32.0 [facility] MCHC (RBC) [Mass/Vol] 31.6 g/dL 32-36 [facility] Nucleated RBC/100 WBC (Bld) [Ratio] 0 % 0-5 [facility] Platelet mean volume (Bld) [Entitic vol] 11.7 fL 6.2-12.0 [facility] Platelets (Bld) [#/Vol] 182 10*3/uL 150-450 [facility] No Panel InformationOrdered By: Marta Koehler on 02-13-2024 Estimated GFR (MDRD) Amer 30 mL/min >60 [facility] Comment on above: GFR Calc Estimated GFR (MDRD) Non-Af Amer 25 mL/min >60 [facility] Comment on above: Non- GFR Calc Parathyroid Hormone (Intact) 183.0 pg/mL 18.4-80.1 [facility] Vitamin D 25-Hydroxy 55.7 ng/mL [facility] Comment on above: Vitamin D 25(OH) Sta tus Range Deficiency <20 ng/mL (50nmol/L) Insufficiency 20 - 30 ng/mL (50 - 75 nmol/L) Sufficiency 30 - 100 ng/mL (75 - 250 nmol/L) Toxicity >100 ng/mL (>250 nmol/L) RBC Auto (Bld) [#/Vol]Ordere d By: Marta Koehler on 02-13-2024 RBC (Bld) [#/Vol] 4.01 10*6/uL 4.2-5.4 [facility] Serum or plasma calcium noemi urement (mass/volume)Ordered By: Marta Koehler on 02-13-2024 Calcium [Mass/Vol] 8.4 mg/dL 8.5-10.1 [facility] Serum or plasma creatinine m easurement (mass/volume)Ordered By: Marta Koehler on 02-13-2024 Creatinine [Mass/Vol] 2.05 mg/dL 0.55-1.02 [facility] Comment on above: The validity of the calculated GFR & GFRAA in patients over 70 years has not been determined. Clinical correlation is essential. Serum or plasma thyroid stim ulating hormone (TSH) measurement (units/volume)Ordered By: Marta Koehler on 02-13-2024 TSH Qn 1.96 uIU/mL 0.358-3.74 [facility] Serum or plasma urea nitroge n measurement (mass/volume)Ordered By: Marta Koehler on 02-13-2024 Urea nitrogen [Mass/Vol] 27 mg/dL 7-18 [facility] Thin prep Papanicolaou smear with manual screeningOrdered By: Marta Koehler on 02-13-2024 Thin prep Papanicolaou smear with manual screening 3.0 g/dL 3.2-5.0 [facility] Thin prep Papanicolaou smear with manual screening 20 U/L 15-37 [facility] Thin prep Papanicolaou smear with manual screening 4 5-15 [facility] Thin prep Papanicolaou smear with manual screening 1.06 ng/dL 0.76-1.46 [facility] Whole blood hemoglobin A1c/t otal hemoglobin ratio (mass fraction)Ordered By: aMrta Koehler on 02-13-2024 HbA1c (Bld) [Mass fraction] 5.7 % 3.8-5.6 [facility] Comment on above: Normal < 5.7 % Predi abetic 5.7 - 6.4 % Diabetic >or= 6.5 % Please note range changes. Basophil percentageOrdered B y: Matty Huizar on 01-23-2024 Creatinine [Mass/Vol] 1.5 mg/dL 0.55-1.02 [facility] Bilirubin [Mass/Vol] 0.50 mg/dL 0.20-1.00 [facility] Comment on above: For patients on eltr ombopag therapy, use of Dimension [place] TBIL is not recommended. Chloride [Moles/Vol] 109 mmol/L 98-107 [facility] Glucose [Mass/Vol] 87 mg/dL 74-106 [facility] Hemoglobin (Bld) [Mass/Vol] 12.2 g/dL 12.0-15.0 [facility] Potassium [Moles/Vol] 4.8 mmol/L 3.5-5.1 [facility] Protein [Mass/Vol] 5.9 g/dL 6.4-8.2 [facility] Sodium [Moles/Vol] 140 mmol/L 136-145 [facility] WBC (Bld) [#/Vol] 5.7 10*3/uL 4.4-11.0 [facility] Determination of erythrocyte mean corpuscular volume (MCV)Ordered By: Matty Huizar on 01-23-2024 MCV (RBC) [Entitic vol] 92.0 fL 81-99 [facility] Erythrocyte distribution wid th ratioOrdered By: Va Hospitalano on 01-23-2024 Erythrocyte distribution width (RBC) [Ratio] 13.7 % 11.6-14.6 [facility] Erythrocyte distribution wid th standard deviationOrdered By: Matty Huizar on 01-23-2024 Erythrocyte distribution width (RBC) [Entitic vol] 46.2 fL 35.1-43.9 [facility] Hematocrit Auto (Bld) [Volum e fraction]Ordered By: Matty Huizar on 01-23-2024 Hematocrit (Bld) [Volume fraction] 37.7 % 37-47 [facility] Laboratory - Chemistry and C hemistry - challengeOrdered By: Matty Huizar on 01-23-2024 GFR/1.73 sq M.predicted among non-blacks MDRD (S/P/Bld) [Vol rate/Area] 35.0000 mL/min/{1.73_m2} >60 [facility] Albumin/Globulin [Mass ratio] 1.4 {ratio} 0.9-2.4 [facility] ALP [Catalytic activity/Vol] 67 U/L 45-117 [facility] ALT [Catalytic activity/Vol] 33 U/L 13-56 [facility] CO2 [Moles/Vol] 27.0 mmol/L 21.0-32.0 [facility] Globulin (S) [Mass/Vol] 2.5 g/dL 2.2-4.2 [facility] Urea nitrogen/Creatinine [Mass ratio] 16.4 mg/mg 10-20 [facility] Laboratory - Drug toxicology Ordered By: Matty Huizar on 01-23-2024 Amphetamines Ql (U) Negative <1000 ng/mL [facility] Benzodiazepines Ql (U) Negative < 200 ng/mL [facility] Cannabinoids Screen Ql (U) Negative < 50 ng/mL [facility] Cocaine Ql (U) Negative < 300 ng/mL [facility] Opiates Ql (U) Negative < 300 ng/mL [facility] Laboratory - Hematology and Cell countsOrdered By: Matty Huizar on 01-23-2024 MCH (RBC) [Entitic mass] 29.8 pg 27.0-32.0 [facility] MCHC (RBC) [Mass/Vol] 32.4 g/dL 32-36 [facility] Platelet mean volume (Bld) [Entitic vol] 11.5 fL 6.2-12.0 [facility] Platelets (Bld) [#/Vol] 178 10*3/uL 150-450 [facility] No Panel InformationOrdered By: Matty Huizar on 01-23-2024 Estimated GFR (MDRD) Amer 27 mL/min >60 [facility] Comment on above: GFR Calc Estimated GFR (MDRD) Non-Af Amer 22 mL/min >60 [facility] Comment on above: Non- GFR Calc MDMA (Ecstasy) Screen Negative < 500 ng/mL [facility] Miscellaneous Test See comment [facility] Comment on above: TEST RESULTS LIMITST ramadol Positive [id number] Tramadol Conf, [place], UR >[id number] TESTING PERFORMED AT [facility]. ORIGINAL REPORT ON FILE IN LAB CONTAINS ADDITIONAL TEST SITE INFORMATION. Urine Barbiturates Screen Negative < 200 ng/mL [facility] Urine Drug Screen Comment [facility] Comment on above: CONFIRMATORY TESTING FOR ALL POSITIVE URINE DRUG SCREENRESULTS WILL ONLY BE SENT OUT UPON PHYSICIAN ORDER. VISTA Urine Drug Screen methods provide only preliminaryanalytical test results. A more specific alternate chemicalmethod must be used in order to obtain a confirmedanalytical result. Gas chromatography/mass spectrometery(GC/MS) is the preferred confirmatory method. Clinicalconsideration and professional judgement should be appliedto any drug of abuse test result, particularly whenpreliminary positive results are used. URINE TCA TESTING MUST BE ORDERED SEPARATELY. USE TESTMNEMONIC: [facility] Urine Methadone Screen Negative < 300 ng/mL [facility] RBC Auto (Bld) [#/Vol]Ordere d By: Matty Huizar on 01-23-2024 RBC (Bld) [#/Vol] 4.10 10*6/uL 4.2-5.4 [facility] Serum or plasma calcium noemi urement (mass/volume)Ordered By: Matty Huizar on 01-23-2024 Calcium [Mass/Vol] 8.5 mg/dL 8.5-10.1 [facility] Serum or plasma creatinine m easurement (mass/volume)Ordered By: Matty Huizar on 01-23-2024 Creatinine [Mass/Vol] 2.25 mg/dL 0.55-1.02 [facility] Comment on above: The validity of the calculated GFR & GFRAA in patients over 70 years has not been determined. Clinical correlation is essential. Serum or plasma urea nitroge n measurement (mass/volume)Ordered By: Matty Huizar on 01-23-2024 Urea nitrogen [Mass/Vol] 37 mg/dL 7-18 [facility] Thin prep Papanicolaou smear with manual screeningOrdered By: Matty Huizar on 01-23-2024 Protein (U) [Mass/Vol] 37.6 mg/dL 0.0-11.8 [facility] Thin prep Papanicolaou smear with manual screening 3.4 g/dL 3.2-5.0 [facility] Thin prep Papanicolaou smear with manual screening 22 U/L 15-37 [facility] Thin prep Papanicolaou smear with manual screening 4 5-15 [facility] Urine creatinine measurement (mass/volume)Ordered By: Matty Huizar on 01-23-2024 Creatinine (U) [Mass/Vol] 73.50 mg/dL NO RANGE EST. [facility] Urine phencyclidine (PCP) de tectionOrdered By: Matty Huizar on 01-23-2024 Phencyclidine Ql (U) Negative < 25 ng/mL [facility] Urine protein/creatinine mas s ratioOrdered By: Matty Huizar on 01-23-2024 Protein/Creatinine (U) [Mass ratio] 512 mg/g CRE 0-200 [facility] Basophil percentageOrdered B y: Pasha Vargas on 11-05-2023 Basophil percentage 4.2 mg/dL 2.5-4.9 [facility] Chloride [Moles/Vol] 111 mmol/L 98-107 [facility] Glucose [Mass/Vol] 210 mg/dL 74-106 [facility] Comment on above: Glucose result great er than or equal to 200 mg/dLsuggests DIABETES MELLITUS per A.D.A. criteria. Potassium [Moles/Vol] 4.9 mmol/L 3.5-5.1 [facility] Sodium [Moles/Vol] 140 mmol/L 136-145 [facility] WBC (Bld) [#/Vol] 7.2 10*3/uL 4.4-11.0 [facility] Blood erythrocytes count (nu mber/volume)Ordered By: Pasha Vargas on 11-05-2023 RBC (Bld) [#/Vol] 3.71 10*6/uL 4.2-5.4 [facility] Blood hemoglobin measurement (mass/volume)Ordered By: Pasha Vargas on 11-05-2023 Hemoglobin (Bld) [Mass/Vol] 10.6 g/dL 12.0-15.0 [facility] Blood platelet mean volumeOr dered By: Pasha Vargas on 11-05-2023 Platelet mean volume (Bld) [Entitic vol] 11.4 fL 6.2-12.0 [facility] Determination of erythrocyte mean corpuscular volume (MCV)Ordered By: Pasha Vargas on 11-05-2023 MCV (RBC) [Entitic vol] 91.1 fL 81-99 [facility] Hematocrit Auto (Bld) [Volum e fraction]Ordered By: Pasha Vargas on 11-05-2023 Hematocrit (Bld) [Volume fraction] 33.8 % 37-47 [facility] - Chemistry and C hemistry - challengeOrdered By: Pasha Vargas on 11-05-2023 CO2 [Moles/Vol] 22.0 mmol/L 21.0-32.0 [facility] Urea nitrogen/Creatinine [Mass ratio] 13.9 mg/mg 10-20 [facility] - Hematology and Cell countsOrdered By: Pasha Vargas on 11-05-2023 Erythrocyte distribution width (RBC) [Entitic vol] 44.7 fL 35.1-43.9 [facility] Erythrocyte distribution width (RBC) [Ratio] 13.4 % 11.6-14.6 [facility] MCH (RBC) [Entitic mass] 28.6 pg 27.0-32.0 [facility] MCHC Auto (RBC) [Mass/Vol]Or dered By: Pasha Vargas on 11-05-2023 MCHC (RBC) [Mass/Vol] 31.4 g/dL 32-36 [facility] No Panel InformationOrdered By: Pasha Vargas on 11-05-2023 Estimated GFR (MDRD) Amer 27 mL/min >60 [facility] Comment on above: GFR Calc Estimated GFR (MDRD) Non-Af Amer 23 mL/min >60 [facility] Comment on above: Non- GFR Calc Parathyroid Hormone (Intact) 112.5 pg/mL 18.4-80.1 [facility] Vitamin D 25-Hydroxy 53.2 ng/mL [facility] Comment on above: Vitamin D 25(OH) Sta tus Range Deficiency <20 ng/mL (50nmol/L) Insufficiency 20 - 30 ng/mL (50 - 75 nmol/L) Sufficiency 30 - 100 ng/mL (75 - 250 nmol/L) Toxicity >100 ng/mL (>250 nmol/L) Platelets bldOrdered By: Christopher Vargas on 11-05-2023 Platelets (Bld) [#/Vol] 200 10*3/uL 150-450 [facility] Serum or plasma albumin noemi urement (mass/volume)Ordered By: Pasha Vargas on 11-05-2023 Albumin [Mass/Vol] 3.1 g/dL 3.2-5.0 [facility] Serum or plasma calcium noemi urement (mass/volume)Ordered By: Pasha Vargas on 11-05-2023 Calcium [Mass/Vol] 8.4 mg/dL 8.5-10.1 [facility] Serum or plasma creatinine m easurement (mass/volume)Ordered By: Pasha Vargas on 11-05-2023 Creatinine [Mass/Vol] 2.23 mg/dL 0.55-1.02 [facility] Comment on above: The validity of the calculated GFR & GFRAA in patients over 70 years has not been determined. Clinical correlation is essential. Serum or plasma urea nitroge n measurement (mass/volume)Ordered By: Pasha Vargas on 11-05-2023 Urea nitrogen [Mass/Vol] 31 mg/dL 7-18 [facility] Urine creatinine measurement (mass/volume)Ordered By: Pasha Vargas on 11-05-2023 Creatinine (U) [Mass/Vol] 63.80 mg/dL NO RANGE EST. [facility] Urine protein measurement (m ass/volume)Ordered By: Pasha Vargas on 11-05-2023 Protein (U) [Mass/Vol] 89.5 mg/dL 0.0-11.8 [facility] Urine protein/creatinine mas s ratioOrdered By: Pasha Vargas on 11-05-2023 Protein/Creatinine (U) [Mass ratio] 1403 mg/g CRE 0-200 [facility] No Panel InformationOrdered By: Marta Koehler on 10-10-2023 Urine Microalbumin/Creatinine Ratio 1099.1 mg/g CRE <30 [facility] Thin prep Papanicolaou smear with manual screeningOrdered By: Marta Koehler on 10-10-2023 Thin prep Papanicolaou smear with manual screening 1220.0 mg/L NO RANGE EST. [facility] Urine creatinine measurement (mass/volume)Ordered By: Marta Koehler on 10-10-2023 Creatinine (U) [Mass/Vol] 111.00 mg/dL NO RANGE EST. [facility] Absolute lymphocyte countOrd ered By: Marta Koehler on 10-09-2023 Lymphocytes Auto (Unsp spec) [#/Vol] 1.06 10*3/uL 0.83-4.51 [facility] Basophil percentageOrdered B y: Marta Koehler on 10-09-2023 Basophils/100 WBC (Bld) 1.8 % 0-1 [facility] Bilirubin [Mass/Vol] 0.40 mg/dL 0.20-1.00 [facility] Comment on above: For patients on eltr ombopag therapy, use of Dimension [place] TBIL is not recommended. Chloride [Moles/Vol] 109 mmol/L 98-107 [facility] Cholesterol [Mass/Vol] 125 mg/dL <200 [facility] Comment on above: <200 mg/dL Desirable 200-240 mg/dL Borderline >240 mg/dL High Risk Eosinophils/100 WBC (Bld) 8.3 % 0-5 [facility] Glucose [Mass/Vol] 96 mg/dL 74-106 [facility] Neutrophils (Bld) [#/Vol] 4.2 10*3/uL 2.0-7.7 [facility] Neutrophils/100 WBC (Bld) 64.2 % 47-70 [facility] Potassium [Moles/Vol] 4.9 mmol/L 3.5-5.1 [facility] Protein [Mass/Vol] 6.6 g/dL 6.4-8.2 [facility] Sodium [Moles/Vol] 140 mmol/L 136-145 [facility] Triglyceride [Mass/Vol] 84 mg/dL <199 [facility] Comment on above: The drugs N-Acetylcy steine and Metamizole may falsely depress this assay.Serum Triglycerides Reference Interval Normal <150 mg/dL Borderline high 150 - 199 mg/dL High 200 - 499 mg/dL Very High > or = 500 mg/dL WBC (Bld) [#/Vol] 6.5 10*3/uL 4.4-11.0 [facility] Blood erythrocytes count (nu mber/volume)Ordered By: Marta Koehler on 10-09-2023 RBC (Bld) [#/Vol] 3.81 10*6/uL 4.2-5.4 [facility] Blood hemoglobin measurement (mass/volume)Ordered By: Marta Koehler on 10-09-2023 Hemoglobin (Bld) [Mass/Vol] 10.9 g/dL 12.0-15.0 [facility] Blood lymphocytes/100 leukoc ytesOrdered By: Marta Koehler on 10-09-2023 Lymphocytes/100 WBC (Bld) 16.2 % 19-41 [facility] Blood monocytes/100 leukocyt esOrdered By: Marta Koehler on 10-09-2023 Monocytes/100 WBC (Bld) 9.2 % 0-10 [facility] Blood platelet mean volumeOr dered By: Marta Koehler on 10-09-2023 Platelet mean volume (Bld) [Entitic vol] 11.4 fL 6.2-12.0 [facility] Determination of erythrocyte mean corpuscular volume (MCV)Ordered By: Marta Koehler on 10-09-2023 MCV (RBC) [Entitic vol] 91.6 fL 81-99 [facility] Hematocrit Auto (Bld) [Volum e fraction]Ordered By: Marta Koehler on 10-09-2023 Hematocrit (Bld) [Volume fraction] 34.9 % 37-47 [facility] - Chemistry and C hemistry - challengeOrdered By: Marta Koehler on 10-09-2023 ALP [Catalytic activity/Vol] 75 U/L 45-117 [facility] ALT [Catalytic activity/Vol] 18 U/L 13-56 [facility] CO2 [Moles/Vol] 24.0 mmol/L 21.0-32.0 [facility] Free T4 [Mass/Vol] 1.28 ng/dL 0.76-1.46 [facility] Globulin (S) [Mass/Vol] 3.5 g/dL 2.2-4.2 [facility] Urea nitrogen/Creatinine [Mass ratio] 14.6 mg/mg 10-20 [facility] - Hematology and Cell countsOrdered By: Marta Koehler on 10-09-2023 Erythrocyte distribution width (RBC) [Entitic vol] 43.3 fL 35.1-43.9 [facility] Erythrocyte distribution width (RBC) [Ratio] 12.9 % 11.6-14.6 [facility] Immature granulocytes/100 WBC (Bld) 0.300 % 0.0-0.9 [facility] Comment on above: IG% - Immature Granu locytes (promyelocytes, myelocytes and metamyelocytes) > 1% indicates that a LEFT SHIFT is Present. MCH (RBC) [Entitic mass] 28.6 pg 27.0-32.0 [facility] Nucleated RBC/100 WBC (Bld) [Ratio] 0 % 0-5 [facility] MCHC Auto (RBC) [Mass/Vol]Or dered By: Marta Koehler on 10-09-2023 MCHC (RBC) [Mass/Vol] 31.2 g/dL 32-36 [facility] No Panel InformationOrdered By: Marta Koehler on 10-09-2023 Estimated GFR (MDRD) Amer 30 mL/min >60 [facility] Comment on above: GFR Calc Estimated GFR (MDRD) Non-Af Amer 25 mL/min >60 [facility] Comment on above: Non- GFR Calc Thyroid Stimulating Hormone (TSH) 2.08 uIU/mL 0.358-3.74 [facility] Vitamin D 25-Hydroxy 48.8 ng/mL [facility] Comment on above: Vitamin D 25(OH) Sta tus Range Deficiency <20 ng/mL (50nmol/L) Insufficiency 20 - 30 ng/mL (50 - 75 nmol/L) Sufficiency 30 - 100 ng/mL (75 - 250 nmol/L) Toxicity >100 ng/mL (>250 nmol/L) Platelets bldOrdered By: Daniel Koehler on 10-09-2023 Platelets (Bld) [#/Vol] 205 10*3/uL 150-450 [facility] Serum or plasma albumin noemi urement (mass/volume)Ordered By: Marta Koehler on 10-09-2023 Albumin [Mass/Vol] 3.1 g/dL 3.2-5.0 [facility] Serum or plasma albumin/glob ulin mass ratioOrdered By: Marta Koehler on 10-09-2023 Albumin/Globulin [Mass ratio] 0.9 {ratio} 0.9-2.4 [facility] Serum or plasma calcium noemi urement (mass/volume)Ordered By: Marta Koehler on 10-09-2023 Calcium [Mass/Vol] 8.6 mg/dL 8.5-10.1 [facility] Serum or plasma cholesterol in HDL measurement (mass/volume)Ordered By: Marta Koehler on 10-09-2023 Cholesterol in HDL [Mass/Vol] 53 mg/dL >40 [facility] Comment on above: The drugs N-Acetylcy steine and Metamizole may falsely depress this assay. Reference Range HDL <40 mg/dL Low HDL Cholesterol HDL >or= 60 mg/dL High HDL Cholesterol Serum or plasma cholesterol in VLDL measurement (mass/volume)Ordered By: Marta Koehler on 10-09-2023 Cholesterol in VLDL [Mass/Vol] 17 mg/dL 5-40 [facility] Serum or plasma creatinine m easurement (mass/volume)Ordered By: Marta Koehler on 10-09-2023 Creatinine [Mass/Vol] 2.06 mg/dL 0.55-1.02 [facility] Comment on above: The validity of the calculated GFR & GFRAA in patients over 70 years has not been determined. Clinical correlation is essential. Serum or plasma low density lipoprotein (LDL) cholesterol measurement (mass/volume)Ordered By: Marta Koehler on 10-09-2023 Cholesterol in LDL [Mass/Vol] 55 mg/dL 0-130 [facility] Serum or plasma urea nitroge n measurement (mass/volume)Ordered By: Marta Koehler on 10-09-2023 Urea nitrogen [Mass/Vol] 30 mg/dL 7-18 [facility] Thin prep Papanicolaou smear with manual screeningOrdered By: Marta Koehler on 10-09-2023 Thin prep Papanicolaou smear with manual screening 18 U/L 15-37 [facility] Thin prep Papanicolaou smear with manual screening 7 5-15 [facility] Whole blood hemoglobin A1c/t otal hemoglobin ratio (mass fraction)Ordered By: Marta Koehler on 10-09-2023 HbA1c (Bld) [Mass fraction] 5.7 % 3.8-5.6 [facility] Comment on above: Normal < 5.7 % Predi abetic 5.7 - 6.4 % Diabetic >or= 6.5 % Please note range changes. Basophil percentageOrdered B y: Marta Koehler on 08-01-2023 Potassium [Moles/Vol] 4.4 mmol/L 3.5-5.1 [facility] Culture, urineOrdered By: Nathalie Huizar on 07-29-2023 Bacteria identified Cx Nom (U) Escherichia coli [facility] Basophil percentageOrdered B y: Pasha Vargas on 07-01-2023 Chloride [Moles/Vol] 110 mmol/L 98-107 [facility] Glucose [Mass/Vol] 191 mg/dL 74-106 [facility] Comment on above: Fasting Glucose resu lt greater than or equal to 126 mg/dL suggests DIABETES MELLITUS per A.D.A. criteria. Potassium [Moles/Vol] 4.7 mmol/L 3.5-5.1 [facility] Sodium [Moles/Vol] 141 mmol/L 136-145 [facility] Laboratory - Chemistry and C hemistry - challengeOrdered By: Pasha Vargas on 07-01-2023 CO2 [Moles/Vol] 24.0 mmol/L 21.0-32.0 [facility] Urea nitrogen/Creatinine [Mass ratio] 19.0 mg/mg 10- [facility] No Panel InformationOrdered By: Pasha Vargas on 07-01-2023 Estimated GFR (MDRD) Amer 26 mL/min >60 [facility] Comment on above: GFR Calc Estimated GFR (MDRD) Non-Af Amer 22 mL/min >60 [facility] Comment on above: Non- GFR Calc Miscellaneous Test See comment [facility] Comment on above: TEST RESULT LIMITSAn ti-PR3 Antibodies <0.2 units 0.0-0.9 ____ TESTING PERFORMED AT [facility]. ORIGINAL REPORT ON FILE IN LAB CONTAINS ADDITIONAL TEST SITE INFORMATION. TEST RESULTS LIMITSM yeloperoxidase (MPO) 2012 High pmol/L Low CVD Risk <470 Moderate Risk 470-539 High Risk >539 _ TESTING PERFORMED AT [facility]. ORIGINAL REPORT ON FILE IN LAB CONTAINS ADDITIONAL TEST SITE INFORMATION. Serum DNA double strand anti body assay (units/volume)Ordered By: Pasha Vargas on 07-01-2023 DNA double strand Ab Qn (S) 1 [IU]/mL 0-9 [facility] Comment on above: Negative <5 Equivoca l 5 - 9 Positive >9Performed at: [facility] [id number] Director: Rolo Castle PhD, Phone: [phone] Serum or plasma calcium noemi urement (mass/volume)Ordered By: Pasha Vargas on 07-01-2023 Calcium [Mass/Vol] 8.8 mg/dL 8.5-10.1 [facility] Serum or plasma complement C 3 measurement (mass/volume)Ordered By: Pasha Vargas on 07-01-2023 Complement C3 [Mass/Vol] 118 mg/dL 82-167 [facility] Serum or plasma creatinine m easurement (mass/volume)Ordered By: Pasha Vargas on 07-01-2023 Creatinine [Mass/Vol] 2.31 mg/dL 0.55-1.02 [facility] Comment on above: The validity of the calculated GFR & GFRAA in patients over 70 years has not been determined. Clinical correlation is essential. Serum or plasma urea nitroge n measurement (mass/volume)Ordered By: Pasha Vargas on 07-01-2023 Urea nitrogen [Mass/Vol] 44 mg/dL 7-18 [facility] Thin prep Papanicolaou smear with manual screeningOrdered By: Pasha Vargas on 07-01-2023 Thin prep Papanicolaou smear with manual screening 7 5-15 [facility] Urine creatinine measurement (mass/volume)Ordered By: Pasha Vargas on 07-01-2023 Creatinine (U) [Mass/Vol] 47.50 mg/dL NO RANGE EST. [facility] Urine protein measurement (m ass/volume)Ordered By: Pasha Vargas on 07-01-2023 Protein (U) [Mass/Vol] 56.6 mg/dL 0.0-11.8 [facility] Urine protein/creatinine mas s ratioOrdered By: Pasha Vargas on 07-01-2023 Protein/Creatinine (U) [Mass ratio] 1192 mg/g CRE 0-200 [facility] Absolute lymphocyte countOrd ered By: Marta Koehler on 05-28-2023 Lymphocytes Auto (Unsp spec) [#/Vol] 1.46 10*3/uL 0.83-4.51 [facility] Basophil percentageOrdered B y: Marta Koehler on 05-28-2023 Basophils/100 WBC (Bld) 1.5 % 0-1 [facility] Bilirubin [Mass/Vol] 0.20 mg/dL 0.20-1.00 [facility] Comment on above: For patients on eltr ombopag therapy, use of Dimension [place] TBIL is not recommended. Chloride [Moles/Vol] 110 mmol/L 98-107 [facility] Cholesterol [Mass/Vol] 122 mg/dL <200 [facility] Comment on above: <200 mg/dL Desirable 200-240 mg/dL Borderline >240 mg/dL High Risk Eosinophils/100 WBC (Bld) 7.2 % 0-5 [facility] Glucose [Mass/Vol] 131 mg/dL 74-106 [facility] Comment on above: Fasting Glucose resu lt greater than or equal to 126 mg/dL suggests DIABETES MELLITUS per A.D.A. criteria. Neutrophils (Bld) [#/Vol] 3.3 10*3/uL 2.0-7.7 [facility] Neutrophils/100 WBC (Bld) 56.9 % 47-70 [facility] Potassium [Moles/Vol] 5.3 mmol/L 3.5-5.1 [facility] Protein [Mass/Vol] 6.4 g/dL 6.4-8.2 [facility] Sodium [Moles/Vol] 140 mmol/L 136-145 [facility] Triglyceride [Mass/Vol] 173 mg/dL <199 [facility] Comment on above: The drugs N-Acetylcy steine and Metamizole may falsely depress this assay.Serum Triglycerides Reference Interval Normal <150 mg/dL Borderline high 150 - 199 mg/dL High 200 - 499 mg/dL Very High > or = 500 mg/dL WBC (Bld) [#/Vol] 5.9 10*3/uL 4.4-11.0 [facility] Blood erythrocytes count (nu mber/volume)Ordered By: Marta Koehler on 05-28-2023 RBC (Bld) [#/Vol] 3.70 10*6/uL 4.2-5.4 [facility] Blood hemoglobin measurement (mass/volume)Ordered By: Marta Koehler on 05-28-2023 Hemoglobin (Bld) [Mass/Vol] 10.9 g/dL 12.0-15.0 [facility] Blood lymphocytes/100 leukoc ytesOrdered By: Marta Koehler on 05-28-2023 Lymphocytes/100 WBC (Bld) 25.0 % 19-41 [facility] Blood monocytes/100 leukocyt esOrdered By: Marta Koehler on 05-28-2023 Monocytes/100 WBC (Bld) 9.1 % 0-10 [facility] [facility] Blood platelet mean volumeOr dered By: Marta Koehler on 05-28-2023 Platelet mean volume (Bld) [Entitic vol] 11.3 fL 6.2-12.0 [facility] Determination of erythrocyte mean corpuscular volume (MCV)Ordered By: Marta Koehler on 05-28-2023 MCV (RBC) [Entitic vol] 93.8 fL 81-99 [facility] Hematocrit Auto (Bld) [Volum e fraction]Ordered By: Marta Koehler on 05-28-2023 Hematocrit (Bld) [Volume fraction] 34.7 % 37-47 [facility] - Chemistry and C hemistry - challengeOrdered By: Marta Koehler on 05-28-2023 ALP [Catalytic activity/Vol] 87 U/L 45-117 [facility] ALT [Catalytic activity/Vol] 24 U/L 13-56 [facility] CO2 [Moles/Vol] 22.0 mmol/L 21.0-32.0 [facility] Free T4 [Mass/Vol] 1.13 ng/dL 0.76-1.46 [facility] Globulin (S) [Mass/Vol] 3.2 g/dL 2.2-4.2 [facility] Urea nitrogen/Creatinine [Mass ratio] 17.5 mg/mg 10-20 [facility] - Hematology and Cell countsOrdered By: Marta Koehler on 05-28-2023 Erythrocyte distribution width (RBC) [Entitic vol] 44.3 fL 35.1-43.9 [facility] Erythrocyte distribution width (RBC) [Ratio] 12.9 % 11.6-14.6 [facility] Immature granulocytes/100 WBC (Bld) 0.300 % 0.0-0.9 [facility] Comment on above: IG% - Immature Granu locytes (promyelocytes, myelocytes and metamyelocytes) > 1% indicates that a LEFT SHIFT is Present. MCH (RBC) [Entitic mass] 29.5 pg 27.0-32.0 [facility] Nucleated RBC/100 WBC (Bld) [Ratio] 0 % 0-5 [facility] MCHC Auto (RBC) [Mass/Vol]Or dered By: Marta Koehler on 05-28-2023 MCHC (RBC) [Mass/Vol] 31.4 g/dL 32-36 [facility] No Panel InformationOrdered By: Marta Koehler on 05-28-2023 Estimated GFR (MDRD) Amer 23 mL/min >60 [facility] Comment on above: GFR Calc Estimated GFR (MDRD) Non-Af Amer 19 mL/min >60 [facility] Comment on above: Non- GFR Calc Thyroid Stimulating Hormone (TSH) 0.79 uIU/mL 0.358-3.74 [facility] Platelets bldOrdered By: Daniel Koehler on 05-28-2023 Platelets (Bld) [#/Vol] 202 10*3/uL 150-450 [facility] Serum or plasma albumin noemi urement (mass/volume)Ordered By: Marta Koehler on 05-28-2023 Albumin [Mass/Vol] 3.2 g/dL 3.2-5.0 [facility] Serum or plasma albumin/glob ulin mass ratioOrdered By: Marta Koehler on 05-28-2023 Albumin/Globulin [Mass ratio] 1.0 {ratio} 0.9-2.4 [facility] Serum or plasma calcium noemi urement (mass/volume)Ordered By: Marta Koehler on 05-28-2023 Calcium [Mass/Vol] 8.5 mg/dL 8.5-10.1 [facility] Serum or plasma cholesterol in HDL measurement (mass/volume)Ordered By: Marta Koehler on 05-28-2023 Cholesterol in HDL [Mass/Vol] 49 mg/dL >40 [facility] Comment on above: The drugs N-Acetylcy steine and Metamizole may falsely depress this assay. Reference Range HDL <40 mg/dL Low HDL Cholesterol HDL >or= 60 mg/dL High HDL Cholesterol Serum or plasma cholesterol in VLDL measurement (mass/volume)Ordered By: Marta Koehler on 05-28-2023 Cholesterol in VLDL [Mass/Vol] 35 mg/dL 5-40 [facility] Serum or plasma creatinine m easurement (mass/volume)Ordered By: Marta Koehler on 05-28-2023 Creatinine [Mass/Vol] 2.63 mg/dL 0.55-1.02 [facility] Comment on above: The validity of the calculated GFR & GFRAA in patients over 70 years has not been determined. Clinical correlation is essential. Serum or plasma low density lipoprotein (LDL) cholesterol measurement (mass/volume)Ordered By: Marta Koehler on 05-28-2023 Cholesterol in LDL [Mass/Vol] 38 mg/dL 0-130 [facility] Serum or plasma urea nitroge n measurement (mass/volume)Ordered By: Marta Koehler on 05-28-2023 Urea nitrogen [Mass/Vol] 46 mg/dL 7-18 [facility] Thin prep Papanicolaou smear with manual screeningOrdered By: Marta Koehler on 05-28-2023 Thin prep Papanicolaou smear with manual screening 18 U/L 15-37 [facility] Thin prep Papanicolaou smear with manual screening 8 5-15 [facility] Whole blood hemoglobin A1c/t otal hemoglobin ratio (mass fraction)Ordered By: Marta Koehler on 05-28-2023 HbA1c (Bld) [Mass fraction] 5.7 % 3.8-5.6 [facility] Comment on above: Normal < 5.7 % Predi abetic 5.7 - 6.4 % Diabetic >or= 6.5 % Please note range changes. Atypical perinuclear antineu trophil cytoplasmic antibodies measurementOrdered By: Pasha Vargas on 04-09-2023 Neutrophil cytoplasmic Ab.perinuclear.atypical IF (S) [Titer] <1:20 titer Neg:<1:20 [facility] Comment on above: The atypical pANCA p attern has been observed in asignificant percentage of patients with ulcerative colitis,primary sclerosing cholangitis and autoimmune hepatitis. Basophil percentageOrdered B y: Pasha Vargas on 04-09-2023 Chloride [Moles/Vol] 109 mmol/L 98-107 [facility] Glucose [Mass/Vol] 96 mg/dL 74-106 [facility] Potassium [Moles/Vol] 4.8 mmol/L 3.5-5.1 [facility] Sodium [Moles/Vol] 140 mmol/L 136-145 [facility] Laboratory - Chemistry and C hemistry - challengeOrdered By: Pasha Vargas on 04-09-2023 CO2 [Moles/Vol] 26.0 mmol/L 21.0-32.0 [facility] Urea nitrogen/Creatinine [Mass ratio] 17.5 mg/mg 10-20 [facility] No Panel InformationOrdered By: Pasha Vargas on 04-09-2023 Estimated GFR (MDRD) Amer 27 mL/min >60 [facility] Comment on above: GFR Calc Estimated GFR (MDRD) Non-Af Amer 22 mL/min >60 [facility] Comment on above: Non- GFR Calc Serum DNA double strand anti body assay (units/volume)Ordered By: Pasha Vargas on 04-09-2023 DNA double strand Ab Qn (S) [IU]/mL 0-9 [facility] Comment on above: Negative <5 Equivoca l 5 - 9 Positive >9Performed at: [employer] [facility] [address] [id number] Director: Rolo Castle PhD, Phone: [phone] Serum classic neutrophil cyt oplasmic antibody assay (units/volume)Ordered By: Pasha Vargas on 04-09-2023 Neutrophil cytoplasmic Ab.classic Qn (S) <1:20 titer Neg:<1:20 [facility] Serum or plasma calcium noemi urement (mass/volume)Ordered By: Pasha Vargas on 04-09-2023 Calcium [Mass/Vol] 9.3 mg/dL 8.5-10.1 [facility] Serum or plasma complement C 3 measurement (mass/volume)Ordered By: Pasha Vargas on 04-09-2023 Complement C3 [Mass/Vol] 109 mg/dL 82-167 [facility] Comment on above: Performed at: [employer] [facility] [address] [id number] Director: Rolo Castle PhD, Phone: [phone] Serum or plasma creatinine m easurement (mass/volume)Ordered By: Pasha Vargas on 04-09-2023 Creatinine [Mass/Vol] 2.29 mg/dL 0.55-1.02 [facility] Comment on above: The validity of the calculated GFR & GFRAA in patients over 70 years has not been determined. Clinical correlation is essential. Serum or plasma urea nitroge n measurement (mass/volume)Ordered By: Pasha Vargas on 04-09-2023 Urea nitrogen [Mass/Vol] 40 mg/dL 7-18 [facility] Serum perinuclear neutrophil cytoplasmic antibody titer by immunofluorescenceOrdered By: Pasha Vargas on 04-09-2023 Neutrophil cytoplasmic Ab.perinuclear IF (S) [Titer] 1:80 titer Neg:<1:20 [facility] Comment on above: The presence of posi tive fluorescence exhibiting P-ANCA orC-ANCA patterns alone is not specific for the diagnosis ofWegener's Granulomatosis (WG) or microscopic polyangiitis.Decisions about treatment should not be based solely onANCA IFA results. The [employer] ANCA Group Consensusrecommends follow up testing of positive sera with both ME-3 and MPO-ANCA enzyme immunoassays. As many as 5% serumsamples are positive only by EIA. Ref. AM J Clin [id number];111:507-513. Thin prep Papanicolaou smear with manual screeningOrdered By: Pasha Vargas on 04-09-2023 Thin prep Papanicolaou smear with manual screening 5 5-15 [facility] Basophil percentageOrdered B y: Marta Koehler on 04-01-2023 Potassium [Moles/Vol] 5.4 mmol/L 3.5-5.1 [facility] Basophil percentageOrdered B y: Marta Koehler on 03-28-2023 Potassium [Moles/Vol] 5.5 mmol/L 3.5-5.1 [facility] Basophil percentageOrdered B y: Marta Koehler on 03-25-2023 Chloride [Moles/Vol] 110 mmol/L 98-107 [facility] Glucose [Mass/Vol] 99 mg/dL 74-106 [facility] Potassium [Moles/Vol] 5.3 mmol/L 3.5-5.1 [facility] Sodium [Moles/Vol] 139 mmol/L 136-145 [facility] Laboratory - Chemistry and C hemistry - challengeOrdered By: Marta Koehler on 03-25-2023 CO2 [Moles/Vol] 24.0 mmol/L 21.0-32.0 [facility] Urea nitrogen/Creatinine [Mass ratio] 16.8 mg/mg 10-20 [facility] No Panel InformationOrdered By: Marta Koehler on 03-25-2023 Estimated GFR (MDRD) Amer 26 mL/min >60 [facility] Comment on above: GFR Calc Estimated GFR (MDRD) Non-Af Amer 22 mL/min >60 [facility] Comment on above: Non- GFR Calc Serum or plasma calcium noemi urement (mass/volume)Ordered By: Marta Koehler on 03-25-2023 Calcium [Mass/Vol] 9.2 mg/dL 8.5-10.1 [facility] Serum or plasma creatinine m easurement (mass/volume)Ordered By: Marta Koehler on 03-25-2023 Creatinine [Mass/Vol] 2.32 mg/dL 0.55-1.02 [facility] Comment on above: The validity of the calculated GFR & GFRAA in patients over 70 years has not been determined. Clinical correlation is essential. Serum or plasma urea nitroge n measurement (mass/volume)Ordered By: Marta Koehler on 03-25-2023 Urea nitrogen [Mass/Vol] 39 mg/dL 7-18 [facility] Thin prep Papanicolaou smear with manual screeningOrdered By: Marta Koehler on 03-25-2023 Thin prep Papanicolaou smear with manual screening 5 5-15 [facility] Basophil percentageOrdered B y: Dr. Koehler on 03-05-2023 Potassium [Moles/Vol] 5.2 mmol/L 3.5-5.1 [facility] Basophil percentageOrdered B y: Dr. Koehler on 02-27-2023 Potassium [Moles/Vol] 5.1 mmol/L 3.5-5.1 [facility] No Panel InformationOrdered By: Dr. Koehler on 02-27-2023 Urine Microalbumin/Creatinine Ratio 375.9 mg/g CRE <30 [facility] Thin prep Papanicolaou smear with manual screeningOrdered By: Dr. Koehler on 02-27-2023 Thin prep Papanicolaou smear with manual screening 159.0 mg/L NO RANGE EST. [facility] Urine creatinine measurement (mass/volume)Ordered By: Dr. Koehler on 02-27-2023 Creatinine (U) [Mass/Vol] 42.30 mg/dL NO RANGE EST. [facility] Urine protein measurement (m ass/volume)Ordered By: Dr. Koehler on 02-27-2023 Protein (U) [Mass/Vol] 33.3 mg/dL 0.0-11.8 [facility] Urine protein/creatinine mas s ratioOrdered By: Dr. Koehler on 02-27-2023 Protein/Creatinine (U) [Mass ratio] 787 mg/g CRE 0-200 [facility] Absolute lymphocyte countOrd ered By: Dr. Koehler on 02-26-2023 Lymphocytes Auto (Unsp spec) [#/Vol] 1.34 10*3/uL 0.83-4.51 [facility] Basophil percentageOrdered B y: Dr. Koehler on 02-26-2023 Basophil percentage 3.8 mg/dL 2.5-4.9 [facility] Basophils/100 WBC (Bld) 1.7 % 0-1 [facility] Bilirubin [Mass/Vol] 0.40 mg/dL 0.20-1.00 [facility] Comment on above: For patients on eltr ombopag therapy, use of Dimension [place] TBIL is not recommended. Chloride [Moles/Vol] 108 mmol/L 98-107 [facility] Cholesterol [Mass/Vol] 123 mg/dL <200 [facility] Comment on above: <200 mg/dL Desirable 200-240 mg/dL Borderline >240 mg/dL High Risk Eosinophils/100 WBC (Bld) 15.4 % 0-5 [facility] Glucose [Mass/Vol] 78 mg/dL 74-106 [facility] Neutrophils (Bld) [#/Vol] 3.0 10*3/uL 2.0-7.7 [facility] Neutrophils/100 WBC (Bld) 50.9 % 47-70 [facility] Potassium [Moles/Vol] 5.5 mmol/L 3.5-5.1 [facility] Protein [Mass/Vol] 6.6 g/dL 6.4-8.2 [facility] Sodium [Moles/Vol] 135 mmol/L 136-145 [facility] Triglyceride [Mass/Vol] 92 mg/dL <199 [facility] Comment on above: The drugs N-Acetylcy steine and Metamizole may falsely depress this assay.Serum Triglycerides Reference Interval Normal <150 mg/dL Borderline high 150 - 199 mg/dL High 200 - 499 mg/dL Very High > or = 500 mg/dL WBC (Bld) [#/Vol] 5.9 10*3/uL 4.4-11.0 [facility] Blood erythrocytes count (nu mber/volume)Ordered By: Dr. Koehler on 02-26-2023 RBC (Bld) [#/Vol] 3.49 10*6/uL 4.2-5.4 [facility] Blood hemoglobin measurement (mass/volume)Ordered By: Dr. Koehler on 02-26-2023 Hemoglobin (Bld) [Mass/Vol] 10.3 g/dL 12.0-15.0 [facility] Blood lymphocytes/100 leukoc ytesOrdered By: Dr. Koehler on 02-26-2023 Lymphocytes/100 WBC (Bld) 22.7 % 19-41 [facility] Blood monocytes/100 leukocyt esOrdered By: Dr. Koehler on 02-26-2023 Monocytes/100 WBC (Bld) 9.0 % 0-10 [facility] Blood platelet mean volumeOr dered By: Dr. Koehler on 02-26-2023 Platelet mean volume (Bld) [Entitic vol] 11.6 fL 6.2-12.0 [facility] Determination of erythrocyte mean corpuscular volume (MCV)Ordered By: Dr. Koehler on 02-26-2023 MCV (RBC) [Entitic vol] 94.3 fL 81-99 [facility] Hematocrit Auto (Bld) [Volum e fraction]Ordered By: Dr. Koehler on 02-26-2023 Hematocrit (Bld) [Volume fraction] 32.9 % 37-47 [facility] Iron measurement (mass/mass) Ordered By: Dr. Koehler on 02-26-2023 Iron (Unsp spec) [Mass/Mass] 60 ug/dL 50-170 [facility] - Chemistry and C hemistry - challengeOrdered By: Dr. Koehler on 02-26-2023 ALP [Catalytic activity/Vol] 73 U/L 45-117 [facility] ALT [Catalytic activity/Vol] 21 U/L 13-56 [facility] CO2 [Moles/Vol] 23.0 mmol/L 21.0-32.0 [facility] Cobalamin (Vitamin B12) [Mass/Vol] 659 pg/mL 211-911 [facility] Free T4 [Mass/Vol] 1.44 ng/dL 0.76-1.46 [facility] Globulin (S) [Mass/Vol] 3.3 g/dL 2.2-4.2 [facility] Urea nitrogen/Creatinine [Mass ratio] 15.3 mg/mg 10-20 [facility] - Hematology and Cell countsOrdered By: Dr. Koehler on 02-26-2023 Erythrocyte distribution width (RBC) [Entitic vol] 44.2 fL 35.1-43.9 [facility] Erythrocyte distribution width (RBC) [Ratio] 12.9 % 11.6-14.6 [facility] Immature granulocytes/100 WBC (Bld) 0.300 % 0.0-0.9 [facility] Comment on above: IG% - Immature Granu locytes (promyelocytes, myelocytes and metamyelocytes) > 1% indicates that a LEFT SHIFT is Present. MCH (RBC) [Entitic mass] 29.5 pg 27.0-32.0 [facility] Nucleated RBC/100 WBC (Bld) [Ratio] 0 % 0-5 [facility] MCHC Auto (RBC) [Mass/Vol]Or dered By: Dr. Koehler on 02-26-2023 MCHC (RBC) [Mass/Vol] 31.3 g/dL 32-36 [facility] No Panel InformationOrdered By: Dr. Koehler on 02-26-2023 Estimated GFR (MDRD) Amer 24 mL/min >60 [facility] Comment on above: GFR Calc Estimated GFR (MDRD) Non-Af Amer 20 mL/min >60 [facility] Comment on above: Non- GFR Calc Parathyroid Hormone (Intact) 62.8 pg/mL 18.4-80.1 [facility] Thyroid Stimulating Hormone (TSH) 0.18 uIU/mL 0.358-3.74 [facility] Total Iron Binding Capacity 298 ug/dL 250-450 [facility] Vitamin D 25-Hydroxy 55.9 ng/mL [facility] Comment on above: Vitamin D 25(OH) Sta tus Range Deficiency <20 ng/mL (50nmol/L) Insufficiency 20 - 30 ng/mL (50 - 75 nmol/L) Sufficiency 30 - 100 ng/mL (75 - 250 nmol/L) Toxicity >100 ng/mL (>250 nmol/L) Platelets bldOrdered By: Dr. Koehler on 02-26-2023 Platelets (Bld) [#/Vol] 193 10*3/uL 150-450 [facility] Serum or plasma albumin noemi urement (mass/volume)Ordered By: Dr. Koehler on 02-26-2023 Albumin [Mass/Vol] 3.3 g/dL 3.2-5.0 [facility] Serum or plasma albumin/glob ulin mass ratioOrdered By: Dr. Koehler on 02-26-2023 Albumin/Globulin [Mass ratio] 1.0 {ratio} 0.9-2.4 [facility] Serum or plasma calcium noemi urement (mass/volume)Ordered By: Dr. Koehler on 02-26-2023 Calcium [Mass/Vol] 9.3 mg/dL 8.5-10.1 [facility] Serum or plasma cholesterol in HDL measurement (mass/volume)Ordered By: Dr. Koehler on 02-26-2023 Cholesterol in HDL [Mass/Vol] 52 mg/dL >40 [facility] Comment on above: The drugs N-Acetylcy steine and Metamizole may falsely depress this assay. Reference Range HDL <40 mg/dL Low HDL Cholesterol HDL >or= 60 mg/dL High HDL Cholesterol Serum or plasma cholesterol in VLDL measurement (mass/volume)Ordered By: Dr. Koehler on 02-26-2023 Cholesterol in VLDL [Mass/Vol] 18 mg/dL 5-40 [facility] Serum or plasma creatinine m easurement (mass/volume)Ordered By: Dr. Koehler on 02-26-2023 Creatinine [Mass/Vol] 2.48 mg/dL 0.55-1.02 [facility] Comment on above: The validity of the calculated GFR & GFRAA in patients over 70 years has not been determined. Clinical correlation is essential. Serum or plasma ferritin consuelo surement (mass/volume)Ordered By: Dr. Koehler on 02-26-2023 Ferritin [Mass/Vol] 23 ng/mL 8-252 [facility] Serum or plasma folate measu rement (mass/volume)Ordered By: Dr. Koehler on 02-26-2023 Folate [Mass/Vol] 21.20 ng/mL 3.1-55.4 [facility] Serum or plasma low density lipoprotein (LDL) cholesterol measurement (mass/volume)Ordered By: Dr. Koehler on 02-26-2023 Cholesterol in LDL [Mass/Vol] 53 mg/dL 0-130 [facility] Serum or plasma urea nitroge n measurement (mass/volume)Ordered By: Dr. Koehler on 02-26-2023 Urea nitrogen [Mass/Vol] 38 mg/dL 7-18 [facility] Thin prep Papanicolaou smear with manual screeningOrdered By: Dr. Koehler on 02-26-2023 Thin prep Papanicolaou smear with manual screening 18 U/L 15-37 [facility] Thin prep Papanicolaou smear with manual screening 4 5-15 [facility] Whole blood hemoglobin A1c/t otal hemoglobin ratio (mass fraction)Ordered By: Dr. Koehler on 02-26-2023 HbA1c (Bld) [Mass fraction] 5.0 % 3.8-5.6 [facility] Comment on above: Normal < 5.7 % Predi abetic 5.7 - 6.4 % Diabetic >or= 6.5 % Please note range changes. Basophil percentageOrdered B y: Dr. Koehler on 02-18-2023 Chloride [Moles/Vol] 106 mmol/L 98-107 [facility] Glucose [Mass/Vol] 137 mg/dL 74-106 [facility] Comment on above: Fasting Glucose resu lt greater than or equal to 126 mg/dL suggests DIABETES MELLITUS per A.D.A. criteria. Potassium [Moles/Vol] 5.0 mmol/L 3.5-5.1 [facility] Sodium [Moles/Vol] 135 mmol/L 136-145 [facility] Laboratory - Chemistry and C hemistry - challengeOrdered By: Dr. Koehler on 02-18-2023 CO2 [Moles/Vol] 22.0 mmol/L 21.0-32.0 [facility] Urea nitrogen/Creatinine [Mass ratio] 15.2 mg/mg 10-20 [facility] No Panel InformationOrdered By: Dr. Koehler on 02-18-2023 Estimated GFR (MDRD) Amer 29 mL/min >60 [facility] Comment on above: GFR Calc Estimated GFR (MDRD) Non-Af Amer 24 mL/min >60 [facility] Comment on above: Non- GFR Calc Serum or plasma calcium noemi urement (mass/volume)Ordered By: Dr. Koehler on 02-18-2023 Calcium [Mass/Vol] 9.0 mg/dL 8.5-10.1 [facility] Serum or plasma creatinine m easurement (mass/volume)Ordered By: Dr. Koehler on 02-18-2023 Creatinine [Mass/Vol] 2.10 mg/dL 0.55-1.02 [facility] Comment on above: The validity of the calculated GFR & GFRAA in patients over 70 years has not been determined. Clinical correlation is essential. Serum or plasma urea nitroge n measurement (mass/volume)Ordered By: Dr. Koehler on 02-18-2023 Urea nitrogen [Mass/Vol] 32 mg/dL 7-18 [facility] Thin prep Papanicolaou smear with manual screeningOrdered By: Dr. Koehler on 02-18-2023 Thin prep Papanicolaou smear with manual screening 7 5-15 [facility] Basophil percentageOrdered B y: Dr. Koehler on 02-14-2023 Potassium [Moles/Vol] 5.5 mmol/L 3.5-5.1 [facility] Basophil percentageOrdered B y: Dr. Koehler on 02-12-2023 Chloride [Moles/Vol] 110 mmol/L 98-107 [facility] Glucose [Mass/Vol] 91 mg/dL 74-106 [facility] Potassium [Moles/Vol] 5.5 mmol/L 3.5-5.1 [facility] Sodium [Moles/Vol] 137 mmol/L 136-145 [facility] Laboratory - Chemistry and C hemistry - challengeOrdered By: Dr. Koehler on 02-12-2023 CO2 [Moles/Vol] 25.0 mmol/L 21.0-32.0 [facility] Urea nitrogen/Creatinine [Mass ratio] 14.0 mg/mg 10-20 [facility] No Panel InformationOrdered By: Dr. Koehler on 02-12-2023 Estimated GFR (MDRD) Amer 26 mL/min >60 [facility] Comment on above: GFR Calc Estimated GFR (MDRD) Non-Af Amer 21 mL/min >60 [facility] Comment on above: Non- GFR Calc Serum or plasma calcium noemi urement (mass/volume)Ordered By: Dr. Koehler on 02-12-2023 Calcium [Mass/Vol] 9.1 mg/dL 8.5-10.1 [facility] Serum or plasma creatinine m easurement (mass/volume)Ordered By: Dr. Koehler on 02-12-2023 Creatinine [Mass/Vol] 2.35 mg/dL 0.55-1.02 [facility] Comment on above: The validity of the calculated GFR & GFRAA in patients over 70 years has not been determined. Clinical correlation is essential. Serum or plasma urea nitroge n measurement (mass/volume)Ordered By: Dr. Koehler on 02-12-2023 Urea nitrogen [Mass/Vol] 33 mg/dL 7-18 [facility] Thin prep Papanicolaou smear with manual screeningOrdered By: Dr. Koehler on 02-12-2023 Thin prep Papanicolaou smear with manual screening 2 5-15 [facility] Basophil percentageOrdered B y: Dr. Koehler on 02-11-2023 Chloride [Moles/Vol] 107 mmol/L 98-107 [facility] Glucose [Mass/Vol] 144 mg/dL 74-106 [facility] Comment on above: Fasting Glucose resu lt greater than or equal to 126 mg/dL suggests DIABETES MELLITUS per A.D.A. criteria. Potassium [Moles/Vol] 5.6 mmol/L 3.5-5.1 [facility] Sodium [Moles/Vol] 136 mmol/L 136-145 [facility] Laboratory - Chemistry and C hemistry - challengeOrdered By: Dr. Koehler on 02-11-2023 CO2 [Moles/Vol] 22.0 mmol/L 21.0-32.0 [facility] Urea nitrogen/Creatinine [Mass ratio] 14.0 mg/mg 10-20 [facility] No Panel InformationOrdered By: Dr. Koehler on 02-11-2023 Estimated GFR (MDRD) Amer 27 mL/min >60 [facility] Comment on above: GFR Calc Estimated GFR (MDRD) Non-Af Amer 22 mL/min >60 [facility] Comment on above: Non- GFR Calc Serum or plasma calcium noemi urement (mass/volume)Ordered By: Dr. Koehler on 02-11-2023 Calcium [Mass/Vol] 8.9 mg/dL 8.5-10.1 [facility] Serum or plasma creatinine m easurement (mass/volume)Ordered By: Dr. Koehler on 02-11-2023 Creatinine [Mass/Vol] 2.29 mg/dL 0.55-1.02 [facility] Comment on above: The validity of the calculated GFR & GFRAA in patients over 70 years has not been determined. Clinical correlation is essential. Serum or plasma urea nitroge n measurement (mass/volume)Ordered By: Dr. Koehler on 02-11-2023 Urea nitrogen [Mass/Vol] 32 mg/dL 7-18 [facility] Thin prep Papanicolaou smear with manual screeningOrdered By: Dr. Koehler on 02-11-2023 Thin prep Papanicolaou smear with manual screening 7 5-15 [facility] Basophil percentageOrdered B y: Dr. Koehler on 01-21-2023 Basophil percentage 3.8 mg/dL 2.5-4.9 [facility] Chloride [Moles/Vol] 109 mmol/L 98-107 [facility] Glucose [Mass/Vol] 104 mg/dL 74-106 [facility] Comment on above: Fasting Glucose resu lt from 100 to 125 mg/dL suggests IMPAIRED HOMEOSTASIS per A.D.A. criteria. Potassium [Moles/Vol] 4.9 mmol/L 3.5-5.1 [facility] Sodium [Moles/Vol] 140 mmol/L 136-145 [facility] Laboratory - Chemistry and C hemistry - challengeOrdered By: Dr. Koehler on 01-21-2023 CO2 [Moles/Vol] 26.0 mmol/L 21.0-32.0 [facility] Urea nitrogen/Creatinine [Mass ratio] 14.0 mg/mg 10-20 [facility] No Panel InformationOrdered By: Dr. Koehler on 01-21-2023 Estimated GFR (MDRD) Amer 36 mL/min >60 [facility] Comment on above: GFR Calc Estimated GFR (MDRD) Non-Af Amer 29 mL/min >60 [facility] Comment on above: Non- GFR Calc Serum or plasma albumin noemi urement (mass/volume)Ordered By: Dr. Koehler on 01-21-2023 Albumin [Mass/Vol] 2.9 g/dL 3.2-5.0 [facility] Serum or plasma calcium noemi urement (mass/volume)Ordered By: Dr. Koehler on 01-21-2023 Calcium [Mass/Vol] 9.0 mg/dL 8.5-10.1 [facility] Serum or plasma creatinine m easurement (mass/volume)Ordered By: Dr. Koehler on 01-21-2023 Creatinine [Mass/Vol] 1.78 mg/dL 0.55-1.02 [facility] Comment on above: The validity of the calculated GFR & GFRAA in patients over 70 years has not been determined. Clinical correlation is essential. Serum or plasma urea nitroge n measurement (mass/volume)Ordered By: Dr. Koehler on 01-21-2023 Urea nitrogen [Mass/Vol] 25 mg/dL 7-18 [facility] Basophil percentageOrdered B y: Dr. Torre on 01-19-2023 Bilirubin [Mass/Vol] 0.60 mg/dL 0.20-1.00 [facility] Comment on above: For patients on eltr ombopag therapy, use of Dimension [place] TBIL is not recommended. Chloride [Moles/Vol] 113 mmol/L 98-107 [facility] Glucose [Mass/Vol] 71 mg/dL 74-106 [facility] Potassium [Moles/Vol] 4.7 mmol/L 3.5-5.1 [facility] Protein [Mass/Vol] 5.5 g/dL 6.4-8.2 [facility] Sodium [Moles/Vol] 143 mmol/L 136-145 [facility] Glucose Glucometer (BldC) [M ass/Vol]Ordered By: Dr. Lacey on 01-19-2023 Glucose [Mass/Vol] 82 mg/dL 74-106 [facility] Comment on above: MANAGEMENT OF PATIEN T CARE PER NURSING PROTOCOL Iron measurement (mass/mass) Ordered By: Dr. Torre on 01-19-2023 Iron (Unsp spec) [Mass/Mass] 96 ug/dL 50-170 [facility] Laboratory - Chemistry and C hemistry - challengeOrdered By: Dr. Torre on 01-19-2023 ALP [Catalytic activity/Vol] 56 U/L 45-117 [facility] ALT [Catalytic activity/Vol] 21 U/L 13-56 [facility] CO2 [Moles/Vol] 23.0 mmol/L 21.0-32.0 [facility] Globulin (S) [Mass/Vol] 2.8 g/dL 2.2-4.2 [facility] Urea nitrogen/Creatinine [Mass ratio] 14.2 mg/mg 10-20 [facility] No Panel InformationOrdered By: Dr. Torre on 01-19-2023 Estimated Creatinine Clearance Calc 23.43 ml/min [facility] Estimated GFR (MDRD) Amer 38 mL/min >60 [facility] Comment on above: GFR Calc Estimated GFR (MDRD) Non-Af Amer 31 mL/min >60 [facility] Comment on above: Non- GFR Calc Serum or plasma albumin noemi urement (mass/volume)Ordered By: Dr. Torre on 01-19-2023 Albumin [Mass/Vol] 2.7 g/dL 3.2-5.0 [facility] Serum or plasma albumin/glob ulin mass ratioOrdered By: Dr. Torre on 01-19-2023 Albumin/Globulin [Mass ratio] 1.0 {ratio} 0.9-2.4 [facility] Serum or plasma calcium noemi urement (mass/volume)Ordered By: Dr. Torre on 01-19-2023 Calcium [Mass/Vol] 8.5 mg/dL 8.5-10.1 [facility] Serum or plasma creatinine m easurement (mass/volume)Ordered By: Dr. Torre on 01-19-2023 Creatinine [Mass/Vol] 1.69 mg/dL 0.55-1.02 [facility] Comment on above: The validity of the calculated GFR & GFRAA in patients over 70 years has not been determined. Clinical correlation is essential. Serum or plasma ferritin consuelo surement (mass/volume)Ordered By: Dr. Torre on 01-19-2023 Ferritin [Mass/Vol] 27 ng/mL 8-252 [facility] Serum or plasma urea nitroge n measurement (mass/volume)Ordered By: Dr. Torre on 01-19-2023 Urea nitrogen [Mass/Vol] 24 mg/dL 7-18 [facility] Thin prep Papanicolaou smear with manual screeningOrdered By: Dr. Torre on 01-19-2023 Thin prep Papanicolaou smear with manual screening 21 U/L 15-37 [facility] Thin prep Papanicolaou smear with manual screening 7 5-15 [facility] Absolute lymphocyte countOrd ered By: Dr. Castellon on 01-18-2023 Lymphocytes Auto (Unsp spec) [#/Vol] 1.29 10*3/uL 0.83-4.51 [facility] Basophil percentageOrdered B y: Dr. Castellon on 01-18-2023 Basophils/100 WBC (Bld) 0.9 % 0-1 [facility] Eosinophils/100 WBC (Bld) 7.3 % 0-5 [facility] Neutrophils (Bld) [#/Vol] 3.3 10*3/uL 2.0-7.7 [facility] Neutrophils/100 WBC (Bld) 59.0 % 47-70 [facility] WBC (Bld) [#/Vol] 5.6 10*3/uL 4.4-11.0 [facility] Blood erythrocytes count (nu mber/volume)Ordered By: Dr. Castellon on 01-18-2023 RBC (Bld) [#/Vol] 3.32 10*6/uL 4.2-5.4 [facility] Blood hemoglobin measurement (mass/volume)Ordered By: Dr. Castellon on 01-18-2023 Hemoglobin (Bld) [Mass/Vol] 9.6 g/dL 12.0-15.0 [facility] Blood lymphocytes/100 leukoc ytesOrdered By: Dr. Castellon on 01-18-2023 Lymphocytes/100 WBC (Bld) 23.0 % 19-41 [facility] Blood monocytes/100 leukocyt esOrdered By: Dr. Castellon on 01-18-2023 Monocytes/100 WBC (Bld) 9.6 % 0-10 [facility] Blood platelet mean volumeOr dered By: Dr. Castellon on 01-18-2023 Platelet mean volume (Bld) [Entitic vol] 11.4 fL 6.2-12.0 [facility] Determination of erythrocyte mean corpuscular volume (MCV)Ordered By: Dr. Castellon on 01-18-2023 MCV (RBC) [Entitic vol] 91.9 fL 81-99 [facility] Hematocrit Auto (Bld) [Volum e fraction]Ordered By: Dr. Castellon on 01-18-2023 Hematocrit (Bld) [Volume fraction] 30.5 % 37-47 [facility] - Chemistry and C hemistry - challengeOrdered By: Dr. Castellon on 01-18-2023 Sodium (U) [Moles/Vol] 106 mmol/L Not Establ. [facility] - Hematology and Cell countsOrdered By: Dr. Castellon on 01-18-2023 Erythrocyte distribution width (RBC) [Entitic vol] 47.7 fL 35.1-43.9 [facility] Erythrocyte distribution width (RBC) [Ratio] 14.0 % 11.6-14.6 [facility] Immature granulocytes/100 WBC (Bld) 0.200 % 0.0-0.9 [facility] Comment on above: IG% - Immature Granu locytes (promyelocytes, myelocytes and metamyelocytes) > 1% indicates that a LEFT SHIFT is Present. MCH (RBC) [Entitic mass] 28.9 pg 27.0-32.0 [facility] Nucleated RBC/100 WBC (Bld) [Ratio] 0 % 0-5 [facility] MCHC Auto (RBC) [Mass/Vol]Or dered By: Dr. Castellon on 01-18-2023 MCHC (RBC) [Mass/Vol] 31.5 g/dL 32-36 [facility] Platelets bldOrdered By: Dr. Castellon on 01-18-2023 Platelets (Bld) [#/Vol] 161 10*3/uL 150-450 [facility] Urine creatinine measurement (mass/volume)Ordered By: Dr. Castellon on 01-18-2023 Creatinine (U) [Mass/Vol] 129.00 mg/dL NO RANGE EST. [facility] Absolute lymphocyte countOrd ered By: Dr. Frazier on 01-17-2023 Lymphocytes Auto (Unsp spec) [#/Vol] 1.56 10*3/uL 0.83-4.51 [facility] Basophil percentageOrdered B y: Dr. Castellon on 01-17-2023 Basophil percentage 3.3 mg/dL 2.5-4.9 [facility] Basophil percentageOrdered B y: Dr. Frazier on 01-17-2023 Basophils/100 WBC (Bld) 0.7 % 0-1 [facility] Eosinophils/100 WBC (Bld) 7.6 % 0-5 [facility] Neutrophils (Bld) [#/Vol] 4.4 10*3/uL 2.0-7.7 [facility] Neutrophils/100 WBC (Bld) 61.1 % 47-70 [facility] WBC (Bld) [#/Vol] 7.3 10*3/uL 4.4-11.0 [facility] Basophil percentageOrdered B y: Dr. Koehler on 01-17-2023 Basophil percentage 10-25 SEEN /hpf 0-5 [facility] Chloride [Moles/Vol] 107 mmol/L 98-107 [facility] Glucose [Mass/Vol] 154 mg/dL 74-106 [facility] Comment on above: Fasting Glucose resu lt greater than or equal to 126 mg/dL suggests DIABETES MELLITUS per A.D.A. criteria. Potassium [Moles/Vol] 5.7 mmol/L 3.5-5.1 [facility] Sodium [Moles/Vol] 137 mmol/L 136-145 [facility] Bilirubin Test strip Ql (U)O rdered By: Dr. Koehler on 01-17-2023 Bilirubin Ql (U) Negative Negative [facility] Blood erythrocytes count (nu mber/volume)Ordered By: Dr. Frazier on 01-17-2023 RBC (Bld) [#/Vol] 3.41 10*6/uL 4.2-5.4 [facility] Blood hemoglobin measurement (mass/volume)Ordered By: Dr. Frazier on 01-17-2023 Hemoglobin (Bld) [Mass/Vol] 9.8 g/dL 12.0-15.0 [facility] Blood lymphocytes/100 leukoc ytesOrdered By: Dr. Frazier on 01-17-2023 Lymphocytes/100 WBC (Bld) 21.5 % 19-41 [facility] Blood monocytes/100 leukocyt esOrdered By: Dr. Frazier on 01-17-2023 Monocytes/100 WBC (Bld) 9.0 % 0-10 [facility] Blood platelet mean volumeOr dered By: Dr. Frazier on 01-17-2023 Platelet mean volume (Bld) [Entitic vol] 11.2 fL 6.2-12.0 [facility] Determination of erythrocyte mean corpuscular volume (MCV)Ordered By: Dr. Frazier on 01-17-2023 MCV (RBC) [Entitic vol] 91.5 fL 81-99 [facility] Glucose Glucometer (dC) [M ass/Vol]Ordered By: Dr. Frazier on 01-17-2023 Glucose [Mass/Vol] 135 mg/dL 74-106 [facility] Comment on above: MANAGEMENT OF PATIEN T CARE PER NURSING PROTOCOL Hematocrit Auto (Bld) [Volum e fraction]Ordered By: Dr. Frazier on 01-17-2023 Hematocrit (Bld) [Volume fraction] 31.2 % 37-47 [facility] Ketones Test strip Ql (U)Ord ered By: Dr. Koehler on 01-17-2023 Ketones Ql (U) Negative Negative [facility] - Chemistry and C hemistry - challengeOrdered By: Dr. Castellon on 01-17-2023 Magnesium [Mass/Vol] 2.2 mg/dL 1.6-2.6 [facility] - Chemistry and C hemistry - challengeOrdered By: Dr. Koehler on 01-17-2023 CO2 [Moles/Vol] 24.0 mmol/L 21.0-32.0 [facility] Urea nitrogen/Creatinine [Mass ratio] 14.4 mg/mg 10-20 [facility] - Hematology and Cell countsOrdered By: Dr. Frazier on 01-17-2023 Erythrocyte distribution width (RBC) [Entitic vol] 45.8 fL 35.1-43.9 [facility] Erythrocyte distribution width (RBC) [Ratio] 13.5 % 11.6-14.6 [facility] Immature granulocytes/100 WBC (Bld) 0.100 % 0.0-0.9 [facility] Comment on above: IG% - Immature Granu locytes (promyelocytes, myelocytes and metamyelocytes) > 1% indicates that a LEFT SHIFT is Present. MCH (RBC) [Entitic mass] 28.7 pg 27.0-32.0 [facility] Nucleated RBC/100 WBC (Bld) [Ratio] 0 % 0-5 [facility] MCHC Auto (RBC) [Mass/Vol]Or dered By: Dr. Frazier on 01-17-2023 MCHC (RBC) [Mass/Vol] 31.4 g/dL 32-36 [facility] Mucus LM Ql (Urine sed)Order ed By: Dr. Koehler on 01-17-2023 Mucus Ql (Urine sed) 0 SEEN /hpf [facility] Nitrite Test strip Ql (U)Ord ered By: Dr. Koehler on 01-17-2023 Nitrite Ql (U) Negative Negative [facility] No Panel InformationOrdered By: Dr. Koehler on 01-17-2023 Estimated GFR (MDRD) Amer 28 mL/min >60 [facility] Comment on above: GFR Calc Estimated GFR (MDRD) Non-Af Amer 23 mL/min >60 [facility] Comment on above: Non- GFR Calc Urine Microalbumin/Creatinine Ratio 188.1 mg/g CRE <30 [facility] Platelets bldOrdered By: Dr. Frazier on 01-17-2023 Platelets (Bld) [#/Vol] 187 10*3/uL 150-450 [facility] Protein Test strip Ql (U)Ord ered By: Dr. Koehler on 01-17-2023 Protein Ql (U) 30 mg/dl Negative [facility] Serum or plasma calcium noemi urement (mass/volume)Ordered By: Dr. Koehler on 01-17-2023 Calcium [Mass/Vol] 9.2 mg/dL 8.5-10.1 [facility] Serum or plasma creatinine m easurement (mass/volume)Ordered By: Dr. Koehler on 01-17-2023 Creatinine [Mass/Vol] 2.22 mg/dL 0.55-1.02 [facility] Comment on above: The validity of the calculated GFR & GFRAA in patients over 70 years has not been determined. Clinical correlation is essential. Serum or plasma urea nitroge n measurement (mass/volume)Ordered By: Dr. Koehler on 01-17-2023 Urea nitrogen [Mass/Vol] 32 mg/dL 7-18 [facility] Squamous epithelial cells de tection in urine sediment by light microscopyOrdered By: Dr. Koehler on 01-17-2023 Epithelial cells.squamous LM Ql (Urine sed) 0 SEEN /hpf 5-10 [facility] Thin prep Papanicolaou smear with manual screeningOrdered By: Dr. Koehler on 01-17-2023 Thin prep Papanicolaou smear with manual screening 6 5-15 [facility] Thin prep Papanicolaou smear with manual screening 167.0 mg/L NO RANGE EST. [facility] Urine blood detectionOrdered By: Dr. Koehler on 01-17-2023 RBC Ql (U) 25 /ul Negative [facility] RBC Ql (U) 0-5 SEEN /hpf 0-5 [facility] Urine clarityOrdered By: Dr. Koehler on 01-17-2023 Clarity (U) Cloudy Clear [facility] Urine color determinationOrd ered By: Dr. Koehler on 01-17-2023 Color (U) Yellow Yellow [facility] Urine creatinine measurement (mass/volume)Ordered By: Dr. Koehler on 01-17-2023 Creatinine (U) [Mass/Vol] 88.80 mg/dL NO RANGE EST. [facility] Urine glucose detectionOrder ed By: Dr. Koehler on 01-17-2023 Glucose Ql (U) Normal mg/dl Normal [facility] Urine leukocyte esterase det ection by dipstickOrdered By: Dr. Koehler on 01-17-2023 Leukocyte esterase Test strip Ql (U) 500 /ul Negative [facility] Urine pHOrdered By: Dr. Linda figueroa on 01-17-2023 pH (U) 7.0 [pH] 5.0 - 8.0 [facility] Urine protein measurement (m ass/volume)Ordered By: Dr. Koehler on 01-17-2023 Protein (U) [Mass/Vol] 33.6 mg/dL 0.0-11.8 [facility] Urine protein/creatinine mas s ratioOrdered By: Dr. Koehler on 01-17-2023 Protein/Creatinine (U) [Mass ratio] 378 mg/g CRE 0-200 [facility] Urine sediment bacteria coun t by microscopy (number/high power field)Ordered By: Dr. Koehler on 01-17-2023 Bacteria LM.HPF (Urine sed) [#/Area] 3 /[HPF] None Seen [facility] Urine specific gravity measu rementOrdered By: Dr. Koehler on 01-17-2023 Specific gravity (U) [Rel density] 1.010 1.002-1.03 0 [facility] Urobilinogen Auto test strip Ql (U)Ordered By: Dr. Koehler on 01-17-2023 Urobilinogen Ql (U) Normal mg/dl Normal [facility] Basophil percentageOrdered B y: Dr. Koehler on 01-16-2023 Basophil percentage 3.3 mg/dL 2.5-4.9 [facility] Bilirubin [Mass/Vol] 0.40 mg/dL 0.20-1.00 [facility] Comment on above: For patients on eltr ombopag therapy, use of Dimension [place] TBIL is not recommended. Chloride [Moles/Vol] 109 mmol/L 98-107 [facility] Cholesterol [Mass/Vol] 115 mg/dL <200 [facility] Comment on above: <200 mg/dL Desirable 200-240 mg/dL Borderline >240 mg/dL High Risk Glucose [Mass/Vol] 98 mg/dL 74-106 [facility] Potassium [Moles/Vol] 5.5 mmol/L 3.5-5.1 [facility] Protein [Mass/Vol] 6.2 g/dL 6.4-8.2 [facility] Sodium [Moles/Vol] 139 mmol/L 136-145 [facility] Triglyceride [Mass/Vol] 87 mg/dL <199 [facility] Comment on above: The drugs N-Acetylcy steine and Metamizole may falsely depress this assay.Serum Triglycerides Reference Interval Normal <150 mg/dL Borderline high 150 - 199 mg/dL High 200 - 499 mg/dL Very High > or = 500 mg/dL Laboratory - Chemistry and C hemistry - challengeOrdered By: Dr. Koehler on 01-16-2023 ALP [Catalytic activity/Vol] 61 U/L 45-117 [facility] ALT [Catalytic activity/Vol] 18 U/L 13-56 [facility] CO2 [Moles/Vol] 24.0 mmol/L 21.0-32.0 [facility] Free T4 [Mass/Vol] 1.61 ng/dL 0.76-1.46 [facility] Globulin (S) [Mass/Vol] 3.1 g/dL 2.2-4.2 [facility] Urea nitrogen/Creatinine [Mass ratio] 13.9 mg/mg 10-20 [facility] No Panel InformationOrdered By: Dr. Koehler on 01-16-2023 Estimated GFR (MDRD) Amer 34 mL/min >60 [facility] Comment on above: GFR Calc Estimated GFR (MDRD) Non-Af Amer 28 mL/min >60 [facility] Comment on above: Non- GFR Calc Parathyroid Hormone (Intact) 95.0 pg/mL 18.4-80.1 [facility] Thyroid Stimulating Hormone (TSH) 0.11 uIU/mL 0.358-3.74 [facility] Vitamin D 25-Hydroxy 57.6 ng/mL [facility] Comment on above: Vitamin D 25(OH) Sta tus Range Deficiency <20 ng/mL (50nmol/L) Insufficiency 20 - 30 ng/mL (50 - 75 nmol/L) Sufficiency 30 - 100 ng/mL (75 - 250 nmol/L) Toxicity >100 ng/mL (>250 nmol/L) Serum or plasma albumin noemi urement (mass/volume)Ordered By: Dr. Koehler on 01-16-2023 Albumin [Mass/Vol] 3.1 g/dL 3.2-5.0 [facility] Serum or plasma albumin/glob ulin mass ratioOrdered By: Dr. Koehler on 01-16-2023 Albumin/Globulin [Mass ratio] 1.0 {ratio} 0.9-2.4 [facility] Serum or plasma calcium noemi urement (mass/volume)Ordered By: Dr. Koehler on 01-16-2023 Calcium [Mass/Vol] 8.8 mg/dL 8.5-10.1 [facility] Serum or plasma cholesterol in HDL measurement (mass/volume)Ordered By: Dr. Koehler on 01-16-2023 Cholesterol in HDL [Mass/Vol] 44 mg/dL >40 [facility] Comment on above: The drugs N-Acetylcy steine and Metamizole may falsely depress this assay. Reference Range HDL <40 mg/dL Low HDL Cholesterol HDL >or= 60 mg/dL High HDL Cholesterol Serum or plasma cholesterol in VLDL measurement (mass/volume)Ordered By: Dr. Koehler on 01-16-2023 Cholesterol in VLDL [Mass/Vol] 17 mg/dL 5-40 [facility] Serum or plasma creatinine m easurement (mass/volume)Ordered By: Dr. Koehler on 01-16-2023 Creatinine [Mass/Vol] 1.87 mg/dL 0.55-1.02 [facility] Comment on above: The validity of the calculated GFR & GFRAA in patients over 70 years has not been determined. Clinical correlation is essential. Serum or plasma low density lipoprotein (LDL) cholesterol measurement (mass/volume)Ordered By: Dr. Koehler on 01-16-2023 Cholesterol in LDL [Mass/Vol] 54 mg/dL 0-130 [facility] Serum or plasma urea nitroge n measurement (mass/volume)Ordered By: Dr. Koehler on 01-16-2023 Urea nitrogen [Mass/Vol] 26 mg/dL 7-18 [facility] Thin prep Papanicolaou smear with manual screeningOrdered By: Dr. Koehler on 01-16-2023 Thin prep Papanicolaou smear with manual screening 18 U/L 15-37 [facility] Thin prep Papanicolaou smear with manual screening 6 5-15 [facility] Whole blood hemoglobin A1c/t otal hemoglobin ratio (mass fraction)Ordered By: Dr. Koehler on 01-16-2023 HbA1c (Bld) [Mass fraction] 5.5 % 3.8-5.6 [facility] Comment on above: Normal < 5.7 % Predi abetic 5.7 - 6.4 % Diabetic >or= 6.5 % Please note range changes. No Panel InformationOrdered By: Marco Chin on 12-16-2022 Stool Neutral Fats Normal . [facility] Comment on above: Normal (<60 Droplets /HPF) Stool Pancreatic Elastase 191 >200 [facility] Comment on above: Result Units: ug [place] st./g Severe Pancreatic Insufficiency: <100 Moderate Pancreatic Insufficiency: 100 - 200 Normal: >200Performed at: - [facility] [id number] Director: Joceline Do MD, Phone: [phone] Qualitative fecal fat or lip idsOrdered By: Marco Chin on 12-16-2022 Fat Ql (Stl) Increased . [facility] Comment on above: Normal (<100 Droplet s/HPF)Performed at: - [facility] [id number] Director: Rolo Castle PhD, Phone: [phone] Absolute lymphocyte countOrd ered By: Marco Chin on 12-09-2022 Lymphocytes Auto (Unsp spec) [#/Vol] 1.33 10*3/uL 0.83-4.51 [facility] Albumin Elph [Mass/Vol]Order ed By: Marco Chin on 12-09-2022 Albumin [Mass/Vol] 3.5 g/dL 2.9-4.4 [facility] Atypical perinuclear antineu trophil cytoplasmic antibodies measurementOrdered By: Marco Chin on 12-09-2022 Neutrophil cytoplasmic Ab.perinuclear.atypical IF (S) [Titer] <1:20 titer Neg:<1:20 [facility] Comment on above: The atypical pANCA p attern has been observed in asignificant percentage of patients with ulcerative colitis,primary sclerosing cholangitis and autoimmune hepatitis. Basophil percentageOrdered B y: Marco Chin on 12-09-2022 Basophil percentage < 0.2 AI 0.0-0.9 [facility] Basophils/100 WBC (Bld) 1.3 % 0-1 [facility] Bilirubin [Mass/Vol] 0.40 mg/dL 0.20-1.00 [facility] Comment on above: For patients on eltr ombopag therapy, use of Dimension [place] TBIL is not recommended. Chloride [Moles/Vol] 105 mmol/L 98-107 [facility] Eosinophils/100 WBC (Bld) 11.6 % 0-5 [facility] Glucose [Mass/Vol] 83 mg/dL 74-106 [facility] Neutrophils (Bld) [#/Vol] 3.7 10*3/uL 2.0-7.7 [facility] Neutrophils/100 WBC (Bld) 58.2 % 47-70 [facility] Potassium [Moles/Vol] 4.6 mmol/L 3.5-5.1 [facility] Protein [Mass/Vol] 6.4 g/dL 6.4-8.2 [facility] Sodium [Moles/Vol] 138 mmol/L 136-145 [facility] WBC (Bld) [#/Vol] 6.4 10*3/uL 4.4-11.0 [facility] Blood erythrocytes count (nu mber/volume)Ordered By: Marco Chin on 12-09-2022 RBC (Bld) [#/Vol] 3.87 10*6/uL 4.2-5.4 [facility] Blood hemoglobin measurement (mass/volume)Ordered By: Marco Chin on 12-09-2022 Hemoglobin (Bld) [Mass/Vol] 10.8 g/dL 12.0-15.0 [facility] Blood lymphocytes/100 leukoc ytesOrdered By: Marco Chin on 12-09-2022 Lymphocytes/100 WBC (Bld) 20.8 % 19-41 [facility] Blood monocytes/100 leukocyt esOrdered By: Marco Chin on 12-09-2022 Monocytes/100 WBC (Bld) 7.8 % 0-10 [facility] Blood platelet mean volumeOr dered By: Marco Chin on 12-09-2022 Platelet mean volume (Bld) [Entitic vol] 10.3 fL 6.2-12.0 [facility] Determination of erythrocyte mean corpuscular volume (MCV)Ordered By: Marco Chin on 12-09-2022 MCV (RBC) [Entitic vol] 89.1 fL 81-99 [facility] Erythrocyte sedimentation ra teOrdered By: Marco Chin on 12-09-2022 ESR (Bld) [Velocity] 9 mm/h 0-30 [facility] Hematocrit Auto (Bld) [Volum e fraction]Ordered By: Marco Chin on 12-09-2022 Hematocrit (Bld) [Volume fraction] 34.5 % 37-47 [facility] Interpretation of serum or p lasma protein pattern by immunofixation (narrative resultOrdered By: Marco Chin on 12-09-2022 Protein Fractions Immunofixation Jhon [Interp] See comment [facility] Comment on above: NOT OBSERVED Laboratory - Chemistry and C hemistry - challengeOrdered By: Marco Chin on 12-09-2022 ALP [Catalytic activity/Vol] 69 U/L 45-117 [facility] ALT [Catalytic activity/Vol] 16 U/L 13-56 [facility] CO2 [Moles/Vol] 25.0 mmol/L 21.0-32.0 [facility] Free T4 [Mass/Vol] 1.42 ng/dL 0.76-1.46 [facility] Urea nitrogen/Creatinine [Mass ratio] 12.2 mg/mg 10-20 [facility] Laboratory - Hematology and Cell countsOrdered By: Marco Chin on 12-09-2022 Erythrocyte distribution width (RBC) [Entitic vol] 42.7 fL 35.1-43.9 [facility] Erythrocyte distribution width (RBC) [Ratio] 13.2 % 11.6-14.6 [facility] Immature granulocytes/100 WBC (Bld) 0.300 % 0.0-0.9 [facility] Comment on above: IG% - Immature Granu locytes (promyelocytes, myelocytes and metamyelocytes) > 1% indicates that a LEFT SHIFT is Present. MCH (RBC) [Entitic mass] 27.9 pg 27.0-32.0 [facility] Nucleated RBC/100 WBC (Bld) [Ratio] 0 % 0-5 [facility] MCHC Auto (RBC) [Mass/Vol]Or dered By: Marco Chin on 12-09-2022 MCHC (RBC) [Mass/Vol] 31.3 g/dL 32-36 [facility] No Panel InformationOrdered By: Marco Chin on 12-09-2022 Addendum Document Comment . [facility] Comment on above: Protein electrophore sis scan will follow via computer,mail, or printed circuit boards contact printer delivery. [employer] B Antibody <0.2 AI 0.0-0.9 [facility] Endomysial IgA Antibody Negative Negative [facility] Estimated GFR (MDRD) Amer 39 mL/min >60 [facility] Comment on above: GFR Calc Estimated GFR (MDRD) Non-Af Amer 32 mL/min >60 [facility] Comment on above: Non- GFR Calc Free Triiodothyronine (T3) pg/dL 2.3 pg/mL 2.18-3.98 [facility] Immunoglobulin E 629 IU/mL 6-495 [facility] Comment on above: Performed at: [employer] [address] [id number] Director: Rolo Castle PhD, Phone: [phone] at: [address] [id number] Director: Joceline Do MD, Phone: [phone] Miscellaneous Test See comment [facility] Comment on above: TEST RESULT LIMITSIB D Expanded PanelgASCA 14 units 0-50 Negative <45 Equivocal 45 - 50 Positive >50ACCA 117 High units 0-90 Negative <80 Equivocal 80 - 90 Positive >90ALCA 31 units 0-60 Negative <55 Equivocal 55 - 60 Positive >60AMCA 98 units 0-100 Negative < 90 Equivocal 90 - 100 Positive >100 This test was developed and its performance characteristics determined by [employer]. It has not been cleared or approved by the Food and Drug Administration. The FDA has determined that such clearance or approval is not necessary.Atypical pANCA Negative NegativeComments AbnormalSuggestive of Crohn's Disease. Pattern is not conclusive for disease behavior risk stratification. TESTING PERFORMED AT [facility]. ORIGINAL REPORT ON FILE IN LAB CONTAINS ADDITIONAL TEST SITE INFORMATION. COLD HEADER Antibody <0.2 AI 0.0-0.9 [facility] Thyroid Stimulating Hormone (TSH) 0.32 uIU/mL 0.358-3.74 [facility] Platelets bldOrdered By: Sami Chin on 12-09-2022 Platelets (Bld) [#/Vol] 226 10*3/uL 150-450 [facility] Serum DNA double strand anti body assay (units/volume)Ordered By: Marco Chin on 12-09-2022 DNA double strand Ab Qn (S) 1 [IU]/mL 0-9 [facility] Comment on above: Negative <5 Equivoca l 5 - 9 Positive >9 Serum Opal-1 antibody assay (u nits/volume)Ordered By: Marco Chin on 12-09-2022 Opal-1 extractable nuclear Ab Qn (S) <0.2 AI 0.0-0.9 [facility] Serum Scl-70 extractable nuc lear antibody assay (units/volume)Ordered By: Marco Chin on 12-09-2022 SCL-70 extractable nuclear Ab Qn (S) <0.2 AI 0.0-0.9 [facility] Serum Phillips extractable nucl ear antibody detectionOrdered By: Marco Chin on 12-09-2022 Phillips extractable nuclear Ab Ql (S) <0.2 AI 0.0-0.9 [facility] Serum [id number] measu rement by electrophoresisOrdered By: Marco Chin on 12-09-2022 Alpha 1 globulin Elph [Mass/Vol] 0.2 g/dL 0.0-0.4 [facility] Alpha 1 globulin Elph [Mass/Vol] 0.9 g/dL 0.4-1.0 [facility] Serum classic neutrophil cyt oplasmic antibody assay (units/volume)Ordered By: Marco Chin on 12-09-2022 Neutrophil cytoplasmic Ab.classic Qn (S) <1:20 titer Neg:<1:20 [facility] Serum globulin measurement ( mass/volume)Ordered By: Marco Chin on 12-09-2022 Globulin (S) [Mass/Vol] 2.7 g/dL 2.2-3.9 [facility] Serum or plasma C reactive p rotein measurement (mass/volume)Ordered By: Marco Chin on 12-09-2022 CRP [Mass/Vol] mg/L 0.0-3.0 [facility] Comment on above: C-Reactive Protein ( CRP) provides useful information for thediagnosis, therapy and monitoring of inflammatory processesand associated diseases. For the evaluation of Relative Riskfor Cardiovascular Disease, a High Sensitivity CRP (HSCRP)should be ordered. Serum or plasma IgA measurem ent (mass/volume)Ordered By: Marco Chin on 12-09-2022 IgA [Mass/Vol] 138 mg/dL 64-422 [facility] Serum or plasma IgG measurem ent (mass/volume)Ordered By: Marco Chin on 12-09-2022 IgG [Mass/Vol] 739 mg/dL [id number] [facility] Serum or plasma IgM measurem ent (mass/volume)Ordered By: Marco Chin on 12-09-2022 IgM [Mass/Vol] 75 mg/dL 26-217 [facility] Serum or plasma albumin noemi urement (mass/volume)Ordered By: Marco Chin on 12-09-2022 Albumin [Mass/Vol] 3.2 g/dL 3.2-5.0 [facility] Serum or plasma albumin/glob ulin mass ratioOrdered By: Marco Chin on 12-09-2022 Albumin/Globulin [Mass ratio] 1.0 {ratio} 0.9-2.4 [facility] Serum or plasma beta globuli n measurement by electrophoresis (mass/volume)Ordered By: Marco Chin on 12-09-2022 Beta globulin Elph [Mass/Vol] 0.9 g/dL 0.7-1.3 [facility] Serum or plasma calcium noemi urement (mass/volume)Ordered By: Marco Chin on 12-09-2022 Calcium [Mass/Vol] 9.1 mg/dL 8.5-10.1 [facility] Serum or plasma creatinine m easurement (mass/volume)Ordered By: Marco Chin on 12-09-2022 Creatinine [Mass/Vol] 1.64 mg/dL 0.55-1.02 [facility] Comment on above: The validity of the calculated GFR & GFRAA in patients over 70 years has not been determined. Clinical correlation is essential. Serum or plasma gamma globul in measurement by electrophoresis (mass/volume)Ordered By: Marco Chin on 12-09-2022 Gamma globulin Elph [Mass/Vol] 0.7 g/dL 0.4-1.8 [facility] Serum or plasma gastrin noemi urement (mass/volume)Ordered By: Marco Chin on 12-09-2022 Gastrin [Mass/Vol] 467 pg/mL 0-115 [facility] Comment on above: Siemens Immulite 200 0 Immunochemiluminometric assay (ICMA)Values obtained with different assay methods or kits cannotbe used interchangeably. Results cannot be interpreted asabsolute evidence of the presence or absence of malignantdisease. Serum or plasma immunoelectr ophoresis interpretation (nominal result)Ordered By: Marco Chin on 12-09-2022 Interpretation IEP [Interp] Comment . [facility] Comment on above: No monoclonality det ected. Serum or plasma urea nitroge n measurement (mass/volume)Ordered By: Marco Chin on 12-09-2022 Urea nitrogen [Mass/Vol] 20 mg/dL 7-18 [facility] Serum parietal cell antibody assay (units/volume)Ordered By: Marco Chin on 12-09-2022 Parietal cell Ab Qn (S) 4.3 Units 0.0-20.0 [facility] Comment on above: Negative 0.0 - 20.0 Equivocal 20.1 - 24.9 Positive >24.9Parietal Cell Antibodies are found in 90% of patientswith pernicious anemia and 30% of first degreerelatives with pernicious anemia. Serum perinuclear neutrophil cytoplasmic antibody titer by immunofluorescenceOrdered By: Marco Chin on 12-09-2022 Neutrophil cytoplasmic Ab.perinuclear IF (S) [Titer] <1:20 titer Neg:<1:20 [facility] Comment on above: The presence of posi tive fluorescence exhibiting P-ANCA orC-ANCA patterns alone is not specific for the diagnosis ofWegener's Granulomatosis (WG) or microscopic polyangiitis.Decisions about treatment should not be based solely onANCA IFA results. The International ANCA Group Consensusrecommends follow up testing of positive sera with both ME-3 and MPO-ANCA enzyme immunoassays. As many as 5% serumsamples are positive only by EIA. Ref. AM J Clin [id number];111:507-513. Serum tissue transglutaminas e IgA antibody assay (units/volume)Ordered By: Marco Chin on 12-09-2022 tTG IgA Qn (S) <2 U/mL 0-3 [facility] Comment on above: Negative 0 - 3 Weak Positive 4 - 10 Positive >10 Tissue Transglutaminase (tTG) has been identified as the endomysial antigen. Studies have demonstr- ated that endomysial IgA antibodies have over 99% specificity for gluten sensitive enteropathy. Thin prep Papanicolaou smear with manual screeningOrdered By: Marco Chin on 12-09-2022 Thin prep Papanicolaou smear with manual screening 13 U/L 15-37 [facility] Thin prep Papanicolaou smear with manual screening 8 5-15 [facility] Thin prep Papanicolaou smear with manual screening 1.3 0.7-1.7 [facility] Total protein bloodOrdered B y: Marco Chin on 12-09-2022 Protein [Mass/Vol] 6.2 g/dL 6.0-8.5 [facility] Basophil percentageOrdered B y: Dr. Huizar on 11-14-2022 Chloride [Moles/Vol] 108 mmol/L 98-107 [facility] Glucose [Mass/Vol] 137 mg/dL 74-106 [facility] Comment on above: Fasting Glucose resu lt greater than or equal to 126 mg/dL suggests DIABETES MELLITUS per A.D.A. criteria. Potassium [Moles/Vol] 4.2 mmol/L 3.5-5.1 [facility] Sodium [Moles/Vol] 139 mmol/L 136-145 [facility] WBC (Bld) [#/Vol] 7.9 10*3/uL 4.4-11.0 [facility] Blood erythrocytes count (nu mber/volume)Ordered By: Dr. Huizar on 11-14-2022 RBC (Bld) [#/Vol] 3.63 10*6/uL 4.2-5.4 [facility] Blood hemoglobin measurement (mass/volume)Ordered By: Dr. Huizar on 11-14-2022 Hemoglobin (Bld) [Mass/Vol] 10.6 g/dL 12.0-15.0 [facility] Blood platelet mean volumeOr dered By: Dr. Huizar on 11-14-2022 Platelet mean volume (Bld) [Entitic vol] 10.9 fL 6.2-12.0 [facility] Determination of erythrocyte mean corpuscular volume (MCV)Ordered By: Dr. Huizar on 11-14-2022 MCV (RBC) [Entitic vol] 89.0 fL 81-99 [facility] Glucose Glucometer (BldC) [M ass/Vol]Ordered By: Dr. Huizar on 11-14-2022 Glucose [Mass/Vol] 172 mg/dL 74-106 [facility] Comment on above: MANAGEMENT OF PATIEN T CARE PER NURSING PROTOCOL Hematocrit Auto (Bld) [Volum e fraction]Ordered By: Dr. Huizar on 11-14-2022 Hematocrit (Bld) [Volume fraction] 32.3 % 37-47 [facility] - Chemistry and C hemistry - challengeOrdered By: Dr. Huizar on 11-14-2022 CO2 [Moles/Vol] 24.0 mmol/L 21.0-32.0 [facility] Urea nitrogen/Creatinine [Mass ratio] 12.5 mg/mg 10-20 [facility] - Hematology and Cell countsOrdered By: Dr. Huizar on 11-14-2022 Erythrocyte distribution width (RBC) [Entitic vol] 39.9 fL 35.1-43.9 [facility] Erythrocyte distribution width (RBC) [Ratio] 12.3 % 11.6-14.6 [facility] MCH (RBC) [Entitic mass] 29.2 pg 27.0-32.0 [facility] MCHC Auto (RBC) [Mass/Vol]Or dered By: Dr. Huizar on 11-14-2022 MCHC (RBC) [Mass/Vol] 32.8 g/dL 32-36 [facility] No Panel InformationOrdered By: Dr. Huizar on 11-14-2022 Estimated Creatinine Clearance Calc 34.17 ml/min [facility] Estimated GFR (MDRD) Amer 52 mL/min >60 [facility] Comment on above: GFR Calc Estimated GFR (MDRD) Non-Af Amer 43 mL/min >60 [facility] Comment on above: Non- GFR Calc Platelets bldOrdered By: Dr. Huizar on 11-14-2022 Platelets (Bld) [#/Vol] 174 10*3/uL 150-450 [facility] Serum or plasma calcium noemi urement (mass/volume)Ordered By: Dr. Huizar on 11-14-2022 Calcium [Mass/Vol] 8.3 mg/dL 8.5-10.1 [facility] Serum or plasma creatinine m easurement (mass/volume)Ordered By: Dr. Huziar on 11-14-2022 Creatinine [Mass/Vol] 1.28 mg/dL 0.55-1.02 [facility] Comment on above: The validity of the calculated GFR & GFRAA in patients over 70 years has not been determined. Clinical correlation is essential. Serum or plasma urea nitroge n measurement (mass/volume)Ordered By: Dr. Huizar on 11-14-2022 Urea nitrogen [Mass/Vol] 16 mg/dL 7-18 [facility] Thin prep Papanicolaou smear with manual screeningOrdered By: Dr. Huizar on 11-14-2022 Thin prep Papanicolaou smear with manual screening 7 5-15 [facility] INR in Blood by Coagulation assayOrdered By: Dr. Raines on 11-05-2022 INR Coag (Bld) [Relative time] 1.1 {INR} [facility] Laboratory - CoagulationOrde red By: Dr. Raines on 11-05-2022 aPTT Coag (Bld) [Time] 29.2 s 24.1-36.2 [facility] PT Coag (PPP) [Time] 14.1 s 11.7-14.9 [facility] Absolute lymphocyte countOrd ered By: Dr. Koehler on 10-16-2022 Lymphocytes Auto (Unsp spec) [#/Vol] 1.19 10*3/uL 0.83-4.51 [facility] Basophil percentageOrdered B y: Dr. Koehler on 10-16-2022 Basophil percentage 0-5 SEEN /hpf 0-5 [facility] Basophil percentage 3.9 mg/dL 2.5-4.9 [facility] Basophils/100 WBC (Bld) 1.5 % 0-1 [facility] Bilirubin [Mass/Vol] 0.60 mg/dL 0.20-1.00 [facility] Comment on above: For patients on eltr ombopag therapy, use of Dimension [place] TBIL is not recommended. Chloride [Moles/Vol] 108 mmol/L 98-107 [facility] Cholesterol [Mass/Vol] 124 mg/dL <200 [facility] Comment on above: <200 mg/dL Desirable 200-240 mg/dL Borderline >240 mg/dL High Risk Eosinophils/100 WBC (Bld) 10.0 % 0-5 [facility] Glucose [Mass/Vol] 103 mg/dL 74-106 [facility] Comment on above: Fasting Glucose resu lt from 100 to 125 mg/dL suggests IMPAIRED HOMEOSTASIS per A.D.A. criteria. Neutrophils (Bld) [#/Vol] 4.7 10*3/uL 2.0-7.7 [facility] Neutrophils/100 WBC (Bld) 63.8 % 47-70 [facility] Potassium [Moles/Vol] 4.7 mmol/L 3.5-5.1 [facility] Protein [Mass/Vol] 6.2 g/dL 6.4-8.2 [facility] Sodium [Moles/Vol] 140 mmol/L 136-145 [facility] Triglyceride [Mass/Vol] 86 mg/dL <199 [facility] Comment on above: The drugs N-Acetylcy steine and Metamizole may falsely depress this assay.Serum Triglycerides Reference Interval Normal <150 mg/dL Borderline high 150 - 199 mg/dL High 200 - 499 mg/dL Very High > or = 500 mg/dL WBC (Bld) [#/Vol] 7.3 10*3/uL 4.4-11.0 [facility] Bilirubin Test strip Ql (U)O rdered By: Dr. Koehler on 10-16-2022 Bilirubin Ql (U) Negative Negative [facility] Blood erythrocytes count (nu mber/volume)Ordered By: Dr. Koehler on 10-16-2022 RBC (Bld) [#/Vol] 3.85 10*6/uL 4.2-5.4 [facility] Blood hemoglobin measurement (mass/volume)Ordered By: Dr. Koehler on 10-16-2022 Hemoglobin (Bld) [Mass/Vol] 10.9 g/dL 12.0-15.0 [facility] Blood lymphocytes/100 leukoc ytesOrdered By: Dr. Koehler on 10-16-2022 Lymphocytes/100 WBC (Bld) 16.3 % 19-41 [facility] Blood monocytes/100 leukocyt esOrdered By: Dr. Koehler on 10-16-2022 Monocytes/100 WBC (Bld) 8.1 % 0-10 [facility] Blood platelet mean volumeOr dered By: Dr. Koehler on 10-16-2022 Platelet mean volume (Bld) [Entitic vol] 11.3 fL 6.2-12.0 [facility] Determination of erythrocyte mean corpuscular volume (MCV)Ordered By: Dr. Koehler on 10-16-2022 MCV (RBC) [Entitic vol] 90.1 fL 81-99 [facility] Hematocrit Auto (Bld) [Volum e fraction]Ordered By: Dr. Koehler on 10-16-2022 Hematocrit (Bld) [Volume fraction] 34.7 % 37-47 [facility] Ketones Test strip Ql (U)Ord ered By: Dr. Koehler on 10-16-2022 Ketones Ql (U) Negative Negative [facility] Laboratory - Chemistry and C hemistry - challengeOrdered By: Dr. Koehler on 10-16-2022 ALP [Catalytic activity/Vol] 61 U/L 45-117 [facility] ALT [Catalytic activity/Vol] 21 U/L 13-56 [facility] CO2 [Moles/Vol] 25.0 mmol/L 21.0-32.0 [facility] Free T4 [Mass/Vol] 1.78 ng/dL 0.76-1.46 [facility] Globulin (S) [Mass/Vol] 2.8 g/dL 2.2-4.2 [facility] Urea nitrogen/Creatinine [Mass ratio] 25.3 mg/mg 10-20 [facility] - Hematology and Cell countsOrdered By: Dr. Koehler on 10-16-2022 Erythrocyte distribution width (RBC) [Entitic vol] 40.8 fL 35.1-43.9 [facility] Erythrocyte distribution width (RBC) [Ratio] 12.6 % 11.6-14.6 [facility] Immature granulocytes/100 WBC (Bld) 0.300 % 0.0-0.9 [facility] Comment on above: IG% - Immature Granu locytes (promyelocytes, myelocytes and metamyelocytes) > 1% indicates that a LEFT SHIFT is Present. MCH (RBC) [Entitic mass] 28.3 pg 27.0-32.0 [facility] Nucleated RBC/100 WBC (Bld) [Ratio] 0 % 0-5 [facility] MCHC Auto (RBC) [Mass/Vol]Or dered By: Dr. Koehler on 10-16-2022 MCHC (RBC) [Mass/Vol] 31.4 g/dL 32-36 [facility] Mucus LM Ql (Urine sed)Order ed By: Dr. Koehler on 10-16-2022 Mucus Ql (Urine sed) 0 SEEN /hpf [facility] Nitrite Test strip Ql (U)Ord ered By: Dr. Koehler on 10-16-2022 Nitrite Ql (U) Negative Negative [facility] No Panel InformationOrdered By: Dr. Koehler on 10-16-2022 Estimated GFR (MDRD) Amer 78 mL/min >60 [facility] Comment on above: GFR Calc Estimated GFR (MDRD) Non-Af Amer 64 mL/min >60 [facility] Comment on above: Non- GFR Calc Parathyroid Hormone (Intact) 67.7 pg/mL 18.4-80.1 [facility] Thyroid Stimulating Hormone (TSH) 0.02 uIU/mL 0.358-3.74 [facility] Urine Microalbumin/Creatinine Ratio 488.2 mg/g CRE <30 [facility] Vitamin D 25-Hydroxy 48.0 ng/mL [facility] Comment on above: Vitamin D 25(OH) Sta tus Range Deficiency <20 ng/mL (50nmol/L) Insufficiency 20 - 30 ng/mL (50 - 75 nmol/L) Sufficiency 30 - 100 ng/mL (75 - 250 nmol/L) Toxicity >100 ng/mL (>250 nmol/L) Platelets bldOrdered By: Dr. Koehler on 10-16-2022 Platelets (Bld) [#/Vol] 247 10*3/uL 150-450 [facility] Protein Test strip Ql (U)Ord ered By: Dr. Koehler on 10-16-2022 Protein Ql (U) 30 mg/dl Negative [facility] Serum or plasma albumin noemi urement (mass/volume)Ordered By: Dr. Koehler on 10-16-2022 Albumin [Mass/Vol] 3.4 g/dL 3.2-5.0 [facility] Serum or plasma albumin/glob ulin mass ratioOrdered By: Dr. Koehler on 10-16-2022 Albumin/Globulin [Mass ratio] 1.2 {ratio} 0.9-2.4 [facility] Serum or plasma calcium noemi urement (mass/volume)Ordered By: Dr. Koehler on 10-16-2022 Calcium [Mass/Vol] 8.9 mg/dL 8.5-10.1 [facility] Serum or plasma cholesterol in HDL measurement (mass/volume)Ordered By: Dr. Koehler on 10-16-2022 Cholesterol in HDL [Mass/Vol] 56 mg/dL >40 [facility] Comment on above: The drugs N-Acetylcy steine and Metamizole may falsely depress this assay. Reference Range HDL <40 mg/dL Low HDL Cholesterol HDL >or= 60 mg/dL High HDL Cholesterol Serum or plasma cholesterol in VLDL measurement (mass/volume)Ordered By: Dr. Koehler on 10-16-2022 Cholesterol in VLDL [Mass/Vol] 17 mg/dL 5-40 [facility] Serum or plasma creatinine m easurement (mass/volume)Ordered By: Dr. Koehler on 10-16-2022 Creatinine [Mass/Vol] 0.91 mg/dL 0.55-1.02 [facility] Comment on above: The validity of the calculated GFR & GFRAA in patients over 70 years has not been determined. Clinical correlation is essential. Serum or plasma low density lipoprotein (LDL) cholesterol measurement (mass/volume)Ordered By: Dr. Koehler on 10-16-2022 Cholesterol in LDL [Mass/Vol] 51 mg/dL 0-130 [facility] Serum or plasma urea nitroge n measurement (mass/volume)Ordered By: Dr. Koehler on 10-16-2022 Urea nitrogen [Mass/Vol] 23 mg/dL 7-18 [facility] Squamous epithelial cells de tection in urine sediment by light microscopyOrdered By: Dr. Koehler on 10-16-2022 Epithelial cells.squamous LM Ql (Urine sed) 0-5 SEEN /hpf 5-10 [facility] Thin prep Papanicolaou smear with manual screeningOrdered By: Dr. Koehler on 10-16-2022 Thin prep Papanicolaou smear with manual screening 15 U/L 15-37 [facility] Thin prep Papanicolaou smear with manual screening 7 5-15 [facility] Thin prep Papanicolaou smear with manual screening 228.0 mg/L NO RANGE EST. [facility] Urine blood detectionOrdered By: Dr. Koehler on 10-16-2022 RBC Ql (U) Negative Negative [facility] RBC Ql (U) 0 SEEN /hpf 0-5 [facility] Urine clarityOrdered By: Dr. Koehler on 10-16-2022 Clarity (U) Clear Clear [facility] Urine color determinationOrd ered By: Dr. Koehler on 10-16-2022 Color (U) Yellow Yellow [facility] Urine creatinine measurement (mass/volume)Ordered By: Dr. Koehler on 10-16-2022 Creatinine (U) [Mass/Vol] 46.70 mg/dL NO RANGE EST. [facility] Urine glucose detectionOrder ed By: Dr. Koehler on 10-16-2022 Glucose Ql (U) Normal mg/dl Normal [facility] Urine leukocyte esterase det ection by dipstickOrdered By: Dr. Koehler on 10-16-2022 Leukocyte esterase Test strip Ql (U) 25 /ul Negative [facility] Urine pHOrdered By: Dr. Linda figueroa on 10-16-2022 pH (U) 6.5 [pH] 5.0 - 8.0 [facility] Urine protein measurement (m ass/volume)Ordered By: Dr. Koehler on 10-16-2022 Protein (U) [Mass/Vol] 37.8 mg/dL 0.0-11.8 [facility] Urine protein/creatinine mas s ratioOrdered By: Dr. Koehler on 10-16-2022 Protein/Creatinine (U) [Mass ratio] 809 mg/g CRE 0-200 [facility] Urine sediment bacteria coun t by microscopy (number/high power field)Ordered By: Dr. Koehler on 10-16-2022 Bacteria LM.HPF (Urine sed) [#/Area] 3 /[HPF] None Seen [facility] Urine specific gravity measu rementOrdered By: Dr. Koehler on 10-16-2022 Specific gravity (U) [Rel density] 1.010 1.002-1.03 0 [facility] Urobilinogen Auto test strip Ql (U)Ordered By: Dr. Koehler on 10-16-2022 Urobilinogen Ql (U) Normal mg/dl Normal [facility] Whole blood hemoglobin A1c/t otal hemoglobin ratio (mass fraction)Ordered By: Dr. Koehler on 10-16-2022 HbA1c (Bld) [Mass fraction] 6.0 % 3.8-5.6 [facility] Comment on above: Normal < 5.7 % Predi abetic 5.7 - 6.4 % Diabetic >or= 6.5 % Please note range changes. Absolute lymphocyte countOrd ered By: Dr. Driver on 09-26-2022 Lymphocytes Auto (Unsp spec) [#/Vol] 1.30 10*3/uL 0.83-4.51 [facility] Basophil percentageOrdered B y: Dr. Driver on 09-26-2022 Basophils/100 WBC (Bld) 1.3 % 0-1 [facility] Bilirubin [Mass/Vol] 0.50 mg/dL 0.20-1.00 [facility] Comment on above: For patients on eltr ombopag therapy, use of Dimension [place] TBIL is not recommended. Chloride [Moles/Vol] 105 mmol/L 98-107 [facility] Eosinophils/100 WBC (Bld) 5.8 % 0-5 [facility] Glucose [Mass/Vol] 114 mg/dL 74-106 [facility] Comment on above: Fasting Glucose resu lt from 100 to 125 mg/dL suggests IMPAIRED HOMEOSTASIS per A.D.A. criteria. Neutrophils (Bld) [#/Vol] 4.6 10*3/uL 2.0-7.7 [facility] Neutrophils/100 WBC (Bld) 65.7 % 47-70 [facility] Potassium [Moles/Vol] 4.4 mmol/L 3.5-5.1 [facility] Protein [Mass/Vol] 6.1 g/dL 6.4-8.2 [facility] Sodium [Moles/Vol] 139 mmol/L 136-145 [facility] WBC (Bld) [#/Vol] 7.0 10*3/uL 4.4-11.0 [facility] Blood erythrocytes count (nu mber/volume)Ordered By: Dr. Driver on 09-26-2022 RBC (Bld) [#/Vol] 3.80 10*6/uL 4.2-5.4 [facility] Blood hemoglobin measurement (mass/volume)Ordered By: Dr. Driver on 09-26-2022 Hemoglobin (Bld) [Mass/Vol] 11.1 g/dL 12.0-15.0 [facility] Blood lymphocytes/100 leukoc ytesOrdered By: Dr. Driver on 09-26-2022 Lymphocytes/100 WBC (Bld) 18.5 % 19-41 [facility] Blood monocytes/100 leukocyt esOrdered By: Dr. Driver on 09-26-2022 Monocytes/100 WBC (Bld) 8.3 % 0-10 [facility] Blood platelet mean volumeOr dered By: Dr. Driver on 09-26-2022 Platelet mean volume (Bld) [Entitic vol] 11.1 fL 6.2-12.0 [facility] CNOVon 09-26-2022 CNOV Office Visit (GENSWS ) ----- EVERTON BEATTY ([id number]) 1945 F Date Time Provider Department 09/26/22 10:30 AM RAJESH GARCIA During your visit today, we recorded the following information about you: Temperature Pulse Weight 97.3 degrees 76/minute 110.7 kg Rajesh Garcia MD 09/26/2022 4:39 PM Signed FOLLOW UP VISIT - ENDOSCOPY NAME: Everton Beatty CLINIC NO.: [id number] DATE OF SERVICE: 09/26/2022 : 1945 REFERRING PHYSICIAN: Marta Koehler MD Everton is a patient I am following for abnormal weight loss. The patient is a 76 year old female referred for endoscopy. Everton notes issues related to alternating between constipation [...] a week ago all her symptoms returned. Everton has undergone prior endoscopy. There went colonoscopy she does not quite remember when this happened. She has never had upper endoscopy. The patient is being seen by me at the request of Dr. Marta Koehler MD for my opinion and advice regarding [...] had a gastric emptying study performed at [facility] which was normal. If her symptoms persist (more content not included)... Normal [facility] Determination of erythrocyte mean corpuscular volume (MCV)Ordered By: Dr. Driver on 09-26-2022 MCV (RBC) [Entitic vol] 90.8 fL 81-99 [facility] Hematocrit Auto (Bld) [Volum e fraction]Ordered By: Dr. Driver on 09-26-2022 Hematocrit (Bld) [Volume fraction] 34.5 % 37-47 [facility] - Chemistry and C hemistry - challengeOrdered By: Dr. Driver on 09-26-2022 ALP [Catalytic activity/Vol] 63 U/L 45-117 [facility] ALT [Catalytic activity/Vol] 25 U/L 13-56 [facility] CO2 [Moles/Vol] 27.0 mmol/L 21.0-32.0 [facility] Globulin (S) [Mass/Vol] 2.9 g/dL 2.2-4.2 [facility] Urea nitrogen/Creatinine [Mass ratio] 15.5 mg/mg 10-20 [facility] - Hematology and Cell countsOrdered By: Dr. Driver on 09-26-2022 Erythrocyte distribution width (RBC) [Entitic vol] 41.5 fL 35.1-43.9 [facility] Erythrocyte distribution width (RBC) [Ratio] 12.6 % 11.6-14.6 [facility] Immature granulocytes/100 WBC (Bld) 0.400 % 0.0-0.9 [facility] Comment on above: IG% - Immature Granu locytes (promyelocytes, myelocytes and metamyelocytes) > 1% indicates that a LEFT SHIFT is Present. MCH (RBC) [Entitic mass] 29.2 pg 27.0-32.0 [facility] Nucleated RBC/100 WBC (Bld) [Ratio] 0 % 0-5 [facility] MCHC Auto (RBC) [Mass/Vol]Or dered By: Dr. Driver on 09-26-2022 MCHC (RBC) [Mass/Vol] 32.2 g/dL 32-36 [facility] No Panel InformationOrdered By: Dr. Driver on 09-26-2022 Estimated GFR (MDRD) Amer 72 mL/min >60 [facility] Comment on above: GFR Calc Estimated GFR (MDRD) Non-Af Amer 60 mL/min >60 [facility] Comment on above: Non- GFR Calc Platelets bldOrdered By: Dr. Driver on 09-26-2022 Platelets (Bld) [#/Vol] 228 10*3/uL 150-450 [facility] Serum or plasma albumin noemi urement (mass/volume)Ordered By: Dr. Driver on 09-26-2022 Albumin [Mass/Vol] 3.2 g/dL 3.2-5.0 [facility] Serum or plasma albumin/glob ulin mass ratioOrdered By: Dr. Driver on 09-26-2022 Albumin/Globulin [Mass ratio] 1.1 {ratio} 0.9-2.4 [facility] Serum or plasma calcium noemi urement (mass/volume)Ordered By: Dr. Driver on 09-26-2022 Calcium [Mass/Vol] 9.0 mg/dL 8.5-10.1 [facility] Serum or plasma creatinine m easurement (mass/volume)Ordered By: Dr. Driver on 09-26-2022 Creatinine [Mass/Vol] 0.97 mg/dL 0.55-1.02 [facility] Comment on above: The validity of the calculated GFR & GFRAA in patients over 70 years has not been determined. Clinical correlation is essential. Serum or plasma urea nitroge n measurement (mass/volume)Ordered By: Dr. Driver on 09-26-2022 Urea nitrogen [Mass/Vol] 15 mg/dL 7-18 [facility] Thin prep Papanicolaou smear with manual screeningOrdered By: Dr. Driver on 09-26-2022 Thin prep Papanicolaou smear with manual screening 19 U/L 15-37 [facility] Thin prep Papanicolaou smear with manual screening 7 5-15 [facility] CREATININE BLDon 09-20-2022 Creatinine [Mass/Vol] 0.96 mg/dL Normal 0.58-0.96 [facility] Comment on above: Order Comment: Speci men Type: BLOOD SPECIMEN Ordering Facility: [facility] Address: [address] [place] [address] Performed By: #### C RET1 #### [facility] [id number] [address] [place] [address] OF [facility] ESTIMATED GLOMERULAR FILTRATION RATE 62 mL/min/1.73m??? Normal >=60 [facility] Comment on above: Order Comment: Sadia garg Type: BLOOD SPECIMEN Ordering Facility: [facility] Address: [address] [place] [address] Result Comment: Nvoa mated Glomerular Filtration Rate (eGFR) is calculated using the 2020 CKD-EPI creatinine equation. This equation utilizes serum creatinine, sex, and age as parameters. The creatinine assay has traceable calibration to isotope dilution-mass spectrometry. Refer to KDIGO guidelines for clinical interpretation. In patients with unstable renal function, e.g. those with acute kidney injury, the eGFR may not accurately reflect actual GFR. Performed By: #### C RET1 #### [facility] CLIA [id number] [address] [place] [address] KIDNEY/PELVIS WO/W IVCONo n 09-20-2022 CT KIDNEY/PELVIS WO/W IVCON * * *Final Report* * * DATE OF EXAM: Sep 20 2022 12:15PM [facility] 0547 - CT KIDNEY/PELVIS WO/W IVCON / PROCEDURE REASON: Abnormal weight loss * * * * Physician Interpretation * * * * EXAMINATION: CT ABDOMEN (KIDNEY) WITHOUT AND WITH IV CONTRAST; CT PELVIS WITH IV CONTRAST CLINICAL HISTORY: Left renal mass TECHNIQUE: Spiral imaging in three phases through the kidneys and including the abdomen and pelvis was performed utilizing IV contrast only. No oral contrast was given. Arterial phase MIP, and nephrographic phase oblique coronal and sagittal reformations were created from thin-slice images under physician supervision on the imaging modality workstation. MQ: [id number] Contrast: IV: 120 ml of Omnipaque 350 Oral Contrast: None CT Radiation dose: Integrated dose-length product (DLP) for this visit = 2053 mGy*cm. CT Dose Reduction Employed: Automated exposure control(AEC) and iterative recon COMPARISON: None. RESULT: Renal mass assessment RIGHT: Right kidney: Normal, without mass or calculus. Right renal vasculature: Arterial anatomy: Single. No early branch ( no branch within 1 cm of ostia). Venous anatomy: single. Right ureter: Single ureter. No hydronephrosis. Right adrenal: Normal, no nodules or thickening LEFT: Left kidney: Enhancing mass partially exophytic from the upper pole measures 5 x 5.3 x 5 cm. The mass extends into the upper left renal hilum. Left renal vasculature: Arterial anatomy: Single. No early branch ( no branch within 1 cm of ostia). Venous anatomy: single. Left ureter: Single ureter. No hydronephrosis. Left adrenal: 2.1 x 1.2 cm left adrenal nodule which measures less than 10 Hounsfield units on precontrast imaging, consistent with a lipid rich adenoma. Retroperitoneal lymphadenopathy and IVC involvement: No retroperitoneal lymphadenopathy. No IVC tumor thrombus. Abdomen and pelvis: Liver: No mass. Normal morphology. Biliary: No bile duct dilation. Spleen: No mass. No splenomegaly. Pancreas: No mass or duct dilation. GI tract: No dilation or wall thickening. Lymph nodes (other): No abdominal or pelvic lymphadenopathy. Mesentery/Peritoneum: No ascites or mass. Retroperitoneum: No mass. Vasculature (other): Vasculature: - Abdominal aorta and iliac arteries: Atherosclerotic calcifications without aneurysm. - Celiac and SMA: Patent without stenosis. - Portal venous system (SMV, splenic vein, portal vein and branches): Patent. - Hepatic veins: Patent. - IVC and iliac veins: Patent iliac veins and IVC without thrombus. Pelvis: No mass, ascites or fluid collection. The bladder has a normal appearance. Bones/Soft Tissues: Degenerative changes. Lower thorax: No pleural effusion or consolidation IMPRESSION: Enhancing mass in the upper pole of the left kidney likely represents renal cell carcinoma Inventory Control Specialist: GWENDOLYN Transcribe Date/Time: Sep 20 2022 2:07P Dictated by : RAMANDEEP WISDOM MD This examination was interpreted and the report reviewed and electronically signed by: RAMANDEEP WISDOM MD on Sep 20 2022 2:23PM EST [id number] Normal [facility] ANES POSTPROC EVALon 022 ANES POSTPROC EVAL HNO ID: [id number] Author: César Kerns APRN.TERMINAL MAKEUP OPERATOR Service: Anesthesiology Author Type: Nurse [employer] Equipment Mechanic Supervisor Type: Anesthesia Postprocedure Evaluation Filed: 09/19/2022 11:01 AM Note Text: POST ANESTHESIA EVALUATION NOTE : 1945 Procedure Summary Date: 09/19/22 Room / Location: SURGERY Anesthesia Start: 1015 Anesthesia Stop: 1100 Procedures: EGD DIAGNOSTIC COLONOSCOPY DIAGNOSTIC Diagnosis: Abnormal weight loss Abdominal pain, unspecified abdominal location Scheduled Providers: Danica Smith MD; César Kerns APRN.TERMINAL MAKEUP OPERATOR Responsible Provider: César Kerns APRN.TERMINAL MAKEUP OPERATOR Anesthesia Type: MAC ASA Status: 3 Anesthesia Type: MAC Last Vitals Vitals Value Taken Time BP 09/19/22 1100 Temp 09/19/22 1100 Pulse 09/19/22 1100 Resp 09/19/22 1100 SpO2 09/19/22 1100 Post Anesthesia Patient Status Patient Evaluation: PACU. Anticipated Disposition: phase 2 then home. Neurological Status: aware and responsive. Pulmonary Status: breathing comfortably on room air Airway Control: returned to baseline unsupported. Cardiovascular Status: stable. Pain Management: clinically adequate Postoperative Hydration: acceptable. Intraoperative Events: no significant anesthesia events Post Operative Nausea/Vomiting Status: no significant post operative nausea or vomiting Recommendation: continue current plan of care. Anesthesia Observations No Documentation SIGNATURE: César Kerns APRN.TERMINAL MAKEUP OPERATOR PATIENT NAME: Everton Beatty DATE: September 19, 2022 TIME: 11:00 AM CSN: [id number] Normal [facility] ANES PRE-OPon 09-19-2022 ANES PRE-OP HNO ID: [id number] Author: César Kerns APRN.TERMINAL MAKEUP OPERATOR Service: Anesthesiology Author Type: Nurse [employer] Equipment Mechanic Supervisor Type: Anesthesia Preprocedure Evaluation Filed: 09/19/2022 9:52 AM Note Text: ANESTHESIOLOGY DAY OF SURGERY NOTE : 1945 Procedure Information Date/Time: 09/19/22 1030 Scheduled providers: Danica Smith MD; César Kerns APRN.TERMINAL MAKEUP OPERATOR Procedures: EGD DIAGNOSTIC COLONOSCOPY DIAGNOSTIC Location: LD SURGERY Estimated body mass index is 42.69 kg/m? as calculated from the following: Height as of 08/29/22: 160 cm (5' 3"). Weight as of 08/29/22: 109.3 kg (241 lb). Most recent hematocrit and potassium results: No results found for this basename: HCT,HEMATOCRIT,K,POTASSIU M Relevant Problems ENDO (+) Hypothyroidism (+) Type II or unspecified type diabetes mellitus without mention of complication, uncontrolled I - PHYSICAL EVALUATION AIRWAY Patient intubated: No. Tracheostomy tube not present Mallampati: III. TM distance: >3 FB. Neck ROM: full ROM without neurological symptoms. Mouth opening: adequate. Short neck: no. Thick neck: no Knutson present: no DENTAL Dental findings: teeth intact. Additional exam findings: no II - ANESTHESIA PLAN ASA Score: 3 Anesthetic Plan: MAC The patient is not a current smoker. NPO Status: adequate Beta Trav Administration of chronic beta trav medication not planned. Monitoring Plan Monitoring plan: standard ASA. Post Procedure Analgesic Plan Postoperative analgesic plan: per surgical service. Informed Consent Anesthetic risks, benefits, alternatives, personnel and consent discussed: yes. Patient / Responsible Constitution Party agrees to proceed: yes Patient / Surrogate agrees to blood products: blood products not planned DNR status reviewed with patient and/or family prior to surgery. patient elects to suspend DNR status in the perioperative setting (Full Code). Significant changes in the patient condition since the History and Physical, not otherwise documented in primary service progress note: no. Potential Anesthesia issues that may suggest increased risk of complications or contraindication to planned procedure: none and potential difficult intubation. No vitals data found for the desired time range. Outpatient Medications as of 09/19/2022 Medication Sig - apremilast (OTEZLA ORAL) Take 30 mg by mouth twice daily. - amLODIPine-benazepril (LOTREL) 2.5-10 mg per capsule Take 1 capsule by mouth once daily. - calcium carbonate 600 mg-cholecalciferol 200 units 600 mg-5 mcg (200 unit) tab Take 2 tablets by mouth once daily. - ALBUTEROL 90 MCG/ACTUATION AEROSOL INHALER Inhale 2 Puffs as instructed as needed. SHAKE WELL BEFORE USING - iv contrast (will be provided with radiology test) CT KIDNEY/PEL- Inject, intravenously, once for 1 dose.No IV access, insert saline lock prior to the beginning of sedation, infusion, injection of imaging exam. Discontinue saline lock post exam. If Pt. has a central line or IVAD, may access for administration according to line specific nursing protocol. Once exam is complete flush line and de-access according to line specific nursing protocol in the CT contrast administration guidelines link. - iv contrast (will be provided with radiology test) CT kidney wow Inject, intravenously, once for 1 dose.No IV access, insert saline lock prior to the beginning of sedation, infusion, injection of imaging exam. Discontinue saline lock post exam. If Pt. has a central line or IVAD, may access for administration according to line specific nursing protocol. Once exam is complete flush line and de-access according to line specific nursing protocol in the CT contrast administration guidelines link. - famotidine (PEPCID) 20 mg tablet take 1 tablet by mouth once daily 30 TO 45 MINUTES BEFORE DINNER - ondansetron orally disintegrating (ZOFRAN ODT) 4 mg disintegrating tablet dissolve 1 tablet ON TONGUE every 8 hours if needed (Patient not taking: Reported on 08/29/2022) - melatonin 10 mg cap Take 10 mg by mouth once daily. - DETROL LA 4 mg 24 hr capsule TAKE 1 CAPSULE DAILY (Patient not taking: Reported on 08/29/2022) - levocetirizine dihydrochloride (XYZAL ORAL) Take by mouth once daily. - esomeprazole magnesium (NEXIUM ORAL) Take by mouth. (Patient not taking: Reported on 08/29/2022) - furosemide (LASIX ORAL) Take by mouth. (Patient not taking: Reported on 08/29/2022) - levothyroxine sodium (SYNTHROID ORAL) Take 200 mcg by mouth once daily. - methocarbamol (ROBAXIN ORAL) Take by mouth. (Patient not taking: Reported on 08/29/2022) - insulin glargine,hum.rec.anlog (LANTUS SUBCUTANEOUS) Inject subcutaneously. (Patient not taking: Reported on 08/29/2022) - MULTIVITAMIN ORAL Take by mouth. - CALCIUM ORAL Take by mouth. (Patient not taking: Reported on 08/29/2022) - sitagliptin phosphate (JANUVIA ORAL) Take 100 mg by mouth once daily. - POTASSIUM CHLORIDE ORAL Take by mo (more content not included)... Normal [facility] BRIEF OP NOTon 09-19-2022 BRIEF OP NOT HNO ID: [id number] Author: Danica Smith MD Service: General Surgery Author Type: Physician Type: Brief Op Note Filed: 09/19/2022 10:56 AM Note Text: BRIEF OPERATIVE NOTE SURGERY DATE: 09/19/2022 Incision/Procedure Start Time: 10:20 cecal intubation time: 10:38 Incision Close/Procedure End Time: 10:51 Surgeon(s)/Proceduralist( s) and Sports Book Server(s): Luis Procedures: EGD with biopsies Colonoscopy with [...] hemorrhoids SIGNATURE: Danica Smith MD PATIENT NAME: Everton Beatty DATE: September 19, 2022 TIME: 10:52 AM Acct: [id number] Normal [facility] GLUCOSE, BLOOD (POC)on 09-19 Glucose [Mass/Vol] 129 mg/dL Abnormal 74 - 99 mg/dL [facility] HISTORY PHYSICALon HISTORY PHYSICAL HNO ID: [id number] Author: Danica Smith MD Service: General Surgery Author Type: Physician Type: HANDP Filed: 09/19/2022 9:39 AM Note Text: HISTORY AND PHYSICAL Everton Beatty 1945 REFERRING PHYSICIAN: No ref. provider found CHIEF COMPLAINT: Consult (Vomiting, diarrhea, constipation for months ) HPI: The patient is a 76 year old female referred for endoscopy. Everton notes issues related to alternating between constipation [...] a week ago all her symptoms returned. Everton has undergone prior endoscopy. There went colonoscopy she does not quite remember when this happened. She has never had upper endoscopy. The patient is being seen by me today at the request of Dr. Marta Koehler MD for my opinion and advice regarding [...] ABD/PEL WO Routine order Administer, As Directed (more content not included)... Normal [facility] OPERATIVE NOon 09-19-2022 OPERATIVE NO HNO ID: [id number] Author: Danica Smith MD Service: General Surgery Author Type: Physician Type: Operative Report Filed: 09/20/2022 7:27 AM Note Text: [facility] - Operative Report - EVERTON Harris : 1945 AGE: 76. SEX: F PATIENT TYPE: O HOSP SVC: LOCATION: ATTENDING PHYSICIAN: CÉSAR KERNS [facility] NUMBER: [id number] DATE OF SURGERY/PROCEDURE: 09/19/2022 INCISION/PROCEDURE START TIME: 10:20 AM INCISION CLOSE/PROCEDURE END TIME: 10:51 AM PREOPERATIVE DIAGNOSIS: Abnormal weight loss, abdominal pain, change in bowel habits, and kidney mass. POSTOPERATIVE DIAGNOSIS: Abnormal weight loss, abdominal pain, change in bowel habits, and kidney mass, transverse colon polyp and hemorrhoids, very small hiatal hernia and minimally irregular GE junction. SURGEON: Danica Smith MD DAY TRADER: No Additional Staff SURGERY/PROCEDURE: Esophagogastroduodenoscop y with biopsies and colonoscopy with polypectomy. ANESTHESIA: Monitored anesthesia care. LOCATION: [facility]. INDICATIONS: Everton Beatty is a 76-year-old female who presents with abnormal weight loss, generalized abdominal pain, change in bowel habits and recently by a radiological study, she was found to have a kidney mass. She presents for upper and lower endoscopy. She has been counseled on the risks of procedure including, but not limited to infection, bleeding, perforation, GI tract requiring emergency surgery, inability to complete the procedure, complications, anesthesia, etc. The patient understands and agrees to proceed. DESCRIPTION OF PROCEDURE: After informed consent was given, the patient was brought to the endoscopy suite. Appropriate time-out protocol was done in the preprocedure area as well as in the endoscopy suite. The patient was given IV anesthesia by the anesthesia provider. The patient's posterior pharynx was sprayed with local anesthetic and a bite block was placed. The upper endoscope was lubricated, carefully inserted in the patient's mouth, and advanced into the esophagus. It was then advanced down into the stomach, past the pylorus into the first and then second portion of the duodenum. No masses, polyps, or ulcers were noted in the duodenum. The endoscope was retracted back in the stomach. There were no ulcers, masses, or polyps noted in the stomach. Because of the patient's complaint, mucosal biopsies of the antrum of the stomach were taken using cold grasper forceps. Retroflexed view into the fundus of the body of the stomach revealed no evidence of any masses or polyps or ulcers. The patient appeared to have very small hiatal hernia. In the stomach, the patient was noted to have a benign-appearing gastric fundic polyp for which it was biopsied. The endoscope was retracted back into the esophagus. The patient had a very minimally irregular GE junction and mucosal biopsies were therefore taken using cold grasper forceps. Remainder of the GE junction was biopsied using cold grasper forceps. The remainder of the esophagus appeared normal. The endoscope was removed intact. The patient tolerated this portion of procedure well. The next procedure performed was a colonoscopy. The colonoscope was lubricated and carefully inserted in the patient's anus and advanced into the rectum. It was then advanced into the sigmoid colon, then the left colon, past splenic flexure into the transverse colon, past hepatic flexure down the right colon into the cecum. The cecum was identified by confluence of taeniae coli, identification of ileocecal valve, appendiceal orifice, and external palpation. At this level, the colonoscope was slowly retracted back and entire colonic mucosal surface was examined. The colon cleansing preparation was suboptimal. There was still retained fecal material, however, with copious lavage and aspiration of the retained fecal contents; the colonic borjas could be visualized adequately. Because of the patient's complaint, random mucosal biopsies were taken throughout the colon. There were no masses, polyps, or lesions noted in the right colon. In the transverse colon, there appeared to be a small sessile, less than 1 cm colon polyp which was removed completely using cold grasper forceps. No masses, polyps, lesions were noted in the left colon. No masses, polyps, lesions were noted in the sigmoid colon. No masses or polyps were noted in the rectum. Retroflex view into the rectum revealed hemorrhoidal changes. The endoscope was removed intact. Digital examination of the anal canal revealed no palpable masses. The patient tolerated the procedure well, was brought to recovery room in stable condition. COMPLICATIONS: None. SPECIMENS: Antral mucosal biopsies, gastric fundic polyp biopsy, mucosal biopsy of GE junction, random mucosal biopsies of the colon and transverse colon polyp. ESTIMATED BLOOD LOSS: Minimal. Danica (more content not included)... Normal [facility] SURGICAL PATHOLOGYon CASE REPORT Normal [facility] Comment on above: Order Comment: Speci men Type: TISSUE SPECIMEN Ordering Facility: [facility] Address: [address] [place], [place] [id number] Result Comment: Surg ical Pathology Report Case: [id number] Authorizing Provider: Danica Smith MD Collected: 09/19/2022 10:22 AM Ordering Location: [facility] SURGERY Received: 09/20/2022 08:55 AM Pathologist: Hortencia Smith MD Specimens: A) - ANTRUM (STOMACH) BIOPSY, histology and test for h pylori B) - STOMACH (GASTRIC) POLYP BIOPSY, fundal C) - ESOPHAGOGASTRIC JUNCTION BIOPSY D) - TRANSVERSE COLON POLYP E) - COLON BIOPSY, random mucosal Performed By: #### S #### [facility] CLIA [id number] [address] FINAL DIAGNOSIS Normal [facility] Comment on above: Order Comment: Speci men Type: TISSUE SPECIMEN Ordering Facility: [facility] Address: [address] [place] [address] Result Comment: A. G astric antrum, biopsies: - Features of reactive gastropathy [...] Colon, random biopsies: - Unremarkable colonic mucosa. Performed By: #### S #### [facility] CLIA [id number] [address] FINAL PERFORMING LAB Normal [facility] Comment on above: Order Comment: Speci men Type: TISSUE SPECIMEN Ordering Facility: [facility] Address: [address] [place] [address] Result Comment: Diag nostic interpretation performed at [facility], [address] [place] [address] CLIA# [id number] Sports Agent: Giorgio Edwards M.D. Performed By: #### S #### [facility] CLIA [id number] [address] GROSS DESCRIPTION Normal [facility] Comment on above: Order Comment: Speci men Type: TISSUE SPECIMEN Ordering Facility: [facility] Address: [address] [place] [address] Result Comment: A. A NTRUM (STOMACH) BIOPSY Received in formalin labeled antrum (stomach) biopsy histology and test for H. pylori are 2 pieces of delgado, soft tissue aggregating to 0.7 x 0.2 x 0.2 cm. Totally submitted in one cassette. B. STOMACH (GASTRIC) POLYP BIOPSY Received in formalin labeled stomach (gastric) polyp biopsy are 2 pieces of delgado, soft tissue aggregating to 0.7 x 0.2 x 0.2 cm. Totally submitted in one cassette. C. ESOPHAGOGASTRIC JUNCTION BIOPSY Received in formalin labeled esophagogastric junction biopsy are multiple pieces of delgado, soft tissue aggregating to 0.9 x 0.2 x 0.2 cm. Totally submitted in one cassette. D. TRANSVERSE COLON POLYP Received in formalin labeled transverse colon polyp are 2 pieces of delgado, soft tissue aggregating to 0.7 x 0.2 x 0.2 cm. Totally submitted in one cassette. E. COLON BIOPSY Received in formalin labeled random mucosal colon biopsy are multiple pieces of delgado, soft tissue aggregating to 1.8 x 0.5 x 0.2 cm. Totally submitted in one cassette. Gross examination performed at [facility], [address] [place] [address] CLIA# [id number] [facility] September 20, 2022 11:06 AM Performed By: #### S #### [facility] CLIA [id number] [address] [id number] [facility] Roxane 09-17-2022 CNPN Telephone (GENArchsyS) ----- EVERTON BEATTY ([id number]) 1945 F Date Time Provider Department 09/17/22 RAJESH GARCIA GENROSINA During your visit today, we recorded the following information about you: Rajesh Garcia MD 09/17/2022 5:51 PM Signed Renal ultrasound demonstrated suspicion of solid mass [...] unable to get hold of her. Thanks-Rich Allergies As of Date: 09/17/2022 Noted Allergy Reaction BEE STING 12/18/2009 environmental [Other] 12/18/2009 Comments: Animals,dust, tree pollen, grass, weeds KETEK (TELITHROMYCIN) 12/18/2009 PENICILLINS 12/18/2009 SOAP 05/28/2010 4 - Hives Comments: caused by Lever 1999 soap Date Reviewed: 09/02/2022 Reviewed by: Constance Hernandez RT(R) - Fully Assessed Reason for Visit: Results [95] Primary Visit Diagnosis:Renal mass [N28.89] Order(s):CONSULT TO UROLOGY [9041] Order #: [id number]: 1 FUTURE Prescriptions as of 09/17/2022 - famotidine (PEPCID) 20 mg tablet take 1 tablet by mouth once daily 30 TO 45 MINUTES BEFORE DINNER - ondansetron orally disintegrating (ZOFRAN ODT) 4 mg disintegrating tablet dissolve 1 tablet ON TONGUE every 8 hours if needed - melatonin 10 mg cap Take 10 mg by mouth once daily. - DETROL LA 4 mg 24 hr capsule TAKE 1 CAPSULE DAILY - levocetirizine dihydrochloride (XYZAL ORAL) Take by mouth once daily. - esomeprazole magnesium (NEXIUM ORAL) Take by mouth. - furosemide (LASIX ORAL) Take by mouth. - levothyroxine sodium (SYNTHROID ORAL) Take 200 mcg by mouth once daily. - apremilast (OTEZLA ORAL) Take 30 mg by mouth twice daily. - methocarbamol (ROBAXIN ORAL) Take by mouth. - insulin glargine,hum.rec.anlog (LANTUS SUBCUTANEOUS) Inject subcutaneously. - MULTIVITAMIN ORAL Take by mouth. - CALCIUM ORAL Take by mouth. - sitagliptin phosphate (JANUVIA ORAL) Take 100 mg by mouth once daily. - POTASSIUM CHLORIDE ORAL Take by mouth. - glucosamine sulfate (GLUCOSAMINE ORAL) Take by mouth. - cetirizine HCl (ZYRTEC ORAL) Take by mouth. - montelukast sodium (SINGULAIR ORAL) Take 10 mg by mouth once daily. - ubidecarenone (COQ-10 ORAL) Take 100 mg by mouth once daily. - pravastatin sodium (PRAVASTATIN ORAL) Take 20 mg by mouth once daily. - GABAPENTIN ORAL Take by mouth. - amLODIPine-benazepril (LOTREL) 2.5-10 mg per capsule Take 1 capsule by mouth once daily. - mometasone/formoterol (DULERA INHALATION) Inhale as instructed once daily. - linaclotide (LINZESS ORAL) Take 290 mg by mouth as needed. - metronidazole (METROGEL TOPICAL) Apply to affected area. - acyclovir (ZOVIRAX ORAL) Take by mouth as needed. - albuterol sulfate (PROVENTIL INHALATION) Inhale as instructed. - ACYCLOVIR ORAL Take by mouth. - hydrocortisone (PROCTOSOL HC RECTAL) by RECTAL route. - beclomethasone dipropionate (QNASL NASAL) Use in the nose. - nystatin (MYCOSTATIN) cream Apply to affected area twice daily. - METHOCARBAMOL ORAL Take by mouth. - MEDICATION, NON-DATABASE Medical Marijuana - mirabegron (MYRBETRIQ) 25 mg Tb24 Take 1 tablet by mouth once daily. - beclomethasone dipropionate 80 mcg/actuation Use in the nose. - Hydrocodone-Acetaminophen 5-500 mg cap Take by mouth. - niacin sustained release (SLO-NIACIN) 500 mg ORAL tablet Take 1 tablet by mouth twice daily with meals. - levothyroxine 175 mcg ORAL tablet Take by mouth. 8.5 tabs per week - potassium chloride ER (K-DUR, KLOR-CON) 20 mEq tablet Take 20 mEq by mouth as needed. - glimepiride (AMARYL) 4 mg ORAL tablet Take 1 tablet by mouth twice daily with meals. - pioglitazone (ACTOS) 45 mg ORAL tablet Take 1 tablet by mouth once daily. - insulin glargine (LANTUS) 100 unit/mL SUBCUTANEOUS injection Inject subcutaneously. Inject 44 units in the AM - enalapril (VASOTEC) 20 mg ORAL tablet Take 1 tablet by mouth once daily. - Insulin Syringe-Needle U-100 0.5 mL 31 x 3/8" Misc Syrg once a day - blood sugar diagnostic (FREESTYLE LITE STRIPS) Misc test strip TEST BLOOD SUGARS once daily - calcium carbonate 600 mg-cholecalciferol 200 units 600 mg-5 mcg (200 unit) tab Take 2 tablets by mouth once daily. - Azelastine HCl (OPTIVAR) 0.05 % ophthalmic solution 1 Drop as needed. - celecoxib (CELEBREX) 200 mg capsule one tablet twice daily - furosemide 40 mg ORAL tablet Take 40 mg by mouth as needed. - ranitidine 150 mg ORAL TbEF Take one(1) tablet daily. - Insulin Syringe-Needle U-100 0.5 mL 31 x 3/8" Misc Syrg use as directed - Fish Oil-DHA-EPA 1,200-144-216 mg ORAL Cap Take one(1) tablet daily. - montelukast sodium(SINGULAIR 10 MG TAB) Take (more content not included)... Normal [facility] Telephone ([employer]) ----- EVERTON BEATTY ([id number]) 1945 F Date Time Provider Department 09/17/22 RAJESH GARCIA [employer] During your visit today, we recorded the following information about you: Brandi Rm 09/17/2022 1:49 PM Signed PT calling in because she received results [...] pt and advise. Thank you! Brandi Rm Opal Donahue RN 09/17/2022 2:08 PM Signed Message below copied and pasted into previous telephone encounter that was already dealing with this issue. Opal Donahue RN Allergies As of Date: 09/17/2022 Noted Allergy Reaction BEE STING 12/18/2009 environmental [Other] 12/18/2009 Comments: Animals,dust, tree pollen, grass, weeds KETEK (TELITHROMYCIN) 12/18/2009 PENICILLINS 12/18/2009 SOAP 05/28/2010 4 - Hives Comments: caused by Lever 1999 soap Date Reviewed: 09/02/2022 Reviewed by: Constance Hernandez, RT(R) - Fully Assessed Reason for Visit: Patient Question [2947] Patient Update [0564] Appointment [186] Prescriptions as of 09/17/2022 - famotidine (PEPCID) 20 mg tablet take 1 tablet by mouth once daily 30 TO 45 MINUTES BEFORE DINNER - ondansetron orally disintegrating (ZOFRAN ODT) 4 mg disintegrating tablet dissolve 1 tablet ON TONGUE every 8 hours if needed - melatonin 10 mg cap Take 10 mg by mouth once daily. - DETROL LA 4 mg 24 hr capsule TAKE 1 CAPSULE DAILY - levocetirizine dihydrochloride (XYZAL ORAL) Take by mouth once daily. - esomeprazole magnesium (NEXIUM ORAL) Take by mouth. - furosemide (LASIX ORAL) Take by mouth. - levothyroxine sodium (SYNTHROID ORAL) Take 200 mcg by mouth once daily. - apremilast (OTEZLA ORAL) Take 30 mg by mouth twice daily. - methocarbamol (ROBAXIN ORAL) Take by mouth. - insulin glargine,hum.rec.anlog (LANTUS SUBCUTANEOUS) Inject subcutaneously. - MULTIVITAMIN ORAL Take by mouth. - CALCIUM ORAL Take by mouth. - sitagliptin phosphate (JANUVIA ORAL) Take 100 mg by mouth once daily. - POTASSIUM CHLORIDE ORAL Take by mouth. - glucosamine sulfate (GLUCOSAMINE ORAL) Take by mouth. - cetirizine HCl (ZYRTEC ORAL) Take by mouth. - montelukast sodium (SINGULAIR ORAL) Take 10 mg by mouth once daily. - ubidecarenone (COQ-10 ORAL) Take 100 mg by mouth once daily. - pravastatin sodium (PRAVASTATIN ORAL) Take 20 mg by mouth once daily. - GABAPENTIN ORAL Take by mouth. - amLODIPine-benazepril (LOTREL) 2.5-10 mg per capsule Take 1 capsule by mouth once daily. - mometasone/formoterol (DULERA INHALATION) Inhale as instructed once daily. - linaclotide (LINZESS ORAL) Take 290 mg by mouth as needed. - metronidazole (METROGEL TOPICAL) Apply to affected area. - acyclovir (ZOVIRAX ORAL) Take by mouth as needed. - albuterol sulfate (PROVENTIL INHALATION) Inhale as instructed. - ACYCLOVIR ORAL Take by mouth. - hydrocortisone (PROCTOSOL HC RECTAL) by RECTAL route. - beclomethasone dipropionate (QNASL NASAL) Use in the nose. - nystatin (MYCOSTATIN) cream Apply to affected area twice daily. - METHOCARBAMOL ORAL Take by mouth. - MEDICATION, NON-DATABASE Medical Marijuana - mirabegron (MYRBETRIQ) 25 mg Tb24 Take 1 tablet by mouth once daily. - beclomethasone dipropionate 80 mcg/actuation Use in the nose. - Hydrocodone-Acetaminophen 5-500 mg cap Take by mouth. - niacin sustained release (SLO-NIACIN) 500 mg ORAL tablet Take 1 tablet by mouth twice daily with meals. - levothyroxine 175 mcg ORAL tablet Take by mouth. 8.5 tabs per week - potassium chloride ER (K-DUR, KLOR-CON) 20 mEq tablet Take 20 mEq by mouth as needed. - glimepiride (AMARYL) 4 mg ORAL tablet Take 1 tablet by mouth twice daily with meals. - pioglitazone (ACTOS) 45 mg ORAL tablet Take 1 tablet by mouth once daily. - insulin glargine (LANTUS) 100 unit/mL SUBCUTANEOUS injection Inject subcutaneously. Inject 44 units in the AM - enalapril (VASOTEC) 20 mg ORAL tablet Take 1 tablet by mouth once daily. - Insulin Syringe-Needle U-100 0.5 mL 31 x 3/8" Misc Syrg once a day - blood sugar diagnostic (FREESTYLE LITE STRIPS) Misc test strip TEST BLOOD SUGARS once daily - calcium carbonate 600 mg-cholecalciferol 200 units 600 mg-5 mcg (200 unit) tab Take 2 tablets by mouth once daily. - Azelastine HCl (OPTIVAR) 0.05 % ophthalmic solution 1 Drop as needed. - celecoxib (CELEBREX) 200 mg capsule one tablet twice daily - furosemide 40 mg ORAL tablet Take 40 mg by mouth as needed. - ranitidine 150 mg ORAL TbEF Take one(1) tablet daily. - Insulin Syri (more content not included)... Normal [facility] US KIDNEY/BLADDERon 09-13-20 US KIDNEY/BLADDER * * *Final Report* * * DATE OF EXAM: Sep 13 2022 1:[address] [place] [address] 1055 - US KIDNEY/BLADDER / PROCEDURE REASON: multiple diagnoses * * * * Physician Interpretation * * * * EXAMINATION: RENAL ULTRASOUND CLINICAL HISTORY: September 05, 2022 TECHNIQUE: Sonography of the kidneys and urinary bladder was performed. Images were obtained and stored in a permanent archive. MQ: UR_1 COMPARISON: CT from September 05, 2022 RESULT: Right Kidney: -Renal length: 11.1 cm -Parenchyma: Normal parenchymal echogenicity. Normal parenchymal thickness. -Collecting system: No hydronephrosis. -Calculus: No echogenic, shadowing calculus. -Lesion: None. Left Kidney: -Renal length: 12.5 cm -Parenchyma: Normal parenchymal echogenicity. Normal parenchymal thickness. -Collecting system: No hydronephrosis. -Calculus: No echogenic, shadowing calculus. -Lesion: Solid left renal mass which measures 5.8 x 5.5 x 5.8 cm. Blood flow is seen within the central aspect of this lesion. Bladder: Prevoid the bladder contains approximately 93 cc of urine. Suboptimal evaluation of bladder wall secondary to poor distention. No bladder debris or bladder mass is seen. IMPRESSION: 5.8 cm left renal mass suspicious for a renal cell carcinoma. Unremarkable appearance of the right kidney and bladder. Inventory Control Specialist: GWENDOLYN Transcribe Date/Time: Sep 16 2022 1:44P Dictated by : HELENE BAILEY MD This examination was interpreted and the report reviewed and electronically signed by: HELENE BAILEY MD on Sep 16 2022 1:47PM EST [id number] Normal [facility] CNPNon 09-10-2022 CNPN Telephone (GENSWS) ----- EVERTON BEATTY ([id number]) 1945 F Date Time Provider Department 09/10/22 DANICA SMITH During your visit today, we recorded the following information about you: Adelina Dugan 09/10/2022 1:32 PM Signed Patient calling stating she was told by doctor who read her CT scan that patient should have an US of Kidney/Bladder done. Patient asking if this needs done prior to Colonoscopy on 09/19. Also patient states she will need some medication so she doesn't get sick from being put under. Opal Donahue RN 09/10/2022 5:00 PM Signed Danica Smith MD You 1 hour ago (3:34 PM) I didn't order the CT scan, so whomever ordered it - is obligated to follow up with that, thanks It does not have to be done prior to endoscopy. The anesthesia provider for the endoscopy will address the nausea issue. Called Everton. Reviewed Dr. Smith's message with Everton. Everton advised that Dr. Garcia ordered the CT scan and she would like him to review it and advise regarding an ultrasound. Also, she has a spinal stimulator on her left posterior/flank, would that interfere with an ultrasound? Please advise. CHRISTIAN Bonds RN 09/12/2022 9:18 AM Signed Rajesh Garcia MD You Please let the patient know that they did see her likely renal cyst on the CAT scan and they are recommending a renal ultrasound. I ordered a left renal ultrasound. Please call the patient to let her know that she should get this scheduled but its not an emergency and this does not need to happen before her colonoscopy.-Krish Called Everton, she was not available, left message with her to please return our call. CHRISTIAN Bonds RN 09/17/2022 2:07 PM Signed Brandi Sujey 14 minutes ago (1:48 PM) PT calling [...] advise. Thank you! Brandi Rm Spoke with Everton. Reviewed Dr. Garcia's message. Everton advised that she had the renal ultrasound completed on September 13, showing "5.8 cm left renal mass suspicious for a renal cell carcinoma". Everton is to start her bowel prep this afternoon for her colonoscopy tomorrow. She has concerns about proceeding with the colonoscopy and wants to you if you think it is okay. CHRISTIAN Bonds LPN 09/17/2022 4:36 PM Signed Patient called back, updated per Dr Garcia to go ahead with colonoscopy prep and Dr Garcia will call patient later this evening. Patient voiced understanding. Ciara Kennedy LPN Allergies As of Date: 09/10/2022 Noted Allergy Reaction BEE STING 12/18/2009 environmental [Other] 12/18/2009 Comments: Animals,dust, tree pollen, grass, weeds KETEK (TELITHROMYCIN) 12/18/2009 PENICILLINS 12/18/2009 SOAP 05/28/2010 4 - Hives Comments: caused by Lever 1999 soap Date Reviewed: 09/02/2022 Reviewed by: Constance Hernandez, RT(R) - Fully Assessed Reason for Visit: Patient Question [4759] Cmt: Colonoscopy prep Prescriptions as of 09/17/2022 - famotidine (PEPCID) 20 mg tablet take 1 tablet by mouth once daily 30 TO 45 MINUTES BEFORE DINNER - ondansetron orally disintegrating (ZOFRAN ODT) 4 mg disintegrating tablet dissolve 1 tablet ON TONGUE every 8 hours if needed - melatonin 10 mg cap Take 10 mg by mouth once daily. - DETROL LA 4 mg 24 hr capsule TAKE 1 CAPSULE DAILY - levocetirizine dihydrochloride (XYZAL ORAL) Take by mouth once daily. - esomeprazole magnesium (NEXIUM ORAL) Take by mouth. - furosemide (LASIX ORAL) Take by mouth. - levothyroxine sodium (SYNTHROID ORAL) Take 200 mcg by mouth once daily. - apremilast (OTEZLA ORAL) Take 30 mg by mouth twice daily. - methocarbamol (ROBAXIN ORAL) Take by mouth. - insulin glargine,hum.rec.anlog (LANTUS SUBCUTANEOUS) Inject subcutaneously. - MULTIVITAMIN ORAL Take by mouth. - CALCIUM ORAL Take by mouth. - sitagliptin phosphate (JANUVIA ORAL) Take 100 mg by mouth once daily. - POTASSIUM CHLORIDE ORAL Take by mouth. - glucosamine sulfate (GLUCOSAMINE ORAL) Take by mouth. - cetirizine HCl (ZYRTEC ORAL) Take by mouth. - montelukast sodium (SINGULAIR ORAL) Take 10 mg by mouth once daily. - ubidecarenone (COQ-10 ORAL) Take 100 mg by mouth once daily. - pravastatin sodium (PRAVASTATIN ORAL) Take 20 mg by mouth once daily. - GABAPENTIN ORAL Take by mouth. - amLODIPine-benazepril (LOTREL) 2.5-10 mg per capsule Take 1 capsule by mouth once daily. - mometasone/formoterol (DULERA INHALATION) Inhale as instructed (more content not included)... Normal [facility] HEALTHon 09-05-2022 ALLIED HEALTH HNO ID: [id number] Author: RT Mildred(R) Service: ? 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: Factory Process Workers Type: Allied Health Filed: 09/05/2022 3:10 PM Note Text: Radiology Service Progress Note [...] DEPARTMENT: CT; Exam(s) Completed: Abdomen/Pelvis SIGNATURE: RT Mildred(R) PATIENT NAME: Everton Beatty DATE: September 05, 2022 TIME: 3:09 PM Normal [facility] CT ABD/PEL WO IVCONon 2021 CT ABD/PEL WO IVCON * * *Final Report* * * DATE OF EXAM: Sep 05 2022 3:07PM [facility] 0531 - CT ABD/PEL WO IVCON / PROCEDURE REASON: multiple diagnoses * * * * Physician Interpretation * * * * CT OF ABDOMEN AND PELVIS WITHOUT CONTRAST CLINICAL HISTORY: Unintentional weight loss, abdominal pain, bloating, abdominal discomfort, diarrhea, vomiting, constipation TECHNIQUE: Routine helical scanning of abdomen and pelvis. Contrast: IV contrast: None. Oral: 900 mL of dilute Omnipaque-240. CT Radiation dose: Integrated Dose-length product (DLP): 643.54 mGy*cm. CT Dose Reduction Employed: Automated exposure control (AEC) COMPARISON: None. RESULT: Limitations: None. Lines, tubes, and devices: Stimulator device in the posterior subcutaneous soft tissues at the L4 vertebral body level, left of midline. An electrode extends superiorly into the posterior lower chest subcutaneous tissues. Lower chest: Negative. Peritoneum/mesentery: There is no free intraperitoneal air or significant free fluid. Retroperitoneum: No mass or fluid collection. Liver: Normal. Biliary: Normal. Spleen: Normal. Pancreas: Normal. Adrenals: Normal. Kidneys/urinary: Right kidney: No urinary stone, obstruction or mass detected. Left kidney: Upper pole 4.9 x 4.8 x 5.0 cm intermediate hypodense mass which could be a solid versus complex cystic lesion. Renal ultrasound recommended. No left urinary stone or obstruction. Urinary bladder: No bladder stone. GI tract: No dilated bowel, excess fecal accumulation, bowel wall thickening or inflammatory changes. Minimal sigmoid colonic diverticulosis. Appendix not identified. Lymph nodes: No adenopathy by size criteria. Vasculature: Within normal limits. Pelvis: Uterus is surgically absent. No pelvic mass, fluid collection or adenopathy. Bones/soft tissue: Minimal fat-containing umbilical hernia without bowel loop involvement. Osseous structures are unremarkable for patient's age. No destructive bone lesions. Glue Spreading Machine Operator (topogram) images: No additional findings. IMPRESSION: 5 cm hypodense mass at the upper pole of the left kidney. This could be a solid mass versus complex cystic lesion. Renal ultrasound recommended to differentiate these possibilities. Minimal sigmoid colonic diverticulosis without acute diverticulitis. No bowel wall inflammatory changes. ACTIONABLE RESULT: FOLLOW-UP Acuity: Actionable Findings: Kidneys/Ureters/Bladder Routing Code: GU_1 Recommendation: US KIDNEY/BLADDER Time Frame: non-urgent, but prompt follow-up. COMMUNICATION: Results will be communicated with the ordering provider via [email or web address] staff message or phone message by Imaging Support Services within 2 business days of report finalization. Algorithms for management of incidental imaging findings can be found on the [facility] Intranet Sharepoint site at: [email or web address] [email or web address] Inventory Control Specialist: GWENDOLYN Transcribe Date/Time: Sep 06 2022 1:15P Dictated by : NAYAN ZUNIGA MD This examination was interpreted and the report reviewed and electronically signed by: NAYAN ZUNIGA MD on Sep 06 2022 1:40PM EST [id number] ACTIONABLE Invalid Interpretation Code [facility]ane [facility]-30-2022 [facility] ([employer]) ----- EVERTON BEATTY ([id number]) 1945 F Date Time Provider Department 08/30/22 RAJESH GARCIA During your visit today, we recorded the following information about you: Amairani Hoang 08/30/2022 4:22 PM Signed 09/19/2022 COLON/EGD LODI Patient called in to schedule upper and lower scopes. Per patient stated she cannot wait till Dr. Perez first opening which is Dec 2022. Patient stated she will take the first opening with the next provider. Stated that was with Dr. Smith in [place] and patient was okay with that. Patient scheduled 09/[address] Smith in [place]. Amairani Hoang Control Equipment Electrician Dr Garcia can you please change order location to [place] Allergies As of Date: 08/30/2022 Noted Allergy Reaction BEE STING 12/18/2009 environmental [Other] 12/18/2009 Comments: Animals,dust, tree pollen, grass, weeds KETEK (TELITHROMYCIN) 12/18/2009 PENICILLINS 12/18/2009 SOAP 05/28/2010 4 - Hives Comments: caused by Lever 1999 soap Date Reviewed: 08/29/2022 Reviewed by: Rajesh Garcia MD - Fully Assessed Reason for Visit: 09/19/2022 COLON/EGD LODI [Other] Primary Visit Diagnosis:Abnormal weight loss [R63.4] Order(s):CT KIDNEY/PELVIS WO/W IVCON [[id number]] Order #: [id number] FUTURE iv contrast (will be provided with radiology test)CT KIDNEY/PEL- Inject, intravenously, once for 1 dose.No IV access, insert saline lock prior to the beginning of sedation, infusion, injection of imaging exam. Discontinue saline lock post exam. If Pt. has a central line or IVAD, may access for administration according to line specific nursing protocol. Once exam is complete flush line and de-access according to line specific nursing protocol in the CT contrast administration guidelines link.Disp: 1 EachRfl: 0 Prescriptions as of 09/18/2022 - iv contrast (will be provided with radiology test) CT KIDNEY/PEL- Inject, intravenously, once for 1 dose.No IV access, insert saline lock prior to the beginning of sedation, infusion, injection of imaging exam. Discontinue saline lock post exam. If Pt. has a central line or IVAD, may access for administration according to line specific nursing protocol. Once exam is complete flush line and de-access according to line specific nursing protocol in the CT contrast administration guidelines link. - iv contrast (will be provided with radiology test) CT kidney wow Inject, intravenously, once for 1 dose.No IV access, insert saline lock prior to the beginning of sedation, infusion, injection of imaging exam. Discontinue saline lock post exam. If Pt. has a central line or IVAD, may access for administration according to line specific nursing protocol. Once exam is complete flush line and de-access according to line specific nursing protocol in the CT contrast administration guidelines link. - famotidine (PEPCID) 20 mg tablet take 1 tablet by mouth once daily 30 TO 45 MINUTES BEFORE DINNER - ondansetron orally disintegrating (ZOFRAN ODT) 4 mg disintegrating tablet dissolve 1 tablet ON TONGUE every 8 hours if needed - melatonin 10 mg cap Take 10 mg by mouth once daily. - DETROL LA 4 mg 24 hr capsule TAKE 1 CAPSULE DAILY - levocetirizine dihydrochloride (XYZAL ORAL) Take by mouth once daily. - esomeprazole magnesium (NEXIUM ORAL) Take by mouth. - furosemide (LASIX ORAL) Take by mouth. - levothyroxine sodium (SYNTHROID ORAL) Take 200 mcg by mouth once daily. - apremilast (OTEZLA ORAL) Take 30 mg by mouth twice daily. - methocarbamol (ROBAXIN ORAL) Take by mouth. - insulin glargine,hum.rec.anlog (LANTUS SUBCUTANEOUS) Inject subcutaneously. - MULTIVITAMIN ORAL Take by mouth. - CALCIUM ORAL Take by mouth. - sitagliptin phosphate (JANUVIA ORAL) Take 100 mg by mouth once daily. - POTASSIUM CHLORIDE ORAL Take by mouth. - glucosamine sulfate (GLUCOSAMINE ORAL) Take by mouth. - cetirizine HCl (ZYRTEC ORAL) Take by mouth. - montelukast sodium (SINGULAIR ORAL) Take 10 mg by mouth once daily. - ubidecarenone (COQ-10 ORAL) Take 100 mg by mouth once daily. - pravastatin sodium (PRAVASTATIN ORAL) Take 20 mg by mouth once daily. - GABAPENTIN ORAL Take by mouth. - amLODIPine-benazepril (LOTREL) 2.5-10 mg per capsule Take 1 capsule by mouth once daily. - mometasone/formoterol (DULERA INHALATION) Inhale as instructed once daily. - linaclotide (LINZESS ORAL) Take 290 mg by mouth as needed. - metronidazole (METROGEL TOPICAL) Apply to affected area. - acyclovir (ZOVIRAX ORAL) Take by mouth as needed. - albuterol sulfate (PROVENTIL INHALATION) Inhale as instructed. - ACYCLOVIR ORAL Take by mouth. - hydrocortisone (PROCTOSOL HC RECTAL) by RECTAL route. - beclomethasone dipropionate (QNASL NASAL) Use in the nose. - nystatin (MYCOSTATIN) cream Apply to affected area twice daily. - METHOCARBAMOL ORAL Take (more content not included)... Normal [facility] CNOVon 08-29-2022 CN Office Visit (GENSWS ) ----- EVERTON BEATTY ([id number]) 1945 F Date Time Provider Department 08/29/22 11:00 AM RAJESH GARCIAS During your visit today, we recorded the following information about you: Temperature Pulse Blood pressure Weight 97.8 degrees 75/minute 136/62 109.3 kg Height 1.6 m Ciara KennedyRAJEEV 08/29/2022 11:24 AM Signed REVIEW OF SYSTEMS: [...] last Mammogram screening? Unknown Last Colonoscopy: unknown RAJEEV Pritchett MD 08/29/2022 12:51 PM Signed Bowel Preparation Instructions for: Golytely, Nulytely, Trilyte [...] If you do not have a responsible route driver (family member or friend) with you [...] at your local pharmacy or drugstore pharmacy. 10/2019 Bowel Preparation Instructions for: Golytely, Nulytely, Trilyte or Colyte (polyethylene glycol 3350 and electrolytes) (more content not included)... Normal [facility] Basophil percentageon 2021 Basophil [facility] 5-10 [facility]: Bilirubin Test strip Ql (U)o n 04-05-2022 Bilirubin Ql (U) Negative Negative [facility] Work Phone: Ketones Test strip Ql (U)on 04-05-2022 Ketones Ql (U) Negative Negative [facility] Work Phone: Mucus LM Ql (Urine sed)on Mucus Ql (Urine sed) 0 SEEN /hpf [facility] Work Phone: Nitrite Test strip Ql (U)on 04-05-2022 Nitrite Ql (U) Negative Negative [facility] Work Phone: No Panel Informationon 04-05 Urine Microalbumin/Creatinine Ratio 154.7 mg/g CRE <30 [facility] Work Phone: Protein Test strip Ql (U)on 04-05-2022 Protein Ql (U) Negative Negative [facility] Work Phone: Squamous epithelial cells de tection in urine sediment by light microscopyon 04-05-2022 Epithelial cells.squamous LM Ql (Urine sed) 0-5 SEEN /hpf [facility] Work Phone: Thin prep Papanicolaou smear with manual screeningon 04-05-2022 Thin prep Papanicolaou smear with manual screening 61.1 mg/L NO RANGE EST. [facility] Work Phone: Urine blood detectionon 03-11 RBC Ql (U) 10 /ul Negative [facility] Work Phone: RBC Ql (U) 0 SEEN /hpf [facility] Work Phone: Urine clarityon 04-05-2022 Clarity (U) Sl. Cloudy Clear [facility] Work Phone: Urine color determinationon 04-05-2022 Color (U) Yellow Yellow [facility] Work Phone: Urine creatinine measurement (mass/volume)on 04-05-2022 Creatinine (U) [Mass/Vol] 39.50 mg/dL NO RANGE EST. [facility] Work Phone: Urine glucose detectionon Glucose Ql (U) Normal mg/dl Normal [facility] [facility] Work Phone: Urine leukocyte esterase det ection by dipstickon 04-05-2022 Leukocyte esterase Test strip Ql (U) Negative Negative [facility] Work Phone: [phone] Urine pHon 04-05-2022 pH (U) 6.0 [pH] [facility] Work Phone: [phone] Urine protein measurement (m ass/volume)on 04-05-2022 Protein (U) [Mass/Vol] 14.1 mg/dL 0.0-11.8 [facility] Work Phone: [phone] Urine protein/creatinine mas s ratioon 04-05-2022 Protein/Creatinine (U) [Mass ratio] 357 mg/g CRE 0-200 [facility] Work Phone: [phone] Urine sediment bacteria coun t by microscopy (number/high power field)on 04-05-2022 Bacteria LM.HPF (Urine sed) [#/Area] 4 /[HPF] None Seen [facility] Work Phone: [phone] Urine specific gravity measu rementon 04-05-2022 Specific gravity (U) [Rel density] 1.015 [facility] Work Phone: [phone] Urobilinogen Auto test strip Ql (U)on 04-05-2022 Urobilinogen Ql (U) Normal mg/dl Normal [facility] Work Phone: [phone] Absolute lymphocyte counton 04-02-2022 Lymphocytes Auto (Unsp spec) [#/Vol] 1.15 10*3/uL 0.83-4.51 [facility] Work Phone: [phone] Basophil percentageon 2021 Basophil percentage 3.5 mg/dL 2.5-4.9 [facility] Work Phone: [phone] Basophils/100 WBC (Bld) 1.7 % 0-1 [facility] Work Phone: [phone] Bilirubin [Mass/Vol] 0.30 mg/dL 0.20-1.00 [facility] Work Phone: [phone] Comment on above: For patients on eltr ombopag therapy, use of Dimension [place] TBIL is not recommended. Chloride [Moles/Vol] 105 mmol/L 98-107 [facility] Work Phone: Cholesterol [Mass/Vol] 142 mg/dL <200 [facility] Work Phone: Comment on above: <200 mg/dL Desirable 200-240 mg/dL Borderline >240 mg/dL High Risk Eosinophils/100 WBC (Bld) 5.5 % 0-5 [facility] Work Phone: Glucose [Mass/Vol] 152 mg/dL 74-106 [facility] Work Phone: Comment on above: Fasting Glucose resu lt greater than or equal to 126 mg/dL suggests DIABETES MELLITUS per A.D.A. criteria. Neutrophils (Bld) [#/Vol] 4.9 10*3/uL 2.0-7.7 [facility] Work Phone: Neutrophils/100 WBC (Bld) 68.5 % 47-70 [facility] Work Phone: Potassium [Moles/Vol] 4.6 mmol/L 3.5-5.1 [facility] Work Phone: Protein [Mass/Vol] 6.6 g/dL 6.4-8.2 [facility] Work Phone: Sodium [Moles/Vol] 137 mmol/L 136-145 [facility] Work Phone: Triglyceride [Mass/Vol] 144 mg/dL [facility] Work Phone: Comment on above: The drugs N-Acetylcy steine and Metamizole may falsely depress this assay.Serum Triglycerides Reference Interval Normal <150 mg/dL Borderline high 150 - 199 mg/dL High 200 - 499 mg/dL Very High > or = 500 mg/dL WBC (Bld) [#/Vol] 7.1 10*3/uL 4.4-11.0 [facility] Work Phone: Blood erythrocytes count (nu mber/volume)on 04-02-2022 RBC (Bld) [#/Vol] 3.55 10*6/uL 4.2-5.4 [facility] Work Phone: Blood hemoglobin measurement (mass/volume)on 04-02-2022 Hemoglobin (Bld) [Mass/Vol] 10.2 g/dL 12.0-15.0 [facility] Work Phone: Blood lymphocytes/100 leukoc yteson 04-02-2022 Lymphocytes/100 WBC (Bld) 16.2 % 19-41 [facility] Work Phone: Blood monocytes/100 leukocyt eson 04-02-2022 Monocytes/100 WBC (Bld) 7.7 % 0-10 [facility] Work Phone: Blood platelet mean volumeon 04-02-2022 Platelet mean volume (Bld) [Entitic vol] 10.6 fL 6.2-12.0 [facility] Work Phone: Determination of erythrocyte mean corpuscular volume (MCV)on 04-02-2022 MCV (RBC) [Entitic vol] 89.0 fL 81-99 [facility] Work Phone: Hematocrit Auto (Bld) [Volum e fraction]on 04-02-2022 Hematocrit (Bld) [Volume fraction] 31.6 % 37-47 [facility] Work Phone: [phone] Laboratory - Chemistry and C hemistry - challengeon 04-02-2022 ALP [Catalytic activity/Vol] 64 U/L 45-117 [facility] Work Phone: ALT [Catalytic activity/Vol] 24 U/L 13-56 [facility] Work Phone: CO2 [Moles/Vol] 25.0 mmol/L 21.0-32.0 [facility] Work Phone: Free T4 [Mass/Vol] 1.37 ng/dL 0.76-1.46 [facility] Work Phone: Globulin (S) [Mass/Vol] 3.4 g/dL 2.2-4.2 [facility] Work Phone: Urea nitrogen/Creatinine [Mass ratio] 20.8 mg/mg 10-20 [facility] Work Phone: Laboratory - Hematology and Cell countson 04-02-2022 Erythrocyte distribution width (RBC) [Entitic vol] 39.8 fL 35.1-43.9 [facility] Work Phone: Erythrocyte distribution width (RBC) [Ratio] 12.1 % 11.6-14.6 [facility] Work Phone: Immature granulocytes/100 WBC (Bld) 0.400 % 0.0-0.9 [facility] Work Phone: Comment on above: IG% - Immature Granu locytes (promyelocytes, myelocytes and metamyelocytes) > 1% indicates that a LEFT SHIFT is Present. MCH (RBC) [Entitic mass] 28.7 pg 27.0-32.0 [facility] Work Phone: Nucleated RBC/100 WBC (Bld) [Ratio] 0 % 0-5 [facility] Work Phone: MCHC Auto (RBC) [Mass/Vol]on 04-02-2022 MCHC (RBC) [Mass/Vol] 32.3 g/dL 32-36 [facility] Work Phone: No Panel Informationon 04-02 Estimated GFR (MDRD) Amer 65 mL/min >60 [facility] Work Phone: Comment on above: GFR Calc Estimated GFR (MDRD) Non-Af Amer 54 mL/min >60 [facility] Work Phone: Comment on above: Non- GFR Calc Parathyroid Hormone (Intact) 47.9 pg/mL 18.4-80.1 [facility] Work Phone: Thyroid Stimulating Hormone (TSH) 1.94 uIU/mL 0.358-3.74 [facility] Work Phone: Platelets bldon 04-02-2022 Platelets (Bld) [#/Vol] 261 10*3/uL 150-450 [facility] Work Phone: Serum or plasma albumin noemi urement (mass/volume)on 04-02-2022 Albumin [Mass/Vol] 3.2 g/dL 3.2-5.0 [facility] Work Phone: Serum or plasma albumin/glob ulin mass ratioon 04-02-2022 Albumin/Globulin [Mass ratio] 0.9 {ratio} 0.9-2.4 [facility] Work Phone: Serum or plasma calcium noemi urement (mass/volume)on 04-02-2022 Calcium [Mass/Vol] 9.0 mg/dL 8.5-10.1 [facility] Work Phone: Serum or plasma cholesterol in HDL measurement (mass/volume)on 04-02-2022 Cholesterol in HDL [Mass/Vol] 45 mg/dL [facility] Work Phone: Comment on above: The drugs N-Acetylcy steine and Metamizole may falsely depress this assay. Reference Range HDL <40 mg/dL Low HDL Cholesterol HDL >or= 60 mg/dL High HDL Cholesterol Serum or plasma cholesterol in VLDL measurement (mass/volume)on 04-02-2022 Cholesterol in VLDL [Mass/Vol] 29 mg/dL 5-40 [facility] Work Phone: Serum or plasma creatinine m easurement (mass/volume)on 04-02-2022 Creatinine [Mass/Vol] 1.06 mg/dL 0.55-1.02 [facility] Work Phone: Comment on above: The validity of the calculated GFR & GFRAA in patients over 70 years has not been determined. Clinical correlation is essential. Serum or plasma low density lipoprotein (LDL) cholesterol measurement (mass/volume)on 04-02-2022 Cholesterol in LDL [Mass/Vol] 68 mg/dL 0-130 [facility] Work Phone: Serum or plasma urea nitroge n measurement (mass/volume)on 04-02-2022 Urea nitrogen [Mass/Vol] 22 mg/dL 7-18 [facility] Work Phone: Thin prep Papanicolaou smear with manual screeningon 04-02-2022 Thin prep Papanicolaou smear with manual screening 20 U/L 15-37 [facility] Work Phone: Thin prep Papanicolaou smear with manual screening 7 5-15 [facility] Work Phone: Whole blood hemoglobin A1c/t otal hemoglobin ratio (mass fraction)on 04-02-2022 HbA1c (Bld) [Mass fraction] 6.6 % 3.8-5.6 [facility] Work Phone: Comment on above: Normal < 5.7 % Predi abetic 5.7 - 6.4 % Diabetic >or= 6.5 % Please note range changes. Laboratory - Drug toxicology on 03-28-2022 Amphetamines Ql (U) Negative [facility] Work Phone: Benzodiazepines Ql (U) Negative [facility] Work Phone: Cannabinoids Screen Ql (U) Negative [facility] Work Phone: Cocaine Ql (U) Negative [facility] Work Phone: Opiates Ql (U) Negative [facility] Work Phone: No Panel Informationon 03-28 MDMA (Ecstasy) Screen Negative [facility] Work Phone: Miscellaneous Test See comment [facility] Work Phone: Comment on above: [id number] 6+OXYCODONE-B UND (ng/mL) DRUG RESULT SCREEN CUTOFF____ Amphetamines,Urine Negative ng/mL 1000 Amphetamine test includes Amphetamine and Methamphetamine.Barbiturates Negative ng/mL 200Benzodiazepines Negative ng/mL 200Cannabinoid Negative ng/mL 20Cocaine (Metab) Negative ng/mL 300Opiates Negative ng/mL 300 Opiates test includes Codeine, Morphine, Hydromorphone, Hydrocodone. Oxycodone/Oxymorphone,Urine Negative ng/mL 300 Test includes Oxydodone and Oxymorphone. TESTING PERFORMED AT [facility]. ORIGINAL REPORT ON FILE IN LAB CONTAINS ADDITIONAL TEST SITE INFORMATION. Urine Barbiturates Screen Negative [facility] Work Phone: Urine Drug Screen Comment [facility] Work Phone: Comment on above: CONFIRMATORY TESTING FOR ALL POSITIVE URINE DRUG SCREENRESULTS WILL ONLY BE SENT OUT UPON PHYSICIAN ORDER. VISTA Urine Drug Screen methods provide only preliminaryanalytical test results. A more specific alternate chemicalmethod must be used in order to obtain a confirmedanalytical result. Gas chromatography/mass spectrometery(GC/MS) is the preferred confirmatory method. Clinicalconsideration and professional judgement should be appliedto any drug of abuse test result, particularly whenpreliminary positive results are used. URINE TCA TESTING MUST BE ORDERED SEPARATELY. USE TESTMNEMONIC: [facility] Urine Methadone Screen Negative [facility] Work Phone: Urine phencyclidine (PCP) de tectionon 03-28-2022 Phencyclidine Ql (U) Negative [facility] Work Phone: Iron measurement (mass/mass) on 01-24-2022 Iron (Unsp spec) [Mass/Mass] 86 ug/dL 50-170 [facility] Work Phone: Laboratory - Chemistry and C hemistry - challengeon 01-24-2022 Cobalamin (Vitamin B12) [Mass/Vol] 553 pg/mL 211-911 [facility] Work Phone: No Panel Informationon 01-24 Total Iron Binding Capacity 337 ug/dL 250-450 [facility] Work Phone: Serum or plasma ferritin consuelo surement (mass/volume)on 01-24-2022 Ferritin [Mass/Vol] 16 ng/mL 8-252 [facility] Work Phone: Serum or plasma folate measu rement (mass/volume)on 01-24-2022 Folate [Mass/Vol] 36.60 ng/mL 3.1-55.4 [facility] Work Phone: Basophil percentageon 2021 Basophil percentage 5-10 SEEN /hpf [facility] Work Phone: Bilirubin Test strip Ql (U)o n 01-07-2022 Bilirubin Ql (U) Negative Negative [facility] Work Phone: Ketones Test strip Ql (U)on 01-07-2022 Ketones Ql (U) Negative Negative [facility] Work Phone: Mucus LM Ql (Urine sed)on Mucus Ql (Urine sed) 0 SEEN /hpf [facility] Work Phone: Nitrite Test strip Ql (U)on 01-07-2022 Nitrite Ql (U) Negative Negative [facility] Work Phone: No Panel Informationon 01-07 Urine Microalbumin/Creatinine Ratio 237.8 mg/g CRE <30 [facility] Work Phone: Protein Test strip Ql (U)on 01-07-2022 Protein Ql (U) 30 mg/dl Negative [facility] Work Phone: Squamous epithelial cells de tection in urine sediment by light microscopyon 01-07-2022 Epithelial cells.squamous LM Ql (Urine sed) 0-5 SEEN /hpf [facility] Work Phone: Thin prep Papanicolaou smear with manual screeningon 01-07-2022 Thin prep Papanicolaou smear with manual screening 175.0 mg/L NO RANGE EST. [facility] Work Phone: Urine blood detectionon 12-12 RBC Ql (U) Negative Negative [facility] Work Phone: RBC Ql (U) 0 SEEN /hpf [facility] Work Phone: Urine clarityon 01-07-2022 Clarity (U) Sl. Cloudy Clear [facility] Work Phone: Urine color determinationon 01-07-2022 Color (U) Yellow Yellow [facility] Work Phone: [phone] Urine creatinine measurement (mass/volume)on 01-07-2022 Creatinine (U) [Mass/Vol] 73.60 mg/dL NO RANGE EST. [facility] Work Phone: [phone] Urine glucose detectionon Glucose Ql (U) Normal mg/dl Normal [facility] Work Phone: [phone] Urine leukocyte esterase det ection by dipstickon 01-07-2022 Leukocyte esterase Test strip Ql (U) 25 /ul Negative [facility] Work Phone: [phone] Urine pHon 01-07-2022 pH (U) 6.5 [pH] [facility] Work Phone: [phone] Urine protein measurement (m ass/volume)on 01-07-2022 Protein (U) [Mass/Vol] 29.5 mg/dL 0.0-11.8 [facility] Work Phone: [phone] Urine protein/creatinine mas s ratioon 01-07-2022 Protein/Creatinine (U) [Mass ratio] 401 mg/g CRE 0-200 [facility] Work Phone: [phone] Urine sediment bacteria coun t by microscopy (number/high power field)on 01-07-2022 Bacteria LM.HPF (Urine sed) [#/Area] 2 /[HPF] None Seen [facility] Work Phone: [phone] Urine specific gravity measu rementon 01-07-2022 Specific gravity (U) [Rel density] 1.010 [facility] Work Phone: [phone] Urobilinogen Auto test strip Ql (U)on 01-07-2022 Urobilinogen Ql (U) Normal mg/dl Normal [facility] Work Phone: [phone] Absolute lymphocyte counton 12-31-2021 Lymphocytes Auto (Unsp spec) [#/Vol] 1.42 10*3/uL 0.83-4.51 [facility] Work Phone: Basophil percentageon 2021 Basophil percentage 3.5 mg/dL 2.5-4.9 [facility]: [phone] Basophils/100 WBC (Bld) 1.4 % 0-1 [facility] Work Phone: [phone] Bilirubin [Mass/Vol] 0.30 mg/dL 0.20-1.00 [facility] Work Phone: Comment on above: For patients on eltr ombopag therapy, use of Dimension [place] TBIL is not recommended. Chloride [Moles/Vol] 105 mmol/L 98-107 [facility] Work Phone: [phone] Cholesterol [Mass/Vol] 141 mg/dL <200 [facility] Work Phone: Comment on above: <200 mg/dL Desirable 200-240 mg/dL Borderline >240 mg/dL High Risk Eosinophils/100 WBC (Bld) 5.8 % 0-5 [facility] Work Phone: [phone] Glucose [Mass/Vol] 173 mg/dL 74-106 [facility] Work Phone: Comment on above: Fasting Glucose resu lt greater than or equal to 126 mg/dL suggests DIABETES MELLITUS per A.D.A. criteria. Neutrophils (Bld) [#/Vol] 5.3 10*3/uL 2.0-7.7 [facility] Work Phone: [phone] Neutrophils/100 WBC (Bld) 66.4 % 47-70 [facility] Work Phone: [phone] Potassium [Moles/Vol] 4.5 mmol/L 3.5-5.1 [facility] Work Phone: [phone] Protein [Mass/Vol] 6.7 g/dL 6.4-8.2 [facility] Work Phone: [phone] Sodium [Moles/Vol] 137 mmol/L 136-145 [facility] Work Phone: [phone] Triglyceride [Mass/Vol] 175 mg/dL [facility] Work Phone: Comment on above: The drugs N-Acetylcy steine and Metamizole may falsely depress this assay.Serum Triglycerides Reference Interval Normal <150 mg/dL Borderline high 150 - 199 mg/dL High 200 - 499 mg/dL Very High > or = 500 mg/dL WBC (Bld) [#/Vol] 8.0 10*3/uL 4.4-11.0 [facility] Work Phone: Blood erythrocytes count (nu mber/volume)on 12-31-2021 RBC (Bld) [#/Vol] 3.80 10*6/uL 4.2-5.4 [facility] Work Phone: Blood hemoglobin measurement (mass/volume)on 12-31-2021 Hemoglobin (Bld) [Mass/Vol] 10.9 g/dL 12.0-15.0 [facility] Work Phone: Blood lymphocytes/100 leukoc yteson 12-31-2021 Lymphocytes/100 WBC (Bld) 17.8 % 19-41 [facility] Work Phone: [phone] Blood monocytes/100 leukocyt eson 12-31-2021 Monocytes/100 WBC (Bld) 8.3 % 0-10 [facility] Work Phone: Blood platelet mean volumeon 12-31-2021 Platelet mean volume (Bld) [Entitic vol] 10.6 fL 6.2-12.0 [facility] Work Phone: Determination of erythrocyte mean corpuscular volume (MCV)on 12-31-2021 MCV (RBC) [Entitic vol] 88.9 fL 81-99 [facility] Work Phone: Hematocrit Auto (Bld) [Volum e fraction]on 12-31-2021 Hematocrit (Bld) [Volume fraction] 33.8 % 37-47 [facility] Work Phone: Laboratory - Chemistry and C hemistry - challengeon 12-31-2021 ALP [Catalytic activity/Vol] 66 U/L 45-117 [facility] Work Phone: ALT [Catalytic activity/Vol] 23 U/L 13-56 [facility] Work Phone: CO2 [Moles/Vol] 28.0 mmol/L 21.0-32.0 [facility] Work Phone: Free T4 [Mass/Vol] 1.12 ng/dL 0.76-1.46 [facility] Work Phone: [phone] Globulin (S) [Mass/Vol] 3.5 g/dL 2.2-4.2 [facility] Work Phone: [phone] Urea nitrogen/Creatinine [Mass ratio] 18.8 mg/mg 10-20 [facility] Work Phone: [phone] Laboratory - Hematology and Cell countson 12-31-2021 Erythrocyte distribution width (RBC) [Entitic vol] 40.5 fL 35.1-43.9 [facility] Work Phone: [phone] Erythrocyte distribution width (RBC) [Ratio] 12.4 % 11.6-14.6 [facility] Work Phone: [phone] Immature granulocytes/100 WBC (Bld) 0.300 % 0.0-0.9 [facility] Work Phone: Comment on above: IG% - Immature Granu locytes (promyelocytes, myelocytes and metamyelocytes) > 1% indicates that a LEFT SHIFT is Present. MCH (RBC) [Entitic mass] 28.7 pg 27.0-32.0 [facility] Work Phone: [phone] Nucleated RBC/100 WBC (Bld) [Ratio] 0 % 0-5 [facility] Work Phone: [phone] MCHC Auto (RBC) [Mass/Vol]on 12-31-2021 MCHC (RBC) [Mass/Vol] 32.2 g/dL 32-36 [facility] Work Phone: [phone] No Panel Informationon 12-31 Estimated GFR (MDRD) Amer 69 mL/min >60 [facility] Work Phone: Comment on above: GFR Calc Estimated GFR (MDRD) Non-Af Amer 57 mL/min >60 [facility] Work Phone: Comment on above: Non- GFR Calc Parathyroid Hormone (Intact) 35.5 pg/mL 18.4-80.1 [facility] Work Phone: Thyroid Stimulating Hormone (TSH) 3.81 uIU/mL 0.358-3.74 [facility] Work Phone: Vitamin D 25-Hydroxy 63.4 ng/mL [facility] Work Phone: Comment on above: Vitamin D 25(OH) Sta tus Range Deficiency <20 ng/mL (50nmol/L) Insufficiency 20 - 30 ng/mL (50 - 75 nmol/L) Sufficiency 30 - 100 ng/mL (75 - 250 nmol/L) Toxicity >100 ng/mL (>250 nmol/L) Platelets bldon 12-31-2021 Platelets (Bld) [#/Vol] 235 10*3/uL 150-450 [facility] Work Phone: Serum or plasma albumin noemi urement (mass/volume)on 12-31-2021 Albumin [Mass/Vol] 3.2 g/dL 3.2-5.0 [facility] Work Phone: Serum or plasma albumin/glob ulin mass ratioon 12-31-2021 Albumin/Globulin [Mass ratio] 0.9 {ratio} 0.9-2.4 [facility] Work Phone: Serum or plasma calcium noemi urement (mass/volume)on 12-31-2021 Calcium [Mass/Vol] 9.4 mg/dL 8.5-10.1 [facility] Work Phone: Serum or plasma cholesterol in HDL measurement (mass/volume)on 12-31-2021 Cholesterol in HDL [Mass/Vol] 46 mg/dL [facility] Work Phone: Comment on above: The drugs N-Acetylcy steine and Metamizole may falsely depress this assay. Reference Range HDL <40 mg/dL Low HDL Cholesterol HDL >or= 60 mg/dL High HDL Cholesterol Serum or plasma cholesterol in VLDL measurement (mass/volume)on 12-31-2021 Cholesterol in VLDL [Mass/Vol] 35 mg/dL 5-40 [facility] Work Phone: Serum or plasma creatinine m easurement (mass/volume)on 12-31-2021 Creatinine [Mass/Vol] 1.01 mg/dL 0.55-1.02 [facility] Work Phone: Comment on above: The validity of the calculated GFR & GFRAA in patients over 70 years has not been determined. Clinical correlation is essential. Serum or plasma low density lipoprotein (LDL) cholesterol measurement (mass/volume)on 12-31-2021 Cholesterol in LDL [Mass/Vol] 60 mg/dL 0-130 [facility] Work Phone: Serum or plasma urea nitroge n measurement (mass/volume)on 12-31-2021 Urea nitrogen [Mass/Vol] 19 mg/dL 7-18 [facility] Work Phone: Thin prep Papanicolaou smear with manual screeningon 12-31-2021 Thin prep Papanicolaou smear with manual screening 17 U/L 15-37 [facility] Work Phone: Thin prep Papanicolaou smear with manual screening 4 5-15 [facility] Work Phone: Whole blood hemoglobin A1c/t otal hemoglobin ratio (mass fraction)on 12-31-2021 HbA1c (Bld) [Mass fraction] 7.3 % 3.8-5.6 [facility] Work Phone: Comment on above: Normal < 5.7 % Predi abetic 5.7 - 6.4 % Diabetic >or= 6.5 % Please note range changes. Absolute lymphocyte counton 12-21-2021 Lymphocytes Auto (Unsp spec) [#/Vol] 1.32 10*3/uL 0.83-4.51 [facility] Work Phone: Basophil percentageon 2021 Basophils/100 WBC (Bld) 1.2 % 0-1 [facility] Work Phone: Bilirubin [Mass/Vol] 0.30 mg/dL 0.20-1.00 [facility] Work Phone: [phone] Comment on above: For patients on eltr ombopag therapy, use of Dimension [place] TBIL is not recommended. Chloride [Moles/Vol] 106 mmol/L 98-107 [facility] Work Phone: Eosinophils/100 WBC (Bld) 6.4 % 0-5 [facility] Work Phone: Glucose [Mass/Vol] 218 mg/dL 74-106 [facility] Work Phone: [phone] Comment on above: Glucose result great er than or equal to 200 mg/dLsuggests DIABETES MELLITUS per A.D.A. criteria. Neutrophils (Bld) [#/Vol] 4.3 10*3/uL 2.0-7.7 [facility] Work Phone: [phone] Neutrophils/100 WBC (Bld) 63.6 % 47-70 [facility] Work Phone: Potassium [Moles/Vol] 4.7 mmol/L 3.5-5.1 [facility] Work Phone: Protein [Mass/Vol] 6.8 g/dL 6.4-8.2 [facility] Work Phone: Sodium [Moles/Vol] 137 mmol/L 136-145 [facility] Work Phone: WBC (Bld) [#/Vol] 6.7 10*3/uL 4.4-11.0 [facility] Work Phone: Blood erythrocytes count (nu mber/volume)on 12-21-2021 RBC (Bld) [#/Vol] 3.90 10*6/uL 4.2-5.4 [facility] Work Phone: Blood hemoglobin measurement (mass/volume)on 12-21-2021 Hemoglobin (Bld) [Mass/Vol] 11.1 g/dL 12.0-15.0 [facility] Work Phone: Blood lymphocytes/100 leukoc yteson 12-21-2021 Lymphocytes/100 WBC (Bld) 19.6 % 19-41 [facility] Work Phone: Blood monocytes/100 leukocyt eson 12-21-2021 Monocytes/100 WBC (Bld) 8.8 % 0-10 [facility] Work Phone: Blood platelet mean volumeon 12-21-2021 Platelet mean volume (Bld) [Entitic vol] 10.8 fL 6.2-12.0 [facility] Work Phone: [phone] Determination of erythrocyte mean corpuscular volume (MCV)on 12-21-2021 MCV (RBC) [Entitic vol] 87.7 fL 81-99 [facility] Work Phone: Hematocrit Auto (Bld) [Volum e fraction]on 12-21-2021 Hematocrit (Bld) [Volume fraction] 34.2 % 37-47 [facility] Work Phone: [phone] Laboratory - Chemistry and C hemistry - challengeon 12-21-2021 ALP [Catalytic activity/Vol] 69 U/L 45-117 [facility] Work Phone: ALT [Catalytic activity/Vol] 25 U/L 13-56 [facility] Work Phone: CO2 [Moles/Vol] 24.0 mmol/L 21.0-32.0 [facility] Work Phone: [phone] Globulin (S) [Mass/Vol] 3.4 g/dL 2.2-4.2 [facility] Work Phone: [phone] Urea nitrogen/Creatinine [Mass ratio] 21.8 mg/mg 10-20 [facility] Work Phone: Laboratory - Hematology and Cell countson 12-21-2021 Erythrocyte distribution width (RBC) [Entitic vol] 39.8 fL 35.1-43.9 [facility] Work Phone: [phone] Erythrocyte distribution width (RBC) [Ratio] 12.4 % 11.6-14.6 [facility] Work Phone: Immature granulocytes/100 WBC (Bld) 0.400 % 0.0-0.9 [facility] Work Phone: Comment on above: IG% - Immature Granu locytes (promyelocytes, myelocytes and metamyelocytes) > 1% indicates that a LEFT SHIFT is Present. MCH (RBC) [Entitic mass] 28.5 pg 27.0-32.0 [facility] Work Phone: Nucleated RBC/100 WBC (Bld) [Ratio] 0 % 0-5 [facility] Work Phone: MCHC Auto (RBC) [Mass/Vol]on 12-21-2021 MCHC (RBC) [Mass/Vol] 32.5 g/dL 32-36 [facility] Work Phone: No Panel Informationon 12-21 Estimated GFR (MDRD) Amer 69 mL/min >60 [facility] Work Phone: Comment on above: GFR Calc Estimated GFR (MDRD) Non-Af Amer 57 mL/min >60 [facility] Work Phone: Comment on above: Non- GFR Calc Platelets bldon 12-21-2021 Platelets (Bld) [#/Vol] 236 10*3/uL 150-450 [facility] Work Phone: Serum or plasma albumin noemi urement (mass/volume)on 12-21-2021 Albumin [Mass/Vol] 3.4 g/dL 3.2-5.0 [facility] Work Phone: Serum or plasma albumin/glob ulin mass ratioon 12-21-2021 Albumin/Globulin [Mass ratio] 1.0 {ratio} 0.9-2.4 [facility] Work Phone: Serum or plasma calcium noemi urement (mass/volume)on 12-21-2021 Calcium [Mass/Vol] 9.3 mg/dL 8.5-10.1 [facility] Work Phone: Serum or plasma creatinine m easurement (mass/volume)on 12-21-2021 Creatinine [Mass/Vol] 1.01 mg/dL 0.55-1.02 [facility] Work Phone: Comment on above: The validity of the calculated GFR & GFRAA in patients over 70 years has not been determined. Clinical correlation is essential. Serum or plasma urea nitroge n measurement (mass/volume)on 12-21-2021 Urea nitrogen [Mass/Vol] 22 mg/dL 7-18 [facility] Work Phone: Thin prep Papanicolaou smear with manual screeningon 12-21-2021 Thin prep Papanicolaou smear with manual screening 20 U/L 15-37 [facility] Work Phone: Thin prep Papanicolaou smear with manual screening 7 5-15 [facility] Work Phone: Glucose,Bedsideon 04-05-2021 Glucose [Mass/Vol] 273 mg/dL High 70-100 [facility] [employer] [facility] Comment on above: Result Comment: Test performed by glucose meter. Results may be 10%-15% lower than serum/plasma values. (CLIA ID [id number]) Performed By: #### B GLU #### [employer] [address] [place] [address] Glucose [Mass/Vol] 253 mg/dL High 70-100 [facility] Comment on above: Result Comment: Test performed by glucose meter. Results may be 10%-15% lower than serum/plasma values. (CLIA ID [id number]) Performed By: #### B GLU #### [facility] [employer] [address] [place] [address] OPERATIVE REPORTOrdered By: kameron Jorgensen on 04-05-2021 [employer] Work Phone: POCT GlucoseOrdered By: Garret Rowley on 04-05-2021 Glucose [Mass/Vol] 273 mg/dL High 70 - 100 mg/dL [employer] Work Phone: Comment on above: Test performed by gl ucose meter. Results may be 10%-15% lower than serum/plasma values. (CLIA ID [id number]) Interpretation and review of laboratory results Abnormal [facility] Work Phone: Test Performed by [employer] [facility], [address] [place] [address] [facility] Work Phone: [facility] Work Phone: Glucose [Mass/Vol] 253 mg/dL High 70 - 100 mg/dL [facility] Work Phone: Comment on above: Test performed by gl ucose meter. Results may be 10%-15% lower than serum/plasma values. (CLIA ID [id number]) Interpretation and review of laboratory results Abnormal [facility] Work Phone: Test Performed by [employer] [address] [place] [address] [facility] Work Phone: [facility] Work Phone: Glucose,Bedsideon 04-04-2021 Glucose [Mass/Vol] 340 mg/dL High 70-100 [facility] Comment on above: Result Comment: Test performed by glucose meter. Results may be 10%-15% lower than serum/plasma values. (CLIA ID [id number]) Performed By: #### B GLU #### [employer] [address] [place] [address] Glucose [Mass/Vol] 229 mg/dL High 70-100 [facility] Comment on above: Result Comment: Test performed by glucose meter. Results may be 10%-15% lower than serum/plasma values. (CLIA ID [id number]) Performed By: #### B GLU #### [employer] [address] [place] [address] Glucose [Mass/Vol] 148 mg/dL High 70-100 [facility] Comment on above: Result Comment: Test performed by glucose meter. Results may be 10%-15% lower than serum/plasma values. (CLIA ID [id number]) Performed By: #### B GLU #### [employer] [address] [place] [address] Glucose [Mass/Vol] 157 mg/dL High 70-100 [facility] Comment on above: Result Comment: Test performed by glucose meter. Results may be 10%-15% lower than serum/plasma values. (CLIA ID [id number]) Performed By: #### B GLU #### [facility] [address] [place] [address] Glucose [Mass/Vol] 191 mg/dL High 70-100 [facility] Comment on above: Result Comment: Test performed by glucose meter. Results may be 10%-15% lower than serum/plasma values. (CLIA ID [id number]) Performed By: #### B GLU #### [facility] [address] [place] [address] Glucose [Mass/Vol] 152 mg/dL High 70-100 [facility] Comment on above: Result Comment: Test performed by glucose meter. Results may be 10%-15% lower than serum/plasma values. (CLIA ID [id number]) Performed By: #### B GLU #### [facility] [place] [place] [address] Op Noteon 04-04-2021 Op Note PATIENT: SANJUANA BEATTY ADMISSION DATE: 04/04/2021 SURGERY DATE: 04/04/2021 DATE OF : 1945 AGE: 75 ADMITTING PHYSICIAN: Garret Rowley MD ATTENDING PHYSICIAN: Garret Rowley MD DICTATING PHYSICIAN: Garret Rowley MD OPERATIVE RECORD Procedure: THORACIC LAMINECTOMY FOR IMPLANTATION OF PADDLE LEAD SPINE STIMULATOR, USE OF MEDTRONIC DEVICE. Preoperative Diagnosis: Intractable low back and leg pain. Postoperative Diagnosis: Intractable low back and leg pain. Anesthesia: General endotracheal. Sports Book Server: Odessa Lawson Please note this institution does not have neurosurgical residents or other personnel available to assist. She assisted throughout the duration of the procedure with exposure, closure, suction, retraction, irrigation, and instrument cleaning. Indications: This is a 75-year-old female who presents with clinical signs and symptoms of the above-stated diagnosis. She has undergone a previous temporary spine stimulator trial with good results. She is felt to be an adequate candidate for the procedure. Description of Procedure: After carefully explaining the risks, benefits, and alternatives of the procedure, informed consent was obtained. The patient was taken to the operating suite and placed under general endotracheal anesthesia. She was positioned prone on the Ezio table. Thoracic and lumbar regions were prepped and draped in routine sterile fashion. Initially, a midline vertical incision was made overlying the T10 lamina region. Midline sharp dissection and electrocautery were used to dissect down through a level inferior to the fascia layer to expose the underlying lamina. Intraoperative fluoroscopy was used for level localization and to facilitate placement of the implants. A combination of rongeurs, high-speed drill, and Kerrison punches were then used to perform a laminectomy at the T10 level. A wide exposure was carried out to allow for implantation of the paddle lead. Medtronic paddle lead implant was then placed. This was the SureScan MRI compatible lead utilizing [employer]. A good placement was obtained dorsally in the midline with the upper portion of the lead approximating the T7-T8 disk space level. Anchors were then applied and secured to the fascia with stitches. A separate incision was made in horizontal fashion over the upper gluteal area on the left measuring approximately 2 inches in length. The subcutaneous pocket was dissected. The leads were then tunneled subcutaneously from the thoracic to the second incision in a single pass. They were secured into the generator, which was tested and functioning well. The generator and leads were then placed into the subcutaneous pocket. Both incisions were closed in several layers in usual manner. Sterile dressings were applied. The patient tolerated the procedure well without apparent complications and postoperatively transferred to the postanesthesia care unit in satisfactory condition. [employer] Job ID: [id number] Garret Rowley MD DOD:04/04/2021 11:04 A SHAJI/ana paula DOT:04/04/2021 11:54 A Job Number: [id number] Document Number: [id number] cc: Garret Rowley MD [address] [place] [address] Normal [facility] POCT GlucoseOrdered By: Garret Rowley on 04-04-2021 Glucose [Mass/Vol] 340 mg/dL High 70 - 100 mg/dL [facility] Work Phone: Comment on above: Test performed by gl ucose meter. Results may be 10%-15% lower than serum/plasma values. (CLIA ID [id number]) Interpretation and review of laboratory results Abnormal [facility] Work Phone: [phone] Test Performed by [employer], [facility] [place] [address] [facility] Work Phone: [phone] [facility] Work Phone: [phone] Glucose [Mass/Vol] 229 mg/dL High 70 - 100 mg/dL [facility] Work Phone: [phone] Comment on above: Test performed by gl ucose meter. Results may be 10%-15% lower than serum/plasma values. (CLIA ID [id number]) Interpretation and review of laboratory results Abnormal [facility] Work Phone: [phone] Test Performed by [employer], [facility] [place] [address] [facility] Work Phone: [phone] [facility] Work Phone: [phone] Glucose [Mass/Vol] 148 mg/dL High 70 - 100 mg/dL [facility] Work Phone: [phone] Comment on above: Test performed by gl ucose meter. Results may be 10%-15% lower than serum/plasma values. (CLIA ID [id number]) Interpretation and review of laboratory results Abnormal [facility] Work Phone: [phone] Test Performed by [employer], [facility] [place] [address] [facility] Work Phone: [phone] [facility] Work Phone: [phone] Glucose [Mass/Vol] 157 mg/dL High 70 - 100 mg/dL [facility] Work Phone: [phone] Comment on above: Test performed by gl ucose meter. Results may be 10%-15% lower than serum/plasma values. (CLIA ID [id number]) Interpretation and review of laboratory results Abnormal [facility] Work Phone: [phone] Test Performed by [employer], [facility] [place] [address] [facility] Work Phone: [phone] [facility] Work Phone: [phone] Glucose [Mass/Vol] 191 mg/dL High 70 - 100 mg/dL [facility] Work Phone: [phone] Comment on above: Test performed by gl ucose meter. Results may be 10%-15% lower than serum/plasma values. (CLIA ID [id number]) Interpretation and review of laboratory results Abnormal [facility] Work Phone: Test Performed by [facility] [employer] [facility], [address] [place] [address] [facility] Work Phone: [facility] Work Phone: Glucose [Mass/Vol] 152 mg/dL High 70 - 100 mg/dL [facility] Work Phone: Comment on above: Test performed by gl ucose meter. Results may be 10%-15% lower than serum/plasma values. (CLIA ID [id number]) Interpretation and review of laboratory results Abnormal [facility] Work Phone: Test Performed by [facility] [employer] [facility], [facility] [place] [address] [facility] Work Phone: [facility] Work Phone: Basic Metabolic Panelon 05- Calcium [Mass/Vol] 10.1 mg/dL Normal 8.4-10.4 [facility] Comment on above: Performed By: #### B MP3, HEMOG #### [facility] [employer] [place] [address] [place], [place] Anion gap [Moles/Vol] 6 mmol/L Normal 3-13 [facility] Comment on above: Performed By: #### B MP3, HEMOG #### [facility] [employer] [place] [address] [place] [address] CO2 [Moles/Vol] 29 mmol/L Normal 22-30 [facility] Comment on above: Performed By: #### B MP3, HEMOG #### [facility] [employer] [address] [address] Creatinine [Mass/Vol] 0.97 mg/dL Normal 0.52-1.25 [facility] Comment on above: Performed By: #### B MP3, HEMOG #### [facility] [employer] [place] [address] [place] [address] GFR/1.73 sq M.predicted among blacks MDRD (S/P/Bld) [Vol rate/Area] 66.5 mL/min/{1.73_m2} Normal >60 [facility] Comment on above: Performed By: #### B MP3, HEMOG #### [facility] [address] [place] [address] GFR/1.73 sq M.predicted among non-blacks MDRD (S/P/Bld) [Vol rate/Area] 57.4 mL/min/{1.73_m2} Abnormal >60 [facility] Comment on above: Result Comment: KDIG O guidelines provide the following GFR categories: Stage GFR(ml/min/1.73 m2) Terms G1 >=90 Normal or high G2 60-89 Mildly decreased* G3a 45-59 Mildly to moderately decreased G3b 30-44 Moderately to severely decreased G4 15-29 Severely decreased G5 <15 Kidney failure *Relative to young adult level. In the absence of evidence of kidney damage, neither GFR category G1 nor G2 fulfill the criteria for CKD. The CKD-EPI equation is validated in individuals 18 years of age and older. Currently the best equation for estimating glomerular filtration rate (GFR) from serum creatinine in children is the Bedside Diaz equation. It is less accurate in patients with extremes of muscle mass, restriction of dietary protein, ingestion of creatine, extra-renal metabolism of creatinine, or treatment with medications that affect renal tubular creatinine secretion. Performed By: #### Tayler MP3, HEMOG #### [facility] [address] [place] [address] Glucose [Mass/Vol] 157 mg/dL High 70-100 [facility] Comment on above: Performed By: #### B MP3, HEMOG #### [facility] [address] [place] [address] Urea nitrogen [Mass/Vol] 16 mg/dL Normal 7-20 [facility] Comment on above: Performed By: #### B MP3, HEMOG #### [facility] [address] [place] [address] Chloride [Moles/Vol] 101 mmol/L Normal 98-107 [facility] Comment on above: Performed By: #### B MP3, HEMOG #### [facility] [address] [place], [place] Potassium [Moles/Vol] 4.6 mmol/L Normal 3.5-5.1 [facility] Comment on above: Performed By: #### B MP3, HEMOG #### [facility] [address] [place], [place] Sodium [Moles/Vol] 135 mmol/L Normal 135-145 [facility] Comment on above: Performed By: #### B MP3, HEMOG #### [place] [address] [address] [place], [place] Hemogramon 03-28-2021 Erythrocyte distribution width (RBC) [Ratio] 12.5 % Normal 11.5-14.5 [facility] Comment on above: Performed By: #### B MP3, HEMOG #### [place] [address] [address] [place], [place] Hematocrit (Bld) [Volume fraction] 36.0 % Normal 35.0-47.0 [facility] Comment on above: Performed By: #### B MP3, HEMOG #### [place] [address] [address] [place], [place] Hemoglobin (Bld) [Mass/Vol] 12.2 g/dL Normal 11.7-16.0 [facility] Comment on above: Performed By: #### B MP3, HEMOG #### [place] [address] [address] [place], [place] MCH (RBC) [Entitic mass] 29.8 pg Normal 26.0-34.0 [facility] Comment on above: Performed By: #### B MP3, HEMOG #### [place] [address] [address] [place], [place] MCHC 33.8 % Normal 32.0-36.0 [facility] Comment on above: Performed By: #### B MP3, HEMOG #### [place] [address] [address] [place], [place] MCV (RBC) [Entitic vol] 88.4 fL Normal 79.0-98.0 [facility] Comment on above: Performed By: #### B MP3, HEMOG #### [facility] [address] [place], [place] Platelet mean volume (Bld) [Entitic vol] 8.9 fL Normal 7.4-10.4 [facility] Comment on above: Performed By: #### B MP3, HEMOG #### [facility] [address] [place], [place] Platelets (Bld) [#/Vol] 218 10*3/uL Normal 140-440 [facility] Comment on above: Performed By: #### B MP3, HEMOG #### [facility] [address] [place], [place] RBC (Bld) [#/Vol] 4.07 10*6/uL Normal 3.80-5.20 [facility] Comment on above: Performed By: #### B MP3, HEMOG #### [facility] [address] [place], [place] WBC (Bld) [#/Vol] 6.9 10*3/uL Normal 3.6-10.7 [facility] Comment on above: Performed By: #### B MP3, HEMOG #### [facility] [address], [place] Vital Signs Date Time Vital Sign Value Performing Clinician Facility 12-02-2024 13:05-0500 Body height 160.[address] Marta Koehler MD Work Phone: [facility] 12-02-2024 13:05-0500 Body mass index (BMI) [Ratio] 40.7 kg/m2 Dr. Marta Koehler MD Work Phone: [facility] 12-02-2024 13:05-0500 Body weight 104.[address] Marta Koehler MD Work Phone: [facility] 12-02-2024 13:05-0500 Diastolic blood pressure 63 mm[Hg] Dr. Marta Koehler MD Work Phone: [facility] 12-02-2024 13:05-0500 Heart rate 56 /min Dr. Marta Koehler MD Work Phone: [facility] 12-02-2024 13:05-0500 Respiratory rate 18 /min Dr. Marta Koehler MD Work Phone: [phone])034-819769 [place] [address] 12-02-2024 13:05-0500 SaO2% (BldA) [Mass fraction] 98 % Dr. Marta Koehler MD Work Phone: 5(386)625-534495 [place] [address] 12-02-2024 13:05-0500 Systolic blood pressure 161 mm[Hg] Dr. Marta Koehler MD Work Phone: 6(123)106-295595 [place] [address] 12-01-2024 10:05-0500 Body temperature 97.4 [degF] Dr. Marta Koehler MD Work Phone: [phone])[phone] [place] [address] 12-01-2024 10:05-0500 Diastolic blood pressure 62 mm[Hg] Dr. Marta Koehler MD Work Phone: 1(047)487-402095 [place] [address] 12-01-2024 10:05-0500 Heart rate 58 /min Dr. Marta Koehler MD Work Phone: 4(155)335-147595 [place] [address] 12-01-2024 10:05-0500 Respiratory rate 16 /min Dr. Marta Koehler MD Work Phone: 6(409)013-213595 [place] [address] 12-01-2024 10:05-0500 Systolic blood pressure 182 mm[Hg] Dr. Marta Koehler MD Work Phone: 3(986)864-482595 [place] [address] 12-01-2024 08:51-0500 Body mass index (BMI) [Ratio] 39.8 kg/m2 Dr. Marta Koehler MD Work Phone: 5(013)730-420395 [place] [address] 12-01-2024 08:51-0500 Body weight 102.[address] Marta Koehler MD Work Phone: 2(159)[phone] [place] [address] 12-01-2024 08:51-0500 SaO2% (BldA) [Mass fraction] 97 % Dr. Marta Koehler MD Work Phone: 5(797)402-588995 [place] [address] 09-27-2024 11:04-0500 Body temperature 98 [degF] Dr. Marta Koehler MD Work Phone: [facility] 09-27-2024 11:04-0500 Body weight 106.[address] Marta Koehler MD Work Phone: [facility] 09-27-2024 11:04-0500 Diastolic blood pressure 64 mm[Hg] Dr. Marta Koehler MD Work Phone: [facility] 09-27-2024 11:04-0500 Heart rate 59 /min Dr. Marta Koehler MD Work Phone: [facility] 09-27-2024 11:04-0500 Respiratory rate 18 /min Dr. Marta Koehler MD Work Phone: [facility] 09-27-2024 11:04-0500 SaO2% (BldA) [Mass fraction] 97 % Dr. Marta Koehler MD Work Phone: [facility] 09-27-2024 11:04-0500 Systolic blood pressure 157 mm[Hg] Dr. Marta Koehler MD Work Phone: [facility] 01-19-2023 11:49-0400 Diastolic blood pressure 79 mm[Hg] Dr. Marta Koehler Work Phone: [facility] 01-19-2023 11:49-0400 Heart rate 96 /min Dr. Marta Koehler Work Phone: [facility] 01-19-2023 11:49-0400 Systolic blood pressure 142 mm[Hg] Dr. Marta Koehler Work Phone: [facility] 01-19-2023 08:21-0400 Body temperature 98.4 [degF] Dr. Marta Koehler Work Phone: [facility] 01-19-2023 08:21-0400 Respiratory rate 16 /min Dr. Marta Koehler Work Phone: [facility] 01-19-2023 08:21-0400 SaO2% (BldA) [Mass fraction] 99 % Dr. Marta Koehler Work Phone: [facility] 01-19-2023 05:15-0400 Body mass index (BMI) [Ratio] 41.5 kg/m2 Dr. Marta Koehler Work Phone: [facility] 01-19-2023 05:15-0400 Body weight 106.[address] Marta Koehler Work Phone: [facility] 01-18-2023 12:23-0500 Body height 160.[address] Marta Koehler Work Phone: [facility] 01-17-2023 21:52-0500 Body temperature 97.2 [degF] Dr. Mrata Koehler Work Phone: [facility] 01-17-2023 21:52-0500 Diastolic blood pressure 47 mm[Hg] Dr. Marta Koehler Work Phone: [facility] 01-17-2023 21:52-0500 Heart rate 59 /min Dr. Marta Koehler Work Phone: [facility] 01-17-2023 21:52-0500 Respiratory rate 18 /min Dr. Marta Koehler Work Phone: [facility] 01-17-2023 21:52-0500 SaO2% (BldA) [Mass fraction] 97 % Dr. Marta Koehler Work Phone: [facility] 01-17-2023 21:52-0500 Systolic blood pressure 141 mm[Hg] Dr. Marta Koehler Work Phone: [facility] 01-17-2023 20:48-0500 Body height 160.[address] Marta Koehler Work Phone: [facility] 01-17-2023 20:48-0500 Body mass index (BMI) [Ratio] 41.1 kg/m2 Dr. Marta Koehler Work Phone: [facility] 01-17-2023 20:48-0500 Body weight 105.[address] Marta Koehler Work Phone: [facility] 11-15-2022 10:00-0500 Respiratory rate 18 /min [facility] 11-15-2022 08:58-0500 Body temperature 98.9 [degF] [facility] 11-15-2022 08:58-0500 Diastolic blood pressure 59 mm[Hg] [facility] 11-15-2022 08:58-0500 Heart rate 88 /min [facility] 11-15-2022 08:58-0500 SaO2% (BldA) [Mass fraction] 96 % [facility] 11-15-2022 08:58-0500 Systolic blood pressure 173 mm[Hg] [facility] 11-13-2022 13:44-0500 Inhaled oxygen flow rate 2 L/min [facility] 11-13-2022 13:39-0500 Body height 165.1 cm [facility] 11-13-2022 13:39-0500 Body mass index (BMI) [Ratio] 39.2 kg/m2 [facility] 11-13-2022 13:39-0500 Body weight 107 kg [facility] 09-19-2022 11:10-0500 Diastolic blood pressure 62 mm[Hg] Danica Smith MD Work Phone: [facility] 09-19-2022 11:10-0500 Heart rate 67 /min Danica Smith MD Work Phone: [facility] 09-19-2022 11:10-0500 Respiratory rate 18 /min Danica Smith MD Work Phone: [facility] 09-19-2022 11:10-0500 SaO2% (BldA) [Mass fraction] 100 % Danica Smith MD Work Phone: [facility] 09-19-2022 11:10-0500 Systolic blood pressure 157 mm[Hg] Danica Smith MD Work Phone: [facility] 09-19-2022 10:54-0500 Body temperature 97.3 [degF] Danica Smith MD Work Phone: [facility] 09-19-2022 10:00-0500 Body height 160 cm Danica Smith MD Work Phone: [facility] 09-19-2022 10:00-0500 Body weight 106.59 kg Danica Smith MD Work Phone: [facility] 08-29-2022 11:20-0400 Body height 160 cm Rajesh Garcia MD Work Phone: [facility] 08-29-2022 11:20-0400 Body temperature 97.81 [degF] Rajesh Garcia MD Work Phone: [facility] 08-29-2022 11:20-0400 Body weight 109.32 kg Rajesh Garcia MD Work Phone: [facility] 08-29-2022 11:20-0400 Diastolic blood pressure 62 mm[Hg] Rajesh Garcia MD Work Phone: [facility] 08-29-2022 11:20-0400 Heart rate 75 /min Rajesh Garcia MD Work Phone: [facility] 08-29-2022 11:20-0400 SaO2% (BldA) [Mass fraction] 95 % Rajesh Garcia MD Work Phone: [facility] 08-29-2022 11:20-0400 Systolic blood pressure 136 mm[Hg] Rajesh Garcia MD Work Phone: [facility] 04-05-2021 09:43-0400 Body temperature 98.29 [degF] Garret Rowley MD Work Phone: [facility] Work Phone: 04-05-2021 09:43-0400 Diastolic blood pressure 67 mm[Hg] Garrte Rowley MD Work Phone: [facility] Work Phone: [...] 122.92 kg Garret Rowley MD Work Phone: [facility] Work Phone: Encounters Encounter Date Encounter Type Care Provider Facility Start: 03-15-2025 End: 03-15-2025 ambulatory Marta Koehler Facility:[facility] Start: 03-03-2025 End: 03-03-[address] Marta Koehler MD -Laboratory, [facility] Start: 03-03-2025 End: 03-03-[address] Marta Koehler MD Work Phone: [facility] Work Phone: Start: 02-16-2025 End: 02-16-[address] Marta Koehler MD Work Phone: [facility] Work Phone: Start: 02-16-2025 End: 02-16-[address] Duarte Espinal MD -Laboratory Work Phone: Start: 02-16-2025 End: 02-16-2025 ambulatory Marta Koehler Facility:[facility] Start: 01-25-2025 ambulatory [facility] Facility :[facility] Start: 01-11-2025 End: 01-11-[address] Marta Koehler MD Work Phone: [facility] Work Phone: Start: 01-11-2025 End: 01-11-2025 Patient encounter procedure Carlita ABRAMSC -Radiology, [place] Work Phone: Start: 01-11-2025 End: 01-11-2025 ambulatory Marta Koehler Facility:[facility] Start: 12-09-2024 End: 12-09-[address] Pasha Vargas MD -Laboratory, [facility] Start: 12-09-2024 End: 12-09-2024 ambulatory Pasha Vargas Facility:[facility] Start: 12-02-2024 End: 12-02-2024 Patient encounter procedure Irma ABRAMSC -[facility] Work Phone: Start: 12-02-2024 End: 12-02-2024 ambulatory Irma Reynaga Facility:[facility] Start: 12-01-2024 End: 12-01-2024 Patient encounter procedure Irma ABRAMSC -Medical Out Work Phone: Start: 12-01-2024 End: 12-01-2024 ambulatory Irma Reynaga Facility:[facility] Start: 11-30-2024 End: 11-30-[address] Marta Koehler MD -Laboratory, [facility] Work Phone: Start: 11-30-2024 End: 11-30-2024 ambulatory Marta Koehler Facility:[facility] Start: 11-25-2024 ambulatory Marcomirian Chin Facility :[facility] Start: 11-24-2024 End: 11-24-[address] Marta Koehler MD -Laboratory, [facility] Start: 11-24-2024 End: 11-24-2024 ambulatory Marta Koehler Facility:[facility] Start: 10-25-2024 End: 10-25-2024 Patient encounter procedure Irma Reynaga NP-C -Laboratory Work Phone: Start: 10-25-2024 End: 10-25-2024 ambulatory Irma Reynaga Facility:[facility] Start: 10-19-2024 End: 10-19-2024 Patient encounter procedure Irma Reynaga NP-C -Radiology, [facility] Work Phone: Start: 10-19-2024 End: 10-19-2024 ambulatory Irma Reynaga Facility:[facility] Start: 10-05-2024 End: 10-05-[address] Marta Koehler MD -Laboratory, [facility] Start: 10-05-2024 End: 10-05-2024 ambulatory Marta Koehler Facility:[facility] Start: 09-30-2024 Non-patient / Non-visit Abeba Shea NP-C -[facility] Work Phone: Start: 09-30-2024 ambulatory Abeba Shea NP Facili ty:[facility] Start: 09-29-2024 ambulatory Alexis Hays Facility:[facility] Start: 09-29-2024 Non-patient / Non-visit Dr. Alexis Hays MD -[facility] Start: 09-29-2024 End: 09-29-2024 Patient encounter procedure Abeba Shea TRUCK MECHANIC APPRENTICE-C -Cardiovascular Services Work Phone: Start: 09-29-2024 End: 09-29-2024 ambulatory Abeba Shea NP Facility:[facility] Start: 09-27-2024 End: 09-27-2024 Patient encounter [facility] Start: 09-27-2024 End: 09-27-2024 Patient encounter procedure Irma Reynaga TRUCK MECHANIC APPRENTICE-C -[facility] Work Phone: Start: 09-27-2024 End: 09-27-2024 ambulatory Marta Koehler Facility:[facility] Start: 09-27-2024 End: 09-27-2024 ambulatory Irma Ronnell Facility:[facility] Start: 09-16-2024 End: 09-16-2024 ambulatory Marta Koehler Facility:[facility] Start: 09-16-2024 End: 09-16-2024 ambulatory Abeba Shea NP Facility:[facility] Start: 08-20-2024 ambulatory Amalia Powers Facili ty:[facility] Start: 07-29-2024 End: 07-29-2024 ambulatory Selwynwalt Robertano Facility:[facility] Start: 06-29-2024 End: 06-29-2024 ambulatory Marta Koehler Facility:[facility] Start: 06-04-2024 End: 06-04-2024 ambulatory Pasha Vargas Facility:[facility] Start: 06-01-2024 ambulatory Abeba Shea NP Facili ty:[facility] Start: 06-01-2024 End: 06-01-2024 ambulatory Alexis Lis Facility:[facility] Start: 05-25-2024 End: 05-25-2024 ambulatory Marco Chin Facility:[facility] Start: 05-14-2024 End: 05-14-2024 ambulatory Alexis Lis Facility:[facility] Start: 05-07-2024 End: 05-07-2024 ambulatory Marco Chin Facility:[facility] Start: 04-28-2024 End: 04-28-2024 ambulatory Marta Koehler Facility:[facility] Start: 02-19-2024 End: 02-19-2024 ambulatory [facility] Work Phone: Start: 02-19-2024 End: 02-19-2024 [facility] Start: 02-13-2024 End: 02-13-2024 ambulatory [facility] Work Phone: Start: 02-13-2024 End: 02-13-2024 Patient encounter procedure [facility] Work Phone: Start: 01-23-2024 End: 01-23-2024 ambulatory [facility] Work Phone: Start: 01-23-2024 End: 01-23-2024 Patient encounter procedure [facility] Work Phone: Start: 11-05-2023 End: 11-05-[address] Marta Koehler Work Phone: [facility] Work Phone: Start: 11-05-2023 End: 11-05-[address] Marta Koehler Work Phone: [facility] Start: 10-10-2023 End: 10-10-[address] Marta Koehler Work Phone: [facility] Work Phone: Start: 10-10-2023 End: 10-10-[address] Marta Koehler Work Phone: [facility] Work Phone: Start: 10-09-2023 End: 10-09-[address] Marta Koehler Work Phone: [facility] Work Phone: Start: 10-09-2023 End: 10-09-[address] Marta Koehler Work Phone: [facility] Start: 08-01-2023 End: 08-01-[address] Marta Koehler Work Phone: [facility] Start: 07-28-2023 End: 07-28-[address] Marta Koehler Work Phone: [facility] Work Phone: Start: 07-24-2023 End: 07-24-[address] Marta Koehler Work Phone: [facility] Work Phone: Start: 07-01-2023 End: 07-01-[address] Marta Koehler Work Phone: [facility] Work Phone: Start: 07-01-2023 End: 07-01-[address] Marta Koehler Work Phone: [facility] Start: 05-28-2023 End: 05-28-[address] Marta Koehler Work Phone: [facility] Start: 04-09-2023 Non-patient / Non-visit Dr. Marta Koehler Work Phone: [facility] Start: 04-09-2023 End: 04-09-[address] Marta Koehler Work Phone: [facility] Work Phone: Start: 04-09-2023 End: 04-09-[address] Mart[facility]oehler [facility] Work [facility]: Start: 04-01-2023 End: 04-01-[address] Marta Koehler Work Phone: [facility] Start: 03-28-2023 End: 03-28-[address] Marta Koehler Work Phone: [facility] Start: 03-25-2023 End: 03-25-[address] Marta Koehler Work Phone: [facility] Start: 03-06-2023 End: 03-06-[address] Marta Koehler Work Phone: [facility] Start: 03-05-2023 End: 03-05-[address] Marta Koehler Work Phone: [facility] Work Phone: Start: 03-05-2023 End: 03-05-[address] Marta Koehler Work Phone: [facility] Start: 02-27-2023 End: 02-27-[address] Marta Koehler Work Phone: [facility] Work Phone: Start: 02-27-2023 End: 02-27-[address] Marta Koehler Work Phone: [facility] Start: 02-26-2023 End: 02-26-[address] Marta Koehler Work Phone: [facility] Work Phone: Start: 02-26-2023 End: 02-26-[address] Marta Koehler Work Phone: [facility] Start: 02-18-2023 End: 02-18-[address] Marta Koehler Work Phone: [facility] Start: 02-14-2023 End: 02-14-[address] Marta Koehler Work Phone: [facility] Start: 02-12-2023 End: 02-12-[address] Marta Koehler Work Phone: [facility] Work Phone: Start: 02-12-2023 End: 02-12-[address] Marta Koehler Work Phone: [facility] Start: 02-11-2023 End: 02-11-[address] Marta Koehler Work Phone: [facility] Work Phone: Start: 02-11-2023 End: 02-11-[address] Marta Koehler Work Phone: [facility] Start: 01-21-2023 End: 01-21-[address] Marta Koehler Work Phone: [facility] Work Phone: Start: 01-21-2023 End: 01-21-[address] Marta Koehler Work Phone: [facility] Start: 01-19-2023 Non-patient / Non-visit Dr. Marta Koehler Work Phone: [facility] Start: 01-18-2023 End: 01-18-2023 Non-patient / Non-visit Dr. Marta Koehler Work Phone: [facility] Start: 01-18-2023 Non-patient / Non-visit Dr. Marta Koehler Work Phone: [facility] Start: 01-17-2023 End: 01-19-2023 Evaluation and management of inpatient Dr. Marta Koehler Work Phone: [facility]-Progressive Care Unit Start: 01-17-2023 End: 01-17-[address] Marta Koehler Work Phone: [facility] Work Phone: Start: 01-17-2023 End: 01-17-[address] Marta Koehler Work Phone: [facility] Start: 01-16-2023 End: 01-16-[address] Marta Koehler Work Phone: [facility] Work Phone: Start: 01-16-2023 End: 01-16-[address] Marta Koehler Work Phone: [facility] Start: 12-16-2022 End: 12-16-[address] Marta Koehler Work Phone: [facility] Start: 12-09-2022 End: 12-09-[address] Marta Koehler Work Phone: [facility] Work Phone: Start: 12-09-2022 End: 12-09-[address] Marta Koehler Work Phone: [facility] Start: 12-09-2022 End: 12-09-[address] Marta Koehler Work Phone: [facility] Start: 11-14-2022 End: 11-14-2022 Non-patient / Non-visit Dr. Marta Koehler Work Phone: [facility] Start: 11-13-2022 End: 11-15-2022 [facility] Start: 11-05-2022 End: 11-05-2022 Non-patient / Non-visit Dr. Marta Koehler Work Phone: [facility] Start: 10-24-2022 Telephone encounter Rajesh Garcia MD Work Phone: General Surgery Comment on above: Patient Update (N/V) Start: 10-16-2022 End: 10-16-2022 Patient encounter procedure [facility] Start: 09-26-2022 End: 09-26-2022 ambulatory [facility] Work Phone: Start: 09-26-2022 End: 09-26-2022 Patient encounter procedure [facility] Start: 09-26-2022 End: 09-26-2022 ambulatory RAJESH GARCIA Facility:[facility] Start: 09-20-2022 End: 09-20-2022 ambulatory RAJESH GARCIA Facility:[facility] Start: 09-20-2022 End: 09-20-2022 Subsequent hospital visit by physician [facility] ([facility]) Work Phone: Cat Scan Comment on above: Abnormal weight loss [R63.4] Start: 09-19-2022 ambulatory MARTA KASHMIRMARTINE Lau cility:[facility] Start: 09-19-2022 End: 09-19-2022 Subsequent hospital visit by physician Danica Smith MD Work Phone: LD SURGERY Comment on above: Abnormal weight loss [R63.4] Start: 09-17-2022 Telephone encounter Rajesh Garcia MD Work Phone: General Surgery Comment on above: Results Other specified diso rders of kidney and ureter (Primary Dx); Renal mass, left Start: 09-13-2022 End: 09-13-2022 ambulatory RAJESH GARCIA Facility:[facility] Start: 09-13-2022 End: 09-13-2022 Subsequent hospital visit by physician [facility] Work Phone: Radiology Comment on above: Abnormal weight loss [R63.4] Start: 09-12-2022 ambulatory Rajesh lorenzo MD Work Phone: General Surgery Comment on above: Bowel Prep Start: 09-12-2022 E-mail encounter fro m caregiver Rajesh Garcia MD Work Phone: [facility] Start: 09-10-2022 Telephone encounter Danica Llanes MD Work Phone: General Surgery Comment on above: Patient Question (Co lonoscopy prep/) Start: 09-05-2022 ambulatory RAJESH GARCIA Facil ity:[facility] Start: 09-05-2022 End: 09-05-2022 Subsequent hospital visit by physician [facility] Work Phone: RADIO [facility] SCAN [facility] Comment on above: Abnormal weight loss [R63.4] Start: 09-05-2022 ambulatory RAJESH Ochoa ity:[facility] Start: 09-05-2022 End: 09-05-2022 Subsequent hospital visit by physician Ct Prep [facility] Cat Scan Comment on above: Canceled (CC cx: Equ ipment, Prep, Appropriateness) Start: 08-30-2022 Telephone encounter Rajesh Garcia MD Work Phone: General Surgery Comment on above: 09/19/2022 COLON/EGD [facility] Start: 08-29-2022 End: 08-29-2022 ambulatory MARTA KOEHLER Facility:[facility] Start: 08-29-2022 End: 08-29-2022 Patient encounter procedure Rajesh Garcia MD Work Phone: General Surgery Comment on above: Abnormal weight loss (Primary Dx); Abdominal pain, unspecified abdominal location Start: 04-05-2022 End: 04-05-[address] Marta Koehler Work Phone: [facility] Start: 04-02-2022 End: 04-02-[address] Marta Koehler Work Phone: [facility] Start: 03-28-2022 End: 03-28-[address] Marta Koehler Work Phone: [facility]-Laboratory Start: 02-19-2022 Non-patient / Non-visit Dr. Marta Koehler Work Phone: [facility] Start: 02-19-2022 End: 02-19-[address] Marta Koehler Work Phone: [facility]-Cardiovascular Services Start: 02-07-2022 End: 02-07-2022 Patient encounter procedure [facility] Start: 02-04-2022 Refill Kelly Fields MD Work Phone: OB/Gynecology Comment on above: Refill Request Start: 01-24-2022 End: 01-24-2022 Patient encounter procedure [facility] Start: 01-23-2022 End: 01-23-2022 Patient encounter procedure [facility] Start: 01-07-2022 End: 01-07-2022 [facility] Start: 12-31-2021 End: 12-31-2021 Patient encounter procedure [facility] Start: 12-21-2021 End: 12-21-2021 Patient encounter procedure [facility] Start: 04-04-2021 End: 04-05-2021 Subsequent hospital visit by physician Garret Rowley MD Work Phone: [facility] MED SURG Comment on above: Arrived Procedures Date Procedure Procedure Detail Performing Clinician Start: 01-11-2025 X-ray of chest, PA a nd lateral views Dr. Marta Koehler MD Work Phone: Start: 10-19-2024 Upper gastrointestin al tract contrast procedure Dr. Marta Koehler MD Work Phone: Start: 09-29-2024 Cardiovascular stres s test using pharmacologic stress agent Dr. Marta Koehler MD Work Phone: Start: 01-23-2024 Computed tomography of abdomen and pelvis with intravenous contrast Start: 07-28-[address] Marta Koehler Work Phone: Start: 01-18-[address] Opal Koehler Work Phone: Start: 11-13-2022 Total nephrectomy Start: 09-20-2022 Ct abdomen & pelvis w/o contrst 1/> body re Rajesh Garcia MD Work Phone: Start: 09-19-2022 Gluc bld gluc mntr d ev cleared fda spec home use César C Nicolas CAPTION WRITER.TERMINAL MAKEUP OPERATOR Work Phone: Start: 09-13-2022 Us retroperitoneal r eal time w/image complete Rajesh Garcia MD Work Phone: Start: 02-07-2022 Radionuclide gastric emptying study Start: 04-05-2021 Gluc bld gluc mntr d [...] Treatment Date Care Activity Detail Author Start: 02-19-2024 Procedure [facility] Start: 07-11-2023 Covid-19 Vaccine ( season) Covid-19 Vaccine ( season) [facility] Start: 07-11-2023 Influenza vaccination Influenza Vaccine (#1) [facility] Start: 07-01-2023 Procedure [facility] Start: 01-20-2023 Dual pressure spontaneous ventilation support [facility] Start: 01-19-2023 Dual pressure spontaneous ventilation support [facility] Start: 01-19-2023 Patient discharge [facility] Start: 01-18-2023 Dual pressure spontaneous ventilation support [facility] Start: 01-18-2023 Patient referral to dietitian [facility] Start: 01-18-2023 Care regimes management [facility] Start: 01-18-2023 Notification of physician [facility] Start: 01-18-2023 Inhalation therapy procedure [facility] Start: 01-17-2023 Following clinical pathway protocol [facility] Start: 01-17-2023 Assessment of risk of venous thromboembolism [facility] Start: 01-17-2023 Care regimes management [facility] Start: 01-17-2023 Incentive spirometry [facility] Start: 01-17-2023 Insertion of catheter into peripheral vein [facility] Start: 01-17-2023 Introduction of urinary catheter [facility] Start: 01-17-2023 Measuring intake and output [facility] Start: 01-17-2023 Oxygen therapy [facility] Start: 01-17-2023 Providing care according to standard [facility] Start: 01-17-2023 Provision of activity privileges [facility] Start: 01-17-2023 Referral to contact center assistant [facility] Start: 01-17-2023 Referral to service [facility] Start: 01-17-2023 [facility] Start: 01-17-2023 Verification routine [facility] Start: 01-17-2023 Admission procedure [facility] Start: 01-17-2023 End: 01-18-2023 [facility] Start: 01-17-2023 Patient referral to dietitian [facility] Start: 12-16-2022 Elastase, pancreatic (el-1), fecal; quantitative [facility] Start: 12-16-2022 Fat [Presence] in Stool [facility] Start: 11-15-2022 Patient discharge [facility] Start: 11-15-2022 End: 11-15-2022 Referral to service [facility] Start: 11-14-2022 Referral to service [facility] Start: 11-14-2022 Referral to occupational therapist [facility] Start: 11-14-2022 Referral to service [facility] Start: 11-14-2022 Removal of urinary catheter [facility] Start: 11-13-2022 End: 11-14-2022 [facility] Start: 11-13-2022 Application of intermittent pneumatic compression device [facility] Start: 11-13-2022 Following clinical pathway protocol [facility] Start: 11-13-2022 Deep breathing and coughing exercises [facility] Start: 11-13-2022 Incentive spirometry [facility] Start: 11-13-2022 Measuring intake and output [facility] Start: 11-13-2022 Oxygen therapy [facility] Start: 11-13-2022 Patient education [facility] Start: 11-13-2022 Provision of activity privileges [facility] Start: 11-13-2022 Taking patient vital signs [facility] Start: 11-13-2022 Vital signs measurements [facility] Start: 11-13-2022 Admission procedure [facility] Start: 11-13-2022 Inhalation therapy procedure [facility] Start: 11-10-2022 ADVANCE DIRECTIVE DISCUSSION ADVANCE DIRECTIVE DISCUSSION [facility] Start: 11-10-2022 DEPRESSION ASSESSMENT DEPRESSION ASSESSMENT [facility] Start: 09-24-2022 End: 10-17-2023 Ct abdomen w/o & w/contrast material CT KIDNEY WO/W IVCON Radiology Routine Other specified disorders of kidney and ureter Expected: 09/24/2022 (Approximate), Expires: 10/17/2023 [facility] Work Phone: Comment on above: Expected: 09/24/2022 (Approximate), Expi res: 10/17/2023 Start: 09-18-2022 End: 11-18-2022 CREATININE BLD CREATININE BLD Lab Routine Renal mass, left Expected: 09/18/2022 (Approximate), Expires: 11/18/2022 [facility] Work Phone: Comment on above: Expected: 09/18/2022 (Approximate), Expi res: 11/18/2022 Start: 07-11-2022 Influenza vaccination INFLUENZA (#1) [facility] Start: 03-28-2022 Creatinine measurement Creatinine monitoring [facility] Work Phone: Start: 03-28-2022 Potassium monitoring Potassium monitoring [facility] Work Phone: Start: 11-10-2021 ADVANCE DIRECTIVE DISCUSSION ADVANCE DIRECTIVE DISCUSSION [facility] Start: 11-10-2021 DEPRESSION ASSESSMENT DEPRESSION ASSESSMENT [facility] Start: 07-11-2021 Influenza vaccination INFLUENZA (#1) [facility] Start: 04-19-2021 End: 04-19-2021 Patient encounter procedure 04/19/2021 Office Visit Neurosurgery Garret Rowley MD [address] [place] [id number] [facility] Start: 02-26-2021 Annual Wellness Visit (AWV) Annual Wellness Visit (AWV) [facility] Work Phone: Start: 01-31-2021 COVID-19 VACCINE (2 - Moderna risk 4-dose series) COVID-19 VACCINE (2 - Moderna risk 4-dose series) [facility] Start: 07-01-2019 Shingles Vaccine (3 of 3) Shingles Vaccine (3 of 3) [facility] Work Phone: Start: 07-01-2019 Shingrix Vaccine (2 of 2) Shingrix Vaccine (2 of 2) [facility] Start: 01-15-2016 Pneumococcal Vaccine: 65+ (2 - PPSV23 or PCV20) Pneumococcal Vaccine: 65+ (2 - PPSV23 or PCV20) [facility] Start: 06-16-2013 Hepatitis B screening URINE ALBUMIN:CREATININE RATIO [facility] Start: 06-15-2013 Hepatitis B surface antibody level LDL CHOLESTEROL [facility] Start: 12-16-2012 Hemoglobin A1c/Hemoglobin.total in Blood HBA1C [facility] Start: 2011 BONE DENSITY BONE DENSITY [facility] Start: 2011 Bone Density Screening Bone Density Screening [facility] Start: 2011 Pneumococcal 65+ years Vaccine (2 of 2 - PPSV23) Pneumococcal 65+ years Vaccine (2 of 2 - PPSV23) [facility] Work Phone: Start: 2011 PNEUMOVAX AGE 65 AND OVER WITH 5YR LOOKBACK (#1) PNEUMOVAX AGE 65 AND OVER WITH 5YR LOOKBACK (#1) [facility] Start: 2006 Hepatitis B Vaccine (1 of 3 - Risk 3-dose series) Hepatitis B Vaccine (1 of 3 - Risk 3-dose series) [facility] Start: 2006 RSV Vaccine (1 - 1-dose 60+ series) RSV Vaccine (1 - 1-dose 60+ series) [facility] Start: 2001 Screening for osteoporosis DEXA (modify frequency per FRAX score) [facility] Work Phone: Start: 1996 Screening for malignant neoplasm of breast Breast cancer screen [facility] Work Phone: Start: 1996 Screening for malignant neoplasm of colon Colon cancer screen colonoscopy [facility] Work Phone: Start: 1996 SHINGRIX VACCINE (1 of 2) SHINGRIX VACCINE (1 of 2) [facility] Start: 1991 COLOGUARD (FIT-DNA) COLOGUARD (FIT-DNA) [facility] Start: 1991 Colonoscopy COLONOSCOPY [facility] Start: 1991 COLORECTAL CANCER SCREENING COLORECTAL CANCER SCREENING [facility] Start: [address] COLONOGRAPHY [facility] Start: 1991 FECAL OCCULT BLOOD FECAL OCCULT BLOOD [facility] Start: 1991 SIGMOIDOSCOPY SIGMOIDOSCOPY [facility] Start: 1965 DTaP/Tdap/Td vaccine (1 - Tdap) DTaP/Tdap/Td vaccine (1 - Tdap) [facility] Work Phone: Start: 1965 SHINGRIX VACCINE (1 of 2) SHINGRIX VACCINE (1 of 2) [facility] Start: 1965 Urine microalbumin profile [facility] Start: 1964 ANNUAL PCP TEAM CHRONIC DISEASE VISIT ANNUAL PCP TEAM CHRONIC DISEASE VISIT [facility] Start: 1964 HEPATITIS C SCREENING HEPATITIS C SCREENING [facility] Start: 1958 Adult depression screening assessment DEPRESSION SCREENING [facility] Start: 1956 3 comp foot exam completed DIABETIC FOOT EXAM [facility] Start: 1956 Hepatitis C antibody, confirmatory test DILATED RETINAL EXAM [facility] Start: 1955 Lipid panel Lipid screen [facility] Work Phone: Start: 1951 PNEUMOCOCCAL: 65+ (1 - PCV) PNEUMOCOCCAL: 65+ (1 - PCV) [facility] Start: 1945 Hepatitis C screening Hepatitis C screen [facility] Work Phone: BIPAP BIPAP Respirator y Care Routine Every 4hr until discontinued starting 04/04/2021 [facility] Work Phone: Comment on above: Every 4hr until discontinued starting End: 08-29-2023 COLONOSCOPY DIAGNOSTIC COLONOSCOPY DIAGNOSTIC Endoscopy Routine Abnormal weight loss Abdominal pain, unspecified abdominal location 1 Occurrences starting 08/29/2022 until 08/29/2023 [facility] Work Phone: Comment on above: 1 Occurrences starting 08/29/2022 until 08/29/2023 End: 09-19-2022 COLONOSCOPY DIAGNOSTIC COLONOSCOPY DIAGNOSTIC Endoscopy Routine Abnormal weight loss Abdominal pain, unspecified abdominal location 1 Occurrences starting 09/19/2022 until 09/19/2022 [facility] Work Phone: Comment on above: 1 Occurrences starting 09/19/2022 until 09/19/2022 End: 09-28-2023 Ct abdomen & pelvis w/o contrast material CT ABD/PEL WO IVCON Radiology Routine Abnormal weight loss Abdominal pain, unspecified abdominal location 1 Occurrences starting 08/29/2022 until 09/28/2023 [facility] Work Phone: Comment on above: 1 Occurrences starting 08/29/2022 until 09/28/2023 Ct abdomen & pelvis w/o contrast material CT ABD/PEL WO IVCON Radiology Routine Abnormal weight loss Abdominal pain, unspecified abdominal location 09/05/2022 3:07 PM EDT [facility] Work Phone: End: 10-18-2023 Ct abdomen & pelvis w/o contrst 1/> body re CT KIDNEY/PELVIS WO/W IVCON Radiology Routine Abnormal weight loss 1 Occurrences starting 09/18/2022 until 10/18/2023 [facility] Work Phone: Comment on above: 1 Occurrences starting 09/18/2022 until 10/18/2023 End: 08-29-2023 EGD DIAGNOSTIC EGD DIAGNOSTIC Endoscopy Routine Abnormal weight loss Abdominal pain, unspecified abdominal location 1 Occurrences starting 08/29/2022 until 08/29/2023 [facility] Work Phone: Comment on above: 1 Occurrences starting 08/29/2022 until 08/29/2023 End: 09-19-2022 EGD DIAGNOSTIC EGD DIAGNOSTIC Endoscopy Routine Abnormal weight loss Abdominal pain, unspecified abdominal location 1 Occurrences starting 09/19/2022 until 09/19/2022 [facility] Work Phone: Comment on above: 1 Occurrences starting 09/19/2022 until 09/19/2022 Electrocardiographic procedure [facility] Work Phone: Electrocardiographic procedure [facility] Fat [Mass/mass] in Stool [facility] Fat.neutral [Presenc e] in Stool [facility] End: 04-04-2021 FL Greater Than 1 Hour FL Greater Than 1 Hour Imaging Routine Once for 1 Occurrences starting 04/04/2021 until 04/04/2021 [employer] Work Phone: Comment on above: Once for 1 Occurrences starting 04/04/20 until 04/04/2021 FL Greater Than 1 Hour FL Greate r Than 1 Hour Imaging Routine 04/04/2021 9:50 AM EDT [facility] Work Phone: Glucose [Mass/volume ] in Serum or Plasma [facility] Work Phone: Comment on above: 4X Daily (AC & HS) until discontinued st arting 04/04/2021 As Needed until disc ontinued starting 04/04/2021 Magnesium [Mass/volu me] in Serum or Plasma [facility] Oxygen therapy [[facility] Data Set] Initiate Oxygen Therapy Protocol Respiratory Care Routine Daily until discontinued starting 04/04/2021 [employer] Work Phone: Comment on above: Daily until discontinued starting 2020 Patient Education Hyperkalemia C h Dc ED Hyperkalemia [facility] Work Phone: Patient referral [facility] Work Phone: Procedure [facility] SURGICAL PATHOLOGY SURGICAL PATH OLOGY Lab Routine Generalized abdominal pain Nausea and vomiting, unspecified vomiting type Change in bowel habits Weight loss Abnormal weight loss Abdominal pain, unspecified abdominal location Release Upon Ordering for 1 Occurrences starting 09/19/2022 [facility] Work Phone: Comment on above: Release Upon Ordering for 1 Occurrences starting 09/19/2022 [facility] Immunizations Immunization Date Immunization Notes Care Provider [facility] 09-06-2022 influenza virus vaccine, unspecified formulation Ct (I-Stat) Work Phone: [facility] 01-31-2021 Covid (Moderna) [facility] 01-03-2021 Covid (Moderna) [facility] 08-17-2010 influenza virus vaccine, unspecified formulation Kelly Fields MD Work Phone: [facility] Work Phone: Payers Date Payer Category Payer Self-pay [id number] 2021 Unknown [id number] 2021 [employer] ( and others) [id number] 2011 Medicare [id number] 2011 Medicare MEDICARE MEDICAR E A AND B [id number] 2011-Present [phone] [address] [address] [place] [address] Medicare [id number] 2011 Medicare MEDICARE MEDICAR E A AND B [id number] 2011-Present [phone] [address] [address] [place] [address] Medicare [id number] 2011 Unknown FOR LIFE [id number] 2011-Present [phone] [address] [place] [address] Indemnity [id number] [employer] ( and others) [facility] FOR LIFE [id number] Department [facility] e ( and others) S FOR LIFE [id number] Unknown [id number] .462 Unknown [id number] 2.16840.1.343382.3.579.2 .462 Unknown [id number] 2.16840.1.674206.3.579.2 .462 Unknown [id number] 2.16840.1.286416.3.579.2 .462 Unknown [id number] 2.16.840.1.742715.3.579.2 .462 Unknown [id number] 2.16.840.1.020419.3.579.2 .462 Unknown [id number] 2.16.840.1.217631.3.579.2 .462 Unknown [id number] 2.16.840.1.120687.3.579.2 .462 Unknown [id number] 2.16840.1.954670.3.579.2 .462 Unknown [id number] 2.840.1.732572.3.579.2 .462 Unknown [id number] 2.840.1.342874.3.579.2 .462 Unknown [id number] 2.16840.1.232227.3.579.2 .462 Unknown [id number] 2.840.1.113411.3.579.2 .462 Unknown [id number] 2.840.1.887576.3.579.2 .462 Unknown [id number] 2.840.1.674339.3.579.2 .462 Unknown [id number] 2.840.1.935868.3.579.2 .462 Unknown [id number] 2.840.1.489872.3.579.2 .462 Unknown [id number] 2.840.1.784730.3.579.2 .462 Unknown [id number] 2.840.1.302849.3.579.2 .462 Unknown [id number] 2.840.1.927982.3.579.2 .462 Unknown [id number] 2.840.1.019898.3.579.2 .462 Unknown [id number] 2.840.1.615651.3.579.2 .462 Unknown [id number] 2.840.1.531816.3.579.2 .462 Unknown [id number] 2.840.1.065246.3.579.2 .462 Unknown [id number] 2.840.1.768788.3.579.2 .462 Unknown [id number] 2.840.1.584695.3.579.2 .462 Unknown [id number] 2.840.1.513234.3.579.2 .462 Unknown [id number] 2.16.840.1.106442.3.579.2 .462 Unknown [id number] 2.16.840.1.328590.3.579.2 .462 Unknown [id number] 2.16.840.1.112763.3.579.2 .462 Unknown [id number] 2.16840.1.459270.3.579.2 .462 Unknown [id number] 2.16840.1.785837.3.579.2 .462 Social History Date Type Detail Facility Start: 04-05-2021 End: 05-10-2024 Tobacco smoking status NHIS Former smoker [facility] Start: 11-10-1968 End: 02-12-1997 History of tobacco use Current smoker [facility] Start: 11-10-1968 End: 02-12-1997 History of tobacco use Cigarette Smoker [facility] Start: 10-18-2020 End: 04-05-2021 Cigarettes smoked current (pack per day) - Reported [facility] Work Phone: Start: 08-26-2011 End: 04-05-2021 Tobacco use and exposure Never used [facility] Start: 04-05-2021 Alcohol intake Ex-drinker (finding) [facility] [employer] Phone: Start: 1945 Sex Assigned At Not on file [facility] [place] Work Phone: Start: 08-19-2022 End: 09-26-2022 Exposure to SARS-CoV-2 (event) Not sure [facility] Start: 07-03-2020 End: 07-24-2023 Tobacco smoking status [facility] Unknown if ever smoked [facility] Start: 12-08-2019 None [facility] Start: 12-08-2019 Spouse/ Signif icant Other [facility] Start: 07-03-2020 Non-smoker [facility] Start: 1945 Sex Assigned At Female [facility] Start: 04-30-2019 End: 08-29-2022 Alcohol intake Current drinker of alcohol (finding) [facility] Start: 12-18-2009 History SDOH Alcohol Comment rarely [facility] Start: 10-18-2020 End: 08-29-2022 Tobacco use panel [facility] National Score (1-10 0), lower number is lower risk Not on file [facility] Start: 01-24-2025 End: 03-07-2025 Sex Female (finding) [facility] Medical Equipment Procedure Code Equipment Code Equipment Original Text Equipment Identifier Dates Robot-assisted simple nephrectomy 45mm Vascular Reload FDA Start: 11-13-2022 Robot-assisted simple nephrectomy CLIP,HEMOLOSHAHANA GUZMAN FDA Start: 11-13-2022 Robot-assisted simple nephrectomy CLIP,HEMOLOCK LG THOMAS FDA Start: 11-13-2022 Robot-assisted simple nephrectomy CLIP,HEMOLOCK DANAY GUZMAN FDA Start: 11-13-2022 Robot-assisted simple nephrectomy CLIP,HEMOLOSHAHANA GUZMAN FDA Start: 11-13-2022 Robot-assisted simple nephrectomy CLIP,HEMOLOSHAHANA GUZMAN FDA Start: 11-13-2022 Robot-assisted simple nephrectomy CLIP,HEMOLOSHAHANA GUZMAN FDA Start: 11-13-2022 Robot-assisted simple nephrectomy DRESSING,SURGICEL 4x8 FDA Start: 11-13-2022 Robot-assisted simple nephrectomy 45mm Vascular Reload FDA Start: 11-13-2022 Robot-assisted simple nephrectomy CLIP,HEMOLOSHAHANA GUZMAN FDA Start: 11-13-2022 Robot-assisted simple nephrectomy CLIP,HEMOLOSHAHANA GUZMAN FDA Start: 11-13-2022 Robot-assisted simple nephrectomy CLIP,HEMOLOSHAHANA GUZMAN FDA Start: 11-13-2022 Robot-assisted simple nephrectomy CLIP,HEMOLOSHAHANA GUZMAN FDA Start: 11-13-2022 Robot-assisted simple nephrectomy CLIP,HEMOLOCK DANAY GUZMAN FDA Start: 11-13-2022 Robot-assisted simple nephrectomy CLIP,HEMOLOCK DANAY GUZMAN FDA Start: 11-13-2022 Robot-assisted simple nephrectomy DRESSING,SURGICEL 4x8 FDA Start: 11-13-2022 Robot-assisted simple nephrectomy 45mm Vascular Reload FDA Start: 11-13-2022 Robot-assisted simple nephrectomy CLIP,HEMOLOSHAHANA GUZMAN FDA Start: 11-13-2022 Robot-assisted simple nephrectomy CLIP,HEMOLOSHAHANA GUZMAN FDA Start: 11-13-2022 Robot-assisted simple nephrectomy CLIP,HEMOLOSHAHANA GUZMAN FDA Start: 11-13-2022 Robot-assisted simple nephrectomy CLIP,HEMOLOCK LG WECK FDA Start: 11-13-2022 Robot-assisted simple nephrectomy CLIP,HEMOLOCK LG WESLEYCK FDA Start: 11-13-2022 Robot-assisted simple nephrectomy CLIP,HEMOLOCK LG WECK FDA Start: 11-13-2022 Robot-assisted simple nephrectomy DRESSING,SURGICEL 4x8 FDA Start: 11-13-2022 Robot-assisted simple nephrectomy 45mm Vascular Reload FDA Start: 11-13-2022 Robot-assisted simple nephrectomy CLIP,HEMOLOCK LG THOMAS FDA Start: 11-13-2022 Robot-assisted simple nephrectomy CLIP,HEMOLOCK LG WESLEYCK FDA Start: 11-13-2022 Robot-assisted simple nephrectomy CLIP,HEMOLOCK LG THOMAS FDA Start: 11-13-2022 Robot-assisted simple nephrectomy CLIP,HEMOLOCK LG THOMAS FDA Start: 11-13-2022 Robot-assisted simple nephrectomy CLIP,HEMOLOCK DANAY GUZMAN FDA Start: 11-13-2022 Robot-assisted simple nephrectomy CLIP,HEMOLOCK LG THOMAS FDA Start: 11-13-2022 Robot-assisted simple nephrectomy DRESSING,SURGICEL 4x8 FDA Start: 11-13-2022 Robot-assisted simple nephrectomy 45mm Vascular Reload FDA Start: 11-13-2022 Robot-assisted simple nephrectomy CLIP,HEMOLOCK DANAY GUZMAN FDA Start: 11-13-2022 Robot-assisted simple nephrectomy CLIP,HEMOLOCK LG THOMAS FDA Start: 11-13-2022 Robot-assisted simple nephrectomy CLIP,HEMOLOCK DANAY GUZMAN FDA Start: 11-13-2022 Robot-assisted simple nephrectomy CLIP,HEMOLOCK LG THOMAS FDA Start: 11-13-2022 Robot-assisted simple nephrectomy CLIP,HEMOLOCK LG THOMAS FDA Start: 11-13-2022 Robot-assisted simple nephrectomy CLIP,HEMOLOCK LG THOMAS FDA Start: 11-13-2022 Robot-assisted simple nephrectomy DRESSING,SURGICEL 4x8 FDA Start: 11-13-2022 Robot-assisted simple nephrectomy 45mm Vascular Reload FDA Start: 11-13-2022 Robot-assisted simple nephrectomy CLIP,HEMOLOCK DANAY GUZMAN FDA Start: 11-13-2022 Robot-assisted simple nephrectomy CLIP,HEMOLOCK DANAY GUZMAN FDA Start: 11-13-2022 Robot-assisted simple nephrectomy CLIP,HEMOLOCK LG WESLEYCK FDA Start: 11-13-2022 Robot-assisted simple nephrectomy CLIP,HEMOLOCK LG WESLEYCK FDA Start: 11-13-2022 Robot-assisted simple nephrectomy CLIP,HEMOLOCK LG WECK FDA Start: 11-13-2022 Robot-assisted simple nephrectomy CLIP,HEMOLOCK LG WECK FDA Start: 11-13-2022 Robot-assisted simple nephrectomy DRESSING,SURGICEL 4x8 FDA Start: 11-13-2022 Robot-assisted simple nephrectomy 45mm Vascular Reload FDA Start: 11-13-2022 Robot-assisted simple nephrectomy CLIP,HEMOLOCK LG THOMAS FDA Start: 11-13-2022 Robot-assisted simple nephrectomy CLIP,HEMOLOCK LG WESLEYCK FDA Start: 11-13-2022 Robot-assisted simple nephrectomy CLIP,HEMOLOCK LG THOMAS FDA Start: 11-13-2022 Robot-assisted simple nephrectomy CLIP,HEMOLOSHAHANA GUZMAN FDA Start: 11-13-2022 Robot-assisted simple nephrectomy CLIP,HEMOLOCK LG THOMAS FDA Start: 11-13-2022 Robot-assisted simple nephrectomy CLIP,HEMOLOCK LG THOMAS FDA Start: 11-13-2022 Robot-assisted simple nephrectomy DRESSING,SURGICEL 4x8 FDA Start: 11-13-2022 Robot-assisted simple nephrectomy 45mm Vascular Reload FDA Start: 11-13-2022 Robot-assisted simple nephrectomy CLIP,HEMOLOCK LG THOMAS FDA Start: 11-13-2022 Robot-assisted simple nephrectomy CLIP,HEMOLOCK DANAY GUZMAN FDA Start: 11-13-2022 Robot-assisted simple nephrectomy CLIP,HEMOLOCK LG THOMAS FDA Start: 11-13-2022 Robot-assisted simple nephrectomy CLIP,HEMOLOCK LG THOMAS FDA Start: 11-13-2022 Robot-assisted simple nephrectomy CLIP,HEMOLOCK LG THOMAS FDA Start: 11-13-2022 Robot-assisted simple nephrectomy CLIP,HEMOLOCK LG THOMAS FDA Start: 11-13-2022 Robot-assisted simple nephrectomy DRESSING,SURGICEL 4x8 FDA Start: 11-13-2022 Robot-assisted simple nephrectomy 45mm Vascular Reload FDA Start: 11-13-2022 Robot-assisted simple nephrectomy CLIP,HEMOLOCK DANAY GUZMAN FDA Start: 11-13-2022 Robot-assisted simple nephrectomy CLIP,HEMOLOCK LG WESLEYCK FDA Start: 11-13-2022 Robot-assisted simple nephrectomy CLIP,HEMOLOCK LG WESLEYCK FDA Start: 11-13-2022 Robot-assisted simple nephrectomy CLIP,HEMOLOCK LG WESLEYCK FDA Start: 11-13-2022 Robot-assisted simple nephrectomy CLIP,HEMOLOCK LG WESLEYCK FDA Start: 11-13-2022 Robot-assisted simple nephrectomy CLIP,HEMOLOCK LG WESLEYCK FDA Start: 11-13-2022 Robot-assisted simple nephrectomy DRESSING,SURGICEL 4x8 FDA Start: 11-13-2022 Robot-assisted simple nephrectomy 45mm Vascular Reload FDA Start: 11-13-2022 Robot-assisted simple nephrectomy CLIP,HEMOLOCK LG THOMAS FDA Start: 11-13-2022 Robot-assisted simple nephrectomy CLIP,HEMOLOCK LG WESLEYCK FDA Start: 11-13-2022 Robot-assisted simple nephrectomy CLIP,HEMOLOSHAHANA GUZMAN FDA Start: 11-13-2022 Robot-assisted simple nephrectomy CLIP,HEMOLOCK DANAY GUZMAN FDA Start: 11-13-2022 Robot-assisted simple nephrectomy CLIP,HEMOLOCK LG THOMAS FDA Start: 11-13-2022 Robot-assisted simple nephrectomy CLIP,HEMOLOCK LG THOMAS FDA Start: 11-13-2022 Robot-assisted simple nephrectomy DRESSING,SURGICEL 4x8 FDA Start: 11-13-2022 Robot-assisted simple nephrectomy 45mm Vascular Reload FDA Start: 11-13-2022 Robot-assisted simple nephrectomy CLIP,HEMOLOCK DANAY GUZMAN FDA Start: 11-13-2022 Robot-assisted simple nephrectomy CLIP,HEMOLOCK DANAY GUZMAN FDA Start: 11-13-2022 Robot-assisted simple nephrectomy CLIP,HEMOLOCK LG THOMAS FDA Start: 11-13-2022 Robot-assisted simple nephrectomy CLIP,HEMOLOCK LG THOMAS FDA Start: 11-13-2022 Robot-assisted simple nephrectomy CLIP,HEMOLOCK DANAY GUZMAN FDA Start: 11-13-2022 Robot-assisted simple nephrectomy CLIP,HEMOLOCK LG THOMAS FDA Start: 11-13-2022 Robot-assisted simple nephrectomy DRESSING,SURGICEL 4x8 FDA Start: 11-13-2022 Robot-assisted simple nephrectomy 45mm Vascular Reload FDA Start: 11-13-2022 Robot-assisted simple nephrectomy CLIP,HEMOLOCK LG THOMAS FDA Start: 11-13-2022 Robot-assisted simple nephrectomy CLIP,HEMOLOCK LG WESLEYCK FDA Start: 11-13-2022 Robot-assisted simple nephrectomy CLIP,HEMOLOCK LG WESLEYCK FDA Start: 11-13-2022 Robot-assisted simple nephrectomy CLIP,HEMOLOCK LG WESLEYCK FDA Start: 11-13-2022 Robot-assisted simple nephrectomy CLIP,HEMOLOCK LG WESLEYCK FDA Start: 11-13-2022 Robot-assisted simple nephrectomy CLIP,HEMOLOCK LG WESLEYCK FDA Start: 11-13-2022 Robot-assisted simple nephrectomy DRESSING,SURGICEL 4x8 FDA Start: 11-13-2022 Robot-assisted simple nephrectomy 45mm Vascular Reload FDA Start: 11-13-2022 Robot-assisted simple nephrectomy CLIP,HEMOLOSHAHANA GUZMAN FDA Start: 11-13-2022 Robot-assisted simple nephrectomy CLIP,HEMOLOSHAHANA GUZMAN FDA Start: 11-13-2022 Robot-assisted simple nephrectomy CLIP,HEMOLOSHAHANA GUZMAN FDA Start: 11-13-2022 Robot-assisted simple nephrectomy CLIP,HEMOLOCK DANAY GUZMAN FDA Start: 11-13-2022 Robot-assisted simple nephrectomy CLIP,HEMOLOCK DANAY GUZMAN FDA Start: 11-13-2022 Robot-assisted simple nephrectomy CLIP,HEMOLOSHAHANA GUZMAN FDA Start: 11-13-2022 Robot-assisted simple nephrectomy DRESSING,SURGICEL 4x8 FDA Start: 11-13-2022 Robot-assisted simple nephrectomy 45mm Vascular Reload FDA Start: 11-13-2022 Robot-assisted simple nephrectomy CLIP,HEMOLOCK DANAY GUZMAN FDA Start: 11-13-2022 Robot-assisted simple nephrectomy CLIP,HEMOLOCK LG THOMAS FDA Start: 11-13-2022 Robot-assisted simple nephrectomy CLIP,HEMOLOCK DANAY GUZMAN FDA Start: 11-13-2022 Robot-assisted simple nephrectomy CLIP,HEMOLOCK DANAY GUZMAN FDA Start: 11-13-2022 Robot-assisted simple nephrectomy CLIP,HEMOLOCK LG THOMAS FDA Start: 11-13-2022 Robot-assisted simple nephrectomy CLIP,HEMOLOCK DANAY GUZMAN FDA Start: 11-13-2022 Robot-assisted simple nephrectomy DRESSING,SURGICEL 4x8 FDA Start: 11-13-2022 Robot-assisted simple nephrectomy 45mm Vascular Reload FDA Start: 11-13-2022 Robot-assisted simple nephrectomy CLIP,HEMOLOCK LG WESLEYCK FDA Start: 11-13-2022 Robot-assisted simple nephrectomy CLIP,HEMOLOCK LG WESLEYCK FDA Start: 11-13-2022 Robot-assisted simple nephrectomy CLIP,HEMOLOCK LG WECK FDA Start: 11-13-2022 Robot-assisted simple nephrectomy CLIP,HEMOLOCK LG WESLEYCK FDA Start: 11-13-2022 Robot-assisted simple nephrectomy CLIP,HEMOLOCK LG WESLEYCK FDA Start: 11-13-2022 Robot-assisted simple nephrectomy CLIP,HEMOLOCK LG WESLEYCK FDA Start: 11-13-2022 Robot-assisted simple nephrectomy DRESSING,SURGICEL 4x8 FDA Start: 11-13-2022 Robot-assisted simple nephrectomy 45mm Vascular Reload FDA Start: 11-13-2022 Robot-assisted simple nephrectomy CLIP,HEMOLOSHAHANA GUZMAN FDA Start: 11-13-2022 Robot-assisted simple nephrectomy CLIP,HEMOLOSHAHANA GUZMAN FDA Start: 11-13-2022 Robot-assisted simple nephrectomy CLIP,HEMOLOCK DANAY GUZMAN FDA Start: 11-13-2022 Robot-assisted simple nephrectomy CLIP,HEMOLOCK DANAY GUZMAN FDA Start: 11-13-2022 Robot-assisted simple nephrectomy CLIP,HEMOLOCK DANAY GUZMAN FDA Start: 11-13-2022 Robot-assisted simple nephrectomy CLIP,HEMOLOCK LG THOMAS FDA Start: 11-13-2022 Robot-assisted simple nephrectomy DRESSING,SURGICEL 4x8 FDA Start: 11-13-2022 Robot-assisted simple nephrectomy 45mm Vascular Reload FDA Start: 11-13-2022 Robot-assisted simple nephrectomy CLIP,HEMOLOCK LG THOMAS FDA Start: 11-13-2022 Robot-assisted simple nephrectomy CLIP,HEMOLOCK LG THOMAS FDA Start: 11-13-2022 Robot-assisted simple nephrectomy CLIP,HEMOLOCK DANAY GUZMAN FDA Start: 11-13-2022 Robot-assisted simple nephrectomy CLIP,HEMOLOCK LG THOMAS FDA Start: 11-13-2022 Robot-assisted simple nephrectomy CLIP,HEMOLOCK LG THOMAS FDA Start: 11-13-2022 Robot-assisted simple nephrectomy CLIP,HEMOLOCK DANAY GUZMAN FDA Start: 11-13-2022 Robot-assisted simple nephrectomy DRESSING,SURGICEL 4x8 FDA Start: 11-13-2022 Robot-assisted simple nephrectomy 45mm Vascular Reload FDA Start: 11-13-2022 Robot-assisted simple nephrectomy CLIP,HEMOLOCK LG WESLEYCK FDA Start: 11-13-2022 Robot-assisted simple nephrectomy CLIP,HEMOLOCK LG WECK FDA Start: 11-13-2022 Robot-assisted simple nephrectomy CLIP,HEMOLOCK LG WESLEYCK FDA Start: 11-13-2022 Robot-assisted simple nephrectomy CLIP,HEMOLOCK LG WESLEYCK FDA Start: 11-13-2022 Robot-assisted simple nephrectomy CLIP,HEMOLOCK LG WESLEYCK FDA Start: 11-13-2022 Robot-assisted simple nephrectomy CLIP,HEMOLOCK LG THOMAS FDA Start: 11-13-2022 Robot-assisted simple nephrectomy DRESSING,SURGICEL 4x8 FDA Start: 11-13-2022 Robot-assisted simple nephrectomy 45mm Vascular Reload FDA Start: 11-13-2022 Robot-assisted simple nephrectomy CLIP,HEMOLOCK DANAY GUZMAN FDA Start: 11-13-2022 Robot-assisted simple nephrectomy CLIP,HEMOLOCK DANAY GUZMAN FDA Start: 11-13-2022 Robot-assisted simple nephrectomy CLIP,HEMOLOCK DANAY GUZMAN FDA Start: 11-13-2022 Robot-assisted simple nephrectomy CLIP,HEMOLOCK DANAY GUZMAN FDA Start: 11-13-2022 Robot-assisted simple nephrectomy CLIP,HEMOLOCK DANAY GUZMAN FDA Start: 11-13-2022 Robot-assisted simple nephrectomy CLIP,HEMOLOCK DANAY GUZMAN FDA Start: 11-13-2022 Robot-assisted simple nephrectomy DRESSING,SURGICEL 4x8 FDA Start: 11-13-2022 Robot-assisted simple nephrectomy 45mm Vascular Reload FDA Start: 11-13-2022 Robot-assisted simple nephrectomy CLIP,HEMOLOCK LG THOMAS FDA Start: 11-13-2022 Robot-assisted simple nephrectomy CLIP,HEMOLOCK DANAY GUZMAN FDA Start: 11-13-2022 Robot-assisted simple nephrectomy CLIP,HEMOLOCK LG THOMAS FDA Start: 11-13-2022 Robot-assisted simple nephrectomy CLIP,HEMOLOCK DANAY GUZMAN FDA Start: 11-13-2022 Robot-assisted simple nephrectomy CLIP,HEMOLOCK DANAY GUZMAN FDA Start: 11-13-2022 Robot-assisted simple nephrectomy CLIP,HEMOLOCK LG WECK FDA Start: 11-13-2022 Robot-assisted simple nephrectomy DRESSING,SURGICEL 4x8 FDA Start: 11-13-2022 Robot-assisted simple nephrectomy 45mm Vascular Reload FDA Start: 11-13-2022 Robot-assisted simple nephrectomy CLIP,HEMOLOCK LG WESLEYCK FDA Start: 11-13-2022 Robot-assisted simple nephrectomy CLIP,HEMOLOCK LG WESLEYCK FDA Start: 11-13-2022 Robot-assisted simple nephrectomy CLIP,HEMOLOCK LG WESLEYCK FDA Start: 11-13-2022 Robot-assisted simple nephrectomy CLIP,HEMOLOCK LG WESLEYCK FDA Start: 11-13-2022 Robot-assisted simple nephrectomy CLIP,HEMOLOCK DANAY GUZMAN FDA Start: 11-13-2022 Robot-assisted simple nephrectomy CLIP,HEMOLOCK DANAY GUZMAN FDA Start: 11-13-2022 Robot-assisted simple nephrectomy DRESSING,SURGICEL 4x8 FDA Start: 11-13-2022 Robot-assisted simple nephrectomy 45mm Vascular Reload FDA Start: 11-13-2022 Robot-assisted simple nephrectomy CLIP,HEMOLOCK DANAY GUZMAN FDA Start: 11-13-2022 Robot-assisted simple nephrectomy CLIP,HEMOLOCK DANAY GUZMAN FDA Start: 11-13-2022 Robot-assisted simple nephrectomy CLIP,HEMOLOCK DANAY GUZMAN FDA Start: 11-13-2022 Robot-assisted simple nephrectomy CLIP,HEMOLOCK DANAY GUZMAN FDA Start: 11-13-2022 Robot-assisted simple nephrectomy CLIP,HEMOLOSHAHANA GUZMAN FDA Start: 11-13-2022 Robot-assisted simple nephrectomy CLIP,HEMOLOCK DANAY GUZMAN FDA Start: 11-13-2022 Robot-assisted simple nephrectomy DRESSING,SURGICEL 4x8 FDA Start: 11-13-2022 Robot-assisted simple nephrectomy 45mm Vascular Reload FDA Start: 11-13-2022 Robot-assisted simple nephrectomy CLIP,HEMOLOCK DANAY GUZMAN FDA Start: 11-13-2022 Robot-assisted simple nephrectomy CLIP,HEMOLOCK DANAY GUZMAN FDA Start: 11-13-2022 Robot-assisted simple nephrectomy CLIP,HEMOLOCK DANAY GUZMAN FDA Start: 11-13-2022 Robot-assisted simple nephrectomy CLIP,HEMOLOSHAHANA GUZMAN FDA Start: 11-13-2022 Robot-assisted simple nephrectomy CLIP,HEMOLOCK LG THOMAS FDA Start: 11-13-2022 Robot-assisted simple nephrectomy CLIP,HEMOLOSHAHANA LG THOMAS FDA Start: 11-13-2022 Robot-assisted simple nephrectomy DRESSING,SURGICEL 4x8 FDA Start: 11-13-2022 Robot-assisted simple nephrectomy 45mm Vascular [employer]oad FDA Start: 11-13-2022 Robot-assisted simple nephrectomy CLIP,HEMBRIANSHAHANA DANAY GUZMAN FDA Start: 11-13-2022 Robot-assisted simple nephrectomy CLIP,HEMOLOSHAHANA LG THOMAS FDA Start: 11-13-2022 Robot-assisted simple nephrectomy CLIP,HEMOLOSHAHANA LG THOMAS FDA Start: 11-13-2022 Robot-assisted simple nephrectomy CLIP,HEMOLOSHAHANA LG THOMAS FDA Start: 11-13-2022 Robot-assisted simple nephrectomy CLIP,HEMBRIANSHAHANA DANAY GUZMAN FDA Start: 11-13-2022 Robot-assisted simple nephrectomy CLIP,HEMBRIANSHAHANA DANAY GUZMAN FDA Start: 11-13-2022 Robot-assisted simple nephrectomy DRESSING,SURGICEL 4x8 FDA Start: 11-13-2022 TEST BLOOD SUGAR S once daily Start: 08-26-2011 Comment on above: TEST BLOOD SUGARS on ce daily Goals Date Patient Goal Desired Activity /State Functional Status Date Assessment Result Facility 01-19-2023 Functional status Ambulates [facility] Work Phone: 01-18-2023 Functional status Small Base Quad Cane [facility] Work Phone: 11-15-2022 Functional status Ambulates [facility] Work Phone: Mental Status Date Assessment Result Facility 12-01-2024 Cognitive function Voice/Name [facility] Work Phone: 01-19-2023 Cognitive function Voice/Name [facility] Work Phone: 01-17-2023 Cognitive function Level Of Cons ciousness Awake;Alert;Appropriate;Follow s Commands [facility] Work Phone: 11-15-2022 Cognitive function Voice/Name [facility] Work Phone: Clinical Notes 04-05-2021 to 03-04-2025 Note Date & Type Note Facility 01-11-2025 Radiology Diagnostic study note [facility] Imaging Services [address] [place] [address] Chest PA and Lateral MR#: [id number] Acct: [id number] Name: EVERTON BEATTY Rep #: [id number] : 1945 F 79 From: Leah Gutierrez MD PCP: Dr. Marta Koehler MD Status: RE G CLI Study:Chest PA and Lateral Date of Exam: 01/11/25 Exam# [id number] Ordering Dr: Carlita Bowman NP TRUCK MECHANIC APPRENTICE-Jason EXAM: XR Chest, 2 Views CLINICAL INDICATION: TECHNIQUE: Frontal and lateral views of the chest. COMPARISON: No relevant prior studies available. FINDINGS: LUNGS AND PLEURAL SPACES: Unremarkable. No consolidation. No pneumothorax. HEART: Unremarkable. No cardiomegaly. MEDIASTINUM: Unremarkable. Normal mediastinal contour. BONES/JOINTS: Unremarkable. No acute fracture. RAD/Chest PA and Lateral IMPRESSION: No acute cardiopulmonary process. [facility] CC: [facility] FLORA TRUCK MECHANIC APPRENTICE-C Colby; Dr. Marta Koehler MD ~ Inventory Control Specialist: Signed [facility] 12-02-2024 Evaluation note Diagnosis Onset Date Resolution Nausea & vomiting chronic December 02, 2024 12:26pm [facility] Work Phone: 1(151) 613-774711-18-2024 Evaluation note* Diagnosis Onset Date Resolution Status Admit Date Constipation acute September 10:57am GERD (gastroesophageal reflu x disease) acute September 27, 2 024 10:57am Pancreatic insufficiency acute September 27, 2024 10:57am Nausea & vomiting chronic Novembe 2023 10:57am Nausea & vomiting chronic December 02, 2024 12:26pm [facility] Work Phone: 1(211) 227-453303-12-[address] Lacey [facility] January 19, 2023 11:04am Note Date/Time January 19, 2023 11: 04am [facility] Medical Records Department [address] [place] [address] Instructions for Home/Discharge Instructions 01/19/23 1103 MR#: [id number] Acct: [id number] Name: EVERTON BEATTY Rep #:[id number] : 1945 77 From: Miryam Lacey MD PCP: Dr. Marta Koehler MD Status:AD M IN Discharge Instructions Diet Discharge Diet: Low fat / Low cholesterol Activity Discharge Activity: Return to Normal Activity Weight Bearing Status: Weight bearing as tolerated Dressing / Incision Call your doctor if you observe: Fever of 101 or Higher, Shortness of breath, Dizziness, Swelling in the ankles, Chest pain and Increased palpitations (irregular heartbeat) Follow Up Care Test Results: Test results from this visit will be discussed in further detail at your follow- up appointment, if applicable. Discharge Plan Admission Admit Date/Time: 01/17/23 22:20 Primary Reason for Your Visit: hyperkalemia Attending Provider: Miryam Lacey Primary Care Provider: Marta Koehler Consulting Providers: Helen Torre ; Brandi Castellon Instructions Patient Instructions: Hyperkalemia Ch Dc, ED Hyperkalemia Discharge Orders/Prescriptions Prescriptions: New amlodipine 5 mg Tablet 5 mg PO DAILY Qty: 30 2RF Continued omeprazole 40 mg capsule,delayed release(DR/EC) 40 mg PO DAILY levothyroxine 175 MCG tablet 175 mcg PO SUTUWETHFRSA cetirizine 10 MG tablet 10 mg PO DAILY calcium carbonate 600 MG tablet 600 mg PO DAILY potassium chloride 20 MEQ tablet,ER particles/crystals 20 meq PO LUNCH montelukast 10 MG tablet 10 mg PO DAILY pravastatin 20 MG tablet 20 mg PO QHS multivitamin with iron 1 EACH tablet 1 ea PO DAILY sitagliptin phosphate 100 MG tablet 100 mg PO DAILY insulin glargine 100 UNITS/ML insulin pen 35 units subcut 1000 levocetirizine 5 MG tablet 5 mg PO DAILY mometasone-formoterol 8.8 GM HFA aerosol inhaler 2 puff IH DAILY coenzyme [id number] 1 EACH capsule 1 ea PO DAILY furosemide 40 mg tablet 40 mg PO DAILY PRN (Reason: WATER PILL) albuterol sulfate 6.7 GM HFA aerosol inhaler 6.7 gm IH Q4H PRN PRN (Reason: Wheezing) carvedilol phosphate 20 MG capsule, ER multiphase 24 hr 20 mg PO DAILY acetaminophen 650 mg Tablet 650 mg PO BID tramadol 50 mg tablet 50 mg PO BID Label Comments: take 1 tablet by mouth twice a day melatonin 10 mg Capsule 10 mg PO DAILY Trintellix 10 mg tablet 10 mg PO DAILY Label Comments: take 1 tablet by mouth once daily Miralax 1 dose OTHER DAILY oxycodone-acetaminophen 5-325 mg tablet 1 tab PO Q6H PRN (Reason: pain) 7 Days Qty: 14 0RF docusate sodium [Colace] 100 mg capsule 100 mg PO BID Qty: 20 0RF Creon 36,000-114,000- 180,000 unit capsule,delayed release(DR/EC) See Rx Instructions PO .COMPLEX Qty: 320 0RF Rx Instructions: take 1-2 with snacks and 2-3 with meals scopolamine base 1 mg over 3 days patch 3 day 1 patch transdermal Q3D PRN (Reason: nausea and vomiting) Qty: 10 0RF promethazine 25 mg suppository 25 mg ME Q6H PRN (Reason: nausea and vomiting) Qty: 12 2RF ondansetron HCl 4 mg tablet 4 mg PO Q6H Qty: 60 2RF Discontinued amlodipine-benazepril 5 MG-20 MG capsule 1 tab PO DAILY Referrals / Follow Up: Helen Torre DO [Med Staff - Consulting] - Within 1 Week Marta Koehler MD [Primary Care Provider] - Within 2 Weeks Disposition Disposition (needs filled in before D/C Order can be placed): Home, Self Care 01/19/23 1104<Electronically signed by Miryam Lacey MD>Miryam Lacey MD CC: Dr. Brandi Castellon MD; Dr. Helen Torre DO; Dr. Marta Koehler MD ~ Signed [facility] Work Phone: 1(431) 366-544003-12-[address] Lacey [facility] January 19, 2023 2:11pm Note Date/Time January 19, 2023 11: 04am [facility] Medical Records Department [address] [place] [address] Discharge Summary 01/19/23 1104 MR#: [id number] Acct: [id number] Name: EVERTON BEATTY Rep #:[id number] : 1945 77 From: Miryam Lacey MD PCP: Dr. Marta Koehler MD Status:AD M IN [facility] Prov[facility] Date of Admission: 01/17/23 Date of Discharge: 01/19/23 Primary Care Physician: Dr. Marta Koehler MD Consultations 01/17/23 22:53 Consult: Nephrology Routine Consulting Provider: Helen Torre Reason for Consult: MICHAEL, worsening fx since Nephrectomy for CA EMERGENT Consult: No MD Notified: Yes Date Notified: 01/17/23 Time Notified: : Method of Notification: Text Reason For Visit: HYPERKALEMIA, MICHAEL, JUNCTIONAL RHYTHM Diagnosis Discharge Diagnosis (1) Acute kidney injury: Status: Acute Code(s): N17.9 - Acute kidney failure, unspecified (2) Acute hyperkalemia: Status: Acute Code(s): E87.5 - Hyperkalemia Plan #Hyperkalemia * improving. Potassium down to 5.7 this morning. It was 6 on admission. * Will give Kayexalate. Hold all nephrotoxic medications. * Nephrology on board. * #MICHAEL on CKD * Creatinine is 2.21. Was 2.42 on admission. Continue gentle hydration with IV fluids and trend. * #History of left renal carcinoma s/p left nephrectomy * Now has solitary kidney. Will monitor. * #Type 2 diabetes mellitus: * REESE inhibitor discontinued on account of elevated potassium. * Insulin sliding scale. Accu-Cheks ACHS. * Also on sitagliptin and Lantus 35 units daily. #Pancreatic insufficiency: On Creon #Hypothyroidism: * On Synthroid * TSH was low and normal free T4; Synthroid decreased to 150mcg daily. * to have follow up TFTs in 4-6 weeks #Hypertension: On carvedilol; this was held due to bradycardia #Bradycardia: had bradycardia in the ED with HR of 45. coreg on hold. Will monitor. #Hyperlipidemia: On statin #GERD: On PPI #Asthma: on breathing treatment with bronchodilators. On montelukast #KARMA; on BIPAP DVT prophylaxis: heparin Medications at Discharge Home Medications calcium carbonate 600 mg calcium (1,500 mg) tablet 600 mg PO DAILY SUPPLEMENT 02/05/18 cetirizine 10 mg tablet 10 mg PO DAILY Check with primary doctor 02/05/18 coenzyme Q10 100 mg-vitamin E 10 unit capsule 1 ea PO DAILY Check with primary doctor 02/05/18 insulin glargine 100 unit/mL (3 mL) subcutaneous pen 35 units subcut 1000 diabetes 02/05/18 levocetirizine 5 mg tablet 5 mg PO DAILY Check with primary doctor 02/05/18 levothyroxine 175 mcg tablet 175 mcg PO SUTUWETHFRSA THYROID 02/05/18 mometasone-formoterol HFA 200 mcg-5 mcg/actuation aerosol inhaler 2 puff IH DAILY ASTHMA 02/05/18 montelukast 10 mg tablet 10 mg PO DAILY Check with primary doctor 02/05/18 multivitamin with iron 1 ea PO DAILY SUPPLEMENT 02/05/18 potassium chloride 20 mEq tablet,extended release(part/cryst) 20 meq PO LUNCH Check with primary doctor 02/05/18 pravastatin 20 mg tablet 20 mg PO QHS CHOLESTEROL 02/05/18 sitagliptin phosphate 100 mg tablet 100 mg PO DAILY DIABETES 02/05/18 albuterol sulfate 90 mcg/actuation aerosol inhaler 6.7 gm IH Q4H PRN PRN Wheezing 12/08/19 carvedilol phosphate 20 mg capsule,[id number] multiphase 20 mg PO DAILY Check with primary doctor 12/08/19 furosemide 40 mg tablet 40 mg PO DAILY PRN WATER PILL 06/26/20 omeprazole 40 mg capsule,delayed release 40 mg PO DAILY Check with primary doctor 06/26/20 Miralax 1 dose OTHER DAILY Check with primary doctor 10/30/22 acetaminophen 650 mg tablet 650 mg PO BID Check with primary doctor 10/30/22 melatonin 10 mg capsule 10 mg PO DAILY Check with primary doctor 10/30/22 tramadol 50 mg tablet 50 mg PO BID Check with primary doctor 10/30/22 vortioxetine 10 mg tablet (Trintellix) 10 mg PO DAILY Check with primary doctor 10/30/22 docusate sodium 100 mg capsule (Colace) 100 mg PO BID #20 caps 11/13/22 oxycodone-acetaminophen 5 mg-325 mg tablet 1 tab PO Q6H PRN pain 7 days #14 tabs11/13/22 [id number]-[id number] 36,000-114,000-180,000 unit capsule,delay rel (Creon) See Rx Instructions PO .COMPLEX #320 caps 12/25/22 scopolamine base 1 mg over 3 days transdermal patch 1 patch transdermal Q3D PRN nausea and vomiting #10 ea 01/06/23 ondansetron HCl 4 mg tablet 4 mg PO Q6H #60 tabs 01/09/23 promethazine 25 mg rectal suppository 25 mg ME Q6H PRN nausea and vomiting #12 ea 01/09/23 amlodipine 5 mg tablet 5 mg PO DAILY #30 tabs 01/19/23 cefdinir 300 mg capsule 300 mg PO BID #10 caps 01/19/23 Hospital Course Operations None Procedures None Summary of Care Provided Minutes Spent on Discharge: 45 Hospital Course: Patient is a 77-year-old female with past medical history as outlined was admitted through the ED on account of abnormal labs. She had can see her PCP with nausea and decreased urine output the day before admission and labs done showed potassium of 5.5 with elevated creatinine. She was therefore called by her PCP to come into the ED. When she came into the ED repeat potassium was 5.7and a creatinine had gone up to 2.2. She had a history of renal cell carcinoma and is s/p nephrectomy. She was admitted and managed for hyperkalemia and MICHAEL on CKD. She was hydrated with IV fluids. She was also given Kayexalate. Nephrology reviewed her. She had an ultrasound which showed normal right kidneyand s/p left nephrectomy. Her creatinine trended downwards and hyperkalemia resolved. She remained stable and was discharged home on 01/19/2023. She is follow-up with her primary care doctor and with nephrology. Of note her REESE inhibitor was discontinued on account of hyperkalemia. Patient seen and examined prior to discharge. She felt well and had no active complaints. Review of systems otherwise negative. Labs and vitals reviewed. Medication reviewed and reconciled. Physical Exam Const alert, oriented x3 and no apparent distress Constitutional Narrative: obese General Appearance: cooperative, comfortable and well kempt Orientation / Consciousness: awake Exam Limitations: no limitations HEENT normocephalic, head/scalp atraumatic, hearing grossly normal bilaterally and moist oral mucous membranes Mouth: oral and palatal mucosa normal Eyes PERRL, EOMs intact bilaterally and conjunctivae normal Neck no lymphadenopathy, supple and no JVD Lymph Lymphatic: no lymphadenopathy noted Resp normal respiratory effort, normal air movement and clear to auscultation bilaterally Cardio regular rate, regular rhythm, S1 normal heart sound, S2 normal heart sound and no murmurs GI normal to inspection, nondistended, normoactive bowel sounds, soft to palpation,non-tender and non-distended Extremity normal to inspection, full ROM, normal capillary refill, no clubbing, cyanosis or edema and no calf tenderness Skin no rashes or lesions noted General Skin Exam: no breakdown Neuro oriented x3, CN's II-XII intact bilaterally, moves all extremities, no focal motor deficits and no sensory deficits noted Sensorium / Orientation: awake and alert Motor Exam: strength 5/5 throughout Psych thought process normal Appearance: appropriate Medical Records Data Medical Nutrition Assessment Dietitian: Malnutrition Criteria Met Start: 01/18/23 12:37 Freq: Status: Active Protocol: Document 01/18/23 12:37 (Rec: 01/18/23 12:37 [id number]) Nutrition Malnutrition Evidence of Malnutrition Exists Yes Malnutrition (severe): Chronic Evidenced By Suboptimal Energy Intake ( Severe),Weight Loss (Severe) Clinical Problem Chronic Disease or Condition Related Malnutrition Etiology chronic severe malnutrition related to inadequate energy intake w/ increased energy needs d/t renal cell carcinoma Signs/Symptoms as evidenced by unintentional 105#/31% wt loss < 1 year; estimated PO intake meeting < 75% of estimated energy needs> 3 months Status Active Problem Recommendation Dietitian Recommendations/Changes Will adjust diet to cardiac, 1800 calorie controlled, potassium restricted; okay to offer Glucerna 120mL TID if PO intake is poor at meals. Will monitor renal labs and PO intake and adjust diet as indicated. Weight / BMI Weight Weight: 234 lb 12.677 oz Body Mass Index (BMI) 41.5 ABG / Lab / Microbiology Data Result Diagrams: 01/18/23 07:26 01/19/23 05:20 Laboratory: Laboratory Results - last 24 hr 01/18/23 12:53: POC Glucose 167 H 01/18/23 17:12: POC Glucose 143 H 01/18/23 21:28: POC Glucose 156 H 01/19/23 05:20: Sodium 143, Potassium 4.7, Chloride 113 H, Carbon Dioxide 23.0, Anion Gap 7, BUN 24 H, Creatinine 1.69 H, Estim Creat Clear Calc 23.43, Est GFR (MDRD) Af Amer 38 L, Est GFR (MDRD) Non-Af 31 L, BUN/Creatinine Ratio 14.2, Glucose 71 L, Calcium 8.5, Iron 96, Ferritin 27, Total Bilirubin 0.60, AST 21, ALT 21, Alkaline Phosphatase 56, Total Protein 5.5 L, Albumin 2.7 L, Globulin 2.8, Albumin/Globulin Ratio 1.0 01/19/23 06:36: POC Glucose 82 D/C Instructions Discharge Diet: Low fat / Low cholesterol Discharge Activity: Return to Normal Activity Weight Bearing Status: Weight bearing as tolerated Call your doctor if you observe: Fever of 101 or Higher, Shortness of breath, Dizziness, Swelling in the ankles, Chest pain and Increased palpitations (irregular heartbeat) Meaningful Use Info Meaningful Use Diagnoses (Choose all that apply): None applicable Discharge Plan Admission Admit Date/Time: 01/17/23 22:20 Primary Reason for Your Visit: hyperkalemia Attending Provider: Miryam Lacey Primary Care Provider: Marta Koehler Consulting Providers: Helen Torre ; Brandi Castellon Instructions Patient Instructions: Hyperkalemia Ch Dc, ED Hyperkalemia Discharge Orders/Prescriptions Prescriptions: New amlodipine 5 mg Tablet 5 mg PO DAILY Qty: 30 2RF cefdinir 300 mg capsule 300 mg PO BID Qty: 10 0RF Continued omeprazole 40 mg capsule,delayed release(DR/EC) 40 mg PO DAILY levothyroxine 175 MCG tablet 175 mcg PO SUTUWETHFRSA cetirizine 10 MG tablet 10 mg PO DAILY calcium carbonate 600 MG tablet 600 mg PO DAILY potassium chloride 20 MEQ tablet,ER particles/crystals 20 meq PO LUNCH montelukast 10 MG tablet 10 mg PO DAILY pravastatin 20 MG tablet 20 mg PO QHS multivitamin with iron 1 EACH tablet 1 ea PO DAILY sitagliptin phosphate 100 MG tablet 100 mg PO DAILY insulin glargine 100 UNITS/ML insulin pen 35 units subcut 1000 levocetirizine 5 MG tablet 5 mg PO DAILY mometasone-formoterol 8.8 GM HFA aerosol inhaler 2 puff IH DAILY coenzyme Y40-elbeypl E 1 EACH capsule 1 ea PO DAILY furosemide 40 mg tablet 40 mg PO DAILY PRN (Reason: WATER PILL) albuterol sulfate 6.7 GM HFA aerosol inhaler 6.7 gm IH Q4H PRN PRN (Reason: Wheezing) carvedilol phosphate 20 MG capsule, ER multiphase 24 hr 20 mg PO DAILY acetaminophen 650 mg Tablet 650 mg PO BID tramadol 50 mg tablet 50 mg PO BID Label Comments: take 1 tablet by mouth twice a day melatonin 10 mg Capsule 10 mg PO DAILY Trintellix 10 mg tablet 10 mg PO DAILY Label Comments: take 1 tablet by mouth once daily Miralax 1 dose OTHER DAILY oxycodone-acetaminophen 5-325 mg tablet 1 tab PO Q6H PRN (Reason: pain) 7 Days Qty: 14 0RF docusate sodium [Colace] 100 mg capsule 100 mg PO BID Qty: 20 0RF Creon 36,000-114,000- 180,000 unit capsule,delayed release(DR/EC) See Rx Instructions PO .COMPLEX Qty: 320 0RF Rx Instructions: take 1-2 with snacks and 2-3 with meals scopolamine base 1 mg over 3 days patch 3 day 1 patch transdermal Q3D PRN (Reason: nausea and vomiting) Qty: 10 0RF promethazine 25 mg suppository 25 mg ME Q6H PRN (Reason: nausea and vomiting) Qty: 12 2RF ondansetron HCl 4 mg tablet 4 mg PO Q6H Qty: 60 2RF Discontinued amlodipine-benazepril 5 MG-20 MG capsule 1 tab PO DAILY Referrals / Follow Up: Helen Torre DO [Med Staff - Consulting] - Within 1 Week Marta Koehler MD [Primary Care Provider] - Within 2 Weeks Disposition Disposition (needs filled in before D/C Order can be placed): Home, Self Care Charges/Coding Visit Charges Inpatient E&M: 96854 Disch Hosp >30min 01/19/23 1411 <Electronically signed by Miryam Lacey MD> Cosigner Signature (if applicable): CC: Dr. Marta Koehler MD; Dr. Miryam Lacey MD~ Signed [facility] Work Phone: 1(336) 269-339903-11-[address] Lacey [facility] January 18, 2023 2:33pm Note Date/Time January 18, 2023 12: 20pm [facility] Medical Records Department [address] [place] [address] [place] [address] Progress Note 01/18/23 1213 MR#: [id number] Acct: [id number] Name: EVERTON BEATTY Rep #:[id number] : 1945 77 From: Miryam Lacey MD PCP: Dr. Marta Koehler MD Status:AD M IN Location: [place] [address] Subjective Subjective Patient seen and examined. She had no active complaints today but says she was not able to get enough sleep because her bed is uncomfortable. Review of systems otherwise negative. She has remained hemodynamically stable. Potassiumis trended down to 5.3 this morning. Objective Data Objective Data Vital Signs: Vital Signs Temp Pulse Resp BP Pulse Ox O2 Del Method 98.3 F 61 16 157/43 H 98 Room Air 01/18/23 09:38 01/18/23 09:38 01/18/23 09:38 01/18/23 09:38 01/18/23 09:38 01/18/23 09:38 Oxygen Delivery Method Room Air Weight: 226 lb 13.69 oz Body Mass Index (BMI) 40.1 Intake & Output: Intake and Output for Last 24 Hours 01/16/23 01/17/23 01/18/23 23:59 23:59 23:59 Intake Total 2239 / 2240 Output Total 150 / 150 Balance 2089 Lab / Micro Data Result Diagrams: 01/18/23 07:26 01/18/23 07:26 Labs: Laboratory Results - last 24 hr 01/17/23 21:10: WBC 7.3, RBC 3.41 L, Hgb 9.8 L, Hct 31.2 L, MCV 91.5, MCH 28.7, MCHC 31.4 L, RDW Std Deviation 45.8 H, RDW Coeff of Za 13.5, Plt Count 187, MPV11.2, Immature Gran % (Auto) 0.100, Neut % (Auto) 61.1, Lymph % (Auto) 21.5, Iron % (Auto) 9.0, Eos % (Auto) 7.6 H, Baso % (Auto) 0.7, Absolute Neuts (auto) 4.4, Absolute Lymphs (auto) 1.56, Nucleated RBC % 0 01/17/23 21:10: Phosphorus 3.3, Magnesium 2.2 01/17/23 21:10: Sodium 138, Potassium 6.0 H*, Chloride 109 H, Carbon Dioxide 23.0, Anion Gap 6, BUN 35 H, Creatinine 2.42 H, Estim Creat Clear Calc 16.36, Est GFR (MDRD) Af Amer 25 L, Est GFR (MDRD) Non-Af 21 L, BUN/Creatinine Ratio 14.5, Glucose 141 H, Calcium 9.1 01/17/23 21:30: POC Glucose 135 H 01/18/23 03:40: Sodium 141, Potassium 5.3 H, Chloride 112 H, Carbon Dioxide 23.0, Anion Gap 6, BUN 34 H, Creatinine 2.20 H, Estim Creat Clear Calc 18.00, Est GFR (MDRD) Af Amer 28 L, Est GFR (MDRD) Non-Af 23 L, BUN/Creatinine Ratio 15.5, Glucose 46 L, Calcium 9.1 01/18/23 05:31: Ur Random Sodium 106, Urine Creatinine 129.00 01/18/23 06:35: POC Glucose 85 01/18/23 07:26: WBC 5.6, RBC 3.32 L, Hgb 9.6 L, Hct 30.5 L, MCV 91.9, MCH 28.9, MCHC 31.5 L, RDW Std Deviation 47.7 H, RDW Coeff of Za 14.0, Plt Count 161, MPV11.4, Immature Gran % (Auto) 0.200, Neut % (Auto) 59.0, Lymph % (Auto) 23.0, Iron % (Auto) 9.6, Eos % (Auto) 7.3 H, Baso % (Auto) 0.9, Absolute Neuts (auto) 3.3, Absolute Lymphs (auto) 1.29, Nucleated RBC % 0 01/18/23 07:26: Sodium 138, Potassium 5.7 H, Chloride 109 H, Carbon Dioxide 23.0, Anion Gap 6, BUN 33 H, Creatinine 2.21 H, Estim Creat Clear Calc 17.91, Est GFR (MDRD) Af Amer 28 L, Est GFR (MDRD) Non-Af 23 L, BUN/Creatinine Ratio 14.9, Glucose 140 H, Calcium 9.4, Total Bilirubin 0.50, AST 14 L, ALT 19, Alkaline Phosphatase 56, Total Protein 5.6 L, Albumin 2.8 L, Globulin 2.8, Albumin/Globulin Ratio 1.0 Radiography Diagnostic Testing: Radiology Impression Renal Ultrasound 01/18/23 05:55 IMPRESSION: Normal right kidney. Electronically Signed: Jae Saini MD at 9:09 EST , Physical Exam Const alert, oriented x3 and no apparent distress Constitutional Narrative: obese General Appearance: cooperative HEENT normocephalic, head/scalp atraumatic and moist oral mucous membranes Eyes EOMs intact bilaterally Neck supple Lymph Lymphatic: no lymphadenopathy noted Resp normal respiratory effort, normal air movement and clear to auscultation bilaterally Cardio regular rate, regular rhythm, S1 normal heart sound, S2 normal heart sound and no murmurs GI normal to inspection, nondistended, normoactive bowel sounds, soft to palpation,non-tender and non-distended Extremity normal capillary refill, no clubbing, cyanosis or edema and no calf tenderness Skin General Skin Exam: no breakdown Neuro CN's II-XII intact bilaterally, no focal motor deficits and no sensory deficits noted Motor Exam: strength 5/5 throughout Psych thought process normal Appearance: appropriate Assessment & Plan Assessment/Plan (1) Acute kidney injury: (2) Acute hyperkalemia: PLAN: Plan #Hyperkalemia * improving. Potassium down to 5.7 this morning. It was 6 on admission. * Will give Kayexalate. Hold all nephrotoxic medications. * Nephrology on board. * #MICHAEL on CKD * Creatinine is 2.21. Was 2.42 on admission. Continue gentle hydration with IV fluids and trend. * #History of left renal carcinoma s/p left nephrectomy * Now has solitary kidney. Will monitor. * #Type 2 diabetes mellitus: * REESE inhibitor discontinued on account of elevated potassium. * Insulin sliding scale. Accu-Cheks ACHS. * Also on sitagliptin and Lantus 35 units daily. #Pancreatic insufficiency: On Creon #Hypothyroidism: * On Synthroid * TSH was low and normal free T4; Synthroid decreased to 150mcg daily. * to have follow up TFTs in 4-6 weeks #Hypertension: On carvedilol; this was held due to bradycardia #Bradycardia: had bradycardia in the ED with HR of 45. coreg on hold. Will monitor. #Hyperlipidemia: On statin #GERD: On PPI #Asthma: on breathing treatment with bronchodilators. On montelukast #KARMA; on BIPAP DVT prophylaxis: heparin Charges/Coding Visit Charges Inpatient E&M: 15345 Subs Hosp L2 01/18/23 1433 <Electronically signed by Miryam Lacey MD> Miryam Lacey MD Cosigner Signature (if applicable): CC: ~ Signed [facility] Work Phone: 1(897) 209-212703-11-[address] Torre [facility] January 19, 2023 1:48pm Note Date/Time January 18, 2023 10: 09am [facility] Medical Records Department [address] [facility] [place] [address] Consultation - Nephrology 01/18/23 0959 MR#: [id number] Acct: [id number] Name: EVERTON BEATTY Rep #:[id number] : 1945 77 From: Helen Monzon PCP: Dr. Marta Koehler MD Status:AD M IN Location: [place] [address] Assessment & Plan Assessment/Plan (1) Acute kidney injury superimposed on CKD: PLAN: due to prerenal event, poor intake, ACEI. Creatinine 1.2 to 1.6 post nephrectomy. Creatinine on admit 1.8 eGFR 28cc/min. Hold benazepril. (2) CKD (chronic kidney disease) stage 4, GFR 15-29 ml/min: PLAN: Creatinine 1.8 to 2.2 eGFR 24-28cc/min in solitary kidney. Discussed dialysis when eGFR <15cc/min. Follow up in office 1-2 wks (3) Solitary kidney, acquired: PLAN: s/p left nephrectomy 11/13/22 for cancer. Follow up with (4) Clear cell carcinoma of left kidney: PLAN: s/p left nephrectomy (5) Acute hyperkalemia: PLAN: avoid NSAIDs, stop KCL. Hold ACEI,. Dietary counselling for low potassium diet. Kayexalate as needed (6) Weight loss, unintentional: (7) Hypertension: PLAN: optimize BP (8) Diabetes mellitus, type 2: PLAN: resume with ARB therapy when K stable. Stop ACEI for high potassium (9) Pancreatic insufficiency: PLAN: on creon managed by GI (10) Psoriatic arthritis: PLAN: hx tremfya use, off since September 2022. Managed by rheumatology (11) Anemia: PLAN: adequate iron stores, hgb 9.6g HPI Consult Data Date of Consult: 01/19/23 HPI Narrative Reason for Consultation: CKD, hyperkalemia HPI Narrative: EVERTON BEATTY, is a 77 F who presents to ED on 01/17/23 with chronic nausea without emesis and decreased urine output over the last 48 hours. She is admitted for hyperkalemia, bradycardia, MICHAEL on CKD. She has solitary kidney diease with hx renal cell carcinoma s/p left radical nephrectomy on 11/13/22. Creatinine baseline appears to be in the 2 range after nephrectomy with prior creatinine at 0.9 in 2021, 1.28 on 11/14/22, 1.64 on 12/09/22 post nephrectomy. Creatinine on admission 1.87 eGFR 28cc/min peaked at 2.4 now 2.2 EGFR 23cc/min with iv fluids. She has hyperkalemia on potassium supplements at home along withACEI therapy. She is on lasix prn for leg edema. She admits to eating foods highin potassium. Has not been placed on a diet restriction in the past. Shee has hypertension not well controlled. She has longstanding diabetes for 26 years, oninsulin past several years. Sugars have been running low with poor appetite. Shehas a 100# weight loss history over 1 year and was recently started on creon forpancreatic insufficiency by GI. She has IBS-C. She had bradyarrhythmia with pulse in the 40's to 50's. Potassium 5.7 to 6.0 treated medically. [facility] Medical History (Updated 01/19/23 @ 13:[address] Helen Torre DO) Anemia Arthritis Asthma BiPAP (biphasic positive airway pressure) dependence Cervical spondylosis Constipation Depression Diabetes Diabetes mellitus, type 2 Fibromyalgia Former smoker GERD (gastroesophageal reflux disease) History of back problems Hypertension IBS (irritable bowel syndrome) Lipodermatosclerosis Psoriatic arthritis Renal cell carcinoma Rosacea Sleep apnea Wears glasses Home Medications calcium carbonate 600 mg calcium (1,500 mg) tablet 600 mg PO DAILY SUPPLEMENT 02/05/18 [History Last Taken Unknown] cetirizine 10 mg tablet 10 mg PO DAILY Check with primary doctor 02/05/18 [History Last Taken 11/13/22] coenzyme Q10 100 mg-vitamin E 10 unit capsule 1 ea PO DAILY Check with primary doctor 02/05/18 [History Last Taken Unknown] insulin glargine 100 unit/mL (3 mL) subcutaneous pen 35 units subcut 1000 diabetes 02/05/18 [History Last Taken Unknown] levocetirizine 5 mg tablet 5 mg PO DAILY Check with primary doctor 02/05/18 [History Last Taken Unknown] levothyroxine 175 mcg tablet 175 mcg PO SUTUWETHFRSA THYROID 02/05/18 [History Last Taken 07/14/20] mometasone-formoterol HFA 200 mcg-5 mcg/actuation aerosol inhaler 2 puff IH DAILY ASTHMA 02/05/18 [History Last Taken 11/13/22] montelukast 10 mg tablet 10 mg PO DAILY Check with primary doctor 02/05/18 [History Last Taken Unknown] multivitamin with iron 1 ea PO DAILY SUPPLEMENT 02/05/18 [History Last Taken Unknown] potassium chloride 20 mEq tablet,extended release(part/cryst) 20 meq PO LUNCH Check with primary doctor 02/05/18 [History Last Taken Unknown] pravastatin 20 mg tablet 20 mg PO QHS CHOLESTEROL 02/05/18 [History Last Taken Unknown] sitagliptin phosphate 100 mg tablet 100 mg PO DAILY DIABETES 02/05/18 [History Last Taken Unknown] albuterol sulfate 90 mcg/actuation aerosol inhaler 6.7 gm IH Q4H PRN PRN Wheezing 12/08/19 [History Last Taken Unknown] carvedilol phosphate 20 mg capsule,ext.[id number] multiphase 20 mg PO DAILY Check with primary doctor 12/08/19 [History Last Taken 11/13/22] furosemide 40 mg tablet 40 mg PO DAILY PRN WATER PILL 06/26/20 [History Last Taken Unknown] omeprazole 40 mg capsule,delayed release 40 mg PO DAILY Check with primary doctor 06/26/20 [History Last Taken 07/14/20] Miralax 1 dose OTHER DAILY Check with primary doctor 10/30/22 [History Last Taken Unknown] acetaminophen 650 mg tablet 650 mg PO BID Check with primary doctor 10/30/22 [History Last Taken Unknown] melatonin 10 mg capsule 10 mg PO DAILY Check with primary doctor 10/30/22 [History Last Taken Unknown] tramadol 50 mg tablet 50 mg PO BID Check with primary doctor 10/30/22 [History Last Taken Unknown] vortioxetine 10 mg tablet (Trintellix) 10 mg PO DAILY Check with primary doctor 10/30/22 [History Last Taken Unknown] docusate sodium 100 mg capsule (Colace) 100 mg PO BID #20 caps 11/13/22 [Rx Last Taken Unknown] oxycodone-acetaminophen 5 mg-325 mg tablet 1 tab PO Q6H PRN pain 7 days #14 tabs11/13/22 [Rx Last Taken Unknown] quihwt-spyzxums-qgmuqnr 36,000-114,000-180,000 unit capsule,delay rel (Creon) See Rx Instructions PO .COMPLEX #320 caps 12/25/22 [Rx Last Taken Unknown] scopolamine base 1 mg over 3 days transdermal patch 1 patch transdermal Q3D PRN nausea and vomiting #10 ea 01/06/23 [Rx Last Taken Unknown] ondansetron HCl 4 mg tablet 4 mg PO Q6H #60 tabs 01/09/23 [Rx Last Taken Unknown] promethazine 25 mg rectal suppository 25 mg ME Q6H PRN nausea and vomiting #12 ea 01/09/23 [Rx Last Taken Unknown] amlodipine 5 mg tablet 5 mg PO DAILY #30 tabs 01/19/23 [Rx Last Taken Unknown] cefdinir 300 mg capsule 300 mg PO BID #10 caps 01/19/23 [Rx Last Taken Unknown] Allergy/AdvReac Type Severity Reaction Status Date / Time telithromycin [From Ketek] Allergy Severe Nausea/Vom/ Verified 01/17/23 20:50 Diarrhea Penicillins [PCN] Allergy Swelling Verified 01/17/23 20:50 duloxetine [From Cymbalta] AdvReac Other Verified 01/17/23 20:50 Family History Grandfather Arthritis Father Diabetes Grandmother Heart disease Hypertension Surgical History history bilateral cataract surgery History of cholecystectomy History of hysterectomy History of nephrectomy, left History of tubal ligation Social History household members: spouse Smoking Status: Former smoker alcohol intake: never substance use type: does not use ROS Constitutional Constitutional: Reports malaise and weakness; Denies chills or fever(s) Eyes Eyes: Denies loss of vision ENT HEENT: Denies nasal congestion Cardiovascular Cardiovascular: Reports leg edema; Denies diaphoresis or syncope Respiratory/Chest Respiratory/Chest: Denies dry cough or dyspnea on exertion Gastrointestinal Gastrointestinal: Reports anorexia, nausea, weight changes and other Details: weight loss 100#, pancreatic insufficiency, IBS-c ; Denies abdominal pain, diarrhea, hematemesis, hematochezia or melena Genitourinary Genitourinary: Reports change in urinary stream; Denies dysuria or flank pain Neurologic Neurologic: Reports weakness; Denies tremor(s) Psychiatric Psychiatric: Denies anxiety or confusion Endocrine Endocrinology: Reports cold intolerance and fatigue Hematologic/Lymphatic Hematologic/Lymphatic: Denies easy bruising Physical Exam Const alert and oriented x3 General Appearance: well developed Nutritional Appearance: morbidly obese HEENT normocephalic Cardio regular rate GI non-tender and non-distended Auscultation: normoactive bowel sounds Palpation: soft no CVA tenderness Skin Skin Narrative: diabeticorum Neuro CN's II-XII intact bilaterally Psych cooperative Lab / Micro Data Result Diagrams: 01/18/23 07:26 01/19/23 05:20 Labs: Laboratory Results - last 24 hr 01/17/23 21:10: WBC 7.3, RBC 3.41 L, Hgb 9.8 L, Hct 31.2 L, MCV 91.5, MCH 28.7, MCHC 31.4 L, RDW Std Deviation 45.8 H, RDW Coeff of Za 13.5, Plt Count 187, MPV11.2, Immature Gran % (Auto) 0.100, Neut % (Auto) 61.1, Lymph % (Auto) 21.5, Iron % (Auto) 9.0, Eos % (Auto) 7.6 H, Baso % (Auto) 0.7, Absolute Neuts (auto) 4.4, Absolute Lymphs (auto) 1.56, Nucleated RBC % 0 01/17/23 21:10: Phosphorus 3.3, Magnesium 2.2 01/17/23 21:10: Sodium 138, Potassium 6.0 H*, Chloride 109 H, Carbon Dioxide 23.0, Anion Gap 6, BUN 35 H, Creatinine 2.42 H, Estim Creat Clear Calc 16.36, Est GFR (MDRD) Af Amer 25 L, Est GFR (MDRD) Non-Af 21 L, BUN/Creatinine Ratio 14.5, Glucose 141 H, Calcium 9.1 01/17/23 21:30: POC Glucose 135 H 01/18/23 03:40: Sodium 141, Potassium 5.3 H, Chloride 112 H, Carbon Dioxide 23.0, Anion Gap 6, BUN 34 H, Creatinine 2.20 H, Estim Creat Clear Calc 18.00, Est GFR (MDRD) Af Amer 28 L, Est GFR (MDRD) Non-Af 23 L, BUN/Creatinine Ratio 15.5, Glucose 46 L, Calcium 9.1 01/18/23 05:31: Ur Random Sodium 106, Urine Creatinine 129.00 01/18/23 06:35: POC Glucose 85 01/18/23 07:26: WBC 5.6, RBC 3.32 L, Hgb 9.6 L, Hct 30.5 L, MCV 91.9, MCH 28.9, MCHC 31.5 L, RDW Std Deviation 47.7 H, RDW Coeff of Za 14.0, Plt Count 161, MPV11.4, Immature Gran % (Auto) 0.200, Neut % (Auto) 59.0, Lymph % (Auto) 23.0, Iron % (Auto) 9.6, Eos % (Auto) 7.3 H, Baso % (Auto) 0.9, Absolute Neuts (auto) 3.3, Absolute Lymphs (auto) 1.29, Nucleated RBC % 0 01/18/23 07:26: Sodium 138, Potassium 5.7 H, Chloride 109 H, Carbon Dioxide 23.0, Anion Gap 6, BUN 33 H, Creatinine 2.21 H, Estim Creat Clear Calc 17.91, Est GFR (MDRD) Af Amer 28 L, Est GFR (MDRD) Non-Af 23 L, BUN/Creatinine Ratio 14.9, Glucose 140 H, Calcium 9.4, Total Bilirubin 0.50, AST 14 L, ALT 19, Alkaline Phosphatase 56, Total Protein 5.6 L, Albumin 2.8 L, Globulin 2.8, Albumin/Globulin Ratio 1.0 Radiology Impression Renal Ultrasound 01/18/23 05:55 IMPRESSION: Normal right kidney. Electronically Signed: Jae Saini MD at 9:09 EST , 01/19/23 1348 <Electronically signed by Helen Torre DO> Cosigner Signature (if applicable): CC: Dr. Brandi Castellon MD; Dr. Helen Torre DO; Dr. Marta Koehler MD~ Signed [facility] Work Phone: 1(311) 739-851403-11-2023 History and physical note Author Dr. Castellon [facility] January 18, 2023 1:33am Note Date/Time January 17, 2023 10: 16pm [facility] Medical Records Department [address] [place] [id number] History & Physical Exam 01/17/23 2215 MR#: [id number] Acct: [id number] Name: EVERTON BEATTY Rep #:[id number] : 1945 77 From: Brandi Castellon MD PCP: Dr. Marta Koehler MD Status:AD M IN Location: [place] [address] HPI - General General Date of Admission: 01/17/23 Date of Service: 01/17/23 Chief Complaint: Nausea, decreased UOP, worsening renal function with elevated K, referred per PCP to ED. HPI Narrative The patient is a 77 y/o F w/ PMHx: Former tobacco use, Asthma, KARMA on BIPAP q HS, Hypothyroidism, HTN, HLD, Anxiety and Depression, Chronic normocytic anemia,IBS following with Dr. Chin, Diabetes mellitus type II, Psoriatic arthritis, Morbid obesity, Hx renal cell carcinoma s/p 11/13/22 left radical nephrectomy who presents to the [facility] ED on 01/17/23 with history of onset of nausea without emesisand decreased urine output over the last 48 hours with PCP evaluation secondary to the symptoms and blood work obtained with potassium level the day prior notedto be 5.5 with a repeat BMP on day of presentation noted to be 5.7 with additionally acute kidney injury with creatinine the day prior 1.87 with a GFR of 28 and upon current presentation increased further to 2.22 notably worsened since her unilateral nephrectomy with at the time of discharge 11/14/2022 BUN/creatinine 16/1.28 prompting PCP referral to the ED for significant concernsfor hyperkalemia and acute kidney injury. Patient denies any recent acute illnesses, emesis or diarrhea nor any abdominal cramping or urinary type symptoms. She does report a significant weight loss with her diagnosis of cancer. Work-up in the ED included T98.1, heart rate 71, BP 142/43, respiratoryrate 18, 97% on room air, CBC with WC 7.3, hemoglobin 9.8, MCV 91.5, platelet 187 without marked shift, BMP with sodium 137, potassium 5.7, BUN/Mascorro 32/2.22, glucose 154, EKG with prominent T waves compared to previous with a junctional rhythm with rate 45. In the ED patient administered hyperkalemia protocol with calcium gluconate, albuterol, dextrose and insulin. [facility] Medical History (Updated 01/18/23 @ 01:[address] Brandi Castellon MD) Anemia Arthritis Asthma BiPAP (biphasic positive airway pressure) dependence Cervical spondylosis Constipation Depression Diabetes Diabetes mellitus, type 2 Fibromyalgia Former smoker GERD (gastroesophageal reflux disease) History of back problems Hypertension IBS (irritable bowel syndrome) Lipodermatosclerosis Psoriatic arthritis Renal cell carcinoma Rosacea Sleep apnea Wears glasses Home Medications calcium carbonate 600 mg calcium (1,500 mg) tablet 600 mg PO DAILY SUPPLEMENT 02/05/18 [History Last Taken Unknown] cetirizine 10 mg tablet 10 mg PO DAILY Check with primary doctor 02/05/18 [History Last Taken 11/13/22] coenzyme Q10 100 mg-vitamin E 10 unit capsule 1 ea PO DAILY Check with primary doctor 02/05/18 [History Last Taken Unknown] insulin glargine 100 unit/mL (3 mL) subcutaneous pen 35 units subcut 1000 diabetes 02/05/18 [History Last Taken Unknown] levocetirizine 5 mg tablet 5 mg PO DAILY Check with primary doctor 02/05/18 [History Last Taken Unknown] levothyroxine 175 mcg tablet 175 mcg PO SUTUWETHFRSA THYROID 02/05/18 [History Last Taken 07/14/20] mometasone-formoterol HFA 200 mcg-5 mcg/actuation aerosol inhaler 2 puff IH DAILY ASTHMA 02/05/18 [History Last Taken 11/13/22] montelukast 10 mg tablet 10 mg PO DAILY Check with primary doctor 02/05/18 [History Last Taken Unknown] multivitamin with iron 1 ea PO DAILY SUPPLEMENT 02/05/18 [History Last Taken Unknown] potassium chloride 20 mEq tablet,extended release(part/cryst) 20 meq PO LUNCH Check with primary doctor 02/05/18 [History Last Taken Unknown] pravastatin 20 mg tablet 20 mg PO QHS CHOLESTEROL 02/05/18 [History Last Taken Unknown] sitagliptin phosphate 100 mg tablet 100 mg PO DAILY DIABETES 02/05/18 [History Last Taken Unknown] albuterol sulfate 90 mcg/actuation aerosol inhaler 6.7 gm IH Q4H PRN PRN Wheezing 12/08/19 [History Last Taken Unknown] amlodipine 5 mg-benazepril 20 mg capsule 1 tab PO DAILY Check with primary doctor 12/08/19 [History Last Taken 11/13/22] carvedilol phosphate 20 mg capsule,ext.[id number] multiphase 20 mg PO DAILY Check with primary doctor 12/08/19 [History Last Taken 11/13/22] furosemide 40 mg tablet 40 mg PO DAILY PRN WATER PILL 06/26/20 [History Last Taken Unknown] omeprazole 40 mg capsule,delayed release 40 mg PO DAILY Check with primary doctor 06/26/20 [History Last Taken 07/14/20] Miralax 1 dose OTHER DAILY Check with primary doctor 10/30/22 [History Last Taken Unknown] acetaminophen 650 mg tablet 650 mg PO BID Check with primary doctor 10/30/22 [History Last Taken Unknown] melatonin 10 mg capsule 10 mg PO DAILY Check with primary doctor 10/30/22 [History Last Taken Unknown] tramadol 50 mg tablet 50 mg PO BID Check with primary doctor 10/30/22 [History Last Taken Unknown] vortioxetine 10 mg tablet (Trintellix) 10 mg PO DAILY Check with primary doctor 10/30/22 [History Last Taken Unknown] docusate sodium 100 mg capsule (Colace) 100 mg PO BID #20 caps 11/13/22 [Rx Last Taken Unknown] oxycodone-acetaminophen 5 mg-325 mg tablet 1 tab PO Q6H PRN pain 7 days #14 tabs11/13/22 [Rx Last Taken Unknown] wszzpy-kdnfnprw-iirfkwl 36,000-114,000-180,000 unit capsule,delay rel (Creon) See Rx Instructions PO .COMPLEX #320 caps 12/25/22 [Rx Last Taken Unknown] scopolamine base 1 mg over 3 days transdermal patch 1 patch transdermal Q3D PRN nausea and vomiting #10 ea 01/06/23 [Rx Last Taken Unknown] ondansetron HCl 4 mg tablet 4 mg PO Q6H #60 tabs 01/09/23 [Rx Last Taken Unknown] promethazine 25 mg rectal suppository 25 mg ME Q6H PRN nausea and vomiting #12 ea 01/09/23 [Rx Last Taken Unknown] Allergy/AdvReac Type Severity Reaction Status Date / Time telithromycin [From Ketek] Allergy Severe Nausea/Vom/ Verified 01/17/23 20:50 Diarrhea Penicillins [PCN] Allergy Swelling Verified 01/17/23 20:50 duloxetine [From Cymbalta] AdvReac Other Verified 01/17/23 20:50 Family History Grandfather Arthritis Father Diabetes Grandmother Heart disease Hypertension Surgical History history bilateral cataract surgery History of cholecystectomy History of hysterectomy History of nephrectomy, left History of tubal ligation Social History household members: spouse Smoking Status: Former smoker alcohol intake: never substance use type: does not use ROS ROS Narrative Admission Review of Systems: CONSTITUTIONAL: No weight loss, fever, chills, + weakness or fatigue. HEENT: Eyes: No visual loss, blurred vision, double vision or yellow sclerae. Ears, Nose, Throat: No hearing loss, sneezing, congestion, runny nose or sore throat. SKIN: No rash or itching, lesions, wounds. CARDIOVASCULAR: No chest pain, chest pressure or chest discomfort, palpitations,edema, orthopnea, syncopal events. RESPIRATORY: No shortness of breath, cough or sputum, wheezing, hemoptysis. GASTROINTESTINAL: + anorexia, nausea without vomiting or diarrhea, abdominal pain, melena, BRBPR. GENITOURINARY: + Decreased urine output. No dysuria, frequency, urgency or retention. NEUROLOGICAL: No headache, dizziness, syncope, paralysis, ataxia, numbness or tingling in the extremities, focal weakness, change in bowel or bladder control,seizure. MUSCULOSKELETAL: + muscle, back pain, joint pain or stiffness. HEMATOLOGIC: + anemia, bleeding or bruising. LYMPHATICS: No enlarged nodes. No history of splenectomy. PSYCHIATRIC: No history of depression or anxiety. ENDOCRINOLOGIC: No reports of sweating, cold or heat intolerance. No polyuria orpolydipsia. ALLERGIES: + history of asthma, rhinitis. Vital Signs Vital Signs Vital Signs: 01/17/23 20:48 01/17/23 20:53 01/17/23 21:52 Temperature 98.1 F 97.2 F L Temperature Source Temporal Oral Pulse Rate 71 59 L Respiratory Rate 18 18 Respiratory Effort Normal Non-Labored Respiratory Pattern Normal Blood Pressure 142/43 H 141/47 H Blood Pressure Mean 76 78 Pulse Ox 97 97 Oxygen Delivery Method Room Air Room Air Weight Weight: 232 lb Body Mass Index (BMI) 41.1 Physical Exam Narrative Physical Examination: General: Awake, alert, oriented x 3 and cooperative, seated upright in the ED bed, fatigued but no acute distress. Skin: Normal color, normal turgor, no icterus, no cyanosis except bilateral lower extremity distal stasis skin changes. HEENT: AT/NC, EOMI, PERRLA, moderately dry MM, no carotid bruits or JVD noted; however thickened neck makes evaluation difficult. Lungs: Diminished, greater bases, proper effort, no rales, ronchi or wheezing. Heart: Bradycardic with regular rhythm; no gallop, rub audible. Abdomen: Soft, morbidly obese, NTTP, no obvious distention, mildly hyperactive BS, no obvious HSM however habitus makes evaluation difficult. Extremities: No cyanosis, no clubbing, see skin, pedal to mid kearns chronic edema, pitting. Neurological: Patient awake, alert, oriented as noted, cognitive function intact; pupils equally reactive to light and accommodation, cranial nerves II-XII grossly normal, moving all 4 extremities, no focal deficits, strength moderately global decrease secondary to acute presentation complaints. Psychiatric: Affect appears fatigued, no acute evidence of depressive or anxietyfeelings. Results Lab / Micro Data Result Diagrams: 01/17/23 21:10 01/17/23 21:10 Labs: Laboratory Results - last 24 hr 01/17/23 21:10: WBC 7.3, RBC 3.41 L, Hgb 9.8 L, Hct 31.2 L, MCV 91.5, MCH 28.7, MCHC 31.4 L, RDW Std Deviation 45.8 H, RDW Coeff of Za 13.5, Plt Count 187, MPV11.2, Immature Gran % (Auto) 0.100, Neut % (Auto) 61.1, Lymph % (Auto) 21.5, Iron % (Auto) 9.0, Eos % (Auto) 7.6 H, Baso % (Auto) 0.7, Absolute Neuts (auto) 4.4, Absolute Lymphs (auto) 1.56, Nucleated RBC % 0 01/17/23 21:30: POC Glucose 135 H Assessment & Plan Assessment/Plan (1) Acute kidney injury: PLAN: Plan The patient is a 77 y/o F w/ PMHx: Former tobacco use, Asthma, KARMA on BIPAP q HS, Hypothyroidism, HTN, HLD, Anxiety and Depression, Chronic normocytic anemia,IBS following with Dr. Chin, Diabetes mellitus type II, Psoriatic arthritis, Morbid obesity, Hx renal cell carcinoma s/p 11/13/22 left radical nephrectomy who presents to the [facility] ED on 01/17/23 with history of onset of nausea and decreased urine output over the last 48 hours with PCP evaluation secondary to the symptoms and blood work obtained with potassium level the day prior noted to be 5.5 with a repeat BMP on day of presentation noted to be 5.7 with additionally acute kidney injury with creatinine the day prior 1.87 with a GFR of 28 and uponcurrent presentation increased further to 2.22 notably worsened since her unilateral nephrectomy with at the time of discharge 11/14/2022 BUN/creatinine 16/1.28 prompting PCP referral to the ED for significant concerns for hyperkalemia and acute kidney injury. #1. Acute kidney injury: Unclear specific etiology but patient is status post unilateral nephrectomy 11/13/2022 with steadily worsening renal function since, suspect this is multifactorial, admission BUN/Cr 32/2.22, prior baseline creatinine noted to be 1.28 on 11/14/2022 following nephrectomy and noted to steadily be increasing with 12/09/2022 creatinine 1.64 and most recently 01/17/2023 just prior to admission per PCP 2.2. Will admit to PCU given associatedhyperkalemia, will continue to judiciously hydrate, hold nephrotoxic medications, obtain renal US, FeNa, consult Dr. Helen Torre Nephrology. #2. Acute Hyperkalemia: In the setting of acute kidney injury likely the etiology, PCP 01/16/2023 potassium 5.5 steadily increasing and upon ED presentationpotassium 5.7, patient administered calcium gluconate with EKG not severe appearing, IV insulin with dextrose as well as albuterol inhalation, will maintain on telemetry monitoring, trend potassium function and will dose x1 now with Kayexalate regimen. Nephrology consulted as noted. #3. Bradycardia with AV junctional rhythm: In the ED rhythm and EKG noted to bejunctional rhythm with rate 45 with T wave slightly prominent with sinus rhythm noted on prior 11/14/2022 EKG, suspect associated with current electrolyte and function abnormality, will maintain on telemetry, magnesium level pending, holding home Coreg regimen, continue to attempt to correct hyperkalemia and acute kidney injury with interventions as noted above, patient with no associated chest discomfort or dyspnea. #4. Hypothyroidism with recent abnormal thyroid studies outpatient: Upon reviewof labs PCP did obtain 01/16/2023 TSH noted to be 0.11 with free T4 1.61 consistent with mild hyperthyroidism, possibly iatrogenic, will decrease levothyroxine to 150 mcg daily with recommended follow-up repeat thyroid function studies in 4 to 6 weeks. #5. History renal cell carcinoma: Patient with left renal cell carcinoma statuspost radical nephrectomy 11/13/2022, progressive worsening of patient's renal function since the nephrectomy, cancer currently considered in remission, encourage continued follow-up with urology/oncology. #6. Chronic normocytic anemia: Admission hemoglobin 9.8, MCV 91.5, baseline hemoglobin appears primarily 10-11 range, will repeat level in a.m. and if trends downward we will investigate further. #7. Diabetes mellitus type II: Hold oral home regimen, continue home insulin regimen however we will continue adjusted dose given recent decreased intake with nausea to avoid hypoglycemia, ADA diet, accu checks w/ ISS. #8. Hypertension: We will continue patient home Norvasc but holding all other nephrotoxic regimen at this time including Lasix and benazepril, as needed IV hydralazine. #9. Hyperlipidemia: We will continue patient on statin therapy. #10. Asthma with allergic rhinitis: We will temporally hold home inhaler and transition the interim to budesonide ATC with as needed albuterol, continue montelukast home regimen. #11. IBS: Patient following with Dr. Chin, will continue Creon as well as bowel regimen. #12. Morbid Obesity: Weight loss and lifestyle changes encourage. #13. GERD: We will maintain on home omeprazole regimen. #14. Psoriatic arthritis: Noted history, not on any chronic steroids or medications per current list, encourage continued outpatient follow-up with rheumatology. #15. Former tobacco use: Encourage continued tobacco cessation. #16. KARMA: BiPAP nightly. #17. DVT prophylaxis: Heparin. #18. CODE status: Patient KI is her and her daughter who are presentand living will is currently in place. Discussed CODE status at length includingdifference between FULL code, DNR-CCA and DNR-CC status. Following discussions about the differences in these status, requested DNR-CCA, on intubation status. She notes that she very specifically does not have her son as her HCPOA as he would not honor her DNR-CCA, no intubation status preference. Advanced Care Planning Face to Face Time: 17 minutes. Admission Evaluation Time spent evaluating chart, patient history, patient evaluation, care planning and discussion with specialists: 75 minutes. Charges/Coding Visit Charges Inpatient E&M: 00809 Init Hosp L3 Procedures Hospitalists Procedures: 96117 Advncd Care Plan 30 Min 01/18/23 0133 <Electronically signed by Brandi Castellon MD> Cosigner Signature (if applicable): CC: Dr. Brandi Castellon MD; Dr. Marta Koehler MD~ Signed [facility] Work Phone: 1(879) 334-797003-10-[address] Frazier [facility] January 17, 2023 9:47pm Note Date/Time January 17, 2023 9:4 0pm [facility] Medical Records Department [address] [place] [address] Emergency Department Summary 01/17/23 MR#: [id number] Acct: [id number] Name: EVERTON BEATTY Nash Rep #:[id number] : 1945 77 From: Mitchell Frazier MD PCP: Dr. Marta Koehler MD Status:RE G ER Location: ED HPI History of Present Illness Chief Complaint: Abn Labs Detail of Chief Complaint: Hyperkalemia and increased creatinine Informant: patient, spouse/S.O., family and PCP Onset/Context/Timing Onset: Today and Yesterday Context: Sudden Onset Timing: Continuous Quality: Elevated potassium Location: Renal Current Severity: Mild Maximum Severity: Mild Worsened by: Uncertain Relieved by: Nothing Associated Symptoms Associated Symptoms: Decreased urine output Narrative Narrative: Patient is a 77-year-old woman with reported nausea yesterday with decreased urine output. Was seen by PCP. Blood work yesterday revealed a potassium of 5.5. Repeat BMP reveals creatinine of 5.7. Yesterday creatinine was 1.87 with a GFR of 28. Today creatinine is 2.22 with a GFR of 22. Patient BUN and creatinine was 16 and 1.28 with a GFR of 43 on November 14, 2022. Patient denies use of salt substitutes. Patient is on no potassium sparing diuretic. She is on Lasix. She has had no change in her diet. Patient denies fever, chills night sweats. Patient denies headache, visual, ocular auditory symptoms. Patient denies cardiac respiratory symptoms. Patient denies dysuria, frequency, urgency or hematuria. Patient admits to 105 pound weight loss due to renal cell carcinoma. She is status post nephrectomy by Dr. Huizar for renal cell carcinoma. Prior similar symptoms: Yes Recent Illness/Hospitalization: No PFSH PFSH Medical History Anemia Arthritis Asthma BiPAP (biphasic positive airway pressure) dependence Cervical spondylosis Constipation Depression Diabetes Fibromyalgia Former smoker GERD (gastroesophageal reflux disease) History of asthma History of back problems History of diabetic neuropathy History of hypothyroidism History of type 1 diabetes mellitus Hypertension IBS (irritable bowel syndrome) Lipodermatosclerosis Nausea Obesity Psoriatic arthritis Renal cell carcinoma Rosacea Sleep apnea SOB (shortness of breath) Wears glasses Home Medications calcium carbonate 600 mg calcium (1,500 mg) tablet 600 mg PO DAILY SUPPLEMENT 02/05/18 [History Last Taken Unknown] cetirizine 10 mg tablet 10 mg PO DAILY Check with primary doctor 02/05/18 [History Last Taken 11/13/22] coenzyme Q10 100 mg-vitamin E 10 unit capsule 1 ea PO DAILY Check with primary doctor 02/05/18 [History Last Taken Unknown] insulin glargine 100 unit/mL (3 mL) subcutaneous pen 45 units subcut 1000 Check with primary doctor 02/05/18 [History Last Taken Unknown] levocetirizine 5 mg tablet 5 mg PO DAILY Check with primary doctor 02/05/18 [History Last Taken Unknown] levothyroxine 175 mcg tablet 175 mcg PO SUTUWETHFRSA THYROID 02/05/18 [History Last Taken 07/14/20] mometasone-formoterol HFA 200 mcg-5 mcg/actuation aerosol inhaler 2 puff IH DAILY ASTHMA 02/05/18 [History Last Taken 11/13/22] montelukast 10 mg tablet 10 mg PO DAILY Check with primary doctor 02/05/18 [History Last Taken Unknown] multivitamin with iron 1 ea PO DAILY SUPPLEMENT 02/05/18 [History Last Taken Unknown] potassium chloride 20 mEq tablet,extended release(part/cryst) 20 meq PO LUNCH Check with primary doctor 02/05/18 [History Last Taken Unknown] pravastatin 20 mg tablet 20 mg PO QHS CHOLESTEROL 02/05/18 [History Last Taken Unknown] sitagliptin phosphate 100 mg tablet 100 mg PO DAILY DIABETES 02/05/18 [History Last Taken Unknown] albuterol sulfate 90 mcg/actuation aerosol inhaler 6.7 gm IH Q4H PRN PRN Wheezing 12/08/19 [History Last Taken Unknown] amlodipine 5 mg-benazepril 20 mg capsule 1 tab PO DAILY Check with primary doctor 12/08/19 [History Last Taken 11/13/22] carvedilol phosphate 20 mg capsule,ext.[id number] multiphase 20 mg PO DAILY Check with primary doctor 12/08/19 [History Last Taken 11/13/22] furosemide 40 mg tablet 40 mg PO DAILY PRN WATER PILL 06/26/20 [History Last Taken Unknown] omeprazole 40 mg capsule,delayed release 40 mg PO DAILY Check with primary doctor 06/26/20 [History Last Taken 07/14/20] Miralax 1 dose OTHER DAILY Check with primary doctor 10/30/22 [History Last Taken Unknown] acetaminophen 650 mg tablet 650 mg PO BID Check with primary doctor 10/30/22 [History Last Taken Unknown] melatonin 10 mg capsule 10 mg PO DAILY Check with primary doctor 10/30/22 [History Last Taken Unknown] tramadol 50 mg tablet 50 mg PO BID Check with primary doctor 10/30/22 [History Last Taken Unknown] vortioxetine 10 mg tablet (Trintellix) 10 mg PO DAILY Check with primary doctor 10/30/22 [History Last Taken Unknown] docusate sodium 100 mg capsule (Colace) 100 mg PO BID #20 caps 11/13/22 [Rx Last Taken Unknown] oxycodone-acetaminophen 5 mg-325 mg tablet 1 tab PO Q6H PRN pain 7 days #14 tabs11/13/22 [Rx Last Taken Unknown] apdlgv-[id number]-hycrbdh 36,000-114,000-180,000 unit capsule,delay rel (Creon) See Rx Instructions PO .COMPLEX #320 caps 12/25/22 [Rx Last Taken Unknown] scopolamine base 1 mg over 3 days transdermal patch 1 patch transdermal Q3D PRN nausea and vomiting #10 ea 01/06/23 [Rx Last Taken Unknown] ondansetron HCl 4 mg tablet 4 mg PO Q6H #60 tabs 01/09/23 [Rx Last Taken Unknown] promethazine 25 mg rectal suppository 25 mg ME Q6H PRN nausea and vomiting #12 ea 01/09/23 [Rx Last Taken Unknown] Allergy/AdvReac Type Severity Reaction Status Date / Time telithromycin [From Ketek] Allergy Severe Nausea/Vom/ Verified 01/17/23 20:50 Diarrhea Penicillins [PCN] Allergy Swelling Verified 01/17/23 20:50 duloxetine [From Cymbalta] AdvReac Other Verified 01/17/23 20:50 Family History Grandfather Arthritis Father Diabetes Grandmother Heart disease Hypertension Surgical History history bilateral cataract surgery History of cholecystectomy History of hysterectomy History of tubal ligation Social History Smoking Status: Former smoker alcohol intake: never substance use type: does not use ROS ROS ED Constitutional Constitutional ED: Reports sweats and weight loss; Denies chills or fever(s) Eyes Eyes: Denies blurry vision, change in vision or diplopia ENT ENT ED: Denies ear pain, rhinorrhea or sore throat Cardiovascular Cardiovascular: Denies chest pain, orthopnea, palpitations or paroxysmal nocturnal dyspnea Respiratory/Chest Respiratory/Chest: Denies cough, dyspnea, dyspnea on exertion, orthopnea or paroxysmal nocturnal dyspnea Gastrointestinal Gastrointestinal: Reports nausea; Denies abdominal pain, constipation, diarrhea or melena Genitourinary Genitourinary ED: Reports other Details: Patient admits to decreased urine output. ; Denies dysuria, hematuria or urinary frequency Musculoskeletal Musculoskeletal: Reports back pain; Denies arthralgias, myalgias or neck pain Integumentary Denies Abrasions or rash Neurologic Neurologic: Reports weakness; Denies headache(s) or paresthesias Endocrine Endocrinology: Denies cold intolerance or heat intolerance Hematologic/Lymphatic Hematologic/Lymphatic: Reports systems reviewed and no addt'l complaints, exceptas documented EXAM Physical Exam Const Vital Signs: 01/17/23 20:48 01/17/23 20:53 Temperature 98.1 F Temperature Source Temporal Pulse Rate 71 Respiratory Rate 18 Respiratory Effort Normal Non-Labored Respiratory Pattern Normal Blood Pressure 142/43 H Blood Pressure Mean 76 Pulse Ox 97 Oxygen Delivery Method Room Air Positive well nourished, well developed and obese General Appearance ED: well developed, NAD and pallor; Negative for cyanotic or diaphoretic Nutritional Appearance: obese HEENT Reports moist mucous membranes HEENT Narrative: Head is atraumatic normocephalic. Ears normal. Nares patent. Posterior pharynx is normal. Uvula is midline Eyes PERRL and EOMs intact bilaterally General Eye ED: Negative for pale conjunctiva or scleral icterus Neck no lymphadenopathy, supple and no JVD Chest Wall inspection of chest normal and palpation of chest normal Resp normal respiratory effort and clear to auscultation bilaterally Cardio regular rate, regular rhythm, S1 normal heart sound, S2 normal heart sound and no murmurs GI normal to inspection, nondistended, normoactive bowel sounds, non-tender, non-distended and no masses; Negative for hepatosplenomegaly GI Narrative: No palpable pulsatile mass. Back/Spine no CVA tenderness Extremity Negative for normal to inspection Extremity Narrative: Pedal edema that is pitting in nature with minimal changes consistent with venous stasis dermatitis. Swelling is about baseline per patient and family. General Extremety ED: Yes edema General Extremity: edema Neuro oriented x3, CN's II-XII intact bilaterally and no sensory deficits noted Sensorium / Orientation: alert Motor Exam: strength 5/5 throughout Psych mental status grossly normal Skin No no rashes or lesions noted, no wounds and skin turgor normal General Skin Exam: pallor; Negative for elasticity normal or jaundice MDM MDM MDM Narrative Medical decision making narrative: Prior records reviewed. Patient's prior renal function tests were reviewed in the HPI. Patient has acute kidney injury with hyperkalemia. EKG reveals slightly prominent T waves when compared to prior and has a junctional rhythm with a rate of 45. We will treat for hyperkalemia with calcium gluconate, albuterol, 225 and 6 units of insulin. The hyperkalemia order set was initiated. Patient appears pale will obtain CBC to assess for anemia. PGT was obtained and is 137. History & Record Review Discussion w/independent historian: Patient, Significant other and Other (Dr. Dudley who called in prior to patient's arrival.) Additional record(s) reviewed:: Prior inpatient record (Operative note and hospitalization note for nephrectomy for renal cell carcinoma.), Prior outpatient record and Prior labs Lab Data Attestation: I reviewed the patient's lab results. Lab results narrative: BMP was not repeated since it was done several hours at [facility] lab. CBC does reveal anemia with an H&H of 9.8 and 31.2 with normal indices. Patient's H&H on November 14 was 10.6 and 32.3. This is not a significantdifference. Patient does have proteinuria based on laboratory test done earlier today. Labs: Laboratory Results - last 24 hr 01/17/23 21:10 WBC 7.3 RBC 3.41 L Hgb 9.8 L Hct 31.2 L MCV 91.5 MCH 28.7 MCHC 31.4 L RDW Std Deviation 45.8 H RDW Coeff of Za 13.5 Plt Count 187 MPV 11.2 Immature Gran % (Auto) 0.100 Neut % (Auto) 61.1 Lymph % (Auto) 21.5 Iron % (Auto) 9.0 Eos % (Auto) 7.6 H Baso % (Auto) 0.7 Absolute Neuts (auto) 4.4 Absolute Lymphs (auto) 1.56 Nucleated RBC % 0 EKG Initial EKG: Attestation: I personally reviewed and interpreted this EKG as follows: Interpretation: - (Junctional rhythm with a rate of 45. T waves are slightly prominent. This is compared to EKG that was obtained November 14, 2022. Patient was in a sinus rhythm at that time.) Prior: Changed Critical Care Time Critical Care Time: Yes Critical care time (excluding procedures): 30-74 minutes (31), Including time spent: (History, physical, documentation, review of prior records and records from outside source initiation of therapy for hyperkalemia with junctional rhythm), Discussing w/Patient &/or Family/University Administrative Assistant, Discussing w/Consultants and Arranging Admission or Transfer Discharge Plan Dx/Rx/DC Orders Clinical Impression: Acute hyperkalemia, History of type 1 diabetes mellitus, History of hypothyroidism, AV junctional rhythm, Bradycardia with 41-50 beats per minute, Acute kidney injury Disposition Disposition: Acute Care Hospital [facility] What to do if you have Problems For any increased pain, shortness of breath, bleeding, nausea or vomiting, chestpain, or any unexpected problems, contact your Primary Care Provider. Call [facility] ([phone]) or report to the closest Emergency Room. Call 911 if necessary. 01/17/232146 <Electronically signed by Mitchell Frazier MD> Cosigner Signature (if applicable): CC: Dr. Marta Koehler MD ~ Signed [facility] Work Phone: 1(397) 717-600803-10-[address] Frazier [facility] January 17, 2023 9:47pm Note Date/Time January 17, 2023 9:4 0pm [facility] Medical Records Department [address] [place] [address] Emergency Department Summary 01/17/23 MR#: [id number] Acct: [id number] Name: EVERTON BEATTY Rep #:[id number] : 1945 77 From: Mitchell Frazier MD PCP: Dr. Marta Koehler MD Status:RE G ER Location: ED HPI History of Present Illness Chief Complaint: Abn Labs Detail of Chief Complaint: Hyperkalemia and increased creatinine Informant: patient, spouse/S.O., family and PCP Onset/Context/Timing Onset: Today and Yesterday Context: Sudden Onset Timing: Continuous Quality: Elevated potassium Location: Renal Current Severity: Mild Maximum Severity: Mild Worsened by: Uncertain Relieved by: Nothing Associated Symptoms Associated Symptoms: Decreased urine output Narrative Narrative: Patient is a 77-year-old woman with reported nausea yesterday with decreased urine output. Was seen by PCP. Blood work yesterday revealed a potassium of 5.5. Repeat BMP reveals creatinine of 5.7. Yesterday creatinine was 1.87 with a GFR of 28. Today creatinine is 2.22 with a GFR of 22. Patient BUN and creatinine was 16 and 1.28 with a GFR of 43 on November 14, 2022. Patient denies use of salt substitutes. Patient is on no potassium sparing diuretic. She is on Lasix. She has had no change in her diet. Patient denies fever, chills night sweats. Patient denies headache, visual, ocular auditory symptoms. Patient denies cardiac respiratory symptoms. Patient denies dysuria, frequency, urgency or hematuria. Patient admits to 105 pound weight loss due to renal cell carcinoma. She is status post nephrectomy by Dr. Huizar for renal cell carcinoma. Prior similar symptoms: Yes Recent Illness/Hospitalization: No PFSH PFSH Medical History Anemia Arthritis Asthma BiPAP (biphasic positive airway pressure) dependence Cervical spondylosis Constipation Depression Diabetes Fibromyalgia Former smoker GERD (gastroesophageal reflux disease) History of asthma History of back problems History of diabetic neuropathy History of hypothyroidism History of type 1 diabetes mellitus Hypertension IBS (irritable bowel syndrome) Lipodermatosclerosis Nausea Obesity Psoriatic arthritis Renal cell carcinoma Rosacea Sleep apnea SOB (shortness of breath) Wears glasses Home Medications calcium carbonate 600 mg calcium (1,500 mg) tablet 600 mg PO DAILY SUPPLEMENT 02/05/18 [History Last Taken Unknown] cetirizine 10 mg tablet 10 mg PO DAILY Check with primary doctor 02/05/18 [History Last Taken 11/13/22] coenzyme Q10 100 mg-vitamin E 10 unit capsule 1 ea PO DAILY Check with primary doctor 02/05/18 [History Last Taken Unknown] insulin glargine 100 unit/mL (3 mL) subcutaneous pen 45 units subcut 1000 Check with primary doctor 02/05/18 [History Last Taken Unknown] levocetirizine 5 mg tablet 5 mg PO DAILY Check with primary doctor 02/05/18 [History Last Taken Unknown] levothyroxine 175 mcg tablet 175 mcg PO SUTUWETHFRSA THYROID 02/05/18 [History Last Taken 07/14/20] mometasone-formoterol HFA 200 mcg-5 mcg/actuation aerosol inhaler 2 puff IH DAILY ASTHMA 02/05/18 [History Last Taken 11/13/22] montelukast 10 mg tablet 10 mg PO DAILY Check with primary doctor 02/05/18 [History Last Taken Unknown] multivitamin with iron 1 ea PO DAILY SUPPLEMENT 02/05/18 [History Last Taken Unknown] potassium chloride 20 mEq tablet,extended release(part/cryst) 20 meq PO LUNCH Check with primary doctor 02/05/18 [History Last Taken Unknown] pravastatin 20 mg tablet 20 mg PO QHS CHOLESTEROL 02/05/18 [History Last Taken Unknown] sitagliptin phosphate 100 mg tablet 100 mg PO DAILY DIABETES 02/05/18 [History Last Taken Unknown] albuterol sulfate 90 mcg/actuation aerosol inhaler 6.7 gm IH Q4H PRN PRN Wheezing 12/08/19 [History Last Taken Unknown] amlodipine 5 mg-benazepril 20 mg capsule 1 tab PO DAILY Check with primary doctor 12/08/19 [History Last Taken 11/13/22] carvedilol phosphate 20 mg capsule,ext.[id number] multiphase 20 mg PO DAILY Check with primary doctor 12/08/19 [History Last Taken 11/13/22] furosemide 40 mg tablet 40 mg PO DAILY PRN WATER PILL 06/26/20 [History Last Taken Unknown] omeprazole 40 mg capsule,delayed release 40 mg PO DAILY Check with primary doctor 06/26/20 [History Last Taken 07/14/20] Miralax 1 dose OTHER DAILY Check with primary doctor 10/30/22 [History Last Taken Unknown] acetaminophen 650 mg tablet 650 mg PO BID Check with primary doctor 10/30/22 [History Last Taken Unknown] melatonin 10 mg capsule 10 mg PO DAILY Check with primary doctor 10/30/22 [History Last Taken Unknown] tramadol 50 mg tablet 50 mg PO BID Check with primary doctor 10/30/22 [History Last Taken Unknown] vortioxetine 10 mg tablet (Trintellix) 10 mg PO DAILY Check with primary doctor 10/30/22 [History Last Taken Unknown] docusate sodium 100 mg capsule (Colace) 100 mg PO BID #20 caps 11/13/22 [Rx Last Taken Unknown] oxycodone-acetaminophen 5 mg-325 mg tablet 1 tab PO Q6H PRN pain 7 days #14 tabs11/13/22 [Rx Last Taken Unknown] ayxmfq-dyewtonk-ezyxkvo 36,000-114,000-180,000 unit capsule,delay rel (Creon) See Rx Instructions PO .COMPLEX #320 caps 12/25/22 [Rx Last Taken Unknown] scopolamine base 1 mg over 3 days transdermal patch 1 patch transdermal Q3D PRN nausea and vomiting #10 ea 01/06/23 [Rx Last Taken Unknown] ondansetron HCl 4 mg tablet 4 mg PO Q6H #60 tabs 01/09/23 [Rx Last Taken Unknown] promethazine 25 mg rectal suppository 25 mg ME Q6H PRN nausea and vomiting #12 ea 01/09/23 [Rx Last Taken Unknown] Allergy/AdvReac Type Severity Reaction Status Date / Time telithromycin [From Ketek] Allergy Severe Nausea/Vom/ Verified 01/17/23 20:50 Diarrhea Penicillins [PCN] Allergy Swelling Verified 01/17/23 20:50 duloxetine [From Cymbalta] AdvReac Other Verified 01/17/23 20:50 Family History Grandfather Arthritis Father Diabetes Grandmother Heart disease Hypertension Surgical History history bilateral cataract surgery History of cholecystectomy History of hysterectomy History of tubal ligation Social History Smoking Status: Former smoker alcohol intake: never substance use type: does not use ROS ROS ED Constitutional Constitutional ED: Reports sweats and weight loss; Denies chills or fever(s) Eyes Eyes: Denies blurry vision, change in vision or diplopia ENT ENT ED: Denies ear pain, rhinorrhea or sore throat Cardiovascular Cardiovascular: Denies chest pain, orthopnea, palpitations or paroxysmal nocturnal dyspnea Respiratory/Chest Respiratory/Chest: Denies cough, dyspnea, dyspnea on exertion, orthopnea or paroxysmal nocturnal dyspnea Gastrointestinal Gastrointestinal: Reports nausea; Denies abdominal pain, constipation, diarrhea or melena Genitourinary Genitourinary ED: Reports other Details: Patient admits to decreased urine output. ; Denies dysuria, hematuria or urinary frequency Musculoskeletal Musculoskeletal: Reports back pain; Denies arthralgias, myalgias or neck pain Integumentary Denies Abrasions or rash Neurologic Neurologic: Reports weakness; Denies headache(s) or paresthesias Endocrine Endocrinology: Denies cold intolerance or heat intolerance Hematologic/Lymphatic Hematologic/Lymphatic: Reports systems reviewed and no addt'l complaints, exceptas documented EXAM Physical Exam Const Vital Signs: 01/17/23 20:48 01/17/23 20:53 Temperature 98.1 F Temperature Source Temporal Pulse Rate 71 Respiratory Rate 18 Respiratory Effort Normal Non-Labored Respiratory Pattern Normal Blood Pressure 142/43 H Blood Pressure Mean 76 Pulse Ox 97 Oxygen Delivery Method Room Air Positive well nourished, well developed and obese General Appearance ED: well developed, NAD and pallor; Negative for cyanotic or diaphoretic Nutritional Appearance: obese HEENT Reports moist mucous membranes HEENT Narrative: Head is atraumatic normocephalic. Ears normal. Nares patent. Posterior pharynx is normal. Uvula is midline Eyes PERRL and EOMs intact bilaterally General Eye ED: Negative for pale conjunctiva or scleral icterus Neck no lymphadenopathy, supple and no JVD Chest Wall inspection of chest normal and palpation of chest normal Resp normal respiratory effort and clear to auscultation bilaterally Cardio regular rate, regular rhythm, S1 normal heart sound, S2 normal heart sound and no murmurs GI normal to inspection, nondistended, normoactive bowel sounds, non-tender, non-distended and no masses; Negative for hepatosplenomegaly GI Narrative: No palpable pulsatile mass. Back/Spine no CVA tenderness Extremity Negative for normal to inspection Extremity Narrative: Pedal edema that is pitting in nature with minimal changes consistent with venous stasis dermatitis. Swelling is about baseline per patient and family. General Extremety ED: Yes edema General Extremity: edema Neuro oriented x3, CN's II-XII intact bilaterally and no sensory deficits noted Sensorium / Orientation: alert Motor Exam: strength 5/5 throughout Psych mental status grossly normal Skin No no rashes or lesions noted, no wounds and skin turgor normal General Skin Exam: pallor; Negative for elasticity normal or jaundice MDM MDM MDM Narrative Medical decision making narrative: Prior records reviewed. Patient's prior renal function tests were reviewed in the HPI. Patient has acute kidney injury with hyperkalemia. EKG reveals slightly prominent T waves when compared to prior and has a junctional rhythm with a rate of 45. We will treat for hyperkalemia with calcium gluconate, albuterol, 225 and 6 units of insulin. The hyperkalemia order set was initiated. Patient appears pale will obtain CBC to assess for anemia. PGT was obtained and is 137. History & Record Review Discussion w/independent historian: Patient, Significant other and Other (Dr. Dudley who called in prior to patient's arrival.) Additional record(s) reviewed:: Prior inpatient record (Operative note and hospitalization note for nephrectomy for renal cell carcinoma.), Prior outpatient record and Prior labs Lab Data Attestation: I reviewed the patient's lab results. Lab results narrative: BMP was not repeated since it was done several hours at [facility] lab. CBC does reveal anemia with an H&H of 9.8 and 31.2 with normal indices. Patient's H&H on November 14 was 10.6 and 32.3. This is not a significantdifference. Patient does have proteinuria based on laboratory test done earlier today. Labs: Laboratory Results - last 24 hr 01/17/23 21:10 WBC 7.3 RBC 3.41 L Hgb 9.8 L Hct 31.2 L MCV 91.5 MCH 28.7 MCHC 31.4 L RDW Std Deviation 45.8 H RDW Coeff of Za 13.5 Plt Count 187 MPV 11.2 Immature Gran % (Auto) 0.100 Neut % (Auto) 61.1 Lymph % (Auto) 21.5 Iron % (Auto) 9.0 Eos % (Auto) 7.6 H Baso % (Auto) 0.7 Absolute Neuts (auto) 4.4 Absolute Lymphs (auto) 1.56 Nucleated RBC % 0 EKG Initial EKG: Attestation: I personally reviewed and interpreted this EKG as follows: Interpretation: - (Junctional rhythm with a rate of 45. T waves are slightly prominent. This is compared to EKG that was obtained November 14, 2022. Patient was in a sinus rhythm at that time.) Prior: Changed Critical Care Time Critical Care Time: Yes Critical care time (excluding procedures): 30-74 minutes (31), Including time spent: (History, physical, documentation, review of prior records and records from outside source initiation of therapy for hyperkalemia with junctional rhythm), Discussing w/Patient &/or Family/University Administrative Assistant, Discussing w/Consultants and Arranging Admission or Transfer Discharge Plan Dx/Rx/DC Orders Clinical Impression: Acute hyperkalemia, History of type 1 diabetes mellitus, History of hypothyroidism, AV junctional rhythm, Bradycardia with 41-50 beats per minute, Acute kidney injury Disposition Disposition: [facility] What to do if you have Problems For any increased pain, shortness of breath, bleeding, nausea or vomiting, chestpain, or any unexpected problems, contact your Primary Care Provider. Call [facility] ([phone]) or report to the closest Emergency Room. Call 911 if necessary. 01/17/232146 <Electronically signed by Mitchell Frazier MD> Cosigner Signature (if applicable): CC: Dr. Marta Koehler MD ~ Signed [facility] Work Phone: 1(512) 363-961612-27-2022 Hospital Discharge instructionsAmbulatory Orders* 12 Lead EKG [[facility]] Time Frame: 11/05/22, Location: None Selected Additional Instructions Implant Used?: Yes [facility] Work Phone: 1(403) 688-114912-20-2022 Miscellaneous Notes* Telephone Encounter - Opal Donahue RN - 10/29/2022 9:59 AM EST Everton called. Reviewed Dr. Garcia's message with her. She advised that she has already been evaluated by Dr. Huizar and will be having surgery on 11/13/2022. Looked in [facility] and Dr. Huizar's notes are not available. Will send a request for notes. Opal Donahue RN * Telephone Encounter - Isha Albarado RN - 10/29/2022 8:07 AM EST Images from the original note were not included. Call to pt to notify of below. LVM with spouse for pt to call back. Rajesh Garcia MD You 4 days ago I unfortunately found nothing that would answer her questions on endoscopy in the GI tract. She does have what is most likely a renal cancer. She should be following up with urology for that. * Telephone Encounter - Isha Albarado RN - 10/24/2022 10:37 AM EST Pt called in with reports of worsening n/v. Is down 95lbs and states the medications she started atLOV have not been helping. N/V worse in [...] for pt to check BS tomorrow AM sinceher n/v seems to happen only in the AM and pt states it's usually after her Lantus dose. Pt states she will check BS in the morning and if out of range will contact PCP. Please advise pt for any recommendations regarding n/v. documented in this encounterPremier [facility]22 NoteHNO ID: [id number] Author: Rajesh Garcia MD Service: ? Author Type: Physician Type: Progress Notes Filed: 09/26/2022 4:39 PM Note Text: FOLLOW UP VISIT - ENDOSCOPY NAME: Everton Cao alivia [facility] NO.: [id number] DATE OF SERVICE: 09/26/2022 : 1945 REFERRING PHYSICIAN: Marta Koehler MD Everton is a patient I am following for abnormal weight loss. The patient is a 76 year old female referred for endoscopy. Everton notes issues related to alternating between constipation [...] a week ago all her symptoms returned. Everton has undergone prior endoscopy. There went colonoscopy she does not quite remember when this happened. She has never had upper endoscopy. The patient is being seen by me at the request of Dr. Marta Koehler MD for my opinion and advice regarding [...] had a gastric emptying study performed at [facility] which was normal. If her symptoms persist I would consider referring her to the upper GI physiology lab at [facility] to evaluate for esophageal motility issues. You were found to have an adenomatous colon polyp. I recommend you undergo repeat endoscopy in 5 years. If you note bleedi (more content not included)...[facility]11-11-2022 NoteHNO ID: [id number] Author: RT Brittnee(R) Service: ? Author Type: Factory Process [employer] Type: Progress Notes Filed: 09/20/2022 3:58 PM [...] Exam(s) Completed: Kidney and Pelvis SIGNATURE: RT Inocencia(Wojciech) PATIENT NAME: Everton Beatty DATE: September 20, 2022 [facility]: 3:[facility] History of Present illness Narrative* Constance Hunt RT(R) - 09/20/2022 10:40 AM EST Radiology Service Progress Note DATE OF SERVICE: [...] creatinine assay has traceable calibration to isotope dilution- mass spectrometry. Refer to KDIGO guidelines for clinical interpretation. In patients with unstable renal function, e.g. those with acute kidney injury, the eGFRmay not accurately reflect actual GFR. P.O.C.T. RESULTS: POC done: Yes, See Lab Tab September 20, 2022 TREATMENT: N/A PERIPHERAL IV DATA: Ambulatory: A peripheral IV was started in the Left antecubital site with a Angio cath: 18 gauge. RADIOLOGY DEPARTMENT: CT; Exam(s) Completed: Kidney and Pelvis SIGNATURE: RT Inocencia(R) PATIENT NAME: Everton Beatty DATE: September 20, 2022 TIME: 3:57 PM documented in this encounterPremier Health [facility]11-10-2022 History and physical note * Danica Smith MD - 09/19/2022 10:30 AM EST UPDATED HISTORY AND PHYSICAL EXAMINATION SERVICE DATE: 09/19/2022 SERVICE TIME: 9:39 PHYSICAL EXAM MUST BE COMPLETED ON ADMISSION The History and Physical (completed in the past 30 days) has been reviewed and the patient has beenexamined. The contents accurately reflect the patient's condition with the following additions or revisions since the H&P was completed. Examination indicates no changes. This H&P can be found in the Electronic Medical Record . SIGNATURE: Danica Smith MD PATIENT NAME: Everton Beatty DATE: September 19, 2022 TIME: 9:39 AM Source Note - Danica Smith MD - 09/19/2022 10:30 AM EST Images from the original note were not included. HISTORY AND PHYSICAL Everton Beatty 1945 REFERRING PHYSICIAN: No ref. provider found CHIEF COMPLAINT: Consult (Vomiting, diarrhea, constipation for months ) HPI: The patient is a 76 year old female referred for endoscopy. Everton notes issues related to alternating between constipation [...] discomfort if she bends from the waist. Shenotes that as a result she has been [...] 270 to 241 pounds. She is happy wit h her weight loss she feels that this is due to the above symptoms. She was started on Pepcid 20 mg and Nexium 40 mg. She has this was initially helping but then a week ago all her symptoms returned. Everton has undergone prior endoscopy. There went colonoscopy she does not quite remember when this happened. She has never had upper endoscopy. The patient is being seen by me today at the request of Dr. Marta Koehler MD for my opinion and advice regarding [...] unit/mL SUBCUTANEOUS injection Inject subcutaneously. Inject 44 unitsin the AM (Patient taking differently: Inject 50 [...] tabs per week (Patient not taking: Reported on08/29/2022) glimepiride (AMARYL) 4 mg ORAL tablet Take [...] Insulin Syringe-Needle U-100 0.5 mL 31 x 3/8" Misc Syrg once a day (Patient not taking: Reported on04/30/2019 ) blood sugar diagnostic (FREESTYLE LITE STRIPS) Misc test strip TEST BLOOD SUGARS once daily (Patient not taking: Reported on 04/30/2019 ) Azelastine HCl (OPTIVAR) 0.05 % ophthalmic solution 1 Drop as needed. (Patient not taking: Reportedon 08/29/2022) celecoxib (CELEBREX) 200 mg capsule one tablet twice daily (Patient not taking: Reported on 08/29/2022) ranitidine 150 mg ORAL TbEF Take one(1) tablet daily. (Patient not taking: Reported on 08/29/2022) Insulin Syringe-Needle U-100 0.5 mL 31 x 3/8" Misc Syrg use as directed (Patient not taking: No sigreported) Fish Oil-DHA-EPA 1,200-144-216 mg ORAL Cap Take [...] entered by the nurse and reviewed by de Nursing Notes: Ciara Kennedy LPN 08/29/2022 11:24 AM Signed REVIEW OF SYSTEMS: General: The patient denies fatigue, notes weight loss, denies weight gain, denies feeling hot, anddenies feelings of cold. Eyes: The patient denies [...] difficulty swallowing, notes acid reflux, denies ulcers, notesvomiting, denies jaundice/hepatitis, denies gallbladder problems, notes black [...] nourished, well hydrated in no acute distress. Thepatient is oriented to time, place, and person. VITALS: Blood pressure 136/62, pulse 75, temperature 36.6 C (97.8 F), height 160 cm (5' 3"), qznjuu870.3 kg (241 lb), SpO2 95 %. Body mass index is 42.69 kg/m . HEENT: Normal cephalic, ataumatic, pupils are equally round, sclera are anicteric, mucous membranesare moist, oropharynx is clear. Neck has no [...] that complications can occur including failure to completethe endoscopy and perforation. The patient had the [...] scheduled out for endoscopy at [facility] with moderate anesthetic care. Due to the patient anxiety and her concern for malignancy given afriend who had similar presentation I plan obtain a CT scan of the abdomen pelvis to assess for obvious abnormalities prior to endoscopy Diagnoses: (R63.4) Abnormal weight loss (primary encounter diagnosis) (R10.9) Abdominal pain, unspecified abdominal location A letter was sent to Dr. Marta Koehler MD indicating the above finding for this patient. Return to Clinic: The patient is instructed to follow-up with me after the testing has been completed. Rajesh Garcia MD * Danica Smith MD - 09/19/2022 10:30 AM EST Images from the original note were not included. HISTORY AND PHYSICAL Everton Beatty 1945 REFERRING PHYSICIAN: No ref. provider found CHIEF COMPLAINT: Consult (Vomiting, diarrhea, constipation for months ) HPI: The patient is a 76 year old female referred for endoscopy. Everton notes issues related to alternating between constipation [...] discomfort if she bends from the waist. Shenotes that as a result she has been [...] 270 to 241 pounds. She is happy wit h her weight loss she feels that this is due to the above symptoms. She was started on Pepcid 20 mg and Nexium 40 mg. She has this was initially helping but then a week ago all her symptoms returned. Everton has undergone prior endoscopy. There went colonoscopy she does not quite remember when this happened. She has never had upper endoscopy. The patient is being seen by me today at the request of Dr. Marta Koehler MD for my opinion and advice regarding [...] unit/mL SUBCUTANEOUS injection Inject subcutaneously. Inject 44 unitsin the AM (Patient taking differently: Inject 50 [...] tabs per week (Patient not taking: Reported on08/29/2022) glimepiride (AMARYL) 4 mg ORAL tablet Take [...] Insulin Syringe-Needle U-100 0.5 mL 31 x 3/8" Misc Syrg once a day (Patient not taking: Reported on04/30/2019 ) blood sugar diagnostic (FREESTYLE LITE STRIPS) Misc test strip TEST BLOOD SUGARS once daily (Patient not taking: Reported on 04/30/2019 ) Azelastine HCl (OPTIVAR) 0.05 % ophthalmic solution 1 Drop as needed. (Patient not taking: Reportedon 08/29/2022) celecoxib (CELEBREX) 200 mg capsule one tablet twice daily (Patient not taking: Reported on 08/29/2022) ranitidine 150 mg ORAL TbEF Take one(1) tablet daily. (Patient not taking: Reported on 08/29/2022) Insulin Syringe-Needle U-100 0.5 mL 31 x 3/8" Misc Syrg use as directed (Patient not taking: No sigreported) Fish Oil-DHA-EPA 1,200-144-216 mg ORAL Cap Take [...] entered by the nurse and reviewed by me Nursing Notes: Ciara Kennedy LPN 08/29/2022 11:24 AM Signed REVIEW OF SYSTEMS: General: The patient denies fatigue, notes weight loss, denies weight gain, denies feeling hot, anddenies feelings of cold. Eyes: The patient denies [...] difficulty swallowing, notes acid reflux, denies ulcers, notesvomiting, denies jaundice/hepatitis, denies gallbladder problems, notes black [...] nourished, well hydrated in no acute distress. Thepatient is oriented to time, place, and person. VITALS: Blood pressure 136/62, pulse 75, temperature 36.6 C (97.8 F), height 160 cm (5' 3"), cumjkc851.3 kg (241 lb), SpO2 95 %. Body mass index is 42.69 kg/m . HEENT: Normal cephalic, ataumatic, pupils are equally round, sclera are anicteric, mucous membranesare moist, oropharynx is clear. Neck has no [...] that complications can occur including failure to completethe endoscopy and perforation. The patient had the [...] scheduled out for endoscopy at [facility] with moderate anesthetic care. Due to the patient anxiety and her concern for malignancy given afriend who had similar presentation I plan obtain a CT scan of the abdomen pelvis to assess for obvious abnormalities prior to endoscopy Diagnoses: (R63.4) Abnormal weight loss (primary encounter diagnosis) (R10.9) Abdominal pain, unspecified abdominal location A letter was sent to Dr. Marta Koehler MD indicating the above finding for this patient. Return to Clinic: The patient is instructed to follow-up with me after the testing has been completed. Rajesh Garcia MD documented in this encounterPremier Health [facility]11-10-2022 Surgical operation note* Brief Op Note - Danica Smith MD - 09/19/2022 10:30 AM EST BRIEF OPERATIVE NOTE SURGERY DATE: 09/19/2022 Incision/Procedure Start Time: 10:20 cecal intubation time: 10:38 Incision Close/Procedure End Time: 10:51 Surgeon(s)/Proceduralist(s) and Sports Book Server(s): Luis Procedures: EGD with biopsies Colonoscopy with [...] hemorrhoids SIGNATURE: Danica Smith MD PATIENT NAME: Everton Beatty DATE: September 19, 2022 TIME: 10:52 AM Acct: [id number] documented in this encounterPremier Health [facility]11-08-2022 Miscellaneous Notes* Telephone Encounter - Rajesh Garcia MD - 09/17/2022 5:48 PM EST Renal ultrasound demonstrated suspicion of solid mass worrisome for renal cell carcinoma. Attemptedto call patient with results. Got voicemail. We will plan to refer patient to urology for evaluation. We will have office staff try to let patient know that there was a solid mass in the kidney and that I would refer to urology if unable to get hold of her. Thanks-Rich documented in this encounterPremier Health [facility]11-08-2022 Miscellaneous Notes* Telephone Encounter - Ciara Kennedy LPN - 09/17/2022 4:33 PM EST Patient called back, updated per Dr Garcia to go ahead with colonoscopy prep and Dr Garcia will call patient later this evening. Patient voiced understanding. Ciara Kennedy LPN * Telephone Encounter - Opal Donahue RN - 09/17/2022 2:04 PM EST Brandi Rm 14 minutes ago (1:48 PM) [...] advise. Thank you! Brandi Rm Spoke with Everton. Reviewed Dr. Garcia's message. Everton advised that she had the renal ultrasound completed on September 13, showing "5.8 cm left renal mass suspicious for a renal cell carcinoma". Everton is to start her bowel prep this afternoon for her colonoscopy tomorrow. She has concerns about proceeding with the colonoscopy and wants to you if you think it is okay. Opal Donahue RN * Telephone Encounter - Opal Donahue RN - 09/12/2022 9:16 AM EDT Images from the original note were not included. Rajesh Garcia MD You Please let the patient know that they did see her likely renal cyst on the CAT scan and they are recommending a renal ultrasound. I ordered a left renal ultrasound. Please call the patient to let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 unintentional Chief Complaint PREOP LT LAP ROBOTIC RADICAL NEPHRECTOMY CP Consult HYPERKALEMIA, MICHAEL, Reason for Visit Abdominal pain Nausea & vomiting Weight loss, unintentional Acute hyperkalemia Acute kidney injury AV junctional rhythm Bradycardia with 41-50 beats per minute History of hypothyroidism History of type 1 diabetes mellitus Chief Complaint PREOP LT LAP ROBOTIC RADICAL NEPHRECTOMY CP Consult HYPERKALEMIA, MICHAEL, JUNCTIONAL RHYTHM HYPERKALEMIA, MICHAEL, JUNCTIONAL RHYTHM HYPERKALEMIA, MICHAEL, JUNCTIONAL RHYTHM Reason for Visit Abdominal pain Nausea & vomiting Weight loss, unintentional Acute hyperkalemia Acute kidney injury Anemia AV junctional rhythm Bradycardia with 41-50 beats per minute Clear cell carcinoma of left kidney Diabetes mellitus, type 2 History of hypothyroidism Pancreatic insufficiency Psoriatic arthritis Solitary kidney, acquired Acute kidney injury superimposed on CKD CKD (chronic kidney disease) stage 4, GFR 15-29 ml/min Hypertension Weight loss, unintentional Chief Complaint PREOP LT LAP ROBOTIC RADICAL NEPHRECTOMY CP Consult HYPERKALEMIA, MICHAEL, JUNCTIONAL RHYTHM HYPERKALEMIA, MICHAEL, JUNCTIONAL RHYTHM EKG HYPERKALEMIA, MICHAEL, JUNCTIONAL RHYTHM Reason for Visit Abdominal pain Nausea & vomiting Anemia Psoriatic arthritis Acute kidney injury superimposed on CKD Acute hyperkalemia Acute kidney injury Chief Complaint PREOP LT LAP ROBOTIC RADICAL NEPHRECTOMY CP Consult HYPERKALEMIA, MICHAEL, JUNCTIONAL RHYTHM HYPERKALEMIA, MICHAEL, JUNCTIONAL RHYTHM EKG HYPERKALEMIA, MICHAEL, JUNCTIONAL RHYTHM EORDER Reason for Visit Abdominal pain Nausea & vomiting Anemia Psoriatic arthritis Acute kidney injury superimposed on CKD Acute hyperkalemia Acute kidney injury Chief Complaint LT LAP ROBOTIC RADIC AL NEPHRECTOMY CP Consult HYPERKALEMIA, MICHAEL, JUNCTIONAL RHYTHM HYPERKALEMIA, MICHAEL, JUNCTIONAL RHYTHM EKG HYPERKALEMIA, MICHAEL, JUNCTIONAL RHYTHM EORDER 3 MO FU Reason for Visit Abdominal pain Nausea & vomiting Anemia Psoriatic arthritis Acute kidney injury superimposed on CKD Acute hyperkalemia Acute kidney injury Exocrine pancreatic insufficiency Chief Complaint EORDER 3 MO FU CHRONIC KIDNEY DISEASE Reason for Visit Exocrine pancreatic insufficiency Chief Complaint CHRONIC KIDNEY DISEA SE Chief Complaint 5 MO FU Reason for Visit Exocrine pancreatic insufficiency Chief Complaint 3 DRS/ 3 ORDERS Malignant neoplasm of left kidney, except renal pe Chief Complaint 3 DRS/ 3 ORDERS Malignant neoplasm of left kidney, except renal pe EORDER Chief Complaint 3 DRS/ 3 ORDERS Malignant neoplasm of left kidney, except renal pe EORDER ADD OLIVER ORDER Chief Complaint Admit Date Vomiting after eating September 27 10:57am GAY September 29, 2024 6:53am GAY September 29, 2024 6:18pm Amb Documentation September 30, 2024 8:09am N/V October 19, 2024 8:53am EORDER October 25, 2024 2:30pm CORTISOL STIM TEST December 01, 2024 8 :26am 8 WK FU December 02, 2024 1 2:26pm Reason for Visit Admit Date Constipation September 27, 2024 10:57am GERD (gastroesophageal reflux disease) N ovember 2023 10:57am Pancreatic insufficiency September 27, 2024 10:57am Nausea & vomiting September 27, 2024 10:57am Nausea & vomiting December 02, 2024 1 2:26pm Chief Complaint Admit Date EORDER October 25, 2024 2:30pm CORTISOL STIM TEST December 01, 2024 8 :26am 8 WK FU December 02, 2024 1 2:26pm Reason for Referral Specialty Diagnoses / Procedures Referred By Contac t Referred To Contact Urology Diagnoses Renal mass Procedures CONSULT TO UROLOGY Rajesh Garcia MD [address] [place] [address] [facility] [address] [place] [address] Referral ID Status Reason Start Date Expiration Date Visits Requested Visits Authorized [id number] Ref Not Required PCP Requested Referral 09/17/2022 09/17/2023 1 1 Specialty Diagnoses / Procedures Referred By [facility] t Referred To Contact CT IMAGING Diagnoses Other specified disorders of kidney and ureter Procedures CT KIDNEY WO/W IVCON CT ABDOMEN W & W/O CONTRAST Omari Rocha, [address] [place] [address] Ct Imaging Referral ID Status Reason Start Date Expiration Date Visits Requested Visits Authorized [id number] Pending Review Auto-Generat ed Referral 10/17/2023 1 1 Specialty Diagnoses / Procedures Referred By [facility] t Referred To Contact CT IMAGING Diagnoses Abnormal weight loss Procedures CT KIDNEY/PELVIS WO/W IVCON CT ABD & PELVIS W/O CONTRST 1+ BODY Rajesh Rodriguez MD [address] [facility] [place] [address] Ct Imaging Referral ID Status Reason Start Date Expiration Date Visits Requested Visits Authorized [id number] Pending Review Auto-Generat ed Referral 09/18/2022 10/18/2023 1 1 Specialty Diagnoses / Procedures Referred By [facility] t Referred To Contact CT IMAGING Diagnoses Abnormal weight loss Procedures CT KIDNEY/PELVIS WO/W IVCON CT ABD & PELVIS W/O CONTRST 1+ BODY Rajesh Rodriguez MD [address] [facility] [place] [address] [place] [id number] Referral ID Status Reason Start Date Expiration Date V isits Requested Visits Authorized [id number] Closed Auto-Generate d Referral 09/18/2022 10/18/2023 1 [...] Anesthesia 09/19/2022 10:15 AM EST 75 mL/hr New Bag/Syringe/Bottle 09/19/2022 9:45 AM EST 75 mL/hr 7 5 mL/hr ondansetron (PF) 4 mg injection (ZOFRAN) 4 mg, INTRAVENOUS, ONCE, 1 dose, On Ann 09/19/22 at 1000, Give IV push over 2 minutes, Preprocedure Given 09/19/2022 9:48 AM EST 4 mg Additional Source Comments Scheduled Active and Recently Administ ered Medications (unrecognized section and content) Medication Order 04/03/2021 04/04/2021 04/05/2021 acetaminophen (TYLENOL) tablet 1,000 mg (COMPLETED) 1,000 mg, Oral, ONCE, On Fri04/04/21 at 0900, For 1 dose, Maximum dose of acetaminophen is 4000 mg from all sources in 24 hours. Do not administer if patient has taken tylenol <4 hours earlier. Do not give if contraindicated ie. patient has active liver disease or cirrhosis., Pre-op (day of surgery) 09 (Given - Provider: Radha Haines RN - Comment: took percocet with tylenol at 0600) acetaminophen (TYLENOL) tablet 1,000 mg 1,000 mg, Oral, 3 TIMES DAILY, First dose on Fri04/04/21 at 1430, Maximum dose of acetaminophen is 4000 mg from all sources in 24 hours., PACU & Post-op 1534 (Given - Provider: Jose Ballesteros V RN)2122 (Given - Provider: Jackie Mccauley RN) 0647 (Given - Provider: Jackie Mccauley RN)1400 (Due)2200 (Due) amLODIPine (NORVASC) tablet 5 mg(Linked Group 1) 5 mg, Oral, DAILY, First dose on Fri04/04/21 at 1515 2123 (Given - Provider: Jackie Mccauley RN) 0904 (Given - Provider: Ciara Garcia RN) aprepitant (EMEND) capsule 40 mg (COMPLETED) 40 mg, Oral, ONCE, On Fri04/04/21 at 0945, For 1 dose, Pre-op (day of surgery), STAT 0930 (Given - Provider: Radha Haines RN) bisacodyl (DULCOLAX) EC tablet 5 mg 5 mg, Oral, DAILY, First dose on Fri04/04/21 at 1500, Do not crush or break., Post-op 1647 (Given - Provider: Marisol Taylor RN) 0858 (Given - Provider: Ciara Garcia, CHRISTIAN) calcium elemental (OSCAL) tablet 500 mg 500 mg, Oral, DAILY, First dose on Fri04/04/21 at 1500 1646 (Given - Provider: Marisol Taylor RN) 0915 (Not Given - Provider: Ciara Garcia RN - Reason: Patient/family refused) carvedilol (COREG) tablet 6.25 mg 6.25 mg, Oral, 2 TIMES DAILY, First dose on Fri04/04/21 at 2100, Substituted for Carvedilol ER (COREG CR) Administer with food to minimize the risk of orthostatic hypotension 2122 (Given - Provider: Jackie Mccauley RN) 0920 (Given - Provider: Ciara Garcia RN)2100 (Due) ceFAZolin (ANCEF) 3,000 mg in dextrose 5 % 100 mL IVPB (COMPLETED) 3,000 mg, Intravenous, INSTITUTIONAL AIDE TO O.R., 1 dose, On Fri04/04/21 at 0900, Administer within 1 hour prior to incision. Recommend to repeat in 3-4 hours after initial dose if still intra-op., Pre-op (day of surgery) 1000 (Given by Other Clinician - Provider: Carmen August RN - Comment: OR)1030 (Stopped - Provider: Carmen August RN) ceFAZolin (ANCEF) 3,000 mg in dextrose 5 % 100 mL IVPB (COMPLETED) 3,000 mg, Intravenous, EVERY 8 HOURS, 2 doses, First dose on Fri04/04/21 at 1800, Last dose on Ann 04/05/21 at 0200, Post-op 1841 (New Bag - Provider: Marisol Taylor RN)1920 (Stopped - Provider: Jackie Mccauley RN) 0230 (New Bag - Provider: Jackie Mccauley RN)0301 (Stopped - Provider: Jackie Mccauley RN) cetirizine (ZYRTEC) tablet 10 mg 10 mg, Oral, DAILY, First dose on Fri04/04/21 at 1500 1647 (Given - Provider: Marisol Taylor RN) 0915 (Not Given - Provider: iCara Garcia RN - Reason: Patient/family refused) famotidine (PEPCID) tablet 20 mg (COMPLETED) 20 mg, Oral, ONCE, On Fri04/04/21 at 0900, For 1 dose, Pre-op (day of surgery) 0919 (Given - Provider: Radha Haines RN) gabapentin (NEURONTIN) capsule 400 mg 400 mg, Oral, DAILY, First dose on Fri04/04/21 at 1500 1535 (Given - Provider: Jose King RN) 0916 (Given - Provider: Ciara Garcia RN) insulin glargine (LANTUS) injection vial 12 Units 12 Units, Subcutaneous, NIGHTLY, First dose on Fri04/04/21 at 2330 0000 (Given - Provid er: Jackie Mccauley RN)2100 (Due) insulin glargine (LANTUS) injection vial 50 Units 50 Units, Subcutaneous, DAILY, First dose on Fri04/04/21 at 1500 2100 (Not Given - Provider: Jackie Mccauley RN - Reason: Patient took at home - Comment: reports taken 38 unit this AM) 0904 (Given - Provider: Ciara Garcia RN - Comment: [phone]) insulin lispro (HUMALOG) injection vial 0-3 Units 0-3 Units, Subcutaneous, NIGHTLY, First dose on Fri04/04/21 at 2330, If continuous tube feedings/TPN/NPO, give correction dose based on result, no reduction in dose. If eating or bolus tube feeding: Corrective Bedtime (50%) Low Dose Algorithm Glucose: Dose: 70-139 No Insulin 140-249 1 Unit 250-349 2 Units Over 350 3 Units 0000 (Not Given - Provider: Jackie Mccauley RN - Reason: Patient/family refused)2100 (Due) insulin lispro (HUMALOG) injection vial 0-6 Units 0-6 Units, Subcutaneous, 3 TIMES DAILY WITH MEALS, First dose on Fri04/05/21 at 0800, Corrective Low Dose Algorithm Glucose: Dose: 70-139 No Insulin 140-199 1 Unit 200-249 2 Units 250-299 3 Units 300-349 4 Units 350-399 5 Units Over 399 6 Units 0905 (Given - Provid er: Ciara Garcia RN - Comment: [phone] (Given - Provider: Ciara Garcia RN - Comment: [phone] (Due) levothyroxine (SYNTHROID) tablet 200 mcg 200 mcg, Oral, DAILY, First dose on Fri04/04/21 at 1500, Tube feeding (TF) interaction, obtain physician order to manage, recommend holding TF for 30 minutes before and after dose. 1635 (Not Given - Provider: Marisol Taylor RN - Reason: Patient/family refused - Comment: pt already took today) 0900 (Given - Provider: Ciara Garcia RN) lidocaine 4 % external patch 1 patch 1 patch, Transdermal, Administer over 12 Hours, DAILY, First dose on Fri04/04/21 at 1445, Substituted for Lidocaine 5% Patch., PACU & Post-op 1645 (Patch Applied - Provider: Marisol Taylor RN) 0400 (Patch Removed - Provider: Jackie Mccauley RN)0903 (Not Given - Provider: Ciara Garcia RN - Reason: Patient/family refused) linagliptin (TRADJENTA) tablet 5 mg 5 mg, Oral, DAILY, First dose on Fri04/04/21 at 1515, Therapeutic substitution for sitagliptin 1647 (Given - Provider: Marisol Taylor RN) 0920 (Given - Provider: Ciara Garcia RN) lisinopril (PRINIVIL;ZESTRIL) tablet 20 mg(Linked Group 1) 20 mg, Oral, DAILY, First dose on Fri04/04/21 at 1515 2124 (Given - Provider: Jackie Mccauley RN) 0900 (Given - Provider: Ciara Garcia RN) methocarbamol (ROBAXIN) tablet 500 mg 500 mg, Oral, 2 TIMES DAILY, First dose on Fri04/04/21 at 2100 2125 (Not Given - Provider: Jackie Mccauley RN - Reason: Patient/family refused) 0859 (Given - Provider: Ciara Garcia RN)2099 (Due) mometasone-formoterol (DULERA) 200-5 MCG/ACT inhaler 2 puff 2 puff, Inhalation, EVERY 12 HOURS, First dose on Fri04/04/21 at 1500, Rinse mouth out with water (without swallowing) after every dose. 2128 (Given - Provider: Jackie Mccauley RN) 09 (Given - Provider: Ciara Garcia RN)2129 (Due - Provider: Robyn Buckner [facility]) montelukast (SINGULAIR) tablet 10 mg 10 mg, Oral, NIGHTLY, First dose on Fri04/04/21 at 2100 2121 (Given - Provider: Jackie Mccauley RN) 2099 (Due) multivitamin 1 tablet 1 tablet, Oral, DAILY, First dose on Fri04/04/21 at 1500 1647 (Given - Provider: Marisol Taylor RN) 0900 (Given - Provider: Ciara Garcia RN) polyethylene glycol (GLYCOLAX) packet 17 g 17 g, Oral, DAILY, First dose on Fri04/04/21 at 1500, Post-op 2124 (Not Given - Provider: Jackie Mccauley RN - Reason: Patient/family refused) 09 (Given - Provider: Ciara Garcia RN) potassium chloride (KLOR-CON) packet 10 mEq 10 mEq, Oral, DAILY, First dose on Fri04/04/21 at 1500, Dilute with at least 4 ounces of cold water. May further dilute if GI adverse effects occur. 2130 (Not Given - Provider: Jackie Mccauley RN - Reason: Patient/family refused) 09 (Not Given - Provider: Ciara Garcia RN - Reason: Patient/family refused) pravastatin (PRAVACHOL) tablet 20 mg 20 mg, Oral, DAILY, First dose on Fri04/04/21 at 1500 1646 (Given - Provider: Marisol Taylor RN) 0859 (Given - Provider: Ciara Garcia RN) sodium chloride flush 0.9 % injection 5-40 mL 5-40 mL, Intravenous, EVERY 12 HOURS SCHEDULED (2 times per day), First dose on Fri04/04/21 at 2100, For Line Patency: Peripheral IV = 5 mL; Midline or Central Line = 10 mL/lumen. If following IV push medication, administer flush at same rate as the IV push. Flush volume is determined by type of infusion therapy being given. For non-viscous solutions use: Peripheral IV = 5 mL Midline or Central Line = 10 mL/lumen For viscous solutions (i.e. blood components, parenteral nutrition, contrast media, or after obtaining blood sample) use: Peripheral IV = 10 mL Midline or Central Line = 20 mL/lumen, Post-op 2125 (Not Given - Provider: Jackie Mccauley RN - Reason: IV Fluid Infusing) 0907 (Given - Provider: Ciara Garcia RN)2100 (Due) trospium (SANCTURA) tablet 20 mg 20 mg, Oral, 2 TIMES DAILY BEFORE MEALS, First dose on Fri04/04/21 at 1600, Give on empty stomach. Substituted for Tolterodine (DETROL). 1646 (Given - Provider: Marisol Taylor RN) 0900 (Given - Provider: Ciara Garcia RN)1600 (Due) vitamin D (CHOLECALCIFEROL) tablet 2,000 Units 2,000 Units, Oral, DAILY, First dose on Fri04/04/21 at 1500 1646 (Given - Provider: Marisol Taylor RN) 0916 (Not Given - Provider: Ciara Garcia RN - Reason: Patient/family refused) Continuous Medication Order 04/03/2021 04/04/2021 04/05/2021 lactated ringers infusion (CANCELED) Intravenous, at 50 mL/hr, CONTINUOUS, Starting on Fri04/04/21 at 0900, Upon admission to sameday - please start iv if patient does not have iv access. Use 500ml NS for patients on dialysis., Pre-op (day of surgery) 0920 (New Bag - Provider: Vargas RN)1256 (New Bag - Provider: Donna Last RN)1638 (Stopped - Provider: Marisol Taylor RN) PRN [...] RN - Comment: ok to give by FLORA Paige) HYDROmorphone (DILAUDID) injection 0.5 mg (CANCELED) [...] PACU only 1228 (Given - Provider: Carmen E Geopfert, RN) ondansetron (ZOFRAN) injection 4 mg(Linked Group [...] ized section and content) DATE CREATED AUTHOR 07/02/2021 [facility] DATE CREATED AUTHOR AUTHOR'S ORGANIZ ATION 09/25/2022 [facility] DATE CREATED AUTHOR AUTHOR'S ORGANIZ ATION 09/27/2022 [facility] DATE CREATED AUTHOR AUTHOR'S ORGANIZ ATION 03/18/2025 [facility] Goals (unrecognized section and content) Goals may be documented in a n alternate sectionGoals may be documented in an alternate sectionGoals may be documented in an alternate sectionGoals may be documented in an alternate sectionGoals may be documented in an alternate sectionGoals may be documented in an alternate sectionGoals may be documented in an alternate sectionGoals may be documented in an alternate sectionGoals may be documented in an alternate sectionGoals may be documented in an alternate sectionGoals may be documented in an alternate sectionGoals may be documented in an alternate sectionGoals may be documented in an alternate sectionGoals may be documented in an alternate sectionGoals may be documented in an alternate sectionGoals may be documented in an alternate sectionGoals may be documented in an alternate sectionGoals may be documented in an alternate sectionGoals may be documented in an alternate sectionGoals may be documented in an alternate section Source Comments (unrecognize d section and content) In the event this informatio n is protected by the Federal Confidentiality of Alcohol and Drug Abuse Patient Records regulations: The Federal rules restrict any use of the information to criminally investigate or prosecute any alcohol or drug abuse patient.[facility] the event this information is protected by the Federal Confidentiality of Alcohol and Drug Abuse Patient Records regulations: The Federal rules restrict any use of the information to criminally investigate or prosecute any alcohol or drug abuse patient.[facility] NorthIn the event this information is protected by the Federal Confidentiality of Alcohol and Drug Abuse Patient Records regulations: The Federal rules restrict any use of the information to criminally investigate or prosecute any alcohol or drug abuse patient.[facility] NorthIn the event this information is protected by the Federal Confidentiality of Alcohol and Drug Abuse Patient Records regulations: The Federal rules restrict any use of the information to criminally investigate or prosecute any alcohol or drug abuse patient.[facility] NorthIn the event this information is protected by the Federal Confidentiality of Alcohol and Drug Abuse Patient Records regulations: The Federal rules restrict any use of the information to criminally investigate or prosecute any alcohol or drug abuse patient.[facility] NorthIn the event this information is protected by the Federal Confidentiality of Alcohol and Drug Abuse Patient Records regulations: The Federal rules restrict any use of the information to criminally investigate or prosecute any alcohol or drug abuse patient.[facility] NorthIn the event this information is protected by the Federal Confidentiality of Alcohol and Drug Abuse Patient Records regulations: The Federal rules restrict any use of the information to criminally investigate or prosecute any alcohol or drug abuse patient.[facility] NorthIn the event this information is protected by the Federal Confidentiality of Alcohol and Drug Abuse Patient Records regulations: The Federal rules restrict any use of the information to criminally investigate or prosecute any alcohol or drug abuse patient.[facility] NorthIn the event this information is protected by the Federal Confidentiality of Alcohol and Drug Abuse Patient Records regulations: The Federal rules restrict any use of the information to criminally investigate or prosecute any alcohol or drug abuse patient.[facility] NorthIn the event this information is protected by the Federal Confidentiality of Alcohol and Drug Abuse Patient Records regulations: The Federal rules restrict any use of the information to criminally investigate or prosecute any alcohol or drug abuse patient.[facility] NorthIn the event this information is protected by the Federal Confidentiality of Alcohol and Drug Abuse Patient Records regulations: The Federal rules restrict any use of the information to criminally investigate or prosecute any alcohol or drug abuse patient.[facility] NorthIn the event this information is protected by the Federal Confidentiality of Alcohol and Drug Abuse Patient Records regulations: The Federal rules restrict any use of the information to criminally investigate or prosecute any alcohol or drug abuse patient.[facility] NorthIn the event this information is protected by the Federal Confidentiality of Alcohol and Drug Abuse Patient Records regulations: The Federal rules restrict any use of the information to criminally investigate or prosecute any alcohol or drug abuse patient.[facility] NorthIn the event this information is protected by the Federal Confidentiality of Alcohol and Drug Abuse Patient Records regulations: The Federal rules restrict any use of the information to criminally investigate or prosecute any alcohol or drug abuse patient.[facility] Reason for Visit (unrecogniz ed section and content) Reason Comments Refill Request Reason Comments Consult Vomiting, diarrhea, constipation for months Specialty Diagnoses / Procedures Referred By Contac t Referred To Contact CT IMAGING Diagnoses Abnormal weight loss Abdominal pain, unspecified abdominal location Procedures CT ABD/PEL WO IVCON CT ABD & PELVIS W/O CONTRAST Rajesh Garcia MD [address] [place] [address] Ct Imaging Referral ID Status Reason Start Date Expiration Date V isits Requested Visits Authorized [id number] Closed Auto-Generate d Referral 08/29/2022 09/28/2023 1 1 Reason Comments Patient Question Colonoscopy prep Reason Comments Results Reason Comments 09/19/2022 COLON/EGD LODI Reason Comments Patient Update N/V Reason Comments Radiology CT Specialty Diagnoses / Procedures Referred By Contac t Referred To Contact CT IMAGING Diagnoses Abnormal weight loss Procedures CT KIDNEY/PELVIS WO/W IVCON CT ABD & PELVIS W/O CONTRST 1+ BODY REGNS Rajesh Garcia MD [address] [place] [address] [place] [address] Referral ID Status Reason Start Date Expiration Date V isits Requested Visits Authorized [id number] Closed Auto-Generate d Referral 09/18/2022 10/18/2023 1 1 Specialty Diagnoses / Procedures Referred By Contac t Referred To Contact CT IMAGING Diagnoses Abnormal weight loss Abdominal pain, unspecified abdominal location Procedures CT ABD/PEL WO IVCON CT ABD & PELVIS W/O CONTRAST Rajesh Garcia MD [address] [place] [address] [place] [address] Reason Comments Radiology US Specialty Diagnoses / Procedures Referred By Contac t Referred To Contact US IMAGING Diagnoses Abnormal weight loss Abdominal pain, unspecified abdominal location Procedures US KIDNEY/BLADDER US RETROPERITONEAL REAL TIME W/IMAGE COMPLETE Rajesh Garcia MD [address] [place] [address] [place] [address] Referral ID Status Reason Start Date Expiration Date V isits Requested Visits Authorized [id number] Closed Auto-Generate d Referral 09/11/2022 10/11/2023 1 1 Care Teams (unrecognized sec tion and content) [employer] Relationship Specialty Start Date End Date Coral Lima PCP - General Family Practice 11/19/16 [employer] Relationship Specialty Start Date End Date Marta Koehler [address] [place] [address] PCP - General Family Medicine 03/21/22 [employer] Relationship Specialty Start Date End Date Marta Koehler [address] [place] [address] PCP - General Family Medicine 03/21/22 [employer] Relationship Specialty Start Date End Date Marta Koehler [address] [place] [address] PCP - General Family Medicine 03/21/22 [employer] Relationship Specialty Start Date End Date Marta Koehler [address] [place] [address] PCP - General Family Medicine 03/21/22 [employer] Relationship Specialty Start Date End Date Marta Koehler [address] [place] [address] PCP - General Family Medicine 03/21/22 [employer] Relationship Specialty Start Date End Date Marta Koehler [address] [place] [address] PCP - General Family Medicine 03/21/22 [employer] Relationship Specialty Start Date End Date Marta Koehler [address] [place] [address] PCP - General Family Medicine 03/21/22 [employer] Relationship Specialty Start Date End Date Marta Koehler [address] [place] [address] PCP - General Family Medicine 03/21/22 [employer] Relationship Specialty Start Date End Date Marta Koehler [address] [place] [address] PCP - General Family Medicine 03/21/22 [employer] Relationship Specialty Start Date End Date Marta Koehler [address] [place] [address] PCP - General Family Medicine 03/21/22 Team Status: Active Member Role Status Dates Dr. Coral Lima MD Family Provider Active Dr. Marta Koehler MD Primary Care Provider Active Team Status: Inactive Member Role Status Dates Dr. Marta Koehler MD Primary Care Provider, Referr ing Provider Active Dr. Marco Chin DO Attending Provider Active Team Status: Active Member Role Status Dates Dr. aMrta Koehler MD Primary Care Provider Active Dr. Sunny Landin MD Attending Provider Active Dr. Bon Raines MD Referring Provider Active Team Status: Active Member Role Status Dates Dr. Marta Koehler MD Primary Care Provider Active Dr. Alla De Anda MD Attending Provider Activ e Dr. Matty Huizar MD Referring Provider Active Team Status: Inactive Member Role Status Dates Dr. Marta Koehler MD Primary Care Provider Active Dr. Randee Driver MD Attending Provider Active Team Status: Inactive Member Role Status Dates Dr. Marta Koehler MD Primary Care Provider Active Dr. Matty Huizar MD Admit Provid er, Attending Provider, Referring Provider Active Team Status: Inactive Member Role Status Dates Dr. Marta Koehler MD Primary Care Pr ovider, Attending Provider, Referring Provider Active Team Status: Inactive Member Role Status Dates Dr. Marta Koehler MD Primary Care Provider Active Dr. Marco Chin DO Attending Provider, Referring Provider Active Team Status: Active Member Role Status Dates Dr. Marta Koehler MD Primary Care Provider Active Dr. Marco Chin DO Attending Provider, Referring Provider Active Team Status: Active Member Role Status Dates Dr. Marta Koehler MD Primary Care Pr ovider, Attending Provider, Referring Provider Active Team Status: Active Member Role Status Dates Dr. Marta Koehler MD Primary Care Provider Active Dr. Mitchell Frazier MD Emergency Provider Active Dr. Brandi Castellon MD Admit Provider, Attending Prov ider Active Team Status: Active Member Role Status Dates Dr. Marta Koehler MD Primary Care Provider Active Dr. Mitchell Frazier MD Emergency Provider Active Dr. Brandi Castellon MD Admit Provider, Other Provider Active Dr. Helen Torre DO Other Provider Active Dr. Miryam Lacey MD Attending Provider, Other Prov ider Active Team Status: Inactive Member Role Status Dates Dr. Marta Koehler MD Primary Care Provider Active Dr. Mitchell Frazier MD Emergency Provider Active Dr. Brandi Castellon MD Admit Provider, Other Provider Active Dr. Helen Torre DO Other Provider Active Dr. Miryam Lacey MD Attending Provider Active Team Status: Active Member Role Status Dates Dr. Marta Koehler MD Primary Care Provider, Other Provider Active Dr. Helen Torre DO Attending Provider Active Team Status: Active Member Role Status Dates Dr. Marta Koehler MD Primary Care Provider Active Dr. Alexis Hays MD Attending Provider Active Dr. Miryam Lacey MD Referring Provider Active Team Status: Inactive Member Role Status Dates Dr. Marta Koehler MD Primary Care Provider, Other Provider Active Dr. Helen Torre DO Attending Provider Active Team Status: Inactive Member Role Status Dates Dr. Marta Koehler MD Primary Care Provider Active Dr. Helen Torre DO Attending Provider Active Team Status: Active Member Role Status Dates Dr. Marta Koehler MD Primary Care Provider, Attend ing Provider Active Team Status: Inactive Member Role Status Dates Dr. Marta Koehler MD Primary Care Provider, Attend ing Provider Active Team Status: Active Member Role Status Dates Dr. Marta Koehler MD Primary Care Provider Active Dr. Giorgio Dillon MD Attending Provider Active Dr. Pasha Vargas MD Referring Provider Active Team Status: Inactive Member Role Status Dates Dr. Marta Koehler MD Primary Care Provider Active Dr. Pasha Vargas MD Attending Provider, Referri ng Provider Active Dr. Matty Huizar MD Other Provider Active Team Status: Inactive Member Role Status Dates Dr. Marta Koehler MD Primary Care Provider Active Dr. Pasha Vargas MD Attending Provider Active [employer] Relationship Specialty Start Date End Date Marta Koehler MD [address] [facility] [address] [place] [address] PCP - General Family Medicine 03/21/22 [employer] Relationship Specialty Start Date End Date Marta Koehler MD [address] [facility] [address] [place] [address] PCP - General Family Medicine 03/21/22 [employer] Relationship Specialty Start Date End Date Marta Koehler MD [address] [facility] [address] [place] [address] PCP - General Family Medicine 03/21/22 Team Status: Inactive Member Role Status Dates Dr. Marta Koehler MD Primary Care Provider Active Dr. Matty Huizar MD Attending Provider, Referr ing Provider Active Team Status: Active Member Role Status Dates Dr. Marta Koehler MD Primary Care Provider Active Dr. Matty Huizar MD Attending Provider, Referr ing Provider Active Dr. Duarte Espinal MD Other Provider Active Dr. Pasha Vargas MD Other Provider Active Team Status: Inactive Member Role Status Dates Dr. Marta Koehler MD Primary Care Provider Active Dr. Matty Huizar MD Attending Provider, Referr ing Provider Active Dr. Duarte Espinal MD Other Provider Active Dr. Pasha Vargas MD Other Provider Active Team Status: Inactive Member Role Status Dates Dr. Marta Koehler MD Primary Care Provider Active Dr. Duarte Espinal MD Attending Provider, Referring Pr ovider Active Dr. Pasha Vargas MD Other Provider Active Team Status: Active Member Role Status Dates Dr. Marta Koehler MD Primary Care Provider Active Team Status: Inactive Member Role Status Dates Dr. Marta Koehler MD Primary Care Provider Active Start: September 27, 2024 End: September 27, 2024 Dr. Marta Koehler MD Referring Provider Active Start: September 27, 2024 End: September 27, 2024 Irma Reynaga NP-C Attending Provider Active Start: September 27, 2024 End: September 27, 2024 Team Status: Inactive Member Role Status Dates Dr. Marta Koehler MD Primary Care Provider Active Start: September 27, 2024 End: September 27, 2024 Irma Reynaga NP-C Attending Provider Active Start: September 27, 2024 End: September 27, 2024 Team Status: Inactive Member Role Status Dates Dr. Marta Koehler MD Primary Care Provider Active Start: September 29, 2024 End: September 29, 2024 Abeba Shea TRUCK MECHANIC APPRENTICE, TRUCK MECHANIC APPRENTICE-C Attending Provider Active Start: September 29, 2024 End: September 29, 2024 Abeba Shea TRUCK MECHANIC APPRENTICE, TRUCK MECHANIC APPRENTICE-C Referring Provider Active Start: September 29, 2024 End: September 29, 2024 Team Status: Active Member Role Status Dates Dr. Marta Koehler MD Primary Care Provider Active Start: September 29, 2024 Abeba Shea TRUCK MECHANIC APPRENTICE, TRUCK MECHANIC APPRENTICE-C Referring Provider Active Start: September 29, 2024 Abeba Shea TRUCK MECHANIC APPRENTICE, TRUCK MECHANIC APPRENTICE-C Other Provider Active Sta rt: September 29, 2024 Dr. Alexis Hays MD Attending Provider Active S tart: September 29, 2024 Team Status: Active Member Role Status Dates Dr. Marta Koehler MD Primary Care Provider Active Start: September 30, 2024 Abeba Shea TRUCK MECHANIC APPRENTICE, TRUCK MECHANIC APPRENTICE-C Attending Provider Active Start: September 30, 2024 Team Status: Inactive Member Role Status Dates Dr. Marta Koehler MD Primary Care Provider Active Start: October 05, 2024 End: October 05, 2024 Dr. Marta Koehler MD Attending Provider Active Start: October 05, 2024 End: October 05, 2024 Team Status: Inactive Member Role Status Dates Dr. Marta Koehler MD Primary Care Provider Active Start: October 19, 2024 End: October 19, 2024 Irma Reynaga NP-C Attending Provider Active Start: October 19, 2024 End: October 19, 2024 Irma Reynaga NP-C Referring Provider Active Start: October 19, 2024 End: October 19, 2024 Team Status: Inactive Member Role Status Dates Dr. Marta Koehler MD Primary Care Provider Active Start: October 25, 2024 End: October 25, 2024 Irma Reynaga NP-C Attending Provider Active Start: October 25, 2024 End: October 25, 2024 Irma Reynaga NP-C Referring Provider Active Start: October 25, 2024 End: October 25, 2024 Team Status: Inactive Member Role Status Dates Dr. Marta Koehler MD Primary Care Provider Active Start: November 24, 2024 End: November 24, 2024 Dr. Marta Koehler MD Attending Provider Active Start: November 24, 2024 End: November 24, 2024 Dr. Marta Koehler MD Referring Provider Active Start: November 24, 2024 End: November 24, 2024 Team Status: Inactive Member Role Status Dates Dr. Marta Koehler MD Primary Care Provider Active Start: November 30, 2024 End: November 30, 2024 Dr. Marta Koehler MD Attending Provider Active Start: November 30, 2024 End: November 30, 2024 Dr. Marta Koehler MD Referring Provider Active Start: November 30, 2024 End: November 30, 2024 Team Status: Inactive Member Role Status Dates Dr. Marta Koehler MD Primary Care Provider Active Start: December 01, 2024 End: December 01, 2024 Irma Reynaga TRUCK MECHANIC APPRENTICE-C Attending Provider Active Start: December 01, 2024 End: December 01, 2024 Irma Reynaga TRUCK MECHANIC APPRENTICE-C Referring Provider Active Start: December 01, 2024 End: December 01, 2024 Team Status: Inactive Member Role Status Dates Dr. Marta Koehler MD Primary Care Provider Active Start: December 02, 2024 End: December 02, 2024 Dr. Marta Koehler MD Referring Provider Active Start: December 02, 2024 End: December 02, 2024 Irma Reynaga NP-C Attending Provider Active Start: December 02, 2024 End: December 02, 2024 Team Status: Inactive Member Role Status Dates Dr. Marta Koehler MD Primary Care Provider Active Start: December 09, 2024 End: December 09, 2024 Dr. Pasha Vargas MD Attending Provider Active Start: December 09, 2024 End: December 09, 2024 Team Status: Inactive Member Role Status Dates Dr. Marta Koehler MD Primary Care Provider Active Start: January 11, 2025 End: January 11, 2025 Carlita Bowman NP TRUCK MECHANIC APPRENTICE-C Attending Provider Active Start: January 11, 2025 End: January 11, 2025 Carlita Bowman NP TRUCK MECHANIC APPRENTICE-C Referring Provider Active Start: January 11, 2025 End: January 11, 2025 Team Status: Inactive Member Role Status Dates Dr. Marta Koehler MD Primary Care Provider Active Start: February 16, 2025 End: February 16, 2025 Dr. Duarte Espinal MD Attending Provider Active Start: February 16, 2025 End: February 16, 2025 Dr. Duarte Espinal MD Referring Provider Active Start: February 16, 2025 End: February 16, 2025 Team Status: Inactive Member Role Status Dates Dr. Marta Koehler MD Primary Care Provider Active Start: March 03, 2025 End: March 03, 2025 Dr. Marta Koehler MD Attending Provider Active Start: March 03, 2025 End: March 03, 2025 Dr. Marta Koehler MD Referring Provider Active Start: March 03, 2025 End: March 03, 2025 FOR RECORDS PERTAINING TO PATIENTS WHO ARE [...] BE BASED ON THE PRIMARY CLINICAL RECORDS. [facility] [employer] provides no warranty or guarantee of the accuracy or completeness of information in this document.
--- NOTE | 2025-06-01 23:11 | CT_ITS ---
PROCEDURE: BRAIN/HEAD WITHOUT CONTRAST 06/01/2025 REASON FOR EXAM: HEAD INJURY TECHNIQUE: BRAIN/HEAD WITHOUT CONTRAST Coronal and Sagittal reconstruction series were provided. One or more dose reduction techniques were used (e.g., Automated exposure control, adjustment of the mA and/or kV according to patient size, use of iterative reconstruction technique. RADIATION DOSE SUMMARY: CTDlvol: 44.99 mGy DLP: 829.85 mGycm COMPARISON: None. FINDINGS: No acute intracranial hemorrhage, extra-axial collection, mass effect or evidence of acute infarct. Ventricular and sulcal size and configuration are within normal limits for age. Mild subcutaneous contusional changes and laceration along the left frontotemporal scalp, lateral left periorbital region and overlying the left zygomatic arch. Globes are intact, with prior cataract surgery. No acute skull base, calvarial, or maxillofacial bone fracture is seen. Well- aerated paranasal sinuses and bilateral mastoid air cells. CT/Brain/Head without Contrast IMPRESSION: 1. No acute intracranial abnormality. 2. Mild subcutaneous contusional changes and laceration to the left frontotempo ral scalp. Reading Location: [id number]
[2025-06-01] MEDS: Lidocaine 2% /Epi 1:100 (20ml) 20 ML VIAL INFILT (23:23)
[2025-06-01] MEDS: Lidocaine/Epi/Tetracaine 50 ML 1 APPLIC TOPICAL (23:25)
[2025-06-01 23:45] VITALS: BP 217/69; PULSE 89; RESP 18; O2SAT 98
--- NOTE | 2025-06-01 23:59 | CT_ITS ---
PROCEDURE: SPINE THORACIC WITHOUT CONTRAS 06/02/2025 REASON FOR EXAM: Trauma, pain TECHNIQUE: SPINE THORACIC WITHOUT CONTRAS Coronal and Sagittal reconstruction series were provided. One or more dose reduction techniques were used (e.g., Automated exposure control, adjustment of the mA and/or kV according to patient size, use of iterative reconstruction technique). RADIATION DOSE SUMMARY: CTDlvol: 140 mGy DLP: 2819 mGycm COMPARISON: Chest x-ray 01/11/2025 FINDINGS: Multilevel disc space narrowing and osteophyte formation. No fracture or dislocation. No soft tissue injury. Stimulator wires enter thoracic canal. Dependent atelectasis. No acute lung findings. CT/Spine Thoracic without Contras IMPRESSION: No acute thoracic spine injury. Reading Location: [place] [id number]
--- NOTE | 2025-06-01 23:59 | CT_ITS ---
PROCEDURE: SPINE LUMBAR WITHOUT CONTRAST 06/02/2025 REASON FOR EXAM: Trauma, pain TECHNIQUE: SPINE LUMBAR WITHOUT CONTRAST Coronal and Sagittal reconstruction series were provided. One or more dose reduction techniques were used (e.g., Automated exposure control, adjustment of the mA and/or kV according to patient size, use of iterative reconstruction technique COMPARISON: 12/16/2019 x-ray RADIATION DOSE SUMMARY: CTDlvol: 140 mGy DLP: 2819 mGycm FINDINGS: Mild scoliosis. Mild and diffuse facet arthritis. Relatively preserved disc spaces. No acute soft tissue injury. CT/Spine Lumbar without Contrast IMPRESSION: No acute lumbar spine injury Reading Location: [place] [id number]
[2025-06-02 01:00] VITALS: BP 195/78; PULSE 81; RESP 20; O2SAT 97
--- NOTE | 2025-06-02 02:13 | EX.ED.DYSGE1 ---
HPI History of Present Illness Chief Complaint: Fall Informant: patient and family Narrative Narrative: Patient is a 79-year-old female with past medical history of hypertension hyperlipidemia and fibromyalgia. She states she takes tramadol daily secondary to pain from fibromyalgia. She reports roughly 1 hour prior to arrival she was stepping in between her den and living room which has 1 elevated step. She states that she caught her foot and fell striking her head. She denies any loss of consciousness or history of bleeding disorder or blood thinner use. She states she was able to get back up and ambulate following the injury/fall. She noted a laceration/tear to her left forearm and laceration to the left side of her face/head. With concern she may need sutures or have underlying trauma she called EMS and she was brought in for evaluation. Patient does states she was also able to walk out and meet EMS. 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 Weight loss, unintentional GERD (gastroesophageal reflux disease) BiPAP (biphasic positive airway pressure) dependence Renal cell carcinoma Rosacea Lipodermatosclerosis Fibromyalgia Cervical spondylosis Psoriatic arthritis Constipation IBS (irritable bowel syndrome) Asthma Sleep apnea Depression Arthritis History of back problems Home Medications Medication Instructions Recorded Last Taken Type calcium carbonate 600 mg PO DAILY SUPPLEMENT 02/05/18 Unknown History coenzyme Q10 100 mg-vitamin E 10 1 ea PO DAILY Check with primary 02/05/18 Unknown History unit capsule doctor mometasone-formoterol HFA 200 2 puff IH DAILY ASTHMA 02/05/18 11/13/22 History mcg-5 mcg/actuation aerosol inhaler montelukast 10 mg tablet 10 mg PO DAILY Check with primary 02/05/18 Unknown History doctor multivitamin with iron 1 ea PO DAILY SUPPLEMENT 02/05/18 Unknown History pravastatin 20 mg tablet 20 mg PO QHS CHOLESTEROL 02/05/18 Unknown History sitagliptin phosphate 100 mg tablet 100 mg PO DAILY DIABETES 02/05/18 Unknown History albuterol sulfate 90 mcg/actuation 6.7 g IH Q4H PRN PRN Wheezing 12/08/19 Unknown History aerosol inhaler omeprazole 40 mg capsule,delayed 40 mg PO DAILY Check with primary 06/26/20 07/14/20 History release doctor acetaminophen 650 mg tablet 650 mg PO BID Check with primary 10/30/22 Unknown History doctor docusate sodium 100 mg capsule 100 mg PO BID #20 caps 11/13/22 Unknown Rx (Colace) empagliflozin 25 mg tablet 25 mg PO DAILY 05/10/24 Unknown History (Jardiance) levothyroxine 150 mcg tablet 150 mcg PO QDAY 05/10/24 Unknown History linaclotide 290 mcg capsule 290 mcg PO DAILY PRN constipation 05/10/24 Unknown History (Linzess) carvedilol 6.25 mg tablet 6.25 mg PO BID #180 tabs 05/14/24 Unknown Rx furosemide 40 mg tablet 40 mg PO DAILY PRN WATER PILL 09/27/24 Unknown History vortioxetine 10 mg tablet 20 mg PO DAILY Check with primary 09/27/24 Unknown History (Trintellix) doctor [id number] See Rx Instructions PO .COMPLEX 01/17/25 Unknown Rx 36,000-114,000-180,000 unit #1,530 caps capsule,delay rel (Creon) acyclovir 800 mg tablet 800 mg PO QDAY 03/15/25 Unknown History insulin glargine 100 unit/mL (3 14 unit subcut QDAY diabetes 03/15/25 Unknown History mL) subcutaneous pen polyethylene glycol 3350 17 17 g PO QDAY 03/15/25 Unknown History gram/dose oral powder (Miralax) tramadol 50 mg tablet 50 mg PO TID Check with primary 03/15/25 Unknown History doctor diazepam 5 mg tablet (Valium) 5 mg PO TID PRN muscle spasm 5 06/02/25 Unknown Rx days #15 tabs oxycodone-acetaminophen 5 mg-325 1 tab PO Q6H PRN pain 5 days #20 06/02/25 Unknown Rx mg tablet (Percocet) tabs Allergy/AdvReac Type Severity Reaction Status Date / Time telithromycin (From [place]) Allergy Severe Nausea/Vom/ Verified 06/01/25 21:45 Diarrhea Penicillins (PCN) Allergy Swelling Verified 06/01/25 21:45 Family History Grandfather Arthritis Father Diabetes Grandmother Heart disease Hypertension Surgical History History of nephrectomy, left History of tubal ligation History of cholecystectomy History of hysterectomy history bilateral cataract surgery Social History household members: spouse Smoking Status: Former smoker alcohol intake: current alcohol intake frequency: holidays/special occasions only substance use type: does not use ROS ROS ED Constitutional Constitutional ED: Denies chills or fever(s) Eyes Eyes: Denies change in vision ENT ENT ED: Denies sore throat Cardiovascular Cardiovascular: Reports other Details: Negative syncope ; Denies chest pain, palpitations or racing heartbeat Respiratory/Chest Respiratory/Chest: Denies cough or dyspnea Gastrointestinal Gastrointestinal: Denies abdominal pain, diarrhea, nausea or vomiting Musculoskeletal Musculoskeletal: Reports back pain; Denies neck pain Integumentary Reports other Details: Positive skin tear left forearm Positive left facial laceration Neurologic Neurologic: Denies headache(s) Hematologic/Lymphatic Hematologic/Lymphatic: Denies easy bleeding or easy bruising EXAM Physical Exam Const Vital Signs: 06/01/25 21:45 06/01/25 21:52 06/01/25 23:45 Temperature 97.2 F L Temperature Source Temporal Pulse Rate 57 L 89 Respiratory Rate 20 H 18 Respiratory Effort Normal Respiratory Depth Normal Respiratory Pattern Normal Blood Pressure 151/101 H 217/69 H Blood Pressure Mean 117 118 Pulse Ox 100 98 Oxygen Delivery Method Room Air Room Air Room Air 06/02/25 01:00 06/02/25 02:24 Temperature 98 F Temperature Source Pulse Rate 81 90 Respiratory Rate 20 H 18 Respiratory Effort Respiratory Depth Respiratory Pattern Blood Pressure 195/78 H 186/86 H Blood Pressure Mean 117 119 Pulse Ox 97 98 Oxygen Delivery Method Room Air Positive well nourished, well developed and obese General Appearance ED: well developed Nutritional Appearance: obese HEENT HEENT Narrative: No signs of depressed or basilar skull fracture There is soft tissue swelling and ecchymosis around the left orbit consistent with history of head trauma/fall There is a checkmark appearing laceration to the left forehead/temporal portion of the face. The wound is 4 cm long and subcutaneous layer deep. There is minimal ooze of blood and no retained foreign body. Eyes PERRL and EOMs intact bilaterally Eyes Narrative: No hyphema noted Neck supple Neck Narrative: No bony deformity or step-off of the cervical spine no midline tenderness to palpation Chest Wall palpation of chest normal Resp normal respiratory effort and clear to auscultation bilaterally Cardio regular rate and regular rhythm GI normal to inspection, nondistended, normoactive bowel sounds, non-tender, non-distended and no masses Auscultation: normoactive bowel sounds Palpation: soft Back/Spine Back/Spine Narrative: No bony deformity or step-off of the thoracic or lumbar spine but there is upper midline thoracic and lower midline lumbar tenderness to palpation There is also bilateral paralumbar tension and spasm that worsens with sidebending and rotation Extremity Extremity Narrative: Pelvis is stable there is no shortening or external rotation of either lower extremity Patient can lift both arms without difficulty There is a skin tear to the dorsal aspect of the midportion of the left forearm without active bleeding or retained foreign body or signs of infection All compartments are soft and compressible going against compartment syndrome Neuro oriented x3, CN's II-XII intact bilaterally and no sensory deficits noted Sensorium / Orientation: alert Motor Exam: strength 5/5 throughout Psych mental status grossly normal Skin Skin Narrative: Skin tear to left forearm with left-sided head/facial laceration and hematoma as documented above MDM MDM MDM Narrative Medical decision making narrative: Patient presented to the ER hypertensive but has a past medical history of this. She reported a mechanical fall and therefore I felt no need for cardiac or syncope workup. In order to ensure she does not have underlying skull fracture or brain bleed a CT was obtained. With midline back pain as well there is concern for compression fracture versus spondylolysis so imaging was continued through the spine. All images revealed no signs of acute trauma. The patient had her facial wound closed as documented below. The forearm was a skin tear that was not amenable to closure and therefore he was simply wrapped and wound care provided. The patient is still able to ambulate and does not have underlying signs of internal trauma and therefore there is no need for admission or further workup and she is otherwise safe for discharge Patient had the left facial/head wound cleaned with chlorhexidine. The area was anesthetized and local fashion with 8 mL of 2% lidocaine with epinephrine. The area was copiously irrigated with normal saline. Then fifteen 5-0 Ethilon sutures were placed in simple interrupted fashion. This brought the wound edges together well with good approximation. Patient tolerated the procedure well without complication History & Record Review Discussion w/independent historian: Patient and Family Radiography Diagnostic Testing: Clinical Impression(s) from Imaging Studies Brain CT 06/01/25 23:11 IMPRESSION: 1. No acute intracranial abnormality. 2. Mild subcutaneous contusional changes and laceration to the left frontotemporal scalp. Reading Location: [id number] Lumbar Spine CT 06/01/25 23:59 IMPRESSION: No acute lumbar spine injury Reading Location: [facility] 06/01/25 23:59 IMPRESSION: No acute thoracic spine injury. Reading Location: [facility] Discharge Plan Triage Chief Complaint: Fall ED Provider: Eusebio Mayen Dx/Rx/DC Orders Clinical Impression: Head injury, Facial laceration, Spasm of lumbar paraspinous muscle, Fibromyalgia, Hypertension, Hyperlipidemia, Skin tear of left forearm without complication Instructions: Muscle Spasm, ED Head Injury (Adult), ED Laceration, All Closures Prescriptions: New oxycodone-acetaminophen [Percocet] 5-325 mg tablet 1 tab PO Q6H PRN (Reason: pain) 5 Days Qty: 20 0RF diazepam [Valium] 5 mg tablet 5 mg PO TID PRN (Reason: muscle spasm) 5 Days Qty: 15 0RF No Action omeprazole 40 mg capsule,delayed release(DR/EC) 40 mg PO DAILY levothyroxine 150 mcg tablet 150 mcg PO QDAY Linzess 290 mcg capsule 290 mcg PO DAILY PRN (Reason: constipation) Jardiance 25 mg tablet 25 mg PO DAILY carvedilol 6.25 mg tablet 6.25 mg PO BID Qty: 180 3RF Rx Instructions: must administer with a meal/food acyclovir 800 mg tablet 800 mg PO QDAY polyethylene glycol 3350 [Miralax] 17 gram/dose powder 17 g PO QDAY furosemide 40 mg tablet 40 mg PO DAILY PRN (Reason: WATER PILL) calcium carbonate 600 MG tablet 600 mg PO DAILY montelukast 10 MG tablet 10 mg PO DAILY pravastatin 20 MG tablet 20 mg PO QHS multivitamin with iron 1 EACH tablet 1 ea PO DAILY sitagliptin phosphate 100 MG tablet 100 mg PO DAILY mometasone-formoterol 8.8 GM HFA aerosol inhaler 2 puff IH DAILY coenzyme [id number] E 1 EACH capsule 1 ea PO DAILY insulin glargine 100 unit/mL (3 mL) insulin pen 14 unit subcut QDAY albuterol sulfate 6.7 GM HFA aerosol inhaler 6.7 g IH Q4H PRN PRN (Reason: Wheezing) acetaminophen 650 mg Tablet 650 mg PO BID docusate sodium [Colace] 100 mg capsule 100 mg PO BID Qty: 20 0RF Trintellix 10 mg tablet 20 mg PO DAILY Patient Comments: take 1 tablet by mouth once daily tramadol 50 mg tablet 50 mg PO TID Creon 36,000-114,000- 180,000 unit capsule,delayed release(DR/EC) See Rx Instructions PO .COMPLEX Qty: 1530 3RF Rx Instructions: take 1-2 with snacks and 2-3 with meals, EPI K86.81 Primary Care Provider: Jass Koehler Referrals: Jass Koehler MD [Primary Care Provider] - Activity Restrictions/Additional Instructions: Please stop taking your tramadol and begin using the Percocet and Valium for the next 5 days for improved pain control and muscle spasm relief. Continue to stretch and heat your low back to reduce pain and speed healing. Follow-up with your family doctor or return to the ER in 7 to 10 days for suture removal. Please wash your skin tear to the left arm with soap and water daily to prevent infection. Cover with a nonstick bandage to help with healing. Return to the ER should you have any further concerns Print Language: Latvian Disposition Disposition: Home, Self Care Discharge Date/Time: 06/02/25 02:25
[2025-06-02 02:24] VITALS: BP 186/86; PULSE 90; RESP 18; TEMP 36.6; O2SAT 98
== END 2025-06-02 02:25 | disposition home or self-care (01) ==
PROVIDERS: Emergency Provider Emergency Medicine; PCP Family Medicine; Visit Provider Emergency Medicine
DX: S01.81XA Laceration without foreign body of other part of head, initial encounter (principal); N18.4 Chronic kidney disease, stage 4 (severe); E11.22 Type 2 diabetes mellitus with diabetic chronic kidney disease; Z79.4 Long term (current) use of insulin; I12.9 Hypertensive chronic kidney disease with stage 1 through stage 4 chronic kidney disease, or unspecified chronic kidney disease; S51.802A Unspecified open wound of left forearm, initial encounter; Z90.710 Acquired absence of both cervix and uterus; Z87.891 Personal history of nicotine dependence; M62.830 Muscle spasm of back; M79.7 Fibromyalgia; E78.5 Hyperlipidemia, unspecified; Z79.899 Other long term (current) drug therapy; W10.9XXA Fall (on) (from) unspecified stairs and steps, initial encounter; Z85.89 Personal history of malignant neoplasm of other organs and systems; G47.30 Sleep apnea, unspecified; Z99.81 Dependence on supplemental oxygen; J45.909 Unspecified asthma, uncomplicated; Z79.51 Long term (current) use of inhaled steroids; K21.9 Gastro-esophageal reflux disease without esophagitis; E03.9 Hypothyroidism, unspecified; Z79.890 Hormone replacement therapy; Z90.5 Acquired absence of kidney; Z98.51 Tubal ligation status; Z90.49 Acquired absence of other specified parts of digestive tract
CPT/HCPCS: 12013; 70450; 72128; 72131; 96374; 96375; 99285; A4216; J2405

== ENCOUNTER → 2025-07-01 | Outpatient (CLI) | payer MEDICARE, OTHER, SELFPAY ==
[2025-07-01 18:40] LABS: Albumin, Serum 3.7 g/dL (3.4-4.8); Anion Gap 14 (5-15); BUN 28 mg/dL (4-19); BUN/Creat Ratio 16.9 RATIO (10-20); Calcium,Total 9.1 mg/dL (7.6-11.0); Carbon Dioxide 18.7 mmol/L (21.0-32.0); Chloride 104 mmol/L (98-108); Glucose 149 mg/dL (70-99); Potassium 4.7 mmol/L (3.3-5.1)
== END | disposition home or self-care (01) ==
LOC: MFPLAB 14:57
PROVIDERS: PCP Family Medicine; Visit Provider Internal Medicine Nephrology
DX: N18.4 Chronic kidney disease, stage 4 (severe) (principal)
CPT/HCPCS: 36415; 80069

== ENCOUNTER → 2025-07-04 | Outpatient (CLI) | payer MEDICARE, OTHER, SELFPAY ==
[2025-07-04 15:48] LABS: Mucous, Urine 0 SEEN /hpf (<or=2+); Red Blood Cells-Urine 0 SEEN /hpf (0-5); Squamous Epithelial Cells - UA 0 SEEN /hpf (5-10)
[2025-07-04 22:33] LABS: Color, Urine Straw (Yellow); Glucose, Dipstick 1000 mg/dl (Normal); Ketone-Dipstick Negative (Negative); Leukocyte Esterase-Dipstick 25 /ul (Negative); Nitrite-Dipstick Negative (Negative); Occult Blood-Urine 10 /ul (Negative); Protein-Dipstick 100 mg/dl (Negative); Specific Gravity, Urine 1.020 (1.002-1.030); Urine Bilirubin Dipstick Negative (Negative)
== END | disposition home or self-care (01) ==
LOC: LABSPEC 15:46
PROVIDERS: PCP Family Medicine; Referring Provider Family Medicine; Visit Provider Family Medicine
DX: R82.81 Pyuria (principal)
CPT/HCPCS: 81001; 87086

== ENCOUNTER → 2025-08-05 | Outpatient (CLI) | payer MEDICARE, OTHER, SELFPAY ==
[2025-08-05 18:46] LABS: Hematocrit 38.1 % (37-47); Hemoglobin 12.7 g/dL (12.0-15.0); Immature Granulocytes Count 0.020 X10^3/uL (0.0-0.0); Mean Corp Hgb Conc 33.3 g/dL (32-36); Mean Corpuscular Volume 90.5 fL (81-99); Mean Platelet Vol. 11.2 fl (6.2-12.0); NRBC Flagged by Analyzer 0 % (0-5); Platelet Count 201 K/mm3 (150-450); RBC Distribution Width CV 12.1 % (11.6-14.6); RBC Distribution Width SD 40.0 fl (35.1-43.9); Red Blood Count 4.21 M/mm3 (4.2-5.4); White Blood Count 6.4 K/mm3 (4.4-11.0)
[2025-08-05 19:06] LABS: PTHIN 86 pg/mL (11-61)
[2025-08-05 19:29] LABS: AST(SGOT) 20 U/L (<=31); Alanine Aminotransfer ALT/SGPT 18 U/L (<=34); Albumin, Serum 3.7 g/dL (3.4-4.8); Alkaline Phosphatase 74 U/L (35-104); Anion Gap 13 (5-15); BUN 26 mg/dL (4-19); BUN/Creat Ratio 15.1 RATIO (10-20); Calcium,Total 9.1 mg/dL (7.6-11.0); Carbon Dioxide 22.1 mmol/L (21.0-32.0); Chloride 102 mmol/L (98-108); Cholesterol 175 mg/dL (<=200); Globulin 2.7 g/dL (2.2-4.2); Glucose 222 mg/dL (70-99); Low Density Lipoprotein Calc. 76 mg/dL; Potassium 4.3 mmol/L (3.3-5.1); Triglycerides 210 mg/dL; Very Low Density Lipoprotein 42 mg/dL (5-40); Vitamin D,25 Hydroxy 34.0 ng/mL (30-100); cholesterol:hdl ratio screen 3.07
[2025-08-09 13:08] LABS: Vitamin D 1,25-Dihydroxy 22.6 pg/mL (24.8-81.5)
== END | disposition home or self-care (01) ==
LOC: MFPLAB 15:02
PROVIDERS: PCP Family Medicine; Referring Provider Family Medicine; Visit Provider Family Medicine
DX: E03.9 Hypothyroidism, unspecified (principal); N18.4 Chronic kidney disease, stage 4 (severe); E11.22 Type 2 diabetes mellitus with diabetic chronic kidney disease
CPT/HCPCS: 36415; 80053; 80061; 82306; 82652; 83036; 83970; 84439; 84443; 85025